=== PATIENT | male | born 1955 | race Caucasian/White ===

== ENCOUNTER 2016-07-04 17:17 | Inpatient (IN) | payer MEDICAID, OTHER ==
[~2016-07-04 17:17] MED LIST: MANNITOL 12.5 GM/50 ML VIAL IV ONE; NALOXONE HCL 0.4 MG/ML AMP IV ONE; NOREPINEPHRINE 4 MG/4 ML AMP IV ONE; NORMOSOL R INJ 1,000 ML IV ONE; PHENYLEPH/NS 1000 MCG/10 ML SYR IV ONE; SODIUM CHLOR 0.9% 250 ML INJ 250 ML IV ONE; SODIUM CHLORID 0.9% 500 ML INJ 500 ML IV ONE; SODIUM CHLORIDE 0.9% INJ 100 ML IV ONE; VECURONIUM BROMIDE 20 MG VIAL IV ONE; ePHEDrine/NS 25 MG/5 ML SYR IV ONE
[2016-07-04 18:50] VITALS: PULSE 47
[2016-07-04 19:00] VITALS: O2SAT 98
[2016-07-04] MEDS ORDERED: ESMOLOL 2500 MG/NS 250 ML PREMIX DRIP IV SCH (19:15)
[2016-07-04] MEDS ORDERED: hydrALAZINE HCL 20 MG/ML VIAL IV PRN (19:15)
[2016-07-04] MEDS ORDERED: LABETALOL HCL 100 MG/20 ML VIAL IV PRN (19:15)
[2016-07-04] MEDS ORDERED: niCARdipine INJ 50 MG in SODIUM CHLOR 0.9% 250 ML INJ 230 ML IV SCH (19:15)
[2016-07-04] MEDS ORDERED: EPINEPHrine HCL (1:10,000) 1 MG/10 ML SYRINGE ONE (19:34)
[2016-07-04] MEDS ORDERED: ATROPINE SULFATE 1 MG/10 ML SYRINGE ONE (19:34)
[2016-07-04] MEDS ORDERED: LIDOCAINE HCL 2% 100 MG/5 ML SYRINGE ONE (19:34)
[2016-07-04 19:35] VITALS: O2SAT 92
--- NOTE | 2016-07-04 19:50 | HHI.HP ---
History of Present Illness Chief Complaint: acute aortic dissection History of Present Illness 60 yo male adm as emergent transfer for acute dissection. Story from referring hospital and pt's brother is that he had shearing back pain today and presented to the ED. A CT of the chest showed a type B dissection. The patient was intubated at the outside facility so the history is obtained from records and the brother. At the time of arrival, the patient has a junctional rhythm and ST changes c/w ischemia. By report, he was moving everything prior to intubation and only complaining of back pain. Past/Family/Social History Past Medical History HTN ?CAD ?CHF Hepatitis alcoholism ?COPD noncompliance Past Surgical History unknown Social History drinker, smoker Family History unknown Coded Allergies: No Known Allergies (Verified , 01/18/07) Review of Systems ROS Limitations: Clinical Condition, Intubated Physical Exam Vitals/I&O Date Time Temp Pulse Resp B/P Pulse Ox O2 Delivery O2 Flow Rate FiO2 07/04/16 19:00 98 100 07/04/16 18:50 95 Mechanical Ventilator 100 07/04/16 18:50 47 Neuro: intubated sedated HEENT: NC/AT Neck: no JVD Heart: reg rate Lungs: intubated Abdomen: not distended Vascular: palpable R femoral but no L femoral pulse Extremities: L leg cooler than pending CTA of chest shows type B dissection. Unfortunately the CT does not include the abdomen and pelvis Assessment and Plan Plan 1. Stat CTA C/A/P 2. Likely TEVAR and possible ex lap, fasciotomies of LLE 3. I talked with the patient's brother (TIM, TANJA) and his about the risks , including but not limited to worsening dissection, , renal failure, paralysis, stroke. 4. Likely emergency surgery - potentially to include TEVAR, potential L C-SC bypass, potential fem-fem bypass, potential laparotomy. Hamlet Long MD Jul 04, 2016 19:50
[2016-07-04] MEDS ORDERED: IOHEXOL 350 MG/ML 10 ML VIAL (for RAD DIAG) IV ONE (19:58)
[2016-07-04 20:00] VITALS: BP 104/57; PULSE 40; PULSE 46; RESP 12; TEMP 97.8; O2SAT 95
[2016-07-04] MEDS ORDERED: BUPIVACAINE/EPINEPHRINE 0.5% PF 30 ML VIAL ONE (20:21)
[2016-07-04] MEDS ORDERED: THROMBIN (TOPICAL) 5,000 UNIT VIAL ONE (20:21)
[2016-07-04] MEDS ORDERED: GELFOAM SIZE 100 ONE (20:21)
[2016-07-04] MEDS ORDERED: PROTAMINE SULFATE 50 MG/5 ML VIAL ONE (20:22)
[2016-07-04] MEDS ORDERED: ceFAZolin INJ 1,000 MG VIAL ONE (20:22)
[2016-07-04] MEDS ORDERED: HEPARIN SODIUM - SQ 10,000 UNITS/ML VIAL ONE (20:22)
[2016-07-04] MEDS ORDERED: HEPARIN SODIUM - IV 10,000 UNITS/10 ML VIAL ONE (20:38)
--- NOTE | 2016-07-04 20:38 | RADRPT ---
EXAM DATE/TIME: 07/04/2016 19:53 [facility] COMPARISON: No previous studies available for comparison. INDICATIONS : Rule out aortic dissection. Absent left femoral pulse. IV CONTRAST: 100 cc Omnipaque 350 (iohexol) IV RADIATION DOSE: 15.13 CTDIvol (mGy) MEDICAL HISTORY : Non-responsive. SURGICAL HISTORY : Non-responsive. ENCOUNTER: Subsequent ACUITY: 1 day PAIN SCALE: Non-responsive LOCATION: Bilateral lower quadrant TECHNIQUE: Volumetric scanning was performed using a multi-row detector CT scanner. The data was post processed with a variety of visualization algorithms including full volume maximum intensity projection, multi -planar sliding thin slab reformation, curved planar reformation, and surface rendering techniques. Using automated exposure control and adjustment of the mA and/or kV according to patient size, radiat ion dose was kept as low as reasonably achievable to obtain optimal diagnostic quality images. FINDINGS: Extensive aortic dissection is present. The aortic dissection begins in the proximal transverse aorta just distal to the origin of the left subclavian artery. Initially the false lumen is thrombosed thr oughout most of the thoracic aorta but does contain contrast in the distal thoracic aorta. The dissection extends into the renal arteries bilaterally. There is occlusion of the right renal art jairo with absent perfusion to the right kidney. The anterior portion of the left kidney does not perfu se. The only perfused kidney is the posterior aspect of the left kidney. Nonobstructing bilateral micheline al calculi. The dissection extends into the proximal celiac and superior mesenteric arteries. There is a stenosis of the proximal celiac from a thrombosed false lumen and there is also stenosis of the superior mese nteric artery from thrombosed false lumen. Stenosis is moderate, approximately 50%. The inferior mesenteric artery is patent. The dissection extends into both common iliac arteries and external iliac arteries. The right interna l iliac artery is occluded. The left internal iliac artery contains dissection but perfuses. There is occlusion of the distal left external iliac artery and poor perfusion of the left femoral ar tylor. On the right side the dissection extends into the superficial femoral artery and profunda femor is artery without occlusion. Endotracheal tube tip is in satisfactory position. There is dependent consolidation in both lungs. No acute bony abnormalities. CONCLUSION: 1. Extensive aortic dissection extending from the proximal transverse aorta just distal to the origin of the left subclavian artery. Dissection extends distally through both superficial femoral arteries . 2. Occlusion of the right renal artery with absent perfusion of the right kidney. Dissection of th e left renal artery with absent perfusion of the anterior left kidney. 3. Thrombosed false lumen in the proximal celiac artery and superior mesenteric artery resulting in m oderate stenosis. 4. Occlusion of left external iliac artery and right internal iliac artery. 5. ET tube in satisfactory position. Dependent consolidation in both lungs. Probable mild liver cirrh osis. No obstruction or free fluid. Russell catheter in decompressed bladder. See above discussion. Rodriguez Jeff MD on July 04, 2016 at 20:24 Board Certified Radiologist. This report was verified electronically.
[2016-07-04 20:49] LABS: AUTOMATED NEUTROPHIL # 12.1 TH/MM3 (1.8-7.7); BASOPHIL # 0.1 TH/MM3 (0-0.2); BASOPHIL % 0.5 % (0.0-2.0); EOSINOPHIL % 0.2 % (0.0-4.0); HEMO FLAGS DIFF FINAL; LYMPH % 5.4 % (9.0-44.0); LYMPHOCYTE # 0.7 TH/MM3 (1.0-4.8); MEAN CELL VOLUME 93.3 FL (80.0-100.0); MEAN CORPUSCULAR HEMOGLOBIN 31.6 PG (27.0-34.0); MEAN CORPUSCULAR HGB CONC 33.9 % (32.0-36.0); MONO % 2.8 % (0.0-8.0); NEUT % 91.1 % (16.0-70.0); PLATELET COUNT 288 TH/MM3 (150-450); RED BLOOD COUNT 4.61 MIL/MM3 (4.50-5.90); RED CELL DISTRIBUTION WIDTH 13.2 % (11.6-17.2); WHITE BLOOD COUNT 13.3 TH/MM3 (4.0-11.0)
[2016-07-04 21:15] VITALS: O2SAT 92
[2016-07-04 21:19] LABS: APTT (PATIENT) 28.4 SEC (24.3-30.1)
[2016-07-04 21:21] LABS: ALKALINE PHOSPHATASE 98 U/L (45-117); ALT (GPT) 57 U/L (12-78); ANION GAP 13 MEQ/L (5-15); AST (GOT) 65 U/L (15-37); BICARBONATE 18.4 MEQ/L (21.0-32.0); BLOOD UREA NITROGEN 13 MG/DL (7-18); CHLORIDE 104 MEQ/L (98-107); GLOMERULAR FILTRATION RATE 42 ML/MIN (>89); POTASSIUM 4.8 MEQ/L (3.5-5.1); SODIUM (NA) 135 MEQ/L (136-145); TOTAL BILIRUBIN ADULT 0.9 MG/DL (0.2-1.0)
--- NOTE | 2016-07-04 21:25 | PD.VS.PN ---
Pre-operative Note Pre-operative diagnosis: acute TBAD with visceral, LE malperfusion Planned procedure: TEVAR, possible CSC bypass, possible L LE revascularization, possible ex lap Interval History: intubated, emergent transfer Labs: Laboratory Results Test 07/04/16 20:20 White Blood Count 13.3 TH/MM3 (4.0-11.0) Red Blood Count 4.61 MIL/MM3 (4.50-5.90) Hemoglobin 14.6 GM/DL (13.0-17.0) Hematocrit 43.0 % (39.0-51.0) Mean Corpuscular Volume 93.3 FL (80.0-100.0) Mean Corpuscular Hemoglobin 31.6 PG (27.0-34.0) Mean Corpuscular Hemoglobin 33.9 % Concent (32.0-36.0) Red Cell Distribution Width 13.2 % (11.6-17.2) Platelet Count 288 TH/MM3 (150-450) Mean Platelet Volume 9.5 FL (7.0-11.0) Sodium Level 135 MEQ/L (136-145) Potassium Level 4.8 MEQ/L (3.5-5.1) Chloride Level 104 MEQ/L (98-107) Carbon Dioxide Level 18.4 MEQ/L (21.0-32.0) Anion Gap 13 MEQ/L (5-15) Blood Urea Nitrogen 13 MG/DL (7-18) Random Glucose 234 MG/DL (74-106) Calcium Level 8.3 MG/DL (8.5-10.1) Blood: T&C 6U PRBC, 4U FFP Imaging: Last Impressions Aorta CTA 07/04/16 0000 Signed Impressions: Service Date/Time: June 19:53 - CONCLUSION: 1. Extensive aortic dissection extending from the proximal transverse aorta just distal to the origin of the left subclavian artery. Dissection extends distally through both superficial femoral arteries. 2. Occlusion of the right renal artery with absent perfusion of the right kidney. Dissection of the left renal artery with absent perfusion of the anterior left kidney. 3. 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 4. Occlusion of left external iliac artery and right internal iliac artery. 5. ET tube in satisfactory position. Dependent consolidation in both lungs. Probable mild liver cirrhosis. No obstruction or free fluid. Russell catheter in decompressed bladder. See above discussion. Rodriguez Jeff MD Orders: NPO Emergent Surgery Post-operative destination: [facility] Operative site marked: No (N/A) Consent: Informed consent has been obtained from the NOK of Hero Trujillo, his brother. I have explained the procedure in detail and discussed the risks, benefits, and potential complications. All questions have been answered. Patient contact information: brother (Luis) [phone] [email or web address] (Chanda) [phone] Hamlet Long MD Jul 04, 2016 21:25
[2016-07-04] MEDS ORDERED: SODIUM CHLOR 0.9% IV ONE (21:30)
[2016-07-04] MEDS ORDERED: METHYLPREDNISOLONE SO SUCC IV ONE (21:30)
[2016-07-04 22:03] LABS: BLOOD GAS BASE EXCESS -8.2 mmol/L (-2-2); BLOOD GAS CARBOXYHEMOGLOBIN 1.7 % (0-4); BLOOD GAS HCO3 18 mmol/L (22-26); BLOOD GAS METHEMOGLOBIN 0.4 % (0-2); BLOOD GAS O2 HGB SATURATION 93 % (90-100); BLOOD GAS OXYGEN CONTENT 19.1 Vol % (12.0-20.0); BLOOD GAS PCO2 42 mmHg (38-42); BLOOD GAS PO2 84 mmHG (61-120); BLOOD GAS TOTAL HGB 14.6 G/DL (12.0-16.0); CRITICAL VALUE YES; TEMP CORR TO 98.6
[2016-07-04 22:04] LABS: DRAW SITE ART LINE; FIO2 100 %; NUMBER OF ARTERIAL PUNCTURES 0; STAT YES; VENT SETTINGS AC12/500 5 PEEP
[2016-07-04] MEDS ORDERED: IOHEXOL 300 MG/ML 50 ML BTL (for RAD DIAG) OTHER ONE (22:04)
--- NOTE | 2016-07-04 22:18 | PD.PROCEDR ---
Procedure Note Procedure Procedure: Arterial Line Placement Right radial arterial line Diagnosis: Acute type B dissection Indications: For beat to beat hemodynamic monitoring Consent: Consent is deemed emergent or medically necessary Description of the Procedure: The right wrist was prepped and draped sterilely. 1% lidocaine was used for local anesthesia. The pulse was located and a needle was advanced into the artery. A 20 gauge, 12 cm catheter was advanced into the artery using a modified Seldinger technique. The catheter was sutured to the skin and a sterile dressing was applied. The catheter was connected to a pressure transducer and an arterial waveform was noted. There were no immediate complications noted. There was minimal EBL. I personally performed the procedure. Dennis Rich MD Jul 04, 2016 22:18
--- NOTE | 2016-07-04 22:18 | PD.CONS ---
[facility] Service Critical Care Medicine Consult Requested By Uzair Long Reason for Consult Acute Type B dissection Primary Care Physician Unknown History of Present Illness This is a 60-year-old male who is transferred emergently from outside hospital with per report and acute type B dissection. Apparently the patient told his family member today that he had searing back pain and was taken to the emergency department. A CT of the chest at that time showed a type B dissection. The patient was intubated the outside facility and transferred to [facility] for emergent evaluation management. Unfortunately, the patient is unable to provide any additional history at this time. I was at bedside and the patient arrived to the surgical intensive care unit. Dr. Long and I both evaluated the patient and when he arrived he was in a junctional bradycardia with heart rate in the 40s. He had obvious ST depressions in lead II on telemetry. Our initial concern was that we have extended the dissection into the type A dissection. We also did not have any CT of the abdomen and pelvis. On her physical exam, the patient had a cold left foot without pulses. I emergently placed a right radial arterial line, please see separate procedure note for details. We then went emergently to the CT scanner for repeat CT aortogram of the chest abdomen and pelvis to investigate the extent to which the dissection has extended. The CT aortogram demonstrated that this was still a type B dissection with the celiac artery being significantly compressed and possibly comprising flow from the dissection flap. The right kidney appears to be perfused off the false lumen and not the true lumen, and there is no contrast going down the left femoral artery. Patient was then brought back to the intensive care unit. His blood pressure is controlled on nicardipine infusion for goal systolic blood pressure less than 110. A 12-lead EKG at that time was done which demonstrated significant ST depressions in the inferior leads as well as the far lateral leads consistent with subendocardial ischemia. At the request of Dr. Long in anticipation of going emergently to the operative theater, I placed a lumbar drain for spinal protection, please see separate procedure note for details. At that point the patient was taken emergently to the operating room. Critical care medicine is been consulted to evaluate and manage the patient's type B dissection, hemodynamic's, acute hypoxic respiratory failure. Review of Systems ROS Limitations: Clinical Condition, Intubated, Altered Mental Status, Unresponsive Past Family Social History Allergies: Coded Allergies: No Known Allergies (Verified , 01/18/07) Past Medical History The patient is unable to provide a past medical history. Per outside hospital records: Hypertension Coronary artery disease Congestive heart failure Hepatitis C Alcoholism COPD Medication noncompliance Past Surgical History Patient is unable to provide past surgical history given his clinical condition Reported Medications Patient is unable to provide medication list due to his clinical condition Active Ordered Medications See MAR Family History Patient is unable to provide a family history due to his clinical condition Social History Patient is unable to provide a social history due to his clinical condition. Per outside hospital records positive EtOH use and positive tobacco use Physical Exam Vital Signs Vital Signs Date Time Temp Pulse Resp B/P Pulse Ox O2 Delivery O2 Flow Rate FiO2 07/04/16 19:00 98 100 07/04/16 18:50 95 Mechanical Ventilator 100 07/04/16 18:50 47 Physical Exam GENERAL: Middle-aged male, lying in bed, intubated, sedated, critically ill HEENT: Normocephalic. Atraumatic. Pupils 2 mm, equal, round, reactive, conjugate. Mucous membranes are moist. NECK: He has midline. No JVD. Orotracheally intubated CHEST: Equal chest rise. Clear to auscultation. CARDIOVASCULAR: Bradycardic rate, regular rhythm. Appears narrow complex and junctional by telemetry. No appreciable murmurs. ABDOMEN: Soft, nontender, nondistended. No guarding. MUSCULOSKELETAL: Right radial pulse 2+, left radial pulses 1+, right DP pulse 1+ , left DP pulse absent. Left foot is noticeably cold, poikilothermy, pulseless , with poor capillary refill. Right foot is warm with modest Refill NEUROLOGICAL: RASS -5. Intubated, sedated. Laboratory Laboratory Tests Test 07/04/16 07/04/16 19:20 20:20 Blood Type A POSITIVE Antibody Screen NEGATIVE Crossmatch Leukocyte-Reduced Red Blood Cells Blood Bank Comment White Blood Count 13.3 Red Blood Count 4.61 Hemoglobin 14.6 Hematocrit 43.0 Mean Corpuscular Volume 93.3 Mean Corpuscular Hemoglobin 31.6 Mean Corpuscular Hemoglobin 33.9 Concent Red Cell Distribution Width 13.2 Platelet Count 288 Mean Platelet Volume 9.5 Neutrophils (%) (Auto) 91.1 Lymphocytes (%) (Auto) 5.4 Monocytes (%) (Auto) 2.8 Eosinophils (%) (Auto) 0.2 Basophils (%) (Auto) 0.5 Neutrophils # (Auto) 12.1 Lymphocytes # (Auto) 0.7 Monocytes # (Auto) 0.4 Eosinophils # (Auto) 0.0 Basophils # (Auto) 0.1 CBC Comment DIFF FINAL Differential Comment Activated Partial 28.4 Thromboplast Time Sodium Level 135 Potassium Level 4.8 Chloride Level 104 Carbon Dioxide Level 18.4 Anion Gap 13 Blood Urea Nitrogen 13 Creatinine 1.67 Estimat Glomerular Filtration 42 Rate Random Glucose 234 Calcium Level 8.3 Total Bilirubin 0.9 Aspartate Amino Transf 65 (AST/SGOT) Alanine Aminotransferase 57 (ALT/SGPT) Alkaline Phosphatase 98 Total Protein 6.9 Albumin 2.6 Result Diagram: 07/04/16201907/04/162019 Imaging I performed emergent bedside transthoracic critical care echocardiography which demonstrated grossly preserved biventricular function. No significant valvular lesions. No pericardial effusion. I did see a dissection flap in the descending thoracic aorta in parasternal long axis. I did not see any dissection flap in the ascending aorta in both parasternal long and parasternal short axis. I did not visualize any significant aortic regurgitation. Last 24 hours Impressions Aorta CTA 07/04/16 0000 Signed Impressions: Service Date/Time: June 19:53 - CONCLUSION: 1. Extensive aortic dissection extending from the proximal transverse aorta just distal to the origin of the left subclavian artery. Dissection extends distally through both superficial femoral arteries. 2. Occlusion of the right renal artery with absent perfusion of the right kidney. Dissection of the left renal artery with absent perfusion of the anterior left kidney. 3. 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 4. Occlusion of left external iliac artery and right internal iliac artery. 5. ET tube in satisfactory position. Dependent consolidation in both lungs. Probable mild liver cirrhosis. No obstruction or free fluid. Russell catheter in decompressed bladder. See above discussion. 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 He is very critically ill this time. Plan by systems: Neurologic: Acute encephalopathy Risk for spinal cord hypoperfusion Possible alcohol abuse Lumbar drain placement Propofol, fentanyl for goal RASS -2 Spinal cord injury protection protocol per Dr. Long Watch for withdrawal symptoms Continue lumbar drain at 10 cm Narcan drip per protocol Respiratory: Acute hypoxic and hypercarbic respiratory failure Vent bundle Head of bed elevated. We will keep patient flat and in mild reverse Trendelenburg given recent endovascular procedure Does not meet SBT criteria today given his hemodynamic instability Wean FiO2 for goal SPO2 greater than 90% Nebs every 6 and every 2 when necessary Cardiovascular: Acute type B dissection Evidence of myocardial ischemia Junction bradycardia Goal systolic blood pressure less than 110 prior to securing. Goal heart rate less than 70 prior to securing Nicardipine to achieve these goals given that the patient is already bradycardic After the patient returns to the operating room secured, we will maintain an map goal greater than 90 Renal: Acute kidney injury Likely secondary to hyperperfusion of the kidney -- Strict I/Os Russell placement Every hour urine outputs FEN/GI: Intravascular hypovolemia Hyperkalemia Evidence of mesenteric ischemia by CT Nothing by mouth ICU electrolyte protocol Daily BMP Trend lactates Heme/ID: Leukocytosislikely reactive Daily CBC No infectious etiology suspected this time Perioperative antibiotics per surgeon Daily coags Endocrine: Hyperglycemia of critical illness -- SSI, medium scale, every 6 hours Prophylaxis: GI Prophylaxis Protonix 40 mg IV every 24 DVT Prophylaxis -- SCDs We will avoid using Lovenox given the spinal drain. The patient may receive heparin subcutaneous every 12 or may remain on a heparin infusion if needed. Patient may additionally receive aspirin, but not Plavix. Lines: 07/04 right radial arterial line 07/04 Russell 07/04 lumbar drain Dispo: Admit to the surgical intensive care unit. He remains very critically ill This patient remains critically ill with one or more organ systems which are or may become a threat to life. I have spent in excess of 136 minutes discontinuously in the care and management of this patient. This time is exclusive of procedures, and includes, but is not limited to, evaluation of the patient, review of the medical record, discussions with family, consultants, nursing staff, or respiratory therapy, and documentation in the medical record. Code Status Full Code Discussed Condition With Dr. Campos, Dr. Long, the patient's family, the ICU supervisor propellant charge loading, ICU Bedside RN , Anesthesiologist, PREP PERSON. Dennis Rich MD Jul 04, 2016 22:18
--- NOTE | 2016-07-04 22:31 | PD.PROCEDR ---
Procedure Note Procedure Lumbar Drain Placement Diagnosis: Acute type B dissection Indications: Reduction in an intraspinal pressure during and post thoracic dissection repair. This is a 60-year-old gentleman with an acute type B dissection meeting emergent operative securing of his thoracic dissection. I discussed the case at length with Dr. Long the attending vascular surgeon on- call. He is concerned that the patient is at high risk for paralysis given the size and location of the dissection. I agree with his assessment. Together we have agreed that the placement of a lumbar drain to reduce intraspinal pressure and mitigate the risk of postoperative paralysis is medically indicated. I also discussed this case with Dr. Campos who concurs with our assessment and agrees that emergent placement of the drain is warranted. Consent: Both Dr. Long and myself have discussed the care of this patient with his son and medical decision maker. Unfortunately, due to the emergent nature the procedure, did not have a written consent form available to me. However, I did discuss the risks, benefits, and alternatives of the procedure, including the risks of bleeding, infection, spinal headache, epidural hematoma or epidural abscess resulting in paralysis or permanent nerve damage. The family agrees to proceed and agrees with our assessment of the benefits of this procedure outweigh its risks. Anesthesia: 1% lidocaine locally. Propofol IV. Description of the Procedure: The patient was placed in the left lateral decubitus position. The patient was prepped and draped sterilely. 1% lidocaine was infiltrated subcutaneously. A 14g Touhy needle was inserted into the L4 5 interspace and advanced until CSF was obtained at 7 cm from the skin. The lumbar drain catheter was advanced easily and without resistance through the needle to a depth of 18 cm at the skin. The needle was removed. The lumbar drain was sutured to the skin using 2-0 interrupted silk sutures. An occlusive clear dressing was applied. The patient was returned to the supine position. There were no immediate complications noted. There was minimal EBL. The patient tolerated the procedure well. I personally performed the procedure. Dennis Rich MD Jul 04, 2016 22:31
[2016-07-04] MEDS ORDERED: MAGNESIUM OXIDE 400 MG TAB PO PRN (22:45)
[2016-07-04] MEDS ORDERED: SODIUM CHLORIDE 0.9% FLUSH 10 ML FLUSH IV FLUSH PRN (22:45)
[2016-07-04] MEDS ORDERED: MAGNESIUM SULFATE INJ 2 GM in SODIUM CHLORIDE 0.9% INJ 96 ML IV PRN (22:45)
[2016-07-04] MEDS ORDERED: POTASSIUM PHOSPHATE MONOBASIC 500 MG TAB PO/TUBE PRN (22:45)
[2016-07-04] MEDS ORDERED: POTASSIUM CHLOR 40 MEQ PREMIX 100 ML IV PRN ×2 (22:45)
[2016-07-04] MEDS ORDERED: MISCELLANEOUS NURSING INFORMATION XX SCH (22:45)
[2016-07-04] MEDS ORDERED: POTASSIUM CHLOR 20 MEQ PREMIX 100 ML IV PRN ×2 (22:45)
[2016-07-04] MEDS ORDERED: CHLORHEXIDINE GLUCONATE 2 % 1 PACK (2 CLOTHS) TOP PRN (22:45)
[2016-07-04] MEDS ORDERED: POTASSIUM PHOSPHATE INJ 30 MMOL in SODIUM CHLOR 0.9% 250 ML INJ 250 ML IV PRN (22:45)
[2016-07-04] MEDS ORDERED: DEXTROSE 50% IN WATER 50 ML VIAL(D50) IV PUSH PRN (22:45)
[2016-07-04] MEDS ORDERED: ONDANSETRON HCL 4 MG/2 ML VIAL IV PRN (22:45)
[2016-07-04] MEDS ORDERED: SODIUM PHOSPHATE INJ 30 MMOL in SODIUM CHLOR 0.9% 250 ML INJ 240 ML IV PRN (22:45)
[2016-07-04] MEDS ORDERED: POTASSIUM PHOSPHATE MONOBASIC 500 MG TAB PO PRN (22:45)
[2016-07-04] MEDS ORDERED: RESP: ALBUTEROL 2.5 MG/IPRATROPIUM 0.5 MG NEB (PRN) INH (22:45)
[2016-07-04] MEDS ORDERED: MAGNESIUM SULFATE INJ 4 GM in SODIUM CHLORIDE 0.9% INJ 92 ML IV PRN (22:45)
[2016-07-04] MEDS ORDERED: NALOXONE INJ 4 MG in DEXTROSE 5% IN WATER INJ 246 ML IV SCH ×2 (23:00)
[2016-07-04] MEDS ORDERED: SODIUM CHLOR 0.9% 1000 ML INJ 1,000 ML IV SCH (23:00)
[2016-07-04] MEDS ORDERED: MULTIVITAMIN INJ 10 ML, THIAMINE INJ 100 MG, FOLIC ACID INJ 1 MG in SODIUM CHLOR 0.45% ... IV ONE (23:00)
[2016-07-04] MEDS ORDERED: ALBUMIN HUMAN 25% 25 GM/100 ML BAGP IV PRN (23:00)
--- NOTE | 2016-07-04 23:32 | HHI.PR ---
Immediate Post Op Note Procedure Date: Jul 04, 2016 Pre Op Diagnosis: acute type B aortic dissection with malperfusion of viscera, renal arteries, and LLE Post Op Diagnosis: acute type B aortic dissection with malperfusion of viscera, renal arteries, and LLE Surgeon: Hamlet Long Fitter / Welder(s): none Procedure: 1. TEVAR w/ [place] [id number], [id number] 2. IVUS of aorta 3. L LE fasciotomy 4. R HOSPICE MASSAGE THERAPIST Perclose 5. L HOSPICE MASSAGE THERAPIST Angioseal Findings: 1. Substantial improvement in TL size after TEVAR 2. Perfusion of celiac, SMA, and L renal artery as well as L LE after TEVAR; persistent thrombosis R renal artery 3. Muscle L LE viable Additional Information: + Doppler signals B LE Complications: none apparent Specimen(s) removed: none Estimated blood loss: 100mL Anesthesia: General Drains: Other (spinal drain (placed pre-operatively)) Fluids: 1500 mL IVF Patient to: ISC Patient Condition: Critical Implant/Devices: SEE IMPLANT LOG (if applicable) Date/Time of Procedure: SEE SURGICAL CARE RECORD Hamlet Long MD Jul 04, 2016 23:32
[2016-07-05] VITALS (22 sets, daily range): BP systolic 131–166; BP diastolic 53–63; PULSE 46–77; RESP 14–23; TEMP 93–97.8; O2SAT 94–100
[2016-07-05] MEDS ORDERED: fentaNYL CITRATE 250 MCG/5 ML AMP ONE (00:10)
[2016-07-05] MEDS ORDERED: SODIUM BICARBONATE 8.4% INJ 50 MEQ/50 ML SYR ONE (00:36)
[2016-07-05 00:37] LABS: BLOOD GAS BASE EXCESS -6.3 mmol/L (-2-2); BLOOD GAS CARBOXYHEMOGLOBIN 1.2 % (0-4); BLOOD GAS HCO3 20 mmol/L (22-26); BLOOD GAS METHEMOGLOBIN 0.6 % (0-2); BLOOD GAS O2 HGB SATURATION 97 % (90-100); BLOOD GAS OXYGEN CONTENT 19.7 Vol % (12.0-20.0); BLOOD GAS PCO2 52 mmHg (38-42); BLOOD GAS PO2 131 mmHG (61-120); BLOOD GAS TOTAL HGB 14.3 G/DL (12.0-16.0); CRITICAL VALUE YES; TEMP CORR TO 98.6
[2016-07-05 00:38] LABS: DRAW SITE ART LINE; FIO2 100 %; OXYGEN DEVICE VENTILATOR; STAT YES; VENT SETTINGS PRVC/AC
[2016-07-05] MEDS ORDERED: ALBUMIN HUMAN 5% 25 GM/500 ML BOTTLE IV ONE (00:45)
--- NOTE | 2016-07-05 00:45 | RADRPT ---
EXAM DATE/TIME: 07/05/2016 00:09 [facility] COMPARISON: CTA THORACIC ABDOMINAL AORTA W 3D RECON, July 04, 2016, 19:53. INDICATIONS : Evaluate for line placement. MEDICAL HISTORY : Unobtainable. SURGICAL HISTORY : Unobtainable. ENCOUNTER: Initial ACUITY: 1 day PAIN SCORE: Non-responsive. LOCATION: chest FINDINGS: A single portable frontal view the chest in the supine position shows a stent graft involving the glo cending thoracic aorta. Heart is mildly enlarged. Perihilar intraorbital infiltrate is seen on the ri ght. Left lung is clear. No pneumothorax or effusion. Endotracheal tube tip 4 cm proximal to the zac na. Right internal jugular vein central venous line. CONCLUSION: 1. Descending thoracic endograft. 2. Mild cardiomegaly. 3. Right lung infiltrate. Joe Appiah Jr., MD on July 05, 2016 at 0:40 Board Certified Radiologist. This report was verified electronically.
[2016-07-05 00:58] LABS: HEMATOCRIT 42.1 % (39.0-51.0); MEAN CELL VOLUME 93.2 FL (80.0-100.0); MEAN CORPUSCULAR HEMOGLOBIN 31.8 PG (27.0-34.0); MEAN CORPUSCULAR HGB CONC 34.1 % (32.0-36.0); PLATELET COUNT 169 TH/MM3 (150-450); RED BLOOD COUNT 4.52 MIL/MM3 (4.50-5.90); RED CELL DISTRIBUTION WIDTH 13.6 % (11.6-17.2); REVIEW FLAG FINAL; WHITE BLOOD COUNT 28.2 TH/MM3 (4.0-11.0)
[2016-07-05 01:00] LABS: BLOOD GAS VENOUS BASE EXCESS -0.1 mmol/L (-2-2); BLOOD GAS VENOUS HCO3 26 mmol/L (22-26); BLOOD GAS VENOUS O2 CONTENT 17.3 Vol % (9.0-17.0); BLOOD GAS VENOUS O2 HGB SAT 86 % (70-76); BLOOD GAS VENOUS PCO2 61 mmHg (44-48); BLOOD GAS VENOUS PO2 60 mmHg (35-40); BLOOD GAS VENOUS pH 7.26 (7.360-7.400); TEMP CORR TO 98.6
[2016-07-05 01:01] LABS: CRITICAL VALUE YES; DRAW SITE CENTRAL LINE; FIO2 100 %; OXYGEN DEVICE VENTILATOR
[2016-07-05 01:02] LABS: STAT YES; VENT SETTINGS PRVC/AC
[2016-07-05] MEDS: INSULIN NovoLIN REGULAR SUPPLEMENTAL SCALE SQ SCH ×5 (01:05→23:48)
[2016-07-05 01:11] LABS: PROTHROMBIN TIME - PATIENT 10.8 SEC (9.8-11.6)
[2016-07-05] MEDS ORDERED: SODIUM BICARBONATE 8.4% INJ 50 MEQ/50 ML SYR IV PUSH ONE (01:15)
[2016-07-05 01:26] LABS: ALKALINE PHOSPHATASE 92 U/L (45-117); ALT (GPT) 83 U/L (12-78); ANION GAP 11 MEQ/L (5-15); AST (GOT) 218 U/L (15-37); BICARBONATE 21.7 MEQ/L (21.0-32.0); BLOOD UREA NITROGEN 14 MG/DL (7-18); CHLORIDE 104 MEQ/L (98-107); GLOMERULAR FILTRATION RATE 41 ML/MIN (>89); MAGNESIUM 2.2 MG/DL (1.5-2.5); SODIUM (NA) 137 MEQ/L (136-145); TOTAL BILIRUBIN ADULT 1.5 MG/DL (0.2-1.0)
[2016-07-05] MEDS: SODIUM BICARBONATE 8.4% INJ 150 MEQ in DEXTROSE 5% IN WATE 1000ML INJ 1,000 ML IV SCH ×6 (02:05→23:28)
[2016-07-05] MEDS: THIAMINE INJ 100 MG in SODIUM CHLORIDE 0.9% INJ 100 ML IV SCH (02:53)
[2016-07-05] MEDS: RESP: ALBUTEROL 2.5 MG/IPRATROPIUM 0.5 MG NEB (SCH) INH ×4 (03:20→20:03)
[2016-07-05] MEDS: CHLORHEXIDINE GLUCONATE 2 % 1 PACK (2 CLOTHS) TOP SCH (04:00)
[2016-07-05 04:53] LABS: HEMATOCRIT 39.3 % (39.0-51.0); MEAN CELL VOLUME 93.3 FL (80.0-100.0); MEAN CORPUSCULAR HGB CONC 34.3 % (32.0-36.0); PLATELET COUNT 118 TH/MM3 (150-450); RED BLOOD COUNT 4.22 MIL/MM3 (4.50-5.90); RED CELL DISTRIBUTION WIDTH 13.3 % (11.6-17.2); REVIEW FLAG FINAL; WHITE BLOOD COUNT 23.8 TH/MM3 (4.0-11.0)
[2016-07-05 05:26] LABS: ALKALINE PHOSPHATASE 78 U/L (45-117); ALT (GPT) 114 U/L (12-78); ANION GAP 11 MEQ/L (5-15); AST (GOT) 312 U/L (15-37); BICARBONATE 25.5 MEQ/L (21.0-32.0); BLOOD UREA NITROGEN 17 MG/DL (7-18); CHLORIDE 100 MEQ/L (98-107); CREATINE KINASE 206 U/L (39-308); GLOMERULAR FILTRATION RATE 39 ML/MIN (>89); INDIRECT BILIRUBIN 0.6 MG/DL (0.0-0.8); POTASSIUM 3.5 MEQ/L (3.5-5.1); SODIUM (NA) 136 MEQ/L (136-145)
[2016-07-05 05:29] LABS: BLOOD GAS BASE EXCESS -4.8 mmol/L (-2-2); BLOOD GAS CARBOXYHEMOGLOBIN 1.2 % (0-4); BLOOD GAS HCO3 21 mmol/L (22-26); BLOOD GAS METHEMOGLOBIN 0.9 % (0-2); BLOOD GAS O2 HGB SATURATION 96 % (90-100); BLOOD GAS OXYGEN CONTENT 16.8 Vol % (12.0-20.0); BLOOD GAS PCO2 44 mmHg (38-42); BLOOD GAS PO2 109 mmHg (61-120); BLOOD GAS TOTAL HGB 12.4 G/DL (12.0-16.0); TEMP CORR TO 98.6
[2016-07-05 05:30] LABS: CRITICAL VALUE YES; OXYGEN DEVICE VENTILATOR; VENT SETTINGS PRVC/AC
[2016-07-05 05:31] LABS: DRAW SITE ART LINE; FIO2 100 %; STAT NO
[2016-07-05 05:54] LABS: CKMB 19.3 NG/ML (0.5-3.6)
[2016-07-05 06:53] LABS: CALCIUM-PROTEIN CORRECTED 7.6 MG/DL (8.5-10.1)
[2016-07-05] MEDS: SODIUM CHLORIDE 0.9% FLUSH 10 ML FLUSH IV FLUSH SCH ×2 (07:43→20:20)
--- NOTE | 2016-07-05 08:05 | PD.VS.PN ---
Subjective POD #: 1 Procedure(s): TEVAR, L LE fasciotomies for acute TBAD with visceral/renal/LLE malperfusion Subjective/Hospital Course HD stable overnight; req pressors for goal SBP 140. Not yet awoken neurologically Only acute event overnight was bleeding from L LE fasciotomy sites - venous and reinforced Objective Neuro: Still sedated - likely metabolic as no focal deficits PERRLA (3 to 2, symmetric) Pulmonary: ventilated CO2 44 and PaO2 101; infiltrates on CXR post-op as expected Cardiac: reg rate; pressors for goal SBP 140 for spinal cord protection; LA 2.5 (from 2.8 , likely slow to clear because of hepatic dysfunction) troponin elevated (1.75), sinus rhythm palpable pedal pulses fasciotomy site re-dressed on rounds - venous bleeding FEN/GI: NPO still e'lytes ok - K 3.5 : + UOP - 100 ml/hr; creatinine 1.8 from 1.7 ID Antibiotics(date/duration): none Leukocytosis likely from steroids given for SCI protection intra-op Heme: Hct 39, stable Drains: spinal drain in place Laboratory Laboratory Tests Test 07/04/16 07/04/16 07/04/16 07/05/16 19:20 19:53 20:20 00:20 Blood Type A POSITIVE Antibody Screen NEGATIVE Crossmatch Leukocyte-Reduced Red Blood Cells Blood Bank Comment Blood Gas Puncture Site ART LINE ART LINE Blood Gas Patient Temperature 98.6 98.6 Blood Gas HCO3 18 20 Blood Gas Base Excess -8.2 -6.3 Blood Gas Oxygen Saturation 93 97 Arterial Blood pH 7.25 7.22 Arterial Blood Partial 42 52 Pressure CO2 Arterial Blood Partial 84 131 Pressure O2 Arterial Blood Oxygen Content 19.1 19.7 Arterial Blood 1.7 1.2 Carboxyhemoglobin Arterial Blood Methemoglobin 0.4 0.6 Blood Gas Hemoglobin 14.6 14.3 Oxygen Delivery Device VENTILATOR Blood Gas Ventilator Setting AC12/500 5 PRVC/AC PEEP Blood Gas Inspired Oxygen 100 100 White Blood Count 13.3 Red Blood Count 4.61 Hemoglobin 14.6 Hematocrit 43.0 Mean Corpuscular Volume 93.3 Mean Corpuscular Hemoglobin 31.6 Mean Corpuscular Hemoglobin 33.9 Concent Red Cell Distribution Width 13.2 Platelet Count 288 Mean Platelet Volume 9.5 Neutrophils (%) (Auto) 91.1 Lymphocytes (%) (Auto) 5.4 Monocytes (%) (Auto) 2.8 Eosinophils (%) (Auto) 0.2 Basophils (%) (Auto) 0.5 Neutrophils # (Auto) 12.1 Lymphocytes # (Auto) 0.7 Monocytes # (Auto) 0.4 Eosinophils # (Auto) 0.0 Basophils # (Auto) 0.1 CBC Comment DIFF FINAL Differential Comment Activated Partial 28.4 Thromboplast Time Sodium Level 135 Potassium Level 4.8 Chloride Level 104 Carbon Dioxide Level 18.4 Anion Gap 13 Blood Urea Nitrogen 13 Creatinine 1.67 Estimat Glomerular Filtration 42 Rate Random Glucose 234 Calcium Level 8.3 Total Bilirubin 0.9 Aspartate Amino Transf 65 (AST/SGOT) Alanine Aminotransferase 57 (ALT/SGPT) Alkaline Phosphatase 98 Total Protein 6.9 Albumin 2.6 Test 07/05/16 07/05/16 07/05/16 07/05/16 00:40 00:50 04:34 04:36 White Blood Count 28.2 23.8 Red Blood Count 4.52 4.22 Hemoglobin 14.4 13.5 Hematocrit 42.1 39.3 Mean Corpuscular Volume 93.2 93.3 Mean Corpuscular Hemoglobin 31.8 32.0 Mean Corpuscular Hemoglobin 34.1 34.3 Concent Red Cell Distribution Width 13.6 13.3 Platelet Count 169 118 Mean Platelet Volume 9.1 9.1 Prothrombin Time 10.8 Prothromb Time International 1.0 Ratio Sodium Level 137 136 Potassium Level 4.0 3.5 Chloride Level 104 100 Carbon Dioxide Level 21.7 25.5 Anion Gap 11 11 Blood Urea Nitrogen 14 17 Creatinine 1.72 1.80 Estimat Glomerular Filtration 41 39 Rate Random Glucose 66 151 Lactic Acid Level 2.7 2.5 Calcium Level 7.6 7.1 Phosphorus Level 3.9 Magnesium Level 2.2 Total Bilirubin 1.5 2.0 Aspartate Amino Transf 218 312 (AST/SGOT) Alanine Aminotransferase 83 114 (ALT/SGPT) Alkaline Phosphatase 92 78 Total Protein 6.5 6.2 Albumin 2.6 2.8 Blood Gas Puncture Site CENTRAL LINE Blood Gas Patient Temperature 98.6 Venous Blood pH 7.26 Venous Blood Partial Pressure 61 CO2 Venous Blood Partial Pressure 60 O2 Venous Blood HCO3 26 Venous Blood Oxygen Saturation 86 Venous Blood Oxygen Content 17.3 Venous Blood Base Excess -0.1 Oxygen Delivery Device VENTILATOR Blood Gas Ventilator Setting PRVC/AC Blood Gas Inspired Oxygen 100 Protein Corrected Calcium 7.6 Direct Bilirubin 1.4 Indirect Bilirubin 0.6 Total Creatine Kinase 206 Creatine Kinase MB 19.3 Troponin I 1.75 Test 07/05/16 05:17 Blood Gas Puncture Site ART LINE Blood Gas Patient Temperature 98.6 Blood Gas HCO3 21 Blood Gas Base Excess -4.8 Blood Gas Oxygen Saturation 96 Arterial Blood pH 7.29 Arterial Blood Partial 44 Pressure CO2 Arterial Blood Partial 109 Pressure O2 Arterial Blood Oxygen Content 16.8 Arterial Blood 1.2 Carboxyhemoglobin Arterial Blood Methemoglobin 0.9 Blood Gas Hemoglobin 12.4 Oxygen Delivery Device VENTILATOR Blood Gas Ventilator Setting PRVC/AC Blood Gas Inspired Oxygen 100 Imaging Last 48 hours Impressions Chest X-Ray 07/05/16 0000 Signed Impressions: Service Date/Time: Tuesday, July 05, 2016 00:09 - CONCLUSION: 1. Descending thoracic endograft. 2. Mild cardiomegaly. 3. Right lung infiltrate. oJe Appiah Jr., MD Aorta CTA 07/04/16 0000 Signed Impressions: Service Date/Time: June 19:53 - CONCLUSION: 1. Extensive aortic dissection extending from the proximal transverse aorta just distal to the origin of the left subclavian artery. Dissection extends distally through both superficial femoral arteries. 2. Occlusion of the right renal artery with absent perfusion of the right kidney. Dissection of the left renal artery with absent perfusion of the anterior left kidney. 3. 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 4. Occlusion of left external iliac artery and right internal iliac artery. 5. ET tube in satisfactory position. Dependent consolidation in both lungs. Probable mild liver cirrhosis. No obstruction or free fluid. Russell catheter in decompressed bladder. See above discussion. Rodriguez Jeff MD Assessment and Plan Plan POD#1 s/p TEVAR and L LE fasciotomy Overall he looks great considering magnitude of event yesterday 1. Neuro: continue to hold sedation and attempt neuro checks; continue spinal drain; if still no resumption of motor function by tomorrow, will get NC head CT ; continue adjunctive SCI protective measures 2. Resp: wean vent as tolerated 3. CV: Goal SBP 140 for SCI protection; TTE today, likely demand ischemia; trend troponins; trend L.A. 4. FEN/GI: place enteral feeding tube and ok to start trickly TF only for today 5. : Monitor renal function. Pt has one functional kidney, so likely ATN 6. ID: no issues 7. Heme: no issues 8. endocrine: SSI as per ICU team 9. continue pulse checks - perfusion to LLE restored with TEVAR 10. Change L LE fasciotomy dressing as required; may need topical hemostatic agent to help with venous oozing Hamlet Long MD Jul 05, 2016 08:05
[2016-07-05] MEDS: PANTOPRAZOLE SODIUM 40 MG VIAL IV SCH (08:43)
[2016-07-05] MEDS: MULTIVITAMIN TAB PO SCH (08:44)
[2016-07-05] MEDS: DOCUSATE SODIUM 50 MG/SENNA 8.6 MG TAB PO SCH ×2 (08:44→20:18)
[2016-07-05] MEDS: CHLORHEXIDINE 0.12% (ORAL KIT) 15 ML CUP MT SCH ×2 (08:44→20:20)
--- NOTE | 2016-07-05 09:30 | HHI.CCPN ---
Subjective Remarks/Hospital Course Hospital Course: This is a 60-year-old male who is transferred emergently from outside hospital with per report and acute type B dissection. Apparently the patient told his family member today that he had searing back pain and was taken to the emergency department. A CT of the chest at that time showed a type B dissection. The patient was intubated the outside facility and transferred to [place] for emergent evaluation management. Unfortunately, the patient is unable to provide any additional history at this time. I was at bedside and the patient arrived to the surgical intensive care unit. Dr. Long and I both evaluated the patient and when he arrived he was in a junctional bradycardia with heart rate in the 40s. He had obvious ST depressions in lead II on telemetry. Our initial concern was that we have extended the dissection into the type A dissection. We also did not have any CT of the abdomen and pelvis. On her physical exam, the patient had a cold left foot without pulses. I emergently placed a right radial arterial line, please see separate procedure note for details. We then went emergently to the CT scanner for repeat CT aortogram of the chest abdomen and pelvis to investigate the extent to which the dissection has extended. The CT aortogram demonstrated that this was still a type B dissection with the celiac artery being significantly compressed and possibly comprising flow from the dissection flap. The right kidney appears to be perfused off the false lumen and not the true lumen, and there is no contrast going down the left femoral artery. Patient was then brought back to the intensive care unit. His blood pressure is controlled on nicardipine infusion for goal systolic blood pressure less than 110. A 12-lead EKG at that time was done which demonstrated significant ST depressions in the inferior leads as well as the far lateral leads consistent with subendocardial ischemia. At the request of Dr. Long in anticipation of going emergently to the operative theater, I placed a lumbar drain for spinal protection, please see separate procedure note for details. At that point the patient was taken emergently to the operating room. Critical care medicine is been consulted to evaluate and manage the patient's type B dissection, hemodynamic's, acute hypoxic respiratory failure. Subjective: 07/05: taken to OR for TAVR overnight. lactate cleared overnight. uop adequate. Cr elevated to 1.8 this AM. Objective Vital Signs Date Time Temp Pulse Resp B/P Pulse Ox O2 Delivery O2 Flow Rate FiO2 07/05/16 07:31 94 100 07/05/16 07:00 Mechanical Ventilator 07/05/16 06:00 54 07/05/16 04:00 93.0 14 158/61 Result Diagram: 07/05/16 0436 07/05/16 0434 Other Results Laboratory Tests Test 07/04/16 07/05/16 07/05/16 07/05/16 19:53 00:20 00:50 05:17 Blood Gas Puncture Site ART LINE ART LINE CENTRAL LINE ART LINE Blood Gas Patient Temperature 98.6 98.6 98.6 98.6 Blood Gas HCO3 18 mmol/L 20 mmol/L 21 mmol/L (22-26) (22-26) (22-26) Blood Gas Base Excess -8.2 mmol/L -6.3 mmol/L -4.8 mmol/L (-2-2) (-2-2) (-2-2) Blood Gas Oxygen Saturation 93 % (90-100) 97 % (90-100) 96 % (90-100) Arterial Blood pH 7.25 7.22 7.29 (7.380-7.420) (7.380-7.420) (7.380-7.420) Arterial Blood Partial 42 mmHg (38-42) 52 mmHg (38-42) 44 mmHg (38-42) Pressure CO2 Arterial Blood Partial 84 mmHG 131 mmHG 109 mmHg Pressure O2 (61-120) (61-120) (61-120) Arterial Blood Oxygen Content 19.1 Vol % 19.7 Vol % 16.8 Vol % (12.0-20.0) (12.0-20.0) (12.0-20.0) Arterial Blood 1.7 % (0-4) 1.2 % (0-4) 1.2 % (0-4) Carboxyhemoglobin Arterial Blood Methemoglobin 0.4 % (0-2) 0.6 % (0-2) 0.9 % (0-2) Blood Gas Hemoglobin 14.6 G/DL 14.3 G/DL 12.4 G/DL (12.0-16.0) (12.0-16.0) (12.0-16.0) Oxygen Delivery Device VENTILATOR VENTILATOR VENTILATOR Blood Gas Ventilator Setting AC12/500 5 PRVC/AC PRVC/AC PRVC/AC PEEP Blood Gas Inspired Oxygen 100 % 100 % 100 % 100 % Venous Blood pH 7.26 (7.360-7.400) Venous Blood Partial Pressure 61 mmHg (44-48) CO2 Venous Blood Partial Pressure 60 mmHg (35-40) O2 Venous Blood HCO3 26 mmol/L (22-26) Venous Blood Oxygen Saturation 86 % (70-76) Venous Blood Oxygen Content 17.3 Vol % (9.0-17.0) Venous Blood Base Excess -0.1 mmol/L (-2-2) Imaging I performed emergent bedside transthoracic critical care echocardiography which demonstrated grossly preserved biventricular function. No significant valvular lesions. No pericardial effusion. I did see a dissection flap in the descending thoracic aorta in parasternal long axis. I did not see any dissection flap in the ascending aorta in both parasternal long and parasternal short axis. I did not visualize any significant aortic regurgitation. Last 24 hours Impressions Aorta CTA 07/04/16 0000 Signed Impressions: Service Date/Time: June 19:53 - CONCLUSION: 1. Extensive aortic dissection extending from the proximal transverse aorta just distal to the origin of the left subclavian artery. Dissection extends distally through both superficial femoral arteries. 2. Occlusion of the right renal artery with absent perfusion of the right kidney. Dissection of the left renal artery with absent perfusion of the anterior left kidney. 3. 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 4. Occlusion of left external iliac artery and right internal iliac artery. 5. ET tube in satisfactory position. Dependent consolidation in both lungs. Probable mild liver cirrhosis. No obstruction or free fluid. Russell catheter in decompressed bladder. See above discussion. Rodriguez Jeff MD Objective Remarks GENERAL: Middle-aged male, lying in bed, intubated, sedated, critically ill HEENT: Normocephalic. Atraumatic. Pupils 2 mm, equal, round, reactive, conjugate. Mucous membranes are moist. NECK: He has midline. No JVD. Orotracheally intubated CHEST: Equal chest rise. Clear to auscultation. CARDIOVASCULAR: Bradycardic rate, regular rhythm. Appears narrow complex and junctional by telemetry. No appreciable murmurs. ABDOMEN: Soft, nontender, nondistended. No guarding. MUSCULOSKELETAL: Right radial pulse 2+, left radial pulses 1+, right DP pulse 1+ , left DP pulse absent. Left foot is noticeably cold, poikilothermy, pulseless , with poor capillary refill. Right foot is warm with modest Refill NEUROLOGICAL: RASS -5. Intubated, sedated. 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 He is now POD 1 s/p emergent TAVR, course complicated by perioperative NSTEMI secondary to demand ischemia (type II). He remains critically ill. His encephalopathy is almost certainly metabolic in nature from a combination of cirrhosis and his critical illness. Certainly he could have had a pre- operative CVA, although this is less likely, and our current management of intentional hypertension with lowering ICP would also be supportive of a CVA. For now we will pursue conservative supportive care and hold off on imaging studies for at least another 24h. Continue to trend lactates and troponins and maintain adequate spinal perfusion. I have updated the family and they are aware that he remains critically ill at this time. I have also discussed his care with Dr. Long, who agrees with the plan. Plan by systems: Neurologic: Acute encephalopathy Risk for spinal cord hypoperfusion Possible alcohol abuse Lumbar drain placement Propofol, fentanyl for goal RASS -2, currently on hold due to poor mental status. Spinal cord injury protection protocol per Dr. Long Watch for withdrawal symptoms Continue lumbar drain at 10 cm Narcan drip per protocol Respiratory: Acute hypoxic and hypercarbic respiratory failure Vent bundle Head of bed elevated. We will keep patient flat and in mild reverse Trendelenburg given recent endovascular procedure Does not meet SBT criteria today given his hemodynamic instability Wean FiO2 for goal SPO2 greater than 90% Nebs every 6 and every 2 when necessary Cardiovascular: Acute type B dissection s/p Emergent TAVR Type II NSTEMI- Demand Ischemia Junction bradycardia Goal map > 90 for spinal protection -- trend troponins. -- f/u 2d echo: prelim read, no regional wall motion abnormalities, no significant valvular lesions. -- trend CVP -- continue pulse contour analysis today. Renal: Acute kidney injury Likely secondary to hyperperfusion of the kidney -- Strict I/Os Russell placement Every hour urine outputs FEN/GI: Lactic Acidosis Acute protein calorie malnutrition- mild Intestinal hypoperfusion Non-anion gap metabolic acidosis will continue NPO for today given his slightly rising lactate. if it downtrends appropriately, will consider trickle TF. Per Dr. Long, his celiac/ SMA were widely patent after TAVR, so less likely to be gut ischemia, but risk/ benefit of feeding today with rising lactate is in favor of holding off. If his lactate trends down, we will start trickle feeds. ICU electrolyte protocol Daily BMP Trend lactates --continue sodium bicarb at 100cc/hr for non-gapped acidosis. likely combination of early RTA with hyperchloremia. Heme/ID: Leukocytosislikely reactive Daily CBC No infectious etiology suspected this time Perioperative antibiotics per surgeon Daily coags Endocrine: Hyperglycemia of critical illness -- SSI, medium scale, every 6 hours Prophylaxis: GI Prophylaxis Protonix 40 mg IV every 24 DVT Prophylaxis -- SCDs Avoid using Lovenox given the spinal drain. The patient may receive heparin subcutaneous every 12 or may remain on a heparin infusion if needed. Patient may additionally receive aspirin, but not Plavix. For now, place patient on SQH 5000 q12h. Lines: 07/04 right radial arterial line 07/04 Russell 07/04 lumbar drain Dispo: remain in the ICU. He remains very critically ill This patient remains critically ill with one or more organ systems which are or may become a threat to life. I have spent in excess of 77 minutes discontinuously in the care and management of this patient. This time is exclusive of procedures, and includes, but is not limited to, evaluation of the patient, review of the medical record, discussions with family, consultants, nursing staff, or respiratory therapy, and documentation in the medical record. Dennis Rich MD Jul 05, 2016 09:30
[2016-07-05 12:44] LABS: BLOOD GAS BASE EXCESS -3.6 mmol/L (-2-2); BLOOD GAS CARBOXYHEMOGLOBIN 0.9 % (0-4); BLOOD GAS HCO3 23 mmol/L (22-26); BLOOD GAS O2 HGB SATURATION 95 % (90-100); BLOOD GAS OXYGEN CONTENT 17.1 Vol % (12.0-20.0); BLOOD GAS PCO2 57 mmHg (38-42); BLOOD GAS PO2 95 mmHg (61-120); BLOOD GAS TOTAL HGB 12.8 G/DL (12.0-16.0); TEMP CORR TO 98.6
[2016-07-05 12:45] LABS: CRITICAL VALUE YES; DRAW SITE ART LINE; FIO2 80 %; OXYGEN DEVICE VENTILATOR; STAT YES; VENT SETTINGS PRVC/AC
[2016-07-05 13:14] LABS: CKMB 46.9 NG/ML (0.5-3.6)
[2016-07-05 17:00] LABS: BLOOD GAS BASE EXCESS 0.3 mmol/L (-2-2); BLOOD GAS HCO3 25 mmol/L (22-26); BLOOD GAS METHEMOGLOBIN 0.9 % (0-2); BLOOD GAS O2 HGB SATURATION 98 % (90-100); BLOOD GAS PCO2 46 mmHg (38-42); BLOOD GAS PO2 182 mmHg (61-120); BLOOD GAS TOTAL HGB 12.1 G/DL (12.0-16.0); CRITICAL VALUE NO; DRAW SITE ART LINE; FIO2 70 %; OXYGEN DEVICE VENTILATOR; STAT NO; TEMP CORR TO 98.6
[2016-07-05] MEDS: fentaNYL 2,500 MCG/NS 250 ML IV SCH (17:09)
[2016-07-05] MEDS ORDERED: NOREPINEPHRINE-DEXTROSE DRIP 250 ML IV ONE (17:58)
--- NOTE | 2016-07-05 19:03 | EC ---
Study Study Date:07/05/2016 STUDY CONCLUSIONS SUMMARY - Left ventricle: The cavity size was mildly dilated. Wall thickness was increased in a pattern of mild LVH. Systolic function was normal. The estimated ejection fraction was 55%. Wall motion was normal; there were no regional wall motion abnormalities. - Aortic valve: Valve area: 2.29cm^2 (Vmax). - Mitral valve: Mild regurgitation. - Tricuspid valve: Mild regurgitation. If LV function is below 40, please consider prescribing an ACEI or ARB or document rationale for non-use. PROCEDURE DATA STUDY STATUS: Elective. Procedure: Transthoracic echocardiography. Image quality was good. Scanning was performed from the parasternal, apical, and subcostal acoustic windows. Study completion: The patient tolerated the procedure well. Transthoracic echocardiography. M-mode, complete 2D, complete spectral Doppler, and color Doppler. Weight: Weight: 196.6lb. Patient status: Inpatient. CARDIAC ANATOMY LEFT VENTRICLE: The cavity size was mildly dilated. Wall thickness was increased in a pattern of mild LVH. Systolic function was normal. The estimated ejection fraction was 55%. Wall motion was normal; there were no regional wall motion abnormalities. AORTIC VALVE: Trileaflet; normal thickness leaflets. Doppler: Transvalvular velocity was within the normal range. There was no stenosis. No regurgitation. Valve area: 2.29cm^2 (Vmax). Peak gradient: 18mm Hg (S). AORTA: Aortic root: The aortic root was normal in size. MITRAL VALVE: Structurally normal valve. Doppler: Transvalvular velocity was within the normal range. There was no evidence for stenosis. Mild regurgitation. Peak gradient: 7mm Hg (D). LEFT ATRIUM: The atrium was normal in size. RIGHT VENTRICLE: The cavity size was normal. Wall thickness was normal. PULMONIC VALVE: Doppler: Transvalvular velocity was within the normal range. There was no evidence for stenosis. No regurgitation. TRICUSPID VALVE: Structurally normal valve. Doppler: Transvalvular velocity was within the normal range. Mild regurgitation. PULMONARY ARTERY: The main pulmonary artery was normal-sized. Systolic pressure was within the normal range. RIGHT ATRIUM: The atrium was normal in size. PERICARDIUM: There was no pericardial effusion. SYSTEMIC VEINS: Inferior vena cava: The vessel was normal in size. Patient weight: 196.6lb _Ejection fraction:_ 65-75% _Fractional shortening:_ 32% up to 5Kg 5-11.5Kg 11.6-22.9Kg 23-45Kg 45-57Kg Aortic Root 7-13 <17 13-22 17-27 17-27 LA diam 6-13 <23 24-38 33-47 37-40 RVID 10-17 7-15 7-15 7-18 8-17 LVIDd 12-22 <32 24-38 33-47 37-40 LVPW 2-4 3-6 5-7 6-8 7-8 IVS 2-4 3-6 5-7 6-8 7-8 BASIC MEASUREMENTS ADULT NORMAL Left ventricle LV internal dimension, ED, chordal level, *53.8 mm 43-52 PLAX LV internal dimension, ES, chordal level, *41.9 mm 23-38 PLAX Fractional shortening, chordal level, PLAX *22 % >29 LV posterior wall thickness, ED 12.8 mm IVS/LVPW ratio, ED 1.03 <1.3 Ventricular septum Septal thickness, ED 13.2 mm Aortic valve Leaflet separation 22 mm 15-26 Left atrium Anterior-posterior dimension 40 mm Right ventricle RV internal dimension, ED, PLAX 21.6 mm 19-38 BASIC MEASUREMENTS ADULT NORMAL Aortic valve Leaflet separation 22 mm 15-26 Aorta Root diameter, ED 32 mm 20-37 DOPPLER MEASUREMENTS ADULT NORMAL Main pulmonary artery Pressure, S 14 mm Hg =30 Aortic valve Peak velocity, S 214 cm/s Peak gradient, S 18 mm Hg Valve area, Vmax 2.29 cm^2 Mitral valve Peak E-wave velocity 133 cm/s Peak A-wave velocity 58 cm/s Deceleration time 208 ms 150-230 Peak gradient, D 7 mm Hg Peak E/A ratio 2.3 Maximal regurgitant velocity 362 cm/s Tricuspid valve Regurgitant peak velocity 160 cm/s Peak RV-RA gradient, S 10 mm Hg Maximal regurgitant velocity 160 cm/s Systemic veins Estimated CVP 10 mm Hg Right ventricle RV pressure, S 20 mm Hg <30 Pulmonic valve Peak velocity, S 126 cm/s LEGEND: Mean values are shown as u=mean value. Asterisk (*) trujillo values outside specified normal range. Prepared and signed by Nomi Mondragon [id number]
[2016-07-05 19:15] LABS: BICARBONATE 29.7 MEQ/L (21.0-32.0); POTASSIUM 3.6 MEQ/L (3.5-5.1)
[2016-07-05 19:42] LABS: CALCIUM-PROTEIN CORRECTED 7.9 MG/DL (8.5-10.1); CKMB 48.7 NG/ML (0.5-3.6)
[2016-07-05] MEDS: HEPARIN SODIUM - SQ 10,000 UNITS/ML VIAL SQ SCH (20:17)
[2016-07-05] MEDS: PROPOFOL 1000 MG/100 ML IV SCH (23:29)
[2016-07-05] MEDS: MIDAZOLAM HCL 2 MG/2 ML VIAL IV PUSH PRN (23:49)
[2016-07-06] VITALS (19 sets, daily range): BP systolic 126–182; BP diastolic 50–70; PULSE 67–99; RESP 16–23; TEMP 96–98.1; O2SAT 94–100
[2016-07-06] MEDS ORDERED: SODIUM CHLOR 0.9% 1000 ML INJ 1,000 ML IV ONE (01:00)
[2016-07-06] MEDS: THIAMINE INJ 100 MG in SODIUM CHLORIDE 0.9% INJ 100 ML IV SCH (01:11)
[2016-07-06] MEDS: MIDAZOLAM HCL 2 MG/2 ML VIAL IV PUSH PRN ×4 (01:12→12:07)
[2016-07-06] MEDS: NOREPINEPHRINE 4 MG/D5W 250 ML IV SCH ×3 (01:35→20:17)
[2016-07-06] MEDS ORDERED: SODIUM CHLOR 0.9% 1000 ML INJ 999 ML IV ONE ×2 (04:00→22:00)
[2016-07-06] MEDS: CHLORHEXIDINE GLUCONATE 2 % 1 PACK (2 CLOTHS) TOP SCH (04:00)
[2016-07-06] MEDS: RESP: ALBUTEROL 2.5 MG/IPRATROPIUM 0.5 MG NEB (SCH) INH ×4 (04:43→19:38)
[2016-07-06 05:21] LABS: HEMATOCRIT 30.5 % (39.0-51.0); MEAN CELL VOLUME 92.5 FL (80.0-100.0); MEAN CORPUSCULAR HEMOGLOBIN 31.1 PG (27.0-34.0); MEAN CORPUSCULAR HGB CONC 33.7 % (32.0-36.0); PLATELET COUNT 106 TH/MM3 (150-450); RED CELL DISTRIBUTION WIDTH 13.5 % (11.6-17.2); REVIEW FLAG FINAL; WHITE BLOOD COUNT 22.5 TH/MM3 (4.0-11.0)
[2016-07-06 05:49] LABS: BICARBONATE 27.3 MEQ/L (21.0-32.0); INDIRECT BILIRUBIN 0.5 MG/DL (0.0-0.8); POTASSIUM 3.9 MEQ/L (3.5-5.1); TOTAL BILIRUBIN ADULT 1.5 MG/DL (0.2-1.0)
[2016-07-06] MEDS: INSULIN NovoLIN REGULAR SUPPLEMENTAL SCALE SQ SCH ×4 (06:00→20:16)
[2016-07-06] MEDS ORDERED: CALCIUM GLUCONATE INJ 3 GM in SODIUM CHLORIDE 0.9% INJ 100 ML IV ONE (06:15)
--- NOTE | 2016-07-06 06:59 | RADRPT ---
EXAM DATE/TIME: 07/06/2016 06:22 [facility] COMPARISON: CHEST SINGLE AP, July 05, 2016, 0:09. INDICATIONS : Follow up respiratory status. MEDICAL HISTORY : None. SURGICAL HISTORY : None. ENCOUNTER: Subsequent ACUITY: 2 days PAIN SCORE: Non-responsive. LOCATION: Bilateral chest FINDINGS: 2 portable frontal views of the chest show the lungs to be clear. Heart is mildly enlarged but stable . No effusions. Tip of the endotracheal tube 2 cm cephalad to the jessica. Tip of the nasogastric tube courses off the inferior margin of the film. Right-sided central line and aortic stent graft noted. CONCLUSION: Clear lungs. Cardiomegaly. Joe Appiah Jr., MD on July 06, 2016 at 6:56 Board Certified Radiologist. This report was verified electronically.
[2016-07-06] MEDS: fentaNYL 2,500 MCG/NS 250 ML IV SCH (07:01)
[2016-07-06] MEDS: SODIUM CHLORIDE 0.9% FLUSH 10 ML FLUSH IV FLUSH SCH ×2 (07:18→19:33)
--- NOTE | 2016-07-06 07:50 | HHI.CCPN ---
Subjective Remarks/Hospital Course Hospital Course: This is a 60-year-old male who is transferred emergently from outside hospital with per report and acute type B dissection. Apparently the patient told his family member today that he had searing back pain and was taken to the emergency department. A CT of the chest at that time showed a type B dissection. The patient was intubated the outside facility and transferred to [place] for emergent evaluation management. Unfortunately, the patient is unable to provide any additional history at this time. I was at bedside and the patient arrived to the surgical intensive care unit. Dr. Long and I both evaluated the patient and when he arrived he was in a junctional bradycardia with heart rate in the 40s. He had obvious ST depressions in lead II on telemetry. Our initial concern was that we have extended the dissection into the type A dissection. We also did not have any CT of the abdomen and pelvis. On her physical exam, the patient had a cold left foot without pulses. I emergently placed a right radial arterial line, please see separate procedure note for details. We then went emergently to the CT scanner for repeat CT aortogram of the chest abdomen and pelvis to investigate the extent to which the dissection has extended. The CT aortogram demonstrated that this was still a type B dissection with the celiac artery being significantly compressed and possibly comprising flow from the dissection flap. The right kidney appears to be perfused off the false lumen and not the true lumen, and there is no contrast going down the left femoral artery. Patient was then brought back to the intensive care unit. His blood pressure is controlled on nicardipine infusion for goal systolic blood pressure less than 110. A 12-lead EKG at that time was done which demonstrated significant ST depressions in the inferior leads as well as the far lateral leads consistent with subendocardial ischemia. At the request of Dr. Long in anticipation of going emergently to the operative theater, I placed a lumbar drain for spinal protection, please see separate procedure note for details. At that point the patient was taken emergently to the operating room. Critical care medicine is been consulted to evaluate and manage the patient's type B dissection, hemodynamic's, acute hypoxic respiratory failure. Subjective: 07/05: taken to OR for TEVAR overnight. lactate cleared overnight. uop adequate. Cr elevated to 1.8 this AM. 07/06: oliguric overnight. Cr rising. however, lactate cleared. other markers of end-organ perfusion better. likely ATN from time of dissection. awake following commands. moving bilateral lower extremities. clear CSF in lumbar drain. on intermittent norepinephrine to maintain spinal perfusion. Objective Vital Signs Date Time Temp Pulse Resp B/P Pulse Ox O2 Delivery O2 Flow Rate FiO2 07/06/16 07:16 98 40 07/06/16 07:00 Mechanical Ventilator 07/06/16 06:00 154/54 07/06/16 06:00 86 07/06/16 04:00 97.0 18 Intake and Output 07/05/16 07/05/16 07/06/16 08:00 16:00 00:00 Intake Total 1785 ml 1550 ml 1084 ml Output Total 1064 ml 859 ml 266 ml Balance 721 ml 691 ml 818 ml Result Diagram: 07/06/16 0510 07/06/16 0510 Other Results Laboratory Tests Test 07/05/16 07/05/16 12:37 16:50 Blood Gas Puncture Site ART LINE ART LINE Blood Gas Patient Temperature 98.6 98.6 Blood Gas HCO3 23 mmol/L 25 mmol/L (22-26) (22-26) Blood Gas Base Excess -3.6 mmol/L 0.3 mmol/L (-2-2) (-2-2) Blood Gas Oxygen Saturation 95 % (90-100) 98 % (90-100) Arterial Blood pH 7.23 7.36 (7.380-7.420) (7.380-7.420) Arterial Blood Partial 57 mmHg (38-42) 46 mmHg (38-42) Pressure CO2 Arterial Blood Partial 95 mmHg 182 mmHg Pressure O2 (61-120) (61-120) Arterial Blood Oxygen Content 17.1 Vol % 17.0 Vol % (12.0-20.0) (12.0-20.0) Arterial Blood 0.9 % (0-4) 1.0 % (0-4) Carboxyhemoglobin Arterial Blood Methemoglobin 1.0 % (0-2) 0.9 % (0-2) Blood Gas Hemoglobin 12.8 G/DL 12.1 G/DL (12.0-16.0) (12.0-16.0) Oxygen Delivery Device VENTILATOR VENTILATOR Blood Gas Ventilator Setting PRV/AC Blood Gas Inspired Oxygen 80 % 70 % Imaging I performed emergent bedside transthoracic critical care echocardiography which demonstrated grossly preserved biventricular function. No significant valvular lesions. No pericardial effusion. I did see a dissection flap in the descending thoracic aorta in parasternal long axis. I did not see any dissection flap in the ascending aorta in both parasternal long and parasternal short axis. I did not visualize any significant aortic regurgitation. Last 24 hours Impressions Aorta CTA 07/04/16 0000 Signed Impressions: Service Date/Time: June 19:53 - CONCLUSION: 1. Extensive aortic dissection extending from the proximal transverse aorta just distal to the origin of the left subclavian artery. Dissection extends distally through both superficial femoral arteries. 2. Occlusion of the right renal artery with absent perfusion of the right kidney. Dissection of the left renal artery with absent perfusion of the anterior left kidney. 3. 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 4. Occlusion of left external iliac artery and right internal iliac artery. 5. ET tube in satisfactory position. Dependent consolidation in both lungs. Probable mild liver cirrhosis. No obstruction or free fluid. Russell catheter in decompressed bladder. See above discussion. Rodriguez Jeff MD Objective Remarks GENERAL: Middle-aged male, lying in bed, intubated, sedated, critically ill HEENT: Normocephalic. Atraumatic. Pupils 2 mm, equal, round, reactive, conjugate. Mucous membranes are moist. NECK: trachea is midline. No JVD. Orotracheally intubated CHEST: Equal chest rise. Clear to auscultation. PRVC CARDIOVASCULAR: normal rate, regular rhythm. no appreciable murmurs. ABDOMEN: Soft, nontender, nondistended. No guarding. MUSCULOSKELETAL: distal pulses 2+. moves bilateral lower extremities to command. NEUROLOGICAL: RASS -2. follows commands x 4. A/P Assessment and Plan Assessment: 60yM with acute type B dissection s/p emergent TEVAR. He is clinically slowly starting to improve. His type II NSTEMI persists. We will continue to trend troponins. continue spinal cord protection today with lumbar drain and intentional hypertension. Lactate has cleared. Oliguric renal failure persists. Hopefully we can avoid renal replacement therapy. remains critically ill in multiorgan dysfunction. I have discussed his care with Dr. Long today and we have jointly made a plan. Plan by systems: Neurologic: Acute encephalopathy- improving. Risk for spinal cord hypoperfusion Possible alcohol abuse Lumbar drain placement Propofol, fentanyl for goal RASS -2 Spinal cord injury protection protocol per Dr. Long Watch for withdrawal symptoms Continue lumbar drain at 10 cm for another 24h. Narcan drip per protocol, will conclude today at 48h. Respiratory: Acute hypoxic and hypercarbic respiratory failure Vent bundle Head of bed elevated. Does not meet SBT criteria today given his ongoing hemodynamic instability requiring vasopressors. Wean FiO2 for goal SPO2 greater than 90% Nebs every 6 and every 2 when necessary Cardiovascular: Acute type B dissection s/p Emergent TEVAR Type II NSTEMI- Demand Ischemia Junction bradycardia- resolved. Goal map > 90 for spinal protection -- continue to trend troponins. -- elevated troponins likely combination of demand ischemia and poor renal clearance -- will consult cardiology for further evaluation and recommendations. -- 2d echo: EF 55%, no RWMA. -- trend CVP -- continue pulse contour analysis today. Renal: Acute kidney injury Likely secondary to hyperperfusion of the kidney from dissection -- Strict I/Os Russell placement Every hour urine outputs --clinically intravascularly euvolemic. FEN/GI: Lactic Acidosis- resolving. Acute protein calorie malnutrition- mild Non-anion gap metabolic acidosis- resolved. start TF today. ICU electrolyte protocol Daily BMP --d/c sodium bicarb infusion as non-gapped acidosis has resolved. Heme/ID: Leukocytosislikely reactive Acute Blood Loss Anemia Daily CBC No infectious etiology suspected this time Daily coags --does not meet transfusion trigger at this time. Endocrine: Hyperglycemia of critical illness -- SSI, medium scale, every 6 hours Prophylaxis: GI Prophylaxis Protonix 40 mg IV every 24 DVT Prophylaxis -- SCDs Avoid using Lovenox given the spinal drain. The patient may receive heparin subcutaneous every 12 or may remain on a heparin infusion if needed. Patient may additionally receive aspirin, but not Plavix. -- for now, SQH q12h. Lines: 07/04 right radial arterial line 07/04 Russell 07/04 lumbar drain Dispo: remain in the ICU. He remains very critically ill This patient remains critically ill with one or more organ systems which are or may become a threat to life. I have spent in excess of 80 minutes discontinuously in the care and management of this patient. This time is exclusive of procedures, and includes, but is not limited to, evaluation of the patient, review of the medical record, discussions with family, consultants, nursing staff, or respiratory therapy, and documentation in the medical record. Dennis Rich MD Jul 06, 2016 07:50 07/04 lumbar drain Dispo: remain in the ICU. He remains very critically ill This patient remains critically ill with one or more organ systems which are or may become a threat to life. I have spent in excess of 77 minutes discontinuously in the care and management of this patient. This time is exclusive of procedures, and includes, but is not limited to, evaluation of the patient, review of the medical record, discussions with family, consultants, nursing staff, or respiratory therapy, and documentation in the medical record. Dennis Rich MD Jul 06, 2016 07:50
[2016-07-06] MEDS: DOCUSATE SODIUM 50 MG/SENNA 8.6 MG TAB PO SCH ×3 (08:32→20:18)
[2016-07-06] MEDS: MULTIVITAMIN TAB PO SCH (08:32)
[2016-07-06] MEDS: PANTOPRAZOLE SODIUM 40 MG VIAL IV SCH (08:32)
[2016-07-06] MEDS: CHLORHEXIDINE 0.12% (ORAL KIT) 15 ML CUP MT SCH ×2 (08:32→19:33)
[2016-07-06] MEDS: PROPOFOL 1000 MG/100 ML IV SCH (08:32)
[2016-07-06] MEDS: HEPARIN SODIUM - SQ 10,000 UNITS/ML VIAL SQ SCH ×2 (08:33→19:32)
[2016-07-06 08:45] LABS: CALCIUM-PROTEIN CORRECTED 7.4 MG/DL (8.5-10.1)
--- NOTE | 2016-07-06 11:12 | EKG ---
Date Performed: 07/04/2016 Time Performed: 19:05:04 PTAGE: 60 years EKG: Possible idioventricular rhythm with slow ventricular response. Left axis deviation Abnorma l ECG NO PREVIOUS TRACING DOCTOR: Wallace Jennings Interpretating Date/Time 07/06/2016 11:08:38
[2016-07-06 12:22] LABS: HEMATOCRIT 28.5 % (39.0-51.0); REVIEW FLAG FINAL
[2016-07-06] MEDS ORDERED: NITROGLYCERIN 0.4 MG SL 25 TABS/BTL SL ONE (13:43)
[2016-07-06] MEDS ORDERED: NITROGLYCERIN 0.3 MG SL 100 TABS/BTL SL ONE (14:00)
[2016-07-06] MEDS: HALOPERIDOL LACTATE 5 MG/ML AMP IV PRN (14:04)
[2016-07-06] MEDS: LORazepam 2 MG/ML VIAL IV PUSH PRN (14:05)
[2016-07-06] MEDS: METOPROLOL TARTRATE 5 MG/5 ML VIAL IV PUSH PRN ×2 (14:05→16:02)
[2016-07-06] MEDS ORDERED: ZIPRASIDONE MESYLATE 20 MG VIAL IM ONE (15:00)
[2016-07-06] MEDS: MELATONIN 5 MG TAB PO SCH ×2 (19:32→20:18)
--- NOTE | 2016-07-06 21:58 | PD.VS.PN ---
Subjective POD #: 2 Procedure(s): TEVAR, L LE fasciotomies for acute TBAD with visceral/renal/LLE malperfusion Subjective/Hospital Course Extabuted, reportedly was following commands but not somnolent, but MENSAH when aroused Objective Neuro: MENSAH; no focal deficits. Spinal drain in place. Anticipate clamping drain in next day or two (POD#3) Pulmonary: Rhonchorous after extubation Tenuous and may require intubation but looks decent at present; continue checking ABG Cardiac: CVV slightly high HR ok and troponins appear to have peaked Goal SBP around 140 for SCI protection FEN/GI: ok to have trickle TF given normalization of lactate : hematuria and UOP down to 10-20; likely profound ATN (3 contrast loads and now only has LEFT kidney perfused) ID Antibiotics(date/duration): none ID Cultures: none Heme: Hct 28.5 from 30 Drains: spinal drain Laboratory Laboratory Tests Test 07/06/16 07/06/16 07/06/16 07/06/16 00:16 05:10 07:50 12:00 Lactic Acid Level 1.3 White Blood Count 22.5 Red Blood Count 3.30 Hemoglobin 10.3 9.8 Hematocrit 30.5 28.5 Mean Corpuscular Volume 92.5 Mean Corpuscular Hemoglobin 31.1 Mean Corpuscular Hemoglobin 33.7 Concent Red Cell Distribution Width 13.5 Platelet Count 106 Mean Platelet Volume 10.2 Sodium Level 138 Potassium Level 3.9 Chloride Level 101 Carbon Dioxide Level 27.3 Anion Gap 10 Blood Urea Nitrogen 33 Creatinine 2.72 Estimat Glomerular Filtration 24 Rate Random Glucose 161 Calcium Level 6.6 Protein Corrected Calcium 7.4 Total Bilirubin 1.5 Direct Bilirubin 1.0 Indirect Bilirubin 0.5 Aspartate Amino Transf 368 (AST/SGOT) Alanine Aminotransferase 153 (ALT/SGPT) Alkaline Phosphatase 54 Total Protein 5.4 Albumin 2.2 Troponin I 13.10 12.60 Test 07/06/16 18:00 Phosphorus Level 5.7 Troponin I 9.13 Imaging Last 48 hours Impressions Chest X-Ray 07/06/16 0000 Signed Impressions: Service Date/Time: Wednesday, July 06, 2016 06:22 - CONCLUSION: Clear lungs. Cardiomegaly. Joe Appiah Jr., MD Chest X-Ray 07/05/16 0000 Signed Impressions: Service Date/Time: Tuesday, July 05, 2016 00:09 - CONCLUSION: 1. Descending thoracic endograft. 2. Mild cardiomegaly. 3. Right lung infiltrate. Joe Appiah Jr., MD Assessment and Plan Plan POD#1 s/p TEVAR and L LE fasciotomy Overall he looks great - main issues are mental status, respiratory, renal, and continued prevention of SCI 1. Neuro: likely acute illness and potential EtOH withdrawal; clamp drain tomorrow (POD#3). Volume resuscitation and pressors for maximization of spinal cord perfusion 2. Resp: follow ABG; may require re-intubation 3. CV: Goal SBP 140 for SCI protection; continue to trend troponins 4. FEN/GI: TF ok (Nepro); LA 1. Monitor e'lytes; fluid resuscitate on SVV. 5. : ATN; will avoid nephrotoxic meds, exogenous K. If creatinine continues to increase, will get renal duplex on FRIDAY 6. ID: no issues 7. Heme: Hct stable (30 to 28.5) 8. endocrine: SSI as per ICU team 9. continue pulse checks - perfusion to LLE restored with TEVAR 10. Change L LE fasciotomy dressing as required; may need topical hemostatic agent to help with venous oozing I spoke with NOK (brother) who said previously that patient was DNR. For now, he is FULL CODE and continued management after aTBAD with malperfusion. We can revisit goals of care daily. Hamlet Long commissary manager [facility] - [facility] at [facility] [phone] Hamlet Long MD Jul 06, 2016 21:58
[2016-07-06] MEDS ORDERED: PROPOFOL 1000 MG/100 ML INJ 100 ML ONE (22:32)
[2016-07-06] MEDS ORDERED: ETOMIDATE 20 MG/10 ML VIAL ONE (22:33)
[2016-07-06] MEDS ORDERED: ETOMIDATE 20 MG/10 ML VIAL IV PUSH ONE (22:45)
[2016-07-06] MEDS: PROPOFOL 1000 MG/100 ML INJ 100 ML IV SCH (22:55)
[2016-07-07] VITALS (19 sets, daily range): BP systolic 135–180; BP diastolic 51–85; PULSE 53–82; RESP 18; TEMP 96.5–97.4; O2SAT 95–100
[2016-07-07] LABS: BLOOD GAS BASE EXCESS -1.2 mmol/L (-2-2); BLOOD GAS CARBOXYHEMOGLOBIN 1.1 % (0-4); BLOOD GAS HCO3 23 mmol/L (22-26); BLOOD GAS METHEMOGLOBIN 0.8 % (0-2); BLOOD GAS O2 HGB SATURATION 98 % (90-100); BLOOD GAS OXYGEN CONTENT 12.8 Vol % (12.0-20.0); BLOOD GAS PCO2 39 mmHg (38-42); BLOOD GAS PO2 255 mmHg (61-120); BLOOD GAS TOTAL HGB 8.8 G/DL (12.0-16.0); CRITICAL VALUE NO; OXYGEN DEVICE VENTILATOR; TEMP CORR TO 98.6
[2016-07-07 00:01] LABS: DRAW SITE ALINE; FIO2 100 %; STAT NO
[2016-07-07] MEDS: CHLORHEXIDINE GLUCONATE 2 % 1 PACK (2 CLOTHS) TOP SCH (03:11)
[2016-07-07] MEDS: RESP: ALBUTEROL 2.5 MG/IPRATROPIUM 0.5 MG NEB (SCH) INH ×4 (03:49→19:44)
[2016-07-07] MEDS: NOREPINEPHRINE 4 MG/D5W 250 ML IV SCH ×2 (04:14→20:28)
[2016-07-07] MEDS: PROPOFOL 1000 MG/100 ML INJ 100 ML IV SCH ×2 (04:14→20:28)
[2016-07-07 05:06] LABS: MAGNESIUM 2.3 MG/DL (1.5-2.5)
[2016-07-07 05:07] LABS: APTT (PATIENT) 33.4 SEC (24.3-30.1); HEMATOCRIT 26.5 % (39.0-51.0); INTERNATIONAL NORMALIZED RATIO 1.2 RATIO; MEAN CELL VOLUME 91.8 FL (80.0-100.0); MEAN CORPUSCULAR HEMOGLOBIN 32.1 PG (27.0-34.0); MEAN CORPUSCULAR HGB CONC 34.9 % (32.0-36.0); PLATELET COUNT 96 TH/MM3 (150-450); PROTHROMBIN TIME - PATIENT 13.4 SEC (9.8-11.6); RED BLOOD COUNT 2.89 MIL/MM3 (4.50-5.90); RED CELL DISTRIBUTION WIDTH 13.8 % (11.6-17.2); WHITE BLOOD COUNT 18.2 TH/MM3 (4.0-11.0)
[2016-07-07 05:10] LABS: INDIRECT BILIRUBIN 0.5 MG/DL (0.0-0.8); TOTAL BILIRUBIN ADULT 1.5 MG/DL (0.2-1.0)
[2016-07-07 05:14] LABS: BICARBONATE 25.4 MEQ/L (21.0-32.0); REVIEW FLAG FINAL
[2016-07-07] MEDS: INSULIN NovoLIN REGULAR SUPPLEMENTAL SCALE SQ SCH ×4 (05:21→23:52)
[2016-07-07 05:27] LABS: CALCIUM-PROTEIN CORRECTED 8.1 MG/DL (8.5-10.1)
--- NOTE | 2016-07-07 06:12 | RADRPT ---
EXAM DATE/TIME: 07/07/2016 04:38 [place] COMPARISON: CHEST SINGLE AP, July 06, 2016, 6:22. INDICATIONS : Shortness of breath, possible pulmonary disease. MEDICAL HISTORY : None. SURGICAL HISTORY : None. ENCOUNTER: Subsequent ACUITY: 3 days PAIN SCORE: Non-responsive. LOCATION: Bilateral chest FINDINGS: A single portable frontal view of the chest shows the tip of the endotracheal tube 3 cm proximal to c gerard. Nasogastric tube has been removed. Right-sided central line remains. Aortic stent graft noted. New bibasilar opacities. Lung bases are partially omitted from the film. No effusions. Heart remains enlarged. CONCLUSION: 1. New bibasilar infiltrates. Joe Appiah Jr., MD on July 07, 2016 at 6:09 Board Certified Radiologist. This report was verified electronically.
--- NOTE | 2016-07-07 06:56 | HHI.CCPN ---
Subjective Remarks/Hospital Course Hospital Course: This is a 60-year-old male who is transferred emergently from outside hospital with per report and acute type B dissection. Apparently the patient told his family member today that he had searing back pain and was taken to the emergency department. A CT of the chest at that time showed a type B dissection. The patient was intubated the outside facility and transferred to [facility] for emergent evaluation management. Unfortunately, the patient is unable to provide any additional history at this time. I was at bedside and the patient arrived to the surgical intensive care unit. Dr. Long and I both evaluated the patient and when he arrived he was in a junctional bradycardia with heart rate in the 40s. He had obvious ST depressions in lead II on telemetry. Our initial concern was that we have extended the dissection into the type A dissection. We also did not have any CT of the abdomen and pelvis. On her physical exam, the patient had a cold left foot without pulses. I emergently placed a right radial arterial line, please see separate procedure note for details. We then went emergently to the CT scanner for repeat CT aortogram of the chest abdomen and pelvis to investigate the extent to which the dissection has extended. The CT aortogram demonstrated that this was still a type B dissection with the celiac artery being significantly compressed and possibly comprising flow from the dissection flap. The right kidney appears to be perfused off the false lumen and not the true lumen, and there is no contrast going down the left femoral artery. Patient was then brought back to the intensive care unit. His blood pressure is controlled on nicardipine infusion for goal systolic blood pressure less than 110. A 12-lead EKG at that time was done which demonstrated significant ST depressions in the inferior leads as well as the far lateral leads consistent with subendocardial ischemia. At the request of Dr. Long in anticipation of going emergently to the operative theater, I placed a lumbar drain for spinal protection, please see separate procedure note for details. At that point the patient was taken emergently to the operating room. Critical care medicine is been consulted to evaluate and manage the patient's type B dissection, hemodynamic's, acute hypoxic respiratory failure. Subjective: 07/05: taken to OR for TEVAR overnight. lactate cleared overnight. uop adequate. Cr elevated to 1.8 this AM. 07/06: oliguric overnight. Cr rising. however, lactate cleared. other markers of end-organ perfusion better. likely ATN from time of dissection. awake following commands. moving bilateral lower extremities. clear CSF in lumbar drain. on intermittent norepinephrine to maintain spinal perfusion. 07/07: extubated yesterday, followed commands, good pulmonary mechanics. However , after extubation, became acutely delirious- probable combination of etoh withdraw and icu delirium, some pain. mental status waxed and waned throughout the day and ultimately reintubated overnight for worsening waning mental status and hypoxia. post-extubation it has been documented that he continues to move his bilateral lower extremities to painful stimuli and spontaneously. does not follow commands this morning. troponins downtrending. cardiology evaluated the patient yesterday, formal note pending, but per my conversation, plan was for ongoing conservative management as we are doing, and plan for nuc med stress test when stable. Objective Vital Signs Date Time Temp Pulse Resp B/P Pulse Ox O2 Delivery O2 Flow Rate FiO2 07/07/16 06:00 70 07/07/16 06:00 147/54 07/07/16 04:00 96.5 18 95 07/07/16 04:00 50 07/06/16 19:44 Non-Rebreather 07/06/16 19:00 4.00 Intake and Output 07/06/16 07/06/16 07/07/16 08:00 16:00 00:00 Intake Total 1084 ml 838 ml 1139 ml Output Total 432 ml 1261 ml 306 ml Balance 652 ml -423 ml 833 ml Result Diagram: 07/07/16 0425 07/07/16 0425 Other Results Laboratory Tests Test 07/06/16 23:48 Blood Gas Puncture Site APOLONIA Blood Gas Patient Temperature 98.6 Blood Gas HCO3 23 mmol/L (22-26) Blood Gas Base Excess -1.2 mmol/L (-2-2) Blood Gas Oxygen Saturation 98 % (90-100) Arterial Blood pH 7.39 (7.380-7.420) Arterial Blood Partial 39 mmHg (38-42) Pressure CO2 Arterial Blood Partial 255 mmHg Pressure O2 (61-120) Arterial Blood Oxygen Content 12.8 Vol % (12.0-20.0) Arterial Blood 1.1 % (0-4) Carboxyhemoglobin Arterial Blood Methemoglobin 0.8 % (0-2) Blood Gas Hemoglobin 8.8 G/DL (12.0-16.0) Oxygen Delivery Device VENTILATOR Blood Gas Ventilator Setting SEE COMMENT Blood Gas Inspired Oxygen 100 % Imaging I performed emergent bedside transthoracic critical care echocardiography which demonstrated grossly preserved biventricular function. No significant valvular lesions. No pericardial effusion. I did see a dissection flap in the descending thoracic aorta in parasternal long axis. I did not see any dissection flap in the ascending aorta in both parasternal long and parasternal short axis. I did not visualize any significant aortic regurgitation. Last 24 hours Impressions Aorta CTA 07/04/16 0000 Signed Impressions: Service Date/Time: June 19:53 - CONCLUSION: 1. Extensive aortic dissection extending from the proximal transverse aorta just distal to the origin of the left subclavian artery. Dissection extends distally through both superficial femoral arteries. 2. Occlusion of the right renal artery with absent perfusion of the right kidney. Dissection of the left renal artery with absent perfusion of the anterior left kidney. 3. 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 4. Occlusion of left external iliac artery and right internal iliac artery. 5. ET tube in satisfactory position. Dependent consolidation in both lungs. Probable mild liver cirrhosis. No obstruction or free fluid. Russell catheter in decompressed bladder. See above discussion. Rodriguez Jeff MD Objective Remarks GENERAL: Middle-aged male, lying in bed, intubated, sedated, critically ill HEENT: Normocephalic. Atraumatic. Pupils 2 mm, equal, round, reactive, conjugate. Mucous membranes are moist. NECK: trachea is midline. No JVD. Orotracheally intubated CHEST: Equal chest rise. Clear to auscultation. PRVC CARDIOVASCULAR: normal rate, regular rhythm. no appreciable murmurs. ABDOMEN: Soft, nontender, nondistended. No guarding. MUSCULOSKELETAL: distal pulses 2+. NEUROLOGICAL: RASS -3. withdraws in b/l LEs. A/P Assessment and Plan Assessment: 60yM with acute type B dissection s/p emergent TEVAR. Course complicated by type II NSTEMI with demand ischemia, acute agitated delirium and hypoxic respiratory failure requiring re-intubation, acute oligoanuric renal failure. He remains critically ill. we will aggressively work towards treating his delirium as it is a major factor in his reintubation and pulmonary decline. From a neuro standpoint, as long as we have reliable withdraw in the bilateral LEs, I think it is safe to clamp the lumbar drain today. Will continue to closely monitor renal function and uop, though again all clinical signs point to intravascular euvolemia and I think his oliguria is residual ATN from time of insult. I will also have additional discussions with the family: yesterday they felt confident the patient would not want to be reintubated due to the fact that he did not like his life as he was living it, and his arthritis was getting too bad to be ambulatory. yesterday I had a discussion about how temporary reintubation for agitation/delirium was a treatable condition and his overall clinical course was improving. I still believe that the patient has a chance for full recovery, and with inpatient rehabilitation, could even improve his previous home functional status with his arthritis, given that the patient did not take good care of himself prior. I will talk with the family today, but I do not see any reason why the patient has a terminal condition, and continue to urge a short course of aggressive measures in an effort to improve the patient's short and long-term health and functionality. Plan by systems: Neurologic: Severe Agitated Delirium Alcohol Withdraw Risk for spinal cord hypoperfusion Alcohol abuse Lumbar drain placement Propofol, fentanyl for goal RASS -2 Spinal cord injury protection protocol per Dr. Long --d/c narcan yesterday as patient was stating he had significant pain. now > 48h out, no indication for narcan drip. clamp lumbar drain. continue q1h neuro checks. if neuro exam in LEs worsens, will re-open drain. --start tizanidine 2mg po BID for pain adjuvant and to help with delirium --start seroquel 100mg po q8hr for delirium --continue haldol 5mg iv q4h prn for breakthrough agitation. --start valium 10mg po q8hr for etoh withdraw, start slow taper over 1 week. --continue ativan 1mg iv q15min prn for withdraw symptoms --continue to avoid precedex for now given recent junctional bradycardia, NSTEMI , and need for continued spinal cord protection. Respiratory: Acute hypoxic and hypercarbic respiratory failure Vent bundle Head of bed elevated. Does not meet SBT criteria today given his recent reintubation and hypoxia. Wean FiO2 for goal SPO2 greater than 90% Nebs every 6 and every 2 when necessary Cardiovascular: Acute type B dissection s/p Emergent TEVAR Type II NSTEMI- Demand Ischemia- slowly resolving. Junction bradycardia- resolved. Goal map > 90 for spinal protection -- troponins downtrending. will stop trending. -- elevated troponins likely combination of demand ischemia and poor renal clearance -- Cardiology: Dr. Mondragon following. plan for conservative management with myocardial perfusion scan when stable. -- 2d echo: EF 55%, no RWMA. -- trend CVP -- continue pulse contour analysis today. -- clinically euvolemic. no indication for volume resuscitation at this time. -- continue norepinephrine to maintain spinal perfusion. Renal: Acute kidney injury Likely secondary to hyperperfusion of the kidney from dissection, ATN -- Strict I/Os Russell placement Every hour urine outputs --clinically intravascularly euvolemic. --urine electrolytes, eos today. will hold off on renal doppler until tomorrow. FEN/GI: Lactic Acidosis- resolving. Acute protein calorie malnutrition- mild Non-anion gap metabolic acidosis- resolved. Hyperphosphatemia restart TF, nepro. ICU electrolyte protocol Daily BMP --start phos binder. Heme/ID: Leukocytosislikely reactive, slightly improved. Acute Blood Loss Anemia Thrombocytopenia Daily CBC No infectious etiology suspected this time Daily coags --does not meet transfusion trigger at this time. --thrombocytopenia is likely multifactorial from liver disease, consumptive from critical illness and dissection. 4T score 2 (low probability). will hold off on sending HIT. More importantly, platelets 96k this morning. continue daily checks. lumbar drain site looks good without any signs of bleeding. will not transfuse platelets at this level. will not manipulate drain if plt < 50k. Endocrine: Hyperglycemia of critical illness -- SSI, medium scale, every 6 hours Prophylaxis: GI Prophylaxis Protonix 40 mg IV every 24 DVT Prophylaxis -- SCDs Avoid using Lovenox given the spinal drain. The patient may receive heparin subcutaneous every 12. Patient may additionally receive aspirin, but not Plavix. -- for now, SQH q12h. Lines: 07/04 right radial arterial line 07/04 Russell 07/04 lumbar drain Dispo: remain in the ICU. He remains very critically ill This patient remains critically ill with one or more organ systems which are or may become a threat to life. I have spent in excess of 75 minutes discontinuously in the care and management of this patient. This time is exclusive of procedures, and includes, but is not limited to, evaluation of the patient, review of the medical record, discussions with family, consultants, nursing staff, or respiratory therapy, and documentation in the medical record. Dennis Rich MD Jul 07, 2016 06:56
[2016-07-07] MEDS: SODIUM CHLORIDE 0.9% FLUSH 10 ML FLUSH IV FLUSH SCH ×2 (07:18→19:19)
[2016-07-07] MEDS ORDERED: PILL SPLITTER OTHER PRN (07:30)
[2016-07-07] MEDS: DIAZEPAM 10 MG TAB PO SCH ×3 (08:19→20:50)
[2016-07-07] MEDS: PANTOPRAZOLE SODIUM 40 MG VIAL IV SCH (08:19)
[2016-07-07] MEDS: QUEtiapine FUMARATE 100 MG TAB PO SCH ×3 (08:19→20:50)
[2016-07-07] MEDS: CHLORHEXIDINE 0.12% (ORAL KIT) 15 ML CUP MT SCH ×2 (08:19→19:19)
[2016-07-07] MEDS: HEPARIN SODIUM - SQ 10,000 UNITS/ML VIAL SQ SCH ×2 (08:19→19:18)
[2016-07-07] MEDS: MULTIVITAMIN TAB PO SCH (08:19)
[2016-07-07] MEDS: CALCIUM ACETATE 667 MG CAP PO SCH ×3 (08:20→17:06)
[2016-07-07] MEDS: DOCUSATE SODIUM 50 MG/SENNA 8.6 MG TAB PO SCH ×2 (08:20→19:19)
[2016-07-07 08:55] LABS: BACTERIA, URINE FEW /hpf; BLOOD, URINE LARGE (NEG); GLUCOSE,URINE NEG (NEG); KETONE, URINE NEG (NEG); MUCUS URINE FEW /lpf (OCC); NITRITE,URINE NEG (NEG); SQUAMOUS EPITHELIAL CELL URINE 6 /hpf (0-5); URINE COLOR BROWN (YELLW/STRAW)
--- NOTE | 2016-07-07 09:53 | PD.VS.PN ---
Subjective POD #: 3 Procedure(s): TEVAR, L LE fasciotomies for acute TBAD with visceral/renal/LLE malperfusion Subjective/Hospital Course Reintubated last night. Spinal drain clamped and MENSAH; creatinine continues to rise but still making some urine Objective Neuro: MENSAH; sedated appropriately; no focal deficits; spinal drain clamped Pulmonary: Reintubated last night. ABG ok this mornin.39/39/255/23/-1.2; CXR with B effusions vs infiltrates - expected Cardiac: intermittent pressors for goal SBP 140; troponin 6.8 down from max 13; reg rate FEN/GI: TF at 10/h Nepro; e'lytes ok; abdomen soft : BUN/Cr continue to rise (56/3.8) but UOP 10-20/h; + hematuria. ID Antibiotics(date/duration): none; WBC 18 from 22 (likely steroid-induced leukocytosis); Tmax 98.1 ID Cultures: none Heme: Hct 26.5 from 28.5, plt 96 from 106 Endocrine: SSI Drains: spinal drain clamped Laboratory Laboratory Tests Test 07/06/16 07/06/16 07/06/16 07/06/16 12:00 17:00 18:00 23:48 Hemoglobin 9.8 Hematocrit 28.5 Troponin I 12.60 9.13 Nasal Screen MRSA (PCR) NEGATIVE Phosphorus Level 5.7 Blood Gas Puncture Site APOLONIA Blood Gas Patient Temperature 98.6 Blood Gas HCO3 23 Blood Gas Base Excess -1.2 Blood Gas Oxygen Saturation 98 Arterial Blood pH 7.39 Arterial Blood Partial 39 Pressure CO2 Arterial Blood Partial 255 Pressure O2 Arterial Blood Oxygen Content 12.8 Arterial Blood 1.1 Carboxyhemoglobin Arterial Blood Methemoglobin 0.8 Blood Gas Hemoglobin 8.8 Oxygen Delivery Device VENTILATOR Blood Gas Ventilator Setting SEE COMMENT Blood Gas Inspired Oxygen 100 Test 07/07/16 07/07/16 07/07/16 01:00 04:25 07:55 Troponin I 7.23 6.81 White Blood Count 18.2 Red Blood Count 2.89 Hemoglobin 9.3 Hematocrit 26.5 Mean Corpuscular Volume 91.8 Mean Corpuscular Hemoglobin 32.1 Mean Corpuscular Hemoglobin 34.9 Concent Red Cell Distribution Width 13.8 Platelet Count 96 Mean Platelet Volume 11.2 Prothrombin Time 13.4 Prothromb Time International 1.2 Ratio Activated Partial 33.4 Thromboplast Time Sodium Level 134 Potassium Level 4.0 Chloride Level 97 Carbon Dioxide Level 25.4 Anion Gap 12 Blood Urea Nitrogen 56 Creatinine 3.79 Estimat Glomerular Filtration 16 Rate Random Glucose 172 Calcium Level 7.4 Protein Corrected Calcium 8.1 Phosphorus Level 5.3 Magnesium Level 2.3 Total Bilirubin 1.5 Direct Bilirubin 1.0 Indirect Bilirubin 0.5 Aspartate Amino Transf 263 (AST/SGOT) Alanine Aminotransferase 104 (ALT/SGPT) Alkaline Phosphatase 61 Total Protein 6.0 Albumin 2.5 Urine Color BROWN Urine Turbidity HAZY Urine pH 6.0 Urine Specific [place] 1.030 Urine Protein 300 Urine Glucose (UA) NEG Urine Ketones NEG Urine Occult Blood LARGE Urine Nitrite NEG Urine Bilirubin NEG Urine Urobilinogen LESS THAN 2.0 Urine Leukocyte Esterase TRACE Urine RBC 30 Urine WBC 7 Urine Squamous Epithelial 6 Cells Urine Amorphous Sediment MANY Urine Bacteria FEW Urine Mucus FEW Urine Random Creatinine 64.3 Urine Random Sodium 27 Imaging Last 48 hours Impressions Chest X-Ray 07/07/16 0600 Signed Impressions: Service Date/Time: Thursday, July 07, 2016 04:38 - CONCLUSION: 1. New bibasilar infiltrates. Joe Appiah Jr., MD Chest X-Ray 07/06/16 0000 Signed Impressions: Service Date/Time: Wednesday, July 06, 2016 06:22 - CONCLUSION: Clear lungs. Cardiomegaly. Joe Appiah Jr., MD Assessment and Plan Plan POD#3 s/p TEVAR and L LE fasciotomy Expected ATN; req reintubation last night - main issues are mental status, respiratory, renal, and continued prevention of SCI 1. Neuro: likely acute illness and potential EtOH withdrawal; drain clamped and no clinical evidence of SCI. Volume resuscitation and pressors for maximization of spinal cord perfusion. Anticipate removing spinal drain tomorrow - if plt decline will transfuse tomorrow prior to drain d/c 2. Resp: wean vent as tolerated; good oxygenation/ventilation this morning. 3. CV: Goal SBP 140 for SCI protection; troponin trending down 4. FEN/GI: TF ok (Nepro); Monitor e'lytes. Adv TF as tolerated 5. : ATN; will avoid nephrotoxic meds, exogenous K. Plan for renal duplex Friday. Urine electrolytes today. May consult nephrology tomorrow if cr increases 6. ID: no issues 7. Heme: Hct stable (26.5) 8. endocrine: SSI as per ICU team 9. continue pulse checks - perfusion to LLE restored with TEVAR 10. L LE medial fasciotomy wound closed at bedside today. Continue wound care on lateral fasciotomy. 11. FULL CODE for now. Hmalet Long MD FACS grain sampler [facility] Heart [facility] V[facility] Surgery at [facility] [phone] [place] Long MD Jul 07, 2016 09:53
[2016-07-07] MEDS: METOPROLOL TARTRATE 5 MG/5 ML VIAL IV PUSH PRN (12:54)
--- NOTE | 2016-07-07 15:24 | PD.CARD.PN ---
Subjective Subjective Remarks Extubated earlier, now reintubated, on the vent, sedated Objective Medications Current Medications Medications (Trade) Dose Ordered Sig/Sascha Route Start Time Stop Time Status Last Admin (Trandate Inj) 20 mg Q15M PRN IV 07/04/16 19:15 (Apresoline Inj) 10 mg Q15M PRN IV 07/04/16 19:15 07/06/16 14:04 (Lopressor Inj) 5 mg Q5M PRN IV PUSH 07/04/16 19:30 07/07/16 12:54 (Peridex 0.12% Liq) 15 ml BID@08,20 MT 07/05/16 08:00 07/07/16 08:19 (D50w (Vial) Inj) 25 ml UNSCH PRN IV PUSH 07/04/16 22:45 (NovoLIN R SUPPLEMENTAL SCALE) 1 Q6HR SQ 07/05/16 00:00 07/07/16 05:21 (Vitamin B1) 100 mg DAILY PO 07/08/16 09:00 (Theragran) 1 tab DAILY PO 07/05/16 09:00 07/07/16 08:19 (NS Flush) 2 ml UNSCH PRN IV FLUSH 07/04/16 22:45 (NS Flush) 2 ml BID IV FLUSH 07/05/16 09:00 07/07/16 07:18 (Tylenol) 650 mg Q6H PRN PO 07/04/16 22:45 (Protonix Inj) 40 mg DAILY IV 07/05/16 09:00 07/07/16 08:19 (Zofran Inj) 4 mg Q6H PRN IV 07/04/16 22:45 (Stephie-Colace) 2 tab BID PO 07/05/16 09:00 07/07/16 08:20 Miscellaneous Information 1 Q361D XX 07/04/16 22:45 (Chlorhexidine 2% Cloth) 3 pack Taper DAILY@04 TOP 07/05/16 04:00 07/01/17 03:59 07/07/16 03:11 Chlorhexidine Gluconate 3 pack 3 pack UNSCH PRN TOP 07/04/16 22:45 (Narcan Inj/D5W Inj) 250 ml @ 0 mls/hr TITRATE IV 07/04/16 23:00 07/05/16 03:57 Heparin Sodium (Porcine) 5000 units 5,000 units Q12HR SQ 07/05/16 21:00 07/07/16 08:19 (Levophed-Dextrose Drip) 250 ml @ 0 mls/hr TITRATE IV 07/05/16 18:30 07/07/16 04:14 (Haldol Inj) 5 mg Q4H PRN IV 07/06/16 13:30 07/06/16 14:04 (Ativan Inj) 1 mg Q15M PRN IV PUSH 07/06/16 13:30 07/06/16 14:05 (Melatonin) 5 mg HS PO 07/06/16 21:00 Fentanyl Citrate 25 mcg 25 mcg Q30M PRN IV PUSH 07/06/16 13:45 07/07/16 09:03 Propofol 100 ml @ 0 mls/hr TITRATE IV 07/06/16 22:45 07/07/16 04:14 (fentaNYL DRIP) 250 ml @ 0 mls/hr TITRATE IV 07/06/16 22:45 (SEROquel) 100 mg Q8HR PO 07/07/16 07:30 07/07/16 13:34 (Zanaflex) 2 mg Q12HR PO 07/07/16 09:00 07/07/16 09:03 (Valium) 10 mg Taper Q8HR PO 07/07/16 07:30 07/15/16 07:29 07/07/16 13:34 (Phoslo) 2,668 mg TID PO 07/07/16 09:00 07/07/16 13:34 (Pill Splitter) 1 ea UNSCH PRN OTHER 07/07/16 07:30 Vital Signs / I&O Vital Signs Date Time Temp Pulse Resp B/P Pulse Ox O2 Delivery O2 Flow Rate FiO2 07/07/16 14:00 151/56 07/07/16 14:00 61 07/07/16 12:58 100 40 07/07/16 12:00 180/65 07/07/16 12:00 40 07/07/16 12:00 82 07/07/16 12:00 96.9 82 18 180/65 98 07/07/16 10:00 144/51 07/07/16 10:00 75 07/07/16 09:57 99 40 07/07/16 08:00 73 07/07/16 08:00 161/61 07/07/16 08:00 40 07/07/16 08:00 97.4 73 18 161/61 98 Automatic Cuff 07/07/16 07:22 97 40 07/07/16 07:00 97 Mechanical Ventilator 40 07/07/16 06:00 70 07/07/16 06:00 147/54 07/07/16 04:00 135/58 07/07/16 04:00 73 07/07/16 04:00 96.5 74 18 135/58 95 07/07/16 04:00 50 07/07/16 03:50 95 50 07/07/16 02:00 76 07/07/16 02:00 141/55 07/07/16 00:00 79 07/07/16 00:00 97.3 79 18 140/53 98 07/07/16 00:00 50 07/07/16 00:00 140/53 07/06/16 22:50 100 07/06/16 22:00 126/50 07/06/16 22:00 99 07/06/16 20:00 97.4 93 16 130/54 98 07/06/16 20:00 93 07/06/16 20:00 130/54 07/06/16 19:44 98 Non-Rebreather 07/06/16 19:00 98 Non-Rebreather 4.00 07/06/16 18:00 143/55 07/06/16 18:00 93 07/06/16 16:00 145/53 07/06/16 16:00 96.0 91 23 145/53 94 07/06/16 16:00 91 I/O 07/06/16 07/06/16 07/06/16 07/07/16 07/07/16 07/07/16 07:00 15:00 23:00 07:00 15:00 23:00 Intake Total 1084 ml 838 ml 1139 ml 514 ml 430 ml Output Total 432 ml 1261 ml 306 ml 183 ml 287 ml Balance 652 ml -423 ml 833 ml 331 ml 143 ml Intake IV Total 1084 ml 748 ml 1139 ml 514 ml 186 ml Tube Feeding 30 ml 184 ml Tube Irrigant 60 ml 60 ml Output Urine Total 140 ml 153 ml 165 ml 93 ml 275 ml Gastric Drainage Total 200 ml 200 ml Tube Feeding Residual Discard 0 ml Drainage Total 92 ml 908 ml 141 ml 90 ml 12 ml Physical Exam GENERAL: Intubated, sedated SKIN: Warm and dry. HEAD: Normocephalic. EYES: No scleral icterus. No injection or drainage. NECK: Supple, trachea midline. No JVD or lymphadenopathy. CARDIOVASCULAR: Regular rate and rhythm without murmurs, gallops, or rubs. RESPIRATORY: Breath sounds equal bilaterally. No accessory muscle use. GASTROINTESTINAL: Abdomen soft, non-tender, nondistended. MUSCULOSKELETAL: No cyanosis, mild edema, good pedal perfusion Laboratory Laboratory Tests Test 07/06/16 07/06/16 07/06/16 07/07/16 17:00 18:00 23:48 01:00 Nasal Screen MRSA (PCR) NEGATIVE Phosphorus Level 5.7 MG/DL Troponin I 9.13 NG/ML 7.23 NG/ML Blood Gas Puncture Site APOLONIA Blood Gas Patient Temperature 98.6 Blood Gas HCO3 23 mmol/L Blood Gas Base Excess -1.2 mmol/L Blood Gas Oxygen Saturation 98 % Arterial Blood pH 7.39 Arterial Blood Partial 39 mmHg Pressure CO2 Arterial Blood Partial 255 mmHg Pressure O2 Arterial Blood Oxygen Content 12.8 Vol % Arterial Blood 1.1 % Carboxyhemoglobin Arterial Blood Methemoglobin 0.8 % Blood Gas Hemoglobin 8.8 G/DL Oxygen Delivery Device VENTILATOR Blood Gas Ventilator Setting SEE COMMENT Blood Gas Inspired Oxygen 100 % Test 07/07/16 07/07/16 04:25 07:55 White Blood Count 18.2 TH/MM3 Red Blood Count 2.89 MIL/MM3 Hemoglobin 9.3 GM/DL Hematocrit 26.5 % Mean Corpuscular Volume 91.8 FL Mean Corpuscular Hemoglobin 32.1 PG Mean Corpuscular Hemoglobin 34.9 % Concent Red Cell Distribution Width 13.8 % Platelet Count 96 TH/MM3 Mean Platelet Volume 11.2 FL Prothrombin Time 13.4 SEC Prothromb Time International 1.2 RATIO Ratio Activated Partial 33.4 SEC Thromboplast Time Sodium Level 134 MEQ/L Potassium Level 4.0 MEQ/L Chloride Level 97 MEQ/L Carbon Dioxide Level 25.4 MEQ/L Anion Gap 12 MEQ/L Blood Urea Nitrogen 56 MG/DL Creatinine 3.79 MG/DL Estimat Glomerular Filtration 16 ML/MIN Rate Random Glucose 172 MG/DL Calcium Level 7.4 MG/DL Protein Corrected Calcium 8.1 MG/DL Phosphorus Level 5.3 MG/DL Magnesium Level 2.3 MG/DL Total Bilirubin 1.5 MG/DL Direct Bilirubin 1.0 MG/DL Indirect Bilirubin 0.5 MG/DL Aspartate Amino Transf 263 U/L (AST/SGOT) Alanine Aminotransferase 104 U/L (ALT/SGPT) Alkaline Phosphatase 61 U/L Troponin I 6.81 NG/ML Total Protein 6.0 GM/DL Albumin 2.5 GM/DL Urine Color BROWN Urine Turbidity HAZY Urine pH 6.0 Urine Specific [place] 1.030 Urine Protein 300 mg/dL Urine Glucose (UA) NEG mg/dL Urine Ketones NEG mg/dL Urine Occult Blood LARGE Urine Nitrite NEG Urine Bilirubin NEG Urine Urobilinogen LESS THAN 2.0 MG/DL Urine Leukocyte Esterase TRACE Urine RBC 30 /hpf Urine WBC 7 /hpf Urine Squamous Epithelial 6 /hpf Cells Urine Amorphous Sediment MANY Urine Bacteria FEW /hpf Urine Mucus FEW /lpf Urine Eosinophils NONE SEEN /HPF Urine Random Creatinine 64.3 MG/DL Urine Random Sodium 27 MEQ/L Imaging Last Impressions Chest X-Ray 07/07/16 0600 Signed Impressions: Service Date/Time: Thursday, July 07, 2016 04:38 - CONCLUSION: 1. New bibasilar infiltrates. Joe Appiah Jr., MD Aorta CTA 07/04/16 0000 Signed Impressions: Service Date/Time: June 19:53 - CONCLUSION: 1. Extensive aortic dissection extending from the proximal transverse aorta just distal to the origin of the left subclavian artery. Dissection extends distally through both superficial femoral arteries. 2. Occlusion of the right renal artery with absent perfusion of the right kidney. Dissection of the left renal artery with absent perfusion of the anterior left kidney. 3. 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 4. Occlusion of left external iliac artery and right internal iliac artery. 5. ET tube in satisfactory position. Dependent consolidation in both lungs. Probable mild liver cirrhosis. No obstruction or free fluid. Russell catheter in decompressed bladder. See above discussion. 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 Wean vent as tolerated. Echo w preserved LV systolic fx and no segmental WMA. Recheck limited echo tomorrow. Nomi Mondragon MD Jul 07, 2016 15:24
[2016-07-07] MEDS: MELATONIN 5 MG TAB PO SCH (19:18)
[2016-07-08] VITALS (17 sets, daily range): BP systolic 154–178; BP diastolic 50–64; PULSE 54–66; RESP 18–19; TEMP 96.7–97.8; O2SAT 96–100
[2016-07-08] MEDS: RESP: ALBUTEROL 2.5 MG/IPRATROPIUM 0.5 MG NEB (SCH) INH ×4 (03:12→19:55)
[2016-07-08] MEDS: CHLORHEXIDINE GLUCONATE 2 % 1 PACK (2 CLOTHS) TOP SCH (03:37)
[2016-07-08 04:23] LABS: HEMATOCRIT 25.9 % (39.0-51.0); MEAN CELL VOLUME 91.8 FL (80.0-100.0); MEAN CORPUSCULAR HEMOGLOBIN 32.1 PG (27.0-34.0); MEAN CORPUSCULAR HGB CONC 34.9 % (32.0-36.0); PLATELET COUNT 66 TH/MM3 (150-450); RED BLOOD COUNT 2.82 MIL/MM3 (4.50-5.90); RED CELL DISTRIBUTION WIDTH 13.4 % (11.6-17.2); WHITE BLOOD COUNT 12.4 TH/MM3 (4.0-11.0)
[2016-07-08 04:26] LABS: REVIEW FLAG FINAL
[2016-07-08 04:29] LABS: APTT (PATIENT) 31.8 SEC (24.3-30.1); INTERNATIONAL NORMALIZED RATIO 1.1 RATIO; PROTHROMBIN TIME - PATIENT 11.8 SEC (9.8-11.6)
[2016-07-08 04:53] LABS: BICARBONATE 23.2 MEQ/L (21.0-32.0); INDIRECT BILIRUBIN 0.3 MG/DL (0.0-0.8); MAGNESIUM 2.6 MG/DL (1.5-2.5); POTASSIUM 4.4 MEQ/L (3.5-5.1); TOTAL BILIRUBIN ADULT 1.1 MG/DL (0.2-1.0)
[2016-07-08] MEDS: DIAZEPAM 10 MG TAB PO SCH ×3 (05:05→20:52)
[2016-07-08] MEDS: QUEtiapine FUMARATE 100 MG TAB PO SCH ×3 (05:05→20:52)
[2016-07-08] MEDS: INSULIN NovoLIN REGULAR SUPPLEMENTAL SCALE SQ SCH ×3 (05:06→18:00)
[2016-07-08] MEDS: NOREPINEPHRINE 4 MG/D5W 250 ML IV SCH ×2 (05:26→20:51)
[2016-07-08 06:22] LABS: MEAN CORPUSCULAR HGB CONC 36.1 % (32.0-36.0)
[2016-07-08] MEDS ORDERED: SODIUM CHLOR 0.9% 250 ML INJ 250 ML IV ONE (06:30)
--- NOTE | 2016-07-08 06:32 | HHI.CCPN ---
Subjective Remarks/Hospital Course Hospital Course: This is a 60-year-old male who is transferred emergently from outside hospital with per report and acute type B dissection. Apparently the patient told his family member today that he had searing back pain and was taken to the emergency department. A CT of the chest at that time showed a type B dissection. The patient was intubated the outside facility and transferred to [facility] for emergent evaluation management. Unfortunately, the patient is unable to provide any additional history at this time. I was at bedside and the patient arrived to the surgical intensive care unit. Dr. Long and I both evaluated the patient and when he arrived he was in a junctional bradycardia with heart rate in the 40s. He had obvious ST depressions in lead II on telemetry. Our initial concern was that we have extended the dissection into the type A dissection. We also did not have any CT of the abdomen and pelvis. On her physical exam, the patient had a cold left foot without pulses. I emergently placed a right radial arterial line, please see separate procedure note for details. We then went emergently to the CT scanner for repeat CT aortogram of the chest abdomen and pelvis to investigate the extent to which the dissection has extended. The CT aortogram demonstrated that this was still a type B dissection with the celiac artery being significantly compressed and possibly comprising flow from the dissection flap. The right kidney appears to be perfused off the false lumen and not the true lumen, and there is no contrast going down the left femoral artery. Patient was then brought back to the intensive care unit. His blood pressure is controlled on nicardipine infusion for goal systolic blood pressure less than 110. A 12-lead EKG at that time was done which demonstrated significant ST depressions in the inferior leads as well as the far lateral leads consistent with subendocardial ischemia. At the request of Dr. Long in anticipation of going emergently to the operative theater, I placed a lumbar drain for spinal protection, please see separate procedure note for details. At that point the patient was taken emergently to the operating room. Critical care medicine is been consulted to evaluate and manage the patient's type B dissection, hemodynamic's, acute hypoxic respiratory failure. Subjective: 07/05: taken to OR for TEVAR overnight. lactate cleared overnight. uop adequate. Cr elevated to 1.8 this AM. 07/06: oliguric overnight. Cr rising. however, lactate cleared. other markers of end-organ perfusion better. likely ATN from time of dissection. awake following commands. moving bilateral lower extremities. clear CSF in lumbar drain. on intermittent norepinephrine to maintain spinal perfusion. 07/07: extubated yesterday, followed commands, good pulmonary mechanics. However , after extubation, became acutely delirious- probable combination of etoh withdraw and icu delirium, some pain. mental status waxed and waned throughout the day and ultimately reintubated overnight for worsening waning mental status and hypoxia. post-extubation it has been documented that he continues to move his bilateral lower extremities to painful stimuli and spontaneously. does not follow commands this morning. troponins downtrending. cardiology evaluated the patient yesterday, formal note pending, but per my conversation, plan was for ongoing conservative management as we are doing, and plan for nuc med stress test when stable. 07/08: still moving bilateral LEs spontaneously and w/d to pain. remains intubated with persistent agitation. hypoxia improving. platelets continue to fall, likely a combination of consumption, BUBBA, liver disease. will give unit of platelets prior to d/c lumbar drain. Objective Vital Signs Date Time Temp Pulse Resp B/P Pulse Ox O2 Delivery O2 Flow Rate FiO2 07/08/16 04:00 56 07/08/16 04:00 40 07/08/16 04:00 97.0 19 156/50 99 07/07/16 19:00 Mechanical Ventilator 07/06/16 19:00 4.00 Intake and Output 07/07/16 07/07/16 07/07/16 07:59 15:59 23:59 Intake Total 514 ml 430 ml 579 ml Output Total 183 ml 287 ml 120 ml Balance 331 ml 143 ml 459 ml Result Diagram: 07/08/16 0345 07/08/16 0345 Objective Remarks GENERAL: Middle-aged male, lying in bed, intubated, sedated, critically ill HEENT: Normocephalic. Atraumatic. Pupils 2 mm, equal, round, reactive, conjugate. Mucous membranes are moist. NECK: trachea is midline. No JVD. Orotracheally intubated CHEST: Equal chest rise. Clear to auscultation. PRVC CARDIOVASCULAR: normal rate, regular rhythm. no appreciable murmurs. ABDOMEN: Soft, nontender, nondistended. No guarding. MUSCULOSKELETAL: distal pulses 2+. NEUROLOGICAL: RASS -3. withdraws in b/l LEs. A/P Assessment and Plan Assessment: 60yM with acute type B dissection s/p emergent TEVAR. Course complicated by type II NSTEMI with demand ischemia, acute agitated delirium and hypoxic respiratory failure requiring re-intubation, acute oligoanuric renal failure. He remains critically ill. Will plan on removal of lumbar drain today. platelet transfusion and monitoring for ongoing consumptive coagulopathy. ATN persists and GFR remains poor. FENa 1.2% consistent with ATN. I have ordered renal ultrasound with doppler to rule out obstruction and poor vascular flow secondary to dissection/TEVAR. Continue with permissive/forced hypertension. Continue frequent neuro checks. I continue to think that although he is off pathway and remains critically ill in multi-organ system failure, that this is overall still a generalized improving course and the overall outcome could still be favorable. I am still pushing for aggressive measures as I do not think this is a terminal diagnosis. Plan by systems: Neurologic: Severe Agitated Delirium Alcohol Withdraw Risk for spinal cord hypoperfusion Alcohol abuse Lumbar drain placement Propofol, fentanyl for goal RASS -2 -- d/c lumbar drain today. Delirium/Withdraw regimen: --tizanidine 2mg po BID for pain adjuvant and to help with delirium --seroquel 100mg po q8hr for delirium --haldol 5mg iv q4h prn for breakthrough agitation. --valium 10mg po q8hr for etoh withdraw, start slow taper over 1 week. --ativan 1mg iv q15min prn for withdraw symptoms --continue to avoid precedex for now given recent junctional bradycardia, NSTEMI , and need for continued spinal cord protection. Respiratory: Acute hypoxic and hypercarbic respiratory failure Vent bundle Head of bed elevated. will attempt SAT/SBT to see if the agitation is under better control. Wean FiO2 for goal SPO2 greater than 90% Nebs every 6 and every 2 when necessary Cardiovascular: Acute type B dissection- secured s/p Emergent TEVAR Type II NSTEMI- Demand Ischemia- resolving Junction bradycardia- resolved. Goal map > 80 for spinal protection -- troponins downtrending. will stop trending. -- elevated troponins likely combination of demand ischemia and poor renal clearance -- Cardiology: Dr. Mondragon following. plan for conservative management with myocardial perfusion scan when stable. -- 2d echo: EF 55%, no RWMA. -- trend CVP -- continue pulse contour analysis today. -- clinically euvolemic. no indication for volume resuscitation at this time. -- continue norepinephrine to maintain spinal perfusion. Renal: Acute kidney injury Acute Tubular Necrosis Likely secondary to hyperperfusion of the kidney from dissection, ATN -- FENa 07/07 1.2% consistent with ATN. Urine eos negative. -- order renal ultrasound with doppler. pending. -- Strict I/Os Russell placement Every hour urine outputs --clinically intravascularly euvolemic. --no indication for emergent renal replacement therapy at this time. --nephrology consult today. FEN/GI: Lactic Acidosis- resolved. Acute protein calorie malnutrition- mild Non-anion gap metabolic acidosis- resolved. Hyperphosphatemia TF: nepro at goal 40. --nutrition consult. Daily BMP --phos binder Heme/ID: Leukocytosislikely reactive, improved. Acute Blood Loss Anemia Thrombocytopenia Daily CBC No infectious etiology suspected this time Daily coags --thrombocytopenia is likely multifactorial from liver disease, consumptive from critical illness and dissection. 4T score 2 (low probability). will hold off on sending HIT. --give 1 unit apheresis platelets this morning and recheck plt count prior to discontinuing lumbar drain. Endocrine: Hyperglycemia of critical illness -- SSI, medium scale, every 6 hours Prophylaxis: GI Prophylaxis Protonix 40 mg IV every 24 DVT Prophylaxis -- SCDs Avoid using Lovenox given the spinal drain. The patient may receive heparin subcutaneous every 12. Patient may additionally receive aspirin, but not Plavix. -- for now, SQH q12h. after drain pulled, no anticoagulation x 4 hours, then fine to restart any anticoagulation. Lines: 07/04 right radial arterial line --07/04 right IJ cortis 07/04 Russell 07/04 lumbar drain- will d/c this today Dispo: remain in the ICU. He remains very critically ill This patient remains critically ill with one or more organ systems which are or may become a threat to life. I have spent in excess of 39 minutes discontinuously in the care and management of this patient. This time is exclusive of procedures, and includes, but is not limited to, evaluation of the patient, review of the medical record, discussions with family, consultants, nursing staff, or respiratory therapy, and documentation in the medical record. Dennis Rich MD Jul 08, 2016 06:32
[2016-07-08] MEDS: CHLORHEXIDINE 0.12% (ORAL KIT) 15 ML CUP MT SCH ×2 (08:00→20:52)
--- NOTE | 2016-07-08 08:27 | PD.VS.PN ---
Subjective POD #: 4 Procedure(s): TEVAR, L LE fasciotomies for acute TBAD with visceral/renal/LLE malperfusion Subjective/Hospital Course stable overnight; continues to be neuro intact with spinal drain clamped Objective Neuro: MENSAH; spinal drain clamped Pulmonary: IMV 18; decent sats Cardiac: reg rate, low dose pressors for SBP augmentation for SCPP Palpable B LE pulses Fasciotomy dressed today - looks good, hemostatic SVV <8 so not hypovolemic FEN/GI: trickle TF; abd edematous but not distended : creatinine continues to rise; FENa 1.2; UOP 10-20cc/h ID Antibiotics(date/duration): WBC down to 12 Tm 97.4 ID Cultures: none Heme: Hct 26 plt 66 Drains: spinal drain clamped Laboratory Laboratory Tests Test 07/08/16 07/08/16 03:45 06:34 White Blood Count 12.4 Red Blood Count 2.82 Hemoglobin 9.1 Hematocrit 25.9 Mean Corpuscular Volume 91.8 Mean Corpuscular Hemoglobin 32.1 Mean Corpuscular Hemoglobin 34.9 Concent Red Cell Distribution Width 13.4 Platelet Count 66 Mean Platelet Volume 11.3 Prothrombin Time 11.8 Prothromb Time International 1.1 Ratio Activated Partial 31.8 Thromboplast Time Sodium Level 134 Potassium Level 4.4 Chloride Level 97 Carbon Dioxide Level 23.2 Anion Gap 14 Blood Urea Nitrogen 80 Creatinine 4.75 Estimat Glomerular Filtration 13 Rate Random Glucose 157 Calcium Level 7.7 Phosphorus Level 6.3 Magnesium Level 2.6 Total Bilirubin 1.1 Direct Bilirubin 0.8 Indirect Bilirubin 0.3 Aspartate Amino Transf 163 (AST/SGOT) Alanine Aminotransferase 69 (ALT/SGPT) Alkaline Phosphatase 62 Total Protein 6.0 Albumin 2.5 Blood Bank Comment Imaging Last 48 hours Impressions Chest X-Ray 07/07/16 0600 Signed Impressions: Service Date/Time: Thursday, July 07, 2016 04:38 - CONCLUSION: 1. New bibasilar infiltrates. Joe Appiah Jr., MD Assessment and Plan Plan POD#4 s/p TEVAR and L LE fasciotomy Expected ATN; stable vent 1. Neuro: remove spinal drain after plt transfusion; continue BP augmentation for SCPP 2. Resp: wean vent as tolerated 3. CV: Goal SBP 140 for SCI protection 4. FEN/GI: TF ok (Nepro); Monitor e'lytes. Adv TF as tolerated 5. : ATN; will avoid nephrotoxic meds, exogenous K. Renal duplex today. Nephrology c/s 6. ID: no issues 7. Heme: Hct stable (26) 8. endocrine: SSI as per ICU team 9. continue pulse checks - perfusion to LLE restored with TEVAR 10. Continue wound care on lateral fasciotomy. 11. FULL CODE Hamlet Long MD FACS career development consultant [facility] at [facility] [phone] Hamlet Long MD Jul 08, 2016 08:27
--- NOTE | 2016-07-08 08:49 | MB ---
cc: NOMI MONDRAGON DATE OF CONSULTATION 07/06/16 History of Present Illness Mr. Trujillo is a 60 year old white male who presented with acute type B aortic dissection. He underwent emergency surgery with a good result. He was extubated today. His troponin is significantly elevated. He denies any chest pain or shortness of breath. He had left LE fasciotomy for cold left foot without pulses. His perfusion is now improved. PAST MEDICAL HISTORY 1. Hypertension 2. Coronary artery disease 3. Congestive heart failure 4. Hepatitis C 5. Alcoholism 6. Chronic obstructive pulmonary disease 7. Medication noncompliance. MEDICATIONS 1. Thiamine 2. Melatonin 3. Heparin subcu 4. Norepinephrine IV 5. Multivitamin 6. Protonix 7. Stephie-Colace 8. Inhalers ALLERGIES None. SOCIAL HISTORY The patient is a smoker. He also drinks alcohol. FAMILY HISTORY Unknown at this time. REVIEW OF SYSTEMS Otherwise negative PHYSICAL EXAMINATION VITAL SIGNS: Blood pressure 162/60, pulse 90 and regular. GENERAL: Alert, confused. LUNGS: Bilateral rhonchi. HEART: Regular with no murmurs, rubs or gallops ABDOMEN: Soft, no bruits. EXTREMITIES: With mild edema, 1+ distal pulses. NEUROLOGIC: Grossly nonfocal. CARDIOLOGY STUDIES Electrocardiogram was reviewed and showed junctional bradycardia at 47 beats per minute, left axis and diffuse ST-T wave changes (07/04, 7:00 p.m.). Telemetry shows sinus rhythm. Echocardiogram showed preserved left ventricular systolic function, estimated ejection fraction of 55% with no WMA, left ventricular hypertrophy, mild mitral and tricuspid regurgitation. LABORATORY DATA Hemoglobin 9.8, potassium 3.9, creatinine 2.72, AST 368, ALT 153., troponin 13.1 DIAGNOSES 1. Acute type B aortic dissection 2. Elevated troponin 3. Acute renal insufficiency 4. Alcohol abuse 5. Smoking. DISPOSITION Mr. Trujillo will be monitored in the Intensive Care Unit. We will repeat echocardiogram on Friday to reevaluate his left ventricular function. At this time, we will continue blood pressure control. We may be able to start anticoagulation in the next 48 hours. I will follow him for cardiology during his hospitalization. The plan was discussed with Dr. Rich. Nomi Mondragon MD OVida/ /5:42 PM /8:40 AM MTDAdan
[2016-07-08] MEDS: SODIUM CHLORIDE 0.9% FLUSH 10 ML FLUSH IV FLUSH SCH ×2 (09:00→20:53)
[2016-07-08] MEDS: DOCUSATE SODIUM 50 MG/SENNA 8.6 MG TAB PO SCH ×2 (09:00→20:52)
[2016-07-08 09:43] LABS: HEMATOCRIT 25.1 % (39.0-51.0); MEAN CELL VOLUME 91.6 FL (80.0-100.0); PLATELET COUNT 100 TH/MM3 (150-450); RED BLOOD COUNT 2.74 MIL/MM3 (4.50-5.90); RED CELL DISTRIBUTION WIDTH 13.6 % (11.6-17.2); WHITE BLOOD COUNT 12.1 TH/MM3 (4.0-11.0)
[2016-07-08 09:44] LABS: REVIEW FLAG FINAL
[2016-07-08] MEDS: PANTOPRAZOLE SODIUM 40 MG VIAL IV SCH (09:49)
[2016-07-08] MEDS: CALCIUM ACETATE 667 MG CAP PO SCH ×3 (09:50→18:40)
[2016-07-08] MEDS: THIAMINE HCL 100 MG TAB PO SCH (09:50)
[2016-07-08] MEDS: MULTIVITAMIN TAB PO SCH (09:50)
--- NOTE | 2016-07-08 11:06 | PD.CONS ---
HPI Consult Requested By Reason for Consult Acute renal failure. Primary Care Physician Unknown History of Present Illness This patient is a 60-year-old male apparently with a history of previous alcohol and crack usage also has a history of hepatitis C, coronary disease and hypertension as well as medical noncompliance. Patient was admitted with a type B aortic dissection. CTA thoracic aorta and abdominal aorta performed July 04, 2016 revealed unoccluded right renal artery as well as perfusion only to the left posterior aspect of the left kidney. Patient status post emergent TAVA, left lower extremity fasciectomy mention of previous nonperfusion to that extremity. Patient's creatinine level was within normal range from previous records prior to this admission however patient had evidence of renal sufficiency on presentation and his creatinine level has continued to rise to a level of 4.75 today with marginal urine output. Duplex study has been ordered of the kidneys. Review of Systems ROS Limitations: Clinical Condition Past Family Social History Allergies: Coded Allergies: No Known Allergies (Verified , 01/18/07) Past Medical History Hypertension Coronary disease CHF Hepatitis C Outcome abuse Previous crack usage current status of that usage unknown. COPD. Mention of cirrhosis in the records. Past Surgical History Status post T DAWN R this admission. Left lower extremity fasciectomy this admission. Reported Medications Current Medications Esmolol HCl/ Sodium Chloride 250 ml @ 0 mls/hr TITRATE IV ; Start 07/04/16 at 19 :15; Stop 07/05/16 at 12:28; Status DC Nicardipine HCl/ Sodium Chloride (Cardene Inj/NS 250 ml Inj) 250 ml @ 0 mls/hr TITRATE IV Last administered on 07/05/16 08:43; Start 07/04/16 at 19:15; Stop 07/05/16 at 12:28; Status DC Labetalol HCl (Trandate Inj) 20 mg Q15M PRN IV SEE COMMENTS; Start 07/04/16 at 19:15 Hydralazine HCl (Apresoline Inj) 10 mg Q15M PRN IV SEE COMMENTS Last administered on 07/06/16 14:04; Start 07/04/16 at 19:15 Metoprolol Tartrate 5 mg 5 mg Q5M PRN IV PUSH SEE COMMENTS Last administered on 07/07/16 12:54; Start 07/04/16 at 19:30 Propofol 100 ml @ 0 mls/hr TITRATE IV Last administered on 07/06/16 08:32; Start 07/04/16 at 19:30; Stop 07/06/16 at 13:23; Status DC Fentanyl Citrate (fentaNYL DRIP) 250 ml @ 0 mls/hr TITRATE IV Last administered on 07/06/16 07:01; Start 07/04/16 at 19:30; Stop 07/06/16 at 13:23 ; Status DC Epinephrine HCl (EPINEPHrine (1:10,000) INJ) 1 mg STK-MED ONCE .ROUTE ; Start at 19:34; Stop 07/04/16 at 19:35; Status DC Atropine Sulfate (Atropine Inj) 1 mg STK-MED ONCE .ROUTE ; Start 07/04/16 at 19: 34; Stop 07/04/16 at 19:35; Status DC Lidocaine HCl (Xylocaine 2% Inj) 100 mg STK-MED ONCE .ROUTE ; Start 07/04/16 at 19:34; Stop 07/04/16 at 19:35; Status DC Iohexol (Omnipaque 350 Inj) 100 ml STK-MED ONCE IV Last administered on 19:58; Start 07/04/16 at 19:58; Stop 07/04/16 at 19:59; Status DC Bupivacaine HCl/ Epinephrine Bitart (Sensorcaine-Epinephrine Pf 0.5% Inj) 30 ml STK-MED ONCE .ROUTE ; Start 07/04/16 at 20:21; Stop 07/04/16 at 20:22; Status DC Thrombin (Thrombin Top Soln) 10,000 units STK-MED ONCE .ROUTE ; Start 07/04/16 at 20:21; Stop 07/04/16 at 20:22; Status DC Gelatin (Gelfoam 100 Top) 1 foam STK-MED ONCE .ROUTE ; Start 07/04/16 at 20:21; Stop 07/04/16 at 20:22; Status DC Cefazolin Sodium (Ancef Inj) 2,000 mg STK-MED ONCE .ROUTE Last administered on 07/04/16 22:03; Start 07/04/16 at 20:22; Stop 07/04/16 at 20:23; Status DC Heparin Sodium (Porcine) (Heparin Inj) 60,000 units STK-MED ONCE .ROUTE ; Start 07/04/16 at 20:22; Stop 07/04/16 at 20:23; Status DC Protamine Sulfate (Protamine Sulfate Inj) 100 mg STK-MED ONCE .ROUTE ; Start at 20:22; Stop 07/04/16 at 20:23; Status DC Heparin Sodium (Porcine) 72038 units 20,000 units STK-MED ONCE .ROUTE Last administered on 07/04/16t 22:04; Start 07/04/16 at 20:38; Stop 07/04/16 at 20:39 ; Status DC Methylprednisolone Sodium Succinate/ Sodium Chloride (SoluMEDROL INJ/ NS 250 ml Inj) 290 ml @ 580 mls/hr ONCE ONCE IV ; Start 07/04/16 at 21:30; Stop at 21:59; Status DC Magnesium Oxide 800 mg 800 mg UNSCH PRN PO For Magnesium 1.2 - 1.6 mg/dL; Start 07/04/16 at 22:45; Stop 07/06/16 at 09:16; Status DC Magnesium Sulfate 4 gm/Sodium Chloride 100 ml @ 50 mls/hr UNSCH PRN IV For Magnesium 0.9 - 1.1 mg/dL; Start 07/04/16 at 22:45; Stop 07/06/16 at 09:15; Status DC Magnesium Sulfate 2 gm/Sodium Chloride 100 ml @ 50 mls/hr UNSCH PRN IV For Magnesium 1.2 - 1.6 mg/dL; Start 07/04/16 at 22:45; Stop 07/06/16 at 09:16; Status DC Potassium Chloride 100 ml @ 50 mls/hr Q2H PRN IV For Potassium 2.8 - 3.2 mEq/L ; Start 07/04/16 at 22:45; Stop 07/06/16 at 09:16; Status DC Potassium Chloride 100 ml @ 50 mls/hr Q2H PRN IV For Potassium 3.3 - 3.5 mEq/L ; Start 07/04/16 at 22:45; Stop 07/06/16 at 09:16; Status DC Potassium Chloride 100 ml @ 50 mls/hr Q2H PRN IV For Potassium 2.8 - 3.2 mEq/L ; Start 07/04/16 at 22:45; Stop 07/06/16 at 09:16; Status DC Potassium Chloride (KCl 40 Meq Premix Inj) 100 ml @ 25 mls/hr UNSCH PRN IV For Potassium 3.3 - 3.5 mEq/L Last administered on 07/05/16 08:43; Start at 22:45; Stop 07/06/16 at 09:16; Status DC Potassium Phosphate (K-Phos) 2,000 mg Q4H PRN PO For Phosphorus < 2.5 mg/dL; Start 07/04/16 at 22:45; Stop 07/06/16 at 09:16; Status DC Potassium Phosphate 2000 mg 2,000 mg UNSCH PRN PO/TUBE SEE LABEL COMMENTS; Start 07/04/16 at 22:45; Stop 07/06/16 at 09:16; Status DC Potassium Phosphate 30 mmol/ Sodium Chloride 260 ml @ 42 mls/hr UNSCH PRN IV SEE LABEL COMMENTS; Start 07/04/16 at 22:45; Stop 07/06/16 at 09:16; Status DC Sodium Phosphate/ Sodium Chloride (Sodium Phosphate Inj/NS 250 ml Inj) 250 ml @ 42 mls/hr UNSCH PRN IV For Phosphorus < 2.5 mg/dL; Start 07/04/16 at 22:45; Stop 07/06/16 at 09:16; Status DC Chlorhexidine Gluconate (Peridex 0.12% Liq) 15 ml BID@08,20 MT Last administered on 07/08/16 08:00; Start 07/05/16 at 08:00 Dextrose (D50w (Vial) Inj) 25 ml UNSCH PRN IV PUSH HYPOGLYCEMIA-SEE COMMENTS; Start 07/04/16 at 22:45 Insulin Human Regular 1 1 Q6HR SQ Last administered on 07/08/16 05:06; Start 07/05/16 at 00:00 Thiamine HCl/ Sodium Chloride (Thiamine Inj/NS Inj) 101 ml @ 101 mls/hr Q24H IV Last administered on 07/06/16 01:11; Start 07/05/16 at 02:00; Stop at 02:59; Status DC Thiamine HCl 100 mg 100 mg DAILY PO Last administered on 07/08/16 09:50; Start 07/08/16 at 09:00 Multivitamins/ Thiamine HCl/ Folic Acid/Sodium Chloride (Mvi-12 Inj/ Thiamine Inj/ Folvite Inj/1/2 NS 500 ml Inj) 511.2 ml @ 125 mls/hr ONCE ONCE IV Last administered on 07/05/16 02:05; Start 07/04/16 at 23:00; Stop 07/05/16 at 03:05 ; Status DC Multivitamins (Theragran) 1 tab DAILY PO Last administered on 07/08/16 09:50; Start 07/05/16 at 09:00 Albuterol/ Ipratropium (Duoneb Neb) 1 ampule Q6HR NEB INH Last administered on 07/08/16 08:32; Start 07/05/16 at 04:00 Albuterol/ Ipratropium 1 ampule 1 ampule Q2HR NEB PRN INH WHEEZING; Start 07/04 at 22:45 Sodium Chloride (NS 1000 ml Inj) 1,000 ml @ 100 mls/hr Q10H IV ; Start at 23:00; Stop 07/05/16 at 00:42; Status DC Sodium Chloride (NS Flush) 2 ml UNSCH PRN IV FLUSH FLUSH AFTER USING IV ACCESS ; Start 07/04/16 at 22:45 Sodium Chloride (NS Flush) 2 ml BID IV FLUSH Last administered on 07/08/16 09: 00; Start 07/05/16 at 09:00 Acetaminophen (Tylenol) 650 mg Q6H PRN PO PAIN 1-10 AND/OR FEVER >101F; Start 07/04/16 at 22:45 Pantoprazole Sodium (Protonix Inj) 40 mg DAILY IV Last administered on 09:49; Start 07/05/16 at 09:00 Ondansetron HCl (Zofran Inj) 4 mg Q6H PRN IV NAUSEA OR VOMITING; Start at 22:45 Senna/Docusate Sodium (Stephie-Colace) 2 tab BID PO Last administered on 09:00; Start 07/05/16 at 09:00 Miscellaneous Information 1 Q361D XX ; Start 07/04/16 at 22:45 Chlorhexidine Gluconate (Chlorhexidine 2% Cloth) 3 pack Taper DAILY@04 TOP Last administered on 07/08/16 03:37; Start 07/05/16 at 04:00; Stop 07/01/17 at 03:59 Chlorhexidine Gluconate 3 pack 3 pack UNSCH PRN TOP HYGIENIC CARE; Start at 22:45 Naloxone HCl/ Dextrose (Narcan Inj/D5W Inj) 250 ml @ 0 mls/hr TITRATE IV Last administered on 07/05/16 03:57; Start 07/04/16 at 23:00; Stop 07/08/16 at 06:18 ; Status DC Albumin Human (Albumin 25% Inj) 25 gm UNSCH X1 PRN IV see below; Start at 23:00; Stop 07/05/16 at 23:00; Status DC Iohexol (Omnipaque 300 Inj) 150 ml STK-MED ONCE OTHER Last administered on 07/04 22:04; Start 07/04/16 at 22:04; Stop 07/04/16 at 23:40; Status DC Fentanyl Citrate (fentaNYL INJ) 250 mcg STK-MED ONCE .ROUTE ; Start 07/05/16 at 00:10; Stop 07/05/16 at 00:11; Status DC Sodium Bicarbonate 50 meq 50 meq STK-MED ONCE .ROUTE ; Start 07/05/16 at 00:36; Stop 07/05/16 at 00:37; Status DC Sodium Bicarbonate/ Dextrose (Sodium Bicarbonate 8.4% Inj/D5W 1000 ml Inj) 1, 150 ml @ 100 mls/hr [id number] IV Last administered on 07/05/16 23:28; Start at 00:45; Stop 07/06/16 at 09:21; Status DC Albumin Human (Albumin 5% Inj) 25 gm ONCE ONCE IV Last administered on 02:44; Start 07/05/16 at 00:45; Stop 07/05/16 at 00:46; Status DC Sodium Bicarbonate (Sodium Bicarbonate 8.4% Inj) 100 meq ONCE ONCE IV PUSH Last administered on 07/05/16 01:15; Start 07/05/16 at 01:15; Stop 07/05/16 at 01:16; Status DC Heparin Sodium (Porcine) 5000 units 5,000 units Q12HR SQ Last administered on 19:18; Start 07/05/16 at 21:00; Status Hold Norepinephrine Bitartrate 250 ml @ As Directed STK-MED ONCE IV ; Start at 17:58; Stop 07/05/16 at 17:59; Status DC Norepinephrine Bitartrate (Levophed-Dextrose Drip) 250 ml @ 0 mls/hr TITRATE IV Last administered on 07/08/16 05:26; Start 07/05/16 at 18:30 Midazolam HCl 2 mg 2 mg Q1H PRN IV PUSH agitation Last administered on 12:07; Start 07/05/16 at 22:30; Stop 07/06/16 at 13:24; Status DC Sodium Chloride 1,000 ml @ 999 mls/hr Q1H1M ONCE IV Last administered on 01:00; Start 07/06/16 at 01:00; Stop 07/06/16 at 02:00; Status DC Sodium Chloride 999 ml @ 0 mls/hr BOLUS ONCE IV Last administered on 04:00; Start 07/06/16 at 04:00; Stop 07/06/16 at 04:01; Status DC Calcium Gluconate/ Sodium Chloride (Calcium Gluconate Inj/NS Inj) 130 ml @ 120 mls/hr ONCE ONCE IV Last administered on 07/06/16 07:00; Start 07/06/16 at 06 :15; Stop 07/06/16 at 07:19; Status DC Haloperidol Lactate (Haldol Inj) 5 mg Q4H PRN IV agitation Last administered on 07/06/16 14:04; Start 07/06/16 at 13:30 Lorazepam (Ativan Inj) 1 mg Q15M PRN IV PUSH severe agitation/withdraw sxs Last administered on 07/06/16 14:05; Start 07/06/16 at 13:30 Melatonin (Melatonin) 5 mg HS PO Last administered on 07/07/16 19:18; Start at 21:00 Nitroglycerin (Nitrostat Sl) 0.3 mg ONCE ONCE SL Last administered on 14:00; Start 07/06/16 at 14:00; Stop 07/06/16 at 14:01; Status DC Nitroglycerin (Nitrostat Sl) 0.4 mg STK-MED ONCE SL ; Start 07/06/16 at 13:43; Stop 07/06/16 at 13:44; Status DC Fentanyl Citrate (fentaNYL INJ) 25 mcg Q30M PRN IV PUSH pain 3-10 or not taking po Last administered on 07/07/16 09:03; Start 07/06/16 at 13:45 Fentanyl Citrate (fentaNYL INJ) 100 mcg STK-MED ONCE .ROUTE ; Start 07/06/16 at 13:57; Stop 07/06/16 at 13:58; Status DC Ziprasidone 10 mg 10 mg ONCE ONCE IM Last administered on 07/06/16 15:00; Start 07/06/16 at 15:00; Stop 07/06/16 at 15:01; Status DC Sodium Chloride (NS 1000 ml Inj) 999 ml @ 0 mls/hr BOLUS ONCE IV Last administered on 07/06/16 22:03; Start 07/06/16 at 22:00; Stop 07/06/16 at 22:01 ; Status DC Etomidate 20 mg 20 mg ONCE ONCE IV PUSH Last administered on 07/06/16 22:54; Start 07/06/16 at 22:45; Stop 07/06/16 at 22:46; Status DC Propofol 100 ml @ 0 mls/hr TITRATE IV Last administered on 07/07/16 20:28; Start 07/06/16 at 22:45 Fentanyl Citrate 250 ml @ 0 mls/hr TITRATE IV ; Start 07/06/16 at 22:45 Propofol (Diprivan 1000 Mg/100ml Inj) 100 ml @ As Directed STK-MED ONCE .ROUTE ; Start 07/06/16 at 22:32; Stop 07/06/16 at 22:33; Status DC Etomidate (Amidate Inj) 20 mg STK-MED ONCE .ROUTE ; Start 07/06/16 at 22:33; Stop 07/06/16 at 22:34; Status DC Quetiapine Fumarate (SEROquel) 100 mg Q8HR PO Last administered on 07/08/16 05 :05; Start 07/07/16 at 07:30 Tizanidine HCl (Zanaflex) 2 mg Q12HR PO Last administered on 07/08/16 09:50; Start 07/07/16 at 09:00 Diazepam (Valium) 10 mg Taper Q8HR PO Last administered on 07/08/16 05:05; Start 07/07/16 at 07:30; Stop 07/15/16 at 07:29 Calcium Acetate (Phoslo) 2,668 mg TID PO Last administered on 07/08/16 09:50; Start 07/07/16 at 09:00 Miscellaneous 1 ea 1 ea UNSCH PRN OTHER SEE LABEL COMMENTS; Start 07/07/16 at 07:30 Sodium Chloride (NS 250 ml Inj) 250 ml @ 15 mls/hr ONCE ONCE IV Last administered on 07/08/16 07:11; Start 07/08/16 at 06:30; Stop 07/08/16 at 23:09 Active Ordered Medications Current Medications Esmolol HCl/ Sodium Chloride 250 ml @ 0 mls/hr TITRATE IV ; Start 07/04/16 at 19 :15; Stop 07/05/16 at 12:28; Status DC Nicardipine HCl/ Sodium Chloride (Cardene Inj/NS 250 ml Inj) 250 ml @ 0 mls/hr TITRATE IV Last administered on 07/05/16 08:43; Start 07/04/16 at 19:15; Stop 07/05/16 at 12:28; Status DC Labetalol HCl (Trandate Inj) 20 mg Q15M PRN IV SEE COMMENTS; Start 07/04/16 at 19:15 Hydralazine HCl (Apresoline Inj) 10 mg Q15M PRN IV SEE COMMENTS Last administered on 07/06/16 14:04; Start 07/04/16 at 19:15 Metoprolol Tartrate 5 mg 5 mg Q5M PRN IV PUSH SEE COMMENTS Last administered on 07/07/16 12:54; Start 07/04/16 at 19:30 Propofol 100 ml @ 0 mls/hr TITRATE IV Last administered on 07/06/16 08:32; Start 07/04/16 at 19:30; Stop 07/06/16 at 13:23; Status DC Fentanyl Citrate (fentaNYL DRIP) 250 ml @ 0 mls/hr TITRATE IV Last administered on 07/06/16 07:01; Start 07/04/16 at 19:30; Stop 07/06/16 at 13:23 ; Status DC Epinephrine HCl (EPINEPHrine (1:10,000) INJ) 1 mg STK-MED ONCE .ROUTE ; Start at 19:34; Stop 07/04/16 at 19:35; Status DC Atropine Sulfate (Atropine Inj) 1 mg STK-MED ONCE .ROUTE ; Start 07/04/16 at 19: 34; Stop 07/04/16 at 19:35; Status DC Lidocaine HCl (Xylocaine 2% Inj) 100 mg STK-MED ONCE .ROUTE ; Start 07/04/16 at 19:34; Stop 07/04/16 at 19:35; Status DC Iohexol (Omnipaque 350 Inj) 100 ml STK-MED ONCE IV Last administered on 19:58; Start 07/04/16 at 19:58; Stop 07/04/16 at 19:59; Status DC Bupivacaine HCl/ Epinephrine Bitart (Sensorcaine-Epinephrine Pf 0.5% Inj) 30 ml STK-MED ONCE .ROUTE ; Start 07/04/16 at 20:21; Stop 07/04/16 at 20:22; Status DC Thrombin (Thrombin Top Soln) 10,000 units STK-MED ONCE .ROUTE ; Start 07/04/16 at 20:21; Stop 07/04/16 at 20:22; Status DC Gelatin (Gelfoam 100 Top) 1 foam STK-MED ONCE .ROUTE ; Start 07/04/16 at 20:21; Stop 07/04/16 at 20:22; Status DC Cefazolin Sodium (Ancef Inj) 2,000 mg STK-MED ONCE .ROUTE Last administered on 07/04/16 22:03; Start 07/04/16 at 20:22; Stop 07/04/16 at 20:23; Status DC Heparin Sodium (Porcine) (Heparin Inj) 60,000 units STK-MED ONCE .ROUTE ; Start 07/04/16 at 20:22; Stop 07/04/16 at 20:23; Status DC Protamine Sulfate (Protamine Sulfate Inj) 100 mg STK-MED ONCE .ROUTE ; Start at 20:22; Stop 07/04/16 at 20:23; Status DC Heparin Sodium (Porcine) 63366 units 20,000 units STK-MED ONCE .ROUTE Last administered on 07/04/16 22:04; Start 07/04/16 at 20:38; Stop 07/04/16 at 20:39 ; Status DC Methylprednisolone Sodium Succinate/ Sodium Chloride (SoluMEDROL INJ/ NS 250 ml Inj) 290 ml @ 580 mls/hr ONCE ONCE IV ; Start 07/04/16 at 21:30; Stop at 21:59; Status DC Magnesium Oxide 800 mg 800 mg UNSCH PRN PO For Magnesium 1.2 - 1.6 mg/dL; Start 07/04/16 at 22:45; Stop 07/06/16 at 09:16; Status DC Magnesium Sulfate 4 gm/Sodium Chloride 100 ml @ 50 mls/hr UNSCH PRN IV For Magnesium 0.9 - 1.1 mg/dL; Start 07/04/16 at 22:45; Stop 07/06/16 at 09:15; Status DC Magnesium Sulfate 2 gm/Sodium Chloride 100 ml @ 50 mls/hr UNSCH PRN IV For Magnesium 1.2 - 1.6 mg/dL; Start 07/04/16 at 22:45; Stop 07/06/16 at 09:16; Status DC Potassium Chloride 100 ml @ 50 mls/hr Q2H PRN IV For Potassium 2.8 - 3.2 mEq/L ; Start 07/04/16 at 22:45; Stop 07/06/16 at 09:16; Status DC Potassium Chloride 100 ml @ 50 mls/hr Q2H PRN IV For Potassium 3.3 - 3.5 mEq/L ; Start 07/04/16 at 22:45; Stop 07/06/16 at 09:16; Status DC Potassium Chloride 100 ml @ 50 mls/hr Q2H PRN IV For Potassium 2.8 - 3.2 mEq/L ; Start 07/04/16 at 22:45; Stop 07/06/16 at 09:16; Status DC Potassium Chloride (KCl 40 Meq Premix Inj) 100 ml @ 25 mls/hr UNSCH PRN IV For Potassium 3.3 - 3.5 mEq/L Last administered on 07/05/16t 08:43; Start at 22:45; Stop 07/06/16 at 09:16; Status DC Potassium Phosphate (K-Phos) 2,000 mg Q4H PRN PO For Phosphorus < 2.5 mg/dL; Start 07/04/16 at 22:45; Stop 07/06/16 at 09:16; Status DC Potassium Phosphate 2000 mg 2,000 mg UNSCH PRN PO/TUBE SEE LABEL COMMENTS; Start 07/04/16 at 22:45; Stop 07/06/16 at 09:16; Status DC Potassium Phosphate 30 mmol/ Sodium Chloride 260 ml @ 42 mls/hr UNSCH PRN IV SEE LABEL COMMENTS; Start 07/04/16 at 22:45; Stop 07/06/16 at 09:16; Status DC Sodium Phosphate/ Sodium Chloride (Sodium Phosphate Inj/NS 250 ml Inj) 250 ml @ 42 mls/hr UNSCH PRN IV For Phosphorus < 2.5 mg/dL; Start 07/04/16 at 22:45; Stop 07/06/16 at 09:16; Status DC Chlorhexidine Gluconate (Peridex 0.12% Liq) 15 ml BID@08,20 MT Last administered on 07/08/16 08:00; Start 07/05/16 at 08:00 Dextrose (D50w (Vial) Inj) 25 ml UNSCH PRN IV PUSH HYPOGLYCEMIA-SEE COMMENTS; Start 07/04/16 at 22:45 Insulin Human Regular 1 1 Q6HR SQ Last administered on 07/08/16 05:06; Start 07/05/16 at 00:00 Thiamine HCl/ Sodium Chloride (Thiamine Inj/NS Inj) 101 ml @ 101 mls/hr Q24H IV Last administered on 07/06/16 01:11; Start 07/05/16 at 02:00; Stop at 02:59; Status DC Thiamine HCl 100 mg 100 mg DAILY PO Last administered on 07/08/16 09:50; Start 07/08/16 at 09:00 Multivitamins/ Thiamine HCl/ Folic Acid/Sodium Chloride (Mvi-12 Inj/ Thiamine Inj/ Folvite Inj/1/2 NS 500 ml Inj) 511.2 ml @ 125 mls/hr ONCE ONCE IV Last administered on 07/05/16 02:05; Start 07/04/16 at 23:00; Stop 07/05/16 at 03:05 ; Status DC Multivitamins (Theragran) 1 tab DAILY PO Last administered on 07/08/16 09:50; Start 07/05/16 at 09:00 Albuterol/ Ipratropium (Duoneb Neb) 1 ampule Q6HR NEB INH Last administered on 07/08/16 08:32; Start 07/05/16 at 04:00 Albuterol/ Ipratropium 1 ampule 1 ampule Q2HR NEB PRN INH WHEEZING; Start 07/04 at 22:45 Sodium Chloride (NS 1000 ml Inj) 1,000 ml @ 100 mls/hr Q10H IV ; Start at 23:00; Stop 07/05/16 at 00:42; Status DC Sodium Chloride (NS Flush) 2 ml UNSCH PRN IV FLUSH FLUSH AFTER USING IV ACCESS ; Start 07/04/16 at :45 Sodium Chloride (NS Flush) 2 ml BID IV FLUSH Last administered on 07/08/16 09: 00; Start 07/05/16 at 09:00 Acetaminophen (Tylenol) 650 mg Q6H PRN PO PAIN 1-10 AND/OR FEVER >101F; Start 07/04/16 at 22:45 Pantoprazole Sodium (Protonix Inj) 40 mg DAILY IV Last administered on 09:49; Start 07/05/16 at 09:00 Ondansetron HCl (Zofran Inj) 4 mg Q6H PRN IV NAUSEA OR VOMITING; Start at 22:45 Senna/Docusate Sodium (Stephie-Colace) 2 tab BID PO Last administered on 09:00; Start 07/05/16 at 09:00 Miscellaneous Information 1 Q361D XX ; Start 07/04/16 at 22:45 Chlorhexidine Gluconate (Chlorhexidine 2% Cloth) 3 pack Taper DAILY@04 TOP Last administered on 07/08/16 03:37; Start 07/05/16 at 04:00; Stop 07/01/17 at 03:59 Chlorhexidine Gluconate 3 pack 3 pack UNSCH PRN TOP HYGIENIC CARE; Start at 22:45 Naloxone HCl/ Dextrose (Narcan Inj/D5W Inj) 250 ml @ 0 mls/hr TITRATE IV Last administered on 07/05/16 03:57; Start 07/04/16 at 23:00; Stop 07/08/16 at 06:18 ; Status DC Albumin Human (Albumin 25% Inj) 25 gm UNSCH X1 PRN IV see below; Start at 23:00; Stop 07/05/16 at 23:00; Status DC Iohexol (Omnipaque 300 Inj) 150 ml STK-MED ONCE OTHER Last administered on 07/04 22:04; Start 07/04/16 at 22:04; Stop 07/04/16 at 23:40; Status DC Fentanyl Citrate (fentaNYL INJ) 250 mcg STK-MED ONCE .ROUTE ; Start 07/05/16 at 00:10; Stop 07/05/16 at 00:11; Status DC Sodium Bicarbonate 50 meq 50 meq STK-MED ONCE .ROUTE ; Start 07/05/16 at 00:36; Stop 07/05/16 at 00:37; Status DC Sodium Bicarbonate/ Dextrose (Sodium Bicarbonate 8.4% Inj/D5W 1000 ml Inj) 1, 150 ml @ 100 mls/hr [id number] IV Last administered on 07/05/16 23:28; Start at 00:45; Stop 07/06/16 at 09:21; Status DC Albumin Human (Albumin 5% Inj) 25 gm ONCE ONCE IV Last administered on 02:44; Start 07/05/16 at 00:45; Stop 07/05/16 at 00:46; Status DC Sodium Bicarbonate (Sodium Bicarbonate 8.4% Inj) 100 meq ONCE ONCE IV PUSH Last administered on 07/05/16 01:15; Start 07/05/16 at 01:15; Stop 07/05/16 at 01:16; Status DC Heparin Sodium (Porcine) 5000 units 5,000 units Q12HR SQ Last administered on 19:18; Start 07/05/16 at 21:00; Status Hold Norepinephrine Bitartrate 250 ml @ As Directed STK-MED ONCE IV ; Start at 17:58; Stop 07/05/16 at 17:59; Status DC Norepinephrine Bitartrate (Levophed-Dextrose Drip) 250 ml @ 0 mls/hr TITRATE IV Last administered on 07/08/16 05:26; Start 07/05/16 at 18:30 Midazolam HCl 2 mg 2 mg Q1H PRN IV PUSH agitation Last administered on 12:07; Start 07/05/16 at 22:30; Stop 07/06/16 at 13:24; Status DC Sodium Chloride 1,000 ml @ 999 mls/hr Q1H1M ONCE IV Last administered on 01:00; Start 07/06/16 at 01:00; Stop 07/06/16 at 02:00; Status DC Sodium Chloride 999 ml @ 0 mls/hr BOLUS ONCE IV Last administered on 04:00; Start 07/06/16 at 04:00; Stop 07/06/16 at 04:01; Status DC Calcium Gluconate/ Sodium Chloride (Calcium Gluconate Inj/NS Inj) 130 ml @ 120 mls/hr ONCE ONCE IV Last administered on 07/06/16 07:00; Start 07/06/16 at 06 :15; Stop 07/06/16 at 07:19; Status DC Haloperidol Lactate (Haldol Inj) 5 mg Q4H PRN IV agitation Last administered on 07/06/16 14:04; Start 07/06/16 at 13:30 Lorazepam (Ativan Inj) 1 mg Q15M PRN IV PUSH severe agitation/withdraw sxs Last administered on 07/06/16 14:05; Start 07/06/16 at 13:30 Melatonin (Melatonin) 5 mg HS PO Last administered on 07/07/16 19:18; Start at 21:00 Nitroglycerin (Nitrostat Sl) 0.3 mg ONCE ONCE SL Last administered on 14:00; Start 07/06/16 at 14:00; Stop 07/06/16 at 14:01; Status DC Nitroglycerin (Nitrostat Sl) 0.4 mg STK-MED ONCE SL ; Start 07/06/16 at 13:43; Stop 07/06/16 at 13:44; Status DC Fentanyl Citrate (fentaNYL INJ) 25 mcg Q30M PRN IV PUSH pain 3-10 or not taking po Last administered on 07/07/16 09:03; Start 07/06/16 at 13:45 Fentanyl Citrate (fentaNYL INJ) 100 mcg STK-MED ONCE .ROUTE ; Start 07/06/16 at 13:57; Stop 07/06/16 at 13:58; Status DC Ziprasidone 10 mg 10 mg ONCE ONCE IM Last administered on 07/06/16 15:00; Start 07/06/16 at 15:00; Stop 07/06/16 at 15:01; Status DC Sodium Chloride (NS 1000 ml Inj) 999 ml @ 0 mls/hr BOLUS ONCE IV Last administered on 07/06/16 22:03; Start 07/06/16 at 22:00; Stop 07/06/16 at 22:01 ; Status DC Etomidate 20 mg 20 mg ONCE ONCE IV PUSH Last administered on 07/06/16 22:54; Start 07/06/16 at 22:45; Stop 07/06/16 at 22:46; Status DC Propofol 100 ml @ 0 mls/hr TITRATE IV Last administered on 07/07/16 20:28; Start 07/06/16 at 22:45 Fentanyl Citrate 250 ml @ 0 mls/hr TITRATE IV ; Start 07/06/16 at 22:45 Propofol (Diprivan 1000 Mg/100ml Inj) 100 ml @ As Directed STK-MED ONCE .ROUTE ; Start 07/06/16 at 22:32; Stop 07/06/16 at 22:33; Status DC Etomidate (Amidate Inj) 20 mg STK-MED ONCE .ROUTE ; Start 07/06/16 at 22:33; Stop 07/06/16 at 22:34; Status DC Quetiapine Fumarate (SEROquel) 100 mg Q8HR PO Last administered on 07/08/16 05 :05; Start 07/07/16 at 07:30 Tizanidine HCl (Zanaflex) 2 mg Q12HR PO Last administered on 07/08/16 09:50; Start 07/07/16 at 09:00 Diazepam (Valium) 10 mg Taper Q8HR PO Last administered on 07/08/16 05:05; Start 07/07/16 at 07:30; Stop 07/15/16 at 07:29 Calcium Acetate (Phoslo) 2,668 mg TID PO Last administered on 07/08/16 09:50; Start 07/07/16 at 09:00 Miscellaneous 1 ea 1 ea UNSCH PRN OTHER SEE LABEL COMMENTS; Start 07/07/16 at 07:30 Sodium Chloride (NS 250 ml Inj) 250 ml @ 15 mls/hr ONCE ONCE IV Last administered on 07/08/16 07:11; Start 07/08/16 at 06:30; Stop 07/08/16 at 23:09 Family History Unobtainable from patient currently. Social History Of substance abuse as indicated above. History of noncompliance medically. Physical Exam Vital Signs Vital Signs Date Time Temp Pulse Resp B/P Pulse Ox O2 Delivery O2 Flow Rate FiO2 07/08/16 08:32 97 40 07/08/16 06:00 62 07/08/16 06:00 155/54 07/08/16 04:00 56 07/08/16 04:00 40 07/08/16 04:00 97.0 56 19 156/50 99 07/08/16 04:00 156/50 07/08/16 03:14 100 40 07/08/16 02:00 159/54 07/08/16 02:00 54 07/08/16 00:00 40 07/08/16 00:00 156/50 07/08/16 00:00 96.7 55 18 156/50 99 07/08/16 00:00 55 07/07/16 22:45 97 40 07/07/16 22:00 158/52 07/07/16 22:00 59 07/07/16 20:00 154/51 07/07/16 20:00 53 07/07/16 20:00 40 07/07/16 20:00 97.0 54 18 154/51 96 07/07/16 19:47 95 40 07/07/16 19:00 98 Mechanical Ventilator 40 07/07/16 18:00 157/85 07/07/16 18:00 62 07/07/16 16:00 62 07/07/16 16:00 149/55 07/07/16 16:00 40 07/07/16 16:00 97.0 62 18 149/55 99 07/07/16 15:14 99 40 07/07/16 14:00 151/56 07/07/16 14:00 61 07/07/16 12:58 100 40 07/07/16 12:00 180/65 07/07/16 12:00 40 07/07/16 12:00 82 07/07/16 12:00 96.9 82 18 180/65 98 Physical Exam GENERAL: Patient appears older than stated age. SKIN: Warm and dry. HEAD: Normocephalic. EYES: No scleral icterus. No injection or drainage. NECK: Supple, trachea midline. No JVD or lymphadenopathy. CARDIOVASCULAR: Regular rate and rhythm without murmurs, gallops, or rubs. RESPIRATORY: Breath sounds equal bilaterally. No accessory muscle use. GASTROINTESTINAL: Abdomen soft, non-tender, nondistended. MUSCULOSKELETAL: No cyanosis, trace edema lower external nares. Dressings not disturbed. BACK: Nontender without obvious deformity. No CVA tenderness. Laboratory Laboratory Tests Test 07/08/16 07/08/16 07/08/16 03:45 06:34 09:20 White Blood Count 12.4 12.1 Red Blood Count 2.82 2.74 Hemoglobin 9.1 9.1 Hematocrit 25.9 25.1 Mean Corpuscular Volume 91.8 91.6 Mean Corpuscular Hemoglobin 32.1 33.0 Mean Corpuscular Hemoglobin 34.9 36.1 Concent Red Cell Distribution Width 13.4 13.6 Platelet Count 66 100 Mean Platelet Volume 11.3 10.7 Prothrombin Time 11.8 Prothromb Time International 1.1 Ratio Activated Partial 31.8 Thromboplast Time Sodium Level 134 Potassium Level 4.4 Chloride Level 97 Carbon Dioxide Level 23.2 Anion Gap 14 Blood Urea Nitrogen 80 Creatinine 4.75 Estimat Glomerular Filtration 13 Rate Random Glucose 157 Calcium Level 7.7 Phosphorus Level 6.3 Magnesium Level 2.6 Total Bilirubin 1.1 Direct Bilirubin 0.8 Indirect Bilirubin 0.3 Aspartate Amino Transf 163 (AST/SGOT) Alanine Aminotransferase 69 (ALT/SGPT) Alkaline Phosphatase 62 Total Protein 6.0 Albumin 2.5 Blood Bank Comment Result Diagram: 07/08/16 0920 07/08/16 0345 Imaging Last 48 hours Impressions Chest X-Ray 07/07/16 0600 Signed Impressions: Service Date/Time: Thursday, July 07, 2016 04:38 - CONCLUSION: 1. New bibasilar infiltrates. Joe Appiah Jr., MD Assessment and Plan Problem List: (1) Acute kidney insufficiency Plan: Patient most likely has sustained severe ischemic injuries to both kidneys as a result of dissection involving renal arteries. Patient may have acute tubular necrosis but may have also sustained a cortical necrosis of one or both kidneys. Azotemia will likely progress in which case dialysis may have to be considered. Await results of duplex of the kidneys. Medications should be adjusted for the patient's estimated GFR if clinically indicated. Avoid agents with significant potential for nephrotoxicity possible including NSAIDs for analgesia, iodine contrast agents if possible. Gadolinium is contraindicated if the GFR is below 30. (2) Hepatitis C Plan: Not playing a role as far as his acute renal failure is concerned in this setting. (3) HTN (hypertension) (4) Hyperphosphatemia Plan: Secondary to renal failure. Noted phosphate binder started. Eufemia Walters MD Jul 08, 2016 11:06
--- NOTE | 2016-07-08 15:22 | ECHLIM ---
Study Study Date:07/08/2016 STUDY CONCLUSIONS SUMMARY - Left ventricle: The cavity size was normal. Wall thickness was increased increased in a pattern of mild to moderate LVH. There was concentric hypertrophy. Systolic function was normal. The estimated ejection fraction was in the range of 60% to 65%. The study is not technically sufficient to allow evaluation of LV diastolic function. - Mitral valve: Mild regurgitation. - Left atrium: The atrium was mildly dilated. - Pulmonary arteries: PA peak pressure: 49mm Hg (S). If LV function is below 40, please consider prescribing an ACEI or ARB or document rationale for non-use. PROCEDURE DATA Procedure: Transthoracic echocardiography. Image quality was good. Scanning was performed from the parasternal, apical, and subcostal acoustic windows. Study completion: The patient tolerated the procedure well. Transthoracic echocardiography. M-mode, limited 2D, limited spectral Doppler, and color Doppler. CARDIAC ANATOMY LEFT VENTRICLE: The cavity size was normal. Wall thickness was increased increased in a pattern of mild to moderate LVH. There was concentric hypertrophy. Systolic function was normal. The estimated ejection fraction was in the range of 60% to 65%. The study is not technically sufficient to allow evaluation of LV diastolic function. AORTIC VALVE: Mildly calcified leaflets. Doppler: There was no stenosis. No significant regurgitation. Peak gradient: 16mm Hg (S). MITRAL VALVE: Mildly thickened leaflets, . Doppler: There was no evidence for stenosis. Mild regurgitation. Peak gradient: 3mm Hg (D). LEFT ATRIUM: The atrium was mildly dilated. PULMONIC VALVE: Not well visualized. Doppler: There was no evidence for stenosis. Trace regurgitation. TRICUSPID VALVE: The valve appears to be grossly normal. Doppler: There was no evidence for stenosis. Trace regurgitation. PERICARDIUM: There was no pericardial effusion. BASIC MEASUREMENTS ADULT Normal Left ventricle LV internal dimension, ED, chordal level, *57.1 mm 43-52 PLAX LV posterior wall thickness, ED 6.5 mm IVS/LVPW ratio, ED *2.23 <1.3 Ventricular septum Septal thickness, ED 14.5 mm Left atrium Anterior-posterior dimension 42 mm Right ventricle RV internal dimension, ED, PLAX 24.8 mm 19-38 DOPPLER MEASUREMENTS ADULT Normal Main pulmonary artery Pressure, S *49 mm Hg =30 Aortic valve Peak velocity, S 201 cm/s Peak gradient, S 16 mm Hg Mitral valve Peak E-wave velocity 82.3 cm/s Peak A-wave velocity 63.1 cm/s Peak gradient, D 3 mm Hg Peak E/A ratio 1.3 Maximal regurgitant velocity 556 cm/s Tricuspid valve Regurgitant peak velocity 293 cm/s Peak RV-RA gradient, S 34 mm Hg Maximal regurgitant velocity 293 cm/s Systemic veins Estimated CVP 15 mm Hg Right ventricle RV pressure, S *49 mm Hg <30 LEGEND: Mean values are shown as u=mean value. Asterisk (*) trujillo values outside specified normal range. Prepared and signed by John Ryder [id number]
--- NOTE | 2016-07-08 15:59 | MP ---
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 PROCEDURE: 1. Thoracic endovascular stent. 2. Intravascular ultrasound of the aorta. 3. Left lower extremity fasciotomies (four compartment, two incisions). ATTENDING SURGEON Yuridia Long MD ANESTHESIA General. INDICATIONS Mr. Trujillo is a 60-year-old gentleman who presented to an outside hospital with acute back pain. He was diagnosed to have an acute type B aortic dissection with renal and visceral malperfusion and was transferred here emergently. Prior to transfer he was emergently intubated and upon arrival he was intubated but CT scan suggested he had visceral, renal and left lower extremity malperfusion. On physical examination he was intubated and sedated but his left lower extremity was cool and clearly frankly ischemic. After discussion with the patient and his legal next of kin who is his brother, we offered him a thoracic endovascular aortic repair and potential intervention. DESCRIPTION OF PROCEDURE Informed consent was obtained from the patient's brother as the patient is intubated. He was taken to the operating room emergently and appropriate timeout was taken that showed the patient's identity, operative site and planned procedure. Then administration of 2 grams of Kefzol was initiated prior to skin incision and will be discontinued after single preop dose. Everyone in the room agreed with the timeout and we proceeded. He was prepped from his chin to his toes. A 21-gauge micropuncture needle was used to access the right common femoral artery, this was exchanged using Seldinger technique for micropuncture sheath for which a 0.035 Storq wire was introduced. The micropuncture sheath was exchanged for a 5-Kazakh sheath and the Storq wire was advanced all the way in the ascending aorta. This was our first clue that were indeed in the true lumen from the common femoral artery at the base and aorta. The 5-Kazakh sheath was removed and two Perclose were introduced and tagged but not tied down. These will be used later. An 8-Kazakh sheath was introduced. Similarly on the left-hand side a 21-gauge micropuncture sheath was used to access the common femoral artery. This was exchanged using Seldinger technique following Contra sheath for which a 0.035 Glidewire was introduced and micropuncture sheath was exchanged for a 5-Kazakh sheath. At this point the patient was systemically heparinized and throughout the remainder of the case the ACT was kept greater than 250. The Storq wire on the right and Glidewire on the left were advanced to the ascending aorta, again providing clues that we were indeed in the true lumen throughout. Over the right-hand Storq wire a catheter was placed and the Storq was exchanged for a Lunderquist. Over the left-hand Glidewire a marker flush pigtail catheter was placed. An intravascular ultrasound catheter was placed over the right side of the Lunderquist and images of the aorta were obtained. This showed that the true lumen was indeed quite compressed but both the ipsilateral right-sided wire and the contralateral left-sided catheter were indeed in the true lumen. The great vessels including innominate carotid and left subclavian artery were identified as well as viscera and right renal arteries. The diameters were then selected based on IVUS. The IVUS catheter was removed, the 8-Kazakh sheath was removed. Javy dilator was used to dilate out the skin and subcutaneous tracks and arteriotomy and the main device which was a Medtronic Valiant 32 x 200 device was inserted. Interval angiography showed the location in the left subclavian artery and the device was deployed without difficulty. The delivery system was removed under fluoroscopic guidance and a 20-Kazakh Sentrant sheath was introduced over the Lunderquist wire. The IVUS catheter was then reintroduced. This showed that the paravisceral true lumen was still narrowed, however, the celiac artery was identified. The diameter at this location was 32.4 mm and as such a 34 mm device was selected. The IVUS catheter was removed. A 20-Kazakh Sentrant sheath was removed and the second device which was a Medtronic Valiant 34 x 150 was introduced. The distal part of the graft was placed above the celiac artery and the graft was deployed without difficulty. The delivery system was removed and again the 20-Kazakh Sentrant sheath was introduced. A Reliant balloon was used to balloon the junctions and an IVUS catheter was then reintroduced. This showed that there was significant expansion of the true lumen with perfusion of the celiac SMA and renal arteries. An angiogram showed excellent filling of the stent graft, perfusion of the head and neck vessels and perfusion of the SMA, celiac and left renal arteries. There was no filling of the right renal artery consistent with preoperative thrombosis. The left external iliac artery was filling as were the entire right-side. A contrast injection through the left-hand 5-Kazakh sheath confirmed the iliac artery was widely patent. There were Doppler signals in the left foot and to the left 5-Kazakh sheath and the catheter were removed and the groin was closed with AngioSeal. On the right-hand side the Sentrant sheath was removed over a Storq wire and the Perclose were tied down. Hemostasis was achieved in the groin. There were Doppler signals in both feet and the heparin was reversed with Protamine. The groin wounds were closed with Dermabond. Because of the prolonged left lower extremity ischemia, fasciotomy incisions were made on the medial aspect of the calf, carried down to subcutaneous tissue with electrocautery. The muscle fascia was divided and the fasciotomies were extended cephalad and caudally using Metzenbaum scissors. All four compartments were released. This was made hemostatic with manual pressure and wrapped in an Sandeep and Kerlix and Sandeep bandage. Sponge and needle counts were correct at the end of the case. I was present and scrubbed for the entire procedure. The patient was then transported to the ICU in critical condition. MD MARÍA ELENA Buck/JAQUELIN /11:41 PM /3:56 PM FLAVIO
[2016-07-08] MEDS ORDERED: HEPARIN SODIUM - SQ 10,000 UNITS/ML VIAL SQ SCH (20:00)
--- NOTE | 2016-07-08 20:07 | RADRPT ---
EXAM DATE/TIME: 07/08/2016 17:16 [facility] COMPARISON: No previous studies available for comparison. INDICATIONS : Increased BUN/creatinine with renal artery doppler. S/P aortic aneurysm repair. MEDICAL HISTORY : Hypertension. Aneurysm, abdominal. Hepatitis C. Ulcer. SURGICAL HISTORY : Abdominal aortic aneurysm repair. ENCOUNTER: Initial ACUITY: 1 day PAIN SCORE: Nonresponsive. LOCATION: Bilateral flank PEAK FLOW VELOCITIES (cm/sec): AORTA: 123 PROXIMAL: 45 MID: 123 DISTAL: 34 RIGHT RENAL ARTERY: PROXIMAL: 49 MID: 45 DISTAL: 55 RENAL ARTERY RATIO: 0.4 ARCUATE ARTERY RESISTIVE INDEX: Upper: Nonvisualized Mid: Nonvisualized Lower: Nonvisualized LEFT RENAL ARTERY: PROXIMAL: 42 MID: 59 DISTAL: 44 RENAL ARTERY RATIO: 0.5 ARCUATE ARTERY RESISTIVE INDEX: Upper: 0.7 Mid: 0.8 Lower: 0.8 FINDINGS: Renal artery and vein mapping as listed above. CONCLUSION: 1. Resistive indices could not be obtained on the right side into the patient's body habitus and shad owing bowel gas. Left renal artery resistive indices are within normal limits. 2. No significant abdominal aortic aneurysm identified status post repair. 3. Probable 7 mm nonobstructing midpole right renal calculus. 4. Tiny left lower pole cyst measuring 1.5 cm. Hamlet Vinson MD on July 08, 2016 at 20:01 Board Certified Radiologist. This report was verified electronically.
[2016-07-08] MEDS: fentaNYL DRIP 250 ML IV SCH (20:50)
[2016-07-08] MEDS: PROPOFOL 1000 MG/100 ML INJ 100 ML IV SCH (20:51)
[2016-07-08] MEDS: HEPARIN SODIUM - SQ 10,000 UNITS/ML VIAL SQ SCH (20:51)
[2016-07-08] MEDS: MELATONIN 5 MG TAB PO SCH (20:53)
--- NOTE | 2016-07-08 21:04 | PD.CARD.PN ---
Subjective Subjective Remarks Intubated, sedated Objective Medications Current Medications Medications (Trade) Dose Ordered Sig/Sascha Route Start Time Stop Time Status Last Admin (Trandate Inj) 20 mg Q15M PRN IV 07/04/16 19:15 (Apresoline Inj) 10 mg Q15M PRN IV 07/04/16 19:15 07/06/16 14:04 (Lopressor Inj) 5 mg Q5M PRN IV PUSH 07/04/16 19:30 07/07/16 12:54 (Peridex 0.12% Liq) 15 ml BID@08,20 MT 07/05/16 08:00 07/08/16 20:52 (D50w (Vial) Inj) 25 ml UNSCH PRN IV PUSH 07/04/16 22:45 (NovoLIN R SUPPLEMENTAL SCALE) 1 Q6HR SQ 07/05/16 00:00 07/08/16 18:00 (Vitamin B1) 100 mg DAILY PO 07/08/16 09:00 07/08/16 09:50 (Theragran) 1 tab DAILY PO 07/05/16 09:00 07/08/16 09:50 (NS Flush) 2 ml UNSCH PRN IV FLUSH 07/04/16 22:45 (NS Flush) 2 ml BID IV FLUSH 07/05/16 09:00 07/08/16 20:53 (Tylenol) 650 mg Q6H PRN PO 07/04/16 22:45 (Protonix Inj) 40 mg DAILY IV 07/05/16 09:00 07/08/16 09:49 (Zofran Inj) 4 mg Q6H PRN IV 07/04/16 22:45 (Stephie-Colace) 2 tab BID PO 07/05/16 09:00 07/08/16 20:52 Miscellaneous Information 1 Q361D XX 07/04/16 22:45 (Chlorhexidine 2% Cloth) 3 pack Taper DAILY@04 TOP 07/05/16 04:00 07/01/17 03:59 07/08/16 03:37 Chlorhexidine Gluconate 3 pack 3 pack UNSCH PRN TOP 07/04/16 22:45 (Levophed-Dextrose Drip) 250 ml @ 0 mls/hr TITRATE IV 07/05/16 18:30 07/08/16 20:51 (Haldol Inj) 5 mg Q4H PRN IV 07/06/16 13:30 07/06/16 14:04 (Ativan Inj) 1 mg Q15M PRN IV PUSH 07/06/16 13:30 07/06/16 14:05 (Melatonin) 5 mg HS PO 07/06/16 21:00 07/08/16 20:53 Fentanyl Citrate 25 mcg 25 mcg Q30M PRN IV PUSH 07/06/16 13:45 07/07/16 09:03 Propofol 100 ml @ 0 mls/hr TITRATE IV 07/06/16 22:45 07/08/16 20:51 (fentaNYL DRIP) 250 ml @ 0 mls/hr TITRATE IV 07/06/16 22:45 07/08/16 20:50 (SEROquel) 100 mg Q8HR PO 07/07/16 07:30 07/08/16 20:52 (Zanaflex) 2 mg Q12HR PO 07/07/16 09:00 07/08/16 20:52 (Valium) 10 mg Taper Q8HR PO 07/07/16 07:30 07/15/16 07:29 07/08/16 20:52 (Phoslo) 2,668 mg TID PO 07/07/16 09:00 07/08/16 18:40 Miscellaneous 1 ea 1 ea UNSCH PRN OTHER 07/07/16 07:30 (NS 250 ml Inj) 250 ml @ 15 mls/hr ONCE ONCE IV 07/08/16 06:30 07/08/16 23:09 07/08/16 07:11 (Heparin Inj) 5,000 units Q8H SQ 07/08/16 20:00 07/08/16 20:51 Vital Signs / I&O Vital Signs Date Time Temp Pulse Resp B/P Pulse Ox O2 Delivery O2 Flow Rate FiO2 07/08/16 19:55 96 40 07/08/16 18:00 64 07/08/16 18:00 160/60 07/08/16 16:00 178/59 07/08/16 16:00 58 07/08/16 16:00 97.8 58 18 178/59 99 07/08/16 16:00 40 07/08/16 15:42 99 40 07/08/16 14:00 62 07/08/16 14:00 164/57 07/08/16 12:24 96 40 07/08/16 12:00 170/64 07/08/16 12:00 66 07/08/16 12:00 40 07/08/16 12:00 97.5 66 18 170/64 96 07/08/16 10:00 66 07/08/16 10:00 154/54 07/08/16 08:32 97 40 07/08/16 08:00 65 07/08/16 08:00 159/57 07/08/16 08:00 40 07/08/16 08:00 97.5 64 18 159/57 97 07/08/16 07:00 Mechanical Ventilator 40 07/08/16 06:00 62 07/08/16 06:00 155/54 07/08/16 04:00 56 07/08/16 04:00 40 07/08/16 04:00 97.0 56 19 156/50 99 07/08/16 04:00 156/50 07/08/16 03:14 100 40 07/08/16 02:00 159/54 07/08/16 02:00 54 07/08/16 00:00 40 07/08/16 00:00 156/50 07/08/16 00:00 96.7 55 18 156/50 99 07/08/16 00:00 55 07/07/16 22:45 97 40 07/07/16 22:00 158/52 07/07/16 22:00 59 I/O 07/07/16 07/07/16 07/07/16 07/08/16 07/08/16 07/08/16 07:00 15:00 23:00 07:00 15:00 23:00 Intake Total 514 ml 430 ml 579 ml 790 ml 382 ml Output Total 183 ml 287 ml 120 ml 179 ml 233 ml Balance 331 ml 143 ml 459 ml 611 ml 149 ml Intake IV Total 514 ml 186 ml 227 ml 370 ml 282 ml Tube Feeding 184 ml 292 ml 360 ml 0 ml Tube Irrigant 60 ml 60 ml 60 ml 100 ml Output Urine Total 93 ml 275 ml 120 ml 179 ml 233 ml Tube Feeding Residual Discard 0 ml 0 ml Drainage Total 90 ml 12 ml 0 ml # Bowel Movements 0 Physical Exam GENERAL: Intubated, sedated SKIN: Warm and dry. HEAD: Normocephalic. EYES: No scleral icterus. No injection or drainage. NECK: Supple, trachea midline. No JVD or lymphadenopathy. CARDIOVASCULAR: Regular rate and rhythm without murmurs, gallops, or rubs. RESPIRATORY: Breath sounds equal bilaterally. No accessory muscle use. GASTROINTESTINAL: Abdomen soft, non-tender, nondistended. MUSCULOSKELETAL: No cyanosis, mild edema, good pedal perfusion Laboratory Laboratory Tests Test 07/08/16 07/08/16 07/08/16 03:45 06:34 09:20 White Blood Count 12.4 TH/MM3 12.1 TH/MM3 Red Blood Count 2.82 MIL/MM3 2.74 MIL/MM3 Hemoglobin 9.1 GM/DL 9.1 GM/DL Hematocrit 25.9 % 25.1 % Mean Corpuscular Volume 91.8 FL 91.6 FL Mean Corpuscular Hemoglobin 32.1 PG 33.0 PG Mean Corpuscular Hemoglobin 34.9 % 36.1 % Concent Red Cell Distribution Width 13.4 % 13.6 % Platelet Count 66 TH/MM3 100 TH/MM3 Mean Platelet Volume 11.3 FL 10.7 FL Prothrombin Time 11.8 SEC Prothromb Time International 1.1 RATIO Ratio Activated Partial 31.8 SEC Thromboplast Time Sodium Level 134 MEQ/L Potassium Level 4.4 MEQ/L Chloride Level 97 MEQ/L Carbon Dioxide Level 23.2 MEQ/L Anion Gap 14 MEQ/L Blood Urea Nitrogen 80 MG/DL Creatinine 4.75 MG/DL Estimat Glomerular Filtration 13 ML/MIN Rate Random Glucose 157 MG/DL Calcium Level 7.7 MG/DL Phosphorus Level 6.3 MG/DL Magnesium Level 2.6 MG/DL Total Bilirubin 1.1 MG/DL Direct Bilirubin 0.8 MG/DL Indirect Bilirubin 0.3 MG/DL Aspartate Amino Transf 163 U/L (AST/SGOT) Alanine Aminotransferase 69 U/L (ALT/SGPT) Alkaline Phosphatase 62 U/L Total Protein 6.0 GM/DL Albumin 2.5 GM/DL Blood Bank Comment Imaging Last Impressions Renal Ultrasound 07/08/16 0000 Signed Impressions: Service Date/Time: Friday, July 08, 2016 17:16 - CONCLUSION: 1. Resistive indices could not be obtained on the right side into the patient's body habitus and shadowing bowel gas. Left renal artery resistive indices are within normal limits. 2. No significant abdominal aortic aneurysm identified status post repair. 3. Probable 7 mm nonobstructing midpole right renal calculus. 4. Tiny left lower pole cyst measuring 1.5 cm. Hamlet Vinson MD Chest X-Ray 07/07/16 0600 Signed Impressions: Service Date/Time: Thursday, July 07, 2016 04:38 - CONCLUSION: 1. New bibasilar infiltrates. Joe Appiah Jr., MD Aorta CTA 07/04/16 0000 Signed Impressions: Service Date/Time: June 19:53 - CONCLUSION: 1. Extensive aortic dissection extending from the proximal transverse aorta just distal to the origin of the left subclavian artery. Dissection extends distally through both superficial femoral arteries. 2. Occlusion of the right renal artery with absent perfusion of the right kidney. Dissection of the left renal artery with absent perfusion of the anterior left kidney. 3. 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 4. Occlusion of left external iliac artery and right internal iliac artery. 5. ET tube in satisfactory position. Dependent consolidation in both lungs. Probable mild liver cirrhosis. No obstruction or free fluid. Russell catheter in decompressed bladder. See above discussion. 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 Wean vent as tolerated. Previous echo w preserved LV systolic fx and no segmental WMA. Echo today with well preserved LV systolic fx. No new cardiac issues. Nomi Mondragon MD Jul 08, 2016 21:03
[2016-07-09] VITALS (18 sets, daily range): BP systolic 147–178; BP diastolic 53–63; PULSE 50–60; RESP 18–28; TEMP 96.8–97.5; O2SAT 97–100
[2016-07-09] MEDS: INSULIN NovoLIN REGULAR SUPPLEMENTAL SCALE SQ SCH ×4 (00:37→18:00)
[2016-07-09] MEDS: RESP: ALBUTEROL 2.5 MG/IPRATROPIUM 0.5 MG NEB (SCH) INH ×4 (03:23→19:39)
[2016-07-09 04:29] LABS: HEMATOCRIT 24.8 % (39.0-51.0); MEAN CELL VOLUME 90.9 FL (80.0-100.0); MEAN CORPUSCULAR HEMOGLOBIN 31.7 PG (27.0-34.0); MEAN CORPUSCULAR HGB CONC 34.8 % (32.0-36.0); PLATELET COUNT 71 TH/MM3 (150-450); RED BLOOD COUNT 2.73 MIL/MM3 (4.50-5.90); RED CELL DISTRIBUTION WIDTH 13.4 % (11.6-17.2); WHITE BLOOD COUNT 11.9 TH/MM3 (4.0-11.0)
[2016-07-09 04:42] LABS: PROTHROMBIN TIME - PATIENT 11.4 SEC (9.8-11.6)
[2016-07-09 04:43] LABS: REVIEW FLAG FINAL
[2016-07-09] MEDS: CHLORHEXIDINE GLUCONATE 2 % 1 PACK (2 CLOTHS) TOP SCH (04:51)
[2016-07-09] MEDS: HEPARIN SODIUM - SQ 10,000 UNITS/ML VIAL SQ SCH ×3 (04:51→21:07)
[2016-07-09] MEDS: QUEtiapine FUMARATE 100 MG TAB PO SCH ×3 (05:01→21:06)
[2016-07-09] MEDS: DIAZEPAM 10 MG TAB PO SCH ×3 (05:02→21:06)
[2016-07-09 05:14] LABS: BICARBONATE 25.2 MEQ/L (21.0-32.0); INDIRECT BILIRUBIN 0.3 MG/DL (0.0-0.8); MAGNESIUM 2.9 MG/DL (1.5-2.5); POTASSIUM 4.7 MEQ/L (3.5-5.1); TOTAL BILIRUBIN ADULT 0.8 MG/DL (0.2-1.0)
[2016-07-09] MEDS: CHLORHEXIDINE 0.12% (ORAL KIT) 15 ML CUP MT SCH ×2 (08:00→20:00)
[2016-07-09] MEDS: DOCUSATE SODIUM 50 MG/SENNA 8.6 MG TAB PO SCH ×2 (09:00→21:08)
[2016-07-09] MEDS: SODIUM CHLORIDE 0.9% FLUSH 10 ML FLUSH IV FLUSH SCH ×2 (09:00→21:00)
[2016-07-09] MEDS: MULTIVITAMIN TAB PO SCH (09:51)
[2016-07-09] MEDS: CALCIUM ACETATE 667 MG CAP PO SCH ×3 (09:51→18:23)
[2016-07-09] MEDS: THIAMINE HCL 100 MG TAB PO SCH (09:51)
[2016-07-09] MEDS: PANTOPRAZOLE SODIUM 40 MG VIAL IV SCH (09:53)
--- NOTE | 2016-07-09 10:04 | PD.VS.PN ---
Subjective POD #: 5 Procedure(s): TEVAR, L LE fasciotomies for acute TBAD with visceral/renal/LLE malperfusion Subjective/Hospital Course stable overnight; continues to be neuro intact with spinal drain removed Objective Neuro: MENSAH, sedated appropriately Pulmonary: ventilated. Good sats Cardiac: reg rate, low dose levo for SBP goal augmentation for SCPP FEN/GI: TF at 40/h e'lytes ok : + UOP and over 40 in the past hour Less hematuria grossly Renal duplex yesterday showed patent RA bilaterally without significant stenosis ID Antibiotics(date/duration): WBC 12 afebrile ID Cultures: none Heme: Hct 25, stable Drains: none Laboratory Laboratory Tests Test 07/09/16 04:12 White Blood Count 11.9 Red Blood Count 2.73 Hemoglobin 8.7 Hematocrit 24.8 Mean Corpuscular Volume 90.9 Mean Corpuscular Hemoglobin 31.7 Mean Corpuscular Hemoglobin 34.8 Concent Red Cell Distribution Width 13.4 Platelet Count 71 Mean Platelet Volume 10.7 Prothrombin Time 11.4 Prothromb Time International 1.0 Ratio Activated Partial 28.0 Thromboplast Time Sodium Level 133 Potassium Level 4.7 Chloride Level 94 Carbon Dioxide Level 25.2 Anion Gap 14 Blood Urea Nitrogen 109 Creatinine 5.36 Estimat Glomerular Filtration 11 Rate Random Glucose 149 Calcium Level 8.1 Phosphorus Level 6.3 Magnesium Level 2.9 Total Bilirubin 0.8 Direct Bilirubin 0.5 Indirect Bilirubin 0.3 Aspartate Amino Transf 102 (AST/SGOT) Alanine Aminotransferase 49 (ALT/SGPT) Alkaline Phosphatase 66 Total Protein 5.9 Albumin 2.5 Imaging Last 48 hours Impressions Renal Ultrasound 07/08/16 0000 Signed Impressions: Service Date/Time: Friday, July 08, 2016 17:16 - CONCLUSION: 1. Resistive indices could not be obtained on the right side into the patient's body habitus and shadowing bowel gas. Left renal artery resistive indices are within normal limits. 2. No significant abdominal aortic aneurysm identified status post repair. 3. Probable 7 mm nonobstructing midpole right renal calculus. 4. Tiny left lower pole cyst measuring 1.5 cm. Hamlet Vinson MD Assessment and Plan Plan POD#5 s/p TEVAR and L LE fasciotomy Expected ATN; stable vent 1. Neuro: intact. Spinal drain out. Continue neuro checks. Ok to normalize Temp goal. Continue MAP augementation. 2. Resp: wean vent as tolerated 3. CV: Goal SBP 140 for SCI protection 4. FEN/GI: TF ok (Nepro); Monitor e'lytes. TF at goal 5. : ATN; will avoid nephrotoxic meds, exogenous K. Renal duplex looks great. No need for HD today. creatinine rise may be slowing. Recheck tomorrow. 6. ID: no issues 7. Heme: Hct stable (25). Probably would benefit from 2U PRBC for SC protection. 8. endocrine: SSI as per ICU team 9. continue pulse checks - perfusion to LLE restored with TEVAR 10. Continue wound care on lateral fasciotomy. 11. FULL CODE Hamlet Long MD FACS social problems specialist [facility] - Heart and V[facility] Surgery at [facility] [phone] Hamlet Long MD Jul 09, 2016 10:04
--- NOTE | 2016-07-09 15:10 | PD.CARD.PN ---
Subjective Subjective Remarks Intubated, sedated Objective Medications Current Medications Medications (Trade) Dose Ordered Sig/Sascha Route Start Time Stop Time Status Last Admin (Trandate Inj) 20 mg Q15M PRN IV 07/04/16 19:15 (Apresoline Inj) 10 mg Q15M PRN IV 07/04/16 19:15 07/06/16 14:04 (Lopressor Inj) 5 mg Q5M PRN IV PUSH 07/04/16 19:30 07/07/16 12:54 (Peridex 0.12% Liq) 15 ml BID@08,20 MT 07/05/16 08:00 07/09/16 08:00 (D50w (Vial) Inj) 25 ml UNSCH PRN IV PUSH 07/04/16 22:45 (NovoLIN R SUPPLEMENTAL SCALE) 1 Q6HR SQ 07/05/16 00:00 07/09/16 12:00 (Vitamin B1) 100 mg DAILY PO 07/08/16 09:00 07/09/16 09:51 (Theragran) 1 tab DAILY PO 07/05/16 09:00 07/09/16 09:51 (NS Flush) 2 ml UNSCH PRN IV FLUSH 07/04/16 22:45 (NS Flush) 2 ml BID IV FLUSH 07/05/16 09:00 07/09/16 09:00 (Tylenol) 650 mg Q6H PRN PO 07/04/16 22:45 (Protonix Inj) 40 mg DAILY IV 07/05/16 09:00 07/09/16 09:53 (Zofran Inj) 4 mg Q6H PRN IV 07/04/16 22:45 (Stephie-Colace) 2 tab BID PO 07/05/16 09:00 07/09/16 09:00 Miscellaneous Information 1 Q361D XX 07/04/16 22:45 (Chlorhexidine 2% Cloth) 3 pack Taper DAILY@04 TOP 07/05/16 04:00 07/01/17 03:59 07/09/16 04:51 Chlorhexidine Gluconate 3 pack 3 pack UNSCH PRN TOP 07/04/16 22:45 (Levophed-Dextrose Drip) 250 ml @ 0 mls/hr TITRATE IV 07/05/16 18:30 07/08/16 20:51 (Haldol Inj) 5 mg Q4H PRN IV 07/06/16 13:30 07/06/16 14:04 (Ativan Inj) 1 mg Q15M PRN IV PUSH 07/06/16 13:30 07/06/16 14:05 (Melatonin) 5 mg HS PO 07/06/16 21:00 07/08/16 20:53 Fentanyl Citrate 25 mcg 25 mcg Q30M PRN IV PUSH 07/06/16 13:45 07/07/16 09:03 Propofol 100 ml @ 0 mls/hr TITRATE IV 07/06/16 22:45 07/08/16 20:51 (fentaNYL DRIP) 250 ml @ 0 mls/hr TITRATE IV 07/06/16 22:45 07/08/16 20:50 (SEROquel) 100 mg Q8HR PO 07/07/16 07:30 07/09/16 13:57 (Zanaflex) 2 mg Q12HR PO 07/07/16 09:00 07/09/16 14:00 (Valium) 5 mg Taper Q8HR PO 07/07/16 07:30 07/15/16 07:29 07/09/16 13:58 (Phoslo) 2,668 mg TID PO 07/07/16 09:00 07/09/16 13:00 (Pill Splitter) 1 ea UNSCH PRN OTHER 07/07/16 07:30 (Heparin Inj) 5,000 units Q8H SQ 07/08/16 20:00 07/09/16 12:00 Vital Signs / I&O Vital Signs Date Time Temp Pulse Resp B/P Pulse Ox O2 Delivery O2 Flow Rate FiO2 07/09/16 14:00 53 07/09/16 14:00 155/53 07/09/16 12:30 98 35 07/09/16 12:00 97.2 58 28 163/59 98 07/09/16 12:00 163/59 07/09/16 12:00 55 07/09/16 12:00 40 07/09/16 10:00 56 07/09/16 10:00 158/54 07/09/16 08:00 40 07/09/16 08:00 55 07/09/16 08:00 96.8 56 18 168/58 98 07/09/16 08:00 168/58 07/09/16 07:58 100 35 07/09/16 07:00 Mechanical Ventilator 07/09/16 06:00 174/58 07/09/16 06:00 59 07/09/16 04:02 99 40 07/09/16 04:00 53 07/09/16 04:00 165/57 07/09/16 04:00 40 07/09/16 04:00 96.8 53 18 158/54 98 07/09/16 02:00 164/54 07/09/16 02:00 54 07/09/16 01:02 99 40 07/09/16 00:00 60 07/09/16 00:00 40 07/09/16 00:00 158/54 07/09/16 00:00 97.5 60 18 158/54 97 07/08/16 22:00 177/58 07/08/16 22:00 61 07/08/16 20:00 40 07/08/16 20:00 62 07/08/16 20:00 97.8 62 18 166/58 98 07/08/16 20:00 166/58 07/08/16 20:00 98 Mechanical Ventilator 40 07/08/16 19:55 96 40 07/08/16 18:00 64 07/08/16 18:00 160/60 07/08/16 16:00 178/59 07/08/16 16:00 58 07/08/16 16:00 97.8 58 18 178/59 99 07/08/16 16:00 40 07/08/16 15:42 99 40 I/O 07/08/16 07/08/16 07/08/16 07/09/16 07/09/16 07/09/16 07:00 15:00 23:00 07:00 15:00 23:00 Intake Total 790 ml 382 ml 463 ml 514 ml 635 ml Output Total 179 ml 233 ml 319 ml 347 ml 360 ml Balance 611 ml 149 ml 144 ml 167 ml 275 ml Intake IV Total 370 ml 282 ml 177 ml 172 ml 138 ml Tube Feeding 360 ml 0 ml 196 ml 282 ml 377 ml Tube Irrigant 60 ml 100 ml 90 ml 60 ml 120 ml Output Urine Total 179 ml 233 ml 319 ml 347 ml 360 ml Drainage Total 0 ml # Bowel Movements 0 0 0 0 Physical Exam GENERAL: Intubated, sedated SKIN: Warm and dry. HEAD: Normocephalic. EYES: No scleral icterus. No injection or drainage. NECK: Supple, trachea midline. No JVD or lymphadenopathy. CARDIOVASCULAR: Regular rate and rhythm without murmurs, gallops, or rubs. RESPIRATORY: Breath sounds equal bilaterally. No accessory muscle use. GASTROINTESTINAL: Abdomen soft, non-tender, nondistended. MUSCULOSKELETAL: No cyanosis, mild edema, good distal perfusion Laboratory Laboratory Tests Test 07/09/16 04:12 White Blood Count 11.9 TH/MM3 Red Blood Count 2.73 MIL/MM3 Hemoglobin 8.7 GM/DL Hematocrit 24.8 % Mean Corpuscular Volume 90.9 FL Mean Corpuscular Hemoglobin 31.7 PG Mean Corpuscular Hemoglobin 34.8 % Concent Red Cell Distribution Width 13.4 % Platelet Count 71 TH/MM3 Mean Platelet Volume 10.7 FL Prothrombin Time 11.4 SEC Prothromb Time International 1.0 RATIO Ratio Activated Partial 28.0 SEC Thromboplast Time Sodium Level 133 MEQ/L Potassium Level 4.7 MEQ/L Chloride Level 94 MEQ/L Carbon Dioxide Level 25.2 MEQ/L Anion Gap 14 MEQ/L Blood Urea Nitrogen 109 MG/DL Creatinine 5.36 MG/DL Estimat Glomerular Filtration 11 ML/MIN Rate Random Glucose 149 MG/DL Calcium Level 8.1 MG/DL Phosphorus Level 6.3 MG/DL Magnesium Level 2.9 MG/DL Total Bilirubin 0.8 MG/DL Direct Bilirubin 0.5 MG/DL Indirect Bilirubin 0.3 MG/DL Aspartate Amino Transf 102 U/L (AST/SGOT) Alanine Aminotransferase 49 U/L (ALT/SGPT) Alkaline Phosphatase 66 U/L Total Protein 5.9 GM/DL Albumin 2.5 GM/DL Imaging Last Impressions Renal Ultrasound 07/08/16 0000 Signed Impressions: Service Date/Time: Friday, July 08, 2016 17:16 - CONCLUSION: 1. Resistive indices could not be obtained on the right side into the patient's body habitus and shadowing bowel gas. Left renal artery resistive indices are within normal limits. 2. No significant abdominal aortic aneurysm identified status post repair. 3. Probable 7 mm nonobstructing midpole right renal calculus. 4. Tiny left lower pole cyst measuring 1.5 cm. Hamlet Vinson MD Chest X-Ray 07/07/16 0600 Signed Impressions: Service Date/Time: Thursday, July 07, 2016 04:38 - CONCLUSION: 1. New bibasilar infiltrates. Joe Appiah Jr., MD Aorta CTA 07/04/16 0000 Signed Impressions: Service Date/Time: June 19:53 - CONCLUSION: 1. Extensive aortic dissection extending from the proximal transverse aorta just distal to the origin of the left subclavian artery. Dissection extends distally through both superficial femoral arteries. 2. Occlusion of the right renal artery with absent perfusion of the right kidney. Dissection of the left renal artery with absent perfusion of the anterior left kidney. 3. 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 4. Occlusion of left external iliac artery and right internal iliac artery. 5. ET tube in satisfactory position. Dependent consolidation in both lungs. Probable mild liver cirrhosis. No obstruction or free fluid. Russell catheter in decompressed bladder. See above discussion. 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 Wean vent as tolerated. Serial echos with well preserved LV systolic fx. No evidence of ACS. No new cardiac issues. Nomi Mondragon MD Jul 09, 2016 15:10
[2016-07-09] MEDS: PROPOFOL 1000 MG/100 ML INJ 100 ML IV SCH ×2 (15:20→21:07)
--- NOTE | 2016-07-09 18:28 | HHI.CCPN ---
Subjective Remarks/Hospital Course Hospital Course: This is a 60-year-old male who is transferred emergently from outside hospital with per report and acute type B dissection. Apparently the patient told his family member today that he had searing back pain and was taken to the emergency department. A CT of the chest at that time showed a type B dissection. The patient was intubated the outside facility and transferred to [place] for emergent evaluation management. Unfortunately, the patient is unable to provide any additional history at this time. I was at bedside and the patient arrived to the surgical intensive care unit. Dr. Long and I both evaluated the patient and when he arrived he was in a junctional bradycardia with heart rate in the 40s. He had obvious ST depressions in lead II on telemetry. Our initial concern was that we have extended the dissection into the type A dissection. We also did not have any CT of the abdomen and pelvis. On her physical exam, the patient had a cold left foot without pulses. I emergently placed a right radial arterial line, please see separate procedure note for details. We then went emergently to the CT scanner for repeat CT aortogram of the chest abdomen and pelvis to investigate the extent to which the dissection has extended. The CT aortogram demonstrated that this was still a type B dissection with the celiac artery being significantly compressed and possibly comprising flow from the dissection flap. The right kidney appears to be perfused off the false lumen and not the true lumen, and there is no contrast going down the left femoral artery. Patient was then brought back to the intensive care unit. His blood pressure is controlled on nicardipine infusion for goal systolic blood pressure less than 110. A 12-lead EKG at that time was done which demonstrated significant ST depressions in the inferior leads as well as the far lateral leads consistent with subendocardial ischemia. At the request of Dr. Long in anticipation of going emergently to the operative theater, I placed a lumbar drain for spinal protection, please see separate procedure note for details. At that point the patient was taken emergently to the operating room. Critical care medicine is been consulted to evaluate and manage the patient's type B dissection, hemodynamic's, acute hypoxic respiratory failure. Subjective: 07/05: taken to OR for TEVAR overnight. lactate cleared overnight. uop adequate. Cr elevated to 1.8 this AM. 07/06: oliguric overnight. Cr rising. however, lactate cleared. other markers of end-organ perfusion better. likely ATN from time of dissection. awake following commands. moving bilateral lower extremities. clear CSF in lumbar drain. on intermittent norepinephrine to maintain spinal perfusion. 07/07: extubated yesterday, followed commands, good pulmonary mechanics. However , after extubation, became acutely delirious- probable combination of etoh withdraw and icu delirium, some pain. mental status waxed and waned throughout the day and ultimately reintubated overnight for worsening waning mental status and hypoxia. post-extubation it has been documented that he continues to move his bilateral lower extremities to painful stimuli and spontaneously. does not follow commands this morning. troponins downtrending. cardiology evaluated the patient yesterday, formal note pending, but per my conversation, plan was for ongoing conservative management as we are doing, and plan for nuc med stress test when stable. 07/08: still moving bilateral LEs spontaneously and w/d to pain. remains intubated with persistent agitation. hypoxia improving. platelets continue to fall, likely a combination of consumption, BUBBA, liver disease. will give unit of platelets prior to d/c lumbar drain. 07/09: Troponin spill resolving without evidence of ongoing injury. Major obstacle is agitation related to ETOH withdrawal followed by necessary sedation. Continue to work toward vent weaning. Objective Vital Signs Date Time Temp Pulse Resp B/P Pulse Ox O2 Delivery O2 Flow Rate FiO2 07/09/16 18:00 51 07/09/16 18:00 161/59 07/09/16 16:00 40 07/09/16 16:00 97.0 18 98 07/09/16 07:00 Mechanical Ventilator 07/06/16 19:00 4.00 Intake and Output 07/08/16 07/08/16 07/09/16 08:00 16:00 00:00 Intake Total 790 ml 382 ml 463 ml Output Total 179 ml 233 ml 319 ml Balance 611 ml 149 ml 144 ml Result Diagram: 07/09/16 0412 07/09/16 0412 Objective Remarks GENERAL: Middle-aged male, lying in bed, intubated, lightly sedated. HEENT: Normocephalic. Atraumatic. Pupils 2 mm, reactive, conjugate. NECK: trachea is midline. Supple. Orotracheally intubated CHEST: Equal chest rise. Clear to auscultation. No wheezes or crackles. PRVC CARDIOVASCULAR: normal rate, regular rhythm. no m,r. No JVD. ABDOMEN: Soft, nontender, nondistended. No guarding. MUSCULOSKELETAL: distal pulses 2+. NEUROLOGICAL: Withdraws in both LEs. A/P Assessment and Plan Assessment: 60yM with acute type B dissection s/p emergent TEVAR. Course complicated by type II NSTEMI with demand ischemia, acute agitated delirium and hypoxic respiratory failure requiring re-intubation, acute oligoanuric renal failure. He remains critically ill. Will plan on removal of lumbar drain today. platelet transfusion and monitoring for ongoing consumptive coagulopathy. ATN persists and GFR remains poor. FENa 1.2% consistent with ATN. I have ordered renal ultrasound with doppler to rule out obstruction and poor vascular flow secondary to dissection/TEVAR. Continue with permissive/forced hypertension. Continue frequent neuro checks. I continue to think that although he is off pathway and remains critically ill in multi-organ system failure, that this is overall still a generalized improving course and the overall outcome could still be favorable. I am still pushing for aggressive measures as I do not think this is a terminal diagnosis. Plan by systems: Neurologic: Severe Agitated Delirium Alcohol Withdraw Risk for spinal cord hypoperfusion Alcohol abuse Lumbar drain placement Propofol, fentanyl for goal RASS -2 -- d/c lumbar drain today 07/08 Delirium/Withdraw regimen: --tizanidine 2mg po BID for pain adjuvant and to help with delirium --seroquel 100mg po q8hr for delirium --haldol 5mg iv q4h prn for breakthrough agitation. --valium 10mg po q8hr for etoh withdraw, start slow taper over 1 week. --ativan 1mg iv q15min prn for withdraw symptoms --continue to avoid precedex for now given recent junctional bradycardia, NSTEMI , and need for continued spinal cord protection. Respiratory: Acute hypoxic and hypercarbic respiratory failure Vent bundle Head of bed elevated. will attempt SAT/SBT to see if the agitation is under better control. Wean FiO2 for goal SPO2 greater than 90% Nebs every 6 and every 2 when necessary Cardiovascular: Acute type B dissection- secured s/p Emergent TEVAR Type II NSTEMI- Demand Ischemia- resolving Junction bradycardia- resolved. Goal map > 80 for spinal protection -- troponins downtrending. will stop trending. -- elevated troponins likely combination of demand ischemia and poor renal clearance -- Cardiology: Dr. Mondragon following. plan for conservative management with myocardial perfusion scan when stable. -- 2d echo: EF 55%, no RWMA. -- trend CVP -- continue pulse contour analysis today. -- clinically euvolemic. no indication for volume resuscitation at this time. -- continue norepinephrine to maintain spinal perfusion. Renal: Acute kidney injury Acute Tubular Necrosis Likely secondary to hyperperfusion of the kidney from dissection, ATN -- FENa 07/07 1.2% consistent with ATN. Urine eos negative. -- order renal ultrasound with doppler. pending. -- Strict I/Os Russell placement Every hour urine outputs --clinically intravascularly euvolemic. --no indication for emergent renal replacement therapy at this time. --nephrology consult 07/08 FEN/GI: Lactic Acidosis- resolved. Acute protein calorie malnutrition- mild Non-anion gap metabolic acidosis- resolved. Hyperphosphatemia TF: nepro at goal 40. --nutrition consult. Daily BMP --phos binder Heme/ID: Leukocytosislikely reactive, improved. Acute Blood Loss Anemia Thrombocytopenia Daily CBC No infectious etiology suspected this time Daily coags --thrombocytopenia is likely multifactorial from liver disease, consumptive from critical illness and dissection. 4T score 2 (low probability). will hold off on sending HIT. Endocrine: Hyperglycemia of critical illness -- SSI, medium scale, every 6 hours Prophylaxis: GI Prophylaxis Protonix 40 mg IV every 24 DVT Prophylaxis -- SCDs The patient may receive heparin subcutaneous every 12. Patient may additionally receive aspirin, but not Plavix. -- for now, SQH q12h. after drain pulled, no anticoagulation x 4 hours, then fine to restart any anticoagulation. Lines: 07/04 right radial arterial line --07/04 right IJ cortis 07/04 Russell 07/04 lumbar drain- will d/c this today Dispo: He remains critically ill with multiple organ systems dysfunctional. This patient remains critically ill with one or more organ systems which are or may become a threat to life. I have spent in excess of 37 minutes discontinuously in the care and management of this patient. This time is exclusive of procedures, and includes, but is not limited to, evaluation of the patient, review of the medical record, discussions with family, consultants, nursing staff, or respiratory therapy, and documentation in the medical record. Carlos Campos MD Jul 09, 2016 18:28
--- NOTE | 2016-07-09 19:10 | HHI.NPPN ---
Subjective History of Present Illness This patient is a 60-year-old male apparently with a history of previous alcohol and crack usage also has a history of hepatitis C, coronary disease and hypertension as well as medical noncompliance. Patient was admitted with a type B aortic dissection. CTA thoracic aorta and abdominal aorta performed July 04, 2016 revealed unoccluded right renal artery as well as perfusion only to the left posterior aspect of the left kidney. Patient status post emergent TAVA, left lower extremity fasciectomy mention of previous nonperfusion to that extremity. Patient's creatinine level was within normal range from previous records prior to this admission however patient had evidence of renal sufficiency on presentation and his creatinine level has continued to rise to a level of 4.75 Date of Consultation with marginal urine output. Interval History Patient unresponsive to questions. Intubated. Review of Systems General General Remarks Unobtainable because of clinical status. Objective Data Data 07/08/16 07/09/16 19:00 07:00 Intake Total 382 ml 977 ml Output Total 233 ml 666 ml Balance 149 ml 311 ml Intake IV Total 282 ml 349 ml Tube Feeding 0 ml 478 ml Tube Irrigant 100 ml 150 ml Output Urine Total 233 ml 666 ml Drainage Total 0 ml # Bowel Movements 0 0 Vital Signs Date Time Temp Pulse Resp B/P Pulse Ox O2 Delivery O2 Flow Rate FiO2 07/09/16 18:00 51 07/09/16 18:00 161/59 07/09/16 16:00 56 07/09/16 16:00 40 07/09/16 16:00 97.0 56 18 165/60 98 07/09/16 16:00 165/60 07/09/16 16:00 98 35 07/09/16 14:00 53 07/09/16 14:00 155/53 07/09/16 12:30 98 35 07/09/16 12:00 97.2 58 28 163/59 98 07/09/16 12:00 163/59 07/09/16 12:00 55 07/09/16 12:00 40 07/09/16 10:00 56 07/09/16 10:00 158/54 07/09/16 08:00 40 07/09/16 08:00 55 07/09/16 08:00 96.8 56 18 168/58 98 07/09/16 08:00 168/58 07/09/16 07:58 100 35 07/09/16 07:00 Mechanical Ventilator 07/09/16 06:00 174/58 07/09/16 06:00 59 07/09/16 04:02 99 40 07/09/16 04:00 53 07/09/16 04:00 165/57 07/09/16 04:00 40 07/09/16 04:00 96.8 53 18 158/54 98 07/09/16 02:00 164/54 07/09/16 02:00 54 07/09/16 01:02 99 40 07/09/16 00:00 60 07/09/16 00:00 40 07/09/16 00:00 158/54 07/09/16 00:00 97.5 60 18 158/54 97 07/08/16 22:00 177/58 07/08/16 22:00 61 07/08/16 20:00 40 07/08/16 20:00 62 07/08/16 20:00 97.8 62 18 166/58 98 07/08/16 20:00 166/58 07/08/16 20:00 98 Mechanical Ventilator 40 07/08/16 19:55 96 40 -: 07/09/16 0412 07/09/16 0412 Physical Exam General Appearance: No Acute Distress, Comfortable Eyes Eye Exam: Sclera White Pulmonary Resp Exam: Clear Bilaterally, Breath Sounds Equal, No Distress Cardiology CV Exam: Regular, Normal Sinus Rhythm Gastrointestinal/Abdomen GI Exam: Soft, Non-Tender Assessment/Plan Problem List: (1) Acute kidney insufficiency Plan: Patient most likely has sustained severe ischemic injuries to both kidneys as a result of dissection involving renal arteries. Patient's creatinine level has risen but not severely and urine output appears to be improving somewhat. Results of duplex study noted. No indication to initiate dialysis today but continue to monitor patient's metabolic status, renal indices and urine output. Medications should be adjusted for the patient's estimated GFR if clinically indicated. Avoid agents with significant potential for nephrotoxicity possible including NSAIDs for analgesia, iodine contrast agents if possible. Gadolinium is contraindicated if the GFR is below 30. (2) Hepatitis C Plan: Not playing a role as far as his acute renal failure is concerned in this setting. (3) HTN (hypertension) (4) Hyperphosphatemia Plan: Secondary to renal failure. Noted phosphate binder started. Eufemia Walters MD 28, 2017 19:10
[2016-07-09] MEDS: fentaNYL DRIP 250 ML IV SCH (21:06)
[2016-07-09] MEDS: NOREPINEPHRINE 4 MG/D5W 250 ML IV SCH (21:06)
[2016-07-09] MEDS: MELATONIN 5 MG TAB PO SCH (21:07)
[2016-07-10] VITALS (20 sets, daily range): BP systolic 134–171; BP diastolic 49–72; PULSE 51–62; RESP 18; TEMP 97.7–99; O2SAT 93–100
[2016-07-10] MEDS: RESP: ALBUTEROL 2.5 MG/IPRATROPIUM 0.5 MG NEB (SCH) INH ×4 (03:14→19:42)
[2016-07-10] MEDS: CHLORHEXIDINE GLUCONATE 2 % 1 PACK (2 CLOTHS) TOP SCH (04:00)
[2016-07-10 05:29] LABS: BICARBONATE 23.7 MEQ/L (21.0-32.0); POTASSIUM 4.8 MEQ/L (3.5-5.1)
[2016-07-10 05:31] LABS: APTT (PATIENT) 26.8 SEC (24.3-30.1); INDIRECT BILIRUBIN 0.3 MG/DL (0.0-0.8); PROTHROMBIN TIME - PATIENT 11.2 SEC (9.8-11.6); TOTAL BILIRUBIN ADULT 0.7 MG/DL (0.2-1.0)
[2016-07-10 05:36] LABS: HEMATOCRIT 25.6 % (39.0-51.0); MEAN CELL VOLUME 92.1 FL (80.0-100.0); MEAN CORPUSCULAR HEMOGLOBIN 31.9 PG (27.0-34.0); MEAN CORPUSCULAR HGB CONC 34.6 % (32.0-36.0); PLATELET COUNT 78 TH/MM3 (150-450); RED BLOOD COUNT 2.78 MIL/MM3 (4.50-5.90); RED CELL DISTRIBUTION WIDTH 13.2 % (11.6-17.2); WHITE BLOOD COUNT 12.7 TH/MM3 (4.0-11.0)
[2016-07-10] MEDS: HEPARIN SODIUM - SQ 10,000 UNITS/ML VIAL SQ SCH ×3 (05:40→21:00)
[2016-07-10] MEDS: DIAZEPAM 10 MG TAB PO SCH ×3 (05:40→21:01)
[2016-07-10] MEDS: QUEtiapine FUMARATE 100 MG TAB PO SCH (05:40)
[2016-07-10] MEDS: INSULIN NovoLIN REGULAR SUPPLEMENTAL SCALE SQ SCH ×4 (06:00→17:25)
[2016-07-10 06:05] LABS: REVIEW FLAG FINAL
[2016-07-10] MEDS: PROPOFOL 1000 MG/100 ML INJ 100 ML IV SCH ×3 (06:08→14:17)
--- NOTE | 2016-07-10 07:58 | HHI.CCPN ---
Subjective Remarks/Hospital Course Hospital Course: This is a 60-year-old male who is transferred emergently from outside hospital with per report and acute type B dissection. Apparently the patient told his family member today that he had searing back pain and was taken to the emergency department. A CT of the chest at that time showed a type B dissection. The patient was intubated the outside facility and transferred to [place] for emergent evaluation management. Unfortunately, the patient is unable to provide any additional history at this time. I was at bedside and the patient arrived to the surgical intensive care unit. Dr. Long and I both evaluated the patient and when he arrived he was in a junctional bradycardia with heart rate in the 40s. He had obvious ST depressions in lead II on telemetry. Our initial concern was that we have extended the dissection into the type A dissection. We also did not have any CT of the abdomen and pelvis. On her physical exam, the patient had a cold left foot without pulses. I emergently placed a right radial arterial line, please see separate procedure note for details. We then went emergently to the CT scanner for repeat CT aortogram of the chest abdomen and pelvis to investigate the extent to which the dissection has extended. The CT aortogram demonstrated that this was still a type B dissection with the celiac artery being significantly compressed and possibly comprising flow from the dissection flap. The right kidney appears to be perfused off the false lumen and not the true lumen, and there is no contrast going down the left femoral artery. Patient was then brought back to the intensive care unit. His blood pressure is controlled on nicardipine infusion for goal systolic blood pressure less than 110. A 12-lead EKG at that time was done which demonstrated significant ST depressions in the inferior leads as well as the far lateral leads consistent with subendocardial ischemia. At the request of Dr. Long in anticipation of going emergently to the operative theater, I placed a lumbar drain for spinal protection, please see separate procedure note for details. At that point the patient was taken emergently to the operating room. Critical care medicine is been consulted to evaluate and manage the patient's type B dissection, hemodynamic's, acute hypoxic respiratory failure. 07/05: taken to OR for TEVAR overnight. lactate cleared overnight. uop adequate. Cr elevated to 1.8 this AM. He is on Coreg 50 mg by mouth 07/06: oliguric overnight. Cr rising. however, lactate cleared. other markers of end-organ perfusion better. likely ATN from time of dissection. awake following commands. moving bilateral lower extremities. clear CSF in lumbar drain. on intermittent norepinephrine to maintain spinal perfusion. 07/07: extubated yesterday, followed commands, good pulmonary mechanics. However , after extubation, became acutely delirious- probable combination of etoh withdraw and icu delirium, some pain. mental status waxed and waned throughout the day and ultimately reintubated overnight for worsening waning mental status and hypoxia. post-extubation it has been documented that he continues to move his bilateral lower extremities to painful stimuli and spontaneously. does not follow commands this morning. troponins downtrending. cardiology evaluated the patient yesterday, formal note pending, but per my conversation, plan was for ongoing conservative management as we are doing, and plan for nuc med stress test when stable. 07/08: still moving bilateral LEs spontaneously and w/d to pain. remains intubated with persistent agitation. hypoxia improving. platelets continue to fall, likely a combination of consumption, BUBBA, liver disease. will give unit of platelets prior to d/c lumbar drain. 07/09: Troponin spill resolving without evidence of ongoing injury. Major obstacle is agitation related to ETOH withdrawal followed by necessary sedation. Continue to work toward vent weaning. Subjective: 07/10: Afebrile. Not following commands. Continues to be agitated for reasons above. Tolerating tube feeding at goal rate. Creatinine hopefully has plateaued. Objective Vital Signs Date Time Temp Pulse Resp B/P Pulse Ox O2 Delivery O2 Flow Rate FiO2 07/10/16 07:26 97 35 07/10/16 06:00 150/54 07/10/16 06:00 60 07/10/16 04:00 97.7 18 07/09/16 20:00 Mechanical Ventilator 07/06/16 19:00 4.00 Intake and Output 07/09/16 07/09/16 07/10/16 08:00 16:00 00:00 Intake Total 514 ml 635 ml 639 ml Output Total 347 ml 360 ml 474 ml Balance 167 ml 275 ml 165 ml Result Diagram: 07/10/16 0454 07/10/16 0454 Imaging Last Impressions Renal Ultrasound 07/08/16 0000 Signed Impressions: Service Date/Time: Friday, July 08, 2016 17:16 - CONCLUSION: 1. Resistive indices could not be obtained on the right side into the patient's body habitus and shadowing bowel gas. Left renal artery resistive indices are within normal limits. 2. No significant abdominal aortic aneurysm identified status post repair. 3. Probable 7 mm nonobstructing midpole right renal calculus. 4. Tiny left lower pole cyst measuring 1.5 cm. Hamlet Vinson MD Chest X-Ray 07/07/16 0600 Signed Impressions: Service Date/Time: Thursday, July 07, 2016 04:38 - CONCLUSION: 1. New bibasilar infiltrates. Joe Appiah Jr., MD Aorta CTA 07/04/16 0000 Signed Impressions: Service Date/Time: June 19:53 - CONCLUSION: 1. Extensive aortic dissection extending from the proximal transverse aorta just distal to the origin of the left subclavian artery. Dissection extends distally through both superficial femoral arteries. 2. Occlusion of the right renal artery with absent perfusion of the right kidney. Dissection of the left renal artery with absent perfusion of the anterior left kidney. 3. 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 4. Occlusion of left external iliac artery and right internal iliac artery. 5. ET tube in satisfactory position. Dependent consolidation in both lungs. Probable mild liver cirrhosis. No obstruction or free fluid. Russell catheter in decompressed bladder. See above discussion. Rodriguez Jeff MD Objective Remarks GENERAL: 60-year-old male, critically ill currently orotracheally intubated HEENT: Normocephalic. Atraumatic. Pupils 3 mm, reactive, conjugate bilaterally. NECK: Trachea is midline. Supple. Right cordis is clean dry and intact Orotracheally intubated CHEST: Clear to auscultation bilaterally without wheezes rales or rhonchi. CARDIOVASCULAR: RRR. S1, S2 no S4. Without murmur ABDOMEN: Soft, nontender, nondistended. Active bowel sounds are appreciated MUSCULOSKELETAL: distal pulses 2+. Left lower extremity fasciotomy site covered with Sandeep wrap NEUROLOGICAL: Positive corneal reflex. Positive gag. Withdraws in both upper and LEs. Urinary Catheter: Yes Assessment to: Continue Russell insert reason: Prolonged Immobilization Vascular Central Line Catheter: Yes Assessment to: Continue Date of Insertion: Jul 04, 2016 Line: Central Venous Catheter Side: Right Location: Internal, Jugular A/P Assessment and Plan Neuro/Psych: Severe Agitated Delirium Alcohol Withdrawal - up to 15 beers daily Risk for spinal cord hypoperfusion Alcohol abuse History of polysubstance abuse including crack cocaine Lumbar drain placement - removed 07/08 Insomnia Propofol at 25 mcg/kg/m and, fentanyl at 50 mg an hour for sedation/analgesia while intubated -- Goal RASS -2 --Daily sedation vacation On melatonin 5 mg at night as needed for insomnia Daily thiamine 100 mg daily for EtOH use CT head of delirium persists Delirium/Withdraw regimen: --Tizanidine 2mg po BID for pain adjuvant and to help with delirium --Seroquel 50mg po q8hr for delirium --Haldol 5mg iv q4h prn for breakthrough agitation. --Valium 5mg po q8hr for etoh withdraw, start slow taper over 1 week. --Ativan 1mg iv q15min prn for withdraw symptoms --continue to avoid Precedex for now given recent junctional bradycardia, NSTEMI , and need for continued spinal cord protection with goal systolic blood pressure of 140 recommended per vascular surgery. Respiratory: Acute hypoxic and hypercarbic respiratory failure -- PRVC 18/550/0.8/5/35 Vent bundle Bronchodilator therapy every 6 hours and albuterol every 2 hours when needed Head of bed 30 will attempt SAT/SBT to see if the agitation is under better control. Wean FiO2 for goal SPO2 greater than 92% Follow-up a.m. chest x-ray/ABG Cardiovascular: Postop day #6 T4 with left lower x-ray fasciotomy secondary to type B aortic dissection with renal/visceral and left lower extreme L perfusion Thoracic endovascular stent with left lower extremity fasciotomy/ compartments with [address] Long Acute type B dissection- secured Type II NSTEMI- Demand Ischemia- resolving Junction bradycardia- resolved. Lactic Acidosis- resolved. Goal map > 80/SBP > 140 for spinal cordprotection -- troponin downtrending. Lasix 0.1 -- elevated troponins likely combination of demand ischemia and poor renal clearance -- Cardiology: Dr. Mondragon following. plan for conservative management with myocardial perfusion scan when stable. -- 2d echo: EF 55%, no RWMA. 2-D echo 07/08 repeat EF 60-65%. Mild MR. At [facility] dilated. RENO 49 mmHg --Cardiac output currently is 7.3. SVV is 5 -- continue norepinephrine to maintain spinal perfusion currently at 2 g per minute. Renal: Acute kidney injury Acute Tubular Necrosis Likely secondary to hypoperfusion of the kidney from dissection, ATN -- FENa 07/07 1.2% consistent with ATN. Urine eos negative. Urine urea ordered -- order renal ultrasound with doppler. Revealed patent renal arteries bilaterally. Tiny 7 mm right renal calculus and 1.5 cm left renal cyst. -- Strict I/Os Russell placement to be maintained --nephrology consult 07/08 appreciated. No indication for dialysis at this point Avoid nephrotoxins drugs FEN/GI: Acute protein calorie malnutrition- mild Non-anion gap metabolic acidosis- resolved. Hyperphosphatemia Hyper-magnesium Hyponatremia History of peptic ulcer disease Hepatitis C -from IV drug use Elevated AST TF: Nepro at goal 40 cc an hour --nutrition consult. Daily BMP --Currently on PhosLo 2668 mg 3 times a day for hyperphosphatemia Protonix for GI prophylaxis. Stephie-Colace twice a day for bowel regimen. Add MiraLAX and lactulose. Heme/ID: Leukocytosislikely reactive Acute Blood Loss Anemia Thrombocytopenia Daily CBC No infectious etiology suspected this time Daily coags --thrombocytopenia is likely multifactorial from liver disease, consumptive from critical illness and dissection. 4T score 2 (low probability). will hold off on sending HIT. Endocrine: Hyperglycemia of critical illness -- SSI, medium scale, every 6 hours Prophylaxis: GI Prophylaxis Protonix 40 mg IV every 24 DVT Prophylaxis -- SCDs/heparin The patient may receive heparin subcutaneous every 12. Patient may additionally receive aspirin, but not Plavix. Lines: 07/04 right radial arterial line --07/04 right IJ cortis Critical Care: The total critical care time was 55 minutes. Time to perform other separately billable procedures was not included in the critical care time. Chris Helton MD Jul 10, 2016 07:58
[2016-07-10] MEDS: CHLORHEXIDINE 0.12% (ORAL KIT) 15 ML CUP MT SCH ×2 (08:00→21:01)
[2016-07-10] MEDS ORDERED: GLYCERIN ADULT 2 GM SUPP RECTAL PRN (08:15)
[2016-07-10] MEDS ORDERED: GLYCERIN ADULT 2 GM SUPP RECTAL ONE (08:15)
[2016-07-10] MEDS: THIAMINE HCL 100 MG TAB PO SCH (09:00)
[2016-07-10] MEDS: PANTOPRAZOLE SODIUM 40 MG VIAL IV SCH (09:00)
[2016-07-10] MEDS: SODIUM CHLORIDE 0.9% FLUSH 10 ML FLUSH IV FLUSH SCH ×2 (09:00→21:00)
[2016-07-10] MEDS: CALCIUM ACETATE 667 MG CAP PO SCH ×3 (09:25→17:29)
[2016-07-10] MEDS: POLYETHYLENE GLYCOL 17 GM PKG OG-TUBE SCH ×2 (09:25→21:01)
[2016-07-10] MEDS: LACTULOSE SYRUP 20 GM/30 ML CUP PO SCH ×4 (09:25→21:00)
[2016-07-10] MEDS: DOCUSATE SODIUM 50 MG/SENNA 8.6 MG TAB PO SCH ×2 (09:25→21:00)
[2016-07-10] MEDS: MULTIVITAMIN TAB PO SCH (09:26)
[2016-07-10 12:42] LABS: UR UREA/CREAT RATIO 7.89 mg/mg (())
--- NOTE | 2016-07-10 13:09 | PD.CARD.PN ---
Subjective Subjective Remarks Intubated, sedated Objective Medications Current Medications Medications (Trade) Dose Ordered Sig/Sascha Route Start Time Stop Time Status Last Admin (Peridex 0.12% Liq) 15 ml BID@08,20 MT 07/05/16 08:00 07/10/16 08:00 (D50w (Vial) Inj) 25 ml UNSCH PRN IV PUSH 07/04/16 22:45 (NovoLIN R SUPPLEMENTAL SCALE) 1 Q6HR SQ 07/05/16 00:00 07/09/16 18:00 (Vitamin B1) 100 mg DAILY PO 07/08/16 09:00 07/10/16 09:00 (Theragran) 1 tab DAILY PO 07/05/16 09:00 07/10/16 09:26 (NS Flush) 2 ml UNSCH PRN IV FLUSH 07/04/16 22:45 (NS Flush) 2 ml BID IV FLUSH 07/05/16 09:00 07/10/16 09:00 (Tylenol) 650 mg Q6H PRN PO 07/04/16 22:45 (Protonix Inj) 40 mg DAILY IV 07/05/16 09:00 07/10/16 09:00 (Zofran Inj) 4 mg Q6H PRN IV 07/04/16 22:45 (Stephie-Colace) 2 tab BID PO 07/05/16 09:00 07/10/16 09:25 Miscellaneous Information 1 Q361D XX 07/04/16 22:45 (Chlorhexidine 2% Cloth) Taper DAILY@04 TOP 07/05/16 04:00 07/01/17 03:59 07/09/16 04:51 Chlorhexidine Gluconate 3 pack 3 pack UNSCH PRN TOP 07/04/16 22:45 (Levophed-Dextrose Drip) 250 ml @ 0 mls/hr TITRATE IV 07/05/16 18:30 07/09/16 21:06 (Haldol Inj) 5 mg Q4H PRN IV 07/06/16 13:30 07/06/16 14:04 (Ativan Inj) 1 mg Q15M PRN IV PUSH 07/06/16 13:30 07/06/16 14:05 (Melatonin) 5 mg HS PO 07/06/16 21:00 3/28/17 21:07 Fentanyl Citrate 25 mcg 25 mcg Q30M PRN IV PUSH 07/06/16 13:45 07/07/16 09:03 Propofol 100 ml @ 0 mls/hr TITRATE IV 07/06/16 22:45 07/10/16 11:54 (fentaNYL DRIP) 250 ml @ 0 mls/hr TITRATE IV 07/06/16 22:45 07/09/16 21:06 (Valium) 5 mg Taper Q8HR PO 07/07/16 07:30 07/15/16 07:29 07/10/16 05:40 (Phoslo) 2,668 mg TID PO 07/07/16 09:00 07/10/16 11:55 (Pill Splitter) 1 ea UNSCH PRN OTHER 07/07/16 07:30 (Heparin Inj) 5,000 units Q8H SQ 07/08/16 20:00 07/10/16 11:55 (Zanaflex) 2 mg Q12H PO 07/10/16 02:00 07/10/16 01:57 (Lactulose Liq) 30 ml QID PO 07/10/16 09:00 07/10/16 23:59 07/10/16 11:54 (Miralax) 17 gm BID OG-TUBE 07/10/16 09:00 07/10/16 09:25 (Glycerin Adult Supp) 2 gm DAILY PRN RECTAL 07/10/16 08:15 (SEROquel) 50 mg Q8HR PO 07/10/16 14:00 (Tears Naturale Opth Soln) 1 drop Q8HR EACH EYE 07/10/16 14:00 Vital Signs / I&O Vital Signs Date Time Temp Pulse Resp B/P Pulse Ox O2 Delivery O2 Flow Rate FiO2 07/10/16 11:16 96 35 07/10/16 10:00 60 07/10/16 10:00 154/52 07/10/16 08:00 98.8 58 18 171/57 97 07/10/16 08:00 60 07/10/16 08:00 40 07/10/16 08:00 171/57 07/10/16 07:26 97 35 07/10/16 07:00 97 Mechanical Ventilator 35 07/10/16 06:00 150/54 07/10/16 06:00 60 07/10/16 04:01 96 35 07/10/16 04:00 40 07/10/16 04:00 54 07/10/16 04:00 147/51 07/10/16 04:00 97.7 54 18 147/51 95 07/10/16 02:00 55 07/10/16 02:00 163/57 07/10/16 01:31 100 35 07/10/16 00:00 51 07/10/16 00:00 166/59 07/10/16 00:00 97.8 51 18 166/59 98 07/10/16 00:00 40 07/09/16 22:16 98 35 07/09/16 22:00 147/55 07/09/16 22:00 50 07/09/16 20:00 40 07/09/16 20:00 97 Mechanical Ventilator 35 07/09/16 20:00 96.8 50 18 178/63 97 07/09/16 20:00 50 07/09/16 20:00 178/63 07/09/16 19:40 97 35 07/09/16 18:00 51 07/09/16 18:00 161/59 07/09/16 16:00 56 07/09/16 16:00 40 07/09/16 16:00 97.0 56 18 165/60 98 07/09/16 16:00 165/60 07/09/16 16:00 98 35 07/09/16 14:00 53 07/09/16 14:00 155/53 I/O 07/09/16 07/09/16 07/09/16 07/10/16 07/10/16 07/10/16 07:00 15:00 23:00 07:00 15:00 23:00 Intake Total 514 ml 635 ml 639 ml 636 ml Output Total 347 ml 360 ml 474 ml 507 ml Balance 167 ml 275 ml 165 ml 129 ml Intake IV Total 172 ml 138 ml 167 ml 190 ml Tube Feeding 282 ml 377 ml 352 ml 356 ml Tube Irrigant 60 ml 120 ml 120 ml 90 ml Output Urine Total 347 ml 360 ml 474 ml 507 ml # Bowel Movements 0 0 0 0 Physical Exam GENERAL: Intubated, sedated SKIN: Warm and dry. HEAD: Normocephalic. EYES: No scleral icterus. No injection or drainage. NECK: Supple, trachea midline. No JVD or lymphadenopathy. CARDIOVASCULAR: Regular rate and rhythm without murmurs, gallops, or rubs. RESPIRATORY: Breath sounds equal bilaterally. No accessory muscle use. GASTROINTESTINAL: Abdomen soft, non-tender, nondistended. MUSCULOSKELETAL: No cyanosis, mild edema, good distal perfusion Laboratory Laboratory Tests Test 07/10/16 04:54 White Blood Count 12.7 TH/MM3 Red Blood Count 2.78 MIL/MM3 Hemoglobin 8.9 GM/DL Hematocrit 25.6 % Mean Corpuscular Volume 92.1 FL Mean Corpuscular Hemoglobin 31.9 PG Mean Corpuscular Hemoglobin 34.6 % Concent Red Cell Distribution Width 13.2 % Platelet Count 78 TH/MM3 Mean Platelet Volume 11.5 FL Prothrombin Time 11.2 SEC Prothromb Time International 1.0 RATIO Ratio Activated Partial 26.8 SEC Thromboplast Time Sodium Level 134 MEQ/L Potassium Level 4.8 MEQ/L Chloride Level 97 MEQ/L Carbon Dioxide Level 23.7 MEQ/L Anion Gap 13 MEQ/L Blood Urea Nitrogen 118 MG/DL Creatinine 5.45 MG/DL Estimat Glomerular Filtration 11 ML/MIN Rate Random Glucose 105 MG/DL Calcium Level 8.4 MG/DL Total Bilirubin 0.7 MG/DL Direct Bilirubin 0.4 MG/DL Indirect Bilirubin 0.3 MG/DL Aspartate Amino Transf 77 U/L (AST/SGOT) Alanine Aminotransferase 42 U/L (ALT/SGPT) Alkaline Phosphatase 72 U/L Total Protein 5.9 GM/DL Albumin 2.5 GM/DL Imaging Last Impressions Renal Ultrasound 07/08/16 0000 Signed Impressions: Service Date/Time: Friday, July 08, 2016 17:16 - CONCLUSION: 1. Resistive indices could not be obtained on the right side into the patient's body habitus and shadowing bowel gas. Left renal artery resistive indices are within normal limits. 2. No significant abdominal aortic aneurysm identified status post repair. 3. Probable 7 mm nonobstructing midpole right renal calculus. 4. Tiny left lower pole cyst measuring 1.5 cm. Hamlet Vinson MD Chest X-Ray 07/07/16 0600 Signed Impressions: Service Date/Time: Thursday, July 07, 2016 04:38 - CONCLUSION: 1. New bibasilar infiltrates. Joe Appiah Jr., MD Aorta CTA 07/04/16 0000 Signed Impressions: Service Date/Time: June 19:53 - CONCLUSION: 1. Extensive aortic dissection extending from the proximal transverse aorta just distal to the origin of the left subclavian artery. Dissection extends distally through both superficial femoral arteries. 2. Occlusion of the right renal artery with absent perfusion of the right kidney. Dissection of the left renal artery with absent perfusion of the anterior left kidney. 3. 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 4. Occlusion of left external iliac artery and right internal iliac artery. 5. ET tube in satisfactory position. Dependent consolidation in both lungs. Probable mild liver cirrhosis. No obstruction or free fluid. Russell catheter in decompressed bladder. See above discussion. 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 Wean vent as tolerated. Serial echos showed well preserved LV systolic fx. No evidence of ACS. No new cardiac issues. Slow progress. Nomi Mondragon MD Jul 10, 2016 13:08
--- NOTE | 2016-07-10 13:40 | PD.VS.PN ---
Subjective POD #: 6 Procedure(s): TEVAR, L LE fasciotomies for acute TBAD with visceral/renal/LLE malperfusion Subjective/Hospital Course stable overnight; continues to be neuro intact with spinal drain removed no focal neuro deficits Brother (TANJA) wants to discuss code status Objective Neuro: MENSAH; spinal drain out; no focal deficits Pulmonary: ventilated, weaning as tolerated Cardiac: low dose pressors for SCPP; no active cardiac issues FEN/GI: Nazia TF; e'lytes ok; K 4.8 : UOP more clear, and slowly picking up volume. No indication for HD at present. cr 5.4 ID Antibiotics(date/duration): WBC 13 ID Cultures: none Heme: Hct 26, stable Plt 78, stable Vascular: Palp pulses Fascotomies dressed today Laboratory Laboratory Tests Test 07/10/16 04:54 White Blood Count 12.7 Red Blood Count 2.78 Hemoglobin 8.9 Hematocrit 25.6 Mean Corpuscular Volume 92.1 Mean Corpuscular Hemoglobin 31.9 Mean Corpuscular Hemoglobin 34.6 Concent Red Cell Distribution Width 13.2 Platelet Count 78 Mean Platelet Volume 11.5 Prothrombin Time 11.2 Prothromb Time International 1.0 Ratio Activated Partial 26.8 Thromboplast Time Sodium Level 134 Potassium Level 4.8 Chloride Level 97 Carbon Dioxide Level 23.7 Anion Gap 13 Blood Urea Nitrogen 118 Creatinine 5.45 Estimat Glomerular Filtration 11 Rate Random Glucose 105 Calcium Level 8.4 Total Bilirubin 0.7 Direct Bilirubin 0.4 Indirect Bilirubin 0.3 Aspartate Amino Transf 77 (AST/SGOT) Alanine Aminotransferase 42 (ALT/SGPT) Alkaline Phosphatase 72 Total Protein 5.9 Albumin 2.5 Assessment and Plan Plan POD#6 s/p TEVAR and L LE fasciotomy Expected ATN - maybe resolving; stable vent 1. Neuro: intact. Spinal drain out. Continue neuro checks. Ok to normalize Temp goal. Continue MAP augmentation. MRI up to ICU team. 2. Resp: wean vent as tolerated 3. CV: Goal SBP 140 for SCI protection 4. FEN/GI: TF ok (Nepro); Monitor e'lytes. TF at goal 5. : ATN; will avoid nephrotoxic meds, exogenous K. Renal duplex looked great. No need for HD. creatinine rise may be slowing. Recheck tomorrow. 6. ID: no issues 7. Heme: Hct stable (25). Probably would benefit from 2U PRBC for SC protection. 8. endocrine: SSI as per ICU team 9. continue pulse checks - perfusion to LLE restored with TEVAR 10. Continue wound care on lateral fasciotomy. 11. I talked with the brother (TANJA). We are going to make him partial code status - specifically, NO CHEST COMPRESSIONS and NO CARDIOVERSION. Otherwise, continue all current levels of care. Discussed with ICU team. Hamlet Long MD FACS assistant unit forester [facility] - Heart [facility] V[facility] Surgery at [facility] [phone] Hamlet Long MD Jul 10, 2016 13:40
[2016-07-10] MEDS: ARTIFICIAL TEARS OPTH SOLN 15 ML BTL EACH EYE SCH ×2 (14:00→21:03)
[2016-07-10] MEDS: QUEtiapine FUMARATE 25 MG TAB PO SCH ×2 (14:17→21:00)
--- NOTE | 2016-07-10 16:37 | RADRPT ---
EXAM DATE/TIME: 07/10/2016 15:03 [place] COMPARISON: No previous studies available for comparison. INDICATIONS : Altered mental status. Post AAA repair. MEDICAL HISTORY : Hypertension. Hepatitis C. Cardiovascular disease. SURGICAL HISTORY : Abdominal aortic aneurysm repair. ENCOUNTER: Subsequent ACUITY: 4-6 days PAIN SCORE: Nonresponsive. LOCATION: head. TECHNIQUE: Multiplanar, multisequence MRI of the brain was performed without contrast. FINDINGS: MRI of the brain is performed in sagittal, axial and coronal planes. The craniocervical junction and midline structures are unremarkable. Diffusion weighted images demonstrate a small area of restricted diffusion in the left cerebellar hemisphere characteristic of infarct with small punctate areas in t he suarez radiata as well suggesting this may be embolic in nature. Susceptibility weighted imaging d emonstrates multiple punctate areas of hemorrhage suspicious for amyloid angiopathy. There is no evid ence of acute cortical infarction, acute hemorrhage, mass effect or midline shift is seen. There is p eriventricular hyperintensity on the T2 weighted images consistent with small vessel vascular disease slightly more than expected in a patient of this age with involvement of the kathrine as well.. Posterio r fossa structures are unremarkable. CONCLUSION: 1. Small punctate infarcts involving the left cerebellar hemisphere and deep white matter bilaterally in this patient with a background of amyloid angiopathy. No acute hemorrhage is seen. Abhijeet Salinas MD on July 10, 2016 at 16:32 Board Certified Radiologist. This report was verified electronically.
--- NOTE | 2016-07-10 18:42 | HHI.NPPN ---
Subjective History of Present Illness This patient is a 60-year-old male apparently with a history of previous alcohol and crack usage also has a history of hepatitis C, coronary disease and hypertension as well as medical noncompliance. Patient was admitted with a type B aortic dissection. CTA thoracic aorta and abdominal aorta performed July 04, 2016 revealed unoccluded right renal artery as well as perfusion only to the left posterior aspect of the left kidney. Patient status post emergent TAVA, left lower extremity fasciectomy mention of previous nonperfusion to that extremity. Patient's creatinine level was within normal range from previous records prior to this admission however patient had evidence of renal sufficiency on presentation and his creatinine level has continued to rise to a level of 4.75 Date of Consultation with marginal urine output. Interval History Pt remains intubated No change in status as per discussion with RN (Paty Rizo) Review of Systems General General Remarks Unobtainable because of clinical status. (Paty Rizo) Objective Data Data 07/09/16 07/10/16 19:00 07:00 Intake Total 635 ml 1275 ml Output Total 360 ml 981 ml Balance 275 ml 294 ml Intake IV Total 138 ml 357 ml Tube Feeding 377 ml 708 ml Tube Irrigant 120 ml 210 ml Output Urine Total 360 ml 981 ml # Bowel Movements 0 0 Vital Signs Date Time Temp Pulse Resp B/P Pulse Ox O2 Delivery O2 Flow Rate FiO2 07/10/16 16:26 93 35 07/10/16 16:00 98.4 58 18 146/49 95 07/10/16 16:00 58 07/10/16 16:00 40 07/10/16 16:00 146/49 07/10/16 14:30 100 100 07/10/16 14:00 160/72 07/10/16 14:00 62 07/10/16 12:00 99.0 56 18 134/49 94 07/10/16 12:00 40 07/10/16 12:00 134/49 07/10/16 12:00 56 07/10/16 11:16 96 35 07/10/16 10:00 60 07/10/16 10:00 154/52 07/10/16 08:00 98.8 58 18 171/57 97 07/10/16 08:00 60 07/10/16 08:00 40 07/10/16 08:00 171/57 07/10/16 07:26 97 35 07/10/16 07:00 97 Mechanical Ventilator 35 07/10/16 06:00 150/54 07/10/16 06:00 60 07/10/16 04:01 96 35 07/10/16 04:00 40 07/10/16 04:00 54 07/10/16 04:00 147/51 07/10/16 04:00 97.7 54 18 147/51 95 07/10/16 02:00 55 07/10/16 02:00 163/57 07/10/16 01:31 100 35 07/10/16 00:00 51 07/10/16 00:00 166/59 07/10/16 00:00 97.8 51 18 166/59 98 07/10/16 00:00 40 07/09/16 22:16 98 35 07/09/16 22:00 147/55 07/09/16 22:00 50 07/09/16 20:00 40 07/09/16 20:00 97 Mechanical Ventilator 35 07/09/16 20:00 96.8 50 18 178/63 97 07/09/16 20:00 50 07/09/16 20:00 178/63 07/09/16 19:40 97 35 (Paty Rizo) -: 07/10/16 0454 07/10/16 0454 Medication Review Current Medications Medications (Trade) Dose Ordered Sig/Sascha Route Start Time Stop Time Status Last Admin (Peridex 0.12% Liq) 15 ml BID@08,20 MT 07/05/16 08:00 07/10/16 08:00 (D50w (Vial) Inj) 25 ml UNSCH PRN IV PUSH 07/04/16 22:45 (NovoLIN R SUPPLEMENTAL SCALE) 1 Q6HR SQ 07/05/16 00:00 07/09/16 18:00 (Vitamin B1) 100 mg DAILY PO 07/08/16 09:00 07/10/16 09:00 (Theragran) 1 tab DAILY PO 07/05/16 09:00 07/10/16 09:26 (NS Flush) 2 ml UNSCH PRN IV FLUSH 07/04/16 22:45 (NS Flush) 2 ml BID IV FLUSH 07/05/16 09:00 07/10/16 09:00 (Tylenol) 650 mg Q6H PRN PO 07/04/16 22:45 (Protonix Inj) 40 mg DAILY IV 07/05/16 09:00 07/10/16 09:00 (Zofran Inj) 4 mg Q6H PRN IV 07/04/16 22:45 (Stephie-Colace) 2 tab BID PO 07/05/16 09:00 07/10/16 09:25 Miscellaneous Information 1 Q361D XX 07/04/16 22:45 (Chlorhexidine 2% Cloth) Taper DAILY@04 TOP 07/05/16 04:00 07/01/17 03:59 07/09/16 04:51 Chlorhexidine Gluconate 3 pack 3 pack UNSCH PRN TOP 07/04/16 22:45 (Levophed-Dextrose Drip) 250 ml @ 0 mls/hr TITRATE IV 07/05/16 18:30 07/09/16 21:06 (Haldol Inj) 5 mg Q4H PRN IV 07/06/16 13:30 07/06/16 14:04 (Ativan Inj) 1 mg Q15M PRN IV PUSH 07/06/16 13:30 07/06/16 14:05 (Melatonin) 5 mg HS PO 07/06/16 21:00 07/09/16 21:07 Fentanyl Citrate 25 mcg 25 mcg Q30M PRN IV PUSH 07/06/16 13:45 07/07/16 09:03 Propofol 100 ml @ 0 mls/hr TITRATE IV 07/06/16 22:45 07/10/16 14:17 (fentaNYL DRIP) 250 ml @ 0 mls/hr TITRATE IV 07/06/16 22:45 07/09/16 21:06 (Valium) 5 mg Taper Q8HR PO 07/07/16 07:30 07/15/16 07:29 07/10/16 14:17 (Phoslo) 2,668 mg TID PO 07/07/16 09:00 07/10/16 17:29 (Pill Splitter) 1 ea UNSCH PRN OTHER 07/07/16 07:30 (Heparin Inj) 5,000 units Q8H SQ 07/08/16 20:00 07/10/16 11:55 (Zanaflex) 2 mg Q12H PO 07/10/16 02:00 07/10/16 14:17 (Lactulose Liq) 30 ml QID PO 07/10/16 09:00 07/10/16 23:59 07/10/16 17:29 (Miralax) 17 gm BID OG-TUBE 07/10/16 09:00 07/10/16 09:25 (Glycerin Adult Supp) 2 gm DAILY PRN RECTAL 07/10/16 08:15 (SEROquel) 50 mg Q8HR PO 07/10/16 14:00 07/10/16 14:17 (Tears Naturale Opth Soln) 1 drop Q8HR EACH EYE 07/10/16 14:00 07/10/16 14:00 (Paty Rizo) Physical Exam General Appearance: No Acute Distress, Comfortable (Paty Rizo) Pulmonary Resp Exam: Clear Bilaterally, Breath Sounds Equal, No Distress (Paty Rizo) Cardiology CV Exam: Regular, Normal Sinus Rhythm (Paty Rizo) Gastrointestinal/Abdomen GI Exam: Soft, Non-Tender (Paty Rizo) Integumentary Skin Exam: Clear, Warm (Paty Rizo) Neurologic Neuro Exam: Sedated (Paty Rizo) Assessment/Plan Problem List: (1) Acute kidney insufficiency Plan: Patient most likely has sustained severe ischemic injuries to both kidneys as a result of dissection involving renal arteries. Patient's creatinine level has risen but not severely and urine output appears to be improving No indication to initiate dialysis today but continue to monitor patient's metabolic status, renal indices and urine output. Medications should be adjusted for the patient's estimated GFR if clinically indicated. Avoid agents with significant potential for nephrotoxicity possible including NSAIDs for analgesia, iodine contrast agents if possible. Gadolinium is contraindicated if the GFR is below 30. (2) Hepatitis C Plan: Not playing a role as far as his acute renal failure is concerned in this setting. (3) HTN (hypertension) (4) Hyperphosphatemia Plan: Secondary to renal failure. Noted phosphate binder started. (Paty Rizo) Plan The exam, history, and the medical decision-making described in the above note were completed with the assistance of the SARAH. I reviewed and agree with the findings presented. (Eufemia Walters MD) Paty Rizo Jul 10, 2016 18:42 Eufemia Walters MD Jul 10, 2016 19:05
[2016-07-10] MEDS: MELATONIN 5 MG TAB PO SCH (21:00)
--- NOTE | 2016-07-10 23:19 | MG ---
cc: JROGE GILES Sex: [id number] MEDICATIONS: Diprivan Fentanyl Heparin Lopressor HISTORY: Headache, alcohol use. DESCRIPTION: The recording shows diffuse 8 hertz rhythm which is synchronous and symmetric. Some mild theta slowing was seen. This likely appears to be medication effect. No focal abnormalities are noted. No seizure activity was seen. Photic stimulation is performed without significant posterior driving. Hyperventilation not performed. IMPRESSION: A generally unremarkable recording. Some mild medication effect, but no focal abnormalities were noted. No seizure activity was seen. MD OTTONIEL Christie/MELINDA /10:34 PM /11:16 PM
[2016-07-11] VITALS (19 sets, daily range): BP systolic 130–172; BP diastolic 40–66; PULSE 56–80; RESP 18–20; TEMP 99–100.2; O2SAT 92–100
[2016-07-11] MEDS: PROPOFOL 1000 MG/100 ML INJ 100 ML IV SCH ×3 (02:14→23:50)
[2016-07-11] MEDS: RESP: ALBUTEROL 2.5 MG/IPRATROPIUM 0.5 MG NEB (SCH) INH ×4 (03:19→19:50)
--- NOTE | 2016-07-11 03:53 | RADRPT ---
EXAM DATE/TIME: 07/11/2016 01:55 [facility] COMPARISON: CHEST SINGLE AP, July 07, 2016, 4:38. INDICATIONS : Respiratory distress. MEDICAL HISTORY : Hypertension. Hepatitis C. Cardiovascular disease. SURGICAL HISTORY : Abdominal aortic aneurysm repair. ENCOUNTER: Subsequent ACUITY: 4 - 6 days PAIN SCORE: Non-responsive. LOCATION: Bilateral chest FINDINGS: A single view of the chest demonstrates endotracheal tube in satisfactory position. NG enters stomach . Right central line in superior vena cava. Postop stent graft repair of the thoracic aorta. Basilar airspace disease similar to July 07. Small effusions. CONCLUSION: 1. Stable exam since July 07. Support apparatus in satisfactory position. Basilar airspace disease a nd small pleural effusions remain. Rodriguez Jeff MD on July 11, 2016 at 3:49 Board Certified Radiologist. This report was verified electronically.
[2016-07-11] MEDS: CHLORHEXIDINE GLUCONATE 2 % 1 PACK (2 CLOTHS) TOP SCH (04:00)
[2016-07-11] MEDS: ACETAMINOPHEN 325 MG TAB PO PRN (04:32)
[2016-07-11] MEDS: HEPARIN SODIUM - SQ 10,000 UNITS/ML VIAL SQ SCH ×3 (04:33→20:23)
[2016-07-11 04:55] LABS: HEMATOCRIT 26.7 % (39.0-51.0); MEAN CELL VOLUME 90.9 FL (80.0-100.0); MEAN CORPUSCULAR HEMOGLOBIN 31.9 PG (27.0-34.0); PLATELET COUNT 98 TH/MM3 (150-450); RED BLOOD COUNT 2.93 MIL/MM3 (4.50-5.90); RED CELL DISTRIBUTION WIDTH 13.8 % (11.6-17.2); WHITE BLOOD COUNT 16.2 TH/MM3 (4.0-11.0)
[2016-07-11 04:57] LABS: REVIEW FLAG FINAL
[2016-07-11 05:02] LABS: APTT (PATIENT) 29.4 SEC (24.3-30.1); PROTHROMBIN TIME - PATIENT 10.9 SEC (9.8-11.6)
[2016-07-11] MEDS: ARTIFICIAL TEARS OPTH SOLN 15 ML BTL EACH EYE SCH ×3 (05:09→20:25)
[2016-07-11] MEDS: QUEtiapine FUMARATE 25 MG TAB PO SCH (05:09)
[2016-07-11] MEDS: DIAZEPAM 10 MG TAB PO SCH ×3 (05:09→20:24)
[2016-07-11 05:18] LABS: BICARBONATE 24.2 MEQ/L (21.0-32.0); INDIRECT BILIRUBIN 0.3 MG/DL (0.0-0.8); TOTAL BILIRUBIN ADULT 0.7 MG/DL (0.2-1.0)
[2016-07-11] MEDS: INSULIN NovoLIN REGULAR SUPPLEMENTAL SCALE SQ SCH ×4 (06:00→18:00)
[2016-07-11] MEDS ORDERED: MINERAL OIL LIQUID 30 ML CUP PO ONE (08:00)
[2016-07-11] MEDS ORDERED: METHYLNALTREXONE BROMIDE 12 MG/0.6 ML VIAL SQ ONE (08:00)
[2016-07-11] MEDS: CHLORHEXIDINE 0.12% (ORAL KIT) 15 ML CUP MT SCH ×2 (08:00→20:00)
--- NOTE | 2016-07-11 08:09 | HHI.CCPN ---
Subjective Remarks/Hospital Course Hospital Course: This is a 60-year-old male who is transferred emergently from outside hospital with per report and acute type B dissection. Apparently the patient told his family member today that he had searing back pain and was taken to the emergency department. A CT of the chest at that time showed a type B dissection. The patient was intubated the outside facility and transferred to [place] for emergent evaluation management. Unfortunately, the patient is unable to provide any additional history at this time. I was at bedside and the patient arrived to the surgical intensive care unit. Dr. Long and I both evaluated the patient and when he arrived he was in a junctional bradycardia with heart rate in the 40s. He had obvious ST depressions in lead II on telemetry. Our initial concern was that we have extended the dissection into the type A dissection. We also did not have any CT of the abdomen and pelvis. On her physical exam, the patient had a cold left foot without pulses. I emergently placed a right radial arterial line, please see separate procedure note for details. We then went emergently to the CT scanner for repeat CT aortogram of the chest abdomen and pelvis to investigate the extent to which the dissection has extended. The CT aortogram demonstrated that this was still a type B dissection with the celiac artery being significantly compressed and possibly comprising flow from the dissection flap. The right kidney appears to be perfused off the false lumen and not the true lumen, and there is no contrast going down the left femoral artery. Patient was then brought back to the intensive care unit. His blood pressure is controlled on nicardipine infusion for goal systolic blood pressure less than 110. A 12-lead EKG at that time was done which demonstrated significant ST depressions in the inferior leads as well as the far lateral leads consistent with subendocardial ischemia. At the request of Dr. Long in anticipation of going emergently to the operative theater, I placed a lumbar drain for spinal protection, please see separate procedure note for details. At that point the patient was taken emergently to the operating room. Critical care medicine is been consulted to evaluate and manage the patient's type B dissection, hemodynamic's, acute hypoxic respiratory failure. 07/05: taken to OR for TEVAR overnight. lactate cleared overnight. uop adequate. Cr elevated to 1.8 this AM. He is on Coreg 50 mg by mouth 07/06: oliguric overnight. Cr rising. however, lactate cleared. other markers of end-organ perfusion better. likely ATN from time of dissection. awake following commands. moving bilateral lower extremities. clear CSF in lumbar drain. on intermittent norepinephrine to maintain spinal perfusion. 07/07: extubated yesterday, followed commands, good pulmonary mechanics. However , after extubation, became acutely delirious- probable combination of etoh withdraw and icu delirium, some pain. mental status waxed and waned throughout the day and ultimately reintubated overnight for worsening waning mental status and hypoxia. post-extubation it has been documented that he continues to move his bilateral lower extremities to painful stimuli and spontaneously. does not follow commands this morning. troponins downtrending. cardiology evaluated the patient yesterday, formal note pending, but per my conversation, plan was for ongoing conservative management as we are doing, and plan for nuc med stress test when stable. 07/08: still moving bilateral LEs spontaneously and w/d to pain. remains intubated with persistent agitation. hypoxia improving. platelets continue to fall, likely a combination of consumption, BUBBA, liver disease. will give unit of platelets prior to d/c lumbar drain. 07/09: Troponin spill resolving without evidence of ongoing injury. Major obstacle is agitation related to ETOH withdrawal followed by necessary sedation. Continue to work toward vent weaning. 07/10: Afebrile. Not following commands. Continues to be agitated for reasons above. Tolerating tube feeding at goal rate. Creatinine hopefully has plateaued. Subjective: 07/11: CURRENT TEMPERATURE 100.2. MRI brain yesterday revealed left cellular restricted diffusion area likely acute infarct with small punctate areas within the coronal radiata possibly embolic event. Patient is arousable and will move all 4 extremities but not following commands. Left foot remains cool. Tolerating tube feeding. No bowel movement times 4 days. Objective Vital Signs Date Time Temp Pulse Resp B/P Pulse Ox O2 Delivery O2 Flow Rate FiO2 07/11/16 07:36 92 35 07/11/16 06:00 66 07/11/16 06:00 168/54 07/11/16 04:00 100.2 19 07/10/16 19:00 Mechanical Ventilator Intake and Output 07/10/16 07/10/16 07/11/16 08:00 16:00 00:00 Intake Total 636 ml 688 ml 758 ml Output Total 507 ml 600 ml 500 ml Balance 129 ml 88 ml 258 ml Result Diagram: 07/11/16 0442 07/11/16 0442 Imaging Last Impressions Chest X-Ray 07/11/16 0600 Signed Impressions: Service Date/Time: June 01:55 - CONCLUSION: 1. Stable exam since July 07. Support apparatus in satisfactory position. Basilar airspace disease and small pleural effusions remain. Rodriguez Jeff MD Brain MRI 07/10/16 0000 Signed Impressions: Service Date/Time: Sunday, July 10, 2016 15:03 - CONCLUSION: 1. Small punctate infarcts involving the left cerebellar hemisphere and deep white matter bilaterally in this patient with a background of amyloid angiopathy. No acute hemorrhage is seen. Abhijeet Salinas MD Renal Ultrasound 07/08/16 0000 Signed Impressions: Service Date/Time: Friday, July 08, 2016 17:16 - CONCLUSION: 1. Resistive indices could not be obtained on the right side into the patient's body habitus and shadowing bowel gas. Left renal artery resistive indices are within normal limits. 2. No significant abdominal aortic aneurysm identified status post repair. 3. Probable 7 mm nonobstructing midpole right renal calculus. 4. Tiny left lower pole cyst measuring 1.5 cm. Hamlet Vinson MD Aorta CTA 07/04/16 0000 Signed Impressions: Service Date/Time: June 19:53 - CONCLUSION: 1. Extensive aortic dissection extending from the proximal transverse aorta just distal to the origin of the left subclavian artery. Dissection extends distally through both superficial femoral arteries. 2. Occlusion of the right renal artery with absent perfusion of the right kidney. Dissection of the left renal artery with absent perfusion of the anterior left kidney. 3. 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 4. Occlusion of left external iliac artery and right internal iliac artery. 5. ET tube in satisfactory position. Dependent consolidation in both lungs. Probable mild liver cirrhosis. No obstruction or free fluid. Russell catheter in decompressed bladder. See above discussion. Rodriguez Jeff MD Objective Remarks GENERAL: 60-year-old male, critically ill currently orotracheally intubated HEENT: Normocephalic. Atraumatic. Pupils 3 mm, reactive, conjugate bilaterally. NECK: Trachea is midline. Supple. Right cordis is clean dry and intact. Orotracheally intubated CHEST: Clear to auscultation bilaterally without wheezes rales or rhonchi. CARDIOVASCULAR: RRR. S1, S2 no S4. Without murmur ABDOMEN: Protuberant, reducible. Hypoactive bowel sounds are appreciated MUSCULOSKELETAL: Distal pulses 2+. Left lower extremity fasciotomy site covered with Sandeep wrap. Left foot is cool NEUROLOGICAL: Positive corneal reflex. Positive gag. Withdraws in both upper and LEs to noxious stimuli. Urinary Catheter: Yes Assessment to: Continue Russell insert reason: Prolonged Immobilization Vascular Central Line Catheter: Yes Assessment to: Continue Date of Insertion: Jul 04, 2016 Line: Central Venous Catheter Side: Right Location: Internal, Jugular A/P Assessment and Plan Neuro/Psych: Left cerebellar lacunar infarct Severe Agitated Delirium Alcohol Withdrawal - up to 15 beers daily Risk for spinal cord hypoperfusion Alcohol abuse History of polysubstance abuse including crack cocaine Lumbar drain placement - removed 07/08 Insomnia Propofol at 20 mcg/kg/m and, fentanyl at 25 mg an hour for sedation/analgesia while intubated -- Goal RASS -2 --Daily sedation vacation On melatonin 5 mg at night as needed for insomnia Daily thiamine 100 mg daily for EtOH use MRI brain 07/10 revealed left cerebellar cystic diffusion region with small punctate areas in the suarez radiata likely embolic. Possible amyloid. MRA head/neck pending EEG 07/10 revealed no seizure activity Delirium/Withdraw regimen: --Tizanidine 2mg po BID for pain adjuvant and to help with delirium --Seroquel 50mg po q8hr for delirium. Will wean to 25 every 8. --Haldol 5mg iv q4h prn for breakthrough agitation. --Valium 5mg po q8hr for etoh withdraw, start slow taper over 1 week. --Ativan 1mg iv q15min prn for withdraw symptoms --continue to avoid Precedex for now given recent junctional bradycardia, NSTEMI , and need for continued spinal cord protection with goal systolic blood pressure of 140 to 160 recommended per vascular surgery. Respiratory: Acute hypoxic and hypercarbic respiratory failure -- PRVC 18/550/0.8/5/35 Vent bundle Bronchodilator therapy every 6 hours and albuterol every 2 hours when needed Head of bed 30 will attempt SAT/SBT to see if the agitation is under better control. Wean FiO2 for goal SPO2 greater than 92% Follow-up a.m. chest x-ray Cardiovascular: Postop day #7 T4 with left lower x-ray fasciotomy secondary to type B aortic dissection with renal/visceral and left lower extreme L perfusion Thoracic endovascular stent with left lower extremity fasciotomy/ compartments with [address] Long Acute type B dissection- secured Type II NSTEMI- Demand Ischemia- resolving Junction bradycardia- resolved. Lactic Acidosis- resolved. Goal map > 80/SBP > 140 for spinal cordprotection -- troponin downtrending. 6.81 -- elevated troponins likely combination of demand ischemia and poor renal clearance -- Cardiology: Dr. Mondragon following. plan for conservative management with myocardial perfusion scan when stable. -- 2d echo: EF 55%, no RWMA. 2-D echo 07/08 repeat EF 60-65%. Mild MR. At [facility] dilated. RENO 49 mmHg --Cardiac output currently is 7.3. SVV is 5 -- continue norepinephrine to maintain spinal perfusion currently at 2 g per minute. Renal: Acute kidney injury Acute Tubular Necrosis Right nephrolithiasis Likely secondary to hypoperfusion of the kidney from dissection, ATN -- FENa 07/07 1.2% consistent with ATN. Urine eos negative. Urine urea ordered -- order renal ultrasound with doppler. Revealed patent renal arteries bilaterally. Tiny 7 mm right renal calculus and 1.5 cm left renal cyst. -- Strict I/Os Russell placement to be maintained --nephrology consult 07/08 appreciated. No indication for dialysis at this point Avoid nephrotoxins drugs He was slowly rising currently 120. Creatinine has decreased 5.4 FEN/GI: Acute protein calorie malnutrition- mild Non-anion gap metabolic acidosis- resolved. Hyperphosphatemia Hyper-magnesium Hyponatremia History of peptic ulcer disease Hepatitis C -from IV drug use Elevated AST TF: Nepro at goal 40 cc an hour --nutrition consult. Daily BMP --Currently on PhosLo 2668 mg 3 times a day for hyperphosphatemia Protonix for GI prophylaxis. Stephie-Colace twice a day for bowel regimen. MiraLAX twice a day lactulose 4 times daily. 1 dose of methylnaltrexone today. Heme/ID: Leukocytosislikely reactive Acute Blood Loss Anemia Thrombocytopenia Daily CBC No infectious etiology suspected this time Daily coags --thrombocytopenia is likely multifactorial from liver disease, consumptive from critical illness and dissection. We'll send off cultures. Consider changing right Cordis today Endocrine: Hyperglycemia of critical illness -- SSI, medium scale, every 6 hours Prophylaxis: GI Prophylaxis Protonix 40 mg IV every 24 DVT Prophylaxis -- SCDs/heparin The patient may receive heparin subcutaneous every 12. Patient may additionally receive aspirin, but not Plavix. Lines: 07/04 right radial arterial line --07/04 right IJ cortis Critical Care: The total critical care time was 35 minutes. Time to perform other separately billable procedures was not included in the critical care time. Chris Helton MD Jul 11, 2016 08:09
[2016-07-11] MEDS: MULTIVITAMIN TAB PO SCH (08:12)
[2016-07-11] MEDS: DOCUSATE SODIUM 50 MG/SENNA 8.6 MG TAB PO SCH ×2 (08:12→20:24)
[2016-07-11] MEDS: CALCIUM ACETATE 667 MG CAP PO SCH ×2 (08:12→18:55)
[2016-07-11] MEDS: THIAMINE HCL 100 MG TAB PO SCH (08:12)
[2016-07-11] MEDS: PANTOPRAZOLE SODIUM 40 MG VIAL IV SCH (08:13)
[2016-07-11] MEDS: POLYETHYLENE GLYCOL 17 GM PKG OG-TUBE SCH ×2 (08:13→20:24)
[2016-07-11] MEDS: SODIUM CHLORIDE 0.9% FLUSH 10 ML FLUSH IV FLUSH SCH ×2 (09:00→20:24)
[2016-07-11] MEDS: LACTULOSE SYRUP 20 GM/30 ML CUP PO SCH ×3 (09:13→20:23)
[2016-07-11 09:48] LABS: BACTERIA, URINE RARE /hpf; BLOOD, URINE MOD (NEG); GLUCOSE,URINE NEG (NEG); GRANULAR CAST, URINE 1 /lpf; KETONE, URINE NEG (NEG); MUCUS URINE FEW /lpf (OCC); NITRITE,URINE NEG (NEG); PH, URINE 5.5 (5.0-8.5); SQUAMOUS EPITHELIAL CELL URINE 1 /hpf (0-5); URINE COLOR YELLOW (YELLW/STRAW)
[2016-07-11 09:49] LABS: COMMENT (UR) CATH-CULTURE IND; CULTURE IF INDICATED CATH CULTURE IND
--- NOTE | 2016-07-11 10:00 | HHI.NPPN ---
Subjective History of Present Illness This patient is a 60-year-old male apparently with a history of previous alcohol and crack usage also has a history of hepatitis C, coronary disease and hypertension as well as medical noncompliance. Patient was admitted with a type B aortic dissection. CTA thoracic aorta and abdominal aorta performed July 04, 2016 revealed unoccluded right renal artery as well as perfusion only to the left posterior aspect of the left kidney. Patient status post emergent TAVA, left lower extremity fasciectomy mention of previous nonperfusion to that extremity. Patient's creatinine level was within normal range from previous records prior to this admission however patient had evidence of renal sufficiency on presentation and his creatinine level has continued to rise to a level of 4.75 Date of Consultation with marginal urine output. Interval History No changes (Paty Rizo) Review of Systems General General Remarks Unobtainable because of clinical status. (Paty Rizo) Objective Data Data 07/10/16 07/11/16 19:00 07:00 Intake Total 688 ml 1465 ml Output Total 600 ml 1000 ml Balance 88 ml 465 ml Intake IV Total 226 ml 491 ml Tube Feeding 342 ml 514 ml Tube Irrigant 120 ml 460 ml Output Urine Total 600 ml 1000 ml # Bowel Movements 0 0 Vital Signs Date Time Temp Pulse Resp B/P Pulse Ox O2 Delivery O2 Flow Rate FiO2 07/11/16 07:36 92 35 07/11/16 06:00 66 07/11/16 06:00 168/54 07/11/16 04:00 40 07/11/16 04:00 161/54 07/11/16 04:00 64 07/11/16 04:00 100.2 64 19 161/45 95 07/11/16 03:33 100 35 07/11/16 02:00 164/50 07/11/16 02:00 62 07/11/16 00:00 172/56 07/11/16 00:00 66 07/11/16 00:00 40 07/11/16 00:00 99.0 66 20 172/56 97 07/10/16 23:12 98 35 07/10/16 22:00 167/54 07/10/16 22:00 55 07/10/16 20:00 40 07/10/16 20:00 55 07/10/16 20:00 98.2 55 18 166/57 97 07/10/16 20:00 166/57 07/10/16 19:36 97 35 07/10/16 19:00 97 Mechanical Ventilator 35 07/10/16 18:00 54 07/10/16 18:00 160/50 07/10/16 16:26 93 35 07/10/16 16:00 98.4 58 18 146/49 95 07/10/16 16:00 58 07/10/16 16:00 40 07/10/16 16:00 146/49 07/10/16 14:30 100 100 07/10/16 14:00 160/72 07/10/16 14:00 62 07/10/16 12:00 99.0 56 18 134/49 94 07/10/16 12:00 40 07/10/16 12:00 134/49 07/10/16 12:00 56 07/10/16 11:16 96 35 07/10/16 10:00 60 07/10/16 10:00 154/52 (Paty Rizo) -: 07/11/16 0442 07/11/16 0442 Microbiology 07/11/16 Gram Stain, Received Pending 07/11/16 Sputum Culture, Received Pending 07/11/16 Urine Culture, Received Pending Medication Review Current Medications Medications (Trade) Dose Ordered Sig/Sascha Route Start Time Stop Time Status Last Admin (Peridex 0.12% Liq) 15 ml BID@08,20 MT 07/05/16 08:00 07/11/16 08:00 (D50w (Vial) Inj) 25 ml UNSCH PRN IV PUSH 07/04/16 22:45 (NovoLIN R SUPPLEMENTAL SCALE) 1 Q6HR SQ 07/05/16 00:00 07/09/16 18:00 (Vitamin B1) 100 mg DAILY PO 07/08/16 09:00 07/11/16 08:12 (Theragran) 1 tab DAILY PO 07/05/16 09:00 07/11/16 08:12 (NS Flush) 2 ml UNSCH PRN IV FLUSH 07/04/16 22:45 (NS Flush) 2 ml BID IV FLUSH 07/05/16 09:00 07/11/16 09:00 (Tylenol) 650 mg Q6H PRN PO 07/04/16 22:45 3/30/17 04:32 (Protonix Inj) 40 mg DAILY IV 07/05/16 09:00 07/11/16 08:13 (Zofran Inj) 4 mg Q6H PRN IV 07/04/16 22:45 (Stephie-Colace) 2 tab BID PO 07/05/16 09:00 07/11/16 08:12 Miscellaneous Information 1 Q361D XX 07/04/16 22:45 (Chlorhexidine 2% Cloth) Taper DAILY@04 TOP 07/05/16 04:00 07/01/17 03:59 07/09/16 04:51 Chlorhexidine Gluconate 3 pack 3 pack UNSCH PRN TOP 07/04/16 22:45 (Levophed-Dextrose Drip) 250 ml @ 0 mls/hr TITRATE IV 07/05/16 18:30 07/09/16 21:06 (Haldol Inj) 5 mg Q4H PRN IV 07/06/16 13:30 07/06/16 14:04 (Ativan Inj) 1 mg Q15M PRN IV PUSH 07/06/16 13:30 07/06/16 14:05 (Melatonin) 5 mg HS PO 07/06/16 21:00 07/10/16 21:00 Fentanyl Citrate 25 mcg 25 mcg Q30M PRN IV PUSH 07/06/16 13:45 07/07/16 09:03 Propofol 100 ml @ 0 mls/hr TITRATE IV 07/06/16 22:45 07/11/16 08:17 (fentaNYL DRIP) 250 ml @ 0 mls/hr TITRATE IV 07/06/16 22:45 07/09/16 21:06 (Valium) 5 mg Taper Q12HR PO 07/07/16 07:30 07/15/16 07:29 07/11/16 05:09 (Phoslo) 2,668 mg TID PO 07/07/16 09:00 07/11/16 08:12 (Pill Splitter) 1 ea UNSCH PRN OTHER 07/07/16 07:30 (Heparin Inj) 5,000 units Q8H SQ 07/08/16 20:00 07/11/16 04:33 (Zanaflex) 2 mg Q12H PO 07/10/16 02:00 07/11/16 01:04 (Miralax) 17 gm BID OG-TUBE 07/10/16 09:00 07/11/16 08:13 (Glycerin Adult Supp) 2 gm DAILY PRN RECTAL 07/10/16 08:15 (Tears Naturale Opth Soln) 1 drop Q8HR EACH EYE 07/10/16 14:00 07/11/16 05:09 (Lactulose Liq) 30 ml QID PO 07/11/16 09:00 07/11/16 09:13 (SEROquel) 50 mg BID PO 07/11/16 21:00 (Paty Rizo) Physical Exam General Appearance: No Acute Distress, Comfortable (Paty Rizo) Pulmonary Resp Exam: Clear Bilaterally, Breath Sounds Equal, No Distress (Paty Rizo) Cardiology CV Exam: Regular, Normal Sinus Rhythm (Paty Rizo) Gastrointestinal/Abdomen GI Exam: Soft, Non-Tender (Paty Rizo) Integumentary Skin Exam: Clear, Warm (Paty Rizo) Neurologic Neuro Exam: Sedated (Paty Rizo) Assessment/Plan Problem List: (1) Acute kidney insufficiency Plan: Patient most likely has sustained severe ischemic injuries to both kidneys as a result of dissection involving renal arteries. Today is the first say that SCr has not risen. His UOP is also improving; hopefully this trend will continue. Hopefully dialysis can be avoided. Medications should be adjusted for the patient's estimated GFR if clinically indicated. Avoid agents with significant potential for nephrotoxicity possible including NSAIDs for analgesia, iodine contrast agents if possible. Gadolinium is contraindicated if the GFR is below 30. (2) Hepatitis C Plan: Not playing a role as far as his acute renal failure is concerned in this setting. (3) HTN (hypertension) (4) Hyperphosphatemia Plan: Secondary to renal failure. Noted phosphate binder started. (Paty Rizo) Plan The exam, history, and the medical decision-making described in the above note were completed with the assistance of the PAMarva. I reviewed and agree with the findings presented. (Eufemia Walters MD) Paty Rizo Jul 11, 2016 10:00 Eufemia Walters MD Jul 11, 2016 18:50
--- NOTE | 2016-07-11 10:31 | RADRPT ---
EXAM DATE/TIME: 07/11/2016 09:15 [facility] COMPARISON: No previous studies available for comparison. INDICATIONS : Ileus MEDICAL HISTORY : abdominal aneurysm, hep c, ulcer SURGICAL HISTORY : surgery for abdominal aortic aneurysm ENCOUNTER: Initial ACUITY: 1 week PAIN SCORE: Non-responsive. LOCATION: Bilateral abdomen FINDINGS: 2 AP views of the abdomen. Nasogastric tube is in place with the tip in the stomach. Thoracic aortic stent in place. Gas and stool scattered in the colon. Degenerative findings of the lumbar spine. CONCLUSION: Bowel gas pattern within normal limits. Bladimir Gasca MD on July 11, 2016 at 10:28 Board Certified Radiologist. This report was verified electronically.
--- NOTE | 2016-07-11 10:31 | PD.CARD.PN ---
Subjective Subjective Remarks Intubated, comatose, off sedation, MRI w evidence of CVA Objective Medications Current Medications Medications (Trade) Dose Ordered Sig/Sascha Route Start Time Stop Time Status Last Admin (Peridex 0.12% Liq) 15 ml BID@08,20 MT 07/05/16 08:00 07/11/16 08:00 (D50w (Vial) Inj) 25 ml UNSCH PRN IV PUSH 07/04/16 22:45 (NovoLIN R SUPPLEMENTAL SCALE) 1 Q6HR SQ 07/05/16 00:00 07/09/16 18:00 (Vitamin B1) 100 mg DAILY PO 07/08/16 09:00 07/11/16 08:12 (Theragran) 1 tab DAILY PO 07/05/16 09:00 07/11/16 08:12 (NS Flush) 2 ml UNSCH PRN IV FLUSH 07/04/16 22:45 (NS Flush) 2 ml BID IV FLUSH 07/05/16 09:00 07/11/16 09:00 (Tylenol) 650 mg Q6H PRN PO 07/04/16 22:45 07/11/16 04:32 (Protonix Inj) 40 mg DAILY IV 07/05/16 09:00 07/11/16 08:13 (Zofran Inj) 4 mg Q6H PRN IV 07/04/16 22:45 (Stephie-Colace) 2 tab BID PO 07/05/16 09:00 07/11/16 08:12 Miscellaneous Information 1 Q361D XX 07/04/16 22:45 (Chlorhexidine 2% Cloth) Taper DAILY@04 TOP 07/05/16 04:00 07/01/17 03:59 07/09/16 04:51 Chlorhexidine Gluconate 3 pack 3 pack UNSCH PRN TOP 07/04/16 22:45 (Levophed-Dextrose Drip) 250 ml @ 0 mls/hr TITRATE IV 07/05/16 18:30 07/09/16 21:06 (Haldol Inj) 5 mg Q4H PRN IV 07/06/16 13:30 07/06/16 14:04 (Ativan Inj) 1 mg Q15M PRN IV PUSH 07/06/16 13:30 07/06/16 14:05 (Melatonin) 5 mg HS PO 07/06/16 21:00 07/10/16 21:00 Fentanyl Citrate 25 mcg 25 mcg Q30M PRN IV PUSH 07/06/16 13:45 07/07/16 09:03 Propofol 100 ml @ 0 mls/hr TITRATE IV 07/06/16 22:45 07/11/16 08:17 (fentaNYL DRIP) 250 ml @ 0 mls/hr TITRATE IV 07/06/16 22:45 07/09/16 21:06 (Valium) 5 mg Taper Q12HR PO 07/07/16 07:30 07/15/16 07:29 07/11/16 05:09 (Phoslo) 2,668 mg TID PO 07/07/16 09:00 07/11/16 08:12 (Pill Splitter) 1 ea UNSCH PRN OTHER 07/07/16 07:30 (Heparin Inj) 5,000 units Q8H SQ 07/08/16 20:00 07/11/16 04:33 (Zanaflex) 2 mg Q12H PO 07/10/16 02:00 07/11/16 01:04 (Miralax) 17 gm BID OG-TUBE 07/10/16 09:00 07/11/16 08:13 (Glycerin Adult Supp) 2 gm DAILY PRN RECTAL 07/10/16 08:15 (Tears Naturale Opth Soln) 1 drop Q8HR EACH EYE 07/10/16 14:00 07/11/16 05:09 (Lactulose Liq) 30 ml QID PO 07/11/16 09:00 07/11/16 09:13 (SEROquel) 50 mg BID PO 07/11/16 21:00 Vital Signs / I&O Vital Signs Date Time Temp Pulse Resp B/P Pulse Ox O2 Delivery O2 Flow Rate FiO2 07/11/16 07:36 92 35 07/11/16 07:00 93 Mechanical Ventilator 35 07/11/16 06:00 66 07/11/16 06:00 168/54 07/11/16 04:00 40 07/11/16 04:00 161/54 07/11/16 04:00 64 07/11/16 04:00 100.2 64 19 161/45 95 07/11/16 03:33 100 35 07/11/16 02:00 164/50 3/30/17 02:00 62 07/11/16 00:00 172/56 07/11/16 00:00 66 07/11/16 00:00 40 07/11/16 00:00 99.0 66 20 172/56 97 07/10/16 23:12 98 35 07/10/16 22:00 167/54 07/10/16 22:00 55 07/10/16 20:00 40 07/10/16 20:00 55 07/10/16 20:00 98.2 55 18 166/57 97 07/10/16 20:00 166/57 07/10/16 19:36 97 35 07/10/16 19:00 97 Mechanical Ventilator 35 07/10/16 18:00 54 07/10/16 18:00 160/50 07/10/16 16:26 93 35 07/10/16 16:00 98.4 58 18 146/49 95 07/10/16 16:00 58 07/10/16 16:00 40 07/10/16 16:00 146/49 07/10/16 14:30 100 100 07/10/16 14:00 160/72 07/10/16 14:00 62 07/10/16 12:00 99.0 56 18 134/49 94 07/10/16 12:00 40 07/10/16 12:00 134/49 07/10/16 12:00 56 07/10/16 11:16 96 35 I/O 07/10/16 07/10/16 07/10/16 07/11/16 07/11/16 07/11/16 07:00 15:00 23:00 07:00 15:00 23:00 Intake Total 636 ml 688 ml 758 ml 707 ml Output Total 507 ml 600 ml 500 ml 500 ml Balance 129 ml 88 ml 258 ml 207 ml Intake IV Total 190 ml 226 ml 298 ml 193 ml Tube Feeding 356 ml 342 ml 200 ml 314 ml Tube Irrigant 90 ml 120 ml 260 ml 200 ml Output Urine Total 507 ml 600 ml 500 ml 500 ml # Bowel Movements 0 0 0 0 Physical Exam GENERAL: Intubated, sedated SKIN: Warm and dry. HEAD: Normocephalic. EYES: No scleral icterus. No injection or drainage. NECK: Supple, trachea midline. No JVD or lymphadenopathy. CARDIOVASCULAR: Regular rate and rhythm without murmurs, gallops, or rubs. RESPIRATORY: Breath sounds equal bilaterally. No accessory muscle use. GASTROINTESTINAL: Abdomen soft, non-tender, nondistended. MUSCULOSKELETAL: No cyanosis, mild edema, good distal perfusion Laboratory Laboratory Tests Test 07/11/16 07/11/16 04:42 09:05 White Blood Count 16.2 TH/MM3 Red Blood Count 2.93 MIL/MM3 Hemoglobin 9.3 GM/DL Hematocrit 26.7 % Mean Corpuscular Volume 90.9 FL Mean Corpuscular Hemoglobin 31.9 PG Mean Corpuscular Hemoglobin 35.0 % Concent Red Cell Distribution Width 13.8 % Platelet Count 98 TH/MM3 Mean Platelet Volume 10.6 FL Prothrombin Time 10.9 SEC Prothromb Time International 1.0 RATIO Ratio Activated Partial 29.4 SEC Thromboplast Time Sodium Level 136 MEQ/L Potassium Level 5.0 MEQ/L Chloride Level 99 MEQ/L Carbon Dioxide Level 24.2 MEQ/L Anion Gap 13 MEQ/L Blood Urea Nitrogen 128 MG/DL Creatinine 5.36 MG/DL Estimat Glomerular Filtration 11 ML/MIN Rate Random Glucose 114 MG/DL Calcium Level 8.4 MG/DL Phosphorus Level 4.9 MG/DL Magnesium Level 3.0 MG/DL Total Bilirubin 0.7 MG/DL Direct Bilirubin 0.4 MG/DL Indirect Bilirubin 0.3 MG/DL Aspartate Amino Transf 71 U/L (AST/SGOT) Alanine Aminotransferase 41 U/L (ALT/SGPT) Alkaline Phosphatase 110 U/L Total Protein 5.9 GM/DL Albumin 2.2 GM/DL Urine Color YELLOW Urine Turbidity HAZY Urine pH 5.5 Urine Specific [place] 1.016 Urine Protein 30 mg/dL Urine Glucose (UA) NEG mg/dL Urine Ketones NEG mg/dL Urine Occult Blood MOD Urine Nitrite NEG Urine Bilirubin NEG Urine Urobilinogen LESS THAN 2.0 MG/DL Urine Leukocyte Esterase NEG Urine RBC 24 /hpf Urine WBC 5 /hpf Urine Squamous Epithelial 1 /hpf Cells Urine Amorphous Sediment FEW Urine Bacteria RARE /hpf Urine Granular Casts 1 /lpf Urine Mucus FEW /lpf Microscopic Urinalysis Comment CATH-CULTURE IND Imaging Last Impressions Chest X-Ray 07/11/16 0600 Signed Impressions: Service Date/Time: June 01:55 - CONCLUSION: 1. Stable exam since July 07. Support apparatus in satisfactory position. Basilar airspace disease and small pleural effusions remain. Rodriguez Jeff MD Brain MRI 07/10/16 0000 Signed Impressions: Service Date/Time: Sunday, July 10, 2016 15:03 - CONCLUSION: 1. Small punctate infarcts involving the left cerebellar hemisphere and deep white matter bilaterally in this patient with a background of amyloid angiopathy. No acute hemorrhage is seen. Abhijeet Salinas MD Renal Ultrasound 07/08/16 0000 Signed Impressions: Service Date/Time: Friday, July 08, 2016 17:16 - CONCLUSION: 1. Resistive indices could not be obtained on the right side into the patient's body habitus and shadowing bowel gas. Left renal artery resistive indices are within normal limits. 2. No significant abdominal aortic aneurysm identified status post repair. 3. Probable 7 mm nonobstructing midpole right renal calculus. 4. Tiny left lower pole cyst measuring 1.5 cm. Hamlet Vinson MD Aorta CTA 07/04/16 0000 Signed Impressions: Service Date/Time: June 19:53 - CONCLUSION: 1. Extensive aortic dissection extending from the proximal transverse aorta just distal to the origin of the left subclavian artery. Dissection extends distally through both superficial femoral arteries. 2. Occlusion of the right renal artery with absent perfusion of the right kidney. Dissection of the left renal artery with absent perfusion of the anterior left kidney. 3. 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 4. Occlusion of left external iliac artery and right internal iliac artery. 5. ET tube in satisfactory position. Dependent consolidation in both lungs. Probable mild liver cirrhosis. No obstruction or free fluid. Russell catheter in decompressed bladder. See above discussion. Rodriguez Jeff MD Assessment and Plan Problem List: (1) Dissecting aneurysm of thoracic aorta, Carbon type B (2) Respiratory failure (3) Alcohol withdrawal delirium (4) Acute kidney insufficiency (5) Elevated troponin Assessment and Plan Continue ICU care. MRI w evidence of CVA. Neurology evaluation. Serial echos showed well preserved LV systolic fx. No evidence of ACS. No new cardiac issues. Nomi Mondragon MD Jul 11, 2016 10:31
[2016-07-11] MEDS ORDERED: GELATIN 12 MM/7 MM FOAM ONE (11:59)
--- NOTE | 2016-07-11 13:29 | PD.VS.PN ---
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 Creatinine 5.4 today; e'lytes ok ID Antibiotics(date/duration): none ID Cultures: none Heme: Hct 27, plt 98 Vascular: + pulses B LE L lateral fasciotomy less swollen - may be able to close in next day or two; muscle viable Laboratory Laboratory Tests Test 07/11/16 07/11/16 04:42 09:05 White Blood Count 16.2 Red Blood Count 2.93 Hemoglobin 9.3 Hematocrit 26.7 Mean Corpuscular Volume 90.9 Mean Corpuscular Hemoglobin 31.9 Mean Corpuscular Hemoglobin 35.0 Concent Red Cell Distribution Width 13.8 Platelet Count 98 Mean Platelet Volume 10.6 Prothrombin Time 10.9 Prothromb Time International 1.0 Ratio Activated Partial 29.4 Thromboplast Time Sodium Level 136 Potassium Level 5.0 Chloride Level 99 Carbon Dioxide Level 24.2 Anion Gap 13 Blood Urea Nitrogen 128 Creatinine 5.36 Estimat Glomerular Filtration 11 Rate Random Glucose 114 Calcium Level 8.4 Phosphorus Level 4.9 Magnesium Level 3.0 Total Bilirubin 0.7 Direct Bilirubin 0.4 Indirect Bilirubin 0.3 Aspartate Amino Transf 71 (AST/SGOT) Alanine Aminotransferase 41 (ALT/SGPT) Alkaline Phosphatase 110 Total Protein 5.9 Albumin 2.2 Urine Color YELLOW Urine Turbidity HAZY Urine pH 5.5 Urine Specific [place] 1.016 Urine Protein 30 Urine Glucose (UA) NEG Urine Ketones NEG Urine Occult Blood MOD Urine Nitrite NEG Urine Bilirubin NEG Urine Urobilinogen LESS THAN 2.0 Urine Leukocyte Esterase NEG Urine RBC 24 Urine WBC 5 Urine Squamous Epithelial 1 Cells Urine Amorphous Sediment FEW Urine Bacteria RARE Urine Granular Casts 1 Urine Mucus FEW Microscopic Urinalysis Comment CATH-CULTURE IND Date/Time Procedure Status Source Growth 07/11/16 10:05 Aerobic Blood Culture Received Blood Peripheral Pending 07/11/16 10:05 Anaerobic Blood Culture Received Blood Peripheral Pending 07/11/16 09:05 Urine Culture Received Urine Catheterized Urine Pending 07/11/16 09:05 Gram Stain Received Sputum Endotracheal Pending 07/11/16 09:05 Sputum Culture Received Sputum Endotracheal Pending Imaging Last 48 hours Impressions Chest X-Ray 07/11/16 0600 Signed Impressions: Service Date/Time: June 01:55 - CONCLUSION: 1. Stable exam since July 07. Support apparatus in satisfactory position. Basilar airspace disease and small pleural effusions remain. Rodriguez Jeff MD Abdomen X-Ray 07/11/16 0000 Signed Impressions: Service Date/Time: June 09:15 - CONCLUSION: Bowel gas pattern within normal limits. Bladimir Gasca MD Brain MRI 07/10/16 0000 Signed Impressions: Service Date/Time: Sunday, July 10, 2016 15:03 - CONCLUSION: 1. Small punctate infarcts involving the left cerebellar hemisphere and deep white matter bilaterally in this patient with a background of amyloid angiopathy. No acute hemorrhage is seen. Abhijeet Salinas MD Assessment and Plan Plan POD#7 s/p TEVAR and L LE fasciotomy Expected ATN - maybe resolving; stable vent 1. Neuro: MENSAH; CVA on MRI; will continue to lighten sedation and see if he follows commants; no focal deficits. 2. Resp: wean vent as tolerated 3. CV: Goal SBP 140 for SCI protection 4. FEN/GI: TF ok (Nepro); Monitor e'lytes. TF at goal 5. : ATN; will avoid nephrotoxic meds, exogenous K. Renal duplex looked great. No need for HD. Recheck creatinine tomorrow. 6. ID: no issues 7. Heme: Hct stable (27). 8. endocrine: SSI as per ICU team 9. continue pulse checks - perfusion to LLE restored with TEVAR 10. Continue wound care on lateral fasciotomy. 11. ALTERNATIVE CODE: NO CHEST COMPRESSIONS and NO CARDIOVERSION. Otherwise, continue all current levels of care. Discussed with ICU team. Hamlet Long MD FACS anesthesiology physician assistant [facility] - Heart and Vascular Surgery at [facility] [phone] Hamlet Long MD Jul 11, 2016 13:29
--- NOTE | 2016-07-11 15:17 | RADRPT ---
EXAM DATE/TIME: 07/11/2016 14:29 [facility] COMPARISON: No previous studies available for comparison. INDICATIONS : Altered mental status. Status post AAA repair. MEDICAL HISTORY : Hepatitis C. Hypertension. Cardiovascular disease. SURGICAL HISTORY : Abdominal aortic aneurysm repair. ENCOUNTER: Subsequent ACUITY: 2 day PAIN SCORE: Nonresponsive. LOCATION: Head. Please note a normal MRA of the brain does not entirely exclude the possibility of a small aneurysm, nor the possibility of distal intracranial vessel disease. TECHNIQUE: 3D time of flight MRA was performed. Source images, multiplanar STS MIP, and 3D volume MIP reconstru ctions were reviewed. FINDINGS: Moderate severity focal stenosis of the mid right posterior cerebral artery measuring 2 mm in length. Focal moderate to high-grade stenosis of a temporal branch of the left MCA measuring 1-2 mm in lengt h. Absent A1 segment on the right. The anterior cerebral artery on the right is fed by anterior commu ting artery. Small bilateral posterior commuting arteries. No evidence of proximal high grade stenosi s or aneurysm. Vertebral arteries are codominant. CONCLUSION: 1. 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 2. No proximal high grade stenosis or aneurysm. lBadimir Gasca MD on July 11, 2016 at 15:11 Board Certified Radiologist. This report was verified electronically.
--- NOTE | 2016-07-11 15:30 | MB ---
cc: SAYRA GONZALEZ DATE OF CONSULTATION: 07/11/2016 REASON FOR CONSULTATION: Stroke. HISTORY OF PRESENT ILLNESS Mr. Trujillo is a 60-year-old man who is admitted to the hospital on 07/04 after sustaining a type B aortic dissection which was discovered after he came to the ER after he had severe back pain and initially presented to an outside facility and a CT of the chest indicated aortic dissection. The patient underwent an emergent TEVAR procedure. Prior to that a lumbar drain was placed for spinal protection. The patient also sustained a myocardial infarction and also acute renal failure. He underwent evaluation with an MRI scan of the brain which shows several small punctate infarctions of the left cerebellar hemisphere in deep white matter bilaterally and with probable embolic angiopathy, even seen in the diffusion images suggesting acute infarctions, susceptibility images showed multiple punctate areas of hemorrhage as well suspicious for amyloid angiopathy. No acute hemorrhage was identified. The changes on the susceptibility images appear to be chronic. There were evidence on T2 images of ischemic demyelinization as well which again appeared to be chronic in nature. MEDICATIONS Current medications are 1. Seroquel 50 mg b.i.d. 2. lactulose. 3. Artificial tears. 4. Albuterol nebulizer. 5. Tizanidine 2 mg q.12 h 6. 5000 units of Subcu Heparin q.8 h. 7. Vitamin B1. 8. Valium. 9. Propofol 10. Melatonin. 11. Fentanyl. 12. Haldol p.r.n. 13. Ativan p.r.n. 14. Protonix 40 mg IV daily. NEUROLOGIC EXAMINATION VITAL SIGNS: Blood pressure is 164/52, pulse is 66, respiratory rate 19, temperature 90 degrees. Higher cortical function. He patient is sedated the present time and Cranial nerves: The pupils are 2 mm symmetric, reactive. Extraocular movements intact to doll's eyes maneuver. Motor exam he has no spontaneous limb movement. There is no posturing. Reflexes 1+ symmetric. LABORATORY DATA The white count is 16,002, hemoglobin 9.3, hematocrit 26.7%, platelets 98,000. Sodium is 136, potassium 5, chloride 99, CO2 24.2, BUN is 128, creatinine 5.36, glucose 114, Troponin 6.81. IMPRESSION Multiple bilateral very tiny punctate infarctions involving the left cerebellar hemisphere, as well as suarez radiata is probably embolic in nature. Also areas suspicious of the M1 angiopathy. RECOMMENDATIONS The patient down this way presently for MR angiography of the carotid arteries and vertebral arteries which I agree to rule out any potential source. Also recommend trying the patient on aspirin therapy rectally 300 mg daily. If not contraindicated. He did have an echocardiogram which is reviewed showing an ejection fraction of 60-65%, mild dilation of the left atrium. Tricuspid valve had trace regurgitation. Mitral valve mild regurgitation. Aortic valve no stenosis. No significant regurgitation. MD BIANCA Calhoun/whitney /2:18 PM /3:14 PM
--- NOTE | 2016-07-11 16:34 | RADRPT ---
EXAM DATE/TIME: 07/11/2016 14:29 [facility] COMPARISON: No previous studies available for comparison. INDICATIONS : Altered mental status. Status post AAA repair. MEDICAL HISTORY : Hepatitis C. Hypertension. Cardiovascular disease. SURGICAL HISTORY : Abdominal aortic aneurysm repair. ENCOUNTER: Subsequent ACUITY: 2 day PAIN SCORE: Nonresponsive. LOCATION: Head. Percent stenosis is calculated using the diameter of the stenotic region over the diameter of the nor mal distal internal carotid artery. TECHNIQUE: 3D time of flight MRA of the extracranial circulation was performed using a neurovascular coil. Post processing was performed including rotating subvolume maximum intensity projections of each carotid artery, rotating full-volume maximum intensity projections of both carotid arteries, sagittal and cor onal sliding thin-slab reformations of each carotid artery, and left oblique sliding thin slab reform ation through the aortic arch to include the origin of the arch branch vessels. FINDINGS: Noncontrast MR angiography of the carotid arteries was performed. Examination of the aortic arch demo nstrates no evidence of aneurysm or dissection. The descending thoracic aorta is unremarkable and th e aortic root is normal in size. There is normal origin of vessels from the arch. The vertebral arter ies are codominant with a focal area of stenosis involving the right vertebral artery greater than 80 % at approximately the C5 level. No segmental occlusion is identified. The right common carotid artery appears normal. There is no stenosis in the bifurcation and more dist ally the cervical internal carotid artery is intact. The left carotid artery also demonstrates no significant stenosis. There is signal loss in a nonanato darshana fashion involving the proximal left internal carotid artery which appears artifactual. More dista lly the vessels are intact CONCLUSION: 1. No evidence of carotid stenosis. 2. Short segment high-grade stenosis involving the mid right vertebral artery greater than 80 with a patent left vertebral artery Abhijeet Salians MD on July 11, 2016 at 16:01 Board Certified Radiologist. This report was verified electronically.
[2016-07-11] MEDS ORDERED: SODIUM CHLORIDE 0.9% FLUSH 10 ML FLUSH IVF PRN (16:45)
--- NOTE | 2016-07-11 16:47 | PD.PROCEDR ---
Central Line Procedure REASON FOR PROCEDURE Central venous access PROCEDURE PERFORMED Central line placement: Left IJ CVL CONSENT Informed consent for procedure was not obtained as attempts to contact healthcare proxy were unsuccessful despite multiple calls and patient was actually oozing from right cordis. New central line access was necessary to maintain hemodynamic access. The risks and benefits of the procedure were discussed to include but limited to bleeding, clot formation, infection, and even . ANESTHESIA Local injection of 1% Lidocaine DESCRIPTION OF THE PROCEDURE The patient was placed in supine, mild Trendelenburg position. The area was exposed and cleansed with ChloraPrep, times two. Large sterile drape was used to cover the patient, with the site exposed, under sterile conditions including cap, face mask, sterile gown, and sterile gloves. On single attempt, the introducer needle was inserted with negative pressure in syringe and venous flash was obtained. The guide wire was then advanced without any restriction and the needle was removed. The dilator was used without any complications. Using Seldinger technique the triple-lumen catheter was advanced over the guide wire to a depth of 20 centimeters. The guide wire was removed. All ports were aspirated with dark venous blood return and flushed easily with sterile saline. All ports were capped. Antibiotic disc was placed around central line at puncture site. The central line was secured to the skin with two interrupted 2.0 silk sutures. The area was bandaged with sterile see-through central line bandage. RADIOLOGICAL DATA Ultrasound guidance was used to locate left internal jugular vein. Doppler/ color flow was used to confirm venous flow. COMPLICATIONS: No apparent complications ESTIMATED BLOOD LOSS: Less than 1 cc. Chris Helton MD Jul 11, 2016 16:47
--- NOTE | 2016-07-11 17:13 | RADRPT ---
EXAM DATE/TIME: 07/11/2016 16:44 [facility] COMPARISON: CHEST SINGLE AP, July 11, 2016, 1:55. INDICATIONS : Central Line Placement MEDICAL HISTORY : Unobtainable SURGICAL HISTORY : Unobtainable ENCOUNTER: Subsequent ACUITY: 1 week PAIN SCORE: Non-responsive. LOCATION: Bilateral chest FINDINGS: There is no change when compared to the prior study. Again seen are bibasilar infiltrates and small e ffusions. Cardiomegaly. Tip of the endotracheal tube 3 cm cephalad to the jessica. Nasogastric tube co urses off the inferior margin of the film. Descending thoracic and the graft. Left-sided central line . The tip is at the innominate vein brachiocephalic vein confluence. No pneumothorax. CONCLUSION: No change. Left central line in good position without pneumothorax. Joe Appiah Jr., MD on July 11, 2016 at 17:06 Board Certified Radiologist. This report was verified electronically.
[2016-07-11] MEDS: ASPIRIN 81 MG CHEW TAB CHEW SCH (17:30)
[2016-07-11] MEDS ORDERED: ASPIRIN 300 MG SUPP RECTAL SCH (18:00)
[2016-07-11] MEDS ORDERED: ASPIRIN 81 MG CHEW TAB CHEW SCH (18:00)
[2016-07-11] MEDS: MELATONIN 5 MG TAB PO SCH (20:23)
[2016-07-11] MEDS ORDERED: QUEtiapine FUMARATE 25 MG TAB PO SCH (21:00)
[2016-07-12] VITALS (17 sets, daily range): BP systolic 127–174; BP diastolic 42–48; PULSE 56–69; RESP 15–22; TEMP 98.2–99.7; O2SAT 93–97
[2016-07-12] MEDS: PROPOFOL 1000 MG/100 ML INJ 100 ML IV SCH ×3 (00:01→17:10)
[2016-07-12] MEDS: CHLORHEXIDINE GLUCONATE 2 % 1 PACK (2 CLOTHS) TOP SCH (04:00)
[2016-07-12 04:02] LABS: AUTOMATED NEUTROPHIL # 14.1 TH/MM3 (1.8-7.7); BASOPHIL % 0.3 % (0.0-2.0); EOSINOPHIL # 0.4 TH/MM3 (0-0.4); EOSINOPHIL % 2.5 % (0.0-4.0); HEMATOCRIT 24.6 % (39.0-51.0); LYMPH % 5.3 % (9.0-44.0); LYMPHOCYTE # 0.9 TH/MM3 (1.0-4.8); MEAN CELL VOLUME 91.6 FL (80.0-100.0); MEAN CORPUSCULAR HGB CONC 34.9 % (32.0-36.0); MONO % 9.9 % (0.0-8.0); PLATELET COUNT 99 TH/MM3 (150-450); RED BLOOD COUNT 2.69 MIL/MM3 (4.50-5.90); RED CELL DISTRIBUTION WIDTH 13.8 % (11.6-17.2); WHITE BLOOD COUNT 17.1 TH/MM3 (4.0-11.0)
[2016-07-12] MEDS: RESP: ALBUTEROL 2.5 MG/IPRATROPIUM 0.5 MG NEB (SCH) INH ×4 (04:02→20:34)
[2016-07-12 04:24] LABS: HEMO FLAGS AUTO DIFF
[2016-07-12] MEDS: HEPARIN SODIUM - SQ 10,000 UNITS/ML VIAL SQ SCH ×3 (05:00→21:59)
[2016-07-12] MEDS: ARTIFICIAL TEARS OPTH SOLN 15 ML BTL EACH EYE SCH ×3 (05:00→22:01)
[2016-07-12 05:17] LABS: BICARBONATE 24.1 MEQ/L (21.0-32.0); MAGNESIUM 3.1 MG/DL (1.5-2.5); POTASSIUM 4.7 MEQ/L (3.5-5.1)
[2016-07-12 05:53] LABS: EOSINOPHILS 3 % (0-4); METAMYELOCYTES 2 % (0-1); NEUTROPHIL # MANUAL DIFF 15.4 TH/MM3 (1.8-7.7); POLYS (SEG NEUTROPHILS) 88 % (16-70); WBC DIFF SAMPLE 100
[2016-07-12 05:54] LABS: PLATELET ESTIMATE SMEAR LOW (NORMAL); PLATELET MORPHOLOGY NORMAL (NORMAL); SCAN/DIFF FINAL DIFF MANUAL
[2016-07-12] MEDS: INSULIN NovoLIN REGULAR SUPPLEMENTAL SCALE SQ SCH ×4 (06:00→18:00)
--- NOTE | 2016-07-12 06:39 | RADRPT ---
EXAM DATE/TIME: 07/12/2016 05:48 [facility] COMPARISON: CHEST SINGLE AP, July 11, 2016, 16:44. INDICATIONS : Evaluate for respiratory failure. MEDICAL HISTORY : Unobtainable. SURGICAL HISTORY : Unobtainable. ENCOUNTER: Subsequent ACUITY: 1 week PAIN SCORE: Non-responsive. LOCATION: chest FINDINGS: Portable AP view of the chest demonstrates cardiac silhouette size at the upper limits for normal. Le ft IJ line, nasogastric tube, and ETT remain present. Stent graft is present within the descending ao rta. There are bibasilar pleural-parenchymal opacities. No pneumothorax is visualized. CONCLUSION: Stable chest x-ray with bibasilar opacities likely representing pleural effusions with associated vol ume loss and/or airspace consolidation. Aleksey Turner MD on July 12, 2016 at 6:37 Board Certified Radiologist. This report was verified electronically.
[2016-07-12] MEDS ORDERED: GLYCERIN ADULT 2 GM SUPP RECTAL ONE (06:45)
[2016-07-12] MEDS ORDERED: MAGNESIUM CITRATE SOLN 300 ML BTL PO ONE (06:45)
[2016-07-12] MEDS ORDERED: MINERAL OIL LIQUID 30 ML CUP PO ONE (06:45)
[2016-07-12] MEDS ORDERED: GLYCERIN ADULT 2 GM SUPP RECTAL PRN (06:45)
--- NOTE | 2016-07-12 06:49 | HHI.CCPN ---
Subjective Remarks/Hospital Course Hospital Course: This is a 60-year-old male who is transferred emergently from outside hospital with per report and acute type B dissection. Apparently the patient told his family member today that he had searing back pain and was taken to the emergency department. A CT of the chest at that time showed a type B dissection. The patient was intubated the outside facility and transferred to [place] for emergent evaluation management. Unfortunately, the patient is unable to provide any additional history at this time. I was at bedside and the patient arrived to the surgical intensive care unit. Dr. Long and I both evaluated the patient and when he arrived he was in a junctional bradycardia with heart rate in the 40s. He had obvious ST depressions in lead II on telemetry. Our initial concern was that we have extended the dissection into the type A dissection. We also did not have any CT of the abdomen and pelvis. On her physical exam, the patient had a cold left foot without pulses. I emergently placed a right radial arterial line, please see separate procedure note for details. We then went emergently to the CT scanner for repeat CT aortogram of the chest abdomen and pelvis to investigate the extent to which the dissection has extended. The CT aortogram demonstrated that this was still a type B dissection with the celiac artery being significantly compressed and possibly comprising flow from the dissection flap. The right kidney appears to be perfused off the false lumen and not the true lumen, and there is no contrast going down the left femoral artery. Patient was then brought back to the intensive care unit. His blood pressure is controlled on nicardipine infusion for goal systolic blood pressure less than 110. A 12-lead EKG at that time was done which demonstrated significant ST depressions in the inferior leads as well as the far lateral leads consistent with subendocardial ischemia. At the request of Dr. Long in anticipation of going emergently to the operative theater, I placed a lumbar drain for spinal protection, please see separate procedure note for details. At that point the patient was taken emergently to the operating room. Critical care medicine is been consulted to evaluate and manage the patient's type B dissection, hemodynamic's, acute hypoxic respiratory failure. 07/05: taken to OR for TEVAR overnight. lactate cleared overnight. uop adequate. Cr elevated to 1.8 this AM. He is on Coreg 50 mg by mouth 07/06: oliguric overnight. Cr rising. however, lactate cleared. other markers of end-organ perfusion better. likely ATN from time of dissection. awake following commands. moving bilateral lower extremities. clear CSF in lumbar drain. on intermittent norepinephrine to maintain spinal perfusion. 07/07: extubated yesterday, followed commands, good pulmonary mechanics. However , after extubation, became acutely delirious- probable combination of etoh withdraw and icu delirium, some pain. mental status waxed and waned throughout the day and ultimately reintubated overnight for worsening waning mental status and hypoxia. post-extubation it has been documented that he continues to move his bilateral lower extremities to painful stimuli and spontaneously. does not follow commands this morning. troponins downtrending. cardiology evaluated the patient yesterday, formal note pending, but per my conversation, plan was for ongoing conservative management as we are doing, and plan for nuc med stress test when stable. 07/08: still moving bilateral LEs spontaneously and w/d to pain. remains intubated with persistent agitation. hypoxia improving. platelets continue to fall, likely a combination of consumption, BUBBA, liver disease. will give unit of platelets prior to d/c lumbar drain. 07/09: Troponin spill resolving without evidence of ongoing injury. Major obstacle is agitation related to ETOH withdrawal followed by necessary sedation. Continue to work toward vent weaning. 07/10: Afebrile. Not following commands. Continues to be agitated for reasons above. Tolerating tube feeding at goal rate. Creatinine hopefully has plateaued. 07/11: CURRENT TEMPERATURE 100.2. MRI brain yesterday revealed left cellular restricted diffusion area likely acute infarct with small punctate areas within the coronal radiata possibly embolic event. Patient is arousable and will move all 4 extremities but not following commands. Left foot remains cool. Tolerating tube feeding. No bowel movement times 4 days. Subjective: 07/12: Tmax 99.7. Currently 99. Noted right vertebral/distal left MCA/mid right SOFTWARE TRAINER stenosis on imaging yesterday. Central line exchange from right to left side due to bleeding. No bowel movement for tolerating tube feedings with very low residuals. Still wean sedation. Objective Vital Signs Date Time Temp Pulse Resp B/P Pulse Ox O2 Delivery O2 Flow Rate FiO2 07/12/16 06:00 127/43 07/12/16 06:00 64 07/12/16 04:03 94 35 07/12/16 04:00 99.2 18 07/11/16 19:00 Mechanical Ventilator Intake and Output 07/11/16 07/11/16 07/12/16 08:00 16:00 00:00 Intake Total 707 ml 562 ml 525 ml Output Total 500 ml 475 ml 550 ml Balance 207 ml 87 ml -25 ml Result Diagram: 07/12/16 0328 07/12/16 0328 Other Results Microbiology Date/Time Procedure Status Source Growth 07/11/16 10:05 Aerobic Blood Culture Received Blood Peripheral Pending 07/11/16 10:05 Anaerobic Blood Culture Received Blood Peripheral Pending 07/11/16 09:05 Urine Culture Received Urine Catheterized Urine Pending 07/11/16 09:05 Gram Stain - Final Resulted Sputum Endotracheal 07/11/16 09:05 Sputum Culture Resulted Sputum Endotracheal Pending Imaging Last Impressions Chest X-Ray 07/11/16 1644 Signed Impressions: Service Date/Time: June 16:44 - CONCLUSION: No change. Left central line in good position without pneumothorax. Joe Appiah Jr., MD Neck Magnetic Resonance Angiography 07/11/16 0000 Signed Impressions: Service Date/Time: June 14:29 - CONCLUSION: 1. No evidence of carotid stenosis. 2. Short segment high-grade stenosis involving the mid right vertebral artery greater than 80 with a patent left vertebral artery Abhijeet Salinas MD Head Magnetic Resonance Angiography 07/11/16 0000 Signed Impressions: Service Date/Time: June 14:29 - CONCLUSION: 1. Evidence of atherosclerotic disease with focal distal left MCA branch stenosis and focal mid right SOFTWARE TRAINER stenosis. 2. No proximal high grade stenosis or aneurysm. Bladimir Gasca MD Abdomen X-Ray 07/11/16 0000 Signed Impressions: Service Date/Time: June 09:15 - CONCLUSION: Bowel gas pattern within normal limits. Bladimir Gasca MD Brain MRI 07/10/16 0000 Signed Impressions: Service Date/Time: Sunday, July 10, 2016 15:03 - CONCLUSION: 1. Small punctate infarcts involving the left cerebellar hemisphere and deep white matter bilaterally in this patient with a background of amyloid angiopathy. No acute hemorrhage is seen. Abhijeet Salinas MD Renal Ultrasound 07/08/16 0000 Signed Impressions: Service Date/Time: Friday, July 08, 2016 17:16 - CONCLUSION: 1. Resistive indices could not be obtained on the right side into the patient's body habitus and shadowing bowel gas. Left renal artery resistive indices are within normal limits. 2. No significant abdominal aortic aneurysm identified status post repair. 3. Probable 7 mm nonobstructing midpole right renal calculus. 4. Tiny left lower pole cyst measuring 1.5 cm. Hamlet Vinson MD Aorta CTA 07/04/16 0000 Signed Impressions: Service Date/Time: June 19:53 - CONCLUSION: 1. Extensive aortic dissection extending from the proximal transverse aorta just distal to the origin of the left subclavian artery. Dissection extends distally through both superficial femoral arteries. 2. Occlusion of the right renal artery with absent perfusion of the right kidney. Dissection of the left renal artery with absent perfusion of the anterior left kidney. 3. 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 4. Occlusion of left external iliac artery and right internal iliac artery. 5. ET tube in satisfactory position. Dependent consolidation in both lungs. Probable mild liver cirrhosis. No obstruction or free fluid. Russell catheter in decompressed bladder. See above discussion. Rodriguez Jeff MD Objective Remarks GENERAL: 60-year-old male, critically ill currently orotracheally intubated HEENT: Normocephalic. Atraumatic. Pupils 3 mm, reactive, conjugate bilaterally. NECK: Trachea is midline. Supple. Right cordis is clean dry and intact. Orotracheally intubated CHEST: Clear to auscultation bilaterally without wheezes rales or rhonchi. CARDIOVASCULAR: RRR. S1, S2 no S4. Without murmur ABDOMEN: Protuberant, reducible. Hypoactive bowel sounds are appreciated MUSCULOSKELETAL: Distal pulses 2+. Left lower extremity fasciotomy site covered with Sandeep wrap. Medial aspect is sutured. Right side is opened without bleeding Left foot is cool NEUROLOGICAL: Positive corneal reflex. Positive gag. Withdraws in both upper and LEs to noxious stimuli. Vascular Central Line Catheter: Yes Assessment to: Continue Date of Insertion: Jul 11, 2016 Line: Central Venous Catheter Side: Left Location: Internal, Jugular A/P Assessment and Plan Neuro/Psych: Left cerebellar lacunar infarct Right vertebral/distal left MCA and mid right SOFTWARE TRAINER stenosis Severe Agitated Delirium Alcohol Withdrawal - up to 15 beers daily Risk for spinal cord hypoperfusion Alcohol abuse History of polysubstance abuse including crack cocaine Lumbar drain placement - removed 07/08 Insomnia Propofol at 40 mcg/kg/m and, fentanyl at 100 mg an hour for sedation/analgesia while intubated -- Goal RASS -2 --Daily sedation vacation On melatonin 5 mg at night as needed for insomnia Daily thiamine 100 mg daily for EtOH use MRI brain 07/10 revealed left cerebellar cystic diffusion region with small punctate areas in the suarez radiata likely embolic. Possible amyloid. MRA head/neck revealed right vertebral 80% short segment stenosis, distal left MCA and mid right SOFTWARE TRAINER stenosis EEG 07/10 revealed no seizure activity Delirium/Withdraw regimen: --Tizanidine 2mg po BID for pain adjuvant and to help with delirium --Seroquel 25 mg twice a day for delirium/weaning --Haldol 5mg iv q4h prn for breakthrough agitation. --Valium 5mg po q8hr for etoh withdraw, start slow taper over through 07/15 --Ativan 1mg iv q15min prn for withdraw symptoms --continue to avoid Precedex for now given recent junctional bradycardia, NSTEMI , and need for continued spinal cord protection with goal systolic blood pressure of 140 to 160 recommended per vascular surgery. -- Okayed with Dr. Long for aspirin 324 mg daily Respiratory: Acute hypoxic and hypercarbic respiratory failure -- PRVC 18/550/0.8/5/35 Vent bundle Bronchodilator therapy every 6 hours and albuterol every 2 hours when needed Head of bed 30 will attempt SAT/SBT to see if the agitation is under better control. Wean FiO2 for goal SPO2 greater than 92% Follow-up a.m. chest x-ray showed small pleural effusions bilaterally/ essentially stable chest x-ray Cardiovascular: Postop day #8 T4 with left lower x-ray fasciotomy secondary to type B aortic dissection with renal/visceral and left lower extreme L perfusion Thoracic endovascular stent with left lower extremity fasciotomy/ compartments with [address] Long Acute type B dissection- secured Type II NSTEMI- Demand Ischemia- resolving Junction bradycardia- resolved. Lactic Acidosis- resolved. Goal map > 80/SBP > 140 for spinal cordprotection -- troponin downtrending. 6.81 -- elevated troponins likely combination of demand ischemia and poor renal clearance -- Cardiology: Dr. Mondragon following. plan for conservative management with myocardial perfusion scan when stable. -- 2d echo: EF 55%, no RWMA. 2-D echo 07/08 repeat EF 60-65%. Mild MR. At [facility] dilated. RENO 49 mmHg --Cardiac output currently is 8. SVV is 7 -- continue norepinephrine to maintain spinal perfusion currently at 1 g per minute. Renal: Acute kidney injury Acute Tubular Necrosis Right nephrolithiasis Likely secondary to hypoperfusion of the kidney from dissection, ATN -- FENa 07/07 1.2% consistent with ATN. Urine eos negative. Urine urea ordered -- order renal ultrasound with doppler. Revealed patent renal arteries bilaterally. Tiny 7 mm right renal calculus and 1.5 cm left renal cyst. -- Strict I/Os Russell placement to be maintained --nephrology consult 07/08 appreciated. No indication for dialysis at this point Avoid nephrotoxins drugs BUN/creatinine. Stabilize. Urine output 1350 overnight FEN/GI: Acute protein calorie malnutrition- mild Non-anion gap metabolic acidosis- resolved. Hyperphosphatemia Hyper-magnesium Hyponatremia History of peptic ulcer disease Hepatitis C -from IV drug use Elevated AST TF: Nepro at goal 40 cc an hour --nutrition consult. Daily BMP --Currently on PhosLo 2668 mg 3 times a day for hyperphosphatemia Protonix for GI prophylaxis. Stephie-Colace twice a day for bowel regimen. MiraLAX twice a day lactulose 4 times daily. Mineral oil/mag citrate/Relistor 1 today. KUB yesterday revealed no acute findings. Positive flatus. Enema if needed Heme/ID: Leukocytosislikely reactive Acute Blood Loss Anemia Thrombocytopenia Daily CBC No infectious etiology suspected this time Daily coags --thrombocytopenia is likely multifactorial from liver disease, consumptive from critical illness and dissection. Blood cultures/sputum ordered yesterday pending Endocrine: Hyperglycemia of critical illness -- SSI, medium scale, every 6 hours Prophylaxis: GI Prophylaxis Protonix 40 mg IV every 24 DVT Prophylaxis -- SCDs/heparin The patient may receive heparin subcutaneous every 12. Patient may additionally receive aspirin, but not Plavix. Lines: 07/04 right radial arterial line --07/04-07/11 right IJ cortis -- Left IJ CVL 07/11 present Critical Care: The total critical care time was 35 minutes. Time to perform other separately billable procedures was not included in the critical care time. Chris Helton MD Jul 12, 2016 06:49
[2016-07-12] MEDS ORDERED: METHYLNALTREXONE BROMIDE 12 MG/0.6 ML VIAL SQ ONE (07:30)
--- NOTE | 2016-07-12 08:12 | PD.CARD.PN ---
Subjective Subjective Remarks Intubated, comatose Objective Medications Current Medications Medications (Trade) Dose Ordered Sig/Sascha Route Start Time Stop Time Status Last Admin (Peridex 0.12% Liq) 15 ml BID@08,20 MT 07/05/16 08:00 07/11/16 20:00 (D50w (Vial) Inj) 25 ml UNSCH PRN IV PUSH 07/04/16 22:45 (NovoLIN R SUPPLEMENTAL SCALE) 1 Q6HR SQ 07/05/16 00:00 07/09/16 18:00 (Vitamin B1) 100 mg DAILY PO 07/08/16 09:00 07/11/16 08:12 (Theragran) 1 tab DAILY PO 07/05/16 09:00 07/11/16 08:12 (NS Flush) 2 ml UNSCH PRN IV FLUSH 07/04/16 22:45 (NS Flush) 2 ml BID IV FLUSH 07/05/16 09:00 07/11/16 20:24 (Tylenol) 650 mg Q6H PRN PO 07/04/16 22:45 07/11/16 04:32 (Protonix Inj) 40 mg DAILY IV 07/05/16 09:00 07/11/16 08:13 (Zofran Inj) 4 mg Q6H PRN IV 07/04/16 22:45 (Stephie-Colace) 2 tab BID PO 07/05/16 09:00 07/11/16 20:24 Miscellaneous Information 1 Q361D XX 07/04/16 22:45 (Chlorhexidine 2% Cloth) Taper DAILY@04 TOP 07/05/16 04:00 07/01/17 03:59 07/12/16 04:00 Chlorhexidine Gluconate 3 pack 3 pack UNSCH PRN TOP 07/04/16 22:45 (Levophed-Dextrose Drip) 250 ml @ 0 mls/hr TITRATE IV 07/05/16 18:30 07/09/16 21:06 (Haldol Inj) 5 mg Q4H PRN IV 07/06/16 13:30 07/06/16 14:04 (Ativan Inj) 1 mg Q15M PRN IV PUSH 07/06/16 13:30 07/06/16 14:05 (Melatonin) 5 mg HS PO 07/06/16 21:00 07/11/16 20:23 Fentanyl Citrate 25 mcg 25 mcg Q30M PRN IV PUSH 07/06/16 13:45 07/07/16 09:03 Propofol 100 ml @ 0 mls/hr TITRATE IV 07/06/16 22:45 07/12/16 04:59 (fentaNYL DRIP) 250 ml @ 0 mls/hr TITRATE IV 07/06/16 22:45 07/09/16 21:06 (Valium) 5 mg Taper Q12HR PO 07/07/16 07:30 07/15/16 07:29 07/11/16 20:24 (Phoslo) 2,668 mg TID PO 07/07/16 09:00 07/11/16 18:55 (Pill Splitter) 1 ea UNSCH PRN OTHER 07/07/16 07:30 (Heparin Inj) 5,000 units Q8H SQ 07/08/16 20:00 07/12/16 05:00 (Zanaflex) 2 mg Q12H PO 07/10/16 02:00 07/12/16 05:00 (Miralax) 17 gm BID OG-TUBE 07/10/16 09:00 07/11/16 20:24 (Glycerin Adult Supp) 2 gm DAILY PRN RECTAL 07/10/16 08:15 (Tears Naturale Opth Soln) 1 drop Q8HR EACH EYE 07/10/16 14:00 07/12/16 05:00 (Lactulose Liq) 30 ml QID PO 07/11/16 09:00 07/11/16 20:23 (NS Flush) DAILY IVF 07/12/16 09:00 (NS Flush) UNSCH PRN IVF 07/11/16 16:45 (Aspirin Chew) 324 mg DAILY CHEW 07/11/16 17:30 07/11/16 17:30 (Glycerin Adult Supp) 2 gm BID PRN RECTAL 07/12/16 06:45 (SEROquel) 25 mg BID PO 07/12/16 09:00 Vital Signs / I&O Vital Signs Date Time Temp Pulse Resp B/P Pulse Ox O2 Delivery O2 Flow Rate FiO2 07/12/16 07:29 95 98 07/12/16 06:00 127/43 07/12/16 06:00 64 07/12/16 04:03 94 35 07/12/16 04:00 99.2 65 18 136/42 97 07/12/16 04:00 150/48 07/12/16 04:00 65 07/12/16 04:00 40 07/12/16 02:00 66 07/12/16 02:00 139/44 07/12/16 00:00 99.7 65 18 136/42 97 07/12/16 00:00 150/48 07/12/16 00:00 40 07/12/16 00:00 56 07/11/16 23:47 96 35 07/11/16 22:00 130/40 07/11/16 22:00 56 07/11/16 20:04 97 35 07/11/16 20:00 154/48 07/11/16 20:00 40 07/11/16 20:00 99.0 56 18 136/42 93 07/11/16 20:00 56 07/11/16 19:00 93 Mechanical Ventilator 35 07/11/16 18:00 67 07/11/16 18:00 159/49 07/11/16 16:00 40 07/11/16 16:00 154/48 07/11/16 16:00 99.0 68 18 154/48 93 07/11/16 16:00 67 07/11/16 15:53 94 35 07/11/16 14:15 100 100 07/11/16 14:00 70 07/11/16 14:00 148/66 07/11/16 12:00 66 07/11/16 12:00 164/52 07/11/16 12:00 40 07/11/16 12:00 99.7 66 19 164/52 93 07/11/16 11:07 94 35 07/11/16 10:00 65 07/11/16 10:00 155/55 07/11/16 10:00 99.7 80 18 158/48 93 07/11/16 10:00 40 I/O 07/11/16 07/11/16 07/11/16 07/12/16 07/12/16 07/12/16 07:00 15:00 23:00 07:00 15:00 23:00 Intake Total 707 ml 562 ml 525 ml 670 ml Output Total 500 ml 475 ml 550 ml 300 ml Balance 207 ml 87 ml -25 ml 370 ml Intake IV Total 193 ml 166 ml 97 ml 93 ml Tube Feeding 314 ml 276 ml 272 ml 323 ml Lipid 156 ml 134 ml Tube Irrigant 200 ml 120 ml Other 120 ml Output Urine Total 500 ml 475 ml 550 ml 300 ml # Bowel Movements 0 0 0 0 Physical Exam GENERAL: Intubated, comatose SKIN: Warm and dry. HEAD: Normocephalic. EYES: No scleral icterus. No injection or drainage. NECK: Supple, trachea midline. No JVD or lymphadenopathy. CARDIOVASCULAR: Regular rate and rhythm without murmurs, gallops, or rubs. RESPIRATORY: Breath sounds equal bilaterally. No accessory muscle use. GASTROINTESTINAL: Abdomen soft, non-tender, nondistended. MUSCULOSKELETAL: No cyanosis, mild edema, good distal perfusion Laboratory Laboratory Tests Test 07/11/16 07/12/16 09:05 03:28 Urine Color YELLOW Urine Turbidity HAZY Urine pH 5.5 Urine Specific Satin 1.016 Urine Protein 30 mg/dL Urine Glucose (UA) NEG mg/dL Urine Ketones NEG mg/dL Urine Occult Blood MOD Urine Nitrite NEG Urine Bilirubin NEG Urine Urobilinogen LESS THAN 2.0 MG/DL Urine Leukocyte Esterase NEG Urine RBC 24 /hpf Urine WBC 5 /hpf Urine Squamous Epithelial 1 /hpf Cells Urine Amorphous Sediment FEW Urine Bacteria RARE /hpf Urine Granular Casts 1 /lpf Urine Mucus FEW /lpf Microscopic Urinalysis Comment CATH-CULTURE IND White Blood Count 17.1 TH/MM3 Red Blood Count 2.69 MIL/MM3 Hemoglobin 8.6 GM/DL Hematocrit 24.6 % Mean Corpuscular Volume 91.6 FL Mean Corpuscular Hemoglobin 32.0 PG Mean Corpuscular Hemoglobin 34.9 % Concent Red Cell Distribution Width 13.8 % Platelet Count 99 TH/MM3 Mean Platelet Volume 10.4 FL Neutrophils (%) (Auto) 82.0 % Lymphocytes (%) (Auto) 5.3 % Monocytes (%) (Auto) 9.9 % Eosinophils (%) (Auto) 2.5 % Basophils (%) (Auto) 0.3 % Neutrophils # (Auto) 14.1 TH/MM3 Lymphocytes # (Auto) 0.9 TH/MM3 Monocytes # (Auto) 1.7 TH/MM3 Eosinophils # (Auto) 0.4 TH/MM3 Basophils # (Auto) 0.0 TH/MM3 CBC Comment AUTO DIFF Differential Total Cells 100 Counted Neutrophils % (Manual) 88 % Lymphocytes % 2 % Monocytes % 5 % Eosinophils % 3 % Neutrophils # (Manual) 15.4 TH/MM3 Metamyelocytes 2 % Differential Comment FINAL DIFF MANUAL Platelet Estimate LOW Platelet Morphology Comment NORMAL Red Cell Morphology Comment NORMAL Sodium Level 135 MEQ/L Potassium Level 4.7 MEQ/L Chloride Level 97 MEQ/L Carbon Dioxide Level 24.1 MEQ/L Anion Gap 14 MEQ/L Blood Urea Nitrogen 127 MG/DL Creatinine 5.46 MG/DL Estimat Glomerular Filtration 11 ML/MIN Rate Random Glucose 113 MG/DL Calcium Level 8.1 MG/DL Phosphorus Level 5.6 MG/DL Magnesium Level 3.1 MG/DL Imaging Last Impressions Chest X-Ray 07/12/16 0600 Signed Impressions: Service Date/Time: Tuesday, July 12, 2016 05:48 - CONCLUSION: Stable chest x-ray with bibasilar opacities likely representing pleural effusions with associated volume loss and/or airspace consolidation. Aleksey Turner MD Neck Magnetic Resonance Angiography 07/11/16 0000 Signed Impressions: Service Date/Time: June 14:29 - CONCLUSION: 1. No evidence of carotid stenosis. 2. Short segment high-grade stenosis involving the mid right vertebral artery greater than 80 with a patent left vertebral artery Abhijeet Salinas MD Head Magnetic Resonance Angiography 07/11/16 0000 Signed Impressions: Service Date/Time: June 14:29 - CONCLUSION: 1. Evidence of atherosclerotic disease with focal distal left MCA branch stenosis and focal mid right BATCH MAKER stenosis. 2. No proximal high grade stenosis or aneurysm. Bladimir Gasca MD Abdomen X-Ray 07/11/16 0000 Signed Impressions: Service Date/Time: June 09:15 - CONCLUSION: Bowel gas pattern within normal limits. Bladimir Gasca MD Brain MRI 07/10/16 0000 Signed Impressions: Service Date/Time: Sunday, July 10, 2016 15:03 - CONCLUSION: 1. Small punctate infarcts involving the left cerebellar hemisphere and deep white matter bilaterally in this patient with a background of amyloid angiopathy. No acute hemorrhage is seen. Abhijeet Salinas MD Renal Ultrasound 07/08/16 0000 Signed Impressions: Service Date/Time: Friday, July 08, 2016 17:16 - CONCLUSION: 1. Resistive indices could not be obtained on the right side into the patient's body habitus and shadowing bowel gas. Left renal artery resistive indices are within normal limits. 2. No significant abdominal aortic aneurysm identified status post repair. 3. Probable 7 mm nonobstructing midpole right renal calculus. 4. Tiny left lower pole cyst measuring 1.5 cm. Hamlet Vinson MD Aorta CTA 07/04/16 0000 Signed Impressions: Service Date/Time: June 19:53 - CONCLUSION: 1. Extensive aortic dissection extending from the proximal transverse aorta just distal to the origin of the left subclavian artery. Dissection extends distally through both superficial femoral arteries. 2. Occlusion of the right renal artery with absent perfusion of the right kidney. Dissection of the left renal artery with absent perfusion of the anterior left kidney. 3. 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 4. Occlusion of left external iliac artery and right internal iliac artery. 5. ET tube in satisfactory position. Dependent consolidation in both lungs. Probable mild liver cirrhosis. No obstruction or free fluid. Russell catheter in decompressed bladder. See above discussion. 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 MRI showed evidence of CVA. Neurology evaluation. Serial echos showed well preserved LV systolic fx. Troponin elevated, but there is no evidence of ACS. Slow progress, but no new cardiac issues. Nomi Mondragon MD Jul 12, 2016 08:12
[2016-07-12] MEDS: SODIUM CHLORIDE 0.9% FLUSH 10 ML FLUSH IVF SCH (09:00)
[2016-07-12] MEDS: fentaNYL DRIP 250 ML IV SCH (09:54)
[2016-07-12] MEDS: CALCIUM ACETATE 667 MG CAP PO SCH ×3 (09:58→17:10)
[2016-07-12] MEDS: DOCUSATE SODIUM 50 MG/SENNA 8.6 MG TAB PO SCH ×2 (09:58→22:00)
[2016-07-12] MEDS: PANTOPRAZOLE SODIUM 40 MG VIAL IV SCH (09:58)
[2016-07-12] MEDS: POLYETHYLENE GLYCOL 17 GM PKG OG-TUBE SCH ×2 (09:58→22:00)
[2016-07-12] MEDS: LACTULOSE SYRUP 20 GM/30 ML CUP PO SCH ×4 (09:58→21:59)
[2016-07-12] MEDS: THIAMINE HCL 100 MG TAB PO SCH (09:59)
[2016-07-12] MEDS: DIAZEPAM 10 MG TAB PO SCH ×2 (09:59→22:00)
[2016-07-12] MEDS: SODIUM CHLORIDE 0.9% FLUSH 10 ML FLUSH IV FLUSH SCH ×2 (09:59→21:00)
[2016-07-12] MEDS: ASPIRIN 81 MG CHEW TAB CHEW SCH (09:59)
[2016-07-12] MEDS: MULTIVITAMIN TAB PO SCH (09:59)
[2016-07-12] MEDS: QUEtiapine FUMARATE 25 MG TAB PO SCH ×2 (09:59→22:00)
[2016-07-12] MEDS: CHLORHEXIDINE 0.12% (ORAL KIT) 15 ML CUP MT SCH ×2 (10:00→20:00)
--- NOTE | 2016-07-12 11:12 | HHI.NPPN ---
Subjective History of Present Illness This patient is a 60-year-old male apparently with a history of previous alcohol and crack usage also has a history of hepatitis C, coronary disease and hypertension as well as medical noncompliance. Patient was admitted with a type B aortic dissection. CTA thoracic aorta and abdominal aorta performed July 04, 2016 revealed occluded right renal artery as well as perfusion only to the left posterior aspect of the left kidney. Patient status post emergent TAVA, left lower extremity fasciectomy mention of previous nonperfusion to that extremity. Patient's creatinine level was within normal range from previous records prior to this admission however patient had evidence of renal sufficiency on presentation and his creatinine level has continued to rise to a level of 4.75 Date of Consultation with marginal urine output. Interval History Patient maintaining fair urine output however creatinine level is slightly high. Patient still intubated. Nonverbal. Review of Systems General General Remarks Unobtainable because of clinical status. Objective Data Data 07/11/16 07/12/16 19:00 07:00 Intake Total 562 ml 1195 ml Output Total 475 ml 850 ml Balance 87 ml 345 ml Intake IV Total 166 ml 190 ml Tube Feeding 276 ml 595 ml Lipid 290 ml Tube Irrigant 120 ml Other 120 ml Output Urine Total 475 ml 850 ml # Bowel Movements 0 0 Vital Signs Date Time Temp Pulse Resp B/P Pulse Ox O2 Delivery O2 Flow Rate FiO2 07/12/16 10:15 40 07/12/16 07:29 95 98 07/12/16 06:00 127/43 07/12/16 06:00 64 07/12/16 04:03 94 35 07/12/16 04:00 99.2 65 18 136/42 97 07/12/16 04:00 150/48 07/12/16 04:00 65 07/12/16 04:00 40 07/12/16 02:00 66 07/12/16 02:00 139/44 07/12/16 00:00 99.7 65 18 136/42 97 07/12/16 00:00 150/48 07/12/16 00:00 40 07/12/16 00:00 56 07/11/16 23:47 96 35 07/11/16 22:00 130/40 07/11/16 22:00 56 07/11/16 20:04 97 35 07/11/16 20:00 154/48 07/11/16 20:00 40 07/11/16 20:00 99.0 56 18 136/42 93 07/11/16 20:00 56 07/11/16 19:00 93 Mechanical Ventilator 35 07/11/16 18:00 67 07/11/16 18:00 159/49 07/11/16 16:00 40 07/11/16 16:00 154/48 07/11/16 16:00 99.0 68 18 154/48 93 07/11/16 16:00 67 07/11/16 15:53 94 35 07/11/16 14:15 100 100 07/11/16 14:00 70 07/11/16 14:00 148/66 07/11/16 12:00 66 07/11/16 12:00 164/52 07/11/16 12:00 40 07/11/16 12:00 99.7 66 19 164/52 93 -: 07/12/16 0328 07/12/16 0328 Physical Exam General Appearance: No Acute Distress, Comfortable Pulmonary Resp Exam: Clear Bilaterally, Breath Sounds Equal, No Distress Cardiology CV Exam: Regular, Normal Sinus Rhythm Gastrointestinal/Abdomen GI Exam: Soft, Non-Tender Integumentary Skin Exam: Clear, Warm Neurologic Neuro Exam: Sedated Assessment/Plan Problem List: (1) Acute kidney insufficiency Plan: Patient most likely has sustained severe ischemic injuries to both kidneys as a result of dissection involving renal arteries. Maintaining fair urine output renal function still severely impaired. No acute indication for dialysis presently and will continue with non-dialytic management for the present in the hope subsequent renal recovery soon. Urine output deteriorates and or if azotemia worsened significantly we will however have to consider dialytic support. Medications should be adjusted for the patient's estimated GFR if clinically indicated. Avoid agents with significant potential for nephrotoxicity possible including NSAIDs for analgesia, iodine contrast agents if possible. Gadolinium is contraindicated if the GFR is below 30. (2) Hepatitis C Plan: Not playing a role as far as his acute renal failure is concerned in this setting. (3) HTN (hypertension) (4) Hyperphosphatemia Plan: Secondary to renal failure. Noted phosphate binder started. Eufemia Walters MD Jul 12, 2016 11:12
--- NOTE | 2016-07-12 13:07 | PD.VS.PN ---
Subjective POD #: 8 Procedure(s): TEVAR, L LE fasciotomies for acute TBAD with visceral/renal/LLE malperfusion Subjective/Hospital Course No acute events. Objective Neuro: MENSAH; turns head to voice. MR suggestive of CVA; started ASA yesterday for risk modification Pulmonary: ventilated, slow vent wean; CXR shows pulm effusions B Cardiac: reg rate, no cardiac issues; bhavani for SBP augmentation for SCPP FEN/GI: Nazia TF K 4.7 : UOP continues; BUN/cr stable at 127/5.5. No need for HD at present ID Antibiotics(date/duration): none WBC 17, increasing ID Cultures: NGTD Heme: Hct 25 plt 99 Vascular: + distal perfusion L leg fasciotomy ok Laboratory Laboratory Tests Test 07/12/16 03:28 White Blood Count 17.1 Red Blood Count 2.69 Hemoglobin 8.6 Hematocrit 24.6 Mean Corpuscular Volume 91.6 Mean Corpuscular Hemoglobin 32.0 Mean Corpuscular Hemoglobin 34.9 Concent Red Cell Distribution Width 13.8 Platelet Count 99 Mean Platelet Volume 10.4 Neutrophils (%) (Auto) 82.0 Lymphocytes (%) (Auto) 5.3 Monocytes (%) (Auto) 9.9 Eosinophils (%) (Auto) 2.5 Basophils (%) (Auto) 0.3 Neutrophils # (Auto) 14.1 Lymphocytes # (Auto) 0.9 Monocytes # (Auto) 1.7 Eosinophils # (Auto) 0.4 Basophils # (Auto) 0.0 CBC Comment AUTO DIFF Differential Total Cells 100 Counted Neutrophils % (Manual) 88 Lymphocytes % 2 Monocytes % 5 Eosinophils % 3 Neutrophils # (Manual) 15.4 Metamyelocytes 2 Differential Comment FINAL DIFF MANUAL Platelet Estimate LOW Platelet Morphology Comment NORMAL Red Cell Morphology Comment NORMAL Sodium Level 135 Potassium Level 4.7 Chloride Level 97 Carbon Dioxide Level 24.1 Anion Gap 14 Blood Urea Nitrogen 127 Creatinine 5.46 Estimat Glomerular Filtration 11 Rate Random Glucose 113 Calcium Level 8.1 Phosphorus Level 5.6 Magnesium Level 3.1 Date/Time Procedure Status Source Growth 07/11/16 10:05 Aerobic Blood Culture - Preliminary Resulted Blood Peripheral NO GROWTH IN 1 DAY 07/11/16 10:05 Anaerobic Blood Culture - Preliminary Resulted Blood Peripheral NO GROWTH IN 1 DAY 07/11/16 09:05 Urine Culture Received Urine Catheterized Urine Pending 07/11/16 09:05 Gram Stain - Final Resulted Sputum Endotracheal 07/11/16 09:05 Sputum Culture - Preliminary Resulted Sputum Endotracheal HEAVY GROWTH NORMAL RESPIRATORY KIM... Imaging Last 48 hours Impressions Chest X-Ray 07/12/16 0600 Signed Impressions: Service Date/Time: Tuesday, July 12, 2016 05:48 - CONCLUSION: Stable chest x-ray with bibasilar opacities likely representing pleural effusions with associated volume loss and/or airspace consolidation. Aleksey Turner MD Chest X-Ray 07/11/16 1644 Signed Impressions: Service Date/Time: June 16:44 - CONCLUSION: No change. Left central line in good position without pneumothorax. Joe Appiah Jr., MD Chest X-Ray 07/11/16 0600 Signed Impressions: Service Date/Time: June 01:55 - CONCLUSION: 1. Stable exam since July 07. Support apparatus in satisfactory position. Basilar airspace disease and small pleural effusions remain. Rodriguez Jeff MD Neck Magnetic Resonance Angiography 07/11/16 0000 Signed Impressions: Service Date/Time: June 14:29 - CONCLUSION: 1. No evidence of carotid stenosis. 2. Short segment high-grade stenosis involving the mid right vertebral artery greater than 80 with a patent left vertebral artery Abhijeet Salinas MD Head Magnetic Resonance Angiography 07/11/16 0000 Signed Impressions: Service Date/Time: June 14:29 - CONCLUSION: 1. Evidence of atherosclerotic disease with focal distal left MCA branch stenosis and focal mid right WOUND/OSTOMY CLINICAL NURSE SPECIALIST stenosis. 2. No proximal high grade stenosis or aneurysm. Bladimir Gasca MD Abdomen X-Ray 07/11/16 0000 Signed Impressions: Service Date/Time: June 09:15 - CONCLUSION: Bowel gas pattern within normal limits. Bladimir Gasca MD Assessment and Plan Plan POD#8 s/p TEVAR and L LE fasciotomy Expected ATN - maybe resolving; stable vent 1. Neuro: MENSAH; CVA on MRI; will continue to lighten sedation and see if he follows commants; no focal deficits. 2. Resp: wean vent as tolerated; may req pleural drain if effusions affecting ability to come off vent 3. CV: Goal SBP 140 for SCI protection 4. FEN/GI: TF ok (Nepro); Monitor e'lytes. TF at goal 5. : ATN; will avoid nephrotoxic meds, exogenous K. Renal duplex looked great. No need for HD. Recheck creatinine tomorrow. 6. ID: no issues 7. Heme: Hct stable (27). 8. endocrine: SSI as per ICU team 9. continue pulse checks - perfusion to LLE restored with TEVAR 10. Continue wound care on lateral fasciotomy. 11. ALTERNATIVE CODE: NO CHEST COMPRESSIONS and NO CARDIOVERSION. Otherwise, continue all current levels of care. Discussed with ICU team. Hamlet Long MD FACS drapery estimator [facility] at [facility] [phone] Hamlet Long MD Jul 12, 2016 13:07
[2016-07-12] MEDS ORDERED: DIATRIZOATE MEGLUM/DIATRIZOATE SOD 9 ML CUP PO ONE (15:15)
[2016-07-12] MEDS: SODIUM CHLOR 0.9% 1000 ML INJ 1,000 ML IV SCH (17:10)
--- NOTE | 2016-07-12 17:49 | RADRPT ---
EXAM DATE/TIME: 07/12/2016 16:54 [place] COMPARISON: CTA THORACIC ABDOMINAL AORTA W 3D RECON, July 04, 2016, 19:53. ABDOMEN KUB ONLY, July 11, 2016, 9: 15. INDICATIONS : Evaluate for ileus. MEDICAL HISTORY : Hepatitis C. Hypertension. Cardiovascular disease. SURGICAL HISTORY : Abdominal aortic aneurysm repair. ENCOUNTER: Subsequent ACUITY: 1 week PAIN SCORE: 0/10 LOCATION: Abdomen. FINDINGS: Nasogastric tube is across the GE junction. Thoracic stent graft is evident. Moderate gaseous disten taj of transverse colon is noted. Transverse colon is dilated to 8 cm. This represents progression from the comparison study. CONCLUSION: Progression of the colonic dilatation. Donis Hernandez MD FACR on July 12, 2016 at 17:33 Board Certified Radiologist. This report was verified electronically.
--- NOTE | 2016-07-12 17:57 | HHI.PR ---
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---possible amyloid angiopathy aortic dissection s/p endovascular repair Plan continue asa Diagnosis/Plan: Subjective Subjective Comments No acute events reported Active Medications Current Medications Medications (Trade) Dose Ordered Sig/Sascha Route Start Time Stop Time Status Last Admin (Peridex 0.12% Liq) 15 ml BID@08,20 MT 07/05/16 08:00 07/12/16 10:00 (D50w (Vial) Inj) 25 ml UNSCH PRN IV PUSH 07/04/16 22:45 (NovoLIN R SUPPLEMENTAL SCALE) 1 Q6HR SQ 07/05/16 00:00 07/09/16 18:00 (Vitamin B1) 100 mg DAILY PO 07/08/16 09:00 07/12/16 09:59 (Theragran) 1 tab DAILY PO 07/05/16 09:00 07/12/16 09:59 (NS Flush) 2 ml UNSCH PRN IV FLUSH 07/04/16 22:45 (NS Flush) 2 ml BID IV FLUSH 07/05/16 09:00 07/12/16 09:59 (Tylenol) 650 mg Q6H PRN PO 07/04/16 22:45 07/11/16 04:32 (Protonix Inj) 40 mg DAILY IV 07/05/16 09:00 07/12/16 09:58 (Zofran Inj) 4 mg Q6H PRN IV 07/04/16 22:45 (Stephie-Colace) 2 tab BID PO 07/05/16 09:00 07/12/16 09:58 Miscellaneous Information 1 Q361D XX 07/04/16 22:45 (Chlorhexidine 2% Cloth) Taper DAILY@04 TOP 07/05/16 04:00 07/01/17 03:59 07/12/16 04:00 Chlorhexidine Gluconate 3 pack 3 pack UNSCH PRN TOP 07/04/16 22:45 (Levophed-Dextrose Drip) 250 ml @ 0 mls/hr TITRATE IV 07/05/16 18:30 07/09/16 21:06 (Haldol Inj) 5 mg Q4H PRN IV 07/06/16 13:30 07/06/16 14:04 (Ativan Inj) 1 mg Q15M PRN IV PUSH 07/06/16 13:30 07/06/16 14:05 (Melatonin) 5 mg HS PO 07/06/16 21:00 07/11/16 20:23 Fentanyl Citrate 25 mcg 25 mcg Q30M PRN IV PUSH 07/06/16 13:45 07/07/16 09:03 Propofol 100 ml @ 0 mls/hr TITRATE IV 07/06/16 22:45 07/12/16 17:10 (fentaNYL DRIP) 250 ml @ 0 mls/hr TITRATE IV 07/06/16 22:45 07/12/16 09:54 (Valium) 5 mg Taper Q12HR PO 07/07/16 07:30 07/15/16 07:29 07/12/16 09:59 (Phoslo) 2,668 mg TID PO 07/07/16 09:00 07/12/16 17:10 (Pill Splitter) 1 ea UNSCH PRN OTHER 07/07/16 07:30 (Heparin Inj) 5,000 units Q8H SQ 07/08/16 20:00 07/12/16 12:35 (Zanaflex) 2 mg Q12H PO 07/10/16 02:00 07/12/16 12:34 (Miralax) 17 gm BID OG-TUBE 07/10/16 09:00 07/12/16 09:58 (Glycerin Adult Supp) 2 gm DAILY PRN RECTAL 07/10/16 08:15 (Tears Naturale Opth Soln) 1 drop Q8HR EACH EYE 07/10/16 14:00 07/12/16 12:36 (Lactulose Liq) 30 ml QID PO 07/11/16 09:00 07/12/16 17:10 (NS Flush) DAILY IVF 07/12/16 09:00 (NS Flush) UNSCH PRN IVF 07/11/16 16:45 (Aspirin Chew) 324 mg DAILY CHEW 07/11/16 17:30 07/12/16 09:59 (Glycerin Adult Supp) 2 gm BID PRN RECTAL 07/12/16 06:45 07/12/16 09:58 Quetiapine Fumarate 25 mg 25 mg BID PO 07/12/16 09:00 07/12/16 09:59 (NS 1000 ml Inj) 1,000 ml @ 100 mls/hr Q10H IV 07/12/16 17:00 07/12/16 17:10 Allergies Allergies Coded Allergies No Known Allergies ([id number]/7/07) Exam I&O / VS 07/11/16 07/11/16 07/12/16 15:00 23:00 07:00 Intake Total 562 ml 525 ml 670 ml Output Total 475 ml 550 ml 300 ml Balance 87 ml -25 ml 370 ml Intake IV Total 166 ml 97 ml 93 ml Tube Feeding 276 ml 272 ml 323 ml Lipid 156 ml 134 ml Tube Irrigant 120 ml Other 120 ml Output Urine Total 475 ml 550 ml 300 ml # Bowel Movements 0 0 0 Vital Signs Date Time Temp Pulse Resp B/P Pulse Ox O2 Delivery O2 Flow Rate FiO2 07/12/16 16:50 35 07/12/16 16:00 99.1 69 22 174/47 93 07/12/16 16:00 35 07/12/16 16:00 69 07/12/16 16:00 174/47 07/12/16 15:23 96 35 07/12/16 14:00 60 07/12/16 14:00 144/46 07/12/16 12:14 94 35 07/12/16 12:00 62 07/12/16 12:00 35 07/12/16 12:00 98.2 62 15 152/46 94 07/12/16 12:00 152/46 07/12/16 10:15 40 07/12/16 10:00 35 07/12/16 10:00 150/44 07/12/16 10:00 60 07/12/16 08:00 35 07/12/16 08:00 60 07/12/16 08:00 98.6 60 18 143/47 94 07/12/16 08:00 143/47 07/12/16 07:29 95 98 07/12/16 07:00 94 Mechanical Ventilator 35 07/12/16 06:00 127/43 07/12/16 06:00 64 07/12/16 04:03 94 35 07/12/16 04:00 99.2 65 18 136/42 97 07/12/16 04:00 150/48 07/12/16 04:00 65 07/12/16 04:00 40 07/12/16 02:00 66 07/12/16 02:00 139/44 07/12/16 00:00 99.7 65 18 136/42 97 07/12/16 00:00 150/48 07/12/16 00:00 40 07/12/16 00:00 56 07/11/16 23:47 96 35 07/11/16 22:00 130/40 07/11/16 22:00 56 07/11/16 20:04 97 35 07/11/16 20:00 154/48 07/11/16 20:00 40 07/11/16 20:00 99.0 56 18 136/42 93 07/11/16 20:00 56 07/11/16 19:00 93 Mechanical Ventilator 35 07/11/16 18:00 67 07/11/16 18:00 159/49 Exam Comments lethargic, does not follow complex commands CN--perrl, EOM intact Motor--no posturing or spontaneous limb movement Objective Radiology Results MRA brain--atherosclerosis but no large vessel occlusion MRA neck no significant carotd stenosis, 80 % vertebral stenosis left Micro and Labs Laboratory Tests Test 07/12/16 03:28 White Blood Count 17.1 Red Blood Count 2.69 Hemoglobin 8.6 Hematocrit 24.6 Mean Corpuscular Volume 91.6 Mean Corpuscular Hemoglobin 32.0 Mean Corpuscular Hemoglobin 34.9 Concent Red Cell Distribution Width 13.8 Platelet Count 99 Mean Platelet Volume 10.4 Neutrophils (%) (Auto) 82.0 Lymphocytes (%) (Auto) 5.3 Monocytes (%) (Auto) 9.9 Eosinophils (%) (Auto) 2.5 Basophils (%) (Auto) 0.3 Neutrophils # (Auto) 14.1 Lymphocytes # (Auto) 0.9 Monocytes # (Auto) 1.7 Eosinophils # (Auto) 0.4 Basophils # (Auto) 0.0 CBC Comment AUTO DIFF Differential Total Cells 100 Counted Neutrophils % (Manual) 88 Lymphocytes % 2 Monocytes % 5 Eosinophils % 3 Neutrophils # (Manual) 15.4 Metamyelocytes 2 Differential Comment FINAL DIFF MANUAL Platelet Estimate LOW Platelet Morphology Comment NORMAL Red Cell Morphology Comment NORMAL Sodium Level 135 Potassium Level 4.7 Chloride Level 97 Carbon Dioxide Level 24.1 Anion Gap 14 Blood Urea Nitrogen 127 Creatinine 5.46 Estimat Glomerular Filtration 11 Rate Random Glucose 113 Calcium Level 8.1 Phosphorus Level 5.6 Magnesium Level 3.1 Date/Time Procedure Status Source Growth 3/30/17 10:05 Aerobic Blood Culture - Preliminary Resulted Blood Peripheral NO GROWTH IN 1 DAY 07/11/16 10:05 Anaerobic Blood Culture - Preliminary Resulted Blood Peripheral NO GROWTH IN 1 DAY 07/11/16 09:05 Urine Culture - Preliminary Resulted Urine Catheterized Urine NO GROWTH IN 24 HOURS. 07/11/16 09:05 Gram Stain - Final Resulted Sputum Endotracheal 07/11/16 09:05 Sputum Culture - Preliminary Resulted Sputum Endotracheal HEAVY GROWTH NORMAL RESPIRATORY KIM... Dwight Smith PhD MD Jul 12, 2016 17:57
[2016-07-12] MEDS: MELATONIN 5 MG TAB PO SCH (22:00)
[2016-07-13] VITALS (18 sets, daily range): BP systolic 110–155; BP diastolic 16–61; PULSE 58–76; RESP 17–25; TEMP 97.9–99.3; O2SAT 69–99
[2016-07-13] MEDS: RESP: ALBUTEROL 2.5 MG/IPRATROPIUM 0.5 MG NEB (SCH) INH ×4 (03:26→19:49)
[2016-07-13] MEDS: CHLORHEXIDINE GLUCONATE 2 % 1 PACK (2 CLOTHS) TOP SCH (04:00)
[2016-07-13] MEDS: HEPARIN SODIUM - SQ 10,000 UNITS/ML VIAL SQ SCH ×3 (04:00→20:08)
[2016-07-13] MEDS: SODIUM CHLOR 0.9% 1000 ML INJ 1,000 ML IV SCH ×2 (05:55→13:24)
[2016-07-13] MEDS: ARTIFICIAL TEARS OPTH SOLN 15 ML BTL EACH EYE SCH ×3 (05:56→20:10)
[2016-07-13] MEDS: INSULIN NovoLIN REGULAR SUPPLEMENTAL SCALE SQ SCH ×4 (06:00→18:00)
[2016-07-13] MEDS: DIAZEPAM 10 MG TAB PO SCH ×2 (07:30→20:09)
--- NOTE | 2016-07-13 07:53 | PD.VS.PN ---
Subjective POD #: 9 Procedure(s): TEVAR, L LE fasciotomies for acute TBAD with visceral/renal/LLE malperfusion Subjective/Hospital Course NGT output feculent; KUB shows dilated loops; TF held. + bowel movement yesterday. Objective Neuro: Localizes to voice; MENSAH, still appropriately sedated Pulmonary: ventilated rate 18, CPAP x7h yesterday; CXR with B effusions Cardiac: Reg rate, no pressors overnight FEN/GI: TF held; Abd tympanetic this morning. K 4.7 : BUN/cr 127/5.5, stable; good UOP ID Antibiotics(date/duration): none WBC 17 (16) Tm 99.1 ID Cultures: NGTD Heme: Hct 25 Plt 99 Vascular: + signals B LE Lateral fasciotomy wound closed at BS this morning Laboratory Date/Time Procedure Status Source Growth 07/11/16 10:05 Aerobic Blood Culture - Preliminary Resulted Blood Peripheral NO GROWTH IN 1 DAY 07/11/16 10:05 Anaerobic Blood Culture - Preliminary Resulted Blood Peripheral NO GROWTH IN 1 DAY 07/11/16 09:05 Urine Culture - Preliminary Resulted Urine Catheterized Urine NO GROWTH IN 24 HOURS. 07/11/16 09:05 Gram Stain - Final Resulted Sputum Endotracheal 07/11/16 09:05 Sputum Culture - Preliminary Resulted Sputum Endotracheal HEAVY GROWTH NORMAL RESPIRATORY KIM... Imaging Last 48 hours Impressions Abdomen X-Ray 07/12/16 1643 Signed Impressions: Service Date/Time: Tuesday, July 12, 2016 16:54 - CONCLUSION: Progression of the colonic dilatation. Donis Hernandez MD FACR Chest X-Ray 07/12/16 0600 Signed Impressions: Service Date/Time: Tuesday, July 12, 2016 05:48 - CONCLUSION: Stable chest x-ray with bibasilar opacities likely representing pleural effusions with associated volume loss and/or airspace consolidation. Aleksey Turner MD Chest X-Ray 07/11/16 1644 Signed Impressions: Service Date/Time: June 16:44 - CONCLUSION: No change. Left central line in good position without pneumothorax. Joe Appiah Jr., MD Assessment and Plan Plan POD#8 s/p TEVAR and L LE fasciotomy Expected ATN - maybe resolving; weaning vent; new ileus 1. Neuro: MENSAH; CVA on MRI; will continue to lighten sedation and see if he follows commants; no focal deficits. 2. Resp: wean vent as tolerated; may req pleural drain if effusions affecting ability to come off vent; may also req trach 3. CV: can liberalize Goal SBP to 120 for SCI protection 4. FEN/GI: TF held; ileus. If not improved in 1-2d, may get CT (no IV contrast ) Monitor e'lytes. + bowel function 5. : ATN; will avoid nephrotoxic meds, exogenous K. Renal duplex looked great. No need for HD. Recheck creatinine tomorrow. 6. ID: no issues 7. Heme: Hct stable (25). 8. endocrine: SSI as per ICU team 9. continue pulse checks - perfusion to LLE restored with TEVAR 10. ALTERNATIVE CODE: NO CHEST COMPRESSIONS and NO CARDIOVERSION. Otherwise, continue all current levels of care. Hamlet Long MD FACS justice court deputy clerk [facility] [phone] Hamlet Long MD Jul 13, 2016 07:53
[2016-07-13] MEDS: SODIUM CHLORIDE 0.9% FLUSH 10 ML FLUSH IV FLUSH SCH (09:00)
[2016-07-13] MEDS: CHLORHEXIDINE 0.12% (ORAL KIT) 15 ML CUP MT SCH ×2 (09:46→20:00)
[2016-07-13] MEDS: PANTOPRAZOLE SODIUM 40 MG VIAL IV SCH (09:47)
[2016-07-13] MEDS: CALCIUM ACETATE 667 MG CAP PO SCH ×3 (09:47→18:21)
[2016-07-13] MEDS: ASPIRIN 81 MG CHEW TAB CHEW SCH (09:47)
[2016-07-13] MEDS: QUEtiapine FUMARATE 25 MG TAB PO SCH ×2 (09:47→20:09)
[2016-07-13] MEDS: MULTIVITAMIN TAB PO SCH (09:47)
[2016-07-13] MEDS: DOCUSATE SODIUM 50 MG/SENNA 8.6 MG TAB PO SCH ×2 (09:47→20:09)
[2016-07-13] MEDS: THIAMINE HCL 100 MG TAB PO SCH (09:47)
[2016-07-13] MEDS: POLYETHYLENE GLYCOL 17 GM PKG OG-TUBE SCH ×2 (09:47→20:08)
[2016-07-13] MEDS: LACTULOSE SYRUP 20 GM/30 ML CUP PO SCH ×4 (09:47→20:08)
[2016-07-13] MEDS: SODIUM CHLORIDE 0.9% FLUSH 10 ML FLUSH IVF SCH (09:48)
--- NOTE | 2016-07-13 10:06 | HHI.CCPN ---
Subjective Remarks/Hospital Course Hospital Course: This is a 60-year-old male who is transferred emergently from outside hospital with per report and acute type B dissection. Apparently the patient told his family member today that he had searing back pain and was taken to the emergency department. A CT of the chest at that time showed a type B dissection. The patient was intubated the outside facility and transferred to [place] for emergent evaluation management. Unfortunately, the patient is unable to provide any additional history at this time. I was at bedside and the patient arrived to the surgical intensive care unit. Dr. Long and I both evaluated the patient and when he arrived he was in a junctional bradycardia with heart rate in the 40s. He had obvious ST depressions in lead II on telemetry. Our initial concern was that we have extended the dissection into the type A dissection. We also did not have any CT of the abdomen and pelvis. On her physical exam, the patient had a cold left foot without pulses. I emergently placed a right radial arterial line, please see separate procedure note for details. We then went emergently to the CT scanner for repeat CT aortogram of the chest abdomen and pelvis to investigate the extent to which the dissection has extended. The CT aortogram demonstrated that this was still a type B dissection with the celiac artery being significantly compressed and possibly comprising flow from the dissection flap. The right kidney appears to be perfused off the false lumen and not the true lumen, and there is no contrast going down the left femoral artery. Patient was then brought back to the intensive care unit. His blood pressure is controlled on nicardipine infusion for goal systolic blood pressure less than 110. A 12-lead EKG at that time was done which demonstrated significant ST depressions in the inferior leads as well as the far lateral leads consistent with subendocardial ischemia. At the request of Dr. Long in anticipation of going emergently to the operative theater, I placed a lumbar drain for spinal protection, please see separate procedure note for details. At that point the patient was taken emergently to the operating room. Critical care medicine is been consulted to evaluate and manage the patient's type B dissection, hemodynamic's, acute hypoxic respiratory failure. 07/05: taken to OR for TEVAR overnight. lactate cleared overnight. uop adequate. Cr elevated to 1.8 this AM. He is on Coreg 50 mg by mouth 07/06: oliguric overnight. Cr rising. however, lactate cleared. other markers of end-organ perfusion better. likely ATN from time of dissection. awake following commands. moving bilateral lower extremities. clear CSF in lumbar drain. on intermittent norepinephrine to maintain spinal perfusion. 07/07: extubated yesterday, followed commands, good pulmonary mechanics. However , after extubation, became acutely delirious- probable combination of etoh withdraw and icu delirium, some pain. mental status waxed and waned throughout the day and ultimately reintubated overnight for worsening waning mental status and hypoxia. post-extubation it has been documented that he continues to move his bilateral lower extremities to painful stimuli and spontaneously. does not follow commands this morning. troponins downtrending. cardiology evaluated the patient yesterday, formal note pending, but per my conversation, plan was for ongoing conservative management as we are doing, and plan for nuc med stress test when stable. 07/08: still moving bilateral LEs spontaneously and w/d to pain. remains intubated with persistent agitation. hypoxia improving. platelets continue to fall, likely a combination of consumption, BUBBA, liver disease. will give unit of platelets prior to d/c lumbar drain. 07/09: Troponin spill resolving without evidence of ongoing injury. Major obstacle is agitation related to ETOH withdrawal followed by necessary sedation. Continue to work toward vent weaning. 07/10: Afebrile. Not following commands. Continues to be agitated for reasons above. Tolerating tube feeding at goal rate. Creatinine hopefully has plateaued. 07/11: CURRENT TEMPERATURE 100.2. MRI brain yesterday revealed left cellular restricted diffusion area likely acute infarct with small punctate areas within the coronal radiata possibly embolic event. Patient is arousable and will move all 4 extremities but not following commands. Left foot remains cool. Tolerating tube feeding. No bowel movement times 4 days. 07/12: Tmax 99.7. Currently 99. Noted right vertebral/distal left MCA/mid right PRICING ANALYST stenosis on imaging yesterday. Central line exchange from right to left side due to bleeding. No bowel movement for tolerating tube feedings with very low residuals. Still wean sedation. Subjective: 07/13: Currently afebrile. Patient with soap side enema yesterday with's positive BM 3 overnight.. Go containment device currently in place. Currently hypertensive/when necessary labetalol and clonidine will be added. Noted liberalize SCI around 120 systolic blood pressure. Arousable on the ventilator and moves all 4 extremities spontaneously but not following commands. Objective Vital Signs Date Time Temp Pulse Resp B/P Pulse Ox O2 Delivery O2 Flow Rate FiO2 07/13/16 06:00 07/13/16 06:00 60 07/13/16 04:00 35 07/13/16 04:00 98.6 18 97 07/12/16 19:00 Mechanical Ventilator Intake and Output 07/12/16 07/12/16 07/13/16 08:00 16:00 00:00 Intake Total 670 ml 878 ml 720 ml Output Total 300.0 ml 325.0 ml 490 ml Balance 370.0 ml 553.0 ml 230 ml Result Diagram: 07/12/16 0328 07/12/16 0328 Other Results Microbiology Date/Time Procedure Status Source Growth 07/11/16 10:05 Aerobic Blood Culture - Preliminary Resulted Blood Peripheral NO GROWTH IN 1 DAY 07/11/16 10:05 Anaerobic Blood Culture - Preliminary Resulted Blood Peripheral NO GROWTH IN 1 DAY 07/11/16 09:05 Urine Culture - Preliminary Resulted Urine Catheterized Urine NO GROWTH IN 24 HOURS. 07/11/16 09:05 Gram Stain - Final Resulted Sputum Endotracheal 07/11/16 09:05 Sputum Culture - Preliminary Resulted Sputum Endotracheal HEAVY GROWTH NORMAL RESPIRATORY KIM... Imaging Last Impressions Abdomen X-Ray 07/12/16 1643 Signed Impressions: Service Date/Time: Tuesday, July 12, 2016 16:54 - CONCLUSION: Progression of the colonic dilatation. Donis Hernandez MD FACR Chest X-Ray 07/12/16 0600 Signed Impressions: Service Date/Time: Tuesday, July 12, 2016 05:48 - CONCLUSION: Stable chest x-ray with bibasilar opacities likely representing pleural effusions with associated volume loss and/or airspace consolidation. Aleksey Turner MD Neck Magnetic Resonance Angiography 07/11/16 0000 Signed Impressions: Service Date/Time: June 14:29 - CONCLUSION: 1. No evidence of carotid stenosis. 2. Short segment high-grade stenosis involving the mid right vertebral artery greater than 80 with a patent left vertebral artery Abhijeet Salinas MD Head Magnetic Resonance Angiography 07/11/16 0000 Signed Impressions: Service Date/Time: June 14:29 - CONCLUSION: 1. Evidence of atherosclerotic disease with focal distal left MCA branch stenosis and focal mid right PRICING ANALYST stenosis. 2. No proximal high grade stenosis or aneurysm. Bladimir Gasca MD Brain MRI 07/10/16 0000 Signed Impressions: Service Date/Time: Sunday, July 10, 2016 15:03 - CONCLUSION: 1. Small punctate infarcts involving the left cerebellar hemisphere and deep white matter bilaterally in this patient with a background of amyloid angiopathy. No acute hemorrhage is seen. Abhijeet Salinas MD Renal Ultrasound 07/08/16 0000 Signed Impressions: Service Date/Time: Friday, July 08, 2016 17:16 - CONCLUSION: 1. Resistive indices could not be obtained on the right side into the patient's body habitus and shadowing bowel gas. Left renal artery resistive indices are within normal limits. 2. No significant abdominal aortic aneurysm identified status post repair. 3. Probable 7 mm nonobstructing midpole right renal calculus. 4. Tiny left lower pole cyst measuring 1.5 cm. Hamlet Vinson MD Aorta CTA 07/04/16 0000 Signed Impressions: Service Date/Time: June 19:53 - CONCLUSION: 1. Extensive aortic dissection extending from the proximal transverse aorta just distal to the origin of the left subclavian artery. Dissection extends distally through both superficial femoral arteries. 2. Occlusion of the right renal artery with absent perfusion of the right kidney. Dissection of the left renal artery with absent perfusion of the anterior left kidney. 3. 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 4. Occlusion of left external iliac artery and right internal iliac artery. 5. ET tube in satisfactory position. Dependent consolidation in both lungs. Probable mild liver cirrhosis. No obstruction or free fluid. Russell catheter in decompressed bladder. See above discussion. Rodriguez Jeff MD Objective Remarks GENERAL: 60-year-old male, critically ill currently orotracheally intubated HEENT: Normocephalic. Atraumatic. Pupils 3 mm, reactive, conjugate bilaterally. NECK: Trachea is midline. Supple. Left IJ is clean dry and intact. Orotracheally intubated CHEST: Clear to auscultation bilaterally without wheezes rales or rhonchi. CARDIOVASCULAR: RRR. S1, S2 no S4. Without murmur ABDOMEN: Protuberant, tender to palpation periumbilical region. No rigidity. Hypoactive bowel sounds are appreciated MUSCULOSKELETAL: Distal pulses 2+. Left lower extremity fasciotomy site covered with Sandeep wrap. Medial aspect is sutured. Right side is opened without bleeding Left foot is cool NEUROLOGICAL: Positive corneal reflex. Positive gag. Withdraws in both upper and LEs to noxious stimuli. Opens eyes but not following commands Urinary Catheter: Yes Russell insert reason: Prolonged Immobilization Vascular Central Line Catheter: Yes Assessment to: Continue Date of Insertion: Jul 11, 2016 Line: Central Venous Catheter Side: Left Location: Internal, Jugular A/P Assessment and Plan Neuro/Psych: Left cerebellar lacunar infarct Right vertebral/distal left MCA and mid right PRICING ANALYST stenosis Severe Agitated Delirium Alcohol Withdrawal - up to 15 beers daily Risk for spinal cord hypoperfusion Alcohol abuse History of polysubstance abuse including crack cocaine Lumbar drain placement - removed 07/08 Insomnia Propofol at 20 mcg/kg/m and, fentanyl at 50 mg an hour for sedation/analgesia while intubated -- Goal RASS -2 --Daily sedation vacation On melatonin 5 mg at night as needed for insomnia Daily thiamine 100 mg daily for EtOH use MRI brain 07/10 revealed left cerebellar cystic diffusion region with small punctate areas in the suarez radiata likely embolic. Possible amyloid. MRA head/neck revealed right vertebral 80% short segment stenosis, distal left MCA and mid right PRICING ANALYST stenosis EEG 07/10 revealed no seizure activity Delirium/Withdraw regimen: --Tizanidine 2mg po BID for pain adjuvant and to help with delirium --Seroquel 25 mg twice a day for delirium/weaning --Haldol 5mg iv q4h prn for breakthrough agitation. --Valium 5mg po q8hr for etoh withdraw, start slow taper over through 07/15 --Ativan 1mg iv q15min prn for withdraw symptoms --continue to avoid Precedex for now given recent junctional bradycardia, NSTEMI , and need for continued spinal cord protection with goal systolic blood pressure of 140 to 160 recommended per vascular surgery. -- Okayed with Dr. Long for aspirin 324 mg daily Respiratory: Acute hypoxic and hypercarbic respiratory failure -- PRVC 18/550/0.8/5/35 Vent bundle Bronchodilator therapy every 6 hours and albuterol every 2 hours when needed Head of bed 30 Yesterday SAT/SBT approximately 3 hours. Wean FiO2 for goal SPO2 greater than 92% Follow-up a.m. chest x-ray showed small pleural effusions bilaterally/ essentially stable chest x-ray Noted possibly will need bilateral chest tubes if unable to successfully wean. Possible tracheostomy Cardiovascular: Postop day #9 T4 with left lower x-ray fasciotomy secondary to type B aortic dissection with renal/visceral and left lower extreme L perfusion Thoracic endovascular stent with left lower extremity fasciotomy/ compartments with [address] Long Acute type B dissection- secured Type II NSTEMI- Demand Ischemia- resolving Junction bradycardia- resolved. Lactic Acidosis- resolved. Goal SBP > 120 for spinal cord protection -- troponin downtrending. 6.81 -- elevated troponins likely combination of demand ischemia and poor renal clearance -- Cardiology: Dr. Mondragon following. plan for conservative management with myocardial perfusion scan when stable. -- 2d echo: EF 55%, no RWMA. 2-D echo 07/08 repeat EF 60-65%. Mild MR. [facility] dilated. RENO 49 mmHg --Cardiac output currently is 9. SVV is 5 As needed labetalol/clonidine for systolic blood pressure greater than 160 Renal: Acute kidney injury Acute Tubular Necrosis Right nephrolithiasis Likely secondary to hypoperfusion of the kidney from dissection, ATN -- FENa 07/07 1.2% consistent with ATN. Urine eos negative. Urine urea ordered -- order renal ultrasound with doppler. Revealed patent renal arteries bilaterally. Tiny 7 mm right renal calculus and 1.5 cm left renal cyst. -- Strict I/Os Russell placement to be maintained --nephrology consult 07/08 appreciated. No indication for dialysis at this point Avoid nephrotoxins drugs BUN/creatinine. Stabilize. Urine output 1150 overnight A.m. laboratories pending FEN/GI: Colonic ileus Acute protein calorie malnutrition- mild Non-anion gap metabolic acidosis- resolved. Hyperphosphatemia Hyper-magnesium Hyponatremia History of peptic ulcer disease Hepatitis C -from IV drug use Elevated AST TF: Nepro at goal 40 cc an hour --nutrition consult. Daily BMP --Currently on PhosLo 2668 mg 3 times a day for hyperphosphatemia Protonix for GI prophylaxis. Stephie-Colace twice a day for bowel regimen. MiraLAX twice a day lactulose 4 times daily. KUB revealed 8 cm transverse colon ileus. Positive results with sepsis enema yesterday. All of KUB today. Possible CT abdomen/pelvis if no further improvement Enema if needed Heme/ID: Leukocytosislikely reactive Acute Blood Loss Anemia Thrombocytopenia Daily CBC No infectious etiology suspected this time Daily coags --thrombocytopenia is likely multifactorial from liver disease, consumptive from critical illness and dissection. Blood cultures/sputum ordered 07/10 no growth to date Endocrine: Hyperglycemia of critical illness -- SSI, medium scale, every 6 hours Prophylaxis: GI Prophylaxis Protonix 40 mg IV every 24 DVT Prophylaxis -- SCDs/heparin The patient may receive heparin subcutaneous every 12. Patient may additionally receive aspirin, but not Plavix. Lines: 07/04 right radial arterial line --07/04-07/11 right IJ cortis -- Left IJ CVL 07/11 present Critical Care: The total critical care time was 35 minutes. Time to perform other separately billable procedures was not included in the critical care time. Chris Helton MD Jul 13, 2016 10:06
[2016-07-13] MEDS: PROPOFOL 1000 MG/100 ML INJ 100 ML IV SCH (10:43)
[2016-07-13] MEDS: fentaNYL DRIP 250 ML IV SCH (10:43)
[2016-07-13 11:05] LABS: AUTOMATED NEUTROPHIL # 15.9 TH/MM3 (1.8-7.7); BASOPHIL % 0.1 % (0.0-2.0); EOSINOPHIL # 0.4 TH/MM3 (0-0.4); EOSINOPHIL % 2.3 % (0.0-4.0); HEMATOCRIT 26.1 % (39.0-51.0); LYMPH % 2.9 % (9.0-44.0); LYMPHOCYTE # 0.6 TH/MM3 (1.0-4.8); MEAN CELL VOLUME 93.7 FL (80.0-100.0); MEAN CORPUSCULAR HGB CONC 33.1 % (32.0-36.0); MONO % 10.2 % (0.0-8.0); NEUT % 84.5 % (16.0-70.0); PLATELET COUNT 167 TH/MM3 (150-450); RED BLOOD COUNT 2.78 MIL/MM3 (4.50-5.90); WHITE BLOOD COUNT 18.9 TH/MM3 (4.0-11.0)
--- NOTE | 2016-07-13 11:09 | RADRPT ---
EXAM DATE/TIME: 07/13/2016 10:32 [facility] COMPARISON: CHEST SINGLE AP, July 12, 2016, 5:48. INDICATIONS : Shortness of breath. MEDICAL HISTORY : Hypertension. Hepatitis C. Cardiovascular disease. SURGICAL HISTORY : Abdominal aortic aneurysm repair. ENCOUNTER: Initial ACUITY: 1 day PAIN SCORE: Non-responsive. LOCATION: Bilateral chest FINDINGS: ET tube, nasogastric tube, central venous catheter and stent graft are again noted. The heart remain s enlarged. Increasing bilateral pleural effusions are noted. CONCLUSION: Increasing bilateral pleural effusions. Donis Hernandez MD FACR on July 13, 2016 at 11:05 Board Certified Radiologist. This report was verified electronically.
[2016-07-13 11:12] LABS: HEMO FLAGS AUTO DIFF
--- NOTE | 2016-07-13 11:30 | RADRPT ---
EXAM DATE/TIME: 07/13/2016 10:34 [facility] COMPARISON: ABDOMEN KUB ONLY, July 12, 2016, 16:54. INDICATIONS : Evaluate for ileus. MEDICAL HISTORY : Hypertension. Hepatitis C. Cardiovascular disease. SURGICAL HISTORY : Abdominal aortic aneurysm repair. ENCOUNTER: Initial ACUITY: 1 day PAIN SCORE: Non-responsive. LOCATION: Bilateral abdomen. FINDINGS: Nasogastric tube and stent graft are again noted. There is nonspecific dilatation of colon. There i s no free air. CONCLUSION: Nonspecific dilatation of the colon. Donis Hernandez MD FACR on July 13, 2016 at 11:11 Board Certified Radiologist. This report was verified electronically.
[2016-07-13 11:46] LABS: ALKALINE PHOSPHATASE 147 U/L (45-117); ALT (GPT) 29 U/L (12-78); ANION GAP 10 MEQ/L (5-15); AST (GOT) 60 U/L (15-37); BICARBONATE 24.6 MEQ/L (21.0-32.0); BLOOD UREA NITROGEN 130 MG/DL (7-18); CHLORIDE 100 MEQ/L (98-107); GLOMERULAR FILTRATION RATE 10 ML/MIN (>89); MAGNESIUM 3.6 MG/DL (1.5-2.5); POTASSIUM 5.3 MEQ/L (3.5-5.1); SODIUM (NA) 135 MEQ/L (136-145); TOTAL BILIRUBIN ADULT 1.3 MG/DL (0.2-1.0)
[2016-07-13 11:57] LABS: PLATELET ESTIMATE SMEAR NORMAL (NORMAL); PLATELET MORPHOLOGY NORMAL (NORMAL); SCAN/DIFF AUTO DIFF CONFIRMED
--- NOTE | 2016-07-13 12:04 | PD.CONS ---
HPI History of Present Illness This is a 60 year old male who was transferred from an outside facility on for an Acute type B aortic dissection and emergently went for thoracic endovascular stent, intravascular ultrasound of the aorta, and left lower extremity fasciotomies (four compartment, two incisions) (07/04/16) with Dr. Long. He was also found to have several small probable embolic strokes and small chronic microscopic hemorrhages in the brain, possible amyloid angiopathy and is being followed by neurology. He remains in the ICU being treated for the above, as well as acute respiratory failure, Type II STEMI (demand ischemia) , acute kidney injury with acute tubular necrosis, protein calorie malnutrition , multiple electrolyte abnormalities, anemia, thrombocytopenia, leukocytosis, elevated LFTs, and colonic ileus. He is on a bowel regimen consisting of glycerin suppositories, lactulose, miralax, pericolace and he received soap suds enemas yesterday. He is passing liquid stool, but continues to have abdominal distention and is quite tender on exam. GI has been consulted for further evaluation. Today's KUB (07/13/16) revealed nonspecific dilatation of the colon. Of note, no obstruction was noted on CTA on 07/04. He is receiving fentanyl. 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 Hx of substance abuse. (Yuliana Whitten) Review of Systems ROS Unable to obtain (Yuliana Whitten) GI Exam Vitals I&O Vital Signs Date Time Temp Pulse Resp B/P Pulse Ox O2 Delivery O2 Flow Rate FiO2 07/13/16 06:00 07/13/16 06:00 60 07/13/16 04:00 35 07/13/16 04:00 07/13/16 04:00 98.6 62 18 142/45 97 07/13/16 04:00 60 07/13/16 03:32 97 35 07/13/16 02:00 07/13/16 02:00 58 07/13/16 00:00 07/13/16 00:00 35 07/13/16 00:00 64 07/13/16 00:00 98.7 64 18 148/44 95 07/12/16 22:00 07/12/16 22:00 64 07/12/16 20:44 95 35 07/12/16 20:00 66 07/12/16 20:00 35 07/12/16 20:00 98.8 66 18 158/43 96 07/12/16 20:00 07/12/16 19:00 96 Mechanical Ventilator 35 07/12/16 18:00 149/43 07/12/16 18:00 64 07/12/16 16:50 35 07/12/16 16:00 99.1 69 22 174/47 93 07/12/16 16:00 35 07/12/16 16:00 69 07/12/16 16:00 174/47 07/12/16 15:23 96 35 07/12/16 14:00 60 07/12/16 14:00 144/46 07/12/16 12:14 94 35 07/12/16 12:00 62 07/12/16 12:00 35 07/12/16 12:00 98.2 62 15 152/46 94 07/12/16 12:00 152/46 I/O 07/12/16 07/12/16 07/12/16 07/13/16 07/13/16 07/13/16 07:00 15:00 23:00 07:00 15:00 23:00 Intake Total 670 ml 878 ml 720 ml 960 ml Output Total 300 ml 325 ml 490 ml 620 ml Balance 370 ml 553 ml 230 ml 340 ml Intake Oral 0 ml 0 ml IV Total 93 ml 165 ml 720 ml 960 ml Tube Feeding 323 ml 413 ml Lipid 134 ml Other 120 ml 300 ml Output Urine Total 300 ml 325 ml 450 ml 300 ml Stool Total 20 ml Gastric Drainage Total 40 ml 300 ml Tube Feeding Residual Discard 0 ml 0 ml # Bowel Movements 0 0 Imaging Last Impressions Abdomen X-Ray 07/12/16 8543 Signed Impressions: Service Date/Time: Tuesday, July 12, 2016 16:54 - CONCLUSION: Progression of the colonic dilatation. Donis Hernandez MD FACR Chest X-Ray 07/12/16 0600 Signed Impressions: Service Date/Time: Tuesday, July 12, 2016 05:48 - CONCLUSION: Stable chest x-ray with bibasilar opacities likely representing pleural effusions with associated volume loss and/or airspace consolidation. Aleksey Turner MD Neck Magnetic Resonance Angiography 07/11/16 0000 Signed Impressions: Service Date/Time: June 14:29 - CONCLUSION: 1. No evidence of carotid stenosis. 2. Short segment high-grade stenosis involving the mid right vertebral artery greater than 80 with a patent left vertebral artery Abhijeet Salinas MD Head Magnetic Resonance Angiography 07/11/16 0000 Signed Impressions: Service Date/Time: June 14:29 - CONCLUSION: 1. Evidence of atherosclerotic disease with focal distal left MCA branch stenosis and focal mid right LADLE REPAIRMAN stenosis. 2. No proximal high grade stenosis or aneurysm. Bladimir Gasca MD Brain MRI 07/10/16 0000 Signed Impressions: Service Date/Time: Sunday, July 10, 2016 15:03 - CONCLUSION: 1. Small punctate infarcts involving the left cerebellar hemisphere and deep white matter bilaterally in this patient with a background of amyloid angiopathy. No acute hemorrhage is seen. Abhijeet Salinas MD Renal Ultrasound 07/08/16 0000 Signed Impressions: Service Date/Time: Friday, July 08, 2016 17:16 - CONCLUSION: 1. Resistive indices could not be obtained on the right side into the patient's body habitus and shadowing bowel gas. Left renal artery resistive indices are within normal limits. 2. No significant abdominal aortic aneurysm identified status post repair. 3. Probable 7 mm nonobstructing midpole right renal calculus. 4. Tiny left lower pole cyst measuring 1.5 cm. Hamlet Vinson MD Aorta CTA 07/04/16 0000 Signed Impressions: Service Date/Time: June 19:53 - CONCLUSION: 1. Extensive aortic dissection extending from the proximal transverse aorta just distal to the origin of the left subclavian artery. Dissection extends distally through both superficial femoral arteries. 2. Occlusion of the right renal artery with absent perfusion of the right kidney. Dissection of the left renal artery with absent perfusion of the anterior left kidney. 3. 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 4. Occlusion of left external iliac artery and right internal iliac artery. 5. ET tube in satisfactory position. Dependent consolidation in both lungs. Probable mild liver cirrhosis. No obstruction or free fluid. Russell catheter in decompressed bladder. See above discussion. Rodriguez Jeff MD Laboratory Test 07/13/16 10:20 White Blood Count 18.9 TH/MM3 Red Blood Count 2.78 MIL/MM3 Hemoglobin 8.6 GM/DL Hematocrit 26.1 % Mean Corpuscular Volume 93.7 FL Mean Corpuscular Hemoglobin 31.0 PG Mean Corpuscular Hemoglobin 33.1 % Concent Red Cell Distribution Width 14.0 % Platelet Count 167 TH/MM3 Mean Platelet Volume 9.9 FL Neutrophils (%) (Auto) 84.5 % Lymphocytes (%) (Auto) 2.9 % Monocytes (%) (Auto) 10.2 % Eosinophils (%) (Auto) 2.3 % Basophils (%) (Auto) 0.1 % Neutrophils # (Auto) 15.9 TH/MM3 Lymphocytes # (Auto) 0.6 TH/MM3 Monocytes # (Auto) 1.9 TH/MM3 Eosinophils # (Auto) 0.4 TH/MM3 Basophils # (Auto) 0.0 TH/MM3 CBC Comment AUTO DIFF Date/Time Procedure Status Source Growth 07/11/16 10:05 Aerobic Blood Culture - Preliminary Resulted Blood Peripheral NO GROWTH IN 2 DAYS 07/11/16 10:05 Anaerobic Blood Culture - Preliminary Resulted Blood Peripheral NO GROWTH IN 2 DAYS 07/11/16 09:05 Urine Culture - Preliminary Resulted Urine Catheterized Urine NO GROWTH IN 24 HOURS. 07/11/16 09:05 Gram Stain - Final Resulted Sputum Endotracheal 07/11/16 09:05 Sputum Culture - Preliminary Resulted Sputum Endotracheal HEAVY GROWTH NORMAL RESPIRATORY MALINDA... Physical Examination HEENT: Normocephalic; atraumatic; no jaundice. CHEST: OETT to vent. 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 (Yuliana Whitten) Assessment and Plan Plan ASSESSMENT: - Colonic Ileus. He is on a bowel regimen consisting of glycerin suppositories , lactulose, miralax, pericolace and he received soap suds enemas yesterday. He is passing liquid stool, but continues to have abdominal distention and is quite tender on exam. GI has been consulted for further evaluation. Transverse colon yesterday was 8cm. Today's KUB (07/13/16) revealed nonspecific dilatation of the colon. Of note, no obstruction was noted on CTA on 07/04. He is receiving fentanyl. Will give dose of relistor and see if he responds to this. Repeat imaging in am. Of note, he as bradycardia at times and therefore would avoid neostigmine. - Elevated LFTs. Pt has hx of cirrhosis/HCV according to chart. LFTs have been improving although today's are pending. - Acute type B aortic dissection, S/P thoracic endovascular stent, intravascular ultrasound of the aorta, and left lower extremity fasciotomies (four compartment, two incisions) (07/04/16) with Dr. Long. - Small embolic strokes with small chronic microscopic hemorrhages in the brain , possible amyloid angiopathy per neurology. - Acute respiratory failure, Vent per [facility]. - Type II STEMI (demand ischemia) - Acute kidney injury with acute tubular necrosis and electrolyte abnormalities. Renal following. - Protein calorie malnutrition. Time Buyer recommends Nepro, Rec goal rate @ 40ml/hr. ? PEG tube in future. - Anemia. 8.6/26.1. - Thrombocytopenia. IMPROVED. - Leukocytosis, persistent. WBC 18.9. Afebrile. BCx no growth 2 days, urine no growth 24 hours. Sputum with heavy growth of normal malinda. PLAN: - NPO today - Relistor 12mg sq x 1 now - If he responds to this, consider starting trickle feeds to see if that will stimulate his bowel more - Add reglan reduced dose - Cont. bowel regimen- lactulose, pericolace, miralax - KUB in am - Supportive care - Further recommendations to follow based on results of above - PT seen and examined by Dr. Simon and myself and this note is written on his behalf (Yuliana Whitten) Physician Comments Seen and examined with DELON, Chart reviewed, pt. examined. Ct abd/pelvis with po contrast only today to R/O ischemia. Relistore as ordered. Colonoscopy planned. Will follow. Thank you (Rachel Simon MD) Yuliana Whitten Jul 13, 2016 12:04 Rachel Simon MD Jul 13, 2016 13:51
[2016-07-13] MEDS ORDERED: METHYLNALTREXONE BROMIDE 12 MG/0.6 ML VIAL SQ ONE (12:15)
[2016-07-13] MEDS: METOCLOPRAMIDE HCL 10 MG/2 ML VIAL IV PUSH SCH ×2 (13:22→20:10)
--- NOTE | 2016-07-13 13:24 | HHI.NPPN ---
Subjective History of Present Illness This patient is a 60-year-old male apparently with a history of previous alcohol and crack usage also has a history of hepatitis C, coronary disease and hypertension as well as medical noncompliance. Patient was admitted with a type B aortic dissection. CTA thoracic aorta and abdominal aorta performed July 04, 2016 revealed occluded right renal artery as well as perfusion only to the left posterior aspect of the left kidney. Patient status post emergent TAVA, left lower extremity fasciectomy mention of previous nonperfusion to that extremity. Patient's creatinine level was within normal range from previous records prior to this admission however patient had evidence of renal sufficiency on presentation and his creatinine level has continued to rise to a level of 4.75 Date of Consultation with marginal urine output. Interval History Remains intubated Eyes are open and moving all 4 ext. (Paty Rizo) Review of Systems General General Remarks Unobtainable because of clinical status. (Paty Rizo) Objective Data Data 07/12/16 07/13/16 19:00 07:00 Intake Total 878 ml 1680 ml Output Total 325.0 ml 1110 ml Balance 553.0 ml 570 ml Intake Oral 0 ml IV Total 165 ml 1680 ml Tube Feeding 413 ml Other 300 ml Output Urine Total 325 ml 750 ml Stool Total 20 ml Gastric Drainage Total 340 ml Tube Feeding Residual Discard 0 ml # Bowel Movements 0 Vital Signs Date Time Temp Pulse Resp B/P Pulse Ox O2 Delivery O2 Flow Rate FiO2 07/13/16 06:00 07/13/16 06:00 60 07/13/16 04:00 35 07/13/16 04:00 07/13/16 04:00 98.6 62 18 142/45 97 07/13/16 04:00 60 07/13/16 03:32 97 35 07/13/16 02:00 07/13/16 02:00 58 07/13/16 00:00 07/13/16 00:00 35 07/13/16 00:00 64 07/13/16 00:00 98.7 64 18 148/44 95 07/12/16 22:00 07/12/16 22:00 64 07/12/16 20:44 95 35 07/12/16 20:00 66 07/12/16 20:00 35 07/12/16 20:00 98.8 66 18 158/43 96 07/12/16 20:00 07/12/16 19:00 96 Mechanical Ventilator 35 07/12/16 18:00 149/43 07/12/16 18:00 64 07/12/16 16:50 35 07/12/16 16:00 99.1 69 22 174/47 93 07/12/16 16:00 35 07/12/16 16:00 69 07/12/16 16:00 174/47 07/12/16 15:23 96 35 07/12/16 14:00 60 07/12/16 14:00 144/46 (Paty Rizo) -: 07/13/16 1020 07/13/16 1020 Medication Review Current Medications Medications (Trade) Dose Ordered Sig/Sascha Route Start Time Stop Time Status Last Admin (Peridex 0.12% Liq) 15 ml BID@08,20 MT 07/05/16 08:00 07/13/16 09:46 (D50w (Vial) Inj) 25 ml UNSCH PRN IV PUSH 07/04/16 22:45 (NovoLIN R SUPPLEMENTAL SCALE) 1 Q6HR SQ 07/05/16 00:00 07/09/16 18:00 (Vitamin B1) 100 mg DAILY PO 07/08/16 09:00 07/13/16 09:47 (Theragran) 1 tab DAILY PO 07/05/16 09:00 07/13/16 09:47 (NS Flush) 2 ml UNSCH PRN IV FLUSH 07/04/16 22:45 (NS Flush) 2 ml BID IV FLUSH 07/05/16 09:00 07/12/16 09:59 (Tylenol) 650 mg Q6H PRN PO 07/04/16 22:45 07/11/16 04:32 (Protonix Inj) 40 mg DAILY IV 07/05/16 09:00 07/13/16 09:47 (Zofran Inj) 4 mg Q6H PRN IV 07/04/16 22:45 (Stephie-Colace) 2 tab BID PO 07/05/16 09:00 07/13/16 09:47 Miscellaneous Information 1 Q361D XX 07/04/16 22:45 (Chlorhexidine 2% Cloth) Taper DAILY@04 TOP 07/05/16 04:00 07/01/17 03:59 07/13/16 04:00 Chlorhexidine Gluconate 3 pack 3 pack UNSCH PRN TOP 07/04/16 22:45 (Levophed-Dextrose Drip) 250 ml @ 0 mls/hr TITRATE IV 07/05/16 18:30 07/09/16 21:06 (Haldol Inj) 5 mg Q4H PRN IV 07/06/16 13:30 07/06/16 14:04 (Ativan Inj) 1 mg Q15M PRN IV PUSH 07/06/16 13:30 07/06/16 14:05 (Melatonin) 5 mg HS PO 07/06/16 21:00 07/12/16 22:00 Fentanyl Citrate 25 mcg 25 mcg Q30M PRN IV PUSH 07/06/16 13:45 07/07/16 09:03 Propofol 100 ml @ 0 mls/hr TITRATE IV 07/06/16 22:45 07/13/16 10:43 (fentaNYL DRIP) 250 ml @ 0 mls/hr TITRATE IV 07/06/16 22:45 07/13/16 10:43 (Valium) 5 mg Taper Q24H PO 07/07/16 07:30 07/15/16 07:29 07/12/16 22:00 (Phoslo) 2,668 mg TID PO 07/07/16 09:00 07/13/16 09:47 (Pill Splitter) 1 ea UNSCH PRN OTHER 07/07/16 07:30 (Heparin Inj) 5,000 units Q8H SQ 07/08/16 20:00 07/13/16 04:00 (Zanaflex) 2 mg Q12H PO 07/10/16 02:00 07/13/16 05:55 (Miralax) 17 gm BID OG-TUBE 07/10/16 09:00 07/13/16 09:47 (Glycerin Adult Supp) 2 gm DAILY PRN RECTAL 07/10/16 08:15 (Tears Naturale Opth Soln) 1 drop Q8HR EACH EYE 07/10/16 14:00 07/13/16 05:56 (Lactulose Liq) 30 ml QID PO 07/11/16 09:00 07/13/16 09:47 (NS Flush) DAILY IVF 07/12/16 09:00 07/13/16 09:48 (NS Flush) UNSCH PRN IVF 07/11/16 16:45 (Aspirin Chew) 324 mg DAILY CHEW 07/11/16 17:30 07/13/16 09:47 (Glycerin Adult Supp) 2 gm BID PRN RECTAL 07/12/16 06:45 07/12/16 09:58 Quetiapine Fumarate 25 mg 25 mg BID PO 07/12/16 09:00 07/13/16 09:47 (NS 1000 ml Inj) 1,000 ml @ 100 mls/hr Q10H IV 07/12/16 17:00 07/13/16 05:55 (Trandate Inj) 10 mg Q1HR PRN IV PUSH 07/13/16 10:00 (Catapres) 0.1 mg Q6H PRN PO 07/13/16 10:00 (Reglan Inj) 5 mg Q8HR IV PUSH 07/13/16 14:00 (Paty Rizo) Physical Exam General Appearance: No Acute Distress, Comfortable (Paty Rizo) Pulmonary Resp Exam: Clear Bilaterally, Breath Sounds Equal, No Distress (Paty Rizo) Cardiology CV Exam: Regular, Normal Sinus Rhythm (Paty Rizo) Gastrointestinal/Abdomen GI Exam: Soft, Non-Tender (Paty Rizo) Integumentary Skin Exam: Clear, Warm (Paty Rizo) Extremeties Extremities Exam: Trace Edema Extremeties Remarks Hands and BLE (Paty Rizo) Assessment/Plan Problem List: (1) Acute kidney insufficiency Plan: Patient most likely has sustained severe ischemic injuries to both kidneys as a result of dissection involving renal arteries. Azotemia is worsening. UOP fair. Will re-eval in the AM. Dialytic support may need to be initiated if worsening Medications should be adjusted for the patient's estimated GFR if clinically indicated. Avoid agents with significant potential for nephrotoxicity possible including NSAIDs for analgesia, iodine contrast agents if possible. Gadolinium is contraindicated if the GFR is below 30. (2) Hepatitis C Plan: Not playing a role as far as his acute renal failure is concerned in this setting. (3) HTN (hypertension) (4) Hyperphosphatemia Plan: Secondary to renal failure. Noted phosphate binder started. (Paty Rizo) Plan The exam, history, and the medical decision-making described in the above note were completed with the assistance of the PAMarva. I reviewed and agree with the findings presented. (Eufemia Walters MD) Paty Rizo Jul 13, 2016 13:24 Eufemia Walters MD Jul 13, 2016 16:09
[2016-07-13] MEDS ORDERED: DIATRIZOATE MEGLUM/DIATRIZOATE SOD 9 ML CUP PO ONE (13:30)
--- NOTE | 2016-07-13 18:44 | RADRPT ---
EXAM DATE/TIME: 07/13/2016 17:29 [facility] COMPARISON: No previous studies available for comparison. INDICATIONS : Abdomen pain and distention. ORAL CONTRAST: No oral contrast ingested. RADIATION DOSE: 12.54 CTDIvol (mGy) MEDICAL HISTORY : Cardiovascular disease. Hypertension. Ulcer. SURGICAL HISTORY : None. ENCOUNTER: Initial ACUITY: 1 day PAIN SCALE: Non-responsive LOCATION: Bilateral abdomen. TECHNIQUE: Volumetric scanning of the abdomen and pelvis was performed. Using automated exposure control and ad justment of the mA and/or kV according to patient size, radiation dose was kept as low as reasonably achievable to obtain optimal diagnostic quality images. FINDINGS: The liver and spleen are grossly unremarkable for noncontrast technique. The gallbladder has an abno rmal appearance with wall thickening and hazy margination to the gallbladder suggesting possible ramesh cholecystic fluid. There no calcified stones seen. No dilation of the intra-or extrahepatic biliary system. Endostent is present in the distal thoracic and proximal abdominal aorta. Gastric tube tip in the st omach. There are 2 calcified stones in the midpole of the right kidney measuring up to 5 mm. There is a solitary 2 mm stone in the lower pole left kidney. No evidence of hydronephrosis on either side . Both ureters are normal in dimension. A Russell catheter within the urinary bladder. There is a re ctal tube in place. Oral contrast passes through to the right colon. No dilated loops of small bowel. There is a promin ent amount of stool in the left colon down to the proximal sigmoid colon. No evidence of free fluid. The pancreas is normal in configuration. Russell catheter in the urinary bladder. Small bilateral ing uinal hernias containing fat. There is bilateral lower lung segmental consolidation with air broncho grams and with small bilateral pleural effusions measuring up to 2 cm in thickness. CONCLUSION: 1. Abnormal appearance of the gallbladder with wall thickening and possible pericholecystic fluid. N o calcified stones. Recommend hepatobiliary tract scan to evaluate for acalculus cholecystitis. 2. Bilateral lower lung consolidation and bilateral pleural effusions. 3. Moderate amount of stool in the left colon. 4. Bilateral nonobstructing renal stones. Joe De Leon MD on July 13, 2016 at 18:37 Board Certified Radiologist. This report was verified electronically.
[2016-07-13] MEDS: MELATONIN 5 MG TAB PO SCH (20:09)
[2016-07-14] VITALS (18 sets, daily range): BP systolic 104–180; BP diastolic 45–68; PULSE 53–99; RESP 18; TEMP 98.5–100.2; O2SAT 95–99
[2016-07-14] MEDS: SODIUM CHLOR 0.9% 1000 ML INJ 1,000 ML IV SCH ×3 (00:29→18:01)
[2016-07-14] MEDS: RESP: ALBUTEROL 2.5 MG/IPRATROPIUM 0.5 MG NEB (SCH) INH ×4 (03:24→20:10)
[2016-07-14] MEDS: CHLORHEXIDINE GLUCONATE 2 % 1 PACK (2 CLOTHS) TOP SCH (04:00)
[2016-07-14] MEDS: HEPARIN SODIUM - SQ 10,000 UNITS/ML VIAL SQ SCH ×3 (05:01→20:00)
[2016-07-14] MEDS: METOCLOPRAMIDE HCL 10 MG/2 ML VIAL IV PUSH SCH ×3 (05:01→20:01)
[2016-07-14] MEDS: ARTIFICIAL TEARS OPTH SOLN 15 ML BTL EACH EYE SCH ×3 (05:02→20:00)
--- NOTE | 2016-07-14 05:02 | RADRPT ---
EXAM DATE/TIME: 07/14/2016 03:11 [facility] COMPARISON: CHEST SINGLE AP, July 13, 2016, 10:32. INDICATIONS : Respiratory failure. MEDICAL HISTORY : Hypertension. Hepatitis C. Aneurysm, abdominal. SURGICAL HISTORY : Abdominal aortic aneurysm repair. ENCOUNTER: Subsequent ACUITY: 1 week PAIN SCORE: Non-responsive. LOCATION: Bilateral chest FINDINGS: Portable AP view of the chest demonstrates cardiac silhouette size at the upper limits for normal wit h aortic stent graft present. ETT, left IJ line, and nasogastric tube remain present. Multiple lines overlie the patient. There are stable bibasilar pleural-parenchymal opacities, left larger than right . No pneumothorax is visualized. CONCLUSION: Stable chest x-ray with bibasilar opacities, left greater than right. Aleksey Turner MD on July 14, 2016 at 5:00 Board Certified Radiologist. This report was verified electronically.
--- NOTE | 2016-07-14 05:20 | RADRPT ---
EXAM DATE/TIME: 07/14/2016 03:14 [facility] COMPARISON: CT ABDOMEN & PELVIS W/O CONTRAST, July 13, 2016, 17:29. ABDOMEN KUB ONLY, July 13, 2016, 10:34. INDICATIONS : Distention. MEDICAL HISTORY : Aneurysm, abdominal. Hepatitis C. Cardiovascular disease. Hypertension. SURGICAL HISTORY : Abdominal aortic aneurysm repair. ENCOUNTER: Subsequent ACUITY: 1 week PAIN SCORE: Non-responsive. LOCATION: abdomen, all quadrants. FINDINGS: 2 supine frontal views of the abdomen demonstrate a paucity of bowel gas but no findings to suggest o bstruction. Nasogastric tube is in the stomach. There is mild motion artifact. Catheter is present wi thin the urinary bladder. Distal aspect of the aortic stent graft is present. No acute osseous abnorm ality is seen. CONCLUSION: There is a paucity of bowel with no findings to suggest obstruction. Aleksey Turner MD on July 14, 2016 at 5:17 Board Certified Radiologist. This report was verified electronically.
[2016-07-14 05:40] LABS: AUTOMATED NEUTROPHIL # 13.6 TH/MM3 (1.8-7.7); BASOPHIL # 0.1 TH/MM3 (0-0.2); BASOPHIL % 0.8 % (0.0-2.0); EOSINOPHIL # 0.4 TH/MM3 (0-0.4); EOSINOPHIL % 2.2 % (0.0-4.0); HEMATOCRIT 23.6 % (39.0-51.0); LYMPH % 3.7 % (9.0-44.0); LYMPHOCYTE # 0.6 TH/MM3 (1.0-4.8); MEAN CELL VOLUME 93.2 FL (80.0-100.0); MEAN CORPUSCULAR HEMOGLOBIN 30.9 PG (27.0-34.0); MEAN CORPUSCULAR HGB CONC 33.2 % (32.0-36.0); MONO % 10.9 % (0.0-8.0); NEUT % 82.4 % (16.0-70.0); PLATELET COUNT 232 TH/MM3 (150-450); RED BLOOD COUNT 2.54 MIL/MM3 (4.50-5.90); RED CELL DISTRIBUTION WIDTH 13.7 % (11.6-17.2); WHITE BLOOD COUNT 16.4 TH/MM3 (4.0-11.0)
[2016-07-14 05:45] LABS: HEMO FLAGS AUTO DIFF
[2016-07-14 05:57] LABS: BICARBONATE 23.2 MEQ/L (21.0-32.0)
[2016-07-14] MEDS: INSULIN NovoLIN REGULAR SUPPLEMENTAL SCALE SQ SCH ×4 (06:00→18:00)
[2016-07-14 06:24] LABS: BANDS 2 % (0-6); EOSINOPHILS 4 % (0-4); NEUTROPHIL # MANUAL DIFF 13.6 TH/MM3 (1.8-7.7); PLATELET ESTIMATE SMEAR NORMAL (NORMAL); PLATELET MORPHOLOGY NORMAL (NORMAL); POLYS (SEG NEUTROPHILS) 81 % (16-70); SCAN/DIFF FINAL DIFF MANUAL; WBC DIFF SAMPLE 100
--- NOTE | 2016-07-14 06:53 | HHI.CCPN ---
Subjective Remarks/Hospital Course Hospital Course: This is a 60-year-old male who is transferred emergently from outside hospital with per report and acute type B dissection. Apparently the patient told his family member today that he had searing back pain and was taken to the emergency department. A CT of the chest at that time showed a type B dissection. The patient was intubated the outside facility and transferred to [place] for emergent evaluation management. Unfortunately, the patient is unable to provide any additional history at this time. I was at bedside and the patient arrived to the surgical intensive care unit. Dr. Long and I both evaluated the patient and when he arrived he was in a junctional bradycardia with heart rate in the 40s. He had obvious ST depressions in lead II on telemetry. Our initial concern was that we have extended the dissection into the type A dissection. We also did not have any CT of the abdomen and pelvis. On her physical exam, the patient had a cold left foot without pulses. I emergently placed a right radial arterial line, please see separate procedure note for details. We then went emergently to the CT scanner for repeat CT aortogram of the chest abdomen and pelvis to investigate the extent to which the dissection has extended. The CT aortogram demonstrated that this was still a type B dissection with the celiac artery being significantly compressed and possibly comprising flow from the dissection flap. The right kidney appears to be perfused off the false lumen and not the true lumen, and there is no contrast going down the left femoral artery. Patient was then brought back to the intensive care unit. His blood pressure is controlled on nicardipine infusion for goal systolic blood pressure less than 110. A 12-lead EKG at that time was done which demonstrated significant ST depressions in the inferior leads as well as the far lateral leads consistent with subendocardial ischemia. At the request of Dr. Long in anticipation of going emergently to the operative theater, I placed a lumbar drain for spinal protection, please see separate procedure note for details. At that point the patient was taken emergently to the operating room. Critical care medicine is been consulted to evaluate and manage the patient's type B dissection, hemodynamic's, acute hypoxic respiratory failure. 07/05: taken to OR for TEVAR overnight. lactate cleared overnight. uop adequate. Cr elevated to 1.8 this AM. He is on Coreg 50 mg by mouth 07/06: oliguric overnight. Cr rising. however, lactate cleared. other markers of end-organ perfusion better. likely ATN from time of dissection. awake following commands. moving bilateral lower extremities. clear CSF in lumbar drain. on intermittent norepinephrine to maintain spinal perfusion. 07/07: extubated yesterday, followed commands, good pulmonary mechanics. However , after extubation, became acutely delirious- probable combination of etoh withdraw and icu delirium, some pain. mental status waxed and waned throughout the day and ultimately reintubated overnight for worsening waning mental status and hypoxia. post-extubation it has been documented that he continues to move his bilateral lower extremities to painful stimuli and spontaneously. does not follow commands this morning. troponins downtrending. cardiology evaluated the patient yesterday, formal note pending, but per my conversation, plan was for ongoing conservative management as we are doing, and plan for nuc med stress test when stable. 07/08: still moving bilateral LEs spontaneously and w/d to pain. remains intubated with persistent agitation. hypoxia improving. platelets continue to fall, likely a combination of consumption, BUBBA, liver disease. will give unit of platelets prior to d/c lumbar drain. 07/09: Troponin spill resolving without evidence of ongoing injury. Major obstacle is agitation related to ETOH withdrawal followed by necessary sedation. Continue to work toward vent weaning. 07/10: Afebrile. Not following commands. Continues to be agitated for reasons above. Tolerating tube feeding at goal rate. Creatinine hopefully has plateaued. 07/11: CURRENT TEMPERATURE 100.2. MRI brain yesterday revealed left cellular restricted diffusion area likely acute infarct with small punctate areas within the coronal radiata possibly embolic event. Patient is arousable and will move all 4 extremities but not following commands. Left foot remains cool. Tolerating tube feeding. No bowel movement times 4 days. 07/12: Tmax 99.7. Currently 99. Noted right vertebral/distal left MCA/mid right MARGARINE CHURN OPERATOR stenosis on imaging yesterday. Central line exchange from right to left side due to bleeding. No bowel movement for tolerating tube feedings with very low residuals. Still wean sedation. 07/13: Currently afebrile. Patient with soap side enema yesterday with's positive BM 3 overnight.. Go containment device currently in place. Currently hypertensive/when necessary labetalol and clonidine will be added. Noted liberalize SCI around 120 systolic blood pressure. Arousable on the ventilator and moves all 4 extremities spontaneously but not following commands. Subjective: 07/14: Tmax 99.3. No significant bowel movement overnight. Currently hypotensive. Noted SCI around 120 systolic blood pressure recommended by vascular surgery. Arousable on ventilator on sedation vacation moves all 4 extremity spontaneously but not to commands. Objective Vital Signs Date Time Temp Pulse Resp B/P Pulse Ox O2 Delivery O2 Flow Rate FiO2 07/14/16 04:23 95 35 07/14/16 04:00 99.3 62 18 104/55 07/13/16 19:00 Mechanical Ventilator Intake and Output 07/13/16 07/13/16 07/14/16 08:00 16:00 00:00 Intake Total 960 ml 1550 ml 1025 ml Output Total 620 ml 890 ml 600 ml Balance 340 ml 660 ml 425 ml Result Diagram: 07/14/16 0515 07/14/16 0515 Other Results Microbiology Date/Time Procedure Status Source Growth 07/11/16 10:05 Aerobic Blood Culture - Preliminary Resulted Blood Peripheral NO GROWTH IN 2 DAYS 07/11/16 10:05 Anaerobic Blood Culture - Preliminary Resulted Blood Peripheral NO GROWTH IN 2 DAYS 07/11/16 09:05 Urine Culture - Final Complete Urine Catheterized Urine NO GROWTH IN 48 HOURS. 07/11/16 09:05 Gram Stain - Final Complete Sputum Endotracheal 07/11/16 09:05 Sputum Culture - Final Complete Sputum Endotracheal HEAVY GROWTH NORMAL RESPIRATORY [facility] Imaging Last Impressions Chest X-Ray 07/14/16 0600 Signed Impressions: Service Date/Time: Thursday, July 14, 2016 03:11 - CONCLUSION: Stable chest x-ray with bibasilar opacities, left greater than right. Aleksey Turner MD Abdomen X-Ray 07/14/16 0600 Signed Impressions: Service Date/Time: Thursday, July 14, 2016 03:14 - CONCLUSION: There is a paucity of bowel with no findings to suggest obstruction. Aleksey Turner MD Abdomen/Pelvis CT 07/13/16 0000 Signed Impressions: Service Date/Time: Wednesday, July 13, 2016 17:29 - CONCLUSION: 1. Abnormal appearance of the gallbladder with wall thickening and possible pericholecystic fluid. No calcified stones. Recommend hepatobiliary tract scan to evaluate for acalculus cholecystitis. 2. Bilateral lower lung consolidation and bilateral pleural effusions. 3. Moderate amount of stool in the left colon. 4. Bilateral nonobstructing renal stones. Joe De Leon MD Neck Magnetic Resonance Angiography 07/11/16 Signed Impressions: Service Date/Time: June 14:29 - CONCLUSION: 1. No evidence of carotid stenosis. 2. Short segment high-grade stenosis involving the mid right vertebral artery greater than 80 with a patent left vertebral artery Abhijeet Salinas MD Head Magnetic Resonance Angiography 07/11/16 Signed Impressions: Service Date/Time: June 14:29 - CONCLUSION: 1. Evidence of atherosclerotic disease with focal distal left MCA branch stenosis and focal mid right MARGARINE CHURN OPERATOR stenosis. 2. No proximal high grade stenosis or aneurysm. Bladimir Gasca MD Brain MRI 07/10/16 0000 Signed Impressions: Service Date/Time: Sunday, July 10, 2016 15:03 - CONCLUSION: 1. Small punctate infarcts involving the left cerebellar hemisphere and deep white matter bilaterally in this patient with a background of amyloid angiopathy. No acute hemorrhage is seen. Abhijeet Salinas MD Renal Ultrasound 07/08/16 0000 Signed Impressions: Service Date/Time: Friday, July 08, 2016 17:16 - CONCLUSION: 1. Resistive indices could not be obtained on the right side into the patient's body habitus and shadowing bowel gas. Left renal artery resistive indices are within normal limits. 2. No significant abdominal aortic aneurysm identified status post repair. 3. Probable 7 mm nonobstructing midpole right renal calculus. 4. Tiny left lower pole cyst measuring 1.5 cm. Hamlet Vinson MD Aorta CTA 07/04/16 0000 Signed Impressions: Service Date/Time: June 19:53 - CONCLUSION: 1. Extensive aortic dissection extending from the proximal transverse aorta just distal to the origin of the left subclavian artery. Dissection extends distally through both superficial femoral arteries. 2. Occlusion of the right renal artery with absent perfusion of the right kidney. Dissection of the left renal artery with absent perfusion of the anterior left kidney. 3. 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 4. Occlusion of left external iliac artery and right internal iliac artery. 5. ET tube in satisfactory position. Dependent consolidation in both lungs. Probable mild liver cirrhosis. No obstruction or free fluid. Russell catheter in decompressed bladder. See above discussion. Rodriguez Jeff MD Objective Remarks GENERAL: 60-year-old male, critically ill currently orotracheally intubated HEENT: Normocephalic. Atraumatic. Pupils 3 mm, reactive, conjugate bilaterally. NECK: Trachea is midline. Supple. Left IJ is clean dry and intact. Orotracheally intubated CHEST: Clear to auscultation bilaterally without wheezes rales or rhonchi. CARDIOVASCULAR: RRR. S1, S2 no S4. Without murmur ABDOMEN: Protuberant, tender to palpation periumbilical region. No rigidity. Hypoactive bowel sounds are appreciated MUSCULOSKELETAL: Distal pulses 2+. Left lower extremity fasciotomy site covered with Sandeep wrap. Medial aspect is sutured. Right side is opened without bleeding Left foot is cool NEUROLOGICAL: Positive corneal reflex. Positive gag. Withdraws in both upper and LEs to noxious stimuli. Opens eyes but not following commands Urinary Catheter: Yes Assessment to: Continue Russell insert reason: Pelvic Fractures Vascular Central Line Catheter: No Assessment to: Continue Date of Insertion: Jul 11, 2016 Line: Central Venous Catheter Side: Left Location: Internal, Jugular A/P Assessment and Plan Neuro/Psych: Left cerebellar lacunar infarct Right vertebral/distal left MCA and mid right MARGARINE CHURN OPERATOR stenosis Severe Agitated Delirium Alcohol Withdrawal - up to 15 beers daily Risk for spinal cord hypoperfusion Alcohol abuse History of polysubstance abuse including crack cocaine Lumbar drain placement - removed 07/08 Insomnia Propofol at 20 mcg/kg/m and fentanyl at 100 mg an hour for sedation/analgesia while intubated Discontinue fentanyl drip in light of active BM -- Goal RASS -2 --Daily sedation vacation On melatonin 5 mg at night as needed for insomnia Daily thiamine 100 mg daily for EtOH use MRI brain 07/10 revealed left cerebellar cystic diffusion region with small punctate areas in the suarez radiata likely embolic. Possible amyloid. MRA head/neck revealed right vertebral 80% short segment stenosis, distal left MCA and mid right MARGARINE CHURN OPERATOR stenosis EEG 07/10 revealed no seizure activity Delirium/Withdraw regimen: --Tizanidine 2mg po BID for pain adjuvant and to help with delirium --Seroquel 25 mg twice a day for delirium/weaning --Haldol 5mg iv q4h prn for breakthrough agitation. --Valium 5mg po q8hr for etoh withdraw, start slow taper over through 07/15 --Ativan 1mg iv q15min prn for withdraw symptoms --continue to avoid Precedex for now given recent junctional bradycardia, NSTEMI , and need for continued spinal cord protection with goal systolic blood pressure of 140 to 160 recommended per vascular surgery. -- Okayed with Dr. Long for aspirin 324 mg daily Respiratory: Acute hypoxic and hypercarbic respiratory failure -- PRVC 18/550/0.8/5/35 Vent bundle Bronchodilator therapy every 6 hours and albuterol every 2 hours when needed Head of bed 30 07/12 SAT/SBT approximately 3 hours.. Yesterday minimal due to multiple scans performed Wean FiO2 for goal SPO2 greater than 92% Follow-up a.m. chest x-ray showed small pleural effusions bilaterally/ essentially stable chest x-ray Noted possibly will need bilateral chest tubes if unable to successfully wean. Possible tracheostomy Noted approximately 2 cm of pleural fluid bilaterally on CT abdomen pelvis Cardiovascular: Postop day #10 T4 with left lower x-ray fasciotomy secondary to type B aortic dissection with renal/visceral and left lower extreme L perfusion Thoracic endovascular stent with left lower extremity fasciotomy/ compartments with [address] Long Acute type B dissection- secured Type II NSTEMI- Demand Ischemia- resolving Junction bradycardia- resolved. Lactic Acidosis- resolved. Goal SBP > 120 for spinal cord protection -- troponin downtrending. 6.81 -- elevated troponins likely combination of demand ischemia and poor renal clearance -- Cardiology: Dr. Mondragon following. plan for conservative management with myocardial perfusion scan when stable. -- 2d echo: EF 55%, no RWMA. 2-D echo 07/08 repeat EF 60-65%. Mild MR. At [facility] dilated. RENO 49 mmHg --Cardiac output currently is 3.8. SVV is 13 As needed labetalol/clonidine for systolic blood pressure greater than 160 --Use norepinephrine to maintain systolic blood pressure greater than 120 Renal: Acute kidney injury Acute Tubular Necrosis Right and left nephrolithiasis Likely secondary to hypoperfusion of the kidney from dissection, ATN -- FENa 07/07 1.2% consistent with ATN. Urine eos negative. Urine urea ordered -- order renal ultrasound with doppler. Revealed patent renal arteries bilaterally. Tiny 7 mm right renal calculus and 1.5 cm left renal cyst. -- Strict I/Os Russell placement to be maintained --nephrology consult 07/08 appreciated. No indication for dialysis at this point Avoid nephrotoxins drugs BUN/creatinine. Stabilize. FEN/GI: Colonic ileus Acute protein calorie malnutrition- mild Non-anion gap metabolic acidosis- resolved. Hyperphosphatemia Hyper-magnesium Hyponatremia History of peptic ulcer disease Hepatitis C -from IV drug use Elevated AST TF: Nepro at goal 40 cc an hour --nutrition consult. Daily BMP --Currently on PhosLo 2668 mg 3 times a day for hyperphosphatemia Protonix for GI prophylaxis. Stephie-Colace twice a day for bowel regimen. MiraLAX twice a day lactulose 4 times daily. KUB revealed 8 cm transverse colon ileus. Positive results with sepsis enema yesterday. CT abdomen/those revealed wall thickening or gallbladder. 2 right midpole no obstructing kidney stones, left circumflex continues on, to semi-bilateral pleural effusions and large amount stool left colon. Heme/ID: Leukocytosislikely reactive Acute Blood Loss Anemia Thrombocytopenia Daily CBC No infectious etiology suspected this time Daily coags --thrombocytopenia is likely multifactorial from liver disease, consumptive from critical illness and dissection. Blood cultures/sputum/urine ordered 07/11 no growth to date Endocrine: Hyperglycemia of critical illness -- SSI, medium scale, every 6 hours Prophylaxis: GI Prophylaxis Protonix 40 mg IV every 24 DVT Prophylaxis -- SCDs/heparin The patient may receive heparin subcutaneous every 12. Patient may additionally receive aspirin, but not Plavix. Lines: 07/13 -radial arterial line --07/04-07/11 right IJ cortis -- Left IJ CVL 07/11 present Critical Care: The total critical care time was 35 minutes. Time to perform other separately billable procedures was not included in the critical care time. Chris Helton MD Jul 14, 2016 06:53
[2016-07-14] MEDS: PANTOPRAZOLE SODIUM 40 MG VIAL IV SCH (08:46)
[2016-07-14] MEDS: SODIUM CHLORIDE 0.9% FLUSH 10 ML FLUSH IVF SCH (08:46)
[2016-07-14] MEDS: LACTULOSE SYRUP 20 GM/30 ML CUP PO SCH ×4 (08:46→19:59)
[2016-07-14] MEDS: DOCUSATE SODIUM 50 MG/SENNA 8.6 MG TAB PO SCH ×2 (08:47→19:59)
[2016-07-14] MEDS: POLYETHYLENE GLYCOL 17 GM PKG OG-TUBE SCH ×2 (08:47→19:59)
[2016-07-14] MEDS: CALCIUM ACETATE 667 MG CAP PO SCH ×3 (08:47→18:01)
[2016-07-14] MEDS: THIAMINE HCL 100 MG TAB PO SCH (08:47)
[2016-07-14] MEDS: QUEtiapine FUMARATE 25 MG TAB PO SCH ×2 (08:48→19:59)
[2016-07-14] MEDS: MULTIVITAMIN TAB PO SCH (08:48)
[2016-07-14] MEDS: ASPIRIN 81 MG CHEW TAB CHEW SCH (08:48)
[2016-07-14] MEDS: CHLORHEXIDINE 0.12% (ORAL KIT) 15 ML CUP MT SCH ×2 (08:48→19:59)
[2016-07-14] MEDS: DIAZEPAM 10 MG TAB PO SCH (08:48)
[2016-07-14] MEDS: cloNIDine HCL 0.1 MG TAB PO PRN ×2 (08:48→21:58)
[2016-07-14] MEDS: LABETALOL HCL 100 MG/20 ML VIAL IV PUSH PRN (09:05)
--- NOTE | 2016-07-14 10:19 | PD.VS.PN ---
Subjective POD #: 10 Procedure(s): TEVAR, L LE fasciotomies for acute TBAD with visceral/renal/LLE malperfusion Subjective/Hospital Course NGT output feculent; KUB shows dilated loops; TF held. + bowel movement yesterday with enema CT (NC) showed inflammation of gallbladder. Objective Neuro: MENSAH, responds and following commands Pulmonary: weaning vent, good sats Cardiac: HTN when sedation off FEN/GI: TF held; K 5.0 : BUN/cr 124/5.8 but good UOP ID Antibiotics(date/duration): WBC 16, stable no antibiotics ID Cultures: NGTD Heme: Hct 24 plt 232 Vascular: + signals LE Laboratory Laboratory Tests Test 07/13/16 07/14/16 07/14/16 10:20 05:15 08:10 White Blood Count 18.9 16.4 Red Blood Count 2.78 2.54 Hemoglobin 8.6 7.8 Hematocrit 26.1 23.6 Mean Corpuscular Volume 93.7 93.2 Mean Corpuscular Hemoglobin 31.0 30.9 Mean Corpuscular Hemoglobin 33.1 33.2 Concent Red Cell Distribution Width 14.0 13.7 Platelet Count 167 232 Mean Platelet Volume 9.9 9.1 Neutrophils (%) (Auto) 84.5 82.4 Lymphocytes (%) (Auto) 2.9 3.7 Monocytes (%) (Auto) 10.2 10.9 Eosinophils (%) (Auto) 2.3 2.2 Basophils (%) (Auto) 0.1 0.8 Neutrophils # (Auto) 15.9 13.6 Lymphocytes # (Auto) 0.6 0.6 Monocytes # (Auto) 1.9 1.8 Eosinophils # (Auto) 0.4 0.4 Basophils # (Auto) 0.0 0.1 CBC Comment AUTO DIFF AUTO DIFF Differential Comment AUTO DIFF FINAL DIFF CONFIRMED MANUAL Platelet Estimate NORMAL NORMAL Platelet Morphology Comment NORMAL NORMAL Red Cell Morphology Comment NORMAL NORMAL Sodium Level 135 135 Potassium Level 5.3 5.0 Chloride Level 100 99 Carbon Dioxide Level 24.6 23.2 Anion Gap 10 13 Blood Urea Nitrogen 130 124 Creatinine 5.80 5.84 Estimat Glomerular Filtration 10 10 Rate Random Glucose 106 89 Calcium Level 8.5 8.0 Phosphorus Level 7.0 7.0 Magnesium Level 3.6 3.7 Total Bilirubin 1.3 Aspartate Amino Transf 60 (AST/SGOT) Alanine Aminotransferase 29 (ALT/SGPT) Alkaline Phosphatase 147 Total Protein 5.9 Albumin 2.1 1.9 Differential Total Cells 100 Counted Neutrophils % (Manual) 81 Band Neutrophils % 2 Lymphocytes % 2 Monocytes % 11 Eosinophils % 4 Neutrophils # (Manual) 13.6 Lactic Acid Level 0.5 Date/Time Procedure Status Source Growth 07/11/16 10:05 Aerobic Blood Culture - Preliminary Resulted Blood Peripheral NO GROWTH IN 2 DAYS 07/11/16 10:05 Anaerobic Blood Culture - Preliminary Resulted Blood Peripheral NO GROWTH IN 2 DAYS 07/11/16 09:05 Urine Culture - Final Complete Urine Catheterized Urine NO GROWTH IN 48 HOURS. 07/11/16 09:05 Gram Stain - Final Complete Sputum Endotracheal 07/11/16 09:05 Sputum Culture - Final Complete Sputum Endotracheal HEAVY GROWTH NORMAL RESPIRATORY [facility] Last 48 hours Impressions Chest X-Ray 07/14/16 0600 Signed Impressions: Service Date/Time: Thursday, July 14, 2016 03:11 - CONCLUSION: Stable chest x-ray with bibasilar opacities, left greater than right. Aleksey Turner MD Abdomen X-Ray 07/14/16 0600 Signed Impressions: Service Date/Time: Thursday, July 14, 2016 03:14 - CONCLUSION: There is a paucity of bowel with no findings to suggest obstruction. Aleksey Turner MD Chest X-Ray 07/13/16 0000 Signed Impressions: Service Date/Time: Wednesday, July 13, 2016 10:32 - CONCLUSION: Increasing bilateral pleural effusions. Donis Hernandez MD FACR Abdomen/Pelvis CT 07/13/16 0000 Signed Impressions: Service Date/Time: Wednesday, July 13, 2016 17:29 - CONCLUSION: 1. Abnormal appearance of the gallbladder with wall thickening and possible pericholecystic fluid. No calcified stones. Recommend hepatobiliary tract scan to evaluate for acalculus cholecystitis. 2. Bilateral lower lung consolidation and bilateral pleural effusions. 3. Moderate amount of stool in the left colon. 4. Bilateral nonobstructing renal stones. Joe De Leon MD Abdomen X-Ray 07/13/16 0000 Signed Impressions: Service Date/Time: Wednesday, July 13, 2016 10:34 - CONCLUSION: Nonspecific dilatation of the colon. Donis Hernandez MD FACR Abdomen X-Ray 07/12/16 2637 Signed Impressions: Service Date/Time: Tuesday, July 12, 2016 16:54 - CONCLUSION: Progression of the colonic dilatation. Donis Hernandez MD FACR Assessment and Plan Plan POD#8 s/p TEVAR and L LE fasciotomy Expected ATN - maybe resolving; weaning vent; new ileus that I don't think is colonic ischemia (plt ok, LA ok) but may be due to a/calculous cholecystitis 1. Neuro: MENSAH; CVA on MRI; will continue to lighten sedation; following commands. 2. Resp: wean vent as tolerated; may req pleural drain if effusions affecting ability to come off vent; may also req trach 3. CV: can liberalize Goal SBP to 120 for SCI protection 4. FEN/GI: TF held; ileus. RUQ U/S ordered - if calculous or acalculous cholecystitis, will ask IR to place cholecystostomy tube 5. : ATN; will avoid nephrotoxic meds, exogenous K. Renal duplex looked great. No need for HD. Recheck creatinine tomorrow. 6. ID: no issues 7. Heme: Hct stable (24). 8. endocrine: SSI as per ICU team 9. continue pulse checks - perfusion to LLE restored with TEVAR 10. ALTERNATIVE CODE: NO CHEST COMPRESSIONS and NO CARDIOVERSION. Otherwise, continue all current levels of care. Hamlet Long MD FACS receiving inspector [facility] at [facility] [phone] Hamlet Long MD Jul 14, 2016 10:18
--- NOTE | 2016-07-14 11:08 | HHI.GIFU ---
Subjective Remarks 60 yo male lying in bed in no apparent distress. Able to arouse on vent. Moves all 4 extremities, but not on command. No significant BM overnight. (Fabi Lei) Objective Vitals I&O Vital Signs Date Time Temp Pulse Resp B/P Pulse Ox O2 Delivery O2 Flow Rate FiO2 07/14/16 09:27 98 35 07/14/16 06:00 62 07/14/16 04:23 95 35 07/14/16 04:00 99.3 62 18 104/55 95 07/14/16 04:00 61 07/14/16 04:00 07/14/16 04:00 35 07/14/16 02:00 07/14/16 02:00 56 07/14/16 00:00 07/14/16 00:00 35 07/14/16 00:00 53 07/14/16 00:00 99.3 53 18 133/48 97 07/13/16 23:16 96 35 07/13/16 22:00 63 07/13/16 22:00 07/13/16 20:00 99.1 67 18 110/61 95 07/13/16 20:00 07/13/16 20:00 66 07/13/16 20:00 35 07/13/16 19:49 96 35 07/13/16 19:00 96 Mechanical Ventilator 35 07/13/16 18:00 65 07/13/16 18:00 147/50 07/13/16 17:43 95 100 07/13/16 17:02 93 35 07/13/16 16:00 35 07/13/16 16:00 135/41 07/13/16 16:00 97.9 67 25 135/41 69 07/13/16 16:00 67 07/13/16 14:00 114/16 07/13/16 14:00 67 07/13/16 12:00 133/39 07/13/16 12:00 35 07/13/16 12:00 99.3 68 17 133/39 95 07/13/16 12:00 68 I/O 07/13/16 07/13/16 07/13/16 07/14/16 07/14/16 07/14/16 07:00 15:00 23:00 07:00 15:00 23:00 Intake Total 960 ml 1550 ml 1025 ml 900 ml Output Total 620 ml 890 ml 600 ml 525 ml Balance 340 ml 660 ml 425 ml 375 ml Intake Oral 0 ml 0 ml 0 ml IV Total 960 ml 890 ml 1025 ml 900 ml Tube Feeding 0 ml Other 660 ml Output Urine Total 300 ml 375 ml 400 ml 350 ml Stool Total 20 ml 40 ml 0 ml 0 ml Gastric Drainage Total 300 ml 475 ml 200 ml 175 ml Laboratory Laboratory Tests Test 07/14/16 07/14/16 05:15 08:10 White Blood Count 16.4 Red Blood Count 2.54 Hemoglobin 7.8 Hematocrit 23.6 Mean Corpuscular Volume 93.2 Mean Corpuscular Hemoglobin 30.9 Mean Corpuscular Hemoglobin 33.2 Concent Red Cell Distribution Width 13.7 Platelet Count 232 Mean Platelet Volume 9.1 Neutrophils (%) (Auto) 82.4 Lymphocytes (%) (Auto) 3.7 Monocytes (%) (Auto) 10.9 Eosinophils (%) (Auto) 2.2 Basophils (%) (Auto) 0.8 Neutrophils # (Auto) 13.6 Lymphocytes # (Auto) 0.6 Monocytes # (Auto) 1.8 Eosinophils # (Auto) 0.4 Basophils # (Auto) 0.1 CBC Comment AUTO DIFF Differential Total Cells 100 Counted Neutrophils % (Manual) 81 Band Neutrophils % 2 Lymphocytes % 2 Monocytes % 11 Eosinophils % 4 Neutrophils # (Manual) 13.6 Differential Comment FINAL DIFF MANUAL Platelet Estimate NORMAL Platelet Morphology Comment NORMAL Red Cell Morphology Comment NORMAL Sodium Level 135 Potassium Level 5.0 Chloride Level 99 Carbon Dioxide Level 23.2 Anion Gap 13 Blood Urea Nitrogen 124 Creatinine 5.84 Estimat Glomerular Filtration 10 Rate Random Glucose 89 Calcium Level 8.0 Phosphorus Level 7.0 Albumin 1.9 Lactic Acid Level 0.5 Magnesium Level 3.7 Date/Time Procedure Status Source Growth 07/11/16 10:05 Aerobic Blood Culture - Preliminary Resulted Blood Peripheral NO GROWTH IN 2 DAYS 07/11/16 10:05 Anaerobic Blood Culture - Preliminary Resulted Blood Peripheral NO GROWTH IN 2 DAYS 07/11/16 09:05 Urine Culture - Final Complete Urine Catheterized Urine NO GROWTH IN 48 HOURS. 07/11/16 09:05 Gram Stain - Final Complete Sputum Endotracheal 07/11/16 09:05 Sputum Culture - Final Complete Sputum Endotracheal HEAVY GROWTH NORMAL RESPIRATORY [facility]IN[facility] Imaging Last Impressions Chest X-Ray 07/14/16 0600 Signed Impressions: Service Date/Time: Thursday, July 14, 2016 03:11 - CONCLUSION: Stable chest x-ray with bibasilar opacities, left greater than right. Aleksey Turner MD Abdomen X-Ray 07/14/16 0600 Signed Impressions: Service Date/Time: Thursday, July 14, 2016 03:14 - CONCLUSION: There is a paucity of bowel with no findings to suggest obstruction. Aleksey Turner MD Abdomen/Pelvis CT 07/13/16 0000 Signed Impressions: Service Date/Time: Wednesday, July 13, 2016 17:29 - CONCLUSION: 1. Abnormal appearance of the gallbladder with wall thickening and possible pericholecystic fluid. No calcified stones. Recommend hepatobiliary tract scan to evaluate for acalculus cholecystitis. 2. Bilateral lower lung consolidation and bilateral pleural effusions. 3. Moderate amount of stool in the left colon. 4. Bilateral nonobstructing renal stones. Joe De Leon MD Neck Magnetic Resonance Angiography 07/11/16 0000 Signed Impressions: Service Date/Time: June 14:29 - CONCLUSION: 1. No evidence of carotid stenosis. 2. Short segment high-grade stenosis involving the mid right vertebral artery greater than 80 with a patent left vertebral artery Abhijeet Salinas MD Head Magnetic Resonance Angiography 07/11/16 0000 Signed Impressions: Service Date/Time: June 14:29 - CONCLUSION: 1. Evidence of atherosclerotic disease with focal distal left MCA branch stenosis and focal mid right INVESTIGATIONS CHIEF stenosis. 2. No proximal high grade stenosis or aneurysm. Bladimir Gasca MD Brain MRI 07/10/16 0000 Signed Impressions: Service Date/Time: Sunday, July 10, 2016 15:03 - CONCLUSION: 1. Small punctate infarcts involving the left cerebellar hemisphere and deep white matter bilaterally in this patient with a background of amyloid angiopathy. No acute hemorrhage is seen. Abhijeet Salinas MD Renal Ultrasound 07/08/16 0000 Signed Impressions: Service Date/Time: Friday, July 08, 2016 17:16 - CONCLUSION: 1. Resistive indices could not be obtained on the right side into the patient's body habitus and shadowing bowel gas. Left renal artery resistive indices are within normal limits. 2. No significant abdominal aortic aneurysm identified status post repair. 3. Probable 7 mm nonobstructing midpole right renal calculus. 4. Tiny left lower pole cyst measuring 1.5 cm. Hamlet Vinson MD Aorta CTA 07/04/16 0000 Signed Impressions: Service Date/Time: June 19:53 - CONCLUSION: 1. Extensive aortic dissection extending from the proximal transverse aorta just distal to the origin of the left subclavian artery. Dissection extends distally through both superficial femoral arteries. 2. Occlusion of the right renal artery with absent perfusion of the right kidney. Dissection of the left renal artery with absent perfusion of the anterior left kidney. 3. 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 4. Occlusion of left external iliac artery and right internal iliac artery. 5. ET tube in satisfactory position. Dependent consolidation in both lungs. Probable mild liver cirrhosis. No obstruction or free fluid. Russell catheter in decompressed bladder. See above discussion. Rodriguez Jeff MD Physical Exam HEENT: PERRLA; normocephalic; atraumatic; no jaundice. NECK: Neck is supple, L IJ CDI, orotracheally intubated CHEST: CTA CARDIAC: RRR with no murmur gallop or rubs. ABDOMEN: Protuberant, Diffuse tenderness on palpation. Bowel sounds hypoactive. EXTREMITIES: No edema. ASA wrap in place on LLE SKIN: Normal; no rash; no jaundice. CONFIGURATION CONSULTANT: Open eyes. Does not follow commands (Fabi Lei) Assessment and Plan Plan ASSESSMENT: - Colonic Ileus. He is on a bowel regimen consisting of glycerin suppositories , lactulose, miralax, pericolace and he received soap suds enemas 07/12 with BM x 3. He is passing liquid stool, but continues to have abdominal distention and is quite tender on exam. No significant bowel movement overnight. Colonoscopy planned for today. Abdomen/Pelvis CT 07/13/16 1. Abnormal appearance of the gallbladder with wall thickening and possible pericholecystic fluid. No calcified stones. Recommend hepatobiliary tract scan to evaluate for a calculus cholecystitis. 2. Bilateral lower lung consolidation and bilateral pleural effusions. 3. Moderate amount of stool in the left colon. 4. Bilateral nonobstructing renal stones. Abdomen X-Ray 07/14/16 There is a paucity of bowel with no findings to suggest obstruction He is receiving fentanyl. Of note, he as bradycardia at times and therefore would avoid neostigmine. - Elevated LFTs. Pt has hx of cirrhosis/HCV according to chart. LFTs have been improving. AST 60, ALT 29 - Acute type B aortic dissection, S/P thoracic endovascular stent, intravascular ultrasound of the aorta, and left lower extremity fasciotomies (four compartment, two incisions) (07/04/16) with Dr. Long. - Small embolic strokes with small chronic microscopic hemorrhages in the brain , possible amyloid angiopathy per neurology. - Acute respiratory failure, Vent per [facility]. - Type II STEMI (demand ischemia) - Acute kidney injury with acute tubular necrosis and electrolyte abnormalities. Renal following. - Protein calorie malnutrition. Machine Stone Polisher recommends Nepro, Rec goal rate @ 40ml/hr. ? PEG tube in future. - Anemia. 8.6/26.1. - Thrombocytopenia. IMPROVED. - Leukocytosis, persistent. WBC 16.4 Afebrile. BCx no growth 2 days, urine no growth 48 hours. Sputum with heavy growth of normal malinda. PLAN: - Colonoscopy today - NPO today - Cont. bowel regimen- lactulose, pericolace, miralax - Supportive care - Further recommendations to follow based on results of above Patient seen and examined by Dr. Simon and myself and this note is written on his behalf (Fabi Lei) Physician Comments Seen and examined with PRODUCTION MAINTENANCE TECHNICIAN, CT suggests cholecystitis. HIDA scan ordered. Consider surgical consult. Colonoscopy today to R/O ischemia (Rachel Simon MD ) Fbai Lei Jul 14, 2016 11:08 Rachel Simon MD Jul 14, 2016 12:10
[2016-07-14] MEDS ORDERED: PROPOFOL 200 MG/20 ML AMP IV ONE (12:27)
--- NOTE | 2016-07-14 12:29 | RADRPT ---
EXAM DATE/TIME: 07/14/2016 11:36 [facility] COMPARISON: CTA THORACIC ABDOMINAL AORTA W 3D RECON, July 04, 2016, 19:53. CT ABDOMEN & PELVIS W/O CONTRAST, Ap 2016, 17:29. INDICATIONS : CT cholecystitis. MEDICAL HISTORY : Hypertension. Chest pain. Dyspnea. Ulcer. Bipolar. Depression. Previous suicide attempt. Substanc e use. SURGICAL HISTORY : Oral surgery. ENCOUNTER: Initial ACUITY: 1 day PAIN SCORE: Nonresponsive. LOCATION: Right upper quadrant MEASUREMENTS: LIVER: 19.6 cm length COMMON DUCT: 5 mm RIGHT KIDNEY: 11.1 x 5.0 x 5.3 cm FINDINGS: There is a small right pleural effusion. There is no intrahepatic biliary duct dilatation. There i s marked thickening of the gallbladder wall with minimal pericholecystic fluid. Trace fluid is seen adjacent to the tip of the liver. In spite of the appearance of the gallbladder the patient is not very tender over the gallbladder. T he common duct measures 5 mm. CONCLUSION: Abnormal gallbladder as described above. Cholecystitis would be consideration. The patient is only minimally tender around the gallbladder. Donis Hernandez MD FACR on July 14, 2016 at 12:24 Board Certified Radiologist. This report was verified electronically.
--- NOTE | 2016-07-14 12:38 | GIPROC ---
[facility] [address] [facility]. [facility], [address] COLONOSCOPY PROCEDURE REPORT EXAM DATE: 07/14/2016 PATIENT NAME: Hero Trujillo MR #: [id number] BIRTHDATE: 1955 ENDOSCOPIST: Rachel Simon MD ORDER #: [id number] CHILD NURSE: Rica Gutierrez and Lynne Barajas STATUS: inpatient INDICATIONS: The patient is a 60 yr old male here for a colonoscopy due to abdominal pain, constipation, and an abnormal imaging results PROCEDURE PERFORMED: Colonoscopy with biopsy Colonoscopy with decompression MEDICATIONS: Per Anesthesia and None. PREP QUALITY: The Casper Bowel Prep Score was Right colon 0, Mid colon 1, and Left colon 1. Total = 2. ESTIMATED BLOOD LOSS: None CONSENT: The patient understands the risks and benefits of the procedure and understands that these risks include, but are not limited to: sedation, allergic reaction, infection, perforation and/or bleeding. Alternative means of evaluation and treatment include, among others: physical exam, x-rays, and/or surgical intervention. The patient elects to proceed with this endoscopic procedure. medical equipment was checked for proper function. Hand hygiene and appropriate measures for infection prevention was taken. After the risks, benefits and alternatives of the procedure were thoroughly explained, Informed consent was verified, confirmed and timeout was successfully executed by the treatment team. A digital exam revealed external hemorrhoids The Pentax [id number] endoscope was introduced through the anus and advanced to the cecum, which was identified by both the appendix and ileocecal valve. The instrument was then slowly withdrawn as the colon was fully examined. COLON FINDINGS: Full of stools, scope advanced to mid transverse colon. Full of stool. Decompressed. A circumferential patch of abnormal mucosa was found in the sigmoid colon. The mucosa was erythematous, friable, ulcerated and had granularity. A biopsy was performed using cold forceps. Retroflexed views revealed internal hemorrhoids and Retroflexed views revealed medium internal hemorrhoids The scope was then completely withdrawn from the patient and the procedure terminated. ADVERSE EVENTS: There were no complications. IMPRESSIONS: 1. Full of stools, scope advanced to mid transverse colon. Full of stool. Decompressed 2. Circumferential abnormal mucosa was found in the sigmoid colon; The mucosa was erythematous, friable, ulcerated and had granularity; biopsy was performed using cold forceps 3. Retroflexed views revealed internal hemorrhoids 4. Retroflexed views revealed medium internal hemorrhoids 5. Revealed external hemorrhoids RECOMMENDATIONS: Juan crain RECALL: Colonoscopy as needed Rachel Simon MD eSigned: Rachel Simon MD 07/14/2016 12:38 PM cc:
[2016-07-14] MEDS ORDERED: MIDAZOLAM HCL 2 MG/2 ML VIAL ONE (12:41)
[2016-07-14] MEDS: PROPOFOL 1000 MG/100 ML INJ 100 ML IV SCH ×2 (14:18→19:59)
[2016-07-14] MEDS ORDERED: PEG (High)/E-LYTE SOLN 4000 ML BTL NG ONE (15:30)
--- NOTE | 2016-07-14 15:43 | HHI.NPPN ---
Subjective History of Present Illness This patient is a 60-year-old male apparently with a history of previous alcohol and crack usage also has a history of hepatitis C, coronary disease and hypertension as well as medical noncompliance. Patient was admitted with a type B aortic dissection. CTA thoracic aorta and abdominal aorta performed July 04, 2016 revealed occluded right renal artery as well as perfusion only to the left posterior aspect of the left kidney. Patient status post emergent TAVA, left lower extremity fasciectomy mention of previous nonperfusion to that extremity. Patient's creatinine level was within normal range from previous records prior to this admission however patient had evidence of renal sufficiency on presentation and his creatinine level has continued to rise to a level of 4.75 Date of Consultation with marginal urine output. Interval History The patient remains intubated and nonverbal. Review of Systems General General Remarks Unobtainable because of clinical status. Objective Data Data 07/13/16 07/14/16 19:00 07:00 Intake Total 1550 ml 1925 ml Output Total 890 ml 1125 ml Balance 660 ml 800 ml Intake Oral 0 ml IV Total 890 ml 1925 ml Tube Feeding 0 ml Other 660 ml Output Urine Total 375 ml 750 ml Stool Total 40 ml 0 ml Gastric Drainage Total 475 ml 375 ml Vital Signs Date Time Temp Pulse Resp B/P Pulse Ox O2 Delivery O2 Flow Rate FiO2 07/14/16 12:05 96 100 07/14/16 10:00 151/47 07/14/16 10:00 66 07/14/16 09:30 35 07/14/16 09:27 98 35 07/14/16 08:00 166/55 07/14/16 08:00 35 07/14/16 08:00 64 07/14/16 08:00 100.2 99 18 166/55 99 07/14/16 07:00 99 Mechanical Ventilator 35 07/14/16 06:00 62 07/14/16 04:23 95 35 07/14/16 04:00 99.3 62 18 104/55 95 07/14/16 04:00 61 07/14/16 04:00 07/14/16 04:00 35 07/14/16 02:00 07/14/16 02:00 56 07/14/16 00:00 07/14/16 00:00 35 07/14/16 00:00 53 07/14/16 00:00 99.3 53 18 133/48 97 07/13/16 23:16 96 35 07/13/16 22:00 63 07/13/16 22:00 07/13/16 20:00 99.1 67 18 110/61 95 07/13/16 20:00 07/13/16 20:00 66 07/13/16 20:00 35 07/13/16 19:49 96 35 07/13/16 19:00 96 Mechanical Ventilator 35 07/13/16 18:00 65 07/13/16 18:00 147/50 07/13/16 17:43 95 100 07/13/16 17:02 93 35 07/13/16 16:00 35 07/13/16 16:00 135/41 07/13/16 16:00 97.9 67 25 135/41 69 07/13/16 16:00 67 -: 07/14/16 0515 07/14/16 0515 Medication Review Current Medications Esmolol HCl/ Sodium Chloride 250 ml @ 0 mls/hr TITRATE IV ; Start 07/04/16 at 19 :15; Stop 07/05/16 at 12:28; Status DC Nicardipine HCl/ Sodium Chloride (Cardene Inj/NS 250 ml Inj) 250 ml @ 0 mls/hr TITRATE IV Last administered on 07/05/16 08:43; Start 07/04/16 at 19:15; Stop 07/05/16 at 12:28; Status DC Labetalol HCl (Trandate Inj) 20 mg Q15M PRN IV SEE COMMENTS; Start 07/04/16 at 19:15; Stop 07/10/16 at 07:50; Status DC Hydralazine HCl (Apresoline Inj) 10 mg Q15M PRN IV SEE COMMENTS Last administered on 07/06/16 14:04; Start 07/04/16 at 19:15; Stop 07/10/16 at 07:50 ; Status DC Metoprolol Tartrate 5 mg 5 mg Q5M PRN IV PUSH SEE COMMENTS Last administered on 07/07/16 12:54; Start 07/04/16 at 19:30; Stop 07/10/16 at 07:50; Status DC Propofol 100 ml @ 0 mls/hr TITRATE IV Last administered on 07/06/16 08:32; Start 07/04/16 at 19:30; Stop 07/06/16 at 13:23; Status DC Fentanyl Citrate (fentaNYL DRIP) 250 ml @ 0 mls/hr TITRATE IV Last administered on 07/06/16 07:01; Start 07/04/16 at 19:30; Stop 07/06/16 at 13:23 ; Status DC Epinephrine HCl (EPINEPHrine (1:10,000) INJ) 1 mg STK-MED ONCE .ROUTE ; Start at 19:34; Stop 07/04/16 at 19:35; Status DC Atropine Sulfate (Atropine Inj) 1 mg STK-MED ONCE .ROUTE ; Start 07/04/16 at 19: 34; Stop 07/04/16 at 19:35; Status DC Lidocaine HCl (Xylocaine 2% Inj) 100 mg STK-MED ONCE .ROUTE ; Start 07/04/16 at 19:34; Stop 07/04/16 at 19:35; Status DC Iohexol (Omnipaque 350 Inj) 100 ml STK-MED ONCE IV Last administered on 19:58; Start 07/04/16 at 19:58; Stop 07/04/16 at 19:59; Status DC Bupivacaine HCl/ Epinephrine Bitart (Sensorcaine-Epinephrine Pf 0.5% Inj) 30 ml STK-MED ONCE .ROUTE ; Start 07/04/16 at 20:21; Stop 07/04/16 at 20:22; Status DC Thrombin (Thrombin Top Soln) 10,000 units STK-MED ONCE .ROUTE ; Start 07/04/16 at 20:21; Stop 07/04/16 at 20:22; Status DC Gelatin (Gelfoam 100 Top) 1 foam STK-MED ONCE .ROUTE ; Start 07/04/16 at 20:21; Stop 07/04/16 at 20:22; Status DC Cefazolin Sodium (Ancef Inj) 2,000 mg STK-MED ONCE .ROUTE Last administered on 07/04/16 22:03; Start 07/04/16 at 20:22; Stop 07/04/16 at 20:23; Status DC Heparin Sodium (Porcine) (Heparin Inj) 60,000 units STK-MED ONCE .ROUTE ; Start 07/04/16 at 20:22; Stop 07/04/16 at 20:23; Status DC Protamine Sulfate (Protamine Sulfate Inj) 100 mg STK-MED ONCE .ROUTE ; Start at 20:22; Stop 07/04/16 at 20:23; Status DC Heparin Sodium (Porcine) 17264 units 20,000 units STK-MED ONCE .ROUTE Last administered on 07/04/16t 22:04; Start 07/04/16 at 20:38; Stop 07/04/16 at 20:39 ; Status DC Methylprednisolone Sodium Succinate/ Sodium Chloride (SoluMEDROL INJ/ NS 250 ml Inj) 290 ml @ 580 mls/hr ONCE ONCE IV ; Start 07/04/16 at 21:30; Stop at 21:59; Status DC Magnesium Oxide 800 mg 800 mg UNSCH PRN PO For Magnesium 1.2 - 1.6 mg/dL; Start 07/04/16 at 22:45; Stop 07/06/16 at 09:16; Status DC Magnesium Sulfate 4 gm/Sodium Chloride 100 ml @ 50 mls/hr UNSCH PRN IV For Magnesium 0.9 - 1.1 mg/dL; Start 07/04/16 at 22:45; Stop 07/06/16 at 09:15; Status DC Magnesium Sulfate 2 gm/Sodium Chloride 100 ml @ 50 mls/hr UNSCH PRN IV For Magnesium 1.2 - 1.6 mg/dL; Start 07/04/16 at 22:45; Stop 07/06/16 at 09:16; Status DC Potassium Chloride 100 ml @ 50 mls/hr Q2H PRN IV For Potassium 2.8 - 3.2 mEq/L ; Start 07/04/16 at 22:45; Stop 07/06/16 at 09:16; Status DC Potassium Chloride 100 ml @ 50 mls/hr Q2H PRN IV For Potassium 3.3 - 3.5 mEq/L ; Start 07/04/16 at 22:45; Stop 07/06/16 at 09:16; Status DC Potassium Chloride 100 ml @ 50 mls/hr Q2H PRN IV For Potassium 2.8 - 3.2 mEq/L ; Start 07/04/16 at 22:45; Stop 07/06/16 at 09:16; Status DC Potassium Chloride (KCl 40 Meq Premix Inj) 100 ml @ 25 mls/hr UNSCH PRN IV For Potassium 3.3 - 3.5 mEq/L Last administered on 07/05/16 08:43; Start at 22:45; Stop 07/06/16 at 09:16; Status DC Potassium Phosphate (K-Phos) 2,000 mg Q4H PRN PO For Phosphorus < 2.5 mg/dL; Start 07/04/16 at 22:45; Stop 07/06/16 at 09:16; Status DC Potassium Phosphate 2000 mg 2,000 mg UNSCH PRN PO/TUBE SEE LABEL COMMENTS; Start 07/04/16 at 22:45; Stop 07/06/16 at 09:16; Status DC Potassium Phosphate 30 mmol/ Sodium Chloride 260 ml @ 42 mls/hr UNSCH PRN IV SEE LABEL COMMENTS; Start 07/04/16 at 22:45; Stop 07/06/16 at 09:16; Status DC Sodium Phosphate/ Sodium Chloride (Sodium Phosphate Inj/NS 250 ml Inj) 250 ml @ 42 mls/hr UNSCH PRN IV For Phosphorus < 2.5 mg/dL; Start 07/04/16 at 22:45; Stop 07/06/16 at 09:16; Status DC Chlorhexidine Gluconate (Peridex 0.12% Liq) 15 ml BID@08,20 MT Last administered on 07/14/16 08:48; Start 07/05/16 at 08:00 Dextrose (D50w (Vial) Inj) 25 ml UNSCH PRN IV PUSH HYPOGLYCEMIA-SEE COMMENTS; Start 07/04/16 at 22:45 Insulin Human Regular 1 1 Q6HR SQ Last administered on 07/09/16 18:00; Start 07/05/16 at 00:00 Thiamine HCl/ Sodium Chloride (Thiamine Inj/NS Inj) 101 ml @ 101 mls/hr Q24H IV Last administered on 07/06/16 01:11; Start 07/05/16 at 02:00; Stop at 02:59; Status DC Thiamine HCl 100 mg 100 mg DAILY PO Last administered on 07/14/16 08:47; Start 07/08/16 at 09:00 Multivitamins/ Thiamine HCl/ Folic Acid/Sodium Chloride (Mvi-12 Inj/ Thiamine Inj/ Folvite Inj/1/2 NS 500 ml Inj) 511.2 ml @ 125 mls/hr ONCE ONCE IV Last administered on 07/05/16 02:05; Start 07/04/16 at 23:00; Stop 07/05/16 at 03:05 ; Status DC Multivitamins (Theragran) 1 tab DAILY PO Last administered on 07/14/16 08:48; Start 07/05/16 at 09:00 Albuterol/ Ipratropium (Duoneb Neb) 1 ampule Q6HR NEB INH Last administered on 07/14/16 09:24; Start 07/05/16 at 04:00 Albuterol/ Ipratropium 1 ampule 1 ampule Q2HR NEB PRN INH WHEEZING; Start 07/04 at 22:45; Stop 07/10/16 at 08:19; Status DC Sodium Chloride (NS 1000 ml Inj) 1,000 ml @ 100 mls/hr Q10H IV ; Start at 23:00; Stop 07/05/16 at 00:42; Status DC Sodium Chloride (NS Flush) 2 ml UNSCH PRN IV FLUSH FLUSH AFTER USING IV ACCESS ; Start 07/04/16 at 22:45 Sodium Chloride (NS Flush) 2 ml BID IV FLUSH Last administered on 07/12/16 09: 59; Start 07/05/16 at 09:00; Stop 07/13/16 at 13:33; Status DC Acetaminophen (Tylenol) 650 mg Q6H PRN PO PAIN 1-10 AND/OR FEVER >101F Last administered on 07/11/16 04:32; Start 07/04/16 at 22:45 Pantoprazole Sodium (Protonix Inj) 40 mg DAILY IV Last administered on 08:46; Start 07/05/16 at 09:00 Ondansetron HCl (Zofran Inj) 4 mg Q6H PRN IV NAUSEA OR VOMITING; Start at 22:45; Stop 07/13/16 at 13:33; Status DC Senna/Docusate Sodium (Stephie-Colace) 2 tab BID PO Last administered on 07/14/16 08:47; Start 07/05/16 at 09:00 Miscellaneous Information 1 [id number] XX ; Start 07/04/16 at 22:45 Chlorhexidine Gluconate (Chlorhexidine 2% Cloth) Taper DAILY@04 TOP Last administered on 07/13/16 04:00; Start 07/05/16 at 04:00; Stop 07/01/17 at 03:59 Chlorhexidine Gluconate 3 pack 3 pack UNSCH PRN TOP HYGIENIC CARE; Start at 22:45 Naloxone HCl/ Dextrose (Narcan Inj/D5W Inj) 250 ml @ 0 mls/hr TITRATE IV Last administered on 07/05/16 03:57; Start 07/04/16 at 23:00; Stop 07/08/16 at 06:18 ; Status DC Albumin Human (Albumin 25% Inj) 25 gm UNSCH X1 PRN IV see below; Start at 23:00; Stop 07/05/16 at 23:00; Status DC Iohexol (Omnipaque 300 Inj) 150 ml STK-MED ONCE OTHER Last administered on 07/04 22:04; Start 07/04/16 at 22:04; Stop 07/04/16 at 23:40; Status DC Fentanyl Citrate (fentaNYL INJ) 250 mcg STK-MED ONCE .ROUTE ; Start 07/05/16 at 00:10; Stop 07/05/16 at 00:11; Status DC Sodium Bicarbonate 50 meq 50 meq STK-MED ONCE .ROUTE ; Start 07/05/16 at 00:36; Stop 07/05/16 at 00:37; Status DC Sodium Bicarbonate/ Dextrose (Sodium Bicarbonate 8.4% Inj/D5W 1000 ml Inj) 1, 150 ml @ 100 mls/hr [id number] IV Last administered on 07/05/16 23:28; Start at 00:45; Stop 07/06/16 at 09:21; Status DC Albumin Human (Albumin 5% Inj) 25 gm ONCE ONCE IV Last administered on 02:44; Start 07/05/16 at 00:45; Stop 07/05/16 at 00:46; Status DC Sodium Bicarbonate (Sodium Bicarbonate 8.4% Inj) 100 meq ONCE ONCE IV PUSH Last administered on 07/05/16 01:15; Start 07/05/16 at 01:15; Stop 07/05/16 at 01:16; Status DC Heparin Sodium (Porcine) 5000 units 5,000 units Q12HR SQ Last administered on 19:18; Start 07/05/16 at 21:00; Stop 07/08/16 at 20:11; Status DC Norepinephrine Bitartrate 250 ml @ As Directed STK-MED ONCE IV ; Start at 17:58; Stop 07/05/16 at 17:59; Status DC Norepinephrine Bitartrate (Levophed-Dextrose Drip) 250 ml @ 0 mls/hr TITRATE IV Last administered on 07/09/16 21:06; Start 07/05/16 at 18:30 Midazolam HCl 2 mg 2 mg Q1H PRN IV PUSH agitation Last administered on 12:07; Start 07/05/16 at 22:30; Stop 07/06/16 at 13:24; Status DC Sodium Chloride 1,000 ml @ 999 mls/hr Q1H1M ONCE IV Last administered on 01:00; Start 07/06/16 at 01:00; Stop 07/06/16 at 02:00; Status DC Sodium Chloride 999 ml @ 0 mls/hr BOLUS ONCE IV Last administered on 04:00; Start 07/06/16 at 04:00; Stop 07/06/16 at 04:01; Status DC Calcium Gluconate/ Sodium Chloride (Calcium Gluconate Inj/NS Inj) 130 ml @ 120 mls/hr ONCE ONCE IV Last administered on 07/06/16 07:00; Start 07/06/16 at 06 :15; Stop 07/06/16 at 07:19; Status DC Haloperidol Lactate (Haldol Inj) 5 mg Q4H PRN IV agitation Last administered on 07/06/16 14:04; Start 07/06/16 at 13:30 Lorazepam (Ativan Inj) 1 mg Q15M PRN IV PUSH severe agitation/withdraw sxs Last administered on 07/06/16 14:05; Start 07/06/16 at 13:30 Melatonin (Melatonin) 5 mg HS PO Last administered on 07/13/16 20:09; Start at 21:00 Nitroglycerin (Nitrostat Sl) 0.3 mg ONCE ONCE SL Last administered on 14:00; Start 07/06/16 at 14:00; Stop 07/06/16 at 14:01; Status DC Nitroglycerin (Nitrostat Sl) 0.4 mg STK-MED ONCE SL ; Start 07/06/16 at 13:43; Stop 07/06/16 at 13:44; Status DC Fentanyl Citrate (fentaNYL INJ) 25 mcg Q30M PRN IV PUSH pain 3-10 or not taking po Last administered on 07/07/16 09:03; Start 07/06/16 at 13:45 Fentanyl Citrate (fentaNYL INJ) 100 mcg STK-MED ONCE .ROUTE ; Start 07/06/16 at 13:57; Stop 07/06/16 at 13:58; Status DC Ziprasidone 10 mg 10 mg ONCE ONCE IM Last administered on 07/06/16 15:00; Start 07/06/16 at 15:00; Stop 07/06/16 at 15:01; Status DC Sodium Chloride (NS 1000 ml Inj) 999 ml @ 0 mls/hr BOLUS ONCE IV Last administered on 07/06/16 22:03; Start 07/06/16 at 22:00; Stop 07/06/16 at 22:01 ; Status DC Etomidate 20 mg 20 mg ONCE ONCE IV PUSH Last administered on 07/06/16 22:54; Start 07/06/16 at 22:45; Stop 07/06/16 at 22:46; Status DC Propofol 100 ml @ 0 mls/hr TITRATE IV Last administered on 07/14/16 14:18; Start 07/06/16 at 22:45 Fentanyl Citrate 250 ml @ 0 mls/hr TITRATE IV Last administered on 07/13/16 10: 43; Start 07/06/16 at 22:45; Stop 07/14/16 at 06:44; Status DC Propofol (Diprivan 1000 Mg/100ml Inj) 100 ml @ As Directed STK-MED ONCE .ROUTE ; Start 07/06/16 at 22:32; Stop 07/06/16 at 22:33; Status DC Etomidate (Amidate Inj) 20 mg STK-MED ONCE .ROUTE ; Start 07/06/16 at 22:33; Stop 07/06/16 at 22:34; Status DC Quetiapine Fumarate (SEROquel) 100 mg Q8HR PO Last administered on 07/10/16 05 :40; Start 07/07/16 at 07:30; Stop 07/10/16 at 08:19; Status DC Tizanidine HCl (Zanaflex) 2 mg Q12HR PO Last administered on 07/09/16 14:00; Start 07/07/16 at 09:00; Stop 07/09/16 at 19:30; Status DC Diazepam (Valium) 5 mg Taper Q24H PO Last administered on 07/14/16 08:48; Start 07/07/16 at 07:30; Stop 07/15/16 at 07:29 Calcium Acetate (Phoslo) 2,668 mg TID PO Last administered on 07/14/16 14:20; Start 07/07/16 at 09:00 Miscellaneous 1 ea 1 ea UNSCH PRN OTHER SEE LABEL COMMENTS; Start 07/07/16 at 07:30 Sodium Chloride (NS 250 ml Inj) 250 ml @ 15 mls/hr ONCE ONCE IV Last administered on 07/08/16 07:11; Start 07/08/16 at 06:30; Stop 07/08/16 at 23:09 ; Status DC Heparin Sodium (Porcine) (Heparin Inj) 5,000 units Q8H SQ ; Start 07/08/16 at 20 :00; Status Cancel Heparin Sodium (Porcine) (Heparin Inj) 5,000 units Q8H SQ Last administered on 07/14/16 14:19; Start 07/08/16 at 20:00 Norepinephrine Bitartrate (Levophed Inj) 4 mg STK-MED ONCE IV ; Start 07/04/16 at 13:18; Stop 07/09/16 at 13:21; Status DC Vecuronium [place] (Norcuron 20 Mg Inj) 20 mg STK-MED ONCE IV ; Start 07/04/16 at 13:18; Stop 07/09/16 at 13:21; Status DC Mannitol (Mannitol Inj) 12.5 gm STK-MED ONCE IV ; Start 07/04/16 at 13:18; Stop 07/09/16 at 13:21; Status DC Ephedrine Sulfate (ePHEDrine/NS 25 MG/5 ML SYR) 25 mg STK-MED ONCE IV ; Start at 13:18; Stop 07/09/16 at 13:21; Status DC Naloxone HCl (Narcan Inj) 0.8 mg STK-MED ONCE IV ; Start 07/04/16 at 13:18; Stop 07/09/16 at 13:21; Status DC Phenylephrine HCl 1000 mcg 1,000 mcg STK-MED ONCE IV ; Start 07/04/16 at 13:18; Stop 07/09/16 at 13:21; Status DC Sodium Chloride 250 ml @ As Directed STK-MED ONCE IV ; Start 07/04/16 at 13:18 ; Stop 07/09/16 at 13:21; Status DC Sodium Chloride 500 ml @ As Directed STK-MED ONCE IV ; Start 07/04/16 at 13:18 ; Stop 07/09/16 at 13:21; Status DC Parenteral Electrolytes 1,000 ml @ As Directed STK-MED ONCE IV ; Start at 13:18; Stop 07/09/16 at 13:21; Status DC Sodium Chloride (NS Inj) 100 ml @ As Directed STK-MED ONCE IV ; Start 07/04/16 at 13:18; Stop 07/09/16 at 13:21; Status DC Tizanidine HCl (Zanaflex) 2 mg Q12H PO Last administered on 07/14/16 14:19; Start 07/10/16 at 02:00 Lactulose (Lactulose Liq) 30 ml QID PO Last administered on 07/10/16 21:00; Start 07/10/16 at 09:00; Stop 07/10/16 at 23:59; Status DC Polyethylene Glycol (Miralax) 17 gm BID OG-TUBE Last administered on 07/14/16 08:47; Start 07/10/16 at 09:00 Glycerin (Glycerin Adult Supp) 2 gm ONCE ONCE RECTAL Last administered on 07/10 08:15; Start 07/10/16 at 08:15; Stop 07/10/16 at 08:37; Status DC Glycerin (Glycerin Adult Supp) 2 gm DAILY PRN RECTAL CONSTIPATION; Start at 08:15; Stop 07/13/16 at 13:33; Status DC Quetiapine Fumarate (SEROquel) 50 mg Q8HR PO Last administered on 07/11/16 05: 09; Start 07/10/16 at 14:00; Stop 07/11/16 at 08:44; Status DC Albuterol Sulfate (Albuterol Neb) 2.5 mg Q2HR NEB PRN NEB dyspnea; Start at 08:30 Artificial Tears (Tears Naturale Opth Soln) 1 drop Q8HR EACH EYE Last administered on 07/14/16 14:20; Start 07/10/16 at 14:00 Lactulose (Lactulose Liq) 30 ml QID PO Last administered on 07/14/16 14:19; Start 07/11/16 at 09:00 Mineral Oil (Mineral Oil Liq) 15 ml ONCE ONCE PO Last administered on 09:13; Start 07/11/16 at 08:00; Stop 07/11/16 at 08:20; Status DC Methylnaltrexone [place] (Relistor Inj) 12 mg ONCE ONCE SQ Last administered on 07/11/16 09:13; Start 07/11/16 at 08:00; Stop 07/11/16 at 08:20; Status DC Quetiapine Fumarate (SEROquel) 50 mg BID PO Last administered on 07/11/16 20: 24; Start 07/11/16 at 21:00; Stop 07/12/16 at 06:43; Status DC Gelatin (Gelfoam 12 Mm/7 Mm Top) 1 foam STK-MED ONCE .ROUTE ; Start 07/11/16 at 11:59; Stop 07/11/16 at 12:00; Status DC Aspirin (Aspirin Supp) 300 mg DAILY RECTAL ; Start 07/11/16 at 18:00; Stop 07/11 at 18:00; Status DC Aspirin (Aspirin Chew) 81 mg DAILY CHEW ; Start 07/11/16 at 18:00; Stop at 18:00; Status DC Sodium Chloride (NS Flush) DAILY IVF Last administered on 07/14/16 08:46; Start 07/12/16 at 09:00 Sodium Chloride (NS Flush) UNSCH PRN IVF SEE PROTOCOL; Start 07/11/16 at 16:45 Aspirin (Aspirin Chew) 324 mg DAILY CHEW Last administered on 07/14/16 08:48; Start 07/11/16 at 17:30 Mineral Oil (Mineral Oil Liq) 15 ml ONCE ONCE PO Last administered on 09:58; Start 07/12/16 at 06:45; Stop 07/12/16 at 06:46; Status DC Methylnaltrexone [place] (Relistor Inj) 6 mg ONCE ONCE SQ Last administered on 07/12/16 12:34; Start 07/12/16 at 07:30; Stop 07/12/16 at 07:31; Status DC Magnesium Citrate (Citroma Liq) 300 ml ONCE ONCE PO Last administered on 10:01; Start 07/12/16 at 06:45; Stop 07/12/16 at 06:46; Status DC Glycerin (Glycerin Adult Supp) 2 gm ONCE ONCE RECTAL ; Start 07/12/16 at 06:45 ; Stop 07/12/16 at 06:46; Status DC Glycerin (Glycerin Adult Supp) 2 gm BID PRN RECTAL CONSTIPATION Last administered on 07/12/16 09:58; Start 07/12/16 at 06:45 Quetiapine Fumarate (SEROquel) 25 mg BID PO Last administered on 07/14/16 08:48 ; Start 07/12/16 at 09:00 Diatrizoate Meglum/ Diatrizoate Sod 18 ml 18 ml ONCE ONCE PO ; Start 07/12/16 at 15:15; Stop 07/12/16 at 15:16; Status DC Sodium Chloride (NS 1000 ml Inj) 1,000 ml @ 100 mls/hr Q10H IV Last administered on 07/14/16 08:49; Start 07/12/16 at 17:00 Labetalol HCl (Trandate Inj) 10 mg Q1HR PRN IV PUSH SBP>160, DBP>90, HR>65 Last administered on 07/14/16 09:05; Start 07/13/16 at 10:00 Clonidine (Catapres) 0.1 mg Q6H PRN PO SBP>170, DBP>90, HR>65 Last administered on 07/14/16 08:48; Start 07/13/16 at 10:00 Metoclopramide HCl (Reglan Inj) 5 mg Q8HR IV PUSH Last administered on 14:20; Start 07/13/16 at 14:00 Methylnaltrexone [place] (Relistor Inj) 12 mg ONCE ONCE SQ Last administered on 07/13/16 15:38; Start 07/13/16 at 12:15; Stop 4/1/17 at 12:16; Status DC Diatrizoate Meglum/ Diatrizoate Sod ( Gastroview Liq) 18 ml ONCE ONCE PO Last administered on 07/13/16t 14:18; Start 07/13/16 at 13:30; Stop 07/13/16 at 13: 31; Status DC Midazolam HCl (Versed Inj) 2 mg STK-MED ONCE .ROUTE ; Start 07/14/16 at 12:41; Stop 07/14/16 at 12:42; Status DC Propofol (Diprivan 200 Mg/20 ml Inj) 130 mg STK-MED ONCE IV ; Start 07/14/16 at 12:27; Stop 07/14/16 at 13:18; Status DC Polyethylene Glycol/ Electrolytes (Colyte Liq) 4,000 ml ONCE ONCE NG ; Start at 15:30; Stop 07/14/16 at 15:31; Status DC Physical Exam General Appearance: No Acute Distress, Comfortable Pulmonary Resp Exam: Clear Bilaterally, Breath Sounds Equal, No Distress Cardiology CV Exam: Regular, Normal Sinus Rhythm Gastrointestinal/Abdomen GI Exam: Soft, Non-Tender Integumentary Skin Exam: Clear, Warm Extremeties Extremities Exam: Moderate Edema (2+ pitting edema lower extremities. 1+. Pitting edema upper extremities.) Assessment/Plan Problem List: (1) Acute kidney insufficiency Plan: Patient most likely has sustained severe ischemic injuries to both kidneys as a result of dissection involving renal arteries. Patient's creatinine level is not improving and his urine output is marginal. Is also developing significant fluid retention. I will order diuretics today however if the volume status does not improve and or azotemia worsened significantly I believe we will have to consider renal replacement therapy. Medications should be adjusted for the patient's estimated GFR if clinically indicated. Avoid agents with significant potential for nephrotoxicity possible including NSAIDs for analgesia, iodine contrast agents if possible. Gadolinium is contraindicated if the GFR is below 30. (2) Hepatitis C Plan: Not playing a role as far as his acute renal failure is concerned in this setting. (3) HTN (hypertension) (4) Hyperphosphatemia Plan: Secondary to renal failure. Noted phosphate binder started. Plan Eufemia Walters MD Jul 14, 2016 15:43
[2016-07-14] MEDS ORDERED: BUMETANIDE INJ 1 MG/4 ML VIAL IV PUSH ONE (15:45)
[2016-07-14 16:46] LABS: INDIRECT BILIRUBIN 0.4 MG/DL (0.0-0.8); TOTAL BILIRUBIN ADULT 1.6 MG/DL (0.2-1.0)
[2016-07-14] MEDS: MELATONIN 5 MG TAB PO SCH (19:59)
[2016-07-14] MEDS: hydrALAZINE HCL 20 MG/ML VIAL IV PRN (23:14)
[2016-07-15] VITALS (18 sets, daily range): BP systolic 131–168; BP diastolic 44–70; PULSE 50–63; RESP 18–21; TEMP 97.7–99.7; O2SAT 95–100
[2016-07-15] MEDS: PROPOFOL 1000 MG/100 ML INJ 100 ML IV SCH ×4 (00:16→18:55)
[2016-07-15] MEDS: RESP: ALBUTEROL 2.5 MG/IPRATROPIUM 0.5 MG NEB (SCH) INH ×4 (03:20→20:05)
[2016-07-15] MEDS: CHLORHEXIDINE GLUCONATE 2 % 1 PACK (2 CLOTHS) TOP SCH (04:00)
[2016-07-15] MEDS: HEPARIN SODIUM - SQ 10,000 UNITS/ML VIAL SQ SCH ×2 (04:00→20:08)
[2016-07-15 04:47] LABS: AUTOMATED NEUTROPHIL # 13.1 TH/MM3 (1.8-7.7); BASOPHIL % 0.1 % (0.0-2.0); EOSINOPHIL # 0.4 TH/MM3 (0-0.4); EOSINOPHIL % 2.5 % (0.0-4.0); LYMPH % 2.4 % (9.0-44.0); LYMPHOCYTE # 0.4 TH/MM3 (1.0-4.8); MEAN CELL VOLUME 92.2 FL (80.0-100.0); MEAN CORPUSCULAR HEMOGLOBIN 31.2 PG (27.0-34.0); MEAN CORPUSCULAR HGB CONC 33.8 % (32.0-36.0); PLATELET COUNT 306 TH/MM3 (150-450); RED BLOOD COUNT 2.71 MIL/MM3 (4.50-5.90); RED CELL DISTRIBUTION WIDTH 13.8 % (11.6-17.2); WHITE BLOOD COUNT 15.8 TH/MM3 (4.0-11.0)
[2016-07-15 04:48] LABS: HEMO FLAGS AUTO DIFF
[2016-07-15 05:08] LABS: PROTHROMBIN TIME - PATIENT 10.8 SEC (9.8-11.6)
[2016-07-15 05:14] LABS: APTT (PATIENT) 31.5 SEC (24.3-30.1)
[2016-07-15 05:15] LABS: ALT (GPT) 27 U/L (12-78); ANION GAP 14 MEQ/L (5-15); AST (GOT) 62 U/L (15-37); BICARBONATE 22.7 MEQ/L (21.0-32.0); BLOOD UREA NITROGEN 115 MG/DL (7-18); CHLORIDE 103 MEQ/L (98-107); GLOMERULAR FILTRATION RATE 10 ML/MIN (>89); MAGNESIUM 3.6 MG/DL (1.5-2.5); POTASSIUM 4.7 MEQ/L (3.5-5.1); SODIUM (NA) 140 MEQ/L (136-145)
[2016-07-15 05:17] LABS: ALKALINE PHOSPHATASE 151 U/L (45-117); TOTAL BILIRUBIN ADULT 1.8 MG/DL (0.2-1.0)
[2016-07-15] MEDS: SODIUM CHLOR 0.9% 1000 ML INJ 1,000 ML IV SCH ×3 (05:19→20:07)
[2016-07-15] MEDS: ARTIFICIAL TEARS OPTH SOLN 15 ML BTL EACH EYE SCH ×3 (05:19→20:08)
[2016-07-15] MEDS: METOCLOPRAMIDE HCL 10 MG/2 ML VIAL IV PUSH SCH ×3 (05:19→20:07)
[2016-07-15] MEDS: INSULIN NovoLIN REGULAR SUPPLEMENTAL SCALE SQ SCH ×4 (05:20→18:00)
--- NOTE | 2016-07-15 06:13 | RADRPT ---
EXAM DATE/TIME: 07/15/2016 04:38 [facility] COMPARISON: CHEST SINGLE AP, July 14, 2016, 3:11. INDICATIONS : Shortness of breath, possible pulmonary disease. MEDICAL HISTORY : Aneurysm, abdominal. Hepatitis C. Cardiovascular disease. Hypertension SURGICAL HISTORY : Abdominal aortic aneurysm repair. ENCOUNTER: Subsequent ACUITY: 1 week PAIN SCORE: Non-responsive. LOCATION: Bilateral chest FINDINGS: A single portable frontal view the chest shows the tip of the endotracheal tube 3 cm proximal to the jessica. A left-sided central line, nasogastric tube, and thoracic stent graft again noted. Bibasilar pulmonary infiltrates are more pronounced. No discernible effusion. Mild cardiomegaly. CONCLUSION: Some worsening of the bilateral pulmonary infiltrates. Joe Appiah Jr., MD on July 15, 2016 at 6:11 Board Certified Radiologist. This report was verified electronically.
--- NOTE | 2016-07-15 06:14 | RADRPT ---
EXAM DATE/TIME: 07/15/2016 04:41 [facility] COMPARISON: ABDOMEN KUB ONLY, July 14, 2016, 3:14. INDICATIONS : Abdominal distention. MEDICAL HISTORY : Aneurysm, abdominal. Hepatitis C. Cerebrovascular disease. Hypertension SURGICAL HISTORY : Abdominal aortic aneurysm repair. ENCOUNTER: Subsequent ACUITY: 1 week PAIN SCORE: Non-responsive. LOCATION: Bilateral chest FINDINGS: Supine view of the abdomen was performed. The abdominal bowel gas pattern is normal. No abnormal ma sses, calcifications, or organomegaly is seen. The osseous structures are unremarkable. Nasogastric tube and descending thoracic stent graft. CONCLUSION: No dilated bowel to suggest an obstruction. Joe Appiah Jr., MD on July 15, 2016 at 6:12 Board Certified Radiologist. This report was verified electronically.
[2016-07-15 07:11] LABS: BANDS 6 % (0-6); BASOPHILS 1 % (0-2); EOSINOPHILS 3 % (0-4); MYELOCYTES 1 % (0-0); NEUTROPHIL # MANUAL DIFF 13.1 TH/MM3 (1.8-7.7); PLATELET ESTIMATE SMEAR NORMAL (NORMAL); POLYS (SEG NEUTROPHILS) 76 % (16-70); WBC DIFF SAMPLE 100
[2016-07-15 07:12] LABS: PLATELET MORPHOLOGY NORMAL (NORMAL); SCAN/DIFF FINAL DIFF MANUAL
--- NOTE | 2016-07-15 08:55 | HHI.CCPN ---
Subjective Remarks/Hospital Course Hospital Course: This is a 60-year-old male who is transferred emergently from outside hospital with per report and acute type B dissection. Apparently the patient told his family member today that he had searing back pain and was taken to the emergency department. A CT of the chest at that time showed a type B dissection. The patient was intubated the outside facility and transferred to [place] for emergent evaluation management. Unfortunately, the patient is unable to provide any additional history at this time. I was at bedside and the patient arrived to the surgical intensive care unit. Dr. Long and I both evaluated the patient and when he arrived he was in a junctional bradycardia with heart rate in the 40s. He had obvious ST depressions in lead II on telemetry. Our initial concern was that we have extended the dissection into the type A dissection. We also did not have any CT of the abdomen and pelvis. On her physical exam, the patient had a cold left foot without pulses. I emergently placed a right radial arterial line, please see separate procedure note for details. We then went emergently to the CT scanner for repeat CT aortogram of the chest abdomen and pelvis to investigate the extent to which the dissection has extended. The CT aortogram demonstrated that this was still a type B dissection with the celiac artery being significantly compressed and possibly comprising flow from the dissection flap. The right kidney appears to be perfused off the false lumen and not the true lumen, and there is no contrast going down the left femoral artery. Patient was then brought back to the intensive care unit. His blood pressure is controlled on nicardipine infusion for goal systolic blood pressure less than 110. A 12-lead EKG at that time was done which demonstrated significant ST depressions in the inferior leads as well as the far lateral leads consistent with subendocardial ischemia. At the request of Dr. Long in anticipation of going emergently to the operative theater, I placed a lumbar drain for spinal protection, please see separate procedure note for details. At that point the patient was taken emergently to the operating room. Critical care medicine is been consulted to evaluate and manage the patient's type B dissection, hemodynamic's, acute hypoxic respiratory failure. 07/05: taken to OR for TEVAR overnight. lactate cleared overnight. uop adequate. Cr elevated to 1.8 this AM. He is on Coreg 50 mg by mouth 07/06: oliguric overnight. Cr rising. however, lactate cleared. other markers of end-organ perfusion better. likely ATN from time of dissection. awake following commands. moving bilateral lower extremities. clear CSF in lumbar drain. on intermittent norepinephrine to maintain spinal perfusion. 07/07: extubated yesterday, followed commands, good pulmonary mechanics. However , after extubation, became acutely delirious- probable combination of etoh withdraw and icu delirium, some pain. mental status waxed and waned throughout the day and ultimately reintubated overnight for worsening waning mental status and hypoxia. post-extubation it has been documented that he continues to move his bilateral lower extremities to painful stimuli and spontaneously. does not follow commands this morning. troponins downtrending. cardiology evaluated the patient yesterday, formal note pending, but per my conversation, plan was for ongoing conservative management as we are doing, and plan for nuc med stress test when stable. 07/08: still moving bilateral LEs spontaneously and w/d to pain. remains intubated with persistent agitation. hypoxia improving. platelets continue to fall, likely a combination of consumption, BUBBA, liver disease. will give unit of platelets prior to d/c lumbar drain. 07/09: Troponin spill resolving without evidence of ongoing injury. Major obstacle is agitation related to ETOH withdrawal followed by necessary sedation. Continue to work toward vent weaning. 07/10: Afebrile. Not following commands. Continues to be agitated for reasons above. Tolerating tube feeding at goal rate. Creatinine hopefully has plateaued. 07/11: CURRENT TEMPERATURE 100.2. MRI brain yesterday revealed left cellular restricted diffusion area likely acute infarct with small punctate areas within the coronal radiata possibly embolic event. Patient is arousable and will move all 4 extremities but not following commands. Left foot remains cool. Tolerating tube feeding. No bowel movement times 4 days. 07/12: Tmax 99.7. Currently 99. Noted right vertebral/distal left MCA/mid right MAIL SORTER AND DELIVERY stenosis on imaging yesterday. Central line exchange from right to left side due to bleeding. No bowel movement for tolerating tube feedings with very low residuals. Still wean sedation. 07/13: Currently afebrile. Patient with soap side enema yesterday with's positive BM 3 overnight.. Go containment device currently in place. Currently hypertensive/when necessary labetalol and clonidine will be added. Noted liberalize SCI around 120 systolic blood pressure. Arousable on the ventilator and moves all 4 extremities spontaneously but not following commands. 07/14: Tmax 99.3. No significant bowel movement overnight. Currently hypotensive. Noted SCI around 120 systolic blood pressure recommended by vascular surgery. Arousable on ventilator on sedation vacation moves all 4 extremity spontaneously but not to commands. Subjective: 07/15: Afebrile. -2775 cc stool past 24 hours. Currently hypertensive. Bradycardic. Requiring antihypertensives. Plan for percutaneous cholecystostomy tube today. Objective Vital Signs Date Time Temp Pulse Resp B/P Pulse Ox O2 Delivery O2 Flow Rate FiO2 07/15/16 08:01 98 40 07/15/16 08:00 Ventilator 07/15/16 06:00 53 07/15/16 06:00 147/44 07/15/16 04:00 97.7 18 Intake and Output 07/14/16 07/14/16 07/15/16 08:00 16:00 00:00 Intake Total 900 ml 1584 ml 1064 ml Output Total 525 ml 650 ml 1600 ml Balance 375 ml 934 ml -536 ml Result Diagram: 07/15/16 0415 07/15/16 0415 Other Results Microbiology Date/Time Procedure Status Source Growth 07/11/16 10:05 Aerobic Blood Culture - Preliminary Resulted Blood Peripheral NO GROWTH IN 3 DAYS 07/11/16 10:05 Anaerobic Blood Culture - Preliminary Resulted Blood Peripheral NO GROWTH IN 3 DAYS 07/11/16 09:05 Urine Culture - Final Complete Urine Catheterized Urine NO GROWTH IN 48 HOURS. 07/11/16 09:05 Gram Stain - Final Complete Sputum Endotracheal 07/11/16 09:05 Sputum Culture - Final Complete Sputum Endotracheal HEAVY GROWTH NORMAL RESPIRATORY KIM Microbiology Date/Time Procedure Status Source Growth 07/11/16 10:05 Aerobic Blood Culture - Preliminary Resulted Blood Peripheral NO GROWTH IN 3 DAYS 07/11/16 10:05 Anaerobic Blood Culture - Preliminary Resulted Blood Peripheral NO GROWTH IN 3 DAYS 07/11/16 09:05 Urine Culture - Final Complete Urine Catheterized Urine NO GROWTH IN 48 HOURS. 07/11/16 09:05 Gram Stain - Final Complete Sputum Endotracheal 07/11/16 09:05 Sputum Culture - Final Complete Sputum Endotracheal HEAVY GROWTH NORMAL RESPIRATORY KIM Imaging Last Impressions Chest X-Ray 07/15/16 0600 Signed Impressions: Service Date/Time: Friday, July 15, 2016 04:38 - CONCLUSION: Some worsening of the bilateral pulmonary infiltrates. Joe Appiah Jr., MD Abdomen X-Ray 07/15/16 0600 Signed Impressions: Service Date/Time: Friday, July 15, 2016 04:41 - CONCLUSION: No dilated bowel to suggest an obstruction. Joe Appiah Jr., MD Gall Bladder Ultrasound 07/14/16 0000 Signed Impressions: Service Date/Time: Thursday, July 14, 2016 11:36 - CONCLUSION: Abnormal gallbladder as described above. Cholecystitis would be consideration. The patient is only minimally tender around the gallbladder. Donis Hernandez MD FACR Abdomen/Pelvis CT 07/13/16 0000 Signed Impressions: Service Date/Time: Wednesday, July 13, 2016 17:29 - CONCLUSION: 1. Abnormal appearance of the gallbladder with wall thickening and possible pericholecystic fluid. No calcified stones. Recommend hepatobiliary tract scan to evaluate for acalculus cholecystitis. 2. Bilateral lower lung consolidation and bilateral pleural effusions. 3. Moderate amount of stool in the left colon. 4. Bilateral nonobstructing renal stones. Joe De Leon MD Neck Magnetic Resonance Angiography 07/11/16 0000 Signed Impressions: Service Date/Time: June 14:29 - CONCLUSION: 1. No evidence of carotid stenosis. 2. Short segment high-grade stenosis involving the mid right vertebral artery greater than 80 with a patent left vertebral artery Abhijeet Salinas MD Head Magnetic Resonance Angiography 07/11/16 0000 Signed Impressions: Service Date/Time: June 14:29 - CONCLUSION: 1. Evidence of atherosclerotic disease with focal distal left MCA branch stenosis and focal mid right MAIL SORTER AND DELIVERY stenosis. 2. No proximal high grade stenosis or aneurysm. Bladimir Gasca MD Brain MRI 07/10/16 0000 Signed Impressions: Service Date/Time: Sunday, July 10, 2016 15:03 - CONCLUSION: 1. Small punctate infarcts involving the left cerebellar hemisphere and deep white matter bilaterally in this patient with a background of amyloid angiopathy. No acute hemorrhage is seen. Abhijeet Salinas MD Renal Ultrasound 07/08/16 0000 Signed Impressions: Service Date/Time: Friday, July 08, 2016 17:16 - CONCLUSION: 1. Resistive indices could not be obtained on the right side into the patient's body habitus and shadowing bowel gas. Left renal artery resistive indices are within normal limits. 2. No significant abdominal aortic aneurysm identified status post repair. 3. Probable 7 mm nonobstructing midpole right renal calculus. 4. Tiny left lower pole cyst measuring 1.5 cm. Hamlet Vinson MD Aorta CTA 07/04/16 0000 Signed Impressions: Service Date/Time: June 19:53 - CONCLUSION: 1. Extensive aortic dissection extending from the proximal transverse aorta just distal to the origin of the left subclavian artery. Dissection extends distally through both superficial femoral arteries. 2. Occlusion of the right renal artery with absent perfusion of the right kidney. Dissection of the left renal artery with absent perfusion of the anterior left kidney. 3. 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 4. Occlusion of left external iliac artery and right internal iliac artery. 5. ET tube in satisfactory position. Dependent consolidation in both lungs. Probable mild liver cirrhosis. No obstruction or free fluid. Russell catheter in decompressed bladder. See above discussion. Rodriguez Jeff MD Objective Remarks GENERAL: 60-year-old male, critically ill currently orotracheally intubated HEENT: Normocephalic. Atraumatic. Pupils 3 mm, reactive, conjugate bilaterally. NECK: Trachea is midline. Supple. Left IJ is clean dry and intact. Orotracheally intubated CHEST: Clear to auscultation bilaterally without wheezes rales or rhonchi. CARDIOVASCULAR: RRR. S1, S2 no S4. Without murmur ABDOMEN: Protuberant, tender to palpation periumbilical region. No rigidity. Hypoactive bowel sounds are appreciated MUSCULOSKELETAL: Distal pulses 2+. Left lower extremity fasciotomy site covered with Sandeep wrap. Medial aspect is sutured. Left foot is cool NEUROLOGICAL: Positive corneal reflex. Positive gag. Withdraws in both upper and LEs to noxious stimuli. Opens eyes but not following commands Urinary Catheter: Yes Assessment to: Continue Russell insert reason: Prolonged Immobilization Vascular Central Line Catheter: Yes Assessment to: Continue Date of Insertion: Jul 11, 2016 Line: Central Venous Catheter Side: Left Location: Internal, Jugular A/P Assessment and Plan Neuro/Psych: Left cerebellar lacunar infarct Right vertebral/distal left MCA and mid right MAIL SORTER AND DELIVERY stenosis Severe Agitated Delirium Alcohol Withdrawal - up to 15 beers daily Risk for spinal cord hypoperfusion Alcohol abuse History of polysubstance abuse including crack cocaine Lumbar drain placement - removed 07/08 Insomnia Propofol at 30 mcg/kg/m and as needed fentanyl 50 mcg every hour for sedation/ analgesia while intubated -- Goal RASS -2 --Daily sedation vacation On melatonin 5 mg at night as needed for insomnia Daily thiamine 100 mg daily for EtOH use MRI brain 07/10 revealed left cerebellar cystic diffusion region with small punctate areas in the suarez radiata likely embolic. Possible amyloid. MRA head/neck revealed right vertebral 80% short segment stenosis, distal left MCA and mid right MAIL SORTER AND DELIVERY stenosis EEG 07/10 revealed no seizure activity Delirium/Withdraw regimen: --Tizanidine 2mg po BID for pain adjuvant and to help with delirium --Seroquel 25 mg twice a day for delirium/weaning to off --Haldol 5mg iv q4h prn for breakthrough agitation. --Valium 5mg po q8hr for etoh withdraw, start slow taper over through 07/15 --Ativan 1mg iv q15min prn for withdraw symptoms --continue to avoid Precedex for now given recent junctional bradycardia, NSTEMI , and need for continued spinal cord protection with goal systolic blood pressure of 140 to 160 recommended per vascular surgery. -- Okayed with Dr. Long for aspirin 324 mg daily Respiratory: Acute hypoxic and hypercarbic respiratory failure -- PRVC 18/550/0.8/5/40 Vent bundle Bronchodilator therapy every 6 hours and albuterol every 2 hours when needed Head of bed 30 07/12 SAT/SBT approximately 3 hours.. Yesterday minimal due to multiple scans performed Wean FiO2 for goal SPO2 greater than 92% Follow-up a.m. chest x-ray showed small pleural effusions bilaterally/ essentially stable chest x-ray Noted possibly will need bilateral chest tubes if unable to successfully wean. Possible tracheostomy Noted approximately 2 cm of pleural fluid bilaterally on CT abdomen pelvis Cardiovascular: Postop day #11 T4 with left lower x-ray fasciotomy secondary to type B aortic dissection with renal/visceral and left lower extreme L perfusion Thoracic endovascular stent with left lower extremity fasciotomy/ compartments with [address] Long Acute type B dissection- secured Type II NSTEMI- Demand Ischemia- resolving Junction bradycardia- resolved. Lactic Acidosis- resolved. Goal SBP > 120 for spinal cord protection -- troponin downtrending. 6.81 -- elevated troponins likely combination of demand ischemia and poor renal clearance -- Cardiology: Dr. Mondragon following. plan for conservative management with myocardial perfusion scan when stable. -- 2d echo: EF 55%, no RWMA. 2-D echo 07/08 repeat EF 60-65%. Mild MR. [facility] dilated. RENO 49 mmHg --Cardiac output currently is 3.8. SVV is 13 As needed labetalol/clonidine for systolic blood pressure greater than 160 My partner added hydralazine overnight. --Use norepinephrine to maintain systolic blood pressure greater than 120 Renal: Acute kidney injury Acute Tubular Necrosis Right and left nephrolithiasis Likely secondary to hypoperfusion of the kidney from dissection, ATN -- FENa 07/07 1.2% consistent with ATN. Urine eos negative. Urine urea ordered -- order renal ultrasound with doppler. Revealed patent renal arteries bilaterally. Tiny 7 mm right renal calculus and 1.5 cm left renal cyst. -- Strict I/Os Russell placement to be maintained --nephrology consult 07/08 appreciated. No indication for dialysis at this point Avoid nephrotoxins drugs BUN/creatinine. Stabilized FEN/GI: Colonic ileus Acute protein calorie malnutrition- mild Non-anion gap metabolic acidosis- resolved. Hyperphosphatemia Hyper-magnesium Hyponatremia History of peptic ulcer disease Hepatitis C -from IV drug use Elevated AST TF: Nepro at goal 40 cc an hour --nutrition consult. Daily BMP --Currently on PhosLo 2668 mg 3 times a day for hyperphosphatemia Protonix for GI prophylaxis. Stephie-Colace twice a day for bowel regimen. MiraLAX twice a day lactulose 4 times daily. KUB revealed 8 cm transverse colon ileus. Positive results with sepsis enema yesterday. CT abdomen/those revealed wall thickening or gallbladder. 2 right midpole no obstructing kidney stones, left circumflex continues on, to semi-bilateral pleural effusions and large amount stool left colon. 2775 cc stools after colonoscopy/GoLYTELY regimen Plan for percutaneous cholecystostomy tube for gallbladder. Not a surgical candidate at this time. Heme/ID: Leukocytosislikely reactive Acute Blood Loss Anemia Thrombocytopenia Daily CBC No infectious etiology suspected this time Daily coags --thrombocytopenia is likely multifactorial from liver disease, consumptive from critical illness and dissection. Blood cultures/sputum/urine ordered 07/11 no growth to date Endocrine: Hyperglycemia of critical illness -- SSI, medium scale, every 6 hours Prophylaxis: GI Prophylaxis Protonix 40 mg IV every 24 DVT Prophylaxis -- SCDs/heparin The patient may receive heparin subcutaneous every 12. Patient may additionally receive aspirin, but not Plavix. Lines: 07/13 -radial arterial line --07/04-07/11 right IJ cortis -- Left IJ CVL 07/11 present Critical Care: The total critical care time was 35 minutes. Time to perform other separately billable procedures was not included in the critical care time. Chris Helton MD Jul 15, 2016 08:55
[2016-07-15] MEDS: ASPIRIN 81 MG CHEW TAB CHEW SCH (09:00)
[2016-07-15] MEDS: THIAMINE HCL 100 MG TAB PO SCH (09:00)
[2016-07-15] MEDS: DOCUSATE SODIUM 50 MG/SENNA 8.6 MG TAB PO SCH ×2 (09:00→20:08)
[2016-07-15] MEDS: MULTIVITAMIN TAB PO SCH (09:00)
[2016-07-15] MEDS: SODIUM CHLORIDE 0.9% FLUSH 10 ML FLUSH IVF SCH (09:00)
[2016-07-15] MEDS: LACTULOSE SYRUP 20 GM/30 ML CUP PO SCH ×4 (09:00→20:08)
[2016-07-15] MEDS: POLYETHYLENE GLYCOL 17 GM PKG OG-TUBE SCH ×2 (09:00→20:09)
[2016-07-15] MEDS: PANTOPRAZOLE SODIUM 40 MG VIAL IV SCH (09:01)
[2016-07-15] MEDS: CHLORHEXIDINE 0.12% (ORAL KIT) 15 ML CUP MT SCH ×2 (09:01→20:09)
[2016-07-15] MEDS: QUEtiapine FUMARATE 25 MG TAB PO SCH ×2 (09:04→20:08)
[2016-07-15] MEDS: CALCIUM ACETATE 667 MG CAP PO SCH ×3 (09:04→18:32)
[2016-07-15] MEDS: hydrALAZINE HCL 20 MG/ML VIAL IV PRN (09:05)
--- NOTE | 2016-07-15 10:58 | PD.VS.PN ---
Subjective POD #: 11 Procedure(s): TEVAR, L LE fasciotomies for acute TBAD with visceral/renal/LLE malperfusion Subjective/Hospital Course Persistent ileus and mild leukocytosis CT abd showed gall bladder inflammation though he is not tender in RUQ ( although limited exam). Objective Neuro: MENSAH; sedated appropriately Pulmonary: weaning vent Cardiac: reg rate, bp ok for goal 120 at least FEN/GI: TF on hold; suspect acalculous cholecystitis : BUN/cr still very high but + UOP; K 4.7 today ID Antibiotics(date/duration): WBC 16 none ID Cultures: NGTD Heme: Hct 25, plt 306 Vascular: + pulses B; fasciotomies closed Laboratory Laboratory Tests Test 07/15/16 04:15 White Blood Count 15.8 Red Blood Count 2.71 Hemoglobin 8.5 Hematocrit 25.0 Mean Corpuscular Volume 92.2 Mean Corpuscular Hemoglobin 31.2 Mean Corpuscular Hemoglobin 33.8 Concent Red Cell Distribution Width 13.8 Platelet Count 306 Mean Platelet Volume 8.3 Neutrophils (%) (Auto) 83.0 Lymphocytes (%) (Auto) 2.4 Monocytes (%) (Auto) 12.0 Eosinophils (%) (Auto) 2.5 Basophils (%) (Auto) 0.1 Neutrophils # (Auto) 13.1 Lymphocytes # (Auto) 0.4 Monocytes # (Auto) 1.9 Eosinophils # (Auto) 0.4 Basophils # (Auto) 0.0 CBC Comment AUTO DIFF Differential Total Cells 100 Counted Neutrophils % (Manual) 76 Band Neutrophils % 6 Lymphocytes % 4 Monocytes % 9 Eosinophils % 3 Basophils % 1 Neutrophils # (Manual) 13.1 Myelocytes 1 Differential Comment FINAL DIFF MANUAL Platelet Estimate NORMAL Platelet Morphology Comment NORMAL Red Cell Morphology Comment NORMAL Prothrombin Time 10.8 Prothromb Time International 1.0 Ratio Activated Partial 31.5 Thromboplast Time Sodium Level 140 Potassium Level 4.7 Chloride Level 103 Carbon Dioxide Level 22.7 Anion Gap 14 Blood Urea Nitrogen 115 Creatinine 5.71 Estimat Glomerular Filtration 10 Rate Random Glucose 97 Calcium Level 8.4 Phosphorus Level 6.8 Magnesium Level 3.6 Total Bilirubin 1.8 Aspartate Amino Transf 62 (AST/SGOT) Alanine Aminotransferase 27 (ALT/SGPT) Alkaline Phosphatase 151 Total Protein 6.0 Albumin 1.9 Date/Time Procedure Status Source Growth 07/11/16 10:05 Aerobic Blood Culture - Preliminary Resulted Blood Peripheral NO GROWTH IN 3 DAYS 07/11/16 10:05 Anaerobic Blood Culture - Preliminary Resulted Blood Peripheral NO GROWTH IN 3 DAYS 07/11/16 09:05 Urine Culture - Final Complete Urine Catheterized Urine NO GROWTH IN 48 HOURS. 07/11/16 09:05 Gram Stain - Final Complete Sputum Endotracheal 07/11/16 09:05 Sputum Culture - Final Complete Sputum Endotracheal HEAVY GROWTH NORMAL RESPIRATORY KIM Imaging Last 48 hours Impressions Chest X-Ray 07/15/16 06 Signed Impressions: Service Date/Time: Friday, July 15, 2016 04:38 - CONCLUSION: Some worsening of the bilateral pulmonary infiltrates. Joe Appiah Jr., MD Abdomen X-Ray 07/15/16 06 Signed Impressions: Service Date/Time: Friday, July 15, 2016 04:41 - CONCLUSION: No dilated bowel to suggest an obstruction. Joe Appiah Jr., MD Chest X-Ray 07/14/16 06 Signed Impressions: Service Date/Time: Thursday, July 14, 2016 03:11 - CONCLUSION: Stable chest x-ray with bibasilar opacities, left greater than right. Aleksey Turner MD Abdomen X-Ray 07/14/16 0600 Signed Impressions: Service Date/Time: Thursday, July 14, 2016 03:14 - CONCLUSION: There is a paucity of bowel with no findings to suggest obstruction. Aleksey Turner MD Gall Bladder Ultrasound 07/14/16 0000 Signed Impressions: Service Date/Time: Thursday, July 14, 2016 11:36 - CONCLUSION: Abnormal gallbladder as described above. Cholecystitis would be consideration. The patient is only minimally tender around the gallbladder. Donis Hernandez MD FACR Assessment and Plan Plan POD#11 s/p TEVAR and L LE fasciotomy Expected ATN - maybe resolving; weaning vent; ileus and mild leukocytosis may be acalculous cholecystitis 1. Neuro: MENSAH; CVA on MRI; will continue to lighten sedation; following commands. 2. Resp: wean vent as tolerated; may req pleural drain if effusions affecting ability to come off vent; may also req trach 3. CV: can liberalize Goal SBP to 120 for SCI protection 4. FEN/GI: TF held; ileus. Rec IR to place perc pita tube and send for cx, treat x 14d 5. : ATN; will avoid nephrotoxic meds, exogenous K. Renal duplex looked great. No need for HD. Recheck creatinine tomorrow. 6. ID: no issues 7. Heme: Hct stable (25). 8. endocrine: SSI as per ICU team 9. continue pulse checks - perfusion to LLE restored with TEVAR 10. ALTERNATIVE CODE: NO CHEST COMPRESSIONS and NO CARDIOVERSION. Otherwise, continue all current levels of care. Hamlet Long MD FACS childbirth and infant care teacher [facility] at [facility] [phone] Hamlet Long MD Jul 15, 2016 10:58
--- NOTE | 2016-07-15 12:34 | HHI.NPPN ---
Subjective History of Present Illness This patient is a 60-year-old male apparently with a history of previous alcohol and crack usage also has a history of hepatitis C, coronary disease and hypertension as well as medical noncompliance. Patient was admitted with a type B aortic dissection. CTA thoracic aorta and abdominal aorta performed July 04, 2016 revealed occluded right renal artery as well as perfusion only to the left posterior aspect of the left kidney. Patient status post emergent TAVA, left lower extremity fasciectomy mention of previous nonperfusion to that extremity. Patient's creatinine level was within normal range from previous records prior to this admission however patient had evidence of renal sufficiency on presentation and his creatinine level has continued to rise to a level of 4.75 Date of Consultation with marginal urine output. Interval History Remains intubated. UOP improved slightly Review of Systems General General Remarks Unobtainable because of clinical status. Objective Data Data 07/14/16 07/15/16 19:00 07:00 Intake Total 1584 ml 5456 ml Output Total 650 ml 3800 ml Balance 934 ml 1656 ml IV Total 1364 ml 1336 ml Tube Feeding 4000 ml Other 220 ml 120 ml Output Urine Total 400 ml 1025 ml Stool Total 2775 ml Gastric Drainage Total 250 ml # Bowel Movements 1 Vital Signs Date Time Temp Pulse Resp B/P Pulse Ox O2 Delivery O2 Flow Rate FiO2 07/15/16 12:08 95 40 07/15/16 12:00 40 07/15/16 12:00 99.7 63 21 131/61 96 07/15/16 12:00 62 07/15/16 10:51 40 07/15/16 10:49 97 40 07/15/16 10:00 62 07/15/16 08:01 98 40 07/15/16 08:00 99 Ventilator 40 07/15/16 08:00 98.6 58 19 139/63 99 07/15/16 08:00 40 07/15/16 08:00 58 07/15/16 07:00 99 Mechanical Ventilator 40 07/15/16 06:00 53 07/15/16 06:00 147/44 07/15/16 04:24 99 40 07/15/16 04:00 40 07/15/16 04:00 168/58 07/15/16 04:00 97.7 60 18 168/58 96 07/15/16 04:00 60 07/15/16 02:00 52 07/15/16 02:00 148/46 07/15/16 00:00 165/53 07/15/16 00:00 59 07/15/16 00:00 40 07/15/16 00:00 97.8 58 18 160/54 97 07/14/16 23:59 97 40 07/14/16 22:59 18 07/14/16 22:00 180/58 07/14/16 22:00 56 07/14/16 20:10 98 40 07/14/16 20:00 58 07/14/16 20:00 60 07/14/16 20:00 98.5 98 18 156/48 98 07/14/16 20:00 142/68 07/14/16 19:00 98 Mechanical Ventilator 60 07/14/16 18:00 58 07/14/16 18:00 152/49 07/14/16 16:08 96 80 07/14/16 16:00 80 07/14/16 16:00 98.8 59 18 146/48 96 07/14/16 16:00 146/48 07/14/16 16:00 59 07/14/16 14:00 167/52 07/14/16 14:00 62 -: 07/15/16 0415 07/15/16 0415 Medication Review Current Medications Medications (Trade) Dose Ordered Sig/Sascha Route Start Time Stop Time Status Last Admin (Peridex 0.12% Liq) 15 ml BID@08,20 MT 07/05/16 08:00 07/15/16 09:01 (D50w (Vial) Inj) 25 ml UNSCH PRN IV PUSH 07/04/16 22:45 (NovoLIN R SUPPLEMENTAL SCALE) 1 Q6HR SQ 07/05/16 00:00 07/09/16 18:00 (Vitamin B1) 100 mg DAILY PO 07/08/16 09:00 07/14/16 08:47 (Theragran) 1 tab DAILY PO 07/05/16 09:00 07/14/16 08:48 (NS Flush) 2 ml UNSCH PRN IV FLUSH 07/04/16 22:45 (Tylenol) 650 mg Q6H PRN PO 07/04/16 22:45 07/11/16 04:32 (Protonix Inj) 40 mg DAILY IV 07/05/16 09:00 07/15/16 09:01 (Stephie-Colace) 2 tab BID PO 07/05/16 09:00 07/14/16 19:59 Miscellaneous Information 1 Q361D XX 07/04/16 22:45 (Chlorhexidine 2% Cloth) Taper DAILY@04 TOP 07/05/16 04:00 07/01/17 03:59 07/13/16 04:00 Chlorhexidine Gluconate 3 pack 3 pack UNSCH PRN TOP 07/04/16 22:45 (Levophed-Dextrose Drip) 250 ml @ 0 mls/hr TITRATE IV 07/05/16 18:30 07/09/16 21:06 (Haldol Inj) 5 mg Q4H PRN IV 07/06/16 13:30 07/06/16 14:04 (Ativan Inj) 1 mg Q15M PRN IV PUSH 07/06/16 13:30 07/06/16 14:05 (Melatonin) 5 mg HS PO 07/06/16 21:00 07/14/16 19:59 Fentanyl Citrate 25 mcg 25 mcg Q30M PRN IV PUSH 07/06/16 13:45 07/14/16 21:59 (Diprivan 1000 Mg/100ml Inj) 100 ml @ 0 mls/hr TITRATE IV 07/06/16 22:45 07/15/16 06:27 (Phoslo) 2,668 mg TID PO 07/07/16 09:00 07/15/16 09:04 (Pill Splitter) 1 ea UNSCH PRN OTHER 07/07/16 07:30 (Zanaflex) 2 mg Q12H PO 07/10/16 02:00 07/15/16 05:17 (Miralax) 17 gm BID OG-TUBE 07/10/16 09:00 07/14/16 19:59 (Tears Naturale Opth Soln) 1 drop Q8HR EACH EYE 07/10/16 14:00 07/15/16 05:19 (Lactulose Liq) 30 ml QID PO 07/11/16 09:00 07/14/16 19:59 (NS Flush) DAILY IVF 07/12/16 09:00 07/14/16 08:46 (NS Flush) UNSCH PRN IVF 07/11/16 16:45 (Aspirin Chew) 324 mg DAILY CHEW 07/11/16 17:30 07/14/16 08:48 (Glycerin Adult Supp) 2 gm BID PRN RECTAL 07/12/16 06:45 07/12/16 09:58 Quetiapine Fumarate 25 mg 25 mg BID PO 07/12/16 09:00 07/15/16 09:04 (NS 1000 ml Inj) 1,000 ml @ 100 mls/hr Q10H IV 07/12/16 17:00 07/15/16 05:19 (Trandate Inj) 10 mg Q1HR PRN IV PUSH 07/13/16 10:00 07/14/16 09:05 (Catapres) 0.1 mg Q6H PRN PO 07/13/16 10:00 07/14/16 08:48 (Reglan Inj) 5 mg Q8HR IV PUSH 07/13/16 14:00 07/15/16 05:19 (Apresoline Inj) 20 mg Q6H PRN IV 07/14/16 23:15 07/15/16 09:05 (fentaNYL INJ) 50 mcg Q1H PRN IV PUSH 07/15/16 09:00 (Heparin Inj) 5,000 units Q12HR SQ 07/15/16 21:00 Physical Exam General Appearance: No Acute Distress, Comfortable Pulmonary Resp Exam: Clear Bilaterally, Breath Sounds Equal, No Distress Cardiology CV Exam: Regular, Normal Sinus Rhythm Gastrointestinal/Abdomen GI Exam: Soft, Non-Tender Integumentary Skin Exam: Clear, Warm Extremeties Extremities Exam: Moderate Edema (2+ pitting edema lower extremities. 1+. Pitting edema upper extremities.) Extremeties Remarks 2+ Hands and BLE Assessment/Plan Problem List: (1) Acute kidney insufficiency Plan: Patient most likely has sustained severe ischemic injuries to both kidneys as a result of dissection involving renal arteries. UOP improved slightly as well as SCr Significant fluid overload, however. Will re-eval in the AM. Consideration to be given for dialysis if not improving. Medications should be adjusted for the patient's estimated GFR if clinically indicated. Avoid agents with significant potential for nephrotoxicity possible including NSAIDs for analgesia, iodine contrast agents if possible. Gadolinium is contraindicated if the GFR is below 30. (2) Hepatitis C Plan: Not playing a role as far as his acute renal failure is concerned in this setting. (3) HTN (hypertension) (4) Hyperphosphatemia Plan: Secondary to renal failure. Noted phosphate binder started. Plan Paty Rizo Jul 15, 2016 12:34
[2016-07-15] MEDS ORDERED: LEVOFLOXACIN 500 MG PREMIX INJ 100 ML IV ONE (16:22)
[2016-07-15] MEDS ORDERED: MIDAZOLAM HCL 5 MG/5 ML VIAL ONE (16:22)
[2016-07-15] MEDS ORDERED: fentaNYL CITRATE 250 MCG/5 ML AMP ONE (16:23)
--- NOTE | 2016-07-15 16:42 | PD.RAD ---
Post Procedure Progress Note Pre Procedure Diagnosis: (1) Cholecystitis Post Procedure Diagnosis: (1) Cholecystitis Procedure Date: Jul 15, 2016 Supervising Radiologist: Aleksey Mendez Proceduralist/Assist: RT Seema(R)() Anesthesia: Local, Conscious Sedation Plan of Activity Patient to Unit: Critical Care Patient Condition: Fair See PACS Report for procedural detail/treatment Drainage Procedure Procedure 1 Imaging Guidance: Fluoroscopy, Ultrasound Side: Right Procedure Type: Cholecystostomy Procedure: Placement Gabonese: 6 Drainage: Ralls drainage Fluid Removal (CCs): 6 Fluid Description: Bilious Aleksey Mendez MD Jul 15, 2016 16:42
[2016-07-15] MEDS ORDERED: IOHEXOL 350 MG/ML 50 ML BTL (for RAD DIAG) ONE (16:43)
--- NOTE | 2016-07-15 17:25 | RADRPT ---
EXAM DATE/TIME: 07/15/2016 15:38 [facility] COMPARISON: No previous studies available for comparison. INDICATIONS : Patient with cholecystitis in need of cholecystostomy tube placement. MEDICAL HISTORY : CAD, HTN, CHF, Hepatitis C, COPD, Cirrhosis, Type B aortic dissection SURGICAL HISTORY : Left lower extremity fasciotomy, Lumbar drain, Thoracic endovascular stent placement ENCOUNTER: Initial ACUITY: 1 week PAIN SCORE: 0/10 FLUORO TIME: 4.3 minutes IMAGE SERIES: 1 SEDATION TIME: 60 minutes CONTRAST: 3 cc Omnipaque (iohexol) 350 MEDICATION(S): 1.) 50 mcg fentanyl (Sublimaze) IV DEVICE(S): 1.) 6 Russian X20cm Skater catheter PROCEDURE : 1. Ultrasound guided puncture of the gallbladder. 2. Percutaneous cholangiogram. 3. Percutaneous cholecystostomy tube placement. 4. Conscious sedation with continuous EKG and oximetry monitoring. The risks, benefits and alternatives to the procedure were explained and verbal and written consent w as obtained. The site was prepped in sterile fashion. Full sterile technique was used, including ca p, mask, sterile gloves and gown and a large sterile sheet. Hand hygiene and 2% chlorhexidine and/or betadine/alcohol prep was utilized per protocol for cutaneous antisepsis. The skin and subcutaneous tissues were infiltrated with local anesthetic solution. With ultrasound and fluoroscopic guidance the gallbladder was punctured with a micropuncture set and a 4 Russian dilator was placed. Injection of positive contrast demonstrates position within the gallb ladder. A 0.035 guidewire was placed within the gallbladder lumen and dilatation was performed to ac cept the prescribed catheter. Conscious sedation was performed with the prescribed dosages and duration as above in the presence of an independent trained radiology nurse to assist in the monitoring of the patient. EKG and oximetry remained stable throughout the procedure. The patient tolerated the procedure well and there were n o complications. The patient was sent to post anesthesia recovery in stable condition. CONCLUSION: Uncomplicated percutaneous cholecystostomy as above. Aleksey Mendez MD on July 15, 2016 at 17:24 Board Certified Radiologist. This report was verified electronically.
--- NOTE | 2016-07-15 18:13 | HHI.PR ---
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---possible amyloid angiopathy aortic dissection s/p endovascular repair Plan continue asa Diagnosis/Plan: Subjective Subjective Comments No acute events reported Active Medications Current Medications Medications (Trade) Dose Ordered Sig/Sascha Route Start Time Stop Time Status Last Admin (Peridex 0.12% Liq) 15 ml BID@08,20 MT 07/05/16 08:00 07/15/16 09:01 (D50w (Vial) Inj) 25 ml UNSCH PRN IV PUSH 07/04/16 22:45 (NovoLIN R SUPPLEMENTAL SCALE) 1 Q6HR SQ 07/05/16 00:00 07/09/16 18:00 (Vitamin B1) 100 mg DAILY PO 07/08/16 09:00 07/14/16 08:47 (Theragran) 1 tab DAILY PO 07/05/16 09:00 07/14/16 08:48 (NS Flush) 2 ml UNSCH PRN IV FLUSH 07/04/16 22:45 (Tylenol) 650 mg Q6H PRN PO 07/04/16 22:45 07/11/16 04:32 (Protonix Inj) 40 mg DAILY IV 07/05/16 09:00 07/15/16 09:01 (Stephie-Colace) 2 tab BID PO 07/05/16 09:00 07/14/16 19:59 Miscellaneous Information 1 Q361D XX 07/04/16 22:45 (Chlorhexidine 2% Cloth) Taper DAILY@04 TOP 07/05/16 04:00 07/01/17 03:59 07/13/16 04:00 Chlorhexidine Gluconate 3 pack 3 pack UNSCH PRN TOP 07/04/16 22:45 (Levophed-Dextrose Drip) 250 ml @ 0 mls/hr TITRATE IV 07/05/16 18:30 07/09/16 21:06 (Haldol Inj) 5 mg Q4H PRN IV 07/06/16 13:30 07/06/16 14:04 (Ativan Inj) 1 mg Q15M PRN IV PUSH 07/06/16 13:30 07/06/16 14:05 (Melatonin) 5 mg HS PO 07/06/16 21:00 07/14/16 19:59 Fentanyl Citrate 25 mcg 25 mcg Q30M PRN IV PUSH 07/06/16 13:45 07/14/16 21:59 (Diprivan 1000 Mg/100ml Inj) 100 ml @ 0 mls/hr TITRATE IV 07/06/16 22:45 07/15/16 06:27 (Phoslo) 2,668 mg TID PO 07/07/16 09:00 07/15/16 14:49 (Pill Splitter) 1 ea UNSCH PRN OTHER 07/07/16 07:30 (Zanaflex) 2 mg Q12H PO 07/10/16 02:00 07/15/16 14:49 (Miralax) 17 gm BID OG-TUBE 07/10/16 09:00 07/14/16 19:59 (Tears Naturale Opth Soln) 1 drop Q8HR EACH EYE 07/10/16 14:00 07/15/16 05:19 (Lactulose Liq) 30 ml QID PO 07/11/16 09:00 07/14/16 19:59 (NS Flush) DAILY IVF 07/12/16 09:00 07/14/16 08:46 (NS Flush) UNSCH PRN IVF 07/11/16 16:45 (Aspirin Chew) 324 mg DAILY CHEW 07/11/16 17:30 07/14/16 08:48 (Glycerin Adult Supp) 2 gm BID PRN RECTAL 07/12/16 06:45 07/12/16 09:58 Quetiapine Fumarate 25 mg 25 mg BID PO 07/12/16 09:00 07/15/16 09:04 (NS 1000 ml Inj) 1,000 ml @ 100 mls/hr Q10H IV 07/12/16 17:00 07/15/16 05:19 (Trandate Inj) 10 mg Q1HR PRN IV PUSH 07/13/16 10:00 07/14/16 09:05 (Catapres) 0.1 mg Q6H PRN PO 07/13/16 10:00 07/14/16 08:48 (Reglan Inj) 5 mg Q8HR IV PUSH 07/13/16 14:00 07/15/16 14:53 (Apresoline Inj) 20 mg Q6H PRN IV 07/14/16 23:15 07/15/16 09:05 (fentaNYL INJ) 50 mcg Q1H PRN IV PUSH 07/15/16 09:00 (Heparin Inj) 5,000 units Q12HR SQ 07/15/16 21:00 Bumetanide 2 mg 2 mg BID@09,18 IV PUSH 07/15/16 18:00 (Zosyn 2.25 Gm Premix) 50 ml @ 100 mls/hr Q12H IV 07/15/16 18:00 Allergies Allergies Coded Allergies No Known Allergies ([id number]/7/07) Exam I&O / VS 07/14/16 07/14/16 07/15/16 15:00 23:00 07:00 Intake Total 1584 ml 1064 ml 4392 ml Output Total 650 ml 1600 ml 2200 ml Balance 934 ml -536 ml 2192 ml IV Total 1364 ml 944 ml 392 ml Tube Feeding 4000 ml Other 220 ml 120 ml Output Urine Total 400 ml 600 ml 425 ml Stool Total 1000 ml 1775 ml Gastric Drainage Total 250 ml # Bowel Movements 1 Vital Signs Date Time Temp Pulse Resp B/P Pulse Ox O2 Delivery O2 Flow Rate FiO2 07/15/16 16:00 62 07/15/16 16:00 40 07/15/16 14:00 62 07/15/16 12:08 95 40 07/15/16 12:00 40 07/15/16 12:00 99.7 63 21 131/61 96 07/15/16 12:00 62 07/15/16 10:51 40 07/15/16 10:49 97 40 07/15/16 10:00 62 07/15/16 08:01 98 40 07/15/16 08:00 99 Ventilator 40 07/15/16 08:00 98.6 58 19 139/63 99 07/15/16 08:00 40 07/15/16 08:00 58 07/15/16 07:00 99 Mechanical Ventilator 40 07/15/16 06:00 53 07/15/16 06:00 147/44 07/15/16 04:24 99 40 07/15/16 04:00 40 07/15/16 04:00 168/58 07/15/16 04:00 97.7 60 18 168/58 96 07/15/16 04:00 60 07/15/16 02:00 52 07/15/16 02:00 148/46 07/15/16 00:00 165/53 07/15/16 00:00 59 07/15/16 00:00 40 07/15/16 00:00 97.8 58 18 160/54 97 07/14/16 23:59 97 40 07/14/16 22:59 18 07/14/16 22:00 180/58 07/14/16 22:00 56 07/14/16 20:10 98 40 07/14/16 20:00 58 07/14/16 20:00 60 07/14/16 20:00 98.5 98 18 156/48 98 07/14/16 20:00 142/68 07/14/16 19:00 98 Mechanical Ventilator 60 Exam Comments lethargic, does not follow complex commands CN--perrl, EOM intact Motor--no posturing or spontaneous limb movement Objective Micro and Labs Laboratory Tests Test 07/15/16 04:15 White Blood Count 15.8 Red Blood Count 2.71 Hemoglobin 8.5 Hematocrit 25.0 Mean Corpuscular Volume 92.2 Mean Corpuscular Hemoglobin 31.2 Mean Corpuscular Hemoglobin 33.8 Concent Red Cell Distribution Width 13.8 Platelet Count 306 Mean Platelet Volume 8.3 Neutrophils (%) (Auto) 83.0 Lymphocytes (%) (Auto) 2.4 Monocytes (%) (Auto) 12.0 Eosinophils (%) (Auto) 2.5 Basophils (%) (Auto) 0.1 Neutrophils # (Auto) 13.1 Lymphocytes # (Auto) 0.4 Monocytes # (Auto) 1.9 Eosinophils # (Auto) 0.4 Basophils # (Auto) 0.0 CBC Comment AUTO DIFF Differential Total Cells 100 Counted Neutrophils % (Manual) 76 Band Neutrophils % 6 Lymphocytes % 4 Monocytes % 9 Eosinophils % 3 Basophils % 1 Neutrophils # (Manual) 13.1 Myelocytes 1 Differential Comment FINAL DIFF MANUAL Platelet Estimate NORMAL Platelet Morphology Comment NORMAL Red Cell Morphology Comment NORMAL Prothrombin Time 10.8 Prothromb Time International 1.0 Ratio Activated Partial 31.5 Thromboplast Time Sodium Level 140 Potassium Level 4.7 Chloride Level 103 Carbon Dioxide Level 22.7 Anion Gap 14 Blood Urea Nitrogen 115 Creatinine 5.71 Estimat Glomerular Filtration 10 Rate Random Glucose 97 Calcium Level 8.4 Phosphorus Level 6.8 Magnesium Level 3.6 Total Bilirubin 1.8 Aspartate Amino Transf 62 (AST/SGOT) Alanine Aminotransferase 27 (ALT/SGPT) Alkaline Phosphatase 151 Total Protein 6.0 Albumin 1.9 Date/Time Procedure Status Source Growth 07/15/16 16:33 Gram Stain Received Abscess Abdomen Pending 07/15/16 16:33 Wound Culture Received Abscess Abdomen Pending 07/11/16 10:05 Aerobic Blood Culture - Preliminary Resulted Blood Peripheral NO GROWTH IN 4 DAYS 07/11/16 10:05 Anaerobic Blood Culture - Preliminary Resulted Blood Peripheral NO GROWTH IN 4 DAYS 07/11/16 09:05 Urine Culture - Final Complete Urine Catheterized Urine NO GROWTH IN 48 HOURS. 07/11/16 09:05 Gram Stain - Final Complete Sputum Endotracheal 07/11/16 09:05 Sputum Culture - Final Complete Sputum Endotracheal HEAVY GROWTH NORMAL RESPIRATORY KIM Dwight Smith PhD Jul 15, 2016 18:13
[2016-07-15] MEDS: BUMETANIDE INJ 1 MG/4 ML VIAL IV PUSH SCH (18:31)
[2016-07-15] MEDS: PIPERACIL-TAZO 2.25 GM PREMIX 50 ML IV SCH (20:07)
[2016-07-15] MEDS: MELATONIN 5 MG TAB PO SCH (20:08)
[2016-07-16] VITALS (18 sets, daily range): BP systolic 125–205; BP diastolic 36–88; PULSE 54–67; RESP 18–22; TEMP 98.3–100.5; O2SAT 93–100
[2016-07-16] MEDS: CHLORHEXIDINE GLUCONATE 2 % 1 PACK (2 CLOTHS) TOP SCH (02:53)
[2016-07-16] MEDS: RESP: ALBUTEROL 2.5 MG/IPRATROPIUM 0.5 MG NEB (SCH) INH ×4 (03:07→20:56)
[2016-07-16] MEDS: PROPOFOL 1000 MG/100 ML INJ 100 ML IV SCH (04:27)
--- NOTE | 2016-07-16 04:49 | RADRPT ---
EXAM DATE/TIME: 07/16/2016 03:25 [facility] COMPARISON: CHEST SINGLE AP, July 15, 2016, 4:38. INDICATIONS : Respiratory failure. MEDICAL HISTORY : Hepatitis C. Cardiovascular disease. Hypertension. SURGICAL HISTORY : Abdominal aortic aneurysm repair. ENCOUNTER: Subsequent ACUITY: 1 week PAIN SCORE: Non-responsive. LOCATION: Bilateral chest FINDINGS: No significant change. By Basler infiltrates and effusions remain. Heart is mildly enlarged. Aortic s tent graft. Tip of the endotracheal tube 3 cm proximal to the jessica. Nasogastric tube and left-sided central line noted. CONCLUSION: Unchanged bibasilar infiltrates and effusions. Joe Appiah Jr., MD on July 16, 2016 at 4:47 Board Certified Radiologist. This report was verified electronically.
[2016-07-16] MEDS: DOBUTamine 250 MG/D5W 250 ML PREMIX DRIP IV SCH (05:15)
[2016-07-16] MEDS: INSULIN NovoLIN REGULAR SUPPLEMENTAL SCALE SQ SCH ×4 (06:00→18:00)
[2016-07-16 06:24] LABS: AUTOMATED NEUTROPHIL # 15.2 TH/MM3 (1.8-7.7); BASOPHIL # 0.2 TH/MM3 (0-0.2); BASOPHIL % 0.9 % (0.0-2.0); EOSINOPHIL # 0.5 TH/MM3 (0-0.4); EOSINOPHIL % 2.6 % (0.0-4.0); LYMPH % 3.6 % (9.0-44.0); LYMPHOCYTE # 0.7 TH/MM3 (1.0-4.8); MEAN CELL VOLUME 91.5 FL (80.0-100.0); MEAN CORPUSCULAR HEMOGLOBIN 31.6 PG (27.0-34.0); MEAN CORPUSCULAR HGB CONC 34.6 % (32.0-36.0); MONO % 10.9 % (0.0-8.0); PLATELET COUNT 356 TH/MM3 (150-450); RED BLOOD COUNT 2.74 MIL/MM3 (4.50-5.90); RED CELL DISTRIBUTION WIDTH 13.6 % (11.6-17.2); WHITE BLOOD COUNT 18.5 TH/MM3 (4.0-11.0)
[2016-07-16 06:27] LABS: HEMO FLAGS AUTO DIFF
[2016-07-16 06:55] LABS: ALT (GPT) 28 U/L (12-78); ANION GAP 14 MEQ/L (5-15); AST (GOT) 70 U/L (15-37); BICARBONATE 21.2 MEQ/L (21.0-32.0); BLOOD UREA NITROGEN 115 MG/DL (7-18); CHLORIDE 104 MEQ/L (98-107); GLOMERULAR FILTRATION RATE 10 ML/MIN (>89); MAGNESIUM 3.4 MG/DL (1.5-2.5); POTASSIUM 4.5 MEQ/L (3.5-5.1); SODIUM (NA) 139 MEQ/L (136-145)
[2016-07-16 06:56] LABS: ALKALINE PHOSPHATASE 174 U/L (45-117); TOTAL BILIRUBIN ADULT 1.7 MG/DL (0.2-1.0)
[2016-07-16] MEDS: ARTIFICIAL TEARS OPTH SOLN 15 ML BTL EACH EYE SCH ×3 (06:56→21:06)
[2016-07-16] MEDS: PIPERACIL-TAZO 2.25 GM PREMIX 50 ML IV SCH ×2 (06:56→17:00)
[2016-07-16] MEDS: METOCLOPRAMIDE HCL 10 MG/2 ML VIAL IV PUSH SCH ×3 (06:57→21:05)
[2016-07-16] MEDS: CHLORHEXIDINE 0.12% (ORAL KIT) 15 ML CUP MT SCH ×2 (08:00→20:48)
[2016-07-16 08:19] LABS: BANDS 4 % (0-6); EOSINOPHILS 4 % (0-4); MYELOCYTES 1 % (0-0); PLATELET ESTIMATE SMEAR NORMAL (NORMAL); PLATELET MORPHOLOGY NORMAL (NORMAL); POLYS (SEG NEUTROPHILS) 87 % (16-70); SCAN/DIFF FINAL DIFF MANUAL; WBC DIFF SAMPLE 100
[2016-07-16] MEDS: CALCIUM ACETATE 667 MG CAP PO SCH ×3 (08:38→17:01)
[2016-07-16] MEDS: MULTIVITAMIN TAB PO SCH (08:38)
[2016-07-16] MEDS: LACTULOSE SYRUP 20 GM/30 ML CUP PO SCH ×4 (08:38→20:48)
[2016-07-16] MEDS: BUMETANIDE INJ 1 MG/4 ML VIAL IV PUSH SCH ×3 (08:39→21:06)
[2016-07-16] MEDS: PANTOPRAZOLE SODIUM 40 MG VIAL IV SCH (08:39)
[2016-07-16] MEDS: DOCUSATE SODIUM 50 MG/SENNA 8.6 MG TAB PO SCH ×2 (08:40→20:49)
[2016-07-16] MEDS: SODIUM CHLORIDE 0.9% FLUSH 10 ML FLUSH IVF SCH (08:40)
[2016-07-16] MEDS: ASPIRIN 81 MG CHEW TAB CHEW SCH (08:40)
[2016-07-16] MEDS: HEPARIN SODIUM - SQ 10,000 UNITS/ML VIAL SQ SCH ×2 (08:42→20:50)
[2016-07-16] MEDS: POLYETHYLENE GLYCOL 17 GM PKG OG-TUBE SCH ×2 (08:47→20:48)
[2016-07-16] MEDS: QUEtiapine FUMARATE 25 MG TAB PO SCH ×2 (08:47→20:49)
[2016-07-16] MEDS: THIAMINE HCL 100 MG TAB PO SCH (08:50)
[2016-07-16] MEDS: SODIUM CHLOR 0.9% 1000 ML INJ 1,000 ML IV SCH (08:53)
--- NOTE | 2016-07-16 10:16 | EKG ---
Date Performed: 07/15/2016 Time Performed: 02:38:56 PTAGE: 60 years EKG: Sinus bradycardia with PAC(s). IV conduction defect Lateral ST-T changes may be due to myoc ardial ischemia Compared to previous tracing, patient now appears to be in sinus bradycardia. Abnorma l ECG PREVIOUS TRACING : 07/04/2016 19.05 DOCTOR: Bernadine Wilson Interpretating Date/Time 07/16/2016 10:15:21
--- NOTE | 2016-07-16 12:00 | HHI.NPPN ---
Subjective History of Present Illness This patient is a 60-year-old male apparently with a history of previous alcohol and crack usage also has a history of hepatitis C, coronary disease and hypertension as well as medical noncompliance. Patient was admitted with a type B aortic dissection. CTA thoracic aorta and abdominal aorta performed July 04, 2016 revealed occluded right renal artery as well as perfusion only to the left posterior aspect of the left kidney. Patient status post emergent TAVA, left lower extremity fasciectomy mention of previous nonperfusion to that extremity. Patient's creatinine level was within normal range from previous records prior to this admission however patient had evidence of renal sufficiency on presentation and his creatinine level has continued to rise to a level of 4.75 Date of Consultation with marginal urine output. Interval History Patient is still intubated nonverbal. Review of Systems General General Remarks Unobtainable because of clinical status. Objective Data Data 07/15/16 07/16/16 19:00 07:00 Intake Total 259 ml 1349 ml Output Total 425 ml 960 ml Balance -166 ml 389 ml IV Total 259 ml 680 ml Tube Feeding 429 ml Other 240 ml Output Urine Total 400 ml 900 ml Stool Total 25 ml Drainage Total 60 ml # Bowel Movements 2 Vital Signs Date Time Temp Pulse Resp B/P Pulse Ox O2 Delivery O2 Flow Rate FiO2 07/16/16 11:49 94 40 07/16/16 10:00 56 07/16/16 10:00 97 40 07/16/16 08:00 63 07/16/16 08:00 99.2 63 22 162/41 97 07/16/16 08:00 40 07/16/16 07:00 95 Mechanical Ventilator 40 07/16/16 06:00 63 07/16/16 04:26 94 40 07/16/16 04:00 40 07/16/16 04:00 98.6 54 21 125/36 95 07/16/16 04:00 54 07/16/16 02:00 56 07/16/16 00:42 99 40 07/16/16 00:00 98.3 54 18 144/40 100 07/16/16 00:00 54 07/16/16 00:00 40 07/15/16 22:00 54 07/15/16 20:06 97 40 07/15/16 20:00 97.8 50 20 152/70 100 07/15/16 20:00 50 07/15/16 20:00 40 07/15/16 19:00 97 Mechanical Ventilator 40 07/15/16 16:00 62 07/15/16 16:00 40 07/15/16 15:45 99 100 07/15/16 14:00 62 07/15/16 12:08 95 40 07/15/16 12:00 40 07/15/16 12:00 99.7 63 21 131/61 96 07/15/16 12:00 62 -: 07/16/16 0600 07/16/16 0600 Microbiology 07/15/16 Gram Stain - Final, Resulted 07/15/16 Wound Culture - Preliminary, Resulted NO GROWTH IN 24 HOURS. Physical Exam General Appearance: No Acute Distress, Comfortable Pulmonary Resp Exam: Clear Bilaterally, Breath Sounds Equal, No Distress Cardiology CV Exam: Regular, Normal Sinus Rhythm Gastrointestinal/Abdomen GI Exam: Soft, Non-Tender Integumentary Skin Exam: Clear, Warm Extremeties Extremities Exam: Moderate Edema (2+ pitting edema lower extremities. 1+. Pitting edema upper extremities.) Assessment/Plan Problem List: (1) Acute kidney insufficiency Plan: Patient most likely has sustained severe ischemic injuries to both kidneys as a result of dissection involving renal arteries. Still with significant fluid retention. Urine output marginal considering on bumetanide every 12.. We will increase bumetanide to every 8 hourly to try and improve his volume status. If no significant improvement in urine output and or worsening azotemia consideration will be given to initiating dialysis. Medications should be adjusted for the patient's estimated GFR if clinically indicated. Avoid agents with significant potential for nephrotoxicity possible including NSAIDs for analgesia, iodine contrast agents if possible. Gadolinium is contraindicated if the GFR is below 30. (2) Hepatitis C Plan: Not playing a role as far as his acute renal failure is concerned in this setting. (3) HTN (hypertension) (4) Hyperphosphatemia Plan: Secondary to renal failure. Noted phosphate binder started. Plan Eufemia Walters MD Jul 16, 2016 11:59
--- NOTE | 2016-07-16 13:22 | PD.VS.PN ---
Subjective POD #: 12 Procedure(s): TEVAR, L LE fasciotomies for acute TBAD with visceral/renal/LLE malperfusion Subjective/Hospital Course Ileus resolved Perc pita yesterday On low dose dobutamine Objective Neuro: MENSAH; weaning sedation Pulmonary: weaning vent Cardiac: reg rate; low dose dobutamine FEN/GI: Nazia TF again. Perc cholecystostomy yesterday - cx NGTD : + UOP but BUN/cr remain elevated ID Antibiotics(date/duration): started yesterday empirically ID Cultures: NGTD Heme: Hct 25 plt 356 Vascular: Strong signals B Fasciotomies closed Laboratory Laboratory Tests Test 07/16/16 06:00 White Blood Count 18.5 Red Blood Count 2.74 Hemoglobin 8.7 Hematocrit 25.0 Mean Corpuscular Volume 91.5 Mean Corpuscular Hemoglobin 31.6 Mean Corpuscular Hemoglobin 34.6 Concent Red Cell Distribution Width 13.6 Platelet Count 356 Mean Platelet Volume 7.8 Neutrophils (%) (Auto) 82.0 Lymphocytes (%) (Auto) 3.6 Monocytes (%) (Auto) 10.9 Eosinophils (%) (Auto) 2.6 Basophils (%) (Auto) 0.9 Neutrophils # (Auto) 15.2 Lymphocytes # (Auto) 0.7 Monocytes # (Auto) 2.0 Eosinophils # (Auto) 0.5 Basophils # (Auto) 0.2 CBC Comment AUTO DIFF Differential Total Cells 100 Counted Neutrophils % (Manual) 87 Band Neutrophils % 4 Lymphocytes % 2 Monocytes % 2 Eosinophils % 4 Neutrophils # (Manual) 17.0 Myelocytes 1 Differential Comment FINAL DIFF MANUAL Platelet Estimate NORMAL Platelet Morphology Comment NORMAL Sodium Level 139 Potassium Level 4.5 Chloride Level 104 Carbon Dioxide Level 21.2 Anion Gap 14 Blood Urea Nitrogen 115 Creatinine 5.64 Estimat Glomerular Filtration 10 Rate Random Glucose 126 Calcium Level 8.2 Phosphorus Level 6.3 Magnesium Level 3.4 Total Bilirubin 1.7 Aspartate Amino Transf 70 (AST/SGOT) Alanine Aminotransferase 28 (ALT/SGPT) Alkaline Phosphatase 174 Total Protein 5.8 Albumin 1.8 Date/Time Procedure Status Source Growth 07/15/16 16:33 Gram Stain - Final Resulted Abscess Abdomen 07/15/16 16:33 Wound Culture - Preliminary Resulted Abscess Abdomen NO GROWTH IN 24 HOURS. Imaging Last 48 hours Impressions Chest X-Ray 4/4/17 0600 Signed Impressions: Service Date/Time: Saturday, July 16, 2016 03:25 - CONCLUSION: Unchanged bibasilar infiltrates and effusions. Joe Appiah Jr., MD Chest X-Ray 07/15/16599 Signed Impressions: Service Date/Time: Friday, July 15, 2016 04:38 - CONCLUSION: Some worsening of the bilateral pulmonary infiltrates. Joe Appiah Jr., MD Abdomen X-Ray 07/15/16599 Signed Impressions: Service Date/Time: Friday, July 15, 2016 04:41 - CONCLUSION: No dilated bowel to suggest an obstruction. Joe Appiah Jr., MD Percutaneous Cholangiogram 07/15/16 0000 Signed Impressions: Service Date/Time: Friday, July 15, 2016 15:38 - CONCLUSION: Uncomplicated percutaneous cholecystostomy as above. Aleksey Mendez MD Assessment and Plan Plan POD#12 s/p TEVAR and L LE fasciotomy Expected ATN - maybe resolving; weaning vent; ileus and mild leukocytosis may be acalculous cholecystitis 1. Neuro: MENSAH; CVA on MRI; will continue to lighten sedation; following commands. 2. Resp: wean vent as tolerated; 3. CV: wean dobutamine; goal SBP 120 4. FEN/GI: TF back at goal; if gallbladder cx negative, ok to d/c antibiotics 5. : ATN; will avoid nephrotoxic meds, exogenous K. Renal duplex looked great. No need for HD. Recheck creatinine tomorrow. 6. ID: antibiotics until cx return 7. Heme: Hct stable (25). 8. endocrine: SSI as per ICU team 9. continue pulse checks - perfusion to LLE restored with TEVAR 10. ALTERNATIVE CODE: NO CHEST COMPRESSIONS and NO CARDIOVERSION. Otherwise, continue all current levels of care. Hamlet Long MD FACS occupational therapist home based [facility] - [facility] at [facility] [phone] Hamlet Long MD Jul 16, 2016 13:22
--- NOTE | 2016-07-16 13:49 | HHI.CCPN ---
Subjective Remarks/Hospital Course Hospital Course: This is a 60-year-old male who is transferred emergently from outside hospital with per report and acute type B dissection. Apparently the patient told his family member today that he had searing back pain and was taken to the emergency department. A CT of the chest at that time showed a type B dissection. The patient was intubated the outside facility and transferred to [facility] for emergent evaluation management. Unfortunately, the patient is unable to provide any additional history at this time. I was at bedside and the patient arrived to the surgical intensive care unit. Dr. Long and I both evaluated the patient and when he arrived he was in a junctional bradycardia with heart rate in the 40s. He had obvious ST depressions in lead II on telemetry. Our initial concern was that we have extended the dissection into the type A dissection. We also did not have any CT of the abdomen and pelvis. On her physical exam, the patient had a cold left foot without pulses. I emergently placed a right radial arterial line, please see separate procedure note for details. We then went emergently to the CT scanner for repeat CT aortogram of the chest abdomen and pelvis to investigate the extent to which the dissection has extended. The CT aortogram demonstrated that this was still a type B dissection with the celiac artery being significantly compressed and possibly comprising flow from the dissection flap. The right kidney appears to be perfused off the false lumen and not the true lumen, and there is no contrast going down the left femoral artery. Patient was then brought back to the intensive care unit. His blood pressure is controlled on nicardipine infusion for goal systolic blood pressure less than 110. A 12-lead EKG at that time was done which demonstrated significant ST depressions in the inferior leads as well as the far lateral leads consistent with subendocardial ischemia. At the request of Dr. Long in anticipation of going emergently to the operative theater, I placed a lumbar drain for spinal protection, please see separate procedure note for details. At that point the patient was taken emergently to the operating room. Critical care medicine is been consulted to evaluate and manage the patient's type B dissection, hemodynamic's, acute hypoxic respiratory failure. 07/05: taken to OR for TEVAR overnight. lactate cleared overnight. uop adequate. Cr elevated to 1.8 this AM. He is on Coreg 50 mg by mouth 07/06: oliguric overnight. Cr rising. however, lactate cleared. other markers of end-organ perfusion better. likely ATN from time of dissection. awake following commands. moving bilateral lower extremities. clear CSF in lumbar drain. on intermittent norepinephrine to maintain spinal perfusion. 07/07: extubated yesterday, followed commands, good pulmonary mechanics. However , after extubation, became acutely delirious- probable combination of etoh withdraw and icu delirium, some pain. mental status waxed and waned throughout the day and ultimately reintubated overnight for worsening waning mental status and hypoxia. post-extubation it has been documented that he continues to move his bilateral lower extremities to painful stimuli and spontaneously. does not follow commands this morning. troponins downtrending. cardiology evaluated the patient yesterday, formal note pending, but per my conversation, plan was for ongoing conservative management as we are doing, and plan for nuc med stress test when stable. 07/08: still moving bilateral LEs spontaneously and w/d to pain. remains intubated with persistent agitation. hypoxia improving. platelets continue to fall, likely a combination of consumption, BUBBA, liver disease. will give unit of platelets prior to d/c lumbar drain. 07/09: Troponin spill resolving without evidence of ongoing injury. Major obstacle is agitation related to ETOH withdrawal followed by necessary sedation. Continue to work toward vent weaning. 07/10: Afebrile. Not following commands. Continues to be agitated for reasons above. Tolerating tube feeding at goal rate. Creatinine hopefully has plateaued. 07/11: CURRENT TEMPERATURE 100.2. MRI brain yesterday revealed left cellular restricted diffusion area likely acute infarct with small punctate areas within the coronal radiata possibly embolic event. Patient is arousable and will move all 4 extremities but not following commands. Left foot remains cool. Tolerating tube feeding. No bowel movement times 4 days. 07/12: Tmax 99.7. Currently 99. Noted right vertebral/distal left MCA/mid right RECORDS MANAGER stenosis on imaging yesterday. Central line exchange from right to left side due to bleeding. No bowel movement for tolerating tube feedings with very low residuals. Still wean sedation. 07/13: Currently afebrile. Patient with soap side enema yesterday with's positive BM 3 overnight.. Go containment device currently in place. Currently hypertensive/when necessary labetalol and clonidine will be added. Noted liberalize SCI around 120 systolic blood pressure. Arousable on the ventilator and moves all 4 extremities spontaneously but not following commands. 07/14: Tmax 99.3. No significant bowel movement overnight. Currently hypotensive. Noted SCI around 120 systolic blood pressure recommended by vascular surgery. Arousable on ventilator on sedation vacation moves all 4 extremity spontaneously but not to commands. Subjective: 07/15: Afebrile. -2775 cc stool past 24 hours. Currently hypertensive. Bradycardic. Requiring antihypertensives. Plan for percutaneous cholecystostomy tube today. 07/16: Remains afebrile. CXR clearing. Renal injury without change, spontaneous urine acceptable. Objective Vital Signs Date Time Temp Pulse Resp B/P Pulse Ox O2 Delivery O2 Flow Rate FiO2 07/16/16 12:00 40 07/16/16 12:00 99.2 62 18 159/43 95 07/16/16 07:00 Mechanical Ventilator Intake and Output 07/15/16 07/15/16 07/16/16 08:00 16:00 00:00 Intake Total 4392 ml 768 ml Output Total 2200 ml 945 ml Balance 2192 ml -177 ml Result Diagram: 07/16/16 0600 07/16/16 06 Imaging Last Impressions Chest X-Ray 07/15/16 06 Signed Impressions: Service Date/Time: Friday, July 15, 2016 04:38 - CONCLUSION: Some worsening of the bilateral pulmonary infiltrates. Joe Appiah Jr., MD Abdomen X-Ray 07/15/16 06 Signed Impressions: Service Date/Time: Friday, July 15, 2016 04:41 - CONCLUSION: No dilated bowel to suggest an obstruction. Joe Appiah Jr., MD Gall Bladder Ultrasound 07/14/16 0000 Signed Impressions: Service Date/Time: Thursday, July 14, 2016 11:36 - CONCLUSION: Abnormal gallbladder as described above. Cholecystitis would be consideration. The patient is only minimally tender around the gallbladder. Donis Hernandez MD FACR Abdomen/Pelvis CT 07/13/16 0000 Signed Impressions: Service Date/Time: Wednesday, July 13, 2016 17:29 - CONCLUSION: 1. Abnormal appearance of the gallbladder with wall thickening and possible pericholecystic fluid. No calcified stones. Recommend hepatobiliary tract scan to evaluate for acalculus cholecystitis. 2. Bilateral lower lung consolidation and bilateral pleural effusions. 3. Moderate amount of stool in the left colon. 4. Bilateral nonobstructing renal stones. Joe De Leon MD Neck Magnetic Resonance Angiography 07/11/16 0000 Signed Impressions: Service Date/Time: June 14:29 - CONCLUSION: 1. No evidence of carotid stenosis. 2. Short segment high-grade stenosis involving the mid right vertebral artery greater than 80 with a patent left vertebral artery Abhijeet Salinas MD Head Magnetic Resonance Angiography 07/11/16 0000 Signed Impressions: Service Date/Time: June 14:29 - CONCLUSION: 1. Evidence of atherosclerotic disease with focal distal left MCA branch stenosis and focal mid right RECORDS MANAGER stenosis. 2. No proximal high grade stenosis or aneurysm. Bladimir Gasca MD Brain MRI 07/10/16 0000 Signed Impressions: Service Date/Time: Sunday, July 10, 2016 15:03 - CONCLUSION: 1. Small punctate infarcts involving the left cerebellar hemisphere and deep white matter bilaterally in this patient with a background of amyloid angiopathy. No acute hemorrhage is seen. Abhijeet Salinas MD Renal Ultrasound 07/08/16 0000 Signed Impressions: Service Date/Time: Friday, July 08, 2016 17:16 - CONCLUSION: 1. Resistive indices could not be obtained on the right side into the patient's body habitus and shadowing bowel gas. Left renal artery resistive indices are within normal limits. 2. No significant abdominal aortic aneurysm identified status post repair. 3. Probable 7 mm nonobstructing midpole right renal calculus. 4. Tiny left lower pole cyst measuring 1.5 cm. Hamlet Vinson MD Aorta CTA 07/04/16 0000 Signed Impressions: Service Date/Time: June 19:53 - CONCLUSION: 1. Extensive aortic dissection extending from the proximal transverse aorta just distal to the origin of the left subclavian artery. Dissection extends distally through both superficial femoral arteries. 2. Occlusion of the right renal artery with absent perfusion of the right kidney. Dissection of the left renal artery with absent perfusion of the anterior left kidney. 3. 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 4. Occlusion of left external iliac artery and right internal iliac artery. 5. ET tube in satisfactory position. Dependent consolidation in both lungs. Probable mild liver cirrhosis. No obstruction or free fluid. Russell catheter in decompressed bladder. See above discussion. Rodriguez Jeff MD Objective Remarks GENERAL: 60-year-old male. HEENT: Normocephalic. Atraumatic. Pupils 3 mm, reactive, NECK: Supple. Left IJ is clean dry and intact. Orotracheally intubated CHEST: Clear to auscultation, no wheezes rales or rhonchi. CARDIOVASCULAR: RRR. S1, S2 no S4. No m,r ABDOMEN: Mildly distended, soft. No rigidity. Hypoactive bowel sounds. MUSCULOSKELETAL: Distal pulses 2+. Left lower extremity fasciotomy site covered with Sandeep wrap. Medial aspect is sutured. Left foot is tepid. NEUROLOGICAL: Positive gag. Withdraws in both upper and LEs to noxious stimuli. Opens eyes but not following commands Date of Insertion: Jul 11, 2016 Line: Central Venous Catheter Side: Left Location: Internal, Jugular A/P Assessment and Plan Neuro/Psych: Left cerebellar lacunar infarct Right vertebral/distal left MCA and mid right RECORDS MANAGER stenosis Severe Agitated Delirium Alcohol Withdrawal - up to 15 beers daily Risk for spinal cord hypoperfusion Alcohol abuse History of polysubstance abuse including crack cocaine Lumbar drain placement - removed 07/08 Insomnia Propofol at 10-30 mcg/kg/m and as needed fentanyl 50 mcg every hour for sedation/analgesia while intubated -- Goal RASS -2 --Daily sedation vacation On melatonin 5 mg at night as needed for insomnia Daily thiamine 100 mg daily for EtOH use MRI brain 07/10 revealed left cerebellar cystic diffusion region with small punctate areas in the suarez radiata likely embolic. Possible amyloid. MRA head/neck revealed right vertebral 80% short segment stenosis, distal left MCA and mid right RECORDS MANAGER stenosis EEG 07/10 revealed no seizure activity Delirium/Withdraw regimen: --Tizanidine 2mg po BID for pain adjuvant and to help with delirium --Seroquel 25 mg twice a day for delirium/weaning to off --Haldol 5mg iv q4h prn for breakthrough agitation. --Valium 5mg po q8hr for etoh withdraw, start slow taper over through 07/15 --Ativan 1mg iv q15min prn for withdraw symptoms --continue to avoid Precedex for now given recent junctional bradycardia, NSTEMI , and need for continued spinal cord protection with goal systolic blood pressure of 140 to 160 recommended per vascular surgery. -- Okayed with Dr. Long for aspirin 324 mg daily Respiratory: Acute hypoxic and hypercarbic respiratory failure -- PRVC 18/550/0.8/5/40 Vent bundle Bronchodilator therapy every 6 hours and albuterol every 2 hours when needed Head of bed 30 07/12 SAT/SBT approximately 3 hours.. Yesterday minimal due to multiple scans performed Wean FiO2 for goal SPO2 greater than 92% Follow-up a.m. chest x-ray showed small pleural effusions bilaterally/ essentially stable chest x-ray Noted possibly will need bilateral chest tubes if unable to successfully wean. Possible tracheostomy Cardiovascular: Postop day #12 T4 with left lower x-ray fasciotomy secondary to type B aortic dissection with renal/visceral and left lower extreme L perfusion Thoracic endovascular stent with left lower extremity fasciotomy/ compartments with [address] Long Acute type B dissection- secured Type II NSTEMI- Demand Ischemia- resolving Junction bradycardia- resolved. Lactic Acidosis- resolved. Goal SBP > 120 for spinal cord protection -- troponin downtrending. 6.81 -- elevated troponins likely combination of demand ischemia and poor renal clearance -- Cardiology: Dr. Mondragon following. plan for conservative management with myocardial perfusion scan when stable. -- 2d echo: EF 55%, no RWMA. 2-D echo 07/08 repeat EF 60-65%. Mild MR. [facility] dilated. RENO 49 mmHg --Cardiac output currently is 3.8. SVV is 13 As needed labetalol/clonidine for systolic blood pressure greater than 160 My partner added hydralazine overnight. --Use norepinephrine to maintain systolic blood pressure greater than 120 Renal: Acute kidney injury Acute Tubular Necrosis Right and left nephrolithiasis Likely secondary to hypoperfusion of the kidney from dissection, ATN -- FENa 07/07 1.2% consistent with ATN. Urine eos negative. Urine urea ordered -- order renal ultrasound with doppler. Revealed patent renal arteries bilaterally. Tiny 7 mm right renal calculus and 1.5 cm left renal cyst. -- Strict I/Os Russell placement to be maintained --nephrology consult 07/08 appreciated. No indication for dialysis at this point Avoid nephrotoxins drugs BUN/creatinine. Stabilized FEN/GI: Colonic ileus Acute protein calorie malnutrition- mild Non-anion gap metabolic acidosis- resolved. Hyperphosphatemia Hyper-magnesium Hyponatremia History of peptic ulcer disease Hepatitis C -from IV drug use Elevated AST TF: Nepro at goal 40 cc an hour --nutrition consult. Daily BMP --Currently on PhosLo 2668 mg 3 times a day for hyperphosphatemia Protonix for GI prophylaxis. Stephie-Colace twice a day for bowel regimen. MiraLAX twice a day lactulose 4 times daily. KUB revealed 8 cm transverse colon ileus. Positive results with sepsis enema yesterday. CT abdomen/those revealed wall thickening or gallbladder. 2 right midpole no obstructing kidney stones, left circumflex continues on, to semi-bilateral pleural effusions and large amount stool left colon. 2775 cc stools after colonoscopy/GoLYTELY regimen Plan for percutaneous cholecystostomy tube for gallbladder. Not a surgical candidate at this time. Heme/ID: Leukocytosislikely reactive Acute Blood Loss Anemia Thrombocytopenia Daily CBC No infectious etiology suspected this time Daily coags --thrombocytopenia is likely multifactorial from liver disease, consumptive from critical illness and dissection. Blood cultures/sputum/urine ordered 07/11 no growth to date Endocrine: Hyperglycemia of critical illness -- SSI, medium scale, every 6 hours Prophylaxis: GI Prophylaxis Protonix 40 mg IV every 24 DVT Prophylaxis -- SCDs/heparin The patient may receive heparin subcutaneous every 12. Patient may additionally receive aspirin, but not Plavix. Lines: 07/13 -radial arterial line --07/04-07/11 right IJ cortis -- Left IJ CVL 07/11 present Overall impression: Continued slow progress. Increasing urine is encouraging. Carlos Campos MD Jul 16, 2016 13:49
--- NOTE | 2016-07-16 18:12 | HHI.GIFU ---
Subjective Remarks Resting in bed. Awake on CPAP. Appears tired. Nods "yes" when asked if he is having a hard time breathing. Nurse notified. Diffuse abdominal tenderness. Objective Vitals I&O Vital Signs Date Time Temp Pulse Resp B/P Pulse Ox O2 Delivery O2 Flow Rate FiO2 07/16/16 17:04 98 40 07/16/16 16:00 64 07/16/16 14:00 60 07/16/16 12:00 40 07/16/16 12:00 99.2 62 18 159/43 95 07/16/16 12:00 58 07/16/16 11:49 94 40 07/16/16 10:00 56 07/16/16 10:00 97 40 07/16/16 08:00 63 07/16/16 08:00 99.2 63 22 162/41 97 07/16/16 08:00 40 07/16/16 07:00 95 Mechanical Ventilator 40 07/16/16 06:00 63 07/16/16 04:26 94 40 07/16/16 04:00 40 07/16/16 04:00 98.6 54 21 125/36 95 07/16/16 04:00 54 07/16/16 02:00 56 07/16/16 00:42 99 40 07/16/16 00:00 98.3 54 18 144/40 100 07/16/16 00:00 54 07/16/16 00:00 40 07/15/16 22:00 54 07/15/16 20:06 97 40 07/15/16 20:00 97.8 50 20 152/70 100 07/15/16 20:00 50 07/15/16 20:00 40 07/15/16 19:00 97 Mechanical Ventilator 40 I/O 07/15/16 07/15/16 07/15/16 07/16/16 07/16/16 07/16/16 07:00 15:00 23:00 07:00 15:00 23:00 Intake Total 4392 ml 768 ml 840 ml 986 ml Output Total 2200 ml 945 ml 440 ml 690 ml Balance 2192 ml -177 ml 400 ml 296 ml IV Total 392 ml 552 ml 387 ml 552 ml Tube Feeding 4000 ml 96 ml 333 ml 314 ml Other 120 ml 120 ml 120 ml Output Urine Total 425 ml 875 ml 425 ml 600 ml Stool Total 1775 ml 25 ml 75 ml Drainage Total 45 ml 15 ml 15 ml # Bowel Movements 1 1 Laboratory Laboratory Tests Test 07/16/16 06:00 White Blood Count 18.5 Red Blood Count 2.74 Hemoglobin 8.7 Hematocrit 25.0 Mean Corpuscular Volume 91.5 Mean Corpuscular Hemoglobin 31.6 Mean Corpuscular Hemoglobin 34.6 Concent Red Cell Distribution Width 13.6 Platelet Count 356 Mean Platelet Volume 7.8 Neutrophils (%) (Auto) 82.0 Lymphocytes (%) (Auto) 3.6 Monocytes (%) (Auto) 10.9 Eosinophils (%) (Auto) 2.6 Basophils (%) (Auto) 0.9 Neutrophils # (Auto) 15.2 Lymphocytes # (Auto) 0.7 Monocytes # (Auto) 2.0 Eosinophils # (Auto) 0.5 Basophils # (Auto) 0.2 CBC Comment AUTO DIFF Differential Total Cells 100 Counted Neutrophils % (Manual) 87 Band Neutrophils % 4 Lymphocytes % 2 Monocytes % 2 Eosinophils % 4 Neutrophils # (Manual) 17.0 Myelocytes 1 Differential Comment FINAL DIFF MANUAL Platelet Estimate NORMAL Platelet Morphology Comment NORMAL Sodium Level 139 Potassium Level 4.5 Chloride Level 104 Carbon Dioxide Level 21.2 Anion Gap 14 Blood Urea Nitrogen 115 Creatinine 5.64 Estimat Glomerular Filtration 10 Rate Random Glucose 126 Calcium Level 8.2 Phosphorus Level 6.3 Magnesium Level 3.4 Total Bilirubin 1.7 Aspartate Amino Transf 70 (AST/SGOT) Alanine Aminotransferase 28 (ALT/SGPT) Alkaline Phosphatase 174 Total Protein 5.8 Albumin 1.8 Date/Time Procedure Status Source Growth 07/15/16 16:33 Gram Stain - Final Resulted Abscess Abdomen 07/15/16 16:33 Wound Culture - Preliminary Resulted Abscess Abdomen NO GROWTH IN 24 HOURS. Imaging Last Impressions Chest X-Ray 07/16/16 0600 Signed Impressions: Service Date/Time: Saturday, July 16, 2016 03:25 - CONCLUSION: Unchanged bibasilar infiltrates and effusions. Joe Appiah Jr., MD Abdomen X-Ray 07/15/16 0600 Signed Impressions: Service Date/Time: Friday, July 15, 2016 04:41 - CONCLUSION: No dilated bowel to suggest an obstruction. Joe Appiah Jr., MD Percutaneous Cholangiogram 07/15/16 0000 Signed Impressions: Service Date/Time: Friday, July 15, 2016 15:38 - CONCLUSION: Uncomplicated percutaneous cholecystostomy as above. Aleksey Mendez MD Gall Bladder Ultrasound 07/14/16 0000 Signed Impressions: Service Date/Time: Thursday, July 14, 2016 11:36 - CONCLUSION: Abnormal gallbladder as described above. Cholecystitis would be consideration. The patient is only minimally tender around the gallbladder. Donis Hernandez MD FACR Abdomen/Pelvis CT 07/13/16 0000 Signed Impressions: Service Date/Time: Wednesday, July 13, 2016 17:29 - CONCLUSION: 1. Abnormal appearance of the gallbladder with wall thickening and possible pericholecystic fluid. No calcified stones. Recommend hepatobiliary tract scan to evaluate for acalculus cholecystitis. 2. Bilateral lower lung consolidation and bilateral pleural effusions. 3. Moderate amount of stool in the left colon. 4. Bilateral nonobstructing renal stones. Joe De Leon MD Neck Magnetic Resonance Angiography 07/11/16 0000 Signed Impressions: Service Date/Time: June 14:29 - CONCLUSION: 1. No evidence of carotid stenosis. 2. Short segment high-grade stenosis involving the mid right vertebral artery greater than 80 with a patent left vertebral artery Abhijeet Salinas MD Head Magnetic Resonance Angiography 07/11/16 0000 Signed Impressions: Service Date/Time: June 14:29 - CONCLUSION: 1. Evidence of atherosclerotic disease with focal distal left MCA branch stenosis and focal mid right [employer] stenosis. 2. No proximal high grade stenosis or aneurysm. Bladimir Gasca MD Brain MRI 07/10/16 0000 Signed Impressions: Service Date/Time: Sunday, July 10, 2016 15:03 - CONCLUSION: 1. Small punctate infarcts involving the left cerebellar hemisphere and deep white matter bilaterally in this patient with a background of amyloid angiopathy. No acute hemorrhage is seen. Abhijeet Salinas MD Renal Ultrasound 07/08/16 0000 Signed Impressions: Service Date/Time: Friday, July 08, 2016 17:16 - CONCLUSION: 1. Resistive indices could not be obtained on the right side into the patient's body habitus and shadowing bowel gas. Left renal artery resistive indices are within normal limits. 2. No significant abdominal aortic aneurysm identified status post repair. 3. Probable 7 mm nonobstructing midpole right renal calculus. 4. Tiny left lower pole cyst measuring 1.5 cm. Hamlet Vinson MD Aorta CTA 07/04/16 0000 Signed Impressions: Service Date/Time: June 19:53 - CONCLUSION: 1. Extensive aortic dissection extending from the proximal transverse aorta just distal to the origin of the left subclavian artery. Dissection extends distally through both superficial femoral arteries. 2. Occlusion of the right renal artery with absent perfusion of the right kidney. Dissection of the left renal artery with absent perfusion of the anterior left kidney. 3. 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 4. Occlusion of left external iliac artery and right internal iliac artery. 5. ET tube in satisfactory position. Dependent consolidation in both lungs. Probable mild liver cirrhosis. No obstruction or free fluid. Russell catheter in decompressed bladder. See above discussion. Rodriguez Jeff MD Physical Exam HEENT: PERRLA; normocephalic; atraumatic CHEST: Resp. shallow/even. Diminished. On CPAP CARDIAC: SB ABDOMEN: Distended, diffuse tenderness Bowel sounds hypoactive. Cholecystomy tube. EXTREMITIES: No edema. ASA wrap in place on LLE SKIN: Normal; no rash; no jaundice. PROGRAM ADVISOR: Awake, lethargic. Assessment and Plan Plan ASSESSMENT: - Colonic Ileus. Abdomen/Pelvis CT 07/13/16 1. Abnormal appearance of the gallbladder with wall thickening and possible pericholecystic fluid. No calcified stones. Recommend hepatobiliary tract scan to evaluate for a calculus cholecystitis. 2. Bilateral lower lung consolidation and bilateral pleural effusions. 3. Moderate amount of stool in the left colon. 4. Bilateral nonobstructing renal stones. S/P Relistor. S/P Decompressive colonoscopy ()-----> 1. Full of stools, scope advanced to mid transverse colon. Full of stool. Decompressed 2. Circumferential abnormal mucosa was found in the sigmoid colon ; The mucosa was erythematous, friable, ulcerated and had granularity; biopsy was performed using cold forceps, 3. Retroflexed views revealed internal hemorrhoids, 4. Retroflexed views revealed medium internal hemorrhoids, 5. Revealed external hemorrhoids. S/P Golytely, SSE. + BM Abdomen X-Ray (07/15/16)---> No dilated bowel to suggest an obstruction. He is receiving fentanyl. Of note, he as bradycardia at times and therefore would avoid neostigmine. + BM. TF. Reglan. Lactulose. Miralax. - Elevated LFTs. Pt has hx of cirrhosis/HCV according to chart. S/P Cholecystomy tube placement (07/15). - Acute type B aortic dissection, S/P thoracic endovascular stent, intravascular ultrasound of the aorta, and left lower extremity fasciotomies (four compartment, two incisions) (07/04/16) with Dr. Long. - Small embolic strokes with small chronic microscopic hemorrhages in the brain , possible amyloid angiopathy per neurology. - Acute respiratory failure, Vent per [facility]. - Type II STEMI (demand ischemia) - Acute kidney injury with acute tubular necrosis and electrolyte abnormalities. Renal following. - Protein calorie malnutrition. Photographic Editor recommends Nepro, Rec goal rate @ 40ml/hr. ? PEG tube in future. - Anemia. No acute blood loss. - Thrombocytopenia. IMPROVED. - Leukocytosis, persistent. WBC 18.5 Afebrile. PLAN: - TF as tolerated - COnt. bowel regimen- lactulose, pericolace, miralax - KUB in am - S/P Relistor (07/13) - S/P Decompressive colonoscopy (07/14) - S/P SSE/GOlytely (07/14) - Supportive care - Further recommendations to follow based on results of above - Patient seen and examined by Dr. Roberto and myself and this note is written on his behalf Yuliana Whitten Jul 16, 2016 18:12
[2016-07-16] MEDS: MELATONIN 5 MG TAB PO SCH (20:49)
[2016-07-17] VITALS (18 sets, daily range): BP systolic 122–160; BP diastolic 59–70; PULSE 51–63; RESP 13–25; TEMP 98.6–100.1; O2SAT 91–100
[2016-07-17] MEDS: RESP: ALBUTEROL 2.5 MG/IPRATROPIUM 0.5 MG NEB (SCH) INH ×4 (03:40→19:31)
[2016-07-17] MEDS: PROPOFOL 1000 MG/100 ML INJ 100 ML IV SCH ×2 (03:54→20:05)
[2016-07-17] MEDS: CHLORHEXIDINE GLUCONATE 2 % 1 PACK (2 CLOTHS) TOP SCH ×2 (03:54→19:43)
[2016-07-17] MEDS: PIPERACIL-TAZO 2.25 GM PREMIX 50 ML IV SCH ×2 (05:10→18:43)
[2016-07-17] MEDS: ARTIFICIAL TEARS OPTH SOLN 15 ML BTL EACH EYE SCH ×3 (05:10→20:03)
[2016-07-17] MEDS: BUMETANIDE INJ 1 MG/4 ML VIAL IV PUSH SCH ×3 (05:11→20:01)
[2016-07-17] MEDS: METOCLOPRAMIDE HCL 10 MG/2 ML VIAL IV PUSH SCH ×3 (05:11→20:03)
[2016-07-17] MEDS: INSULIN NovoLIN REGULAR SUPPLEMENTAL SCALE SQ SCH ×4 (05:12→18:43)
[2016-07-17 05:34] LABS: BICARBONATE 25.2 MEQ/L (21.0-32.0); POTASSIUM 4.2 MEQ/L (3.5-5.1)
--- NOTE | 2016-07-17 06:17 | RADRPT ---
EXAM DATE/TIME: 07/17/2016 05:24 [place] COMPARISON: ABDOMEN KUB ONLY, July 15, 2016, 4:41. INDICATIONS : Abdominal distention. MEDICAL HISTORY : Aneurysm, abdominal. Hepatitis C. Cardiovascular disease. Hypertension SURGICAL HISTORY : Abdominal aortic aneurysm repair ENCOUNTER: Subsequent ACUITY: 1 week PAIN SCORE: Non-responsive. LOCATION: Bilateral abdomen FINDINGS: 2 supine views of the abdomen were performed. The abdominal bowel gas pattern is normal. No abnorma l masses, calcifications, or organomegaly is seen. The osseous structures are unremarkable. A cholec ystostomy tube is noted. Nasogastric tube is within a decompressed stomach. CONCLUSION: Normal bowel gas pattern Joe Appiah Jr., MD on July 17, 2016 at 6:14 Board Certified Radiologist. This report was verified electronically.
[2016-07-17] MEDS: CHLORHEXIDINE 0.12% (ORAL KIT) 15 ML CUP MT SCH ×2 (08:53→20:00)
[2016-07-17] MEDS: DOBUTamine 250 MG/D5W 250 ML PREMIX DRIP IV SCH ×2 (08:53→12:10)
[2016-07-17] MEDS: SODIUM CHLORIDE 0.9% FLUSH 10 ML FLUSH IVF SCH (09:31)
[2016-07-17] MEDS: PANTOPRAZOLE SODIUM 40 MG VIAL IV SCH (09:31)
[2016-07-17] MEDS: HEPARIN SODIUM - SQ 10,000 UNITS/ML VIAL SQ SCH ×2 (09:31→20:01)
[2016-07-17] MEDS: LACTULOSE SYRUP 20 GM/30 ML CUP PO SCH ×4 (09:32→20:02)
[2016-07-17] MEDS: CALCIUM ACETATE 667 MG CAP PO SCH ×3 (09:32→18:44)
[2016-07-17] MEDS: POLYETHYLENE GLYCOL 17 GM PKG OG-TUBE SCH ×2 (09:32→20:02)
[2016-07-17] MEDS: DOCUSATE SODIUM 50 MG/SENNA 8.6 MG TAB PO SCH ×2 (09:32→20:03)
[2016-07-17] MEDS: MULTIVITAMIN TAB PO SCH (09:32)
[2016-07-17] MEDS: QUEtiapine FUMARATE 25 MG TAB PO SCH ×2 (09:32→20:02)
[2016-07-17] MEDS: THIAMINE HCL 100 MG TAB PO SCH (09:32)
[2016-07-17] MEDS: ASPIRIN 81 MG CHEW TAB CHEW SCH (09:32)
--- NOTE | 2016-07-17 14:59 | PD.CONS ---
Consult Service Palliative Care . Consult Requested By Dr. Hamlet Long . Primary Care Physician Unknown . Reason for Consultation a. To assist with evaluation and management of symptoms including: pain, dyspnea b. To assist medical decision maker(s) with: better understanding of current medical conditions; weighing benefits/burdens of medical treatment options; making medical treatment decisions. . HPI History of Present Illness Patient was emergently transferred to [facility] from an outside facility on 07/04/16 for management of acute B dissection. Apparently the patient had been complaining of searing back pain all day and was taken to the emergency department for evaluation. CT of the chest was indicative of a type B dissection. The patient was extubated prior to being transferred to [facility]. On arrival the patient was in a junctional bradycardia with ST changes consistent with ischemia. The patient was sent for a Stat repeat CT aortogram of the chest abdomen and pelvis to investigate the extent of the dissection.The CT aortogram again showed a type B dissection with the celiac artery being significantly compressed and possibly compromising flow from the dissection flap. The right kidney appears to be perfused off the false lumen and not the true lumen, and there is no contrast going down the left femoral artery. Patient returned to the intensive care unit. He was placed a nicardipine drip to maintain systolic blood pressure <110. An EKG demonstrated significant ST depressions in the inferior leads as well as the far lateral leads consistent with subendocardial ischemia. Anticipating emergent surgery, Dr. Rich placed a lumbar drain for spinal protection. Patient was subsequently taken to the OR, and preformed a TEVAR and LLE fasciotomy. POD #1 course is complicated by perioperative NSTEMI secondary to demand ischemia. Patient was extubated on POD #2 (07/06/16). Patient remains encephalopathic. On volume resuscitation and pressors for maximization of spinal cord perfusion. Patient having hematuria and decreased urine output, creatinine rising likely secondary to ATN. Was reintubated overnight secondary to worsening mental status (possibly delirium versus EtOH withdraw) and hypoxia. Cardiology was consulted, recommendations were made for conservative management at this time. Serial echocardiograms showing well-preserved left ventricular systolic function. No evidence of ACS and no new cardiac issues noted. Nephrology was consulted on 07/08/16 for evaluation of acute renal failure. Patient's creatinine level has been normal prior to this hospitalization. The patient showed evidence of renal insufficiency on admission. Creatinine has continued to increase, currently 4.75 today with marginal urine output. Per nephrology, patient likely sustained severe ischemic injuries to both kidneys secondary to dissection involving renal arteries Patient remains encephalopathic. Neurology following. = MRI brain on 07/10/16 revealed left cerebellar cystic diffusion region with small punctate areas in the suarez radiata likely embolic, possible amyloid. = MRA head/neck revealed right vertebral 80% short segment stenosis, distal left MCA and mid right HORTICULTURALIST stenosis = EEG 06/2916 revealed no seizure activity Patient is passing liquid stool. He continues to have abdominal distention, tender to palpation. KUB on 07/13/16 revealed nonspecific dilatation of the colon. Of note, no obstruction was noted on CTA on 07/04/16. The patient is on fentanyl. Gastroenterology was consulted for further evaluation and recommendations. Patient had a colonoscopy with biopsy the following day with Dr. Simon - recommendations were made for a soapsuds enema. Biopsy findings are nonspecific, but may be seen in inflammatory bowel disease, ischemia, in infectious condition, and in acute self-limited colitis. On 07/15/16: Patient remains afebrile. He is hypertensive and bradycardic plan for percutaneous cholecystostomy tube today. Patient remains sedated, orotracheally intubated on CPAP on exam. FiO2 40%, PEEP 5, pressure support 15. Nephrology, gastroenterology, vascular surgery, cardiology and critical care continue to follow this patient. Family has stated the patient would not want extraordinary measures continued if he will not regain his previous level of functioning, stating the patient would NOT consent to dialysis if it is indicated. Palliative Care was consulted to assist with symptom management and to discuss with the family the benefits and burdens of her current illnesses and the options regarding future care. . Function/Cognitive Trajectory Patient has a history of polysubstance abuse. Further information pending family meeting on 07/18/16 at 11 AM. . Review of Systems ROS Limitations: Clinical Condition (patient is unable to participate in ROS. Information obtained through review of EMR and report), Intubated, Altered Mental Status Constitutional: COMPLAINS OF: Pain (presented to ED for evaluation of searing back pain), Generalized weakness Ears, nose, mouth, throat: DENIES: Epistaxis Respiratory: COMPLAINS OF: Shortness of breath Cardiovascular: COMPLAINS OF: Lower Extremity Edema Genitourinary: COMPLAINS OF: Hematuria Hematologic/Lymphatics: COMPLAINS OF: Bruising, History of transfusions ( platelet transfusion) Neurologic: COMPLAINS OF: Localized weakness Psychiatric: COMPLAINS OF: Anxiety, Confusion Past Family Social History Coded Allergies: No Known Allergies (Verified , 01/18/07) Past Medical History HTN CAD PUD CHF Hepatitis C COPD 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 Past Surgical History S/P TEVAR this admission Left lower extremity fasciotomy . Reported Medications Unavailable . Current Medications Medications (Trade) Dose Ordered Sig/Sascha Route Start Time Stop Time Status Last Admin (Peridex 0.12% Liq) 15 ml BID@08,20 MT 07/05/16 08:00 07/17/16 08:53 (D50w (Vial) Inj) 25 ml UNSCH PRN IV PUSH 07/04/16 22:45 (NovoLIN R SUPPLEMENTAL SCALE) 1 Q6HR SQ 07/05/16 00:00 07/17/16 05:12 (Vitamin B1) 100 mg DAILY PO 07/08/16 09:00 07/17/16 09:32 (Theragran) 1 tab DAILY PO 07/05/16 09:00 07/17/16 09:32 (NS Flush) 2 ml UNSCH PRN IV FLUSH 07/04/16 22:45 (Tylenol) 650 mg Q6H PRN PO 07/04/16 22:45 07/11/16 04:32 (Protonix Inj) 40 mg DAILY IV 07/05/16 09:00 07/17/16 09:31 (Stephie-Colace) 2 tab BID PO 07/05/16 09:00 07/17/16 09:32 Miscellaneous Information 1 Q361D XX 07/04/16 22:45 (Chlorhexidine 2% Cloth) Taper DAILY@04 TOP 07/05/16 04:00 07/01/17 03:59 07/13/16 04:00 Chlorhexidine Gluconate 3 pack 3 pack UNSCH PRN TOP 07/04/16 22:45 (Levophed-Dextrose Drip) 250 ml @ 0 mls/hr TITRATE IV 07/05/16 18:30 07/09/16 21:06 (Haldol Inj) 5 mg Q4H PRN IV 07/06/16 13:30 07/06/16 14:04 (Ativan Inj) 1 mg Q15M PRN IV PUSH 07/06/16 13:30 07/06/16 14:05 (Melatonin) 5 mg HS PO 07/06/16 21:00 07/16/16 20:49 Fentanyl Citrate 25 mcg 25 mcg Q30M PRN IV PUSH 07/06/16 13:45 07/14/16 21:59 (Diprivan 1000 Mg/100ml Inj) 100 ml @ 0 mls/hr TITRATE IV 07/06/16 22:45 07/17/16 03:54 (Phoslo) 2,668 mg TID PO 07/07/16 09:00 07/17/16 09:32 (Pill Splitter) 1 ea UNSCH PRN OTHER 07/07/16 07:30 (Zanaflex) 2 mg Q12H PO 07/10/16 02:00 07/17/16 01:55 (Miralax) 17 gm BID OG-TUBE 07/10/16 09:00 07/16/16 20:48 (Tears Naturale Opth Soln) 1 drop Q8HR EACH EYE 07/10/16 14:00 07/17/16 05:10 (Lactulose Liq) 30 ml QID PO 07/11/16 09:00 07/17/16 09:32 (NS Flush) DAILY IVF 07/12/16 09:00 07/17/16 09:31 (NS Flush) UNSCH PRN IVF 07/11/16 16:45 (Aspirin Chew) 324 mg DAILY CHEW 07/11/16 17:30 07/17/16 09:32 (Glycerin Adult Supp) 2 gm BID PRN RECTAL 07/12/16 06:45 07/12/16 09:58 (SEROquel) 25 mg BID PO 07/12/16 09:00 07/17/16 09:32 (Trandate Inj) 10 mg Q1HR PRN IV PUSH 07/13/16 10:00 07/14/16 09:05 (Catapres) 0.1 mg Q6H PRN PO 07/13/16 10:00 07/14/16 08:48 (Reglan Inj) 5 mg Q8HR IV PUSH 07/13/16 14:00 07/17/16 05:11 (Apresoline Inj) 20 mg Q6H PRN IV 07/14/16 23:15 07/15/16 09:05 (fentaNYL INJ) 50 mcg Q1H PRN IV PUSH 07/15/16 09:00 Heparin Sodium (Porcine) 5000 units 5,000 units Q12HR SQ 07/15/16 21:00 07/17/16 09:31 Piperacillin Sod/ Tazobactam Sod 50 ml @ 100 mls/hr Q12H IV 07/15/16 18:00 07/17/16 05:10 Sodium Chloride 1,000 ml @ 42 mls/hr [id number] IV 07/15/16 19:15 07/16/16 08:53 (DOBUTamine PREMIX DRIP) 250 ml @ 15.6 mls/hr Q16H2M IV 07/16/16 05:00 07/16/16 05:15 (Bumex Inj) 2 mg Q8HR IV PUSH 07/16/16 14:00 07/17/16 05:11 . Family History History of diabetes on mother's side of the family . Substance Use Tobacco: Smokes 1.5 daily for 45+ years Alcohol: EtOH abuse Prescription med abuse: Illicits: Crack cocaine . Psychosocial History Patient is single. 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 History of polysubstance abuse. Further information pending family meeting on 07/18/16. . Spiritual/Cultural Factors Adventist nicolas . Family/friends goals: Pending family meeting 07/18/16 . Physical Exam Vital Signs Date Time Temp Pulse Resp B/P Pulse Ox O2 Delivery O2 Flow Rate FiO2 07/17/16 12:00 40 07/17/16 12:00 98.6 51 13 137/64 92 07/17/16 12:00 51 07/17/16 11:17 100 40 07/17/16 10:00 54 07/17/16 08:07 40 07/17/16 08:07 95 40 07/17/16 08:00 40 07/17/16 08:00 99.6 61 17 122/59 96 Arterial Line 07/17/16 08:00 61 07/17/16 07:00 95 Mechanical Ventilator 40 07/17/16 06:00 54 07/17/16 04:02 96 40 07/17/16 04:00 99.5 58 22 141/64 95 07/17/16 04:00 58 07/17/16 04:00 40 07/17/16 02:00 62 07/17/16 00:00 100.1 63 20 94 146/65 07/17/16 00:00 40 07/17/16 00:00 63 07/16/16 23:53 93 40 07/16/16 22:00 62 07/16/16 20:00 100.5 64 21 95 205/84 07/16/16 20:00 40 07/16/16 20:00 64 07/16/16 20:00 95 Mechanical Ventilator 40 07/16/16 19:57 94 40 07/16/16 18:36 40 07/16/16 18:00 67 07/16/16 17:04 98 40 07/16/16 16:00 40 07/16/16 16:00 99.6 60 21 157/88 95 07/16/16 16:00 64 07/16/16 14:00 60 . 07/16/16 07/17/16 19:00 07:00 Intake Total 986 ml 1991 ml Output Total 690 ml 2220 ml Balance 296 ml -229 ml IV Total 552 ml 969 ml Tube Feeding 314 ml 702 ml Other 120 ml 320 ml Output Urine Total 600 ml 1700 ml Stool Total 75 ml 500 ml Drainage Total 15 ml 20 ml . Exam CONSTITUTIONAL/GENERAL: This is an adequately nourished patient, orotracheally intubated and sedated on CPAP TUBES/LINES/DRAINS: Left IJ CVL, ETT, OGT, dignishield, Russell catheter, SCD 1, soft restraints 2, cholecystostomy SKIN: Incisions on left lower extremity without S3/S of infection Skin temperature appropriate. Not diaphoretic. HEAD: Atraumatic. Normocephalic. EYES: Pupils equal and round and reactive. Extraocular motions intact. No scleral icterus. No injection or drainage. Fundi not examined. ENT: Nose without bleeding or purulent drainage. Membranes dry NECK: Trachea midline. Supple, nontender. No palpable thyroid enlargement or nodularity. CARDIOVASCULAR: Regular rate and rhythm without murmurs, gallops, or rubs. No JVD. Peripheral pulses symmetric. RESPIRATORY/CHEST: Symmetric, unlabored respirations on CPAP. Scattered rhonchi GASTROINTESTINAL: Abdomen distended, firm. GENITOURINARY: Without palpable bladder distension. Russell catheter in place. MUSCULOSKELETAL: Trace edema in bilateral upper and lower extremities LYMPHATICS: No palpable cervical or supraclavicular adenopathy. NEUROLOGICAL: Sedated PSYCHIATRIC: Unable to assess given patient's clinical condition excellent. Diagnostic Tests Laboratory Laboratory Tests Test 07/15/16 07/16/16 07/17/16 04:15 06:00 04:55 White Blood Count 15.8 TH/MM3 18.5 TH/MM3 (4.0-11.0) (4.0-11.0) Red Blood Count 2.71 MIL/MM3 2.74 MIL/MM3 (4.50-5.90) (4.50-5.90) Hemoglobin 8.5 GM/DL 8.7 GM/DL (13.0-17.0) (13.0-17.0) Hematocrit 25.0 % 25.0 % (39.0-51.0) (39.0-51.0) Mean Corpuscular Volume 92.2 FL 91.5 FL (80.0-100.0) (80.0-100.0) Mean Corpuscular Hemoglobin 31.2 PG 31.6 PG (27.0-34.0) (27.0-34.0) Mean Corpuscular Hemoglobin 33.8 % 34.6 % Concent (32.0-36.0) (32.0-36.0) Red Cell Distribution Width 13.8 % 13.6 % (11.6-17.2) (11.6-17.2) Platelet Count 306 TH/MM3 356 TH/MM3 (150-450) (150-450) Mean Platelet Volume 8.3 FL 7.8 FL (7.0-11.0) (7.0-11.0) Neutrophils (%) (Auto) 83.0 % 82.0 % (16.0-70.0) (16.0-70.0) Lymphocytes (%) (Auto) 2.4 % 3.6 % (9.0-44.0) (9.0-44.0) Monocytes (%) (Auto) 12.0 % 10.9 % (0.0-8.0) (0.0-8.0) Eosinophils (%) (Auto) 2.5 % (0.0-4.0) 2.6 % (0.0-4.0) Basophils (%) (Auto) 0.1 % (0.0-2.0) 0.9 % (0.0-2.0) Neutrophils # (Auto) 13.1 TH/MM3 15.2 TH/MM3 (1.8-7.7) (1.8-7.7) Lymphocytes # (Auto) 0.4 TH/MM3 0.7 TH/MM3 (1.0-4.8) (1.0-4.8) Monocytes # (Auto) 1.9 TH/MM3 2.0 TH/MM3 (0-0.9) (0-0.9) Eosinophils # (Auto) 0.4 TH/MM3 0.5 TH/MM3 (0-0.4) (0-0.4) Basophils # (Auto) 0.0 TH/MM3 0.2 TH/MM3 (0-0.2) (0-0.2) CBC Comment AUTO DIFF AUTO DIFF Differential Total Cells 100 100 Counted Neutrophils % (Manual) 76 % (16-70) 87 % (16-70) Band Neutrophils % 6 % (0-6) 4 % (0-6) Lymphocytes % 4 % (9-44) 2 % (9-44) Monocytes % 9 % (0-8) 2 % (0-8) Eosinophils % 3 % (0-4) 4 % (0-4) Basophils % 1 % (0-2) Neutrophils # (Manual) 13.1 TH/MM3 17.0 TH/MM3 (1.8-7.7) (1.8-7.7) Myelocytes 1 % (0-0) 1 % (0-0) Differential Comment FINAL DIFF FINAL DIFF MANUAL MANUAL Platelet Estimate NORMAL NORMAL (NORMAL) (NORMAL) Platelet Morphology Comment NORMAL NORMAL (NORMAL) (NORMAL) Red Cell Morphology Comment NORMAL (NORMAL) Prothrombin Time 10.8 SEC (9.8-11.6) Prothromb Time International 1.0 RATIO Ratio Activated Partial 31.5 SEC Thromboplast Time (24.3-30.1) Sodium Level 140 MEQ/L 139 MEQ/L 142 MEQ/L (136-145) (136-145) (136-145) Potassium Level 4.7 MEQ/L 4.5 MEQ/L 4.2 MEQ/L (3.5-5.1) (3.5-5.1) (3.5-5.1) Chloride Level 103 MEQ/L 104 MEQ/L 104 MEQ/L (98-107) (98-107) (98-107) Carbon Dioxide Level 22.7 MEQ/L 21.2 MEQ/L 25.2 MEQ/L (21.0-32.0) (21.0-32.0) (21.0-32.0) Anion Gap 14 MEQ/L (5-15) 14 MEQ/L (5-15) 13 MEQ/L (5-15) Blood Urea Nitrogen 115 MG/DL 115 MG/DL 118 MG/DL (7-18) (7-18) (7-18) Creatinine 5.71 MG/DL 5.64 MG/DL 5.66 MG/DL (0.60-1.30) (0.60-1.30) (0.60-1.30) Estimat Glomerular Filtration 10 ML/MIN (>89) 10 ML/MIN (>89) 10 ML/MIN (>89) Rate Random Glucose 97 MG/DL 126 MG/DL 146 MG/DL (74-106) (74-106) (74-106) Calcium Level 8.4 MG/DL 8.2 MG/DL 7.9 MG/DL (8.5-10.1) (8.5-10.1) (8.5-10.1) Phosphorus Level 6.8 MG/DL 6.3 MG/DL 6.0 MG/DL (2.5-4.9) (2.5-4.9) (2.5-4.9) Magnesium Level 3.6 MG/DL 3.4 MG/DL (1.5-2.5) (1.5-2.5) Total Bilirubin 1.8 MG/DL 1.7 MG/DL (0.2-1.0) (0.2-1.0) Aspartate Amino Transf 62 U/L (15-37) 70 U/L (15-37) (AST/SGOT) Alanine Aminotransferase 27 U/L (12-78) 28 U/L (12-78) (ALT/SGPT) Alkaline Phosphatase 151 U/L 174 U/L (45-117) (45-117) Total Protein 6.0 GM/DL 5.8 GM/DL (6.4-8.2) (6.4-8.2) Albumin 1.9 GM/DL 1.8 GM/DL 1.8 GM/DL (3.4-5.0) (3.4-5.0) (3.4-5.0) . Result Diagram: 07/16/16 0600 07/17/16 0455 Microbiology Microbiology Date/Time Procedure Status Source Growth 07/15/16 16:33 Gram Stain - Final Resulted Abscess Abdomen 07/15/16 16:33 Wound Culture - Preliminary Resulted Abscess Abdomen NO GROWTH IN 48 HOURS. . Imaging Last 72 hours Impressions Abdomen X-Ray 07/17/16 06 Signed Impressions: Service Date/Time: Sunday, July 17, 2016 05:24 - CONCLUSION: Normal bowel gas pattern Joe Appiah Jr., MD Chest X-Ray 07/16/16 0600 Signed Impressions: Service Date/Time: Saturday, July 16, 2016 03:25 - CONCLUSION: Unchanged bibasilar infiltrates and effusions. Joe Appiah Jr., MD Chest X-Ray 07/15/16 0600 Signed Impressions: Service Date/Time: Friday, July 15, 2016 04:38 - CONCLUSION: Some worsening of the bilateral pulmonary infiltrates. Joe Appiah Jr., MD Abdomen X-Ray 07/15/16 0600 Signed Impressions: Service Date/Time: Friday, July 15, 2016 04:41 - CONCLUSION: No dilated bowel to suggest an obstruction. Joe Appiah Jr., MD Percutaneous Cholangiogram 07/15/16 0000 Signed Impressions: Service Date/Time: Friday, July 15, 2016 15:38 - CONCLUSION: Uncomplicated percutaneous cholecystostomy as above. Aleksey Mendez MD . Procedures 07/04/16: Right radial arterial line placement 07/04/16: Lumbar drain placement 07/04/16: Right IJ cortis placement 07/04/16: TEVAR and LLE fasciotomy. 07/06/16: Extubation 07/07/16: Reintubation 07/08/16: Platelet transfusion 07/08/16: Lumbar drain removed 07/11/16: Right IJ cortis removed 07/11/16: Left IJ CVL placement . Patient/Family Conference Present at Family Conference: Spoke with patient's sister and brother via telephone. Tentative family meeting scheduled for 08/17/16 at 11 AM. . Family Conference Location: Telephone Issues Discussed: * Palliative care role, purpose, approach * Additional medical, psychosocial, and spiritual history * Patients general health, functional status, and cognitive changes in the months leading up to the current hospitalization * Patient/family understanding of the current medical problems * Patient/family understanding of prognosis * Patients goals of care as best understood from advance directives and/or conversations and/or values * Current medical treatment options and benefits/burdens of those options * Likely scenarios comparing ongoing aggressive care with a transition to comfort measures only * Questions answered to the best of my ability * Palliative care contact information provided . 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 On exam patient tolerating CPAPFiO2 40%, PEEP 5, pressure support 15. Pertinent Non-Medical Issues Psychosocial: Pending family meeting Spiritual: Adventist nicolas Legal: Per [place] statutes, and the absence of written advanced directives healthcare proxy decision making would fall to the patient's mother. If the patient's mother were to opt out of healthcare proxy role, decision making would fall to the patient's 2 siblings. Ethical issues impacting care: No known ethical issues impacting care at this time . Important Contacts Nathalia Izquierdo, mother: [phone] brother (Luis) [phone] [id number] (Chanda) [phone] Sister (Olga) [phone] . Prognosis Patient is a 60 year old man who was admitted with a type B aortic dissection. He is currently critically ill status post with TAVER and LLE fasciotomy. His past medical history is significant for polysubstance abuse (EtOH/crack cocaine) , HTN, CAD, COPD, hepatitis C/cirrhosis as well as medical noncompliance The patient currently remains orotracheally intubated and sedated. BUBBA - patient likely sustained severe ischemic injuries to both kidneys secondary to dissection involving renal arteries. It is certainly possible that this patient will be successfully extubated and upcoming days, eventually being stable enough to be discharged to SNF. However given the patient's past medical history, noncompliance, and this recent acute event, the patient has a strong probability into new decline and/or complications. . Code Status: Alternative Code (intubations and medications only) Plan * ALTERNATE CODE * Decision-making: Per [place] statutes, health care proxy decision making would fall to the patient's mother. If she was unwilling to participate in the role of health care proxy decision-making, it would then fall to the patient's to siblings. However, there is documentation that was completed 07/07/16 and designates the patient's brother (Luis) as the healthcare proxy. This will need clarification-pending family meeting tomorrow 07/18/16. * Goals: Pending family meeting * Per nursing report, the family requested a palliative care consult to care of clarify medical treatment goals. They have stated the patient would not want dialysis if it is indicated. They have stated the patient would not want extra ordinary measures and vain. * Discussed with Dr. Meek and Dr. Castillo * Tentative family meeting tomorrow 07/18/16 at 11 AM * Spoke to patient's sister (Olga) and brother (Luis) be telephoned to introduce palliative care, contact information provided. * Palliative care will continue to follow this patient throughout his hospitalization to establish trust, assist with symptom management and clarification of medical treatment goals. . Thank you for the opportunity to participate in the care of Mr. Trujillo. . Attestation To help prompt me to consider important information that might be impacting today's encounter and assessment, information from prior notes written by myself or my colleagues may have been "brought forward" into today's note. My signature on this note, however, is an attestation that I personally performed the exam, history, and/or decision-making noted today, and, unless otherwise indicated, the interactions with patient, family, and staff as well as the review of records all occurred today. I also attest that the listed assessment and stated plan reflect my best clinical judgment today based on the combination of historical information, prior notes, and today's exam/ interactions. When time spent is documented, it refers only to time spent today by the signer, or if indicated, combined time spent today by collaborating physician/nurse practitioner. . Vikki Liu Jul 17, 2016 14:14
--- NOTE | 2016-07-17 16:57 | HHI.NPPN ---
Subjective History of Present Illness This patient is a 60-year-old male apparently with a history of previous alcohol and crack usage also has a history of hepatitis C, coronary disease and hypertension as well as medical noncompliance. Patient was admitted with a type B aortic dissection. CTA thoracic aorta and abdominal aorta performed July 04, 2016 revealed occluded right renal artery as well as perfusion only to the left posterior aspect of the left kidney. Patient status post emergent TAVA, left lower extremity fasciectomy mention of previous nonperfusion to that extremity. Patient's creatinine level was within normal range from previous records prior to this admission however patient had evidence of renal sufficiency on presentation and his creatinine level has continued to rise to a level of 4.75 Date of Consultation with marginal urine output. Interval History Patient remains intubated and nonverbal. Review of Systems General General Remarks Unobtainable because of clinical status. Objective Data Data 07/16/16 07/17/16 19:00 07:00 Intake Total 986 ml 1991 ml Output Total 690 ml 2220 ml Balance 296 ml -229 ml IV Total 552 ml 969 ml Tube Feeding 314 ml 702 ml Other 120 ml 320 ml Output Urine Total 600 ml 1700 ml Stool Total 75 ml 500 ml Drainage Total 15 ml 20 ml Vital Signs Date Time Temp Pulse Resp B/P Pulse Ox O2 Delivery O2 Flow Rate FiO2 07/17/16 16:18 97 40 07/17/16 14:00 55 07/17/16 12:00 40 07/17/16 12:00 98.6 51 13 137/64 92 07/17/16 12:00 51 07/17/16 11:17 100 40 07/17/16 10:00 54 07/17/16 08:07 40 07/17/16 08:07 95 40 07/17/16 08:00 40 07/17/16 08:00 99.6 61 17 122/59 96 Arterial Line 07/17/16 08:00 61 07/17/16 07:00 95 Mechanical Ventilator 40 07/17/16 06:00 54 07/17/16 04:02 96 40 07/17/16 04:00 99.5 58 22 141/64 95 07/17/16 04:00 58 07/17/16 04:00 40 07/17/16 02:00 62 07/17/16 00:00 100.1 63 20 94 146/65 07/17/16 00:00 40 07/17/16 00:00 63 07/16/16 23:53 93 40 07/16/16 22:00 62 07/16/16 20:00 100.5 64 21 95 205/84 07/16/16 20:00 40 07/16/16 20:00 64 07/16/16 20:00 95 Mechanical Ventilator 40 07/16/16 19:57 94 40 07/16/16 18:36 40 07/16/16 18:00 67 07/16/16 17:04 98 40 -: 07/16/16 0600 07/17/16 0455 Physical Exam General Appearance: No Acute Distress, Comfortable Pulmonary Resp Exam: Clear Bilaterally, Breath Sounds Equal, No Distress Cardiology CV Exam: Regular, Normal Sinus Rhythm Gastrointestinal/Abdomen GI Exam: Soft, Non-Tender Integumentary Skin Exam: Clear, Warm Extremeties Extremities Exam: Moderate Edema (2+ pitting edema lower extremities. 1+. Pitting edema upper extremities. Somewhat improved since yesterday.) Assessment/Plan Problem List: (1) Acute kidney insufficiency Plan: Patient most likely has sustained severe ischemic injuries to both kidneys as a result of dissection involving renal arteries. Patient still has significant azotemia but remaining relatively stable. Failure urine output with high dose diuretics. In you to try and improve his volume status. RN indicates that the family and the patient previously did not want to consider dialysis if it becomes a consideration but this needs to be confirmed. If this is the case dialysis will not be performed unless the patient is able to articulate otherwise. Hopefully the patient will be extubated soon. Medications should be adjusted for the patient's estimated GFR if clinically indicated. Avoid agents with significant potential for nephrotoxicity possible including NSAIDs for analgesia, iodine contrast agents if possible. Gadolinium is contraindicated if the GFR is below 30. (2) Hepatitis C Plan: Not playing a role as far as his acute renal failure is concerned in this setting. (3) HTN (hypertension) (4) Hyperphosphatemia Plan: Secondary to renal failure. Noted phosphate binder started. Plan Eufemia Walters MD Jul 17, 2016 16:56
[2016-07-17] MEDS: MELATONIN 5 MG TAB PO SCH (20:02)
[2016-07-18] VITALS (17 sets, daily range): BP systolic 118–166; BP diastolic 60–70; PULSE 51–84; RESP 19–30; TEMP 98.4–98.8; O2SAT 94–100
[2016-07-18] MEDS: RESP: ALBUTEROL 2.5 MG/IPRATROPIUM 0.5 MG NEB (SCH) INH (02:52)
[2016-07-18] MEDS: METOCLOPRAMIDE HCL 10 MG/2 ML VIAL IV PUSH SCH ×3 (05:01→20:53)
[2016-07-18] MEDS: BUMETANIDE INJ 1 MG/4 ML VIAL IV PUSH SCH ×3 (05:01→20:53)
[2016-07-18] MEDS: PIPERACIL-TAZO 2.25 GM PREMIX 50 ML IV SCH ×2 (05:02→17:09)
[2016-07-18] MEDS: SODIUM CHLOR 0.9% 1000 ML INJ 1,000 ML IV SCH ×3 (05:02→19:15)
[2016-07-18] MEDS: ARTIFICIAL TEARS OPTH SOLN 15 ML BTL EACH EYE SCH ×3 (05:02→20:54)
[2016-07-18] MEDS: DOBUTamine 250 MG/D5W 250 ML PREMIX DRIP IV SCH ×2 (05:06→20:54)
[2016-07-18] MEDS: INSULIN NovoLIN REGULAR SUPPLEMENTAL SCALE SQ SCH ×4 (05:22→17:09)
[2016-07-18] MEDS: CHLORHEXIDINE 0.12% (ORAL KIT) 15 ML CUP MT SCH ×2 (08:00→20:00)
[2016-07-18] MEDS: LACTULOSE SYRUP 20 GM/30 ML CUP PO SCH ×4 (09:00→20:52)
[2016-07-18] MEDS: SODIUM CHLORIDE 0.9% FLUSH 10 ML FLUSH IVF SCH (09:00)
[2016-07-18] MEDS: POLYETHYLENE GLYCOL 17 GM PKG OG-TUBE SCH ×2 (09:45→20:52)
[2016-07-18] MEDS: ASPIRIN 81 MG CHEW TAB CHEW SCH (09:45)
[2016-07-18] MEDS: CALCIUM ACETATE 667 MG CAP PO SCH ×3 (09:45→17:09)
[2016-07-18] MEDS: THIAMINE HCL 100 MG TAB PO SCH (09:45)
[2016-07-18] MEDS: DOCUSATE SODIUM 50 MG/SENNA 8.6 MG TAB PO SCH ×2 (09:45→20:52)
[2016-07-18] MEDS: MULTIVITAMIN TAB PO SCH (09:45)
[2016-07-18] MEDS: HEPARIN SODIUM - SQ 10,000 UNITS/ML VIAL SQ SCH ×2 (09:46→20:53)
[2016-07-18] MEDS: PANTOPRAZOLE SODIUM 40 MG VIAL IV SCH (09:47)
[2016-07-18] MEDS: QUEtiapine FUMARATE 25 MG TAB PO SCH ×2 (09:48→20:52)
--- NOTE | 2016-07-18 14:03 | PD.VS.PN ---
Subjective Subjective/Hospital Course Pt in bed requiring minimal pressure support, tolerating well Eyes open and follows simple commands Family met with Palliative Care today to discuss patient's care (Tamika Kaye) Objective Vitals/I&O Date Time Temp Pulse Resp B/P Pulse Ox O2 Delivery O2 Flow Rate FiO2 07/18/16 12:08 98.4 61 30 144/65 07/18/16 11:06 40 07/18/16 10:00 56 07/18/16 08:58 98 40 07/18/16 08:00 55 07/18/16 08:00 55 07/18/16 08:00 98.8 55 19 118/60 98 07/18/16 07:00 Mechanical Ventilator 07/18/16 06:00 52 07/18/16 04:00 56 07/18/16 04:00 40 07/18/16 04:00 98.7 56 19 131/61 99 07/18/16 02:52 100 40 07/18/16 02:00 54 07/18/16 00:00 98.8 57 22 166/70 98 07/18/16 00:00 51 07/18/16 00:00 40 07/17/16 23:10 100 40 07/17/16 22:00 58 07/17/16 20:00 40 07/17/16 20:00 55 07/17/16 20:00 98.7 55 25 160/70 99 07/17/16 19:31 97 40 07/17/16 19:00 99 Mechanical Ventilator 40 07/17/16 18:00 59 07/17/16 16:18 97 40 07/17/16 16:00 98.8 52 18 136/61 91 07/17/16 16:00 40 07/17/16 16:00 52 07/17/16 14:00 55 07/18/16 07/18/16 07/18/16 07:00 15:00 23:00 Intake Total 790 ml Output Total 1000 ml Balance -210 ml Physical Exam GENERAL: Pt awake with eyes open, following simple commands SKIN: Warm and dry. EYES: No scleral icterus. No injection or drainage. NECK: Supple, No JVD CARDIOVASCULAR: +S1,S2 RESPIRATORY: Breath sounds equal and clear bilaterally GASTROINTESTINAL: Abdomen soft and distended. MUSCULOSKELETAL: No cyanosis, or slight edema to LE noted (Tamika Kaye) Laboratory Date/Time Procedure Status Source Growth 07/15/16 16:33 Gram Stain - Final Complete Abscess Abdomen 07/15/16 16:33 Wound Culture - Final Complete Abscess Abdomen NO GROWTH IN 72 HRS.--AEROBICALLY OR ... Imaging Last 48 hours Impressions Abdomen X-Ray 07/17/16 0600 Signed Impressions: Service Date/Time: Sunday, July 17, 2016 05:24 - CONCLUSION: Normal bowel gas pattern Joe Appiah Jr., MD (Tamika Kaye) Assessment and Plan Assessment: (1) Dissecting aneurysm of thoracic aorta, Saran type B Status: Acute Plan S/P TEVAR and L LE fasciotomy Plan Continue to lighten sedation; following commands. Wean vent as tolerated; Continue SBP goal- 120 Continue pulse checks - perfusion to LLE restored with TEVAR Tamika JERNIGAN [facility] [phone] (Tamika Kaye) Plan Agree with above A/P. Patient appears more oriented after sedation medications weaned. Spontaneous respirations on pressure support. Family will continue supporting efforts for extubation if safe although partial code status (chemical support only) if fails extubation. This was after discussion with palliative medicine. Jamaal Strauss DO, FACS [facility] (Jamaal Strauss DO) Tamika Kaye Jul 18, 2016 14:02 Jamaal Strauss DO Jul 18, 2016 16:23
--- NOTE | 2016-07-18 17:46 | HHI.HCPN ---
Reason for visit a. To assist with evaluation and management of symptoms including: pain, dyspnea b. To assist medical decision maker(s) with: better understanding of current medical conditions; weighing benefits/burdens of medical treatment options; making medical treatment decisions. . Subjective/Interval History Patient seen and assessed in room 1304. Patient remains orotracheally intubated. At the time of my exam patient sedation had been on hold for approximately 30 minutes, and the patient was tolerating CPAP trials. His eyes were open, however he did not track or respond to threat. Does not follow commands, but withdraws to deep tactile stimuli. Patient still has significant azotemia, but remains relatively stable. BUN: 118 , creatinine 5.66, GFR 10. Remains on diuretics, 2mg Bumex q8 hours IV push. Palliative care with the patient's family today, and the family is in agreement that the patient would not consent to dialysis if it becomes a consideration. Afebrile. Most recent WBC of 18.5; neutrophils at 82%. Urine culture, blood culture and abdominal abscess culture all remain negative to date. Follow-up chest x-ray on 07/16/16 showing unchanged bibasilar infiltrates and effusions. Remains on IV antibiotics . Family/friend interactions Met with patient's family in the family conference room this morning. Patient' s mother (Nathalia), brother (Luis), sister (Olga), and pvwifi-[id number] (Chanda) were present. They report the patient has a history of substance abuse including EtOH abuse and crack cocaine use. Patient continues to use alcohol, drinking 8-12 beers daily. The patient has a history of medical noncompliance. The patient's family states he was recently hospitalized at another facility and left AMA as soon he has he was [place] [facility] [place] They state the patient would not have wanted this if he had known what it would entail. They do not believe the patient will tolerate/participate rehabilitation if/when he is discharged. . Advance Directives Advance Directive Specifics Significant change in goals: Patient was transferred from another hospital with a type B dissection. Patient 's family stating the patient was a DNR at that facility. Requesting the patient's CODE STATUS be changed to NO CODE because the patient has previously verbalized he would not want cardiopulmonary resuscitation. Patient is currently intubated. If/and the patient is extubated, whether intentionally or unintentionally, the family requests that he not be reintubated. If the patient should experience cardiopulmonary arrest, they asked that he be allowed to pass peacefully and naturally at that time. All family members are in agreement that this is what the patient would want. . Objective Vital Signs Date Time Temp Pulse Resp B/P Pulse Ox O2 Delivery O2 Flow Rate FiO2 07/18/16 16:12 98.6 62 21 153/66 95 07/18/16 14:10 61 07/18/16 12:08 98.4 61 30 144/65 07/18/16 11:06 40 07/18/16 10:00 56 07/18/16 08:58 98 40 07/18/16 08:00 55 07/18/16 08:00 55 07/18/16 08:00 98.8 55 19 118/60 98 07/18/16 07:00 Mechanical Ventilator 07/18/16 06:00 52 07/18/16 04:00 56 07/18/16 04:00 40 07/18/16 04:00 98.7 56 19 131/61 99 07/18/16 02:52 100 40 07/18/16 02:00 54 07/18/16 00:00 98.8 57 22 166/70 98 07/18/16 00:00 51 07/18/16 00:00 40 07/17/16 23:10 100 40 07/17/16 22:00 58 07/17/16 20:00 40 07/17/16 20:00 55 07/17/16 20:00 98.7 55 25 160/70 99 07/17/16 19:31 97 40 07/17/16 19:00 99 Mechanical Ventilator 40 07/17/16 18:00 59 Intake & Output 07/18/16 07/18/16 07:00 19:00 Intake Total 1745 ml 1065 ml Output Total 2120 ml 800 ml Balance -375 ml 265 ml Intake Oral 0 ml IV Total 945 ml 425 ml Tube Feeding 560 ml 320 ml Other 240 ml 320 ml Output Urine Total 1650 ml 775 ml Stool Total 400 ml 0 ml Drainage Total 70 ml 25 ml . Physical Exam CONSTITUTIONAL/GENERAL: This is an adequately nourished patient, remains orotracheally intubated and tolerating sedation vacation/CPAP. TUBES/LINES/DRAINS: Left IJ CVL, ETT, OGT, dignishield, Russell catheter, SCD 1, soft restraints 2, cholecystostomy SKIN: Incisions on left lower extremity without S/S of infection Skin temperature appropriate. Not diaphoretic. HEAD: Atraumatic. Normocephalic. EYES: Pupils equal and round, sluggish. Does not track or respond to threat. ENT: Nose without bleeding or purulent drainage. NECK: Trachea midline. Supple, nontender. No palpable thyroid enlargement or nodularity. CARDIOVASCULAR: Regular rate and rhythm without murmurs, gallops, or rubs. No JVD. Peripheral pulses symmetric. RESPIRATORY/CHEST: Symmetric, unlabored respirations on CPAP. Scattered rhonchi GASTROINTESTINAL: Abdomen distended, firm. GENITOURINARY: Without palpable bladder distension. Russell catheter in place. MUSCULOSKELETAL: Trace edema in bilateral upper and lower extremities LYMPHATICS: No palpable cervical or supraclavicular adenopathy. NEUROLOGICAL: Currently on sedation vacation. Eyes open, does not track or respond to threat. Does not follow commands. Withdraws to deep tactile stimulation. PSYCHIATRIC: Unable to assess given patient's clinical condition excellent. . Diagnostic Tests Laboratory Laboratory Tests Test 07/16/16 07/17/16 06:00 04:55 White Blood Count 18.5 TH/MM3 (4.0-11.0) Red Blood Count 2.74 MIL/MM3 (4.50-5.90) Hemoglobin 8.7 GM/DL (13.0-17.0) Hematocrit 25.0 % (39.0-51.0) Mean Corpuscular Volume 91.5 FL (80.0-100.0) Mean Corpuscular Hemoglobin 31.6 PG (27.0-34.0) Mean Corpuscular Hemoglobin 34.6 % Concent (32.0-36.0) Red Cell Distribution Width 13.6 % (11.6-17.2) Platelet Count 356 TH/MM3 (150-450) Mean Platelet Volume 7.8 FL (7.0-11.0) Neutrophils (%) (Auto) 82.0 % (16.0-70.0) Lymphocytes (%) (Auto) 3.6 % (9.0-44.0) Monocytes (%) (Auto) 10.9 % (0.0-8.0) Eosinophils (%) (Auto) 2.6 % (0.0-4.0) Basophils (%) (Auto) 0.9 % (0.0-2.0) Neutrophils # (Auto) 15.2 TH/MM3 (1.8-7.7) Lymphocytes # (Auto) 0.7 TH/MM3 (1.0-4.8) Monocytes # (Auto) 2.0 TH/MM3 (0-0.9) Eosinophils # (Auto) 0.5 TH/MM3 (0-0.4) Basophils # (Auto) 0.2 TH/MM3 (0-0.2) CBC Comment AUTO DIFF Differential Total Cells 100 Counted Neutrophils % (Manual) 87 % (16-70) Band Neutrophils % 4 % (0-6) Lymphocytes % 2 % (9-44) Monocytes % 2 % (0-8) Eosinophils % 4 % (0-4) Neutrophils # (Manual) 17.0 TH/MM3 (1.8-7.7) Myelocytes 1 % (0-0) Differential Comment FINAL DIFF MANUAL Platelet Estimate NORMAL (NORMAL) Platelet Morphology Comment NORMAL (NORMAL) Sodium Level 139 MEQ/L 142 MEQ/L (136-145) (136-145) Potassium Level 4.5 MEQ/L 4.2 MEQ/L (3.5-5.1) (3.5-5.1) Chloride Level 104 MEQ/L 104 MEQ/L (98-107) (98-107) Carbon Dioxide Level 21.2 MEQ/L 25.2 MEQ/L (21.0-32.0) (21.0-32.0) Anion Gap 14 MEQ/L (5-15) 13 MEQ/L (5-15) Blood Urea Nitrogen 115 MG/DL 118 MG/DL (7-18) (7-18) Creatinine 5.64 MG/DL 5.66 MG/DL (0.60-1.30) (0.60-1.30) Estimat Glomerular Filtration 10 ML/MIN (>89) 10 ML/MIN (>89) Rate Random Glucose 126 MG/DL 146 MG/DL (74-106) (74-106) Calcium Level 8.2 MG/DL 7.9 MG/DL (8.5-10.1) (8.5-10.1) Phosphorus Level 6.3 MG/DL 6.0 MG/DL (2.5-4.9) (2.5-4.9) Magnesium Level 3.4 MG/DL (1.5-2.5) Total Bilirubin 1.7 MG/DL (0.2-1.0) Aspartate Amino Transf 70 U/L (15-37) (AST/SGOT) Alanine Aminotransferase 28 U/L (12-78) (ALT/SGPT) Alkaline Phosphatase 174 U/L (45-117) Total Protein 5.8 GM/DL (6.4-8.2) Albumin 1.8 GM/DL 1.8 GM/DL (3.4-5.0) (3.4-5.0) . Result Diagram: 07/16/16 0600 07/17/16 0455 Microbiology Microbiology Date/Time Procedure Status Source Growth 07/15/16 16:33 Gram Stain - Final Complete Abscess Abdomen 07/15/16 16:33 Wound Culture - Final Complete Abscess Abdomen NO GROWTH IN 72 HRS.--AEROBICALLY OR ... . Imaging Last 72 hours Impressions Abdomen X-Ray 07/17/16 06 Signed Impressions: Service Date/Time: Sunday, July 17, 2016 05:24 - CONCLUSION: Normal bowel gas pattern Joe Appiah Jr., MD Chest X-Ray 07/16/16 06 Signed Impressions: Service Date/Time: Saturday, July 16, 2016 03:25 - CONCLUSION: Unchanged bibasilar infiltrates and effusions. Joe Appiah Jr., MD . Procedures 07/04/16: Right radial arterial line placement 07/04/16: Lumbar drain placement 07/04/16: Right IJ cortis placement 07/04/16: TEVAR and LLE fasciotomy. 07/06/16: Extubation 07/07/16: Reintubation 07/08/16: Platelet transfusion 07/08/16: Lumbar drain removed 07/11/16: Right IJ cortis removed 07/11/16: Left IJ CVL placement . Assessment and Plan Disease Oriented Problem List: (1) Delirium (2) Respiratory failure (3) NSTEMI (non-ST elevated myocardial infarction) (4) Dissecting aneurysm of thoracic aorta, Saran type B (5) Acute kidney insufficiency (6) HTN (hypertension) (7) Hepatitis C (8) Elevated troponin (9) Cholecystitis Symptom Scale: (1) Pain 0-10 Scale: Unable to quantify Comment: Possible causes of pain include postop surgical pain, circulation, edema, ETT, OG, invasive lines, immobility, bedbound status etc. Patient currently on titrated Diprivan drip. PRN fentanyl is available for breakthrough pain, but has not been administered in the past 24 hours. . (2) Dyspnea 0-10 Scale: Unable to quantify Comment: Patient remains orotracheally intubated, currently tolerating sedation vacation and CPAP trials. If or when the patient is extubated, whether intentionally or unintentionally, the patient's family is requesting that the patient NOT BE REINTUBATED. . Pertinent Non-Medical Issues Psychosocial: Patient was born in [place] and moved to [place] as young adult. Patient has a long history of polysubstance abuse which includes EtOH consumption and crack cocaine. The patient continues to drink 8-12 beers daily. The patient has never been and has no children. His mother and 2 of his siblings live locally and a third brother lives in [place]. Patient's mother states patient has been diagnosed with oppositional defiant disorder and is a history of medical noncompliance. Prior to his hospitalization, the patient was living with an elderly gentleman and they were helping each other. 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 The patient received disability approximately 1 week prior to this hospitalization. Spiritual: Christianity nicolas Legal: Per [place] statutes, health care proxy decision making would fall to the patient's mother. Family members state while in the ED at [facility] patient identified his brother (Luis) as his medical decision maker, apparently the appropriate documentation and was not completed. Family members are in agreement and working together on patient's medical decisions. However the patient's mother and 2 other siblings (Olga and Jean Carlos) has opted out of decision making role, deferring to brother Luis. Ethical issues impacting care: No known ethical issues impacting care at this time . Important Contacts Nathalia Izquierdo, mother: [phone] Brother (Luis); [phone] Latadk-st-oqj (Chanda); [phone] Sister (Olga); [phone] Brother (Jean Carlos): [phone] . Prognosis Patient is a 60 year old man who was admitted with a type B aortic dissection. He is currently critically ill status post with TAVER and LLE fasciotomy. His past medical history is significant for polysubstance abuse (EtOH/crack cocaine) , HTN, CAD, COPD, hepatitis C/cirrhosis as well as medical noncompliance The patient currently remains orotracheally intubated and sedated. BUBBA - patient likely sustained severe ischemic injuries to both kidneys secondary to dissection involving renal arteries. It is certainly possible that this patient will be successfully extubated and upcoming days, eventually being stable enough to be discharged to SNF. However given the patient's past medical history, noncompliance, and this recent acute event, the patient has a strong probability into new decline and/or complications. . Code Status: No Code (patient is currently intubated. CODE STATUS changed to NO CODEDNR. If/when the patient is extubated, whether intentionally or unintentionally, the family requested the patient not be reintubated.) Plan * NO CODE/DNR * Code status changed to NO CODE/DNR. Patient was transferred from another hospital with a type B dissection. Patient's family stating the patient was a DNR at that facility. Requesting the patient's CODE STATUS be changed to NO CODE because the patient has previously verbalized he would not want cardiopulmonary resuscitation. Patient is currently intubated. If/and the patient is extubated, whether intentionally or unintentionally, the family requests that he not be reintubated. If the patient should experience cardiopulmonary arrest, they asked that he be allowed to pass peacefully and naturally at that time. All family members are in agreement that this is what the patient would want. * Decision-making: Per [place] statutes, health care proxy decision making would fall to the patient's mother. Family members state while in the ED at [facility] patient identified his brother (Luis) as his medical decision maker, apparently the appropriate documentation and was not completed. Family members are in agreement and working together on patient's medical decisions. However the patient's mother and 2 other siblings (Olga and Jean Carlos) has opted out of decision making role, therefore decision-making multiple to the patient' s brother Luis. * Goals: Patient's family has stated the patient would not have agreed to surgery if he had known what it would involve postoperatively. They feel that comfort focused goals are in line with what the patient would want, but are willing to give the patient a little more time. * Symptom managementpain: Possible causes of pain include postop surgical pain , circulation, edema, ETT, OG, invasive lines, immobility, bedbound status etc. Patient currently on titrated Diprivan drip. PRN fentanyl is available for breakthrough pain, but has not been administered in the past 24 hours. Palliative care will continue to monitor PRN were immense and make recommendations as indicated. * Symptom managementdyspnea: Patient remains orotracheally intubated, currently tolerating sedation vacation and CPAP trials. If or when the patient is extubated, whether intentionally or unintentionally, the patient's family is requesting that the patient NOT BE REINTUBATED. * Met with patient's family in the family conference room this morning. Patient 's mother (Nathalia), brother (Luis), sister (Olga), and [id number] (Chanda) were present. They report the patient has a history of substance abuse including EtOH abuse and crack cocaine use. Patient continues to use alcohol, drinking 8-12 beers daily. The patient has a history of medical noncompliance. The patient's family states he was recently hospitalized at another facility and left AMA as soon he has he was transferred from [facility] [place]. They state the patient would not have wanted this if he had known what it would entail. They do not believe the patient will tolerate/participate rehabilitation if/when he is discharged. Spoke to patient's brother, Jean Carlos Izquierdo, who lives in [place] via telephone. He is in agreement with other family members. * Discussed with vascular surgery and patient's nurse Odette. * Palliative care contact information provided to the patient's family. * Palliative care will continue to follow this patient throughout his hospitalization to establish trust, assist with symptom management and clarification of medical treatment goals. . Attestation To help prompt me to consider important information that might be impacting today's encounter and assessment, information from prior notes written by myself or my colleagues may have been "brought forward" into today's note. My signature on this note, however, is an attestation that I personally performed the exam, history, and/or decision-making noted today, and, unless otherwise indicated, the interactions with patient, family, and staff as well as the review of records all occurred today. I also attest that the listed assessment and stated plan reflect my best clinical judgment today based on the combination of historical information, prior notes, and today's exam/ interactions. When time spent is documented, it refers only to time spent today by the signer, or if indicated, combined time spent today by collaborating physician/nurse practitioner. . Vikki Liu Jul 18, 2016 17:46
--- NOTE | 2016-07-18 18:00 | HHI.CCPN ---
Subjective Remarks/Hospital Course Note for 07/18: Hospital Course: This is a 60-year-old male who is transferred emergently from outside hospital with per report and acute type B dissection. Apparently the patient told his family member today that he had searing back pain and was taken to the emergency department. A CT of the chest at that time showed a type B dissection. The patient was intubated the outside facility and transferred to [facility] for emergent evaluation management. Unfortunately, the patient is unable to provide any additional history at this time. I was at bedside and the patient arrived to the surgical intensive care unit. Dr. Long and I both evaluated the patient and when he arrived he was in a junctional bradycardia with heart rate in the 40s. He had obvious ST depressions in lead II on telemetry. Our initial concern was that we have extended the dissection into the type A dissection. We also did not have any CT of the abdomen and pelvis. On her physical exam, the patient had a cold left foot without pulses. I emergently placed a right radial arterial line, please see separate procedure note for details. We then went emergently to the CT scanner for repeat CT aortogram of the chest abdomen and pelvis to investigate the extent to which the dissection has extended. The CT aortogram demonstrated that this was still a type B dissection with the celiac artery being significantly compressed and possibly comprising flow from the dissection flap. The right kidney appears to be perfused off the false lumen and not the true lumen, and there is no contrast going down the left femoral artery. Patient was then brought back to the intensive care unit. His blood pressure is controlled on nicardipine infusion for goal systolic blood pressure less than 110. A 12-lead EKG at that time was done which demonstrated significant ST depressions in the inferior leads as well as the far lateral leads consistent with subendocardial ischemia. At the request of Dr. Long in anticipation of going emergently to the operative theater, I placed a lumbar drain for spinal protection, please see separate procedure note for details. At that point the patient was taken emergently to the operating room. Critical care medicine is been consulted to evaluate and manage the patient's type B dissection, hemodynamic's, acute hypoxic respiratory failure. 07/05: taken to OR for TEVAR overnight. lactate cleared overnight. uop adequate. Cr elevated to 1.8 this AM. He is on Coreg 50 mg by mouth 07/06: oliguric overnight. Cr rising. however, lactate cleared. other markers of end-organ perfusion better. likely ATN from time of dissection. awake following commands. moving bilateral lower extremities. clear CSF in lumbar drain. on intermittent norepinephrine to maintain spinal perfusion. 07/07: extubated yesterday, followed commands, good pulmonary mechanics. However , after extubation, became acutely delirious- probable combination of etoh withdraw and icu delirium, some pain. mental status waxed and waned throughout the day and ultimately reintubated overnight for worsening waning mental status and hypoxia. post-extubation it has been documented that he continues to move his bilateral lower extremities to painful stimuli and spontaneously. does not follow commands this morning. troponins downtrending. cardiology evaluated the patient yesterday, formal note pending, but per my conversation, plan was for ongoing conservative management as we are doing, and plan for nuc med stress test when stable. 07/08: still moving bilateral LEs spontaneously and w/d to pain. remains intubated with persistent agitation. hypoxia improving. platelets continue to fall, likely a combination of consumption, BUBBA, liver disease. will give unit of platelets prior to d/c lumbar drain. 07/09: Troponin spill resolving without evidence of ongoing injury. Major obstacle is agitation related to ETOH withdrawal followed by necessary sedation. Continue to work toward vent weaning. 07/10: Afebrile. Not following commands. Continues to be agitated for reasons above. Tolerating tube feeding at goal rate. Creatinine hopefully has plateaued. 07/11: CURRENT TEMPERATURE 100.2. MRI brain yesterday revealed left cellular restricted diffusion area likely acute infarct with small punctate areas within the coronal radiata possibly embolic event. Patient is arousable and will move all 4 extremities but not following commands. Left foot remains cool. Tolerating tube feeding. No bowel movement times 4 days. 07/12: Tmax 99.7. Currently 99. Noted right vertebral/distal left MCA/mid right [employer] stenosis on imaging yesterday. Central line exchange from right to left side due to bleeding. No bowel movement for tolerating tube feedings with very low residuals. Still wean sedation. 07/13: Currently afebrile. Patient with soap side enema yesterday with's positive BM 3 overnight.. Go containment device currently in place. Currently hypertensive/when necessary labetalol and clonidine will be added. Noted liberalize SCI around 120 systolic blood pressure. Arousable on the ventilator and moves all 4 extremities spontaneously but not following commands. 07/14: Tmax 99.3. No significant bowel movement overnight. Currently hypotensive. Noted SCI around 120 systolic blood pressure recommended by vascular surgery. Arousable on ventilator on sedation vacation moves all 4 extremity spontaneously but not to commands. Subjective: 07/15: Afebrile. -2775 cc stool past 24 hours. Currently hypertensive. Bradycardic. Requiring antihypertensives. Plan for percutaneous cholecystostomy tube today. 07/16: Remains afebrile. CXR clearing. Renal injury without change, spontaneous urine acceptable. 07/17: No material change. Tolerates CPAP. 07/18: Family is talking with palliative Care service. Objective Vital Signs Date Time Temp Pulse Resp B/P Pulse Ox O2 Delivery O2 Flow Rate FiO2 07/18/16 16:12 98.6 62 21 153/66 95 07/18/16 11:06 40 07/18/16 07:00 Mechanical Ventilator Intake and Output 07/17/16 07/17/16 07/18/16 08:00 16:00 00:00 Intake Total 985 ml 675 ml 955 ml Output Total 1460 ml 1120 ml 1120 ml Balance -475 ml -445 ml -165 ml Result Diagram: 07/16/16 0600 07/17/16 0455 Imaging Last Impressions Chest X-Ray 07/15/16 0600 Signed Impressions: Service Date/Time: Friday, July 15, 2016 04:38 - CONCLUSION: Some worsening of the bilateral pulmonary infiltrates. Joe Appiah Jr., MD Abdomen X-Ray 07/15/16 0600 Signed Impressions: Service Date/Time: Friday, July 15, 2016 04:41 - CONCLUSION: No dilated bowel to suggest an obstruction. Joe Appiah Jr., MD Gall Bladder Ultrasound 07/14/16 0000 Signed Impressions: Service Date/Time: Thursday, July 14, 2016 11:36 - CONCLUSION: Abnormal gallbladder as described above. Cholecystitis would be consideration. The patient is only minimally tender around the gallbladder. Donis Hernandez MD FACR Abdomen/Pelvis CT 07/13/16 0000 Signed Impressions: Service Date/Time: Wednesday, July 13, 2016 17:29 - CONCLUSION: 1. Abnormal appearance of the gallbladder with wall thickening and possible pericholecystic fluid. No calcified stones. Recommend hepatobiliary tract scan to evaluate for acalculus cholecystitis. 2. Bilateral lower lung consolidation and bilateral pleural effusions. 3. Moderate amount of stool in the left colon. 4. Bilateral nonobstructing renal stones. Joe De Leon MD Neck Magnetic Resonance Angiography 07/11/16 0000 Signed Impressions: Service Date/Time: June 14:29 - CONCLUSION: 1. No evidence of carotid stenosis. 2. Short segment high-grade stenosis involving the mid right vertebral artery greater than 80 with a patent left vertebral artery Abhijeet Salinas MD Head Magnetic Resonance Angiography 07/11/16 0000 Signed Impressions: Service Date/Time: June 14:29 - CONCLUSION: 1. Evidence of atherosclerotic disease with focal distal left MCA branch stenosis and focal mid right [employer] stenosis. 2. No proximal high grade stenosis or aneurysm. Bladimir Gasca MD Brain MRI 07/10/16 0000 Signed Impressions: Service Date/Time: Sunday, July 10, 2016 15:03 - CONCLUSION: 1. Small punctate infarcts involving the left cerebellar hemisphere and deep white matter bilaterally in this patient with a background of amyloid angiopathy. No acute hemorrhage is seen. Abhijeet Salinas MD Renal Ultrasound 07/08/16 0000 Signed Impressions: Service Date/Time: Friday, July 08, 2016 17:16 - CONCLUSION: 1. Resistive indices could not be obtained on the right side into the patient's body habitus and shadowing bowel gas. Left renal artery resistive indices are within normal limits. 2. No significant abdominal aortic aneurysm identified status post repair. 3. Probable 7 mm nonobstructing midpole right renal calculus. 4. Tiny left lower pole cyst measuring 1.5 cm. Hamlet Vinson MD Aorta CTA 07/04/16 0000 Signed Impressions: Service Date/Time: June 19:53 - CONCLUSION: 1. Extensive aortic dissection extending from the proximal transverse aorta just distal to the origin of the left subclavian artery. Dissection extends distally through both superficial femoral arteries. 2. Occlusion of the right renal artery with absent perfusion of the right kidney. Dissection of the left renal artery with absent perfusion of the anterior left kidney. 3. 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 4. Occlusion of left external iliac artery and right internal iliac artery. 5. ET tube in satisfactory position. Dependent consolidation in both lungs. Probable mild liver cirrhosis. No obstruction or free fluid. Russell catheter in decompressed bladder. See above discussion. Rodriguez Jeff MD Objective Remarks GENERAL: 60-year-old male. HEENT: Normocephalic. Atraumatic. Pupils 2 mm, reactive, NECK: Supple. Left IJ is clean dry and intact. Orotracheally intubated CHEST: Clear to auscultation, no wheezes rales or rhonchi. CARDIOVASCULAR: RRR. S1, S2 no S4. No m,r ABDOMEN: Mildly distended, soft. No rigidity. Hypoactive bowel sounds. MUSCULOSKELETAL: Distal pulses 2+. Left lower extremity fasciotomy site covered with Sandeep wrap. Medial aspect is sutured. Left foot is tepid. NEUROLOGICAL: Withdraws in both upper and LEs to noxious stimuli. Opens eyes but not following commands Date of Insertion: Jul 11, 2016 Line: Central Venous Catheter Side: Left Location: Internal, Jugular A/P Assessment and Plan Neuro/Psych: Left cerebellar lacunar infarct Right vertebral/distal left MCA and mid right [employer] stenosis Severe Agitated Delirium Alcohol Withdrawal - up to 15 beers daily Risk for spinal cord hypoperfusion Alcohol abuse History of polysubstance abuse including crack cocaine Lumbar drain placement - removed 07/08 Insomnia Propofol at 10-30 mcg/kg/m and as needed fentanyl 50 mcg every hour for sedation/analgesia while intubated -- Goal RASS -2 --Daily sedation vacation On melatonin 5 mg at night as needed for insomnia Daily thiamine 100 mg daily for EtOH use MRI brain 07/10 revealed left cerebellar cystic diffusion region with small punctate areas in the suarez radiata likely embolic. Possible amyloid. MRA head/neck revealed right vertebral 80% short segment stenosis, distal left MCA and mid right [employer] stenosis EEG 07/10 revealed no seizure activity Delirium/Withdraw regimen: --Tizanidine 2mg po BID for pain adjuvant and to help with delirium --Seroquel 25 mg twice a day for delirium/weaning to off --Haldol 5mg iv q4h prn for breakthrough agitation. --Valium 5mg po q8hr for etoh withdraw, start slow taper over through 07/15 --Ativan 1mg iv q15min prn for withdraw symptoms --continue to avoid Precedex for now given recent junctional bradycardia, NSTEMI , and need for continued spinal cord protection with goal systolic blood pressure of 140 to 160 recommended per vascular surgery. -- Okayed with Dr. Long for aspirin 324 mg daily Respiratory: Acute hypoxic and hypercarbic respiratory failure -- PRVC 18/550/0.8/5/40 Vent bundle Bronchodilator therapy every 6 hours and albuterol every 2 hours when needed Head of bed 30 07/12 SAT/SBT approximately 3 hours.. Yesterday minimal due to multiple scans performed Wean FiO2 for goal SPO2 greater than 92% Follow-up a.m. chest x-ray showed small pleural effusions bilaterally/ essentially stable chest x-ray Noted possibly will need bilateral chest tubes if unable to successfully wean. Possible tracheostomy Cardiovascular: Postop day #14 T4 with left lower x-ray fasciotomy secondary to type B aortic dissection with renal/visceral and left lower extreme L perfusion Thoracic endovascular stent with left lower extremity fasciotomy/ compartments with [address] Long Acute type B dissection- secured Type II NSTEMI- Demand Ischemia- resolving Junction bradycardia- resolved. Lactic Acidosis- resolved. Goal SBP > 120 for spinal cord protection -- troponin downtrending. 6.81 -- elevated troponins likely combination of demand ischemia and poor renal clearance -- Cardiology: Dr. Mondragon following. plan for conservative management with myocardial perfusion scan when stable. -- 2d echo: EF 55%, no RWMA. 2-D echo 07/08 repeat EF 60-65%. Mild MR. [facility] dilated. RENO 49 mmHg --Cardiac output currently is 3.8. SVV is 13 As needed labetalol/clonidine for systolic blood pressure greater than 160 My partner added hydralazine overnight. --Use norepinephrine to maintain systolic blood pressure greater than 120 Renal: Acute kidney injury Acute Tubular Necrosis Right and left nephrolithiasis Likely secondary to hypoperfusion of the kidney from dissection, ATN -- FENa 07/07 1.2% consistent with ATN. Urine eos negative. Urine urea ordered -- order renal ultrasound with doppler. Revealed patent renal arteries bilaterally. Tiny 7 mm right renal calculus and 1.5 cm left renal cyst. -- Strict I/Os Russell placement to be maintained --nephrology consult 07/08 appreciated. No indication for dialysis at this point Avoid nephrotoxins drugs BUN/creatinine. Stabilized FEN/GI: Colonic ileus Acute protein calorie malnutrition- mild Non-anion gap metabolic acidosis- resolved. Hyperphosphatemia Hyper-magnesium Hyponatremia History of peptic ulcer disease Hepatitis C -from IV drug use Elevated AST TF: Nepro at goal 40 cc an hour --nutrition consult. Daily BMP --Currently on PhosLo 2668 mg 3 times a day for hyperphosphatemia Protonix for GI prophylaxis. Stephie-Colace twice a day for bowel regimen. MiraLAX twice a day lactulose 4 times daily. KUB revealed 8 cm transverse colon ileus. Positive results with sepsis enema yesterday. CT abdomen/those revealed wall thickening or gallbladder. 2 right midpole no obstructing kidney stones, left circumflex continues on, to semi-bilateral pleural effusions and large amount stool left colon. 2775 cc stools after colonoscopy/GoLYTELY regimen Plan for percutaneous cholecystostomy tube for gallbladder. Not a surgical candidate at this time. Heme/ID: Leukocytosislikely reactive Acute Blood Loss Anemia Thrombocytopenia Daily CBC No infectious etiology suspected this time Daily coags --thrombocytopenia is likely multifactorial from liver disease, consumptive from critical illness and dissection. Blood cultures/sputum/urine ordered 07/11 no growth to date Endocrine: Hyperglycemia of critical illness -- SSI, medium scale, every 6 hours Prophylaxis: GI Prophylaxis Protonix 40 mg IV every 24 DVT Prophylaxis -- SCDs/heparin The patient may receive heparin subcutaneous every 12. Patient may additionally receive aspirin, but not Plavix. Lines: 07/13 -radial arterial line --07/04-07/11 right IJ cortis -- Left IJ CVL 07/11 present Overall impression: Continued slow progress. Renal function unchanged. Spontaneous urine acceptable. Carlos Campos MD Jul 18, 2016 18:00
--- NOTE | 2016-07-18 18:10 | HHI.NPPN ---
Subjective History of Present Illness This patient is a 60-year-old male apparently with a history of previous alcohol and crack usage also has a history of hepatitis C, coronary disease and hypertension as well as medical noncompliance. Patient was admitted with a type B aortic dissection. CTA thoracic aorta and abdominal aorta performed July 04, 2016 revealed occluded right renal artery as well as perfusion only to the left posterior aspect of the left kidney. Patient status post emergent TAVA, left lower extremity fasciectomy mention of previous nonperfusion to that extremity. Patient's creatinine level was within normal range from previous records prior to this admission however patient had evidence of renal sufficiency on presentation and his creatinine level has continued to rise to a level of 4.75 Date of Consultation with marginal urine output. Interval History Patient still intubated on a ventilator but appears to be more alert. Review of Systems General General Remarks Unobtainable because of clinical status. Objective Data Data 07/17/16 07/18/16 19:00 07:00 Intake Total 675 ml 1745 ml Output Total 1120 ml 2120 ml Balance -445 ml -375 ml Intake Oral 0 ml IV Total 173 ml 945 ml Tube Feeding 382 ml 560 ml Other 120 ml 240 ml Output Urine Total 1000 ml 1650 ml Stool Total 100 ml 400 ml Drainage Total 20 ml 70 ml Vital Signs Date Time Temp Pulse Resp B/P Pulse Ox O2 Delivery O2 Flow Rate FiO2 07/18/16 16:12 98.6 62 21 153/66 95 07/18/16 14:10 61 07/18/16 12:08 98.4 61 30 144/65 07/18/16 11:06 40 07/18/16 10:00 56 07/18/16 08:58 98 40 07/18/16 08:00 55 07/18/16 08:00 55 07/18/16 08:00 98.8 55 19 118/60 98 07/18/16 07:00 Mechanical Ventilator 07/18/16 06:00 52 07/18/16 04:00 56 07/18/16 04:00 40 07/18/16 04:00 98.7 56 19 131/61 99 07/18/16 02:52 100 40 07/18/16 02:00 54 07/18/16 00:00 98.8 57 22 166/70 98 07/18/16 00:00 51 07/18/16 00:00 40 07/17/16 23:10 100 40 07/17/16 22:00 58 07/17/16 20:00 40 07/17/16 20:00 55 07/17/16 20:00 98.7 55 25 160/70 99 07/17/16 19:31 97 40 07/17/16 19:00 99 Mechanical Ventilator 40 -: 07/16/16 0600 07/17/16 0455 Physical Exam General Appearance: No Acute Distress, Comfortable Pulmonary Resp Exam: Clear Bilaterally, Breath Sounds Equal, No Distress Cardiology CV Exam: Regular, Normal Sinus Rhythm Gastrointestinal/Abdomen GI Exam: Soft, Non-Tender Integumentary Skin Exam: Clear, Warm Extremeties Extremities Exam: Moderate Edema (2+ pitting edema lower extremities. 1+. Pitting edema upper extremities. Somewhat improved since yesterday.) Assessment/Plan Problem List: (1) Acute kidney insufficiency Plan: Patient most likely has sustained severe ischemic injuries to both kidneys as a result of dissection involving renal arteries. His urine output appears to be improving with diuretics but his azotemia about the same and not progressive. No immediate indication to initiate dialysis with good urine output, stable electrolytes and acid base status. Hopefully the patient can be extubated and provide us with some guidance regarding his wishes as far as management is concerned. Case discussed with palliative care. Uncertain if the patient will require dialytic support at this point in time as there is still potential for improvement in renal function. Medications should be adjusted for the patient's estimated GFR if clinically indicated. Avoid agents with significant potential for nephrotoxicity possible including NSAIDs for analgesia, iodine contrast agents if possible. Gadolinium is contraindicated if the GFR is below 30. (2) Hepatitis C Plan: Not playing a role as far as his acute renal failure is concerned in this setting. (3) HTN (hypertension) (4) Hyperphosphatemia Plan: Secondary to renal failure. Noted phosphate binder started. Plan Eufemia Walters MD Jul 18, 2016 18:10
[2016-07-18] MEDS: RESP: ALBUTEROL 2.5 MG/3 ML NEB (PRN) NEB (20:02)
[2016-07-18] MEDS: ACETAMINOPHEN 325 MG TAB PO PRN (20:52)
[2016-07-18] MEDS: MELATONIN 5 MG TAB PO SCH (20:52)
[2016-07-19] VITALS (17 sets, daily range): BP systolic 139–190; BP diastolic 57–79; PULSE 54–66; RESP 14–25; TEMP 98.5–99.2; O2SAT 93–100
[2016-07-19] MEDS: CHLORHEXIDINE GLUCONATE 2 % 1 PACK (2 CLOTHS) TOP SCH (01:05)
[2016-07-19] MEDS: PROPOFOL 1000 MG/100 ML INJ 100 ML IV SCH ×3 (02:09→21:12)
[2016-07-19 05:47] LABS: BICARBONATE 21.8 MEQ/L (21.0-32.0); POTASSIUM 3.4 MEQ/L (3.5-5.1)
[2016-07-19] MEDS: INSULIN NovoLIN REGULAR SUPPLEMENTAL SCALE SQ SCH ×4 (06:00→17:12)
[2016-07-19] MEDS: ARTIFICIAL TEARS OPTH SOLN 15 ML BTL EACH EYE SCH ×3 (06:00→21:12)
[2016-07-19] MEDS: PIPERACIL-TAZO 2.25 GM PREMIX 50 ML IV SCH ×2 (06:11→17:12)
[2016-07-19] MEDS: BUMETANIDE INJ 1 MG/4 ML VIAL IV PUSH SCH ×3 (06:11→21:10)
[2016-07-19] MEDS: METOCLOPRAMIDE HCL 10 MG/2 ML VIAL IV PUSH SCH ×3 (06:12→21:10)
[2016-07-19] MEDS: CHLORHEXIDINE 0.12% (ORAL KIT) 15 ML CUP MT SCH ×2 (08:00→20:00)
[2016-07-19] MEDS: ASPIRIN 81 MG CHEW TAB CHEW SCH (08:03)
[2016-07-19] MEDS: SODIUM CHLORIDE 0.9% FLUSH 10 ML FLUSH IVF SCH (08:04)
[2016-07-19] MEDS: POLYETHYLENE GLYCOL 17 GM PKG OG-TUBE SCH ×2 (08:04→21:11)
[2016-07-19] MEDS: PANTOPRAZOLE SODIUM 40 MG VIAL IV SCH (08:04)
[2016-07-19] MEDS: THIAMINE HCL 100 MG TAB PO SCH (08:05)
[2016-07-19] MEDS: CALCIUM ACETATE 667 MG CAP PO SCH ×3 (08:05→17:11)
[2016-07-19] MEDS: LACTULOSE SYRUP 20 GM/30 ML CUP PO SCH ×4 (08:05→21:10)
[2016-07-19] MEDS: DOCUSATE SODIUM 50 MG/SENNA 8.6 MG TAB PO SCH ×2 (08:05→21:10)
[2016-07-19] MEDS: MULTIVITAMIN TAB PO SCH (08:05)
[2016-07-19] MEDS: QUEtiapine FUMARATE 25 MG TAB PO SCH ×2 (08:05→21:11)
[2016-07-19] MEDS: HEPARIN SODIUM - SQ 10,000 UNITS/ML VIAL SQ SCH ×2 (08:06→21:00)
[2016-07-19] MEDS: RESP: ALBUTEROL 2.5 MG/3 ML NEB (PRN) NEB (08:08)
--- NOTE | 2016-07-19 08:32 | PD.VS.PN ---
Subjective POD #: 15 Procedure(s): TEVAR, L LE fasciotomies for acute TBAD with visceral/renal/LLE malperfusion Subjective/Hospital Course Pt weaning vent Reportedly was answering questions yesterday Family met with Palliative Care - currently DNR Objective Neuro: Somnolent, but sedation turned off recently. MENSAH. Pulmonary: Weaning vent. Stable effusions on CXR. Cardiac: No pressors. FEN/GI: Nazia TF. Abdomen distended but + BM. Shantelle drain in place. K 3.4 : BUN/cr 108/5.3 No need for HD - most pressing renal need is diuresis as total body fluid overload. On q8 Bumex and made in excess of 2L urine yesterday ID Antibiotics(date/duration): Afebrile. WBC 18 sev days ago. ID Cultures: All NGTD. Vascular: Fasciotomies closed. + signals B Laboratory Laboratory Tests Test 07/19/16 05:15 Sodium Level 142 Potassium Level 3.4 Chloride Level 106 Carbon Dioxide Level 21.8 Anion Gap 14 Blood Urea Nitrogen 108 Creatinine 5.30 Estimat Glomerular Filtration 11 Rate Random Glucose 123 Calcium Level 8.6 Date/Time Procedure Status Source Growth 07/15/16 16:33 Gram Stain - Final Complete Abscess Abdomen 07/15/16 16:33 Wound Culture - Final Complete Abscess Abdomen NO GROWTH IN 72 HRS.--AEROBICALLY OR ... Assessment and Plan Assessment: (1) Dissecting aneurysm of thoracic aorta, Saran type B Status: Acute Plan Overall, he looks good. Main issues are ventilator (weaning) and renal (good UOP, still needs diuresis) Neuro - lighten sedation and continue neuro checks Rest - wean vent. May benefit from trach to allow less sedation CV - no issues. FEN/GI - nazia TF. Getting Bumex q8. Will HL MIVF and push diuretic. Can cap cholecystostomy drain. ID - no issues. would recheck WBC. Ok to d/c antibiotics from my standpoint Heme - no issues Vasc - at some point, needs repeat CTA but this is a long way off given creatinine. Good perfusion to intestines, renals, LE. Hamlet Long MD Jul 19, 2016 08:32
--- NOTE | 2016-07-19 10:42 | HHI.CCPN ---
Subjective Remarks/Hospital Course Hospital Course: This is a 60-year-old male who is transferred emergently from outside hospital with per report and acute type B dissection. Apparently the patient told his family member today that he had searing back pain and was taken to the emergency department. A CT of the chest at that time showed a type B dissection. The patient was intubated the outside facility and transferred to [facility] for emergent evaluation management. Unfortunately, the patient is unable to provide any additional history at this time. I was at bedside and the patient arrived to the surgical intensive care unit. Dr. Long and I both evaluated the patient and when he arrived he was in a junctional bradycardia with heart rate in the 40s. He had obvious ST depressions in lead II on telemetry. Our initial concern was that we have extended the dissection into the type A dissection. We also did not have any CT of the abdomen and pelvis. On her physical exam, the patient had a cold left foot without pulses. I emergently placed a right radial arterial line, please see separate procedure note for details. We then went emergently to the CT scanner for repeat CT aortogram of the chest abdomen and pelvis to investigate the extent to which the dissection has extended. The CT aortogram demonstrated that this was still a type B dissection with the celiac artery being significantly compressed and possibly comprising flow from the dissection flap. The right kidney appears to be perfused off the false lumen and not the true lumen, and there is no contrast going down the left femoral artery. Patient was then brought back to the intensive care unit. His blood pressure is controlled on nicardipine infusion for goal systolic blood pressure less than 110. A 12-lead EKG at that time was done which demonstrated significant ST depressions in the inferior leads as well as the far lateral leads consistent with subendocardial ischemia. At the request of Dr. Long in anticipation of going emergently to the operative theater, I placed a lumbar drain for spinal protection, please see separate procedure note for details. At that point the patient was taken emergently to the operating room. Critical care medicine is been consulted to evaluate and manage the patient's type B dissection, hemodynamic's, acute hypoxic respiratory failure. 07/05: taken to OR for TEVAR overnight. lactate cleared overnight. uop adequate. Cr elevated to 1.8 this AM. He is on Coreg 50 mg by mouth 07/06: oliguric overnight. Cr rising. however, lactate cleared. other markers of end-organ perfusion better. likely ATN from time of dissection. awake following commands. moving bilateral lower extremities. clear CSF in lumbar drain. on intermittent norepinephrine to maintain spinal perfusion. 07/07: extubated yesterday, followed commands, good pulmonary mechanics. However , after extubation, became acutely delirious- probable combination of etoh withdraw and icu delirium, some pain. mental status waxed and waned throughout the day and ultimately reintubated overnight for worsening waning mental status and hypoxia. post-extubation it has been documented that he continues to move his bilateral lower extremities to painful stimuli and spontaneously. does not follow commands this morning. troponins downtrending. cardiology evaluated the patient yesterday, formal note pending, but per my conversation, plan was for ongoing conservative management as we are doing, and plan for nuc med stress test when stable. 07/08: still moving bilateral LEs spontaneously and w/d to pain. remains intubated with persistent agitation. hypoxia improving. platelets continue to fall, likely a combination of consumption, BUBBA, liver disease. will give unit of platelets prior to d/c lumbar drain. 07/09: Troponin spill resolving without evidence of ongoing injury. Major obstacle is agitation related to ETOH withdrawal followed by necessary sedation. Continue to work toward vent weaning. 07/10: Afebrile. Not following commands. Continues to be agitated for reasons above. Tolerating tube feeding at goal rate. Creatinine hopefully has plateaued. 07/11: CURRENT TEMPERATURE 100.2. MRI brain yesterday revealed left cellular restricted diffusion area likely acute infarct with small punctate areas within the coronal radiata possibly embolic event. Patient is arousable and will move all 4 extremities but not following commands. Left foot remains cool. Tolerating tube feeding. No bowel movement times 4 days. 07/12: Tmax 99.7. Currently 99. Noted right vertebral/distal left MCA/mid right [employer] TECHNICIAN stenosis on imaging yesterday. Central line exchange from right to left side due to bleeding. No bowel movement for tolerating tube feedings with very low residuals. Still wean sedation. 07/13: Currently afebrile. Patient with soap side enema yesterday with's positive BM 3 overnight.. Go containment device currently in place. Currently hypertensive/when necessary labetalol and clonidine will be added. Noted liberalize SCI around 120 systolic blood pressure. Arousable on the ventilator and moves all 4 extremities spontaneously but not following commands. 07/14: Tmax 99.3. No significant bowel movement overnight. Currently hypotensive. Noted SCI around 120 systolic blood pressure recommended by vascular surgery. Arousable on ventilator on sedation vacation moves all 4 extremity spontaneously but not to commands. Subjective: 07/15: Afebrile. -2775 cc stool past 24 hours. Currently hypertensive. Bradycardic. Requiring antihypertensives. Plan for percutaneous cholecystostomy tube today. 07/16: Remains afebrile. CXR clearing. Renal injury without change, spontaneous urine acceptable. 07/17: No material change. Tolerates CPAP. 07/18: Family is talking with palliative Care service. 07/19: Will try CPAP with decreasing pressure support. DNR status clouds issue for extubation. Objective Vital Signs Date Time Temp Pulse Resp B/P Pulse Ox O2 Delivery O2 Flow Rate FiO2 07/19/16 10:00 66 07/19/16 08:15 40 07/19/16 08:13 95 07/19/16 08:00 99.2 21 139/63 07/19/16 07:00 Mechanical Ventilator Intake and Output 07/18/16 07/18/16 07/19/16 08:00 16:00 00:00 Intake Total 790 ml 1065 ml 1820 ml Output Total 1000 ml 800 ml 1070 ml Balance -210 ml 265 ml 750 ml Result Diagram: 07/16/16 0600 07/19/16 0515 Imaging Last Impressions Chest X-Ray 07/15/16 06 Signed Impressions: Service Date/Time: Friday, July 15, 2016 04:38 - CONCLUSION: Some worsening of the bilateral pulmonary infiltrates. Joe Appiah Jr., MD Abdomen X-Ray 07/15/16 0600 Signed Impressions: Service Date/Time: Friday, July 15, 2016 04:41 - CONCLUSION: No dilated bowel to suggest an obstruction. Joe Appiah Jr., MD Gall Bladder Ultrasound 07/14/16 0000 Signed Impressions: Service Date/Time: Thursday, July 14, 2016 11:36 - CONCLUSION: Abnormal gallbladder as described above. Cholecystitis would be consideration. The patient is only minimally tender around the gallbladder. Donis Hernandez MD FACR Abdomen/Pelvis CT 07/13/16 0000 Signed Impressions: Service Date/Time: Wednesday, July 13, 2016 17:29 - CONCLUSION: 1. Abnormal appearance of the gallbladder with wall thickening and possible pericholecystic fluid. No calcified stones. Recommend hepatobiliary tract scan to evaluate for acalculus cholecystitis. 2. Bilateral lower lung consolidation and bilateral pleural effusions. 3. Moderate amount of stool in the left colon. 4. Bilateral nonobstructing renal stones. Joe De Leon MD Neck Magnetic Resonance Angiography 07/11/16 0000 Signed Impressions: Service Date/Time: June 14:29 - CONCLUSION: 1. No evidence of carotid stenosis. 2. Short segment high-grade stenosis involving the mid right vertebral artery greater than 80 with a patent left vertebral artery Abhijeet Salinas MD Head Magnetic Resonance Angiography 07/11/16 0000 Signed Impressions: Service Date/Time: June 14:29 - CONCLUSION: 1. Evidence of atherosclerotic disease with focal distal left MCA branch stenosis and focal mid right PEST [employer] TECHNICIAN stenosis. 2. No proximal high grade stenosis or aneurysm. Bladimir Gasca MD Brain MRI 07/10/16 0000 Signed Impressions: Service Date/Time: Sunday, July 10, 2016 15:03 - CONCLUSION: 1. Small punctate infarcts involving the left cerebellar hemisphere and deep white matter bilaterally in this patient with a background of amyloid angiopathy. No acute hemorrhage is seen. Abhijeet Salinas MD Renal Ultrasound 07/08/16 0000 Signed Impressions: Service Date/Time: Friday, July 08, 2016 17:16 - CONCLUSION: 1. Resistive indices could not be obtained on the right side into the patient's body habitus and shadowing bowel gas. Left renal artery resistive indices are within normal limits. 2. No significant abdominal aortic aneurysm identified status post repair. 3. Probable 7 mm nonobstructing midpole right renal calculus. 4. Tiny left lower pole cyst measuring 1.5 cm. Hamlet Vinson MD Aorta CTA 07/04/16 0000 Signed Impressions: Service Date/Time: June 19:53 - CONCLUSION: 1. Extensive aortic dissection extending from the proximal transverse aorta just distal to the origin of the left subclavian artery. Dissection extends distally through both superficial femoral arteries. 2. Occlusion of the right renal artery with absent perfusion of the right kidney. Dissection of the left renal artery with absent perfusion of the anterior left kidney. 3. 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 4. Occlusion of left external iliac artery and right internal iliac artery. 5. ET tube in satisfactory position. Dependent consolidation in both lungs. Probable mild liver cirrhosis. No obstruction or free fluid. Russell catheter in decompressed bladder. See above discussion. Rodriguez Jeff MD Objective Remarks GENERAL: 60-year-old male. HEENT: Normocephalic. Atraumatic. Pupils 2 mm, reactive, NECK: Supple. Left IJ is clean dry and intact. Orotracheally intubated CHEST: Clear to auscultation, no wheezes rales or rhonchi. CARDIOVASCULAR: RRR. S1, S2 no S4. No m,r ABDOMEN: Mildly distended, soft. No rigidity. Active bowel sounds. MUSCULOSKELETAL: Distal pulses 2+. Medial aspect is sutured. Left foot is tepid. NEUROLOGICAL: Withdraws both upper and LEs to noxious stimuli. Opens eyes, appears to nod head to questions. Date of Insertion: Jul 11, 2016 Line: Central Venous Catheter Side: Left Location: Internal, Jugular A/P Assessment and Plan Neuro/Psych: Left cerebellar lacunar infarct Right vertebral/distal left MCA and mid right PEST [employer] TECHNICIAN stenosis Severe Agitated Delirium Alcohol Withdrawal - up to 15 beers daily Risk for spinal cord hypoperfusion Alcohol abuse History of polysubstance abuse including crack cocaine Lumbar drain placement - removed 07/08 Insomnia Propofol at 10-30 mcg/kg/m and as needed fentanyl 50 mcg every hour for sedation/analgesia while intubated -- Goal RASS -2 --Daily sedation vacation On melatonin 5 mg at night as needed for insomnia Daily thiamine 100 mg daily for EtOH use MRI brain 07/10 revealed left cerebellar cystic diffusion region with small punctate areas in the suarez radiata likely embolic. Possible amyloid. MRA head/neck revealed right vertebral 80% short segment stenosis, distal left MCA and mid right PEST [employer] TECHNICIAN stenosis EEG 07/10 revealed no seizure activity Delirium/Withdraw regimen: --Tizanidine 2mg po BID for pain adjuvant and to help with delirium --Seroquel 25 mg twice a day for delirium/weaning to off --Haldol 5mg iv q4h prn for breakthrough agitation. --Valium 5mg po q8hr for etoh withdraw, start slow taper over through 07/15 --Ativan 1mg iv q15min prn for withdraw symptoms --continue to avoid Precedex for now given recent junctional bradycardia, NSTEMI , and need for continued spinal cord protection with goal systolic blood pressure of 140 to 160 recommended per vascular surgery. -- Okayed with Dr. Long for aspirin 324 mg daily Respiratory: Acute hypoxic and hypercarbic respiratory failure -- PRVC 18/550/0.8/5/40 Vent bundle Bronchodilator therapy every 6 hours and albuterol every 2 hours when needed Head of bed 30 07/12 SAT/SBT approximately 3 hours.. Yesterday minimal due to multiple scans performed Wean FiO2 for goal SPO2 greater than 92% Follow-up a.m. chest x-ray showed small pleural effusions bilaterally/ essentially stable chest x-ray Noted possibly will need bilateral chest tubes if unable to successfully wean. Possible tracheostomy Cardiovascular: Postop day #15 T4 with left lower x-ray fasciotomy secondary to type B aortic dissection with renal/visceral and left lower extreme L perfusion Thoracic endovascular stent with left lower extremity fasciotomy/ compartments with [address] Long Acute type B dissection- secured Type II NSTEMI- Demand Ischemia- resolving Junction bradycardia- resolved. Lactic Acidosis- resolved. Goal SBP > 120 for spinal cord protection -- troponin downtrending. 6.81 -- elevated troponins likely combination of demand ischemia and poor renal clearance -- Cardiology: Dr. Mondragon following. plan for conservative management with myocardial perfusion scan when stable. -- 2d echo: EF 55%, no RWMA. 2-D echo 07/08 repeat EF 60-65%. Mild MR. [facility] dilated. RENO 49 mmHg --Cardiac output currently is 3.8. SVV is 13 As needed labetalol/clonidine for systolic blood pressure greater than 160 My partner added hydralazine overnight. --Use norepinephrine to maintain systolic blood pressure greater than 120 Renal: Acute kidney injury Acute Tubular Necrosis Right and left nephrolithiasis Likely secondary to hypoperfusion of the kidney from dissection, ATN -- FENa 07/07 1.2% consistent with ATN. Urine eos negative. Urine urea ordered -- order renal ultrasound with doppler. Revealed patent renal arteries bilaterally. Tiny 7 mm right renal calculus and 1.5 cm left renal cyst. -- Strict I/Os Russell placement to be maintained --nephrology consult 07/08 appreciated. No indication for dialysis at this point Avoid nephrotoxins drugs BUN/creatinine. Stabilized FEN/GI: Colonic ileus Acute protein calorie malnutrition- mild Non-anion gap metabolic acidosis- resolved. Hyperphosphatemia Hyper-magnesium Hyponatremia History of peptic ulcer disease Hepatitis C -from IV drug use Elevated AST TF: Nepro at goal 40 cc an hour --nutrition consult. Daily BMP --Currently on PhosLo 2668 mg 3 times a day for hyperphosphatemia Protonix for GI prophylaxis. Stephie-Colace twice a day for bowel regimen. MiraLAX twice a day lactulose 4 times daily. KUB revealed 8 cm transverse colon ileus. Positive results with sepsis enema yesterday. CT abdomen/those revealed wall thickening or gallbladder. 2 right midpole no obstructing kidney stones, left circumflex continues on, to semi-bilateral pleural effusions and large amount stool left colon. 2775 cc stools after colonoscopy/GoLYTELY regimen Plan for percutaneous cholecystostomy tube for gallbladder. Not a surgical candidate at this time. Heme/ID: Leukocytosislikely reactive Acute Blood Loss Anemia Thrombocytopenia Daily CBC No infectious etiology suspected this time Daily coags --thrombocytopenia is likely multifactorial from liver disease, consumptive from critical illness and dissection. Blood cultures/sputum/urine ordered 07/11 no growth to date Endocrine: Hyperglycemia of critical illness -- SSI, medium scale, every 6 hours Prophylaxis: GI Prophylaxis Protonix 40 mg IV every 24 DVT Prophylaxis -- SCDs/heparin The patient may receive heparin subcutaneous every 12. Patient may additionally receive aspirin, but not Plavix. Lines: 07/13 -radial arterial line --07/04-07/11 right IJ cortis -- Left IJ CVL 07/11 present Overall impression: Continued slow progress. Renal function unchanged. Spontaneous urine acceptable. Family discussing trach vs extubation attempt. Carlos Campos MD Jul 19, 2016 10:42
[2016-07-19] MEDS: DOBUTamine 250 MG/D5W 250 ML PREMIX DRIP IV SCH (12:46)
--- NOTE | 2016-07-19 15:49 | HHI.NPPN ---
Subjective History of Present Illness This patient is a 60-year-old male apparently with a history of previous alcohol and crack usage also has a history of hepatitis C, coronary disease and hypertension as well as medical noncompliance. Patient was admitted with a type B aortic dissection. CTA thoracic aorta and abdominal aorta performed July 04, 2016 revealed occluded right renal artery as well as perfusion only to the left posterior aspect of the left kidney. Patient status post emergent TAVA, left lower extremity fasciectomy mention of previous nonperfusion to that extremity. Patient's creatinine level was within normal range from previous records prior to this admission however patient had evidence of renal sufficiency on presentation and his creatinine level has continued to rise to a level of 4.75 Date of Consultation with marginal urine output. Interval History Patient still on the ventilator. Not responsive to simple questions or commands. Review of Systems General General Remarks Unobtainable because of clinical status. Objective Data Data 07/18/16 07/19/16 19:00 07:00 Intake Total 1065 ml 2640 ml Output Total 800 ml 1640 ml Balance 265 ml 1000 ml Intake Oral 0 ml IV Total 425 ml 1300 ml Tube Feeding 320 ml 1100 ml Other 320 ml 240 ml Output Urine Total 775 ml 1550 ml Stool Total 0 ml 50 ml Drainage Total 25 ml 40 ml Vital Signs Date Time Temp Pulse Resp B/P Pulse Ox O2 Delivery O2 Flow Rate FiO2 07/19/16 14:00 55 07/19/16 12:06 97 40 07/19/16 12:00 66 07/19/16 12:00 99.2 66 14 157/68 97 07/19/16 12:00 40 07/19/16 10:00 66 07/19/16 08:15 40 07/19/16 08:13 95 40 07/19/16 08:10 95 40 07/19/16 08:00 62 07/19/16 08:00 99.2 56 21 139/63 94 07/19/16 08:00 40 07/19/16 07:00 95 Mechanical Ventilator 40 07/19/16 06:00 55 07/19/16 04:19 93 40 07/19/16 04:00 54 07/19/16 04:00 40 07/19/16 04:00 98.7 55 25 144/65 94 07/19/16 02:00 55 07/19/16 00:00 61 07/19/16 00:00 98.8 61 20 142/65 99 07/19/16 00:00 40 07/18/16 22:17 96 40 07/18/16 22:00 57 07/18/16 21:52 22 07/18/16 20:02 96 40 07/18/16 20:00 98.6 84 21 136/61 97 07/18/16 20:00 58 07/18/16 20:00 40 07/18/16 19:00 99 Mechanical Ventilator 40 07/18/16 17:30 40 07/18/16 17:30 94 40 07/18/16 16:12 98.6 62 21 153/66 95 -: 07/16/16 0600 07/19/16 0515 Physical Exam General Appearance: No Acute Distress, Comfortable Pulmonary Resp Exam: Clear Bilaterally, Breath Sounds Equal, No Distress Cardiology CV Exam: Regular, Normal Sinus Rhythm Gastrointestinal/Abdomen GI Exam: Soft, Non-Tender Integumentary Skin Exam: Clear, Warm Extremeties Extremities Exam: Moderate Edema (edema upper and lower extremities however is improving. 1-2+.), Dependent Edema Assessment/Plan Problem List: (1) Acute kidney insufficiency Plan: The patient's creatinine level has improved today and urine output is also fairly good improving volume status. Continue bumetanide as ordered. Uncertain if the patient will require dialytic support at this point in time as there is still potential for improvement in renal function. Hopefully the patient can be weaned off the ventilator and provide some input into aggressiveness of care. Medications should be adjusted for the patient's estimated GFR if clinically indicated. Avoid agents with significant potential for nephrotoxicity possible including NSAIDs for analgesia, iodine contrast agents if possible. Gadolinium is contraindicated if the GFR is below 30. (2) Hepatitis C Plan: Not playing a role as far as his acute renal failure is concerned in this setting. (3) HTN (hypertension) (4) Hyperphosphatemia Plan: Secondary to renal failure. Noted phosphate binder started. Plan Eufemia Walters MD Jul 19, 2016 15:49
[2016-07-19] MEDS ORDERED: ALTEPLASE RECOMBINANT 2 MG VIAL IV FLUSH ONE ×2 (17:00)
[2016-07-19] MEDS: SODIUM CHLOR 0.9% 1000 ML INJ 1,000 ML IV SCH (19:15)
--- NOTE | 2016-07-19 19:56 | HHI.HCPN ---
Reason for visit a. To assist with evaluation and management of symptoms including: pain, dyspnea b. To assist medical decision maker(s) with: better understanding of current medical conditions; weighing benefits/burdens of medical treatment options; making medical treatment decisions. . Subjective/Interval History No significant events overnight. Patient is on proprofol at time of my visit and does not awaken to voice/exam. Nursing staff reports patient is alert during sedation/vacation and that he is nodding/shaking head appropriately to yes/no questions. He remains unable to move extremities on command. Patient remains orotracheally intubated. Tolerated CPAP trial for 6-7 hours today. Afebrile. Other VS stable. Urine output good. Stooling via rectal tube. Tolerating tube feeds. Hg stable. WBC remains elevated. Slight renal function improvement 108/5.3 with GFR 11. Cultures show no growth. No new imaging today. No family at bedside today. Nurses report family is requesting to speak directly with CV surgery. They are becoming more adamant that patient does not want ongoing aggressive care. Per nursing staff, they question patient when awake, and after nodding yes/no appropriately to a variety of questions is clear that he no longer wants life support. Per the discussion with palliative care on 07/18/16... Met with patient's family in the family conference room this morning. Patient' s mother (Nathalia), brother (Luis), sister (Olga), and gkyghz-[id number] (Chanda) were present. They report the patient has a history of substance abuse including EtOH abuse and crack cocaine use. Patient continues to use alcohol, drinking 8-12 beers daily. The patient has a history of medical noncompliance. The patient's family states he was recently hospitalized at another facility and left AMA as soon he has he was transferred from [facility] [place]. They state the patient would not have wanted this if he had known what it would entail. They do not believe the patient will tolerate/participate rehabilitation if/when he is discharged. Family also feels strongly that he would not want hemodialysis if necessary. Nurses report family will not want to consent to trach/PEG. Note that patient's brother -- Luis -- is now the legal health care proxy per the palliative care note below Decision-making: Per [place] statutes, health care proxy decision making would fall to the patient's mother. Family members state while in the ED at [facility] patient identified his brother (Luis) as his medical decision maker, apparently the appropriate documentation and was not completed. Family members are in agreement and working together on patient's medical decisions. However the patient's mother and 2 other siblings (Olga and Jean Carlos) has opted out of decision making role, deferring to brother Luis. . Family/friend interactions No family at bedside. . Advance Directives Living Will: Never completed Health Care Surrogate: Never completed Durable Power of Promotional Model: Never completed Advance Directive Specifics Date completed: Advance directives never completed. . Health Care Surrogate(s): No written designation of health care surrogacy. . Documented care wishes: No written documentation of health care goals/preferences. . Significant change in goals: Per nursing staff and family, patient , when off sedation, has indicated a desire to get off life support. . Objective Vital Signs Date Time Temp Pulse Resp B/P Pulse Ox O2 Delivery O2 Flow Rate FiO2 07/19/16 18:00 59 07/19/16 16:00 59 07/19/16 16:00 98.5 58 20 156/57 100 07/19/16 16:00 40 07/19/16 14:00 55 07/19/16 12:06 97 40 07/19/16 12:00 66 07/19/16 12:00 99.2 66 14 157/68 97 07/19/16 12:00 40 07/19/16 10:00 66 07/19/16 08:15 40 07/19/16 08:13 95 40 07/19/16 08:10 95 40 07/19/16 08:00 62 07/19/16 08:00 99.2 56 21 139/63 94 07/19/16 08:00 40 07/19/16 07:00 95 Mechanical Ventilator 40 07/19/16 06:00 55 07/19/16 04:19 93 40 07/19/16 04:00 54 07/19/16 04:00 40 07/19/16 04:00 98.7 55 25 144/65 94 07/19/16 02:00 55 07/19/16 00:00 61 07/19/16 00:00 98.8 61 20 142/65 99 07/19/16 00:00 40 07/18/16 22:17 96 40 07/18/16 22:00 57 07/18/16 21:52 22 07/18/16 20:02 96 40 07/18/16 20:00 98.6 84 21 136/61 97 07/18/16 20:00 58 07/18/16 20:00 40 07/18/16 19:00 99 Mechanical Ventilator 40 Intake & Output 07/19/16 07/19/16 07:00 19:00 Intake Total 2640 ml 809 ml Output Total 1640 ml 1090 ml Balance 1000 ml -281 ml Intake Oral 0 ml 0 ml IV Total 1300 ml 284 ml Tube Feeding 1100 ml 405 ml Other 240 ml 120 ml Output Urine Total 1550 ml 1075 ml Stool Total 50 ml 0 ml Drainage Total 40 ml 15 ml . Physical Exam CONSTITUTIONAL/GENERAL: This is an adequately nourished patient, remains orotracheally intubated in SICU bed. Sedated at time of my visit. No apparent distress. TUBES/LINES/DRAINS: ETT, OGT, dignishield, Russell catheter, SCD 1, soft restraints 2, cholecystostomy, SKIN: Incisions on left lower extremity without S/S of infection Skin temperature appropriate. Not diaphoretic. EYES: Pupils equal and round, and reactive. Does not track or respond to threat. ENT: Nose without bleeding or purulent drainage. NECK: Trachea midline. CARDIOVASCULAR: Regular rate and rhythm without murmurs, gallops, or rubs. No JVD. RESPIRATORY/CHEST: Symmetric, unlabored respirations. Lungs clear. GASTROINTESTINAL: Abdomen distended, firm. GENITOURINARY: Without palpable bladder distension. Russell catheter in place. MUSCULOSKELETAL: Edema in bilateral upper and lower extremities LYMPHATICS: Not examined. NEUROLOGICAL: Sedated. Does not awaken to voice/exam. Does not follow commands. PSYCHIATRIC: Unable to assess given patient's level of responsiveness. . . Diagnostic Tests Laboratory Laboratory Tests Test 07/17/16 07/19/16 04:55 05:15 Sodium Level 142 MEQ/L 142 MEQ/L (136-145) (136-145) Potassium Level 4.2 MEQ/L 3.4 MEQ/L (3.5-5.1) (3.5-5.1) Chloride Level 104 MEQ/L 106 MEQ/L (98-107) (98-107) Carbon Dioxide Level 25.2 MEQ/L 21.8 MEQ/L (21.0-32.0) (21.0-32.0) Anion Gap 13 MEQ/L (5-15) 14 MEQ/L (5-15) Blood Urea Nitrogen 118 MG/DL 108 MG/DL (7-18) (7-18) Creatinine 5.66 MG/DL 5.30 MG/DL (0.60-1.30) (0.60-1.30) Estimat Glomerular Filtration 10 ML/MIN (>89) 11 ML/MIN (>89) Rate Random Glucose 146 MG/DL 123 MG/DL (74-106) (74-106) Calcium Level 7.9 MG/DL 8.6 MG/DL (8.5-10.1) (8.5-10.1) Phosphorus Level 6.0 MG/DL (2.5-4.9) Albumin 1.8 GM/DL (3.4-5.0) . Result Diagram: 07/16/16 0600 07/19/16 0515 Microbiology Microbiology Date/Time Procedure Status Source Growth 07/15/16 16:33 Gram Stain - Final Complete Abscess Abdomen 07/15/16 16:33 Wound Culture - Final Complete Abscess Abdomen NO GROWTH IN 72 HRS.--AEROBICALLY OR ... . Imaging Last Impressions Abdomen X-Ray 07/17/16 06 Signed Impressions: Service Date/Time: Sunday, July 17, 2016 05:24 - CONCLUSION: Normal bowel gas pattern Joe Appiah Jr., MD Chest X-Ray 07/16/16 0600 Signed Impressions: Service Date/Time: Saturday, July 16, 2016 03:25 - CONCLUSION: Unchanged bibasilar infiltrates and effusions. Joe Appiah Jr., MD Percutaneous Cholangiogram 07/15/16 0000 Signed Impressions: Service Date/Time: Friday, July 15, 2016 15:38 - CONCLUSION: Uncomplicated percutaneous cholecystostomy as above. Aleksey Mendez MD Gall Bladder Ultrasound 07/14/16 Signed Impressions: Service Date/Time: Thursday, July 14, 2016 11:36 - CONCLUSION: Abnormal gallbladder as described above. Cholecystitis would be consideration. The patient is only minimally tender around the gallbladder. Donis Hernandez MD FACR Abdomen/Pelvis CT 07/13/16 Signed Impressions: Service Date/Time: Wednesday, July 13, 2016 17:29 - CONCLUSION: 1. Abnormal appearance of the gallbladder with wall thickening and possible pericholecystic fluid. No calcified stones. Recommend hepatobiliary tract scan to evaluate for acalculus cholecystitis. 2. Bilateral lower lung consolidation and bilateral pleural effusions. 3. Moderate amount of stool in the left colon. 4. Bilateral nonobstructing renal stones. Joe De Leon MD Neck Magnetic Resonance Angiography 07/11/16 0000 Signed Impressions: Service Date/Time: June 14:29 - CONCLUSION: 1. No evidence of carotid stenosis. 2. Short segment high-grade stenosis involving the mid right vertebral artery greater than 80 with a patent left vertebral artery Abhijeet Salinas MD Head Magnetic Resonance Angiography 07/11/16 0000 Signed Impressions: Service Date/Time: June 14:29 - CONCLUSION: 1. Evidence of atherosclerotic disease with focal distal left MCA branch stenosis and focal mid right CUSTODIAL FOREMAN stenosis. 2. No proximal high grade stenosis or aneurysm. Bladimir Gasca MD Brain MRI 07/10/16 0000 Signed Impressions: Service Date/Time: Sunday, July 10, 2016 15:03 - CONCLUSION: 1. Small punctate infarcts involving the left cerebellar hemisphere and deep white matter bilaterally in this patient with a background of amyloid angiopathy. No acute hemorrhage is seen. Abhijeet Salinas MD Renal Ultrasound 07/08/16 0000 Signed Impressions: Service Date/Time: Friday, July 08, 2016 17:16 - CONCLUSION: 1. Resistive indices could not be obtained on the right side into the patient's body habitus and shadowing bowel gas. Left renal artery resistive indices are within normal limits. 2. No significant abdominal aortic aneurysm identified status post repair. 3. Probable 7 mm nonobstructing midpole right renal calculus. 4. Tiny left lower pole cyst measuring 1.5 cm. Hamlet Vinson MD Aorta CTA 07/04/16 0000 Signed Impressions: Service Date/Time: June 19:53 - CONCLUSION: 1. Extensive aortic dissection extending from the proximal transverse aorta just distal to the origin of the left subclavian artery. Dissection extends distally through both superficial femoral arteries. 2. Occlusion of the right renal artery with absent perfusion of the right kidney. Dissection of the left renal artery with absent perfusion of the anterior left kidney. 3. 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 4. Occlusion of left external iliac artery and right internal iliac artery. 5. ET tube in satisfactory position. Dependent consolidation in both lungs. Probable mild liver cirrhosis. No obstruction or free fluid. Russell catheter in decompressed bladder. See above discussion. Rodriguez Jeff MD . Procedures 07/04/16: Right radial arterial line placement 07/04/16: Lumbar drain placement 07/04/16: Right IJ cortis placement 07/04/16: TEVAR and LLE fasciotomy. 07/06/16: Extubation 07/07/16: Reintubation 07/08/16: Platelet transfusion 07/08/16: Lumbar drain removed 07/11/16: Right IJ cortis removed 07/11/16: Left IJ CVL placement . Assessment and Plan Disease Oriented Problem List: (1) Dissecting aneurysm of thoracic aorta, Emerson type B Comment: s/p TAVER procedure . (2) Delirium (3) Respiratory failure (4) NSTEMI (non-ST elevated myocardial infarction) (5) Stroke Comment: MRI shows "small punctate infarcts involving the left cerebellar hemisphere and deep white matter bilaterally " in a background of amyloid angiopathy. . (6) Acute kidney insufficiency Comment: Probably a result of ischemic injury from dissection. . (7) HTN (hypertension) (8) Hepatitis C (9) Elevated troponin (10) Cholecystitis Comment: s/p cholecystostomy tube placement. . (11) COPD (chronic obstructive pulmonary disease) Symptom Scale: (1) Pain 0-10 Scale: Unable to quantify Comment: Possible causes of pain include postop surgical pain, circulation, edema, ETT, OG, invasive lines, immobility, bedbound status etc. Patient currently on titrated Diprivan drip. PRN fentanyl is available for breakthrough pain, but has not been administered in the past 24 hours. . (2) Dyspnea 0-10 Scale: Unable to quantify Comment: Patient remains orotracheally intubated, currently tolerating sedation vacation and CPAP trials. If or when the patient is extubated, whether intentionally or unintentionally, the patient's family is requesting that the patient NOT BE REINTUBATED. . Pertinent Non-Medical Issues Psychosocial: Patient was born in [place] and moved to [place] as young adult. Patient has a long history of polysubstance abuse which includes EtOH consumption and crack cocaine. The patient continues to drink 8-12 beers daily. The patient has never been and has no children. His mother and 2 of his siblings live locally and a third brother lives in [place]. Patient's mother states patient has been diagnosed with oppositional defiant disorder and is a history of medical noncompliance. Prior to his hospitalization, the patient was living with an elderly gentleman and they were helping each other. 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 The patient received disability approximately 1 week prior to this hospitalization. Spiritual: Hinduism nicolas Legal: Per [place] statutes, health care proxy decision making would fall to the patient's mother. Family members state while in the ED at [facility] patient identified his brother (Luis) as his medical decision maker, apparently the appropriate documentation and was not completed. Family members are in agreement and working together on patient's medical decisions. However the patient's mother and 2 other siblings (Olga and Jean Carlos) has opted out of decision making role, deferring to brother Luis. Ethical issues impacting care: No known ethical issues impacting care at this time . Important Contacts Nathalia Izquierdo, mother: [phone] Brother (Luis); [phone] [id number] (Chanda); [phone] Sister (Olga); [phone] Brother (Jean Carlos): [phone] . Prognosis Patient is a 60 year old man who was admitted with a type B aortic dissection. He is currently critically ill status post with TAVER and LLE fasciotomy. His past medical history is significant for polysubstance abuse (EtOH/crack cocaine) , HTN, CAD, COPD, hepatitis C/cirrhosis as well as medical noncompliance The patient currently remains orotracheally intubated and sedated. BUBBA - patient likely sustained severe ischemic injuries to both kidneys secondary to dissection involving renal arteries. It is certainly possible that this patient will be successfully extubated and upcoming days, eventually being stable enough to be discharged to SNF. However given the patient's past medical history, noncompliance, and this recent acute event, the patient has a strong probability into new decline and/or complications. . Code Status: No Code (patient is currently intubated. CODE STATUS changed to NO CODEDNR. If/when the patient is extubated, whether intentionally or unintentionally, the family requested the patient not be reintubated.) Plan * NO CODE/DNR * Code status changed to NO CODE/DNR. Patient was transferred from another hospital with a type B dissection. Patient's family stating the patient was a DNR at that facility. Requesting the patient's CODE STATUS be changed to NO CODE because the patient has previously verbalized he would not want cardiopulmonary resuscitation. Patient is currently intubated. If/and the patient is extubated, whether intentionally or unintentionally, the family requests that he not be reintubated. If the patient should experience cardiopulmonary arrest, they asked that he be allowed to pass peacefully and naturally at that time. All family members are in agreement that this is what the patient would want. * Decision-making: Patient's brother -- Luis is the health care proxy. Per [place] statutes, health care proxy decision making would fall to the patient's mother. However the patient's mother and 2 other siblings (Olga and Jean Carlos) has opted out of decision making role, deferring to brother Luis. * Goals: Patient's family has stated the patient would not have agreed to surgery if he had known what it would involve postoperatively. They feel that comfort focused goals are in line with what the patient would want, but are willing to give the patient a little more time. * Symptom managementpain: Possible causes of pain include postop surgical pain , circulation, edema, ETT, OG, invasive lines, immobility, bedbound status etc. Patient currently on titrated Diprivan drip. PRN fentanyl is available for breakthrough pain, but has not been administered in the past 24 hours. Palliative care will continue to monitor PRN were immense and make recommendations as indicated. No further recommendations at this time. * Symptom managementdyspnea: Patient remains orotracheally intubated, currently tolerating sedation vacation and CPAP trials. If or when the patient is extubated, whether intentionally or unintentionally, the patient's family is requesting that the patient NOT BE REINTUBATED. * Palliative care TREATING PLANT PUMPER met with patient's mother (Nathalia), brother (Luis), sister (Olga), and [id number] (Chanda) on 07/18/16. They report the patient has a history of substance abuse including EtOH abuse and crack cocaine use. Patient continues to use alcohol, drinking 8-12 beers daily. The patient has a history of medical noncompliance. The patient's family states he was recently hospitalized at another facility and left AMA as soon he has he was transferred from [facility] [place]. They state the patient would not have wanted this if he had known what it would entail. They do not believe the patient will tolerate/participate rehabilitation if/when he is discharged. Spoke to patient's brother, Jean Carlos Izquierdo, who lives in [place] via telephone. He is in agreement with other family members. * Emergency surgery has clearly saved this patient's life acutely. He continues to face the effects of his multiple cerebellar infarcts, kidney injury , subendocardial injury, and cholecystitis all complicating his history of COPD , Hep C, and substance abuse. Family feels strongly that he will be noncompliant with rehab (consistent with his diagnosis of 'oppositional defiant disorder") and would not want dialysis. 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 Family is unlikely to consent to trach/PEG under the circumstances. * If cardiovascular surgery feels strongly that there can be an outcome acceptable to the patient given the above family concerns, then family will need significant encouragement from CV surgery to agree to ongoing aggressive care. Palliative care will be available to support the family if CV surgery and family opt for ongoing aggressive care. Similarly, we will be available to help with withdrawal of life support and comfort care if CV surgery and family agree to transitioning to "comfort measures only." * Palliative care will continue to follow this patient throughout his hospitalization to establish trust, assist with symptom management and clarification of medical treatment goals. . Attestation To help prompt me to consider important information that might be impacting today's encounter and assessment, information from prior notes written by myself or my colleagues may have been "brought forward" into today's note. My signature on this note, however, is an attestation that I personally performed the exam, history, and/or decision-making noted today, and, unless otherwise indicated, the interactions with patient, family, and staff as well as the review of records all occurred today. I also attest that the listed assessment and stated plan reflect my best clinical judgment today based on the combination of historical information, prior notes, and today's exam/ interactions. When time spent is documented, it refers only to time spent today by the signer, or if indicated, combined time spent today by collaborating physician/nurse practitioner. . Obed De La Cruz MD Jul 19, 2016 19:56
[2016-07-19] MEDS: MELATONIN 5 MG TAB PO SCH (21:09)
[2016-07-19] MEDS: cloNIDine HCL 0.1 MG TAB PO PRN (22:40)
[2016-07-19] MEDS: hydrALAZINE HCL 20 MG/ML VIAL IV PRN (22:40)
[2016-07-20] VITALS (21 sets, daily range): BP systolic 120–139; BP diastolic 57–65; PULSE 52–64; RESP 18–22; TEMP 97.6–98.9; O2SAT 96–100
[2016-07-20] MEDS: PROPOFOL 1000 MG/100 ML INJ 100 ML IV SCH ×2 (02:17→05:22)
[2016-07-20] MEDS: CHLORHEXIDINE GLUCONATE 2 % 1 PACK (2 CLOTHS) TOP SCH (03:46)
[2016-07-20 05:07] LABS: AUTOMATED NEUTROPHIL # 12.6 TH/MM3 (1.8-7.7); BASOPHIL # 0.2 TH/MM3 (0-0.2); BASOPHIL % 1.5 % (0.0-2.0); EOSINOPHIL # 0.7 TH/MM3 (0-0.4); EOSINOPHIL % 4.4 % (0.0-4.0); HEMATOCRIT 26.5 % (39.0-51.0); LYMPH % 5.9 % (9.0-44.0); MEAN CELL VOLUME 94.3 FL (80.0-100.0); MEAN CORPUSCULAR HEMOGLOBIN 31.3 PG (27.0-34.0); MEAN CORPUSCULAR HGB CONC 33.2 % (32.0-36.0); MONO % 10.4 % (0.0-8.0); NEUT % 77.8 % (16.0-70.0); PLATELET COUNT 369 TH/MM3 (150-450); RED BLOOD COUNT 2.81 MIL/MM3 (4.50-5.90); RED CELL DISTRIBUTION WIDTH 14.3 % (11.6-17.2); WHITE BLOOD COUNT 16.1 TH/MM3 (4.0-11.0)
[2016-07-20 05:12] LABS: HEMO FLAGS AUTO DIFF
[2016-07-20] MEDS: ARTIFICIAL TEARS OPTH SOLN 15 ML BTL EACH EYE SCH ×3 (05:12→21:00)
[2016-07-20] MEDS: METOCLOPRAMIDE HCL 10 MG/2 ML VIAL IV PUSH SCH ×3 (05:12→20:59)
[2016-07-20] MEDS: BUMETANIDE INJ 1 MG/4 ML VIAL IV PUSH SCH ×3 (05:12→20:59)
[2016-07-20] MEDS: DOBUTamine 250 MG/D5W 250 ML PREMIX DRIP IV SCH ×2 (05:12→20:37)
[2016-07-20] MEDS: PIPERACIL-TAZO 2.25 GM PREMIX 50 ML IV SCH ×2 (05:12→17:04)
[2016-07-20 05:25] LABS: ALKALINE PHOSPHATASE 163 U/L (45-117); ALT (GPT) 31 U/L (12-78); ANION GAP 15 MEQ/L (5-15); AST (GOT) 55 U/L (15-37); BICARBONATE 20.6 MEQ/L (21.0-32.0); BLOOD UREA NITROGEN 102 MG/DL (7-18); CHLORIDE 105 MEQ/L (98-107); GLOMERULAR FILTRATION RATE 12 ML/MIN (>89); POTASSIUM 3.3 MEQ/L (3.5-5.1); SODIUM (NA) 141 MEQ/L (136-145); TOTAL BILIRUBIN ADULT 1.7 MG/DL (0.2-1.0)
[2016-07-20] MEDS: INSULIN NovoLIN REGULAR SUPPLEMENTAL SCALE SQ SCH ×4 (06:00→17:05)
[2016-07-20] MEDS: CHLORHEXIDINE 0.12% (ORAL KIT) 15 ML CUP MT SCH ×2 (07:25→20:34)
--- NOTE | 2016-07-20 07:39 | HHI.CCPN ---
Subjective Remarks/Hospital Course Hospital Course: This is a 60-year-old male who is transferred emergently from outside hospital with per report and acute type B dissection. Apparently the patient told his family member today that he had searing back pain and was taken to the emergency department. A CT of the chest at that time showed a type B dissection. The patient was intubated the outside facility and transferred to [place] for emergent evaluation management. Unfortunately, the patient is unable to provide any additional history at this time. I was at bedside and the patient arrived to the surgical intensive care unit. Dr. Long and I both evaluated the patient and when he arrived he was in a junctional bradycardia with heart rate in the 40s. He had obvious ST depressions in lead II on telemetry. Our initial concern was that we have extended the dissection into the type A dissection. We also did not have any CT of the abdomen and pelvis. On her physical exam, the patient had a cold left foot without pulses. I emergently placed a right radial arterial line, please see separate procedure note for details. We then went emergently to the CT scanner for repeat CT aortogram of the chest abdomen and pelvis to investigate the extent to which the dissection has extended. The CT aortogram demonstrated that this was still a type B dissection with the celiac artery being significantly compressed and possibly comprising flow from the dissection flap. The right kidney appears to be perfused off the false lumen and not the true lumen, and there is no contrast going down the left femoral artery. Patient was then brought back to the intensive care unit. His blood pressure is controlled on nicardipine infusion for goal systolic blood pressure less than 110. A 12-lead EKG at that time was done which demonstrated significant ST depressions in the inferior leads as well as the far lateral leads consistent with subendocardial ischemia. At the request of Dr. Long in anticipation of going emergently to the operative theater, I placed a lumbar drain for spinal protection, please see separate procedure note for details. At that point the patient was taken emergently to the operating room. Critical care medicine is been consulted to evaluate and manage the patient's type B dissection, hemodynamic's, acute hypoxic respiratory failure. 07/05: taken to OR for TEVAR overnight. lactate cleared overnight. uop adequate. Cr elevated to 1.8 this AM. He is on Coreg 50 mg by mouth 07/06: oliguric overnight. Cr rising. however, lactate cleared. other markers of end-organ perfusion better. likely ATN from time of dissection. awake following commands. moving bilateral lower extremities. clear CSF in lumbar drain. on intermittent norepinephrine to maintain spinal perfusion. 07/07: extubated yesterday, followed commands, good pulmonary mechanics. However , after extubation, became acutely delirious- probable combination of etoh withdraw and icu delirium, some pain. mental status waxed and waned throughout the day and ultimately reintubated overnight for worsening waning mental status and hypoxia. post-extubation it has been documented that he continues to move his bilateral lower extremities to painful stimuli and spontaneously. does not follow commands this morning. troponins downtrending. cardiology evaluated the patient yesterday, formal note pending, but per my conversation, plan was for ongoing conservative management as we are doing, and plan for nuc med stress test when stable. 07/08: still moving bilateral LEs spontaneously and w/d to pain. remains intubated with persistent agitation. hypoxia improving. platelets continue to fall, likely a combination of consumption, BUBBA, liver disease. will give unit of platelets prior to d/c lumbar drain. 07/09: Troponin spill resolving without evidence of ongoing injury. Major obstacle is agitation related to ETOH withdrawal followed by necessary sedation. Continue to work toward vent weaning. 07/10: Afebrile. Not following commands. Continues to be agitated for reasons above. Tolerating tube feeding at goal rate. Creatinine hopefully has plateaued. 07/11: CURRENT TEMPERATURE 100.2. MRI brain yesterday revealed left cellular restricted diffusion area likely acute infarct with small punctate areas within the coronal radiata possibly embolic event. Patient is arousable and will move all 4 extremities but not following commands. Left foot remains cool. Tolerating tube feeding. No bowel movement times 4 days. 07/12: Tmax 99.7. Currently 99. Noted right vertebral/distal left MCA/mid right DRAPERY HAND stenosis on imaging yesterday. Central line exchange from right to left side due to bleeding. No bowel movement for tolerating tube feedings with very low residuals. Still wean sedation. 07/13: Currently afebrile. Patient with soap side enema yesterday with's positive BM 3 overnight.. Go containment device currently in place. Currently hypertensive/when necessary labetalol and clonidine will be added. Noted liberalize SCI around 120 systolic blood pressure. Arousable on the ventilator and moves all 4 extremities spontaneously but not following commands. 07/14: Tmax 99.3. No significant bowel movement overnight. Currently hypotensive. Noted SCI around 120 systolic blood pressure recommended by vascular surgery. Arousable on ventilator on sedation vacation moves all 4 extremity spontaneously but not to commands. Subjective: 07/15: Afebrile. -2775 cc stool past 24 hours. Currently hypertensive. Bradycardic. Requiring antihypertensives. Plan for percutaneous cholecystostomy tube today. 07/16: Remains afebrile. CXR clearing. Renal injury without change, spontaneous urine acceptable. 07/17: No material change. Tolerates CPAP. 07/18: Family is talking with palliative Care service. 07/19: Will try CPAP with decreasing pressure support. DNR status clouds issue for extubation. 07/20: Failed SBT yesterday, could not tolerate lower pressure support. Objective Vital Signs Date Time Temp Pulse Resp B/P Pulse Ox O2 Delivery O2 Flow Rate FiO2 07/20/16 07:29 96 35 07/20/16 07:00 Mechanical Ventilator 07/20/16 06:00 52 07/20/16 04:00 98.5 19 120/57 Intake and Output 07/19/16 07/19/16 07/20/16 08:00 16:00 00:00 Intake Total 820 ml 809 ml 611 ml Output Total 570 ml 1090 ml 910 ml Balance 250 ml -281 ml -299 ml Result Diagram: 07/20/16 0315 07/20/16 0330 Imaging Last Impressions Chest X-Ray 07/15/16 0600 Signed Impressions: Service Date/Time: Friday, July 15, 2016 04:38 - CONCLUSION: Some worsening of the bilateral pulmonary infiltrates. Joe Appiah Jr., MD Abdomen X-Ray 07/15/16 0600 Signed Impressions: Service Date/Time: Friday, July 15, 2016 04:41 - CONCLUSION: No dilated bowel to suggest an obstruction. Joe Appiah Jr., MD Gall Bladder Ultrasound 07/14/16 0000 Signed Impressions: Service Date/Time: Thursday, July 14, 2016 11:36 - CONCLUSION: Abnormal gallbladder as described above. Cholecystitis would be consideration. The patient is only minimally tender around the gallbladder. Donis Hernandez MD FACR Abdomen/Pelvis CT 07/13/16 0000 Signed Impressions: Service Date/Time: Wednesday, July 13, 2016 17:29 - CONCLUSION: 1. Abnormal appearance of the gallbladder with wall thickening and possible pericholecystic fluid. No calcified stones. Recommend hepatobiliary tract scan to evaluate for acalculus cholecystitis. 2. Bilateral lower lung consolidation and bilateral pleural effusions. 3. Moderate amount of stool in the left colon. 4. Bilateral nonobstructing renal stones. Joe De Leon MD Neck Magnetic Resonance Angiography 07/11/16 0000 Signed Impressions: Service Date/Time: June 14:29 - CONCLUSION: 1. No evidence of carotid stenosis. 2. Short segment high-grade stenosis involving the mid right vertebral artery greater than 80 with a patent left vertebral artery Abhijeet Salinas MD Head Magnetic Resonance Angiography 07/11/16 0000 Signed Impressions: Service Date/Time: June 14:29 - CONCLUSION: 1. Evidence of atherosclerotic disease with focal distal left MCA branch stenosis and focal mid right DRAPERY HAND stenosis. 2. No proximal high grade stenosis or aneurysm. Bladimir Gasca MD Brain MRI 07/10/16 0000 Signed Impressions: Service Date/Time: Sunday, July 10, 2016 15:03 - CONCLUSION: 1. Small punctate infarcts involving the left cerebellar hemisphere and deep white matter bilaterally in this patient with a background of amyloid angiopathy. No acute hemorrhage is seen. Abhijeet Salinas MD Renal Ultrasound 07/08/16 0000 Signed Impressions: Service Date/Time: Friday, July 08, 2016 17:16 - CONCLUSION: 1. Resistive indices could not be obtained on the right side into the patient's body habitus and shadowing bowel gas. Left renal artery resistive indices are within normal limits. 2. No significant abdominal aortic aneurysm identified status post repair. 3. Probable 7 mm nonobstructing midpole right renal calculus. 4. Tiny left lower pole cyst measuring 1.5 cm. Hamlet Vinson MD Aorta CTA 07/04/16 0000 Signed Impressions: Service Date/Time: June 19:53 - CONCLUSION: 1. Extensive aortic dissection extending from the proximal transverse aorta just distal to the origin of the left subclavian artery. Dissection extends distally through both superficial femoral arteries. 2. Occlusion of the right renal artery with absent perfusion of the right kidney. Dissection of the left renal artery with absent perfusion of the anterior left kidney. 3. 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 4. Occlusion of left external iliac artery and right internal iliac artery. 5. ET tube in satisfactory position. Dependent consolidation in both lungs. Probable mild liver cirrhosis. No obstruction or free fluid. Russell catheter in decompressed bladder. See above discussion. Rodriguez Jeff MD Objective Remarks GENERAL: 60-year-old male. HEENT: Normocephalic. Atraumatic. Pupils 3 mm, reactive, NECK: Supple. IJ site after removal is dry. Orotracheally intubated CHEST: Clear to auscultation, no wheezes rales or rhonchi. CARDIOVASCULAR: RRR. S1, S2 no S4. No m,r ABDOMEN: Non-distended, soft. No rigidity. Active bowel sounds. MUSCULOSKELETAL: Distal pulses 2+. Medial aspect is sutured. Left foot is tepid. NEUROLOGICAL: Withdraws both upper and LEs to noxious stimuli. Opens eyes, appears to nod head to questions. Date of Insertion: Jul 11, 2016 Line: Central Venous Catheter Side: Left Location: Internal, Jugular A/P Assessment and Plan Neuro/Psych: Left cerebellar lacunar infarct Right vertebral/distal left MCA and mid right DRAPERY HAND stenosis Severe Agitated Delirium Alcohol Withdrawal - up to 15 beers daily Risk for spinal cord hypoperfusion Alcohol abuse History of polysubstance abuse including crack cocaine Lumbar drain placement - removed 07/08 Insomnia Propofol at 10-30 mcg/kg/m and as needed fentanyl 50 mcg every hour for sedation/analgesia while intubated -- Goal RASS -2 --Daily sedation vacation On melatonin 5 mg at night as needed for insomnia Daily thiamine 100 mg daily for EtOH use MRI brain 07/10 revealed left cerebellar cystic diffusion region with small punctate areas in the suarez radiata likely embolic. Possible amyloid. MRA head/neck revealed right vertebral 80% short segment stenosis, distal left MCA and mid right DRAPERY HAND stenosis EEG 07/10 revealed no seizure activity Delirium/Withdraw regimen: --Tizanidine 2mg po BID for pain adjuvant and to help with delirium --Seroquel 25 mg twice a day for delirium/weaning to off --Haldol 5mg iv q4h prn for breakthrough agitation. --Valium 5mg po q8hr for etoh withdraw, start slow taper over through 07/15 --Ativan 1mg iv q15min prn for withdraw symptoms --continue to avoid Precedex for now given recent junctional bradycardia, NSTEMI , and need for continued spinal cord protection with goal systolic blood pressure of 140 to 160 recommended per vascular surgery. -- Okayed with Dr. Long for aspirin 324 mg daily Respiratory: Acute hypoxic and hypercarbic respiratory failure -- PRVC 18/550/0.8/5/40 Vent bundle Bronchodilator therapy every 6 hours and albuterol every 2 hours when needed Head of bed 30 07/12 SAT/SBT approximately 3 hours.. Yesterday minimal due to multiple scans performed Wean FiO2 for goal SPO2 greater than 92% Follow-up a.m. chest x-ray showed small pleural effusions bilaterally/ essentially stable chest x-ray Noted possibly will need bilateral chest tubes if unable to successfully wean. Possible tracheostomy Cardiovascular: Postop day #16 T4 with left lower x-ray fasciotomy secondary to type B aortic dissection with renal/visceral and left lower extreme L perfusion Thoracic endovascular stent with left lower extremity fasciotomy/ compartments with [address] Long Acute type B dissection- secured Type II NSTEMI- Demand Ischemia- resolving Junction bradycardia- resolved. Lactic Acidosis- resolved. Goal SBP > 120 for spinal cord protection -- troponin downtrending. 6.81 -- elevated troponins likely combination of demand ischemia and poor renal clearance -- Cardiology: Dr. Mondragon following. plan for conservative management with myocardial perfusion scan when stable. -- 2d echo: EF 55%, no RWMA. 2-D echo 07/08 repeat EF 60-65%. Mild MR. [facility] dilated. RENO 49 mmHg --Cardiac output currently is 3.8. SVV is 13 As needed labetalol/clonidine for systolic blood pressure greater than 160 My partner added hydralazine overnight. --Use norepinephrine to maintain systolic blood pressure greater than 120 Renal: Acute kidney injury Acute Tubular Necrosis Right and left nephrolithiasis Likely secondary to hypoperfusion of the kidney from dissection, ATN -- FENa 07/07 1.2% consistent with ATN. Urine eos negative. Urine urea ordered -- order renal ultrasound with doppler. Revealed patent renal arteries bilaterally. Tiny 7 mm right renal calculus and 1.5 cm left renal cyst. -- Strict I/Os Russell placement to be maintained --nephrology consult 07/08 appreciated. No indication for dialysis at this point Avoid nephrotoxins drugs BUN/creatinine. Stabilized FEN/GI: Colonic ileus Acute protein calorie malnutrition- mild Non-anion gap metabolic acidosis- resolved. Hyperphosphatemia Hyper-magnesium Hyponatremia History of peptic ulcer disease Hepatitis C -from IV drug use Elevated AST TF: Nepro at goal 40 cc an hour --nutrition consult. Daily BMP --Currently on PhosLo 2668 mg 3 times a day for hyperphosphatemia Protonix for GI prophylaxis. Stephie-Colace twice a day for bowel regimen. MiraLAX twice a day lactulose 4 times daily. KUB revealed 8 cm transverse colon ileus. Positive results with sepsis enema yesterday. CT abdomen/those revealed wall thickening or gallbladder. 2 right midpole no obstructing kidney stones, left circumflex continues on, to semi-bilateral pleural effusions and large amount stool left colon. 2775 cc stools after colonoscopy/GoLYTELY regimen Plan for percutaneous cholecystostomy tube for gallbladder. Not a surgical candidate at this time. Heme/ID: Leukocytosislikely reactive Acute Blood Loss Anemia Thrombocytopenia Daily CBC No infectious etiology suspected this time Daily coags --thrombocytopenia is likely multifactorial from liver disease, consumptive from critical illness and dissection. Blood cultures/sputum/urine ordered 07/11 no growth to date Endocrine: Hyperglycemia of critical illness -- SSI, medium scale, every 6 hours Prophylaxis: GI Prophylaxis Protonix 40 mg IV every 24 DVT Prophylaxis -- SCDs/heparin The patient may receive heparin subcutaneous every 12. Patient may additionally receive aspirin, but not Plavix. Lines: 07/13 -radial arterial line --07/04-07/11 right IJ cortis -- Left IJ CVL 07/11 present Overall impression: Little progress. Renal function unchanged. Spontaneous urine acceptable. Family discussing trach vs extubation attempt. Carlos Campos MD Jul 20, 2016 07:39
[2016-07-20] MEDS: QUEtiapine FUMARATE 25 MG TAB PO SCH ×2 (08:20→20:35)
[2016-07-20] MEDS: MULTIVITAMIN TAB PO SCH (08:20)
[2016-07-20] MEDS: CALCIUM ACETATE 667 MG CAP PO SCH ×3 (08:20→17:04)
[2016-07-20] MEDS: THIAMINE HCL 100 MG TAB PO SCH (08:20)
[2016-07-20] MEDS: ASPIRIN 81 MG CHEW TAB CHEW SCH (08:20)
[2016-07-20] MEDS: DOCUSATE SODIUM 50 MG/SENNA 8.6 MG TAB PO SCH ×2 (08:20→20:35)
[2016-07-20] MEDS: PANTOPRAZOLE SODIUM 40 MG VIAL IV SCH (08:21)
[2016-07-20] MEDS: POLYETHYLENE GLYCOL 17 GM PKG OG-TUBE SCH ×2 (08:21→20:34)
[2016-07-20] MEDS: LACTULOSE SYRUP 20 GM/30 ML CUP PO SCH ×4 (08:21→20:35)
[2016-07-20] MEDS: SODIUM CHLORIDE 0.9% FLUSH 10 ML FLUSH IVF SCH (08:21)
[2016-07-20] MEDS: HEPARIN SODIUM - SQ 10,000 UNITS/ML VIAL SQ SCH ×2 (08:21→20:36)
[2016-07-20 09:29] LABS: BANDS 11 % (0-6); BASOPHILS 1 % (0-2); EOSINOPHILS 4 % (0-4); NEUTROPHIL # MANUAL DIFF 12.6 TH/MM3 (1.8-7.7); POLYS (SEG NEUTROPHILS) 67 % (16-70); WBC DIFF SAMPLE 100
[2016-07-20 09:30] LABS: PLATELET ESTIMATE SMEAR NORMAL (NORMAL); PLATELET MORPHOLOGY NORMAL (NORMAL); SCAN/DIFF FINAL DIFF MANUAL
--- NOTE | 2016-07-20 14:18 | PD.VS.PN ---
Subjective Subjective/Hospital Course Spoke with brother, Herminio, at bedside and by phone. Discussed possible tracheostomy next week. Objective Vitals/I&O Date Time Temp Pulse Resp B/P Pulse Ox O2 Delivery O2 Flow Rate FiO2 07/20/16 14:00 60 07/20/16 13:01 35 07/20/16 12:00 97.6 55 22 131/62 100 07/20/16 12:00 35 07/20/16 12:00 53 07/20/16 10:55 100 35 07/20/16 10:00 54 07/20/16 08:00 97.7 52 21 128/60 99 07/20/16 08:00 53 07/20/16 08:00 35 07/20/16 07:29 96 35 07/20/16 07:00 95 Mechanical Ventilator 40 07/20/16 06:00 52 07/20/16 04:00 35 07/20/16 04:00 98.5 54 19 120/57 98 07/20/16 04:00 54 07/20/16 03:32 97 35 07/20/16 02:00 58 07/20/16 00:31 97 35 07/20/16 00:00 35 07/20/16 00:00 98.9 64 18 135/65 96 07/20/16 00:00 64 07/19/16 22:00 58 07/19/16 20:00 60 07/19/16 20:00 98.6 60 20 190/79 100 07/19/16 20:00 40 07/19/16 19:47 100 35 07/19/16 19:00 100 Mechanical Ventilator 40 07/19/16 18:00 59 07/19/16 16:00 59 07/19/16 16:00 98.5 58 20 156/57 100 07/19/16 16:00 40 07/20/16 07/20/16 07/20/16 07:00 15:00 23:00 Intake Total 644 ml 739 ml Output Total 810 ml 1230 ml Balance -166 ml -491 ml Physical Exam Intubated and sedated with diprovan. no vasopressors. HR reg. SIMV/PS vent, decreased BS ab slightly distended with cholecystostomy drain in place. Triphasic left pedal signals. Laboratory Laboratory Tests Test 07/20/16 07/20/16 03:15 03:30 White Blood Count 16.1 Red Blood Count 2.81 Hemoglobin 8.8 Hematocrit 26.5 Mean Corpuscular Volume 94.3 Mean Corpuscular Hemoglobin 31.3 Mean Corpuscular Hemoglobin 33.2 Concent Red Cell Distribution Width 14.3 Platelet Count 369 Mean Platelet Volume 7.4 Neutrophils (%) (Auto) 77.8 Lymphocytes (%) (Auto) 5.9 Monocytes (%) (Auto) 10.4 Eosinophils (%) (Auto) 4.4 Basophils (%) (Auto) 1.5 Neutrophils # (Auto) 12.6 Lymphocytes # (Auto) 1.0 Monocytes # (Auto) 1.7 Eosinophils # (Auto) 0.7 Basophils # (Auto) 0.2 CBC Comment AUTO DIFF Differential Total Cells 100 Counted Neutrophils % (Manual) 67 Band Neutrophils % 11 Lymphocytes % 10 Monocytes % 7 Eosinophils % 4 Basophils % 1 Neutrophils # (Manual) 12.6 Differential Comment FINAL DIFF MANUAL Platelet Estimate NORMAL Platelet Morphology Comment NORMAL Red Cell Morphology Comment NORMAL Sodium Level 141 Potassium Level 3.3 Chloride Level 105 Carbon Dioxide Level 20.6 Anion Gap 15 Blood Urea Nitrogen 102 Creatinine 4.90 Estimat Glomerular Filtration 12 Rate Random Glucose 125 Calcium Level 8.4 Total Bilirubin 1.7 Aspartate Amino Transf 55 (AST/SGOT) Alanine Aminotransferase 31 (ALT/SGPT) Alkaline Phosphatase 163 Total Protein 6.5 Albumin 1.7 Prealbumin 15 Date/Time Procedure Status Source Growth 07/15/16 16:33 Gram Stain - Final Complete Abscess Abdomen 07/15/16 16:33 Wound Culture - Final Complete Abscess Abdomen NO GROWTH IN 72 HRS.--AEROBICALLY OR ... 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 Neuro-sedation held for neurocheck. CV- HDS, no pressor with pedal signals pulm-Continued weaning of ventilator ab-cholecystostomy tube 15cc Q shift. FEN/- continue diuresis and replace lytes. Spoke with brother Herminio about patient. Plan for continued supportive care over the weekend. Jamaal Strauss DO, FACS [place] Operator of Vascular Surgery YUE/Jamaal Payne DO Jul 20, 2016 14:18
--- NOTE | 2016-07-20 16:51 | HHI.NPPN ---
Subjective History of Present Illness This patient is a 60-year-old male apparently with a history of previous alcohol and crack usage also has a history of hepatitis C, coronary disease and hypertension as well as medical noncompliance. Patient was admitted with a type B aortic dissection. CTA thoracic aorta and abdominal aorta performed July 04, 2016 revealed occluded right renal artery as well as perfusion only to the left posterior aspect of the left kidney. Patient status post emergent TAVA, left lower extremity fasciectomy mention of previous nonperfusion to that extremity. Patient's creatinine level was within normal range from previous records prior to this admission however patient had evidence of renal sufficiency on presentation and his creatinine level has continued to rise to a level of 4.75 Date of Consultation with marginal urine output. Interval History Patient opens eyes but is not following simple commands. Still ventilatory dependent. Review of Systems General General Remarks Unobtainable because of clinical status. Objective Data Data 07/19/16 07/20/16 19:00 07:00 Intake Total 809 ml 1255 ml Output Total 1090 ml 1720 ml Balance -281 ml -465 ml Intake Oral 0 ml IV Total 284 ml 463 ml Tube Feeding 405 ml 612 ml Other 120 ml 180 ml Output Urine Total 1075 ml 1700 ml Stool Total 0 ml 0 ml Drainage Total 15 ml 20 ml Vital Signs Date Time Temp Pulse Resp B/P Pulse Ox O2 Delivery O2 Flow Rate FiO2 07/20/16 16:07 99 35 07/20/16 16:00 35 07/20/16 16:00 98.4 53 22 139/63 99 07/20/16 16:00 55 07/20/16 15:27 98 35 07/20/16 14:00 60 07/20/16 13:01 35 07/20/16 12:00 97.6 55 22 131/62 100 07/20/16 12:00 35 07/20/16 12:00 53 07/20/16 10:55 100 35 07/20/16 10:00 54 07/20/16 08:00 97.7 52 21 128/60 99 07/20/16 08:00 53 07/20/16 08:00 35 07/20/16 07:29 96 35 07/20/16 07:00 95 Mechanical Ventilator 40 07/20/16 06:00 52 07/20/16 04:00 35 07/20/16 04:00 98.5 54 19 120/57 98 07/20/16 04:00 54 07/20/16 03:32 97 35 07/20/16 02:00 58 07/20/16 00:31 97 35 07/20/16 00:00 35 07/20/16 00:00 98.9 64 18 135/65 96 07/20/16 00:00 64 07/19/16 22:00 58 07/19/16 20:00 60 07/19/16 20:00 98.6 60 20 190/79 100 07/19/16 20:00 40 07/19/16 19:47 100 35 07/19/16 19:00 100 Mechanical Ventilator 40 07/19/16 18:00 59 -: 07/20/16 0315 07/20/16 0330 Physical Exam General Appearance: No Acute Distress, Comfortable Pulmonary Resp Exam: Clear Bilaterally, Breath Sounds Equal, No Distress Cardiology CV Exam: Regular, Normal Sinus Rhythm Gastrointestinal/Abdomen GI Exam: Soft, Non-Tender Integumentary Skin Exam: Clear, Warm Extremeties Extremities Exam: Moderate Edema (edema upper and lower extremities however is improving. 1-2+.), Dependent Edema Assessment/Plan Discussed Condition With: Sibling Problem List: (1) Acute kidney insufficiency Plan: The patient is still severely azotemic however the creatinine level has improved these last few days and his urine output appears to be fairly good. Continue diuretics as ordered. I discussed the above with the family member i.e. his brother who is by the bedside. Apparently consideration is being given to withdrawal. According to the brother patient has a history of noncompliance previously. I will defer to family and palliative care as far as aggressiveness of care is concerned. Medications should be adjusted for the patient's estimated GFR if clinically indicated. Avoid agents with significant potential for nephrotoxicity possible including NSAIDs for analgesia, iodine contrast agents if possible. Gadolinium is contraindicated if the GFR is below 30. (2) Hepatitis C Plan: Not playing a role as far as his acute renal failure is concerned in this setting. (3) HTN (hypertension) (4) Hyperphosphatemia Plan: Secondary to renal failure. Noted phosphate binder started. Plan Eufemia Walters MD Jul 20, 2016 16:51
[2016-07-20] MEDS: SODIUM CHLOR 0.9% 1000 ML INJ 1,000 ML IV SCH ×2 (20:33→20:39)
[2016-07-20] MEDS: MELATONIN 5 MG TAB PO SCH (20:35)
[2016-07-21] VITALS (18 sets, daily range): BP systolic 108–159; BP diastolic 55–70; PULSE 46–66; RESP 18–24; TEMP 97.7–99; O2SAT 95–100
[2016-07-21] MEDS: PROPOFOL 1000 MG/100 ML INJ 100 ML IV SCH ×2 (01:49→10:52)
[2016-07-21] MEDS: CHLORHEXIDINE GLUCONATE 2 % 1 PACK (2 CLOTHS) TOP SCH (03:31)
[2016-07-21 05:17] LABS: BICARBONATE 23.1 MEQ/L (21.0-32.0); POTASSIUM 3.3 MEQ/L (3.5-5.1)
[2016-07-21] MEDS: INSULIN NovoLIN REGULAR SUPPLEMENTAL SCALE SQ SCH ×4 (06:00→18:00)
[2016-07-21] MEDS: PIPERACIL-TAZO 2.25 GM PREMIX 50 ML IV SCH ×2 (06:32→16:42)
[2016-07-21] MEDS: BUMETANIDE INJ 1 MG/4 ML VIAL IV PUSH SCH ×3 (06:32→21:32)
[2016-07-21] MEDS: METOCLOPRAMIDE HCL 10 MG/2 ML VIAL IV PUSH SCH ×3 (06:33→21:33)
[2016-07-21] MEDS: ARTIFICIAL TEARS OPTH SOLN 15 ML BTL EACH EYE SCH ×3 (06:33→21:33)
[2016-07-21] MEDS: CHLORHEXIDINE 0.12% (ORAL KIT) 15 ML CUP MT SCH ×2 (08:00→20:20)
[2016-07-21] MEDS: DOCUSATE SODIUM 50 MG/SENNA 8.6 MG TAB PO SCH ×2 (08:22→20:19)
[2016-07-21] MEDS: ASPIRIN 81 MG CHEW TAB CHEW SCH (08:22)
[2016-07-21] MEDS: MULTIVITAMIN TAB PO SCH (08:22)
[2016-07-21] MEDS: POLYETHYLENE GLYCOL 17 GM PKG OG-TUBE SCH ×2 (08:22→20:20)
[2016-07-21] MEDS: CALCIUM ACETATE 667 MG CAP PO SCH ×3 (08:22→16:43)
[2016-07-21] MEDS: THIAMINE HCL 100 MG TAB PO SCH (08:22)
[2016-07-21] MEDS: LACTULOSE SYRUP 20 GM/30 ML CUP PO SCH ×4 (08:22→20:19)
[2016-07-21] MEDS: QUEtiapine FUMARATE 25 MG TAB PO SCH ×2 (08:22→20:19)
[2016-07-21] MEDS: PANTOPRAZOLE SODIUM 40 MG VIAL IV SCH (08:23)
[2016-07-21] MEDS: HEPARIN SODIUM - SQ 10,000 UNITS/ML VIAL SQ SCH ×2 (08:23→20:20)
[2016-07-21] MEDS: SODIUM CHLORIDE 0.9% FLUSH 10 ML FLUSH IVF SCH (08:24)
--- NOTE | 2016-07-21 11:14 | HHI.CCPN ---
Subjective Remarks/Hospital Course Hospital Course: This is a 60-year-old male who is transferred emergently from outside hospital with per report and acute type B dissection. Apparently the patient told his family member today that he had searing back pain and was taken to the emergency department. A CT of the chest at that time showed a type B dissection. The patient was intubated the outside facility and transferred to [place] for emergent evaluation management. Unfortunately, the patient is unable to provide any additional history at this time. I was at bedside and the patient arrived to the surgical intensive care unit. Dr. Long and I both evaluated the patient and when he arrived he was in a junctional bradycardia with heart rate in the 40s. He had obvious ST depressions in lead II on telemetry. Our initial concern was that we have extended the dissection into the type A dissection. We also did not have any CT of the abdomen and pelvis. On her physical exam, the patient had a cold left foot without pulses. I emergently placed a right radial arterial line, please see separate procedure note for details. We then went emergently to the CT scanner for repeat CT aortogram of the chest abdomen and pelvis to investigate the extent to which the dissection has extended. The CT aortogram demonstrated that this was still a type B dissection with the celiac artery being significantly compressed and possibly comprising flow from the dissection flap. The right kidney appears to be perfused off the false lumen and not the true lumen, and there is no contrast going down the left femoral artery. Patient was then brought back to the intensive care unit. His blood pressure is controlled on nicardipine infusion for goal systolic blood pressure less than 110. A 12-lead EKG at that time was done which demonstrated significant ST depressions in the inferior leads as well as the far lateral leads consistent with subendocardial ischemia. At the request of Dr. Long in anticipation of going emergently to the operative theater, I placed a lumbar drain for spinal protection, please see separate procedure note for details. At that point the patient was taken emergently to the operating room. Critical care medicine is been consulted to evaluate and manage the patient's type B dissection, hemodynamic's, acute hypoxic respiratory failure. 07/05: taken to OR for TEVAR overnight. lactate cleared overnight. uop adequate. Cr elevated to 1.8 this AM. He is on Coreg 50 mg by mouth 07/06: oliguric overnight. Cr rising. however, lactate cleared. other markers of end-organ perfusion better. likely ATN from time of dissection. awake following commands. moving bilateral lower extremities. clear CSF in lumbar drain. on intermittent norepinephrine to maintain spinal perfusion. 07/07: extubated yesterday, followed commands, good pulmonary mechanics. However , after extubation, became acutely delirious- probable combination of etoh withdraw and icu delirium, some pain. mental status waxed and waned throughout the day and ultimately reintubated overnight for worsening waning mental status and hypoxia. post-extubation it has been documented that he continues to move his bilateral lower extremities to painful stimuli and spontaneously. does not follow commands this morning. troponins downtrending. cardiology evaluated the patient yesterday, formal note pending, but per my conversation, plan was for ongoing conservative management as we are doing, and plan for nuc med stress test when stable. 07/08: still moving bilateral LEs spontaneously and w/d to pain. remains intubated with persistent agitation. hypoxia improving. platelets continue to fall, likely a combination of consumption, BUBBA, liver disease. will give unit of platelets prior to d/c lumbar drain. 07/09: Troponin spill resolving without evidence of ongoing injury. Major obstacle is agitation related to ETOH withdrawal followed by necessary sedation. Continue to work toward vent weaning. 07/10: Afebrile. Not following commands. Continues to be agitated for reasons above. Tolerating tube feeding at goal rate. Creatinine hopefully has plateaued. 07/11: CURRENT TEMPERATURE 100.2. MRI brain yesterday revealed left cellular restricted diffusion area likely acute infarct with small punctate areas within the coronal radiata possibly embolic event. Patient is arousable and will move all 4 extremities but not following commands. Left foot remains cool. Tolerating tube feeding. No bowel movement times 4 days. 07/12: Tmax 99.7. Currently 99. Noted right vertebral/distal left MCA/mid right PARTS CLERK stenosis on imaging yesterday. Central line exchange from right to left side due to bleeding. No bowel movement for tolerating tube feedings with very low residuals. Still wean sedation. 07/13: Currently afebrile. Patient with soap side enema yesterday with's positive BM 3 overnight.. Go containment device currently in place. Currently hypertensive/when necessary labetalol and clonidine will be added. Noted liberalize SCI around 120 systolic blood pressure. Arousable on the ventilator and moves all 4 extremities spontaneously but not following commands. 07/14: Tmax 99.3. No significant bowel movement overnight. Currently hypotensive. Noted SCI around 120 systolic blood pressure recommended by vascular surgery. Arousable on ventilator on sedation vacation moves all 4 extremity spontaneously but not to commands. Subjective: 07/15: Afebrile. -2775 cc stool past 24 hours. Currently hypertensive. Bradycardic. Requiring antihypertensives. Plan for percutaneous cholecystostomy tube today. 07/16: Remains afebrile. CXR clearing. Renal injury without change, spontaneous urine acceptable. 07/17: No material change. Tolerates CPAP. 07/18: Family is talking with palliative Care service. 07/19: Will try CPAP with decreasing pressure support. DNR status clouds issue for extubation. 07/20: Failed SBT yesterday, could not tolerate lower pressure support. 07/21: Tolerates 5/5 SBT for several hours. Unresponsive, no eye opening today. No improvement in motor function. Extensive discussion with his brother Luis yesterday. Family is pretty consolidated in their wish to withdraw artificial support. Hopefully we can discuss options with all principals Friday. Objective Vital Signs Date Time Temp Pulse Resp B/P Pulse Ox O2 Delivery O2 Flow Rate FiO2 07/21/16 10:00 53 07/21/16 08:30 35 07/21/16 08:00 99.0 24 141/65 98 07/21/16 07:00 Mechanical Ventilator Intake and Output 07/20/16 07/20/16 07/21/16 08:00 16:00 00:00 Intake Total 644 ml 739 ml 584 ml Output Total 810 ml 1230 ml 1120 ml Balance -166 ml -491 ml -536 ml Result Diagram: 07/20/165 07/21/168 Imaging Last Impressions Chest X-Ray 07/15/16599 Signed Impressions: Service Date/Time: Friday, July 15, 2016 04:38 - CONCLUSION: Some worsening of the bilateral pulmonary infiltrates. Joe Appiah Jr., MD Abdomen X-Ray 07/15/16 06 Signed Impressions: Service Date/Time: Friday, July 15, 2016 04:41 - CONCLUSION: No dilated bowel to suggest an obstruction. Joe Appiah Jr., MD Gall Bladder Ultrasound 07/14/16 0000 Signed Impressions: Service Date/Time: Thursday, July 14, 2016 11:36 - CONCLUSION: Abnormal gallbladder as described above. Cholecystitis would be consideration. The patient is only minimally tender around the gallbladder. Donis Hernandez MD FACR Abdomen/Pelvis CT 07/13/16 0000 Signed Impressions: Service Date/Time: Wednesday, July 13, 2016 17:29 - CONCLUSION: 1. Abnormal appearance of the gallbladder with wall thickening and possible pericholecystic fluid. No calcified stones. Recommend hepatobiliary tract scan to evaluate for acalculus cholecystitis. 2. Bilateral lower lung consolidation and bilateral pleural effusions. 3. Moderate amount of stool in the left colon. 4. Bilateral nonobstructing renal stones. Joe De Leon MD Neck Magnetic Resonance Angiography 07/11/16 0000 Signed Impressions: Service Date/Time: June 14:29 - CONCLUSION: 1. No evidence of carotid stenosis. 2. Short segment high-grade stenosis involving the mid right vertebral artery greater than 80 with a patent left vertebral artery Abhijeet Salinas MD Head Magnetic Resonance Angiography 07/11/16 0000 Signed Impressions: Service Date/Time: June 14:29 - CONCLUSION: 1. Evidence of atherosclerotic disease with focal distal left MCA branch stenosis and focal mid right PARTS CLERK stenosis. 2. No proximal high grade stenosis or aneurysm. Bladimir Gasca MD Brain MRI 07/10/16 0000 Signed Impressions: Service Date/Time: Sunday, July 10, 2016 15:03 - CONCLUSION: 1. Small punctate infarcts involving the left cerebellar hemisphere and deep white matter bilaterally in this patient with a background of amyloid angiopathy. No acute hemorrhage is seen. Abhijeet Salinas MD Renal Ultrasound 07/08/16 0000 Signed Impressions: Service Date/Time: Friday, July 08, 2016 17:16 - CONCLUSION: 1. Resistive indices could not be obtained on the right side into the patient's body habitus and shadowing bowel gas. Left renal artery resistive indices are within normal limits. 2. No significant abdominal aortic aneurysm identified status post repair. 3. Probable 7 mm nonobstructing midpole right renal calculus. 4. Tiny left lower pole cyst measuring 1.5 cm. Hamlet Vinson MD Aorta CTA 07/04/16 0000 Signed Impressions: Service Date/Time: June 19:53 - CONCLUSION: 1. Extensive aortic dissection extending from the proximal transverse aorta just distal to the origin of the left subclavian artery. Dissection extends distally through both superficial femoral arteries. 2. Occlusion of the right renal artery with absent perfusion of the right kidney. Dissection of the left renal artery with absent perfusion of the anterior left kidney. 3. 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 4. Occlusion of left external iliac artery and right internal iliac artery. 5. ET tube in satisfactory position. Dependent consolidation in both lungs. Probable mild liver cirrhosis. No obstruction or free fluid. Russell catheter in decompressed bladder. See above discussion. Rodriguez Jeff MD Objective Remarks GENERAL: 60-year-old male. HEENT: Normocephalic. Atraumatic. Pupils 3 mm, reactive, NECK: Supple. Orotracheally intubated. CHEST: Clear to auscultation, no wheezes rales or rhonchi. CARDIOVASCULAR: RRR. S1, S2 no S4. No m,r ABDOMEN: Non-distended, soft. No rigidity. Active bowel sounds. MUSCULOSKELETAL: Distal pulses 2+. Left foot is numb. NEUROLOGICAL: Withdraws both upper and LEs to noxious stimuli. Opens eyes intermittently, has appeared previously to nod head to questions. Unresponsive today. Date of Insertion: Jul 11, 2016 Line: Central Venous Catheter Side: Left Location: Internal, Jugular A/P Assessment and Plan Neuro/Psych: Left cerebellar lacunar infarct Right vertebral/distal left MCA and mid right PARTS CLERK stenosis Severe Agitated Delirium Alcohol Withdrawal - up to 15 beers daily Risk for spinal cord hypoperfusion Alcohol abuse History of polysubstance abuse including crack cocaine Lumbar drain placement - removed 07/08 Insomnia On melatonin 5 mg at night as needed for insomnia Daily thiamine 100 mg daily for EtOH use MRI brain 07/10 revealed left cerebellar cystic diffusion region with small punctate areas in the suarez radiata likely embolic. Possible amyloid. MRA head/neck revealed right vertebral 80% short segment stenosis, distal left MCA and mid right PARTS CLERK stenosis EEG 07/10 revealed no seizure activity Delirium/Withdraw regimen: --Tizanidine 2mg po BID for pain adjuvant and to help with delirium --Seroquel 25 mg twice a day for delirium/weaning to off --Haldol 5mg iv q4h prn for breakthrough agitation. --Valium 5mg po q8hr for etoh withdraw, start slow taper over through 07/15 --Ativan 1mg iv q15min prn for withdraw symptoms --continue to avoid Precedex for now given recent junctional bradycardia, NSTEMI , and need for continued spinal cord protection with goal systolic blood pressure of 140 to 160 recommended per vascular surgery. -- Okayed with Dr. Long for aspirin 324 mg daily Respiratory: Acute hypoxic and hypercarbic respiratory failure -- PRVC 18/550/0.8/5/40 Vent bundle Bronchodilator therapy every 6 hours and albuterol every 2 hours when needed Head of bed 30 07/12 SAT/SBT approximately 3 hours.. Yesterday minimal due to multiple scans performed Wean FiO2 for goal SPO2 greater than 92% Follow-up a.m. chest x-ray showed small pleural effusions bilaterally/ essentially stable chest x-ray Noted possibly will need bilateral chest tubes if unable to successfully wean. Possible tracheostomy Cardiovascular: Postop day #17 T4 with left lower x-ray fasciotomy secondary to type B aortic dissection with renal/visceral and left lower extreme L perfusion Thoracic endovascular stent with left lower extremity fasciotomy/ compartments with [address] Long Acute type B dissection- secured Type II NSTEMI- Demand Ischemia- resolving Junction bradycardia- resolved. Lactic Acidosis- resolved. Goal SBP > 120 for spinal cord protection -- troponin downtrending. 6.81 -- elevated troponins likely combination of demand ischemia and poor renal clearance -- Cardiology: Dr. Mondragon following. plan for conservative management with myocardial perfusion scan when stable. -- 2d echo: EF 55%, no RWMA. 2-D echo 07/08 repeat EF 60-65%. Mild MR. [facility] dilated. RENO 49 mmHg --Cardiac output currently is 3.8. SVV is 13 As needed labetalol/clonidine for systolic blood pressure greater than 160 My partner added hydralazine overnight. --Use norepinephrine to maintain systolic blood pressure greater than 120 Renal: Acute kidney injury Acute Tubular Necrosis Right and left nephrolithiasis Likely secondary to hypoperfusion of the kidney from dissection, ATN -- FENa 07/07 1.2% consistent with ATN. Urine eos negative. Urine urea ordered -- order renal ultrasound with doppler. Revealed patent renal arteries bilaterally. Tiny 7 mm right renal calculus and 1.5 cm left renal cyst. -- Strict I/Os Russell placement to be maintained --nephrology consult 07/08 appreciated. No indication for dialysis at this point Avoid nephrotoxins drugs BUN/creatinine. Stabilized FEN/GI: Colonic ileus Acute protein calorie malnutrition- mild Non-anion gap metabolic acidosis- resolved. Hyperphosphatemia Hyper-magnesium Hyponatremia History of peptic ulcer disease Hepatitis C -from IV drug use Elevated AST TF: Nepro at goal 40 cc an hour --nutrition consult. Daily BMP --Currently on PhosLo 2668 mg 3 times a day for hyperphosphatemia Protonix for GI prophylaxis. Stephie-Colace twice a day for bowel regimen. MiraLAX twice a day lactulose 4 times daily. KUB revealed 8 cm transverse colon ileus. Positive results with sepsis enema yesterday. CT abdomen/those revealed wall thickening or gallbladder. 2 right midpole no obstructing kidney stones, left circumflex continues on, to semi-bilateral pleural effusions and large amount stool left colon. Plan for percutaneous cholecystostomy tube for gallbladder. Not a surgical candidate at this time. Heme/ID: Leukocytosislikely reactive Acute Blood Loss Anemia Thrombocytopenia Daily CBC No infectious etiology suspected this time Daily coags --thrombocytopenia is likely multifactorial from liver disease, consumptive from critical illness and dissection. Blood cultures/sputum/urine ordered 07/11 no growth to date Endocrine: Hyperglycemia of critical illness -- SSI, medium scale, every 6 hours Prophylaxis: GI Prophylaxis Protonix 40 mg IV every 24 DVT Prophylaxis -- SCDs/heparin The patient may receive heparin subcutaneous every 12. Patient may additionally receive aspirin, but not Plavix. Lines: 07/13 -radial arterial line --07/04-07/11 right IJ cortis -- Left IJ CVL 07/11 present - out Overall impression: Little progress. Renal function unchanged. Spontaneous urine acceptable. Family discussing trach vs extubation attempt; requests withdrawal. We need to sort out his reasonable chance of meaningful survival for him. Carlos Campos MD Jul 21, 2016 11:14
[2016-07-21] MEDS: DOBUTamine 250 MG/D5W 250 ML PREMIX DRIP IV SCH (13:05)
--- NOTE | 2016-07-21 14:11 | PD.VS.PN ---
Subjective Subjective/Hospital Course No family at bedside. Objective Vitals/I&O Date Time Temp Pulse Resp B/P Pulse Ox O2 Delivery O2 Flow Rate FiO2 07/21/16 12:00 40 07/21/16 12:00 60 07/21/16 12:00 97.9 56 18 137/61 100 07/21/16 11:33 100 35 07/21/16 10:00 53 07/21/16 08:30 35 07/21/16 08:00 40 07/21/16 08:00 99.0 62 24 141/65 98 07/21/16 08:00 62 07/21/16 07:25 97 35 07/21/16 07:00 98 Mechanical Ventilator 40 07/21/16 06:00 55 07/21/16 04:00 40 07/21/16 04:00 56 07/21/16 04:00 98.8 56 19 126/59 97 07/21/16 03:39 98 35 07/21/16 02:00 62 07/21/16 00:00 56 07/21/16 00:00 98.6 56 20 108/55 99 07/21/16 00:00 40 07/20/16 23:49 98 35 07/20/16 22:00 56 07/20/16 20:00 98.0 56 20 126/60 100 07/20/16 20:00 40 07/20/16 20:00 56 07/20/16 19:34 100 35 07/20/16 19:00 99 Mechanical Ventilator 40 07/20/16 18:00 55 07/20/16 17:19 99 35 07/20/16 16:07 99 35 07/20/16 16:00 35 07/20/16 16:00 98.4 53 22 139/63 99 07/20/16 16:00 55 07/20/16 15:27 98 35 07/21/16 07/21/16 07/21/16 07:00 15:00 23:00 Intake Total 524 ml Output Total 760 ml Balance -236 ml Physical Exam Neuro- intubated, does not follow commands but opens eyes. Intubated simv/ps CV- hemodynamically stable. ab soft and mildy distended. 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 Neuro-sedation held for neurocheck. moves right arm and opens eyes. CV- HDS, no pressor with pedal signals pulm-Continued weaning of ventilator, has been on PS for 4 hours on FIO2 of 35% with sats at 99 percent. minimal secretions. ab-cholecystostomy tube in place, Minimal amounts (less than 20cc) Q8 hrs. FEN/- continue diuresis and replace lytes (creatinine down to 4.69). Making continued improvements in pulmonary and renal systems. Jamaal Strauss DO, FACS [employer] Specialist of Vascular Surgery YUE/Jamaal Payne DO Jul 21, 2016 14:11
[2016-07-21] MEDS: hydrALAZINE HCL 20 MG/ML VIAL IV PRN (17:14)
[2016-07-21] MEDS: SODIUM CHLOR 0.9% 1000 ML INJ 1,000 ML IV SCH (19:15)
[2016-07-21] MEDS: MELATONIN 5 MG TAB PO SCH (20:19)
[2016-07-22] VITALS (18 sets, daily range): BP systolic 111–149; BP diastolic 56–67; PULSE 55–88; RESP 19–26; TEMP 98.5–99.9; O2SAT 95–100
[2016-07-22] MEDS: CHLORHEXIDINE GLUCONATE 2 % 1 PACK (2 CLOTHS) TOP SCH (04:00)
[2016-07-22 04:04] LABS: AUTOMATED NEUTROPHIL # 12.3 TH/MM3 (1.8-7.7); BASOPHIL # 0.2 TH/MM3 (0-0.2); BASOPHIL % 1.3 % (0.0-2.0); EOSINOPHIL # 0.5 TH/MM3 (0-0.4); EOSINOPHIL % 3.5 % (0.0-4.0); HEMATOCRIT 26.8 % (39.0-51.0); HEMO FLAGS DIFF FINAL; LYMPH % 4.8 % (9.0-44.0); LYMPHOCYTE # 0.7 TH/MM3 (1.0-4.8); MEAN CELL VOLUME 94.9 FL (80.0-100.0); MEAN CORPUSCULAR HEMOGLOBIN 31.7 PG (27.0-34.0); MEAN CORPUSCULAR HGB CONC 33.4 % (32.0-36.0); NEUT % 80.4 % (16.0-70.0); PLATELET COUNT 360 TH/MM3 (150-450); RED BLOOD COUNT 2.82 MIL/MM3 (4.50-5.90); WHITE BLOOD COUNT 15.3 TH/MM3 (4.0-11.0)
[2016-07-22] MEDS: DOBUTamine 250 MG/D5W 250 ML PREMIX DRIP IV SCH ×2 (04:18→21:20)
[2016-07-22] MEDS: INSULIN NovoLIN REGULAR SUPPLEMENTAL SCALE SQ SCH ×4 (05:56→17:58)
[2016-07-22] MEDS: METOCLOPRAMIDE HCL 10 MG/2 ML VIAL IV PUSH SCH ×3 (05:59→20:33)
[2016-07-22] MEDS: BUMETANIDE INJ 1 MG/4 ML VIAL IV PUSH SCH ×3 (05:59→20:34)
[2016-07-22] MEDS: PIPERACIL-TAZO 2.25 GM PREMIX 50 ML IV SCH ×2 (05:59→17:58)
[2016-07-22] MEDS: ARTIFICIAL TEARS OPTH SOLN 15 ML BTL EACH EYE SCH ×3 (06:00→22:00)
[2016-07-22] MEDS: SODIUM CHLORIDE 0.9% FLUSH 10 ML FLUSH IVF SCH (07:20)
--- NOTE | 2016-07-22 08:55 | HHI.CCPN ---
Subjective Remarks/Hospital Course Hospital Course: This is a 60-year-old male who is transferred emergently from outside hospital with per report and acute type B dissection. Apparently the patient told his family member today that he had searing back pain and was taken to the emergency department. A CT of the chest at that time showed a type B dissection. The patient was intubated the outside facility and transferred to [facility] for emergent evaluation management. Unfortunately, the patient is unable to provide any additional history at this time. I was at bedside and the patient arrived to the surgical intensive care unit. Dr. Long and I both evaluated the patient and when he arrived he was in a junctional bradycardia with heart rate in the 40s. He had obvious ST depressions in lead II on telemetry. Our initial concern was that we have extended the dissection into the type A dissection. We also did not have any CT of the abdomen and pelvis. On her physical exam, the patient had a cold left foot without pulses. I emergently placed a right radial arterial line, please see separate procedure note for details. We then went emergently to the CT scanner for repeat CT aortogram of the chest abdomen and pelvis to investigate the extent to which the dissection has extended. The CT aortogram demonstrated that this was still a type B dissection with the celiac artery being significantly compressed and possibly comprising flow from the dissection flap. The right kidney appears to be perfused off the false lumen and not the true lumen, and there is no contrast going down the left femoral artery. Patient was then brought back to the intensive care unit. His blood pressure is controlled on nicardipine infusion for goal systolic blood pressure less than 110. A 12-lead EKG at that time was done which demonstrated significant ST depressions in the inferior leads as well as the far lateral leads consistent with subendocardial ischemia. At the request of Dr. Long in anticipation of going emergently to the operative theater, I placed a lumbar drain for spinal protection, please see separate procedure note for details. At that point the patient was taken emergently to the operating room. Critical care medicine is been consulted to evaluate and manage the patient's type B dissection, hemodynamic's, acute hypoxic respiratory failure. 07/05: taken to OR for TEVAR overnight. lactate cleared overnight. uop adequate. Cr elevated to 1.8 this AM. He is on Coreg 50 mg by mouth 07/06: oliguric overnight. Cr rising. however, lactate cleared. other markers of end-organ perfusion better. likely ATN from time of dissection. awake following commands. moving bilateral lower extremities. clear CSF in lumbar drain. on intermittent norepinephrine to maintain spinal perfusion. 07/07: extubated yesterday, followed commands, good pulmonary mechanics. However , after extubation, became acutely delirious- probable combination of etoh withdraw and icu delirium, some pain. mental status waxed and waned throughout the day and ultimately reintubated overnight for worsening waning mental status and hypoxia. post-extubation it has been documented that he continues to move his bilateral lower extremities to painful stimuli and spontaneously. does not follow commands this morning. troponins downtrending. cardiology evaluated the patient yesterday, formal note pending, but per my conversation, plan was for ongoing conservative management as we are doing, and plan for nuc med stress test when stable. 07/08: still moving bilateral LEs spontaneously and w/d to pain. remains intubated with persistent agitation. hypoxia improving. platelets continue to fall, likely a combination of consumption, BUBBA, liver disease. will give unit of platelets prior to d/c lumbar drain. 07/09: Troponin spill resolving without evidence of ongoing injury. Major obstacle is agitation related to ETOH withdrawal followed by necessary sedation. Continue to work toward vent weaning. 07/10: Afebrile. Not following commands. Continues to be agitated for reasons above. Tolerating tube feeding at goal rate. Creatinine hopefully has plateaued. 07/11: CURRENT TEMPERATURE 100.2. MRI brain yesterday revealed left cellular restricted diffusion area likely acute infarct with small punctate areas within the coronal radiata possibly embolic event. Patient is arousable and will move all 4 extremities but not following commands. Left foot remains cool. Tolerating tube feeding. No bowel movement times 4 days. 07/12: Tmax 99.7. Currently 99. Noted right vertebral/distal left MCA/mid right VACUUM DRIER TENDER stenosis on imaging yesterday. Central line exchange from right to left side due to bleeding. No bowel movement for tolerating tube feedings with very low residuals. Still wean sedation. 07/13: Currently afebrile. Patient with soap side enema yesterday with's positive BM 3 overnight.. Go containment device currently in place. Currently hypertensive/when necessary labetalol and clonidine will be added. Noted liberalize SCI around 120 systolic blood pressure. Arousable on the ventilator and moves all 4 extremities spontaneously but not following commands. 07/14: Tmax 99.3. No significant bowel movement overnight. Currently hypotensive. Noted SCI around 120 systolic blood pressure recommended by vascular surgery. Arousable on ventilator on sedation vacation moves all 4 extremity spontaneously but not to commands. Subjective: 07/15: Afebrile. -2775 cc stool past 24 hours. Currently hypertensive. Bradycardic. Requiring antihypertensives. Plan for percutaneous cholecystostomy tube today. 07/16: Remains afebrile. CXR clearing. Renal injury without change, spontaneous urine acceptable. 07/17: No material change. Tolerates CPAP. 07/18: Family is talking with palliative Care service. 07/19: Will try CPAP with decreasing pressure support. DNR status clouds issue for extubation. 07/20: Failed SBT yesterday, could not tolerate lower pressure support. 07/21: Tolerates 5/5 SBT for several hours. Unresponsive, no eye opening today. No improvement in motor function. Extensive discussion with his brother Luis yesterday. Family is pretty consolidated in their wish to withdraw artificial support. Hopefully we can discuss options with all principals Friday. 07/22: Nodes head accurately to questions today. Moves 4 limbs to command, left is minimal. Objective Vital Signs Date Time Temp Pulse Resp B/P Pulse Ox O2 Delivery O2 Flow Rate FiO2 07/22/16 08:00 98.5 57 20 149/65 100 07/22/16 08:00 35 07/22/16 07:00 Mechanical Ventilator Intake and Output 07/21/16 07/21/16 07/22/16 08:00 16:00 00:00 Intake Total 524 ml 668 ml 562 ml Output Total 760 ml 855 ml 655 ml Balance -236 ml -187 ml -93 ml Result Diagram: 07/22/16 0322 07/21/16 0318 Imaging Last Impressions Chest X-Ray 07/15/16599 Signed Impressions: Service Date/Time: Friday, July 15, 2016 04:38 - CONCLUSION: Some worsening of the bilateral pulmonary infiltrates. Joe Appiah Jr., MD Abdomen X-Ray 07/15/16599 Signed Impressions: Service Date/Time: Friday, July 15, 2016 04:41 - CONCLUSION: No dilated bowel to suggest an obstruction. Joe Appiah Jr., MD Gall Bladder Ultrasound 07/14/16 0000 Signed Impressions: Service Date/Time: Thursday, July 14, 2016 11:36 - CONCLUSION: Abnormal gallbladder as described above. Cholecystitis would be consideration. The patient is only minimally tender around the gallbladder. Donis Hernandez MD FACR Abdomen/Pelvis CT 07/13/16 0000 Signed Impressions: Service Date/Time: Wednesday, July 13, 2016 17:29 - CONCLUSION: 1. Abnormal appearance of the gallbladder with wall thickening and possible pericholecystic fluid. No calcified stones. Recommend hepatobiliary tract scan to evaluate for acalculus cholecystitis. 2. Bilateral lower lung consolidation and bilateral pleural effusions. 3. Moderate amount of stool in the left colon. 4. Bilateral nonobstructing renal stones. Joe De Leon MD Neck Magnetic Resonance Angiography 07/11/16 0000 Signed Impressions: Service Date/Time: June 14:29 - CONCLUSION: 1. No evidence of carotid stenosis. 2. Short segment high-grade stenosis involving the mid right vertebral artery greater than 80 with a patent left vertebral artery Abhijeet Salinas MD Head Magnetic Resonance Angiography 07/11/16 0000 Signed Impressions: Service Date/Time: June 14:29 - CONCLUSION: 1. Evidence of atherosclerotic disease with focal distal left MCA branch stenosis and focal mid right VACUUM DRIER TENDER stenosis. 2. No proximal high grade stenosis or aneurysm. Bladimir Gasca MD Brain MRI 07/10/16 0000 Signed Impressions: Service Date/Time: Sunday, July 10, 2016 15:03 - CONCLUSION: 1. Small punctate infarcts involving the left cerebellar hemisphere and deep white matter bilaterally in this patient with a background of amyloid angiopathy. No acute hemorrhage is seen. Abhijeet Salinas MD Renal Ultrasound 07/08/16 0000 Signed Impressions: Service Date/Time: Friday, July 08, 2016 17:16 - CONCLUSION: 1. Resistive indices could not be obtained on the right side into the patient's body habitus and shadowing bowel gas. Left renal artery resistive indices are within normal limits. 2. No significant abdominal aortic aneurysm identified status post repair. 3. Probable 7 mm nonobstructing midpole right renal calculus. 4. Tiny left lower pole cyst measuring 1.5 cm. Hamlet Vinson MD Aorta CTA 07/04/16 0000 Signed Impressions: Service Date/Time: June 19:53 - CONCLUSION: 1. Extensive aortic dissection extending from the proximal transverse aorta just distal to the origin of the left subclavian artery. Dissection extends distally through both superficial femoral arteries. 2. Occlusion of the right renal artery with absent perfusion of the right kidney. Dissection of the left renal artery with absent perfusion of the anterior left kidney. 3. 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 4. Occlusion of left external iliac artery and right internal iliac artery. 5. ET tube in satisfactory position. Dependent consolidation in both lungs. Probable mild liver cirrhosis. No obstruction or free fluid. Russell catheter in decompressed bladder. See above discussion. Rodriguez Jeff MD Objective Remarks GENERAL: 60-year-old male. HEENT: Normocephalic. Atraumatic. Pupils 3 mm, reactive, NECK: Supple. Orotracheally intubated. CHEST: Clear to auscultation, no wheezes rales or rhonchi. CARDIOVASCULAR: RRR. S1, S2 no S4. No m,r ABDOMEN: Non-distended, soft. No rigidity. Active bowel sounds. MUSCULOSKELETAL: Distal pulses 2+. Left foot is numb. NEUROLOGICAL: Withdraws both upper and LEs to noxious stimuli. Opens eyes, nod head to questions. Date of Insertion: Jul 11, 2016 Line: Central Venous Catheter Side: Left Location: Internal, Jugular A/P Assessment and Plan Neuro/Psych: Left cerebellar lacunar infarct Right vertebral/distal left MCA and mid right VACUUM DRIER TENDER stenosis Severe Agitated Delirium Alcohol Withdrawal - up to 15 beers daily Risk for spinal cord hypoperfusion Alcohol abuse History of polysubstance abuse including crack cocaine Lumbar drain placement - removed 07/08 Insomnia On melatonin 5 mg at night as needed for insomnia Daily thiamine 100 mg daily for EtOH use MRI brain 07/10 revealed left cerebellar cystic diffusion region with small punctate areas in the suarez radiata likely embolic. Possible amyloid. MRA head/neck revealed right vertebral 80% short segment stenosis, distal left MCA and mid right VACUUM DRIER TENDER stenosis EEG 07/10 revealed no seizure activity Delirium/Withdraw regimen: --Tizanidine 2mg po BID for pain adjuvant and to help with delirium --Seroquel 25 mg twice a day for delirium/weaning to off --Haldol 5mg iv q4h prn for breakthrough agitation. --Valium 5mg po q8hr for etoh withdraw, start slow taper over through 07/15 --Ativan 1mg iv q15min prn for withdraw symptoms --continue to avoid Precedex for now given recent junctional bradycardia, NSTEMI , and need for continued spinal cord protection with goal systolic blood pressure of 140 to 160 recommended per vascular surgery. -- Okayed with Dr. Long for aspirin 324 mg daily Respiratory: Acute hypoxic and hypercarbic respiratory failure -- PRVC 18/550/0.8/5/40 Vent bundle Bronchodilator therapy every 6 hours and albuterol every 2 hours when needed Head of bed 30 07/12 SAT/SBT approximately 3 hours.. Yesterday minimal due to multiple scans performed Wean FiO2 for goal SPO2 greater than 92% Follow-up a.m. chest x-ray showed small pleural effusions bilaterally/ essentially stable chest x-ray Noted possibly will need bilateral chest tubes if unable to successfully wean. Possible tracheostomy Cardiovascular: Postop day #17 T4 with left lower x-ray fasciotomy secondary to type B aortic dissection with renal/visceral and left lower extreme L perfusion Thoracic endovascular stent with left lower extremity fasciotomy/ compartments with [address] Long Acute type B dissection- secured Type II NSTEMI- Demand Ischemia- resolving Junction bradycardia- resolved. Lactic Acidosis- resolved. Goal SBP > 120 for spinal cord protection -- troponin downtrending. 6.81 -- elevated troponins likely combination of demand ischemia and poor renal clearance -- Cardiology: Dr. Mondragon following. plan for conservative management with myocardial perfusion scan when stable. -- 2d echo: EF 55%, no RWMA. 2-D echo 07/08 repeat EF 60-65%. Mild MR. At [facility] dilated. RENO 49 mmHg --Cardiac output currently is 3.8. SVV is 13 As needed labetalol/clonidine for systolic blood pressure greater than 160 My partner added hydralazine overnight. --Use norepinephrine to maintain systolic blood pressure greater than 120 Renal: Acute kidney injury Acute Tubular Necrosis Right and left nephrolithiasis Likely secondary to hypoperfusion of the kidney from dissection, ATN -- FENa 07/07 1.2% consistent with ATN. Urine eos negative. Urine urea ordered -- order renal ultrasound with doppler. Revealed patent renal arteries bilaterally. Tiny 7 mm right renal calculus and 1.5 cm left renal cyst. -- Strict I/Os Russell placement to be maintained --nephrology consult 07/08 appreciated. No indication for dialysis at this point Avoid nephrotoxins drugs BUN/creatinine. Stabilized FEN/GI: Colonic ileus Acute protein calorie malnutrition- mild Non-anion gap metabolic acidosis- resolved. Hyperphosphatemia Hyper-magnesium Hyponatremia History of peptic ulcer disease Hepatitis C -from IV drug use Elevated AST TF: Nepro at goal 40 cc an hour --nutrition consult. Daily BMP --Currently on PhosLo 2668 mg 3 times a day for hyperphosphatemia Protonix for GI prophylaxis. Stephie-Colace twice a day for bowel regimen. MiraLAX twice a day lactulose 4 times daily. KUB revealed 8 cm transverse colon ileus. Positive results with sepsis enema yesterday. CT abdomen/those revealed wall thickening or gallbladder. 2 right midpole no obstructing kidney stones, left circumflex continues on, to semi-bilateral pleural effusions and large amount stool left colon. Plan for percutaneous cholecystostomy tube for gallbladder. Not a surgical candidate at this time. Heme/ID: Leukocytosislikely reactive Acute Blood Loss Anemia Thrombocytopenia Daily CBC No infectious etiology suspected this time Daily coags --thrombocytopenia is likely multifactorial from liver disease, consumptive from critical illness and dissection. Blood cultures/sputum/urine ordered 07/11 no growth to date Endocrine: Hyperglycemia of critical illness -- SSI, medium scale, every 6 hours Prophylaxis: GI Prophylaxis Protonix 40 mg IV every 24 DVT Prophylaxis -- SCDs/heparin The patient may receive heparin subcutaneous every 12. Patient may additionally receive aspirin, but not Plavix. Lines: 07/13 -radial arterial line --07/04-07/11 right IJ cortis -- Left IJ CVL 07/11 present - out Overall impression: More responsive today. Renal function unchanged. Spontaneous urine acceptable. Family discussing trach vs extubation attempt; requests withdrawal. We need to sort out his reasonable chance of meaningful survival for him. He appears to be able to interact with others today. Carlos Campos MD Jul 22, 2016 08:55
[2016-07-22] MEDS: THIAMINE HCL 100 MG TAB PO SCH (09:21)
[2016-07-22] MEDS: LACTULOSE SYRUP 20 GM/30 ML CUP PO SCH ×4 (09:21→20:34)
[2016-07-22] MEDS: DOCUSATE SODIUM 50 MG/SENNA 8.6 MG TAB PO SCH ×2 (09:21→20:33)
[2016-07-22] MEDS: ASPIRIN 81 MG CHEW TAB CHEW SCH (09:21)
[2016-07-22] MEDS: POLYETHYLENE GLYCOL 17 GM PKG OG-TUBE SCH ×2 (09:21→20:34)
[2016-07-22] MEDS: PANTOPRAZOLE SODIUM 40 MG VIAL IV SCH (09:22)
[2016-07-22] MEDS: MULTIVITAMIN TAB PO SCH (09:22)
[2016-07-22] MEDS: CALCIUM ACETATE 667 MG CAP PO SCH ×3 (09:22→17:58)
[2016-07-22] MEDS: QUEtiapine FUMARATE 25 MG TAB PO SCH ×2 (09:22→20:34)
[2016-07-22] MEDS: HEPARIN SODIUM - SQ 10,000 UNITS/ML VIAL SQ SCH ×2 (09:22→20:33)
[2016-07-22] MEDS: CHLORHEXIDINE 0.12% (ORAL KIT) 15 ML CUP MT SCH ×2 (09:23→20:34)
--- NOTE | 2016-07-22 11:08 | HHI.NPPN ---
Subjective History of Present Illness This patient is a 60-year-old male apparently with a history of previous alcohol and crack usage also has a history of hepatitis C, coronary disease and hypertension as well as medical noncompliance. Patient was admitted with a type B aortic dissection. CTA thoracic aorta and abdominal aorta performed July 04, 2016 revealed occluded right renal artery as well as perfusion only to the left posterior aspect of the left kidney. Patient status post emergent TAVA, left lower extremity fasciectomy mention of previous nonperfusion to that extremity. Patient's creatinine level was within normal range from previous records prior to this admission however patient had evidence of renal sufficiency on presentation and his creatinine level has continued to rise to a level of 4.75 Date of Consultation with marginal urine output. Interval History Neurologically appears to be doing better. Spoke with RN who says he is tracking. Still intubated (Paty Rizo) Review of Systems General General Remarks Unobtainable because of clinical status. (Paty Rizo) Objective Data Data 07/21/16 07/22/16 19:00 07:00 Intake Total 668 ml 1017 ml Output Total 855 ml 1410 ml Balance -187 ml -393 ml IV Total 192 ml 238 ml Tube Feeding 356 ml 719 ml Other 120 ml 60 ml Output Urine Total 825 ml 1400 ml Drainage Total 30 ml 10 ml # Bowel Movements 1 0 Vital Signs Date Time Temp Pulse Resp B/P Pulse Ox O2 Delivery O2 Flow Rate FiO2 07/22/16 10:00 66 07/22/16 08:00 98.5 57 20 149/65 100 07/22/16 08:00 35 07/22/16 08:00 57 07/22/16 07:53 98 35 07/22/16 07:00 98 Mechanical Ventilator 35 07/22/16 06:00 67 07/22/16 04:00 98.8 55 19 127/62 99 07/22/16 04:00 58 07/22/16 04:00 40 07/22/16 03:56 97 35 07/22/16 02:00 88 07/22/16 00:00 40 07/22/16 00:00 99.0 66 26 142/67 99 07/22/16 00:00 66 07/21/16 23:57 96 35 07/21/16 22:00 66 07/21/16 20:49 98 35 4/9/17 20:00 40 07/21/16 20:00 64 07/21/16 20:00 97.8 64 22 133/60 95 07/21/16 19:00 95 Mechanical Ventilator 40 07/21/16 18:00 60 07/21/16 16:00 49 07/21/16 16:00 97.7 49 18 159/70 100 07/21/16 16:00 40 07/21/16 14:49 97 35 07/21/16 14:00 46 07/21/16 12:00 40 07/21/16 12:00 60 07/21/16 12:00 97.9 56 18 137/61 100 07/21/16 11:33 100 35 (Paty Rizo) -: 07/22/16 0322 07/21/16317 Medication Review Current Medications Medications (Trade) Dose Ordered Sig/Sascha Route Start Time Stop Time Status Last Admin (Peridex 0.12% Liq) 15 ml BID@08,20 MT 07/05/16 08:00 07/22/16 09:23 (D50w (Vial) Inj) 25 ml UNSCH PRN IV PUSH 07/04/16 22:45 (NovoLIN R SUPPLEMENTAL SCALE) 1 Q6HR SQ 07/05/16 00:00 07/19/16 17:12 (Vitamin B1) 100 mg DAILY PO 07/08/16 09:00 07/22/16 09:21 (Theragran) 1 tab DAILY PO 07/05/16 09:00 07/22/16 09:22 (NS Flush) 2 ml UNSCH PRN IV FLUSH 07/04/16 22:45 (Tylenol) 650 mg Q6H PRN PO 07/04/16 22:45 07/18/16 20:52 (Protonix Inj) 40 mg DAILY IV 07/05/16 09:00 07/22/16 09:22 (Stephie-Colace) 2 tab BID PO 07/05/16 09:00 07/22/16 09:21 Miscellaneous Information 1 Q361D XX 07/04/16 22:45 (Chlorhexidine 2% Cloth) Taper DAILY@04 TOP 07/05/16 04:00 07/01/17 03:59 07/13/16 04:00 Chlorhexidine Gluconate 3 pack 3 pack UNSCH PRN TOP 07/04/16 22:45 (Levophed-Dextrose Drip) 250 ml @ 0 mls/hr TITRATE IV 07/05/16 18:30 07/09/16 21:06 (Haldol Inj) 5 mg Q4H PRN IV 07/06/16 13:30 07/06/16 14:04 (Ativan Inj) 1 mg Q15M PRN IV PUSH 07/06/16 13:30 07/06/16 14:05 (Melatonin) 5 mg HS PO 07/06/16 21:00 07/21/16 20:19 Fentanyl Citrate 25 mcg 25 mcg Q30M PRN IV PUSH 07/06/16 13:45 07/14/16 21:59 (Diprivan 1000 Mg/100ml Inj) 100 ml @ 0 mls/hr TITRATE IV 07/06/16 22:45 07/21/16 10:52 (Phoslo) 2,668 mg TID PO 07/07/16 09:00 07/22/16 09:22 (Pill Splitter) 1 ea UNSCH PRN OTHER 07/07/16 07:30 (Zanaflex) 2 mg Q12H PO 07/10/16 02:00 07/22/16 01:32 (Miralax) 17 gm BID OG-TUBE 07/10/16 09:00 07/22/16 09:21 (Tears Naturale Opth Soln) 1 drop Q8HR EACH EYE 07/10/16 14:00 07/22/16 06:00 (Lactulose Liq) 30 ml QID PO 07/11/16 09:00 07/22/16 09:21 (NS Flush) DAILY IVF 07/12/16 09:00 07/22/16 07:20 (NS Flush) UNSCH PRN IVF 07/11/16 16:45 (Aspirin Chew) 324 mg DAILY CHEW 07/11/16 17:30 07/22/16 09:21 (Glycerin Adult Supp) 2 gm BID PRN RECTAL 07/12/16 06:45 07/12/16 09:58 (SEROquel) 25 mg BID PO 07/12/16 09:00 07/22/16 09:22 (Trandate Inj) 10 mg Q1HR PRN IV PUSH 07/13/16 10:00 07/14/16 09:05 (Catapres) 0.1 mg Q6H PRN PO 07/13/16 10:00 07/19/16 22:40 (Reglan Inj) 5 mg Q8HR IV PUSH 07/13/16 14:00 07/22/16 05:59 (Apresoline Inj) 20 mg Q6H PRN IV 07/14/16 23:15 07/21/16 17:14 (fentaNYL INJ) 50 mcg Q1H PRN IV PUSH 07/15/16 09:00 Heparin Sodium (Porcine) 5000 units 5,000 units Q12HR SQ 07/15/16 21:00 07/22/16 09:22 Piperacillin Sod/ Tazobactam Sod 50 ml @ 100 mls/hr Q12H IV 07/15/16 18:00 07/22/16 05:59 Sodium Chloride 1,000 ml @ 10 mls/hr Q24H IV 07/15/16 19:15 07/21/16 19:15 (DOBUTamine PREMIX DRIP) 250 ml @ 15.6 mls/hr Q16H2M IV 07/16/16 05:00 07/16/16 05:15 (Bumex Inj) 2 mg Q8HR IV PUSH 07/16/16 14:00 07/22/16 05:59 (Paty Rizo) Physical Exam General Appearance: No Acute Distress, Comfortable (Paty Rizo) Pulmonary Resp Exam: Clear Bilaterally, Breath Sounds Equal, No Distress (Paty Rioz) Cardiology CV Exam: Regular, Normal Sinus Rhythm (Paty Rizo) Gastrointestinal/Abdomen GI Exam: Soft, Non-Tender (Paty Rizo) Integumentary Skin Exam: Clear, Warm (Paty Rizo) Extremeties Extremities Exam: Moderate Edema (edema upper and lower extremities however is improving. 1-2+.), Dependent Edema Extremeties Remarks 2+ Hands and BLE (Paty Rizo) Assessment/Plan Discussed Condition With: Sibling Problem List: (1) Acute kidney insufficiency Plan: SCr improving slowly, however renal panel pending today Continue diuretics as ordered. Will replete K if needed. Check Mg level Uncertain family wishes about long-term care at the present as no one at bedtime. Will defer to CC and palliative medicine Medications should be adjusted for the patient's estimated GFR if clinically indicated. Avoid agents with significant potential for nephrotoxicity possible including NSAIDs for analgesia, iodine contrast agents if possible. Gadolinium is contraindicated if the GFR is below 30. (2) Hepatitis C Plan: Not playing a role as far as his acute renal failure is concerned in this setting. (3) HTN (hypertension) (4) Hyperphosphatemia Plan: Pending PO4 level. Plan (Paty Rizo) Plan The exam, history, and the medical decision-making described in the above note were completed with the assistance of the PA-C. I reviewed and agree with the findings presented. (Eufemia Walters MD) Paty Rizo Jul 22, 2016 11:08 Eufemia Walters MD Jul 23, 2016 10:18
[2016-07-22 12:06] LABS: BICARBONATE 23.3 MEQ/L (21.0-32.0); MAGNESIUM 2.7 MG/DL (1.5-2.5)
[2016-07-22 12:17] LABS: POTASSIUM 2.7 MEQ/L (3.5-5.1)
[2016-07-22] MEDS: POTASSIUM CHLOR 20 MEQ PREMIX 100 ML IV SCH ×2 (14:00→15:00)
--- NOTE | 2016-07-22 14:01 | PD.VS.PN ---
Subjective POD #: 18 Procedure(s): TEVAR, L LE fasciotomies for acute TBAD with visceral/renal/LLE malperfusion Subjective/Hospital Course Renal function improving Main issue is pulmonary and then overarching continuous churn buttermaker goal decisions Objective Neuro: alert, follows complex commands Pulmonary: weaning vent on CPAP presently Cardiac: reg rate, no issues FEN/GI: Nazia TF; perc pita in place : cr down to 4.5. Getting diuretics ID Antibiotics(date/duration): none WBC 15 ID Cultures: all NGTF Heme: Hct 28 plt 360 Vascular: + signals feet perfused Laboratory Laboratory Tests Test 07/22/16 07/22/16 03:22 11:03 White Blood Count 15.3 Red Blood Count 2.82 Hemoglobin 8.9 Hematocrit 26.8 Mean Corpuscular Volume 94.9 Mean Corpuscular Hemoglobin 31.7 Mean Corpuscular Hemoglobin 33.4 Concent Red Cell Distribution Width 15.0 Platelet Count 360 Mean Platelet Volume 7.7 Neutrophils (%) (Auto) 80.4 Lymphocytes (%) (Auto) 4.8 Monocytes (%) (Auto) 10.0 Eosinophils (%) (Auto) 3.5 Basophils (%) (Auto) 1.3 Neutrophils # (Auto) 12.3 Lymphocytes # (Auto) 0.7 Monocytes # (Auto) 1.5 Eosinophils # (Auto) 0.5 Basophils # (Auto) 0.2 CBC Comment DIFF FINAL Differential Comment Sodium Level 142 Potassium Level 2.7 Chloride Level 105 Carbon Dioxide Level 23.3 Anion Gap 14 Blood Urea Nitrogen 102 Creatinine 4.48 Estimat Glomerular Filtration 13 Rate Random Glucose 139 Calcium Level 9.2 Phosphorus Level 3.5 Magnesium Level 2.7 Assessment and Plan Assessment: (1) Dissecting aneurysm of thoracic aorta, [place]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 Will discuss with family - rapidly getting to single system organ failure, which is slowly improving Hamlet Long MD FACS roll bucker [facility] - Heart and Vascular Surgery at [facility] Hamlet Long MD Jul 22, 2016 14:01
--- NOTE | 2016-07-22 17:32 | HHI.HCPN ---
Reason for visit a. To assist with evaluation and management of symptoms including: pain, dyspnea b. To assist medical decision maker(s) with: better understanding of current medical conditions; weighing benefits/burdens of medical treatment options; making medical treatment decisions. . (Vikki Liu) Subjective/Interval History Patient seen and assessed in room 1304 s/p TEVAR and LLE fasciotomy. The patient remains orotracheally intubated. Tolerating trials for several hours today. Afebrile. Hemodynamically stable. Urine output good, remains on diuretics. Hg stable. WBC remains elevated. Slight renal function improvement. BUN: 102, creatinine 4.48, GFR 13. Hypokalemicpotassium of 2.7; abdominal potassium ordered. Cultures show no growth. No new imaging today. Patient showing slow neurological improvement. Tracking with eyes, nodding and shaking his head in response to yes/no questions. Did not follow commands on exam. Family continues to state the patient would not want ongoing aggressive care. Discussed with Dr. Long, Dr. De La Cruz and patient's nurse. Per nursing, the family is requesting to speak directly with CV surgery. Palliative care contact the patient's brother (Luis) via telephone. Patient is more alert and will likely be extubated will in the next few days - ideally the patient didn't be able to participate in medical treatment goals. Dr. Long will contact the family later today. . . (Vkiki Liu) Advance Directives Living Will: Never completed Health Care Surrogate: Never completed Durable Power of Securities Broker: Never completed (Vikki Liu) Advance Directive Specifics Date completed: Advance directives never completed. . Health Care Surrogate(s): No written designation of health care surrogacy. . Documented care wishes: No written documentation of health care goals/preferences. . (Vikki Liu) Objective Vital Signs Date Time Temp Pulse Resp B/P Pulse Ox O2 Delivery O2 Flow Rate FiO2 07/22/16 16:00 99.0 61 22 111/56 99 07/22/16 16:00 35 07/22/16 16:00 61 07/22/16 15:28 97 35 07/22/16 14:00 75 07/22/16 12:00 62 07/22/16 12:00 98.7 62 19 129/61 100 07/22/16 12:00 35 07/22/16 11:56 98 35 07/22/16 11:56 35 07/22/16 10:00 66 07/22/16 08:00 98.5 57 20 149/65 100 07/22/16 08:00 35 07/22/16 08:00 57 07/22/16 07:53 98 35 07/22/16 07:00 98 Mechanical Ventilator 35 07/22/16 06:00 67 07/22/16 04:00 98.8 55 19 127/62 99 07/22/16 04:00 58 07/22/16 04:00 40 07/22/16 03:56 97 35 07/22/16 02:00 88 07/22/16 00:00 40 07/22/16 00:00 99.0 66 26 142/67 99 07/22/16 00:00 66 07/21/16 23:57 96 35 07/21/16 22:00 66 07/21/16 20:49 98 35 07/21/16 20:00 40 07/21/16 20:00 64 07/21/16 20:00 97.8 64 22 133/60 95 07/21/16 19:00 95 Mechanical Ventilator 40 07/21/16 18:00 60 Intake & Output 07/22/16 07/22/16 07:00 19:00 Intake Total 1017 ml 1605 ml Output Total 1410 ml 800 ml Balance -393 ml 805 ml IV Total 238 ml 1128 ml Tube Feeding 719 ml 357 ml Other 60 ml 120 ml Output Urine Total 1400 ml 800 ml Drainage Total 10 ml 0 ml # Bowel Movements 0 . Physical Exam CONSTITUTIONAL/GENERAL: This is an adequately nourished patient, remains orotracheally intubated in SICU bed. No apparent distress TUBES/LINES/DRAINS: ETT, OGT, dignishield, Russell catheter, SCD 1, soft restraints 2, cholecystostomy, SKIN: Incisions on left lower extremity without S/S of infection Skin temperature appropriate. Not diaphoretic. EYES: Pupils equal and round, and reactive. Tracking, response to threat. ENT: Nose without bleeding or purulent drainage. NECK: Trachea midline. CARDIOVASCULAR: Regular rate and rhythm without murmurs, gallops, or rubs. No JVD. RESPIRATORY/CHEST: Symmetric, unlabored respirations. Lungs clear. GASTROINTESTINAL: Abdomen distended, firm. GENITOURINARY: Without palpable bladder distension. Russell catheter in place. MUSCULOSKELETAL: Edema in bilateral upper and lower extremities LYMPHATICS: Not examined. NEUROLOGICAL: Awake and alert. Tracking with eyes. Nodding and shaking head to yes no questions. PSYCHIATRIC: Unable to assess given patient's level of responsiveness. . . (Vikki Liu) Diagnostic Tests Laboratory Laboratory Tests Test 07/20/16 07/20/16 07/21/16 07/22/16 03:15 03:30 03:18 03:22 White Blood Count 16.1 TH/MM3 15.3 TH/MM3 (4.0-11.0) (4.0-11.0) Red Blood Count 2.81 MIL/MM3 2.82 MIL/MM3 (4.50-5.90) (4.50-5.90) Hemoglobin 8.8 GM/DL 8.9 GM/DL (13.0-17.0) (13.0-17.0) Hematocrit 26.5 % 26.8 % (39.0-51.0) (39.0-51.0) Mean Corpuscular Volume 94.3 FL 94.9 FL (80.0-100.0) (80.0-100.0) Mean Corpuscular Hemoglobin 31.3 PG 31.7 PG (27.0-34.0) (27.0-34.0) Mean Corpuscular Hemoglobin 33.2 % 33.4 % Concent (32.0-36.0) (32.0-36.0) Red Cell Distribution Width 14.3 % 15.0 % (11.6-17.2) (11.6-17.2) Platelet Count 369 TH/MM3 360 TH/MM3 (150-450) (150-450) Mean Platelet Volume 7.4 FL 7.7 FL (7.0-11.0) (7.0-11.0) Neutrophils (%) (Auto) 77.8 % 80.4 % (16.0-70.0) (16.0-70.0) Lymphocytes (%) (Auto) 5.9 % 4.8 % (9.0-44.0) (9.0-44.0) Monocytes (%) (Auto) 10.4 % 10.0 % (0.0-8.0) (0.0-8.0) Eosinophils (%) (Auto) 4.4 % (0.0-4.0) 3.5 % (0.0-4.0) Basophils (%) (Auto) 1.5 % (0.0-2.0) 1.3 % (0.0-2.0) Neutrophils # (Auto) 12.6 TH/MM3 12.3 TH/MM3 (1.8-7.7) (1.8-7.7) Lymphocytes # (Auto) 1.0 TH/MM3 0.7 TH/MM3 (1.0-4.8) (1.0-4.8) Monocytes # (Auto) 1.7 TH/MM3 1.5 TH/MM3 (0-0.9) (0-0.9) Eosinophils # (Auto) 0.7 TH/MM3 0.5 TH/MM3 (0-0.4) (0-0.4) Basophils # (Auto) 0.2 TH/MM3 0.2 TH/MM3 (0-0.2) (0-0.2) CBC Comment AUTO DIFF DIFF FINAL Differential Total Cells 100 Counted Neutrophils % (Manual) 67 % (16-70) Band Neutrophils % 11 % (0-6) Lymphocytes % 10 % (9-44) Monocytes % 7 % (0-8) Eosinophils % 4 % (0-4) Basophils % 1 % (0-2) Neutrophils # (Manual) 12.6 TH/MM3 (1.8-7.7) Differential Comment FINAL DIFF MANUAL Platelet Estimate NORMAL (NORMAL) Platelet Morphology Comment NORMAL (NORMAL) Red Cell Morphology Comment NORMAL (NORMAL) Sodium Level 141 MEQ/L 142 MEQ/L (136-145) (136-145) Potassium Level 3.3 MEQ/L 3.3 MEQ/L (3.5-5.1) (3.5-5.1) Chloride Level 105 MEQ/L 104 MEQ/L (98-107) (98-107) Carbon Dioxide Level 20.6 MEQ/L 23.1 MEQ/L (21.0-32.0) (21.0-32.0) Anion Gap 15 MEQ/L (5-15) 15 MEQ/L (5-15) Blood Urea Nitrogen 102 MG/DL 103 MG/DL (7-18) (7-18) Creatinine 4.90 MG/DL 4.69 MG/DL (0.60-1.30) (0.60-1.30) Estimat Glomerular Filtration 12 ML/MIN (>89) 13 ML/MIN (>89) Rate Random Glucose 125 MG/DL 118 MG/DL (74-106) (74-106) Calcium Level 8.4 MG/DL 8.8 MG/DL (8.5-10.1) (8.5-10.1) Total Bilirubin 1.7 MG/DL (0.2-1.0) Aspartate Amino Transf 55 U/L (15-37) (AST/SGOT) Alanine Aminotransferase 31 U/L (12-78) (ALT/SGPT) Alkaline Phosphatase 163 U/L (45-117) Total Protein 6.5 GM/DL (6.4-8.2) Albumin 1.7 GM/DL (3.4-5.0) Prealbumin 15 MG/DL (20-40) Test 07/22/16 11:03 Sodium Level 142 MEQ/L (136-145) Potassium Level 2.7 MEQ/L (3.5-5.1) Chloride Level 105 MEQ/L (98-107) Carbon Dioxide Level 23.3 MEQ/L (21.0-32.0) Anion Gap 14 MEQ/L (5-15) Blood Urea Nitrogen 102 MG/DL (7-18) Creatinine 4.48 MG/DL (0.60-1.30) Estimat Glomerular Filtration 13 ML/MIN (>89) Rate Random Glucose 139 MG/DL (74-106) Calcium Level 9.2 MG/DL (8.5-10.1) Phosphorus Level 3.5 MG/DL (2.5-4.9) Magnesium Level 2.7 MG/DL (1.5-2.5) . (Vikki Liu) Result Diagram: 07/22/16 0322 07/22/16 1103 Procedures 07/04/16: Right radial arterial line placement 07/04/16: Lumbar drain placement 07/04/16: Right IJ cortis placement 07/04/16: TEVAR and LLE fasciotomy. 07/06/16: Extubation 07/07/16: Reintubation 07/08/16: Platelet transfusion 07/08/16: Lumbar drain removed 07/11/16: Right IJ cortis removed 07/11/16: Left IJ CVL placement . 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 (2) Delirium (3) Respiratory failure (4) NSTEMI (non-ST elevated myocardial infarction) (5) Stroke Comment: MRI shows "small punctate infarcts involving the left cerebellar hemisphere and deep white matter bilaterally " in a background of amyloid angiopathy. . (6) Acute kidney insufficiency Comment: Probably a result of ischemic injury from dissection. . (7) HTN (hypertension) (8) Hepatitis C (9) Elevated troponin (10) Cholecystitis Comment: s/p cholecystostomy tube placement. . (11) COPD (chronic obstructive pulmonary disease) Symptom Scale: (1) Pain 0-10 Scale: Unable to quantify Comment: Possible causes of pain include postop surgical pain, circulation, edema, ETT, OG, invasive lines, immobility, bedbound status etc. (2) Dyspnea 0-10 Scale: Unable to quantify Comment: Patient remains orotracheally intubated, tolerating several hours of CPAP trials. Patient will likely be extubated verbal in the upcoming days. If or when the patient is extubated, whether intentionally or unintentionally, the patient's family is requesting that the patient NOT BE REINTUBATED. . Pertinent Non-Medical Issues Psychosocial: Patient was born in [place] and moved to [place] as young adult. Patient has a long history of polysubstance abuse which includes EtOH consumption and crack cocaine. The patient continues to drink 8-12 beers daily. The patient has never been and has no children. His mother and 2 of his siblings live locally and a third brother lives in [place]. Patient's mother states patient has been diagnosed with oppositional defiant disorder and is a history of medical noncompliance. Prior to his hospitalization, the patient was living with an elderly gentleman and they were helping each other. 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 The patient received disability approximately 1 week prior to this hospitalization. Spiritual: Rastafari nicolas Legal: Per [place] statutes, health care proxy decision making would fall to the patient's mother. Family members state while in the ED at [facility] patient identified his brother (Luis) as his medical decision maker, apparently the appropriate documentation and was not completed. Family members are in agreement and working together on patient's medical decisions. However the patient's mother and 2 other siblings (Olga and Jean Carlos) has opted out of decision making role, deferring to brother Luis. Ethical issues impacting care: No known ethical issues impacting care at this time . Important Contacts Nathalia Izquierdo, mother: [phone] Brother (Luis); [phone] [id number] (Chanda); [phone] Sister (Olga); [phone] Brother (Jean Carlos): [phone] . Prognosis Patient is a 60 year old man who was admitted with a type B aortic dissection. He is currently critically ill status post with TAVER and LLE fasciotomy. His past medical history is significant for polysubstance abuse (EtOH/crack cocaine) , HTN, CAD, COPD, hepatitis C/cirrhosis as well as medical noncompliance The patient currently remains orotracheally intubated and sedated. BUBBA - patient likely sustained severe ischemic injuries to both kidneys secondary to dissection involving renal arteries. It is certainly possible that this patient will be successfully extubated and upcoming days, eventually being stable enough to be discharged to SNF. However given the patient's past medical history, noncompliance, and this recent acute event, the patient has a strong probability into new decline and/or complications. . Code Status: No Code (patient is currently intubated. CODE STATUS changed to NO CODEDNR. If/when the patient is extubated, whether intentionally or unintentionally, the family requested the patient not be reintubated.) Plan * NO CODE/DNR * Code status changed to NO CODE/DNR. Patient was transferred from another hospital with a type B dissection. Patient's family stating the patient was a DNR at that facility. Requesting the patient's CODE STATUS be changed to NO CODE because the patient has previously verbalized he would not want cardiopulmonary resuscitation. Patient is currently intubated. If/and the patient is extubated, whether intentionally or unintentionally, the family requests that he not be reintubated. If the patient should experience cardiopulmonary arrest, they asked that he be allowed to pass peacefully and naturally at that time. All family members are in agreement that this is what the patient would want. * Decision-making: Patient's brother -- Luis is the health care proxy. Per [place] statutes, health care proxy decision making would fall to the patient's mother. However the patient's mother and 2 other siblings (Olga and Jean Carlos) has opted out of decision making role, deferring to brother Luis. * Goals: Patient's family has stated the patient would not have agreed to surgery if he had known what it would involve postoperatively. They feel that comfort focused goals are in line with what the patient would want, but are willing to give the patient a little more time. * Symptom managementpain: Possible causes of pain include postop surgical pain , circulation, edema, ETT, OG, invasive lines, immobility, bedbound status etc. PRN medications are available * Symptom managementdyspnea: Patient remains orotracheally intubated, tolerating several hours of CPAP trials. Patient will likely be extubated verbal in the upcoming days. If or when the patient is extubated, whether intentionally or unintentionally, the patient's family is requesting that the patient NOT BE REINTUBATED. * Family continues to state the patient would not want ongoing aggressive care. Discussed with Dr. Long, Dr. De La Cruz and patient's nurse. Per nursing, the family is requesting to speak directly with CV surgery. Palliative care contact the patient's brother (Luis) via telephone. Patient is more alert and will likely be extubated will in the next few days - ideally the patient didn't be able to participate in medical treatment goals. Dr. Long will contact the family later today. * Palliative care BACTERIOLOGY RESEARCH ASSISTANT met with patient's mother (Nathalia), brother (Luis), sister (Olga), and [id number] (Chanda) on 07/18/16. They report the patient has a history of substance abuse including EtOH abuse and crack cocaine use. Patient continues to use alcohol, drinking 8-12 beers daily. The patient has a history of medical noncompliance. The patient's family states he was recently hospitalized at another facility and left A as soon he has he [place] [facility] [place] They state the patient would not have wanted this if he had known what it would entail. They do not believe the patient will tolerate/participate rehabilitation if/when he is discharged. Spoke to patient's brother, Jean Carlos Izquierdo, who lives in [place] via telephone. He is in agreement with other family members. * Emergency surgery has clearly saved this patient's life acutely. He continues to face the effects of his multiple cerebellar infarcts, kidney injury , subendocardial injury, and cholecystitis all complicating his history of COPD , Hep C, and substance abuse. Family feels strongly that he will be noncompliant with rehab (consistent with his diagnosis of 'oppositional defiant disorder") and would not want dialysis. If family is correct, his prognosis is poor as his terminologist survival will require both cooperation and determination. Family is unlikely to consent to trach/PEG under the circumstances. * If cardiovascular surgery feels strongly that there can be an outcome acceptable to the patient given the above family concerns, then family will need significant encouragement from CV surgery to agree to ongoing aggressive care. Palliative care will be available to support the family if CV surgery and family opt for ongoing aggressive care. Similarly, we will be available to help with withdrawal of life support and comfort care if CV surgery and family agree to transitioning to "comfort measures only." * Palliative care will continue to follow this patient throughout his hospitalization to establish trust, assist with symptom management and clarification of medical treatment goals. . (Vikki Liu) Attestation To help prompt me to consider important information that might be impacting today's encounter and assessment, information from prior notes written by myself or my colleagues may have been "brought forward" into today's note. My signature on this note, however, is an attestation that I personally performed the exam, history, and/or decision-making noted today, and, unless otherwise indicated, the interactions with patient, family, and staff as well as the review of records all occurred today. I also attest that the listed assessment and stated plan reflect my best clinical judgment today based on the combination of historical information, prior notes, and today's exam/ interactions. When time spent is documented, it refers only to time spent today by the signer, or if indicated, combined time spent today by collaborating physician/nurse practitioner. . (Vikki Liu) Collaborating MD Comments . Chart reviewed. Cased discussed with palliative care BACTERIOLOGY RESEARCH ASSISTANT. Above BACTERIOLOGY RESEARCH ASSISTANT note reviewed and I concur. . (Obed De La Cruz MD) Vikki Liu Jul 22, 2016 17:31 Obed De La Cruz MD September 09, 2016 15:04
[2016-07-22] MEDS: SODIUM CHLOR 0.9% 1000 ML INJ 1,000 ML IV SCH (17:58)
[2016-07-22] MEDS: MELATONIN 5 MG TAB PO SCH (20:33)
[2016-07-23] VITALS (18 sets, daily range): BP systolic 137–167; BP diastolic 63–74; PULSE 57–90; RESP 19–23; TEMP 98.2–100; O2SAT 93–100
[2016-07-23] MEDS: INSULIN NovoLIN REGULAR SUPPLEMENTAL SCALE SQ SCH ×4 (00:34→18:00)
[2016-07-23] MEDS: CHLORHEXIDINE GLUCONATE 2 % 1 PACK (2 CLOTHS) TOP SCH (04:00)
[2016-07-23 04:14] LABS: MEAN CELL VOLUME 95.4 FL (80.0-100.0); MEAN CORPUSCULAR HGB CONC 34.6 % (32.0-36.0); PLATELET COUNT 385 TH/MM3 (150-450); RED BLOOD COUNT 2.62 MIL/MM3 (4.50-5.90); RED CELL DISTRIBUTION WIDTH 14.7 % (11.6-17.2); REVIEW FLAG FINAL; WHITE BLOOD COUNT 14.6 TH/MM3 (4.0-11.0)
[2016-07-23 04:40] LABS: BICARBONATE 22.4 MEQ/L (21.0-32.0)
[2016-07-23 04:43] LABS: POTASSIUM 2.8 MEQ/L (3.5-5.1)
[2016-07-23] MEDS: ARTIFICIAL TEARS OPTH SOLN 15 ML BTL EACH EYE SCH ×3 (05:40→22:00)
[2016-07-23] MEDS: PIPERACIL-TAZO 2.25 GM PREMIX 50 ML IV SCH ×2 (05:40→18:12)
[2016-07-23] MEDS: BUMETANIDE INJ 1 MG/4 ML VIAL IV PUSH SCH ×3 (05:40→21:23)
[2016-07-23] MEDS: METOCLOPRAMIDE HCL 10 MG/2 ML VIAL IV PUSH SCH ×3 (05:40→21:23)
[2016-07-23] MEDS: CHLORHEXIDINE 0.12% (ORAL KIT) 15 ML CUP MT SCH ×2 (08:26→20:00)
--- NOTE | 2016-07-23 08:29 | PD.VS.PN ---
Subjective POD #: 19 Procedure(s): TEVAR, L LE fasciotomies for acute TBAD with visceral/renal/LLE malperfusion Subjective/Hospital Course Continues slow improvement. responds to complex commands and nods appropriately. Objective Neuro: MENSAH, responds Pulmonary: weaning vent steadily Cardiac: reg rate, good BP, no issues FEN/GI: papo TF; + pita drain : creatinine continues to improve - 4.4 today; good UOP and getting diuresed ID Antibiotics(date/duration): none; WBC 15 ID Cultures: NGTD Heme: Hct 25 plt 385 Vascular: + Doppler signals B Laboratory Laboratory Tests Test 07/22/16 07/23/16 11:03 03:10 Sodium Level 142 142 Potassium Level 2.7 2.8 Chloride Level 105 105 Carbon Dioxide Level 23.3 22.4 Anion Gap 14 15 Blood Urea Nitrogen 102 106 Creatinine 4.48 4.42 Estimat Glomerular Filtration 13 14 Rate Random Glucose 139 141 Calcium Level 9.2 9.3 Phosphorus Level 3.5 4.2 Magnesium Level 2.7 White Blood Count 14.6 Red Blood Count 2.62 Hemoglobin 8.6 Hematocrit 25.0 Mean Corpuscular Volume 95.4 Mean Corpuscular Hemoglobin 33.0 Mean Corpuscular Hemoglobin 34.6 Concent Red Cell Distribution Width 14.7 Platelet Count 385 Mean Platelet Volume 7.7 Albumin 1.7 Assessment and Plan Assessment: (1) Dissecting aneurysm of thoracic aorta, [place]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 Hamlet Long MD FACS atv mechanic [facility] - Heart and Vascular Surgery at [facility] Hamlet Long MD Jul 23, 2016 08:29
[2016-07-23] MEDS: PANTOPRAZOLE SODIUM 40 MG VIAL IV SCH (08:36)
[2016-07-23] MEDS: HEPARIN SODIUM - SQ 10,000 UNITS/ML VIAL SQ SCH ×2 (08:38→21:23)
[2016-07-23] MEDS: CALCIUM ACETATE 667 MG CAP PO SCH ×3 (08:43→18:00)
[2016-07-23] MEDS: THIAMINE HCL 100 MG TAB PO SCH (08:43)
[2016-07-23] MEDS: QUEtiapine FUMARATE 25 MG TAB PO SCH ×2 (08:43→21:23)
[2016-07-23] MEDS: MULTIVITAMIN TAB PO SCH (08:43)
[2016-07-23] MEDS: SODIUM CHLORIDE 0.9% FLUSH 10 ML FLUSH IVF SCH (08:44)
[2016-07-23] MEDS: ASPIRIN 81 MG CHEW TAB CHEW SCH (08:44)
[2016-07-23] MEDS: POLYETHYLENE GLYCOL 17 GM PKG OG-TUBE SCH ×2 (08:44→21:00)
[2016-07-23] MEDS: DOCUSATE SODIUM 50 MG/SENNA 8.6 MG TAB PO SCH ×2 (08:44→21:00)
[2016-07-23] MEDS: LACTULOSE SYRUP 20 GM/30 ML CUP PO SCH ×4 (08:44→21:00)
[2016-07-23] MEDS: POTASSIUM CHLOR 20 MEQ PREMIX 100 ML IV SCH ×2 (08:55→11:48)
--- NOTE | 2016-07-23 09:12 | HHI.CCPN ---
Subjective Remarks/Hospital Course Hospital Course: This is a 60-year-old male who is transferred emergently from outside hospital with per report and acute type B dissection. Apparently the patient told his family member today that he had searing back pain and was taken to the emergency department. A CT of the chest at that time showed a type B dissection. The patient was intubated the outside facility and transferred to [place] for emergent evaluation management. Unfortunately, the patient is unable to provide any additional history at this time. I was at bedside and the patient arrived to the surgical intensive care unit. Dr. Long and I both evaluated the patient and when he arrived he was in a junctional bradycardia with heart rate in the 40s. He had obvious ST depressions in lead II on telemetry. Our initial concern was that we have extended the dissection into the type A dissection. We also did not have any CT of the abdomen and pelvis. On her physical exam, the patient had a cold left foot without pulses. I emergently placed a right radial arterial line, please see separate procedure note for details. We then went emergently to the CT scanner for repeat CT aortogram of the chest abdomen and pelvis to investigate the extent to which the dissection has extended. The CT aortogram demonstrated that this was still a type B dissection with the celiac artery being significantly compressed and possibly comprising flow from the dissection flap. The right kidney appears to be perfused off the false lumen and not the true lumen, and there is no contrast going down the left femoral artery. Patient was then brought back to the intensive care unit. His blood pressure is controlled on nicardipine infusion for goal systolic blood pressure less than 110. A 12-lead EKG at that time was done which demonstrated significant ST depressions in the inferior leads as well as the far lateral leads consistent with subendocardial ischemia. At the request of Dr. Long in anticipation of going emergently to the operative theater, I placed a lumbar drain for spinal protection, please see separate procedure note for details. At that point the patient was taken emergently to the operating room. Critical care medicine is been consulted to evaluate and manage the patient's type B dissection, hemodynamic's, acute hypoxic respiratory failure. 07/05: taken to OR for TEVAR overnight. lactate cleared overnight. uop adequate. Cr elevated to 1.8 this AM. He is on Coreg 50 mg by mouth 07/06: oliguric overnight. Cr rising. however, lactate cleared. other markers of end-organ perfusion better. likely ATN from time of dissection. awake following commands. moving bilateral lower extremities. clear CSF in lumbar drain. on intermittent norepinephrine to maintain spinal perfusion. 07/07: extubated yesterday, followed commands, good pulmonary mechanics. However , after extubation, became acutely delirious- probable combination of etoh withdraw and icu delirium, some pain. mental status waxed and waned throughout the day and ultimately reintubated overnight for worsening waning mental status and hypoxia. post-extubation it has been documented that he continues to move his bilateral lower extremities to painful stimuli and spontaneously. does not follow commands this morning. troponins downtrending. cardiology evaluated the patient yesterday, formal note pending, but per my conversation, plan was for ongoing conservative management as we are doing, and plan for nuc med stress test when stable. 07/08: still moving bilateral LEs spontaneously and w/d to pain. remains intubated with persistent agitation. hypoxia improving. platelets continue to fall, likely a combination of consumption, BUBBA, liver disease. will give unit of platelets prior to d/c lumbar drain. 07/09: Troponin spill resolving without evidence of ongoing injury. Major obstacle is agitation related to ETOH withdrawal followed by necessary sedation. Continue to work toward vent weaning. 07/10: Afebrile. Not following commands. Continues to be agitated for reasons above. Tolerating tube feeding at goal rate. Creatinine hopefully has plateaued. 07/11: CURRENT TEMPERATURE 100.2. MRI brain yesterday revealed left cellular restricted diffusion area likely acute infarct with small punctate areas within the coronal radiata possibly embolic event. Patient is arousable and will move all 4 extremities but not following commands. Left foot remains cool. Tolerating tube feeding. No bowel movement times 4 days. 07/12: Tmax 99.7. Currently 99. Noted right vertebral/distal left MCA/mid right CANAL EQUIPMENT MECHANIC stenosis on imaging yesterday. Central line exchange from right to left side due to bleeding. No bowel movement for tolerating tube feedings with very low residuals. Still wean sedation. 07/13: Currently afebrile. Patient with soap side enema yesterday with's positive BM 3 overnight.. Go containment device currently in place. Currently hypertensive/when necessary labetalol and clonidine will be added. Noted liberalize SCI around 120 systolic blood pressure. Arousable on the ventilator and moves all 4 extremities spontaneously but not following commands. 07/14: Tmax 99.3. No significant bowel movement overnight. Currently hypotensive. Noted SCI around 120 systolic blood pressure recommended by vascular surgery. Arousable on ventilator on sedation vacation moves all 4 extremity spontaneously but not to commands. Subjective: 07/15: Afebrile. -2775 cc stool past 24 hours. Currently hypertensive. Bradycardic. Requiring antihypertensives. Plan for percutaneous cholecystostomy tube today. 07/16: Remains afebrile. CXR clearing. Renal injury without change, spontaneous urine acceptable. 07/17: No material change. Tolerates CPAP. 07/18: Family is talking with palliative Care service. 07/19: Will try CPAP with decreasing pressure support. DNR status clouds issue for extubation. 07/20: Failed SBT yesterday, could not tolerate lower pressure support. 07/21: Tolerates 5/5 SBT for several hours. Unresponsive, no eye opening today. No improvement in motor function. Extensive discussion with his brother Luis yesterday. Family is pretty consolidated in their wish to withdraw artificial support. Hopefully we can discuss options with all principals Friday. 07/22: Nods head accurately to questions today. Moves 4 limbs to command, left is minimal. 07/23: Patient nods head yes to wanting re-intubation and trach if necessary. He nods "yes" to wanting us to do everything to help him live. Objective Vital Signs Date Time Temp Pulse Resp B/P Pulse Ox O2 Delivery O2 Flow Rate FiO2 07/23/16 07:53 35 07/23/16 07:52 97 07/23/16 06:00 75 07/23/16 04:00 100.0 19 151/68 07/22/16 19:00 Mechanical Ventilator Intake and Output 07/22/16 07/22/16 07/23/16 08:00 16:00 00:00 Intake Total 455 ml 1605 ml 481 ml Output Total 755 ml 800 ml 600 ml Balance -300 ml 805 ml -119 ml Result Diagram: 07/23/16 0310 07/23/16 0310 Imaging Last Impressions Chest X-Ray 07/15/16 0600 Signed Impressions: Service Date/Time: Friday, July 15, 2016 04:38 - CONCLUSION: Some worsening of the bilateral pulmonary infiltrates. Joe Appiah Jr., MD Abdomen X-Ray 07/15/16 0600 Signed Impressions: Service Date/Time: Friday, July 15, 2016 04:41 - CONCLUSION: No dilated bowel to suggest an obstruction. Joe Appiah Jr., MD Gall Bladder Ultrasound 07/14/16 0000 Signed Impressions: Service Date/Time: Thursday, July 14, 2016 11:36 - CONCLUSION: Abnormal gallbladder as described above. Cholecystitis would be consideration. The patient is only minimally tender around the gallbladder. Donis Hernandez MD FACR Abdomen/Pelvis CT 07/13/16 0000 Signed Impressions: Service Date/Time: Wednesday, July 13, 2016 17:29 - CONCLUSION: 1. Abnormal appearance of the gallbladder with wall thickening and possible pericholecystic fluid. No calcified stones. Recommend hepatobiliary tract scan to evaluate for acalculus cholecystitis. 2. Bilateral lower lung consolidation and bilateral pleural effusions. 3. Moderate amount of stool in the left colon. 4. Bilateral nonobstructing renal stones. Joe De Leon MD Neck Magnetic Resonance Angiography 07/11/16 0000 Signed Impressions: Service Date/Time: June 14:29 - CONCLUSION: 1. No evidence of carotid stenosis. 2. Short segment high-grade stenosis involving the mid right vertebral artery greater than 80 with a patent left vertebral artery Abhijeet Salinas MD Head Magnetic Resonance Angiography 07/11/16 0000 Signed Impressions: Service Date/Time: June 14:29 - CONCLUSION: 1. Evidence of atherosclerotic disease with focal distal left MCA branch stenosis and focal mid right CANAL EQUIPMENT MECHANIC stenosis. 2. No proximal high grade stenosis or aneurysm. Bladimir Gasca MD Brain MRI 07/10/16 0000 Signed Impressions: Service Date/Time: Sunday, July 10, 2016 15:03 - CONCLUSION: 1. Small punctate infarcts involving the left cerebellar hemisphere and deep white matter bilaterally in this patient with a background of amyloid angiopathy. No acute hemorrhage is seen. Abhijeet Salinas MD Renal Ultrasound 07/08/16 0000 Signed Impressions: Service Date/Time: Friday, July 08, 2016 17:16 - CONCLUSION: 1. Resistive indices could not be obtained on the right side into the patient's body habitus and shadowing bowel gas. Left renal artery resistive indices are within normal limits. 2. No significant abdominal aortic aneurysm identified status post repair. 3. Probable 7 mm nonobstructing midpole right renal calculus. 4. Tiny left lower pole cyst measuring 1.5 cm. Hamlet Vinson MD Aorta CTA 07/04/16 0000 Signed Impressions: Service Date/Time: June 19:53 - CONCLUSION: 1. Extensive aortic dissection extending from the proximal transverse aorta just distal to the origin of the left subclavian artery. Dissection extends distally through both superficial femoral arteries. 2. Occlusion of the right renal artery with absent perfusion of the right kidney. Dissection of the left renal artery with absent perfusion of the anterior left kidney. 3. 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 4. Occlusion of left external iliac artery and right internal iliac artery. 5. ET tube in satisfactory position. Dependent consolidation in both lungs. Probable mild liver cirrhosis. No obstruction or free fluid. Russell catheter in decompressed bladder. See above discussion. Rodriguez Jeff MD Objective Remarks GENERAL: 60-year-old male. HEENT: Normocephalic. Atraumatic. Pupils 3 mm, reactive, NECK: Supple. Orotracheally intubated. CHEST: Clear to auscultation, no wheezes rales or rhonchi. CARDIOVASCULAR: RRR. S1, S2 no S4. No m,r. No JVD ABDOMEN: Non-distended, soft. No rigidity. Active bowel sounds. MUSCULOSKELETAL: Distal pulses 2+. Left foot is numb. NEUROLOGICAL: Withdraws both upper and LEs to noxious stimuli. Opens eyes, nods head to questions, reproducible. Date of Insertion: Jul 11, 2016 Line: Central Venous Catheter Side: Left Location: Internal, Jugular A/P Assessment and Plan Neuro/Psych: Left cerebellar lacunar infarct Right vertebral/distal left MCA and mid right CANAL EQUIPMENT MECHANIC stenosis Severe Agitated Delirium Alcohol Withdrawal - up to 15 beers daily Risk for spinal cord hypoperfusion Alcohol abuse History of polysubstance abuse including crack cocaine Lumbar drain placement - removed 07/08 Insomnia On melatonin 5 mg at night as needed for insomnia Daily thiamine 100 mg daily for EtOH use MRI brain 07/10 revealed left cerebellar cystic diffusion region with small punctate areas in the suarez radiata likely embolic. Possible amyloid. MRA head/neck revealed right vertebral 80% short segment stenosis, distal left MCA and mid right CANAL EQUIPMENT MECHANIC stenosis EEG 07/10 revealed no seizure activity Delirium/Withdraw regimen: --Tizanidine 2mg po BID for pain adjuvant and to help with delirium --Seroquel 25 mg twice a day for delirium/weaning to off --Haldol 5mg iv q4h prn for breakthrough agitation. --Valium 5mg po q8hr for etoh withdraw, start slow taper over through 07/15 --Ativan 1mg iv q15min prn for withdraw symptoms --continue to avoid Precedex for now given recent junctional bradycardia, NSTEMI , and need for continued spinal cord protection with goal systolic blood pressure of 140 to 160 recommended per vascular surgery. -- Okayed with Dr. Long for aspirin 324 mg daily Respiratory: Acute hypoxic and hypercarbic respiratory failure -- PRVC 18/550/0.8/5/40 Vent bundle Bronchodilator therapy every 6 hours and albuterol every 2 hours when needed Head of bed 30 07/12 SAT/SBT approximately 3 hours.. Yesterday minimal due to multiple scans performed Wean FiO2 for goal SPO2 greater than 92% Follow-up a.m. chest x-ray showed small pleural effusions bilaterally/ essentially stable chest x-ray Noted possibly will need bilateral chest tubes if unable to successfully wean. Patient consents to tracheostomy if he fails extubation. Cardiovascular: Postop day #18 T4 with left lower x-ray fasciotomy secondary to type B aortic dissection with renal/visceral and left lower extreme L perfusion Thoracic endovascular stent with left lower extremity fasciotomy/ compartments with [address] Long Acute type B dissection- secured Type II NSTEMI- Demand Ischemia- resolving Junction bradycardia- resolved. Lactic Acidosis- resolved. Goal SBP > 120 for spinal cord protection -- troponin downtrending. 6.81 -- elevated troponins likely combination of demand ischemia and poor renal clearance -- Cardiology: Dr. Mondragon following. plan for conservative management with myocardial perfusion scan when stable. -- 2d echo: EF 55%, no RWMA. 2-D echo 07/08 repeat EF 60-65%. Mild MR. At [facility] dilated. RENO 49 mmHg --Cardiac output currently is 3.8. SVV is 13 As needed labetalol/clonidine for systolic blood pressure greater than 160 My partner added hydralazine overnight. --Use norepinephrine to maintain systolic blood pressure greater than 120 Renal: Acute kidney injury Acute Tubular Necrosis Right and left nephrolithiasis Likely secondary to hypoperfusion of the kidney from dissection, ATN -- FENa 07/07 1.2% consistent with ATN. Urine eos negative. Urine urea ordered -- order renal ultrasound with doppler. Revealed patent renal arteries bilaterally. Tiny 7 mm right renal calculus and 1.5 cm left renal cyst. -- Strict I/Os Russell placement to be maintained --nephrology consult 07/08 appreciated. No indication for dialysis at this point Avoid nephrotoxins drugs BUN/creatinine. Stabilized FEN/GI: Colonic ileus Acute protein calorie malnutrition- mild Non-anion gap metabolic acidosis- resolved. Hyperphosphatemia Hyper-magnesium Hyponatremia History of peptic ulcer disease Hepatitis C -from IV drug use Elevated AST TF: Nepro at goal 40 cc an hour --nutrition consult. Daily BMP --Currently on PhosLo 2668 mg 3 times a day for hyperphosphatemia Protonix for GI prophylaxis. Stephie-Colace twice a day for bowel regimen. MiraLAX twice a day lactulose 4 times daily. KUB revealed 8 cm transverse colon ileus. Positive results with sepsis enema yesterday. CT abdomen/those revealed wall thickening or gallbladder. 2 right midpole no obstructing kidney stones, left circumflex continues on, to semi-bilateral pleural effusions and large amount stool left colon. Plan for percutaneous cholecystostomy tube for gallbladder. Not a surgical candidate at this time. Heme/ID: Leukocytosislikely reactive Acute Blood Loss Anemia Thrombocytopenia Daily CBC No infectious etiology suspected this time Daily coags --thrombocytopenia is likely multifactorial from liver disease, consumptive from critical illness and dissection. Blood cultures/sputum/urine ordered 07/11 no growth to date Endocrine: Hyperglycemia of critical illness -- SSI, medium scale, every 6 hours Prophylaxis: GI Prophylaxis Protonix 40 mg IV every 24 DVT Prophylaxis -- SCDs/heparin The patient may receive heparin subcutaneous every 12. Patient may additionally receive aspirin, but not Plavix. Lines: 07/13 -radial arterial line --07/04-07/11 right IJ cortis -- Left IJ CVL 07/11 present - out Overall impression: More responsive today. Renal function unchanged. Spontaneous urine acceptable. Patient's intentions are clearly for full code. He reproducibly nods his head "yes" to tracheostomy if he fails extubation. Carlos Campos MD Jul 23, 2016 09:12
--- NOTE | 2016-07-23 11:30 | HHI.NPPN ---
Subjective History of Present Illness This patient is a 60-year-old male apparently with a history of previous alcohol and crack usage also has a history of hepatitis C, coronary disease and hypertension as well as medical noncompliance. Patient was admitted with a type B aortic dissection. CTA thoracic aorta and abdominal aorta performed July 04, 2016 revealed occluded right renal artery as well as perfusion only to the left posterior aspect of the left kidney. Patient status post emergent TAVA, left lower extremity fasciectomy mention of previous nonperfusion to that extremity. Patient's creatinine level was within normal range from previous records prior to this admission however patient had evidence of renal sufficiency on presentation and his creatinine level has continued to rise to a level of 4.75 Date of Consultation with marginal urine output. Interval History Patient is still intubated on ventilatory support. Review of Systems General General Remarks Unobtainable because of clinical status. Objective Data Data 07/22/16 07/23/16 19:00 07:00 Intake Total 1605 ml 1089 ml Output Total 800 ml 1455 ml Balance 805 ml -366 ml IV Total 1128 ml 247 ml Tube Feeding 357 ml 722 ml Other 120 ml 120 ml Output Urine Total 800 ml 1450 ml Drainage Total 0 ml 5 ml Vital Signs Date Time Temp Pulse Resp B/P Pulse Ox O2 Delivery O2 Flow Rate FiO2 07/23/16 11:07 98 35 07/23/16 08:00 35 07/23/16 08:00 64 07/23/16 07:53 35 07/23/16 07:52 97 35 07/23/16 07:00 98 Mechanical Ventilator 35 07/23/16 06:00 75 07/23/16 04:00 100.0 58 19 151/68 100 07/23/16 04:00 75 07/23/16 04:00 40 07/23/16 03:55 100 35 07/23/16 02:00 57 07/23/16 01:07 98 35 07/23/16 00:00 40 07/23/16 00:00 99.2 88 22 146/68 100 07/23/16 00:00 88 07/22/16 22:14 95 35 07/22/16 22:00 80 07/22/16 20:00 84 07/22/16 20:00 99.9 84 19 132/63 96 07/22/16 20:00 40 07/22/16 19:55 96 35 07/22/16 19:00 95 Mechanical Ventilator 35 07/22/16 18:33 40 07/22/16 18:00 73 07/22/16 16:00 99.0 61 22 111/56 99 07/22/16 16:00 35 07/22/16 16:00 61 07/22/16 15:28 97 35 07/22/16 14:00 75 07/22/16 12:00 62 07/22/16 12:00 98.7 62 19 129/61 100 07/22/16 12:00 35 07/22/16 11:56 98 35 07/22/16 11:56 35 -: 07/23/16 0310 07/23/16 0310 Medication Review Current Medications Esmolol HCl/ Sodium Chloride 250 ml @ 0 mls/hr TITRATE IV ; Start 07/04/16 at 19 :15; Stop 07/05/16 at 12:28; Status DC Nicardipine HCl/ Sodium Chloride (Cardene Inj/NS 250 ml Inj) 250 ml @ 0 mls/hr TITRATE IV Last administered on 07/05/16 08:43; Start 07/04/16 at 19:15; Stop 07/05/16 at 12:28; Status DC Labetalol HCl (Trandate Inj) 20 mg Q15M PRN IV SEE COMMENTS; Start 07/04/16 at 19:15; Stop 07/10/16 at 07:50; Status DC Hydralazine HCl (Apresoline Inj) 10 mg Q15M PRN IV SEE COMMENTS Last administered on 07/06/16 14:04; Start 07/04/16 at 19:15; Stop 07/10/16 at 07:50 ; Status DC Metoprolol Tartrate 5 mg 5 mg Q5M PRN IV PUSH SEE COMMENTS Last administered on 07/07/16 12:54; Start 07/04/16 at 19:30; Stop 07/10/16 at 07:50; Status DC Propofol 100 ml @ 0 mls/hr TITRATE IV Last administered on 07/06/16 08:32; Start 07/04/16 at 19:30; Stop 07/06/16 at 13:23; Status DC Fentanyl Citrate (fentaNYL DRIP) 250 ml @ 0 mls/hr TITRATE IV Last administered on 07/06/16 07:01; Start 07/04/16 at 19:30; Stop 07/06/16 at 13:23 ; Status DC Epinephrine HCl (EPINEPHrine (1:10,000) INJ) 1 mg STK-MED ONCE .ROUTE ; Start at 19:34; Stop 07/04/16 at 19:35; Status DC Atropine Sulfate (Atropine Inj) 1 mg STK-MED ONCE .ROUTE ; Start 07/04/16 at 19: 34; Stop 07/04/16 at 19:35; Status DC Lidocaine HCl (Xylocaine 2% Inj) 100 mg STK-MED ONCE .ROUTE ; Start 07/04/16 at 19:34; Stop 07/04/16 at 19:35; Status DC Iohexol (Omnipaque 350 Inj) 100 ml STK-MED ONCE IV Last administered on 19:58; Start 07/04/16 at 19:58; Stop 07/04/16 at 19:59; Status DC Bupivacaine HCl/ Epinephrine Bitart (Sensorcaine-Epinephrine Pf 0.5% Inj) 30 ml STK-MED ONCE .ROUTE ; Start 07/04/16 at 20:21; Stop 07/04/16 at 20:22; Status DC Thrombin (Thrombin Top Soln) 10,000 units STK-MED ONCE .ROUTE ; Start 07/04/16 at 20:21; Stop 07/04/16 at 20:22; Status DC Gelatin (Gelfoam 100 Top) 1 foam STK-MED ONCE .ROUTE ; Start 07/04/16 at 20:21; Stop 07/04/16 at 20:22; Status DC Cefazolin Sodium (Ancef Inj) 2,000 mg STK-MED ONCE .ROUTE Last administered on 07/04/16 22:03; Start 07/04/16 at 20:22; Stop 07/04/16 at 20:23; Status DC Heparin Sodium (Porcine) (Heparin Inj) 60,000 units STK-MED ONCE .ROUTE ; Start 07/04/16 at 20:22; Stop 07/04/16 at 20:23; Status DC Protamine Sulfate (Protamine Sulfate Inj) 100 mg STK-MED ONCE .ROUTE ; Start at 20:22; Stop 07/04/16 at 20:23; Status DC Heparin Sodium (Porcine) 28556 units 20,000 units STK-MED ONCE .ROUTE Last administered on 07/04/16t 22:04; Start 07/04/16 at 20:38; Stop 07/04/16 at 20:39 ; Status DC Methylprednisolone Sodium Succinate/ Sodium Chloride (SoluMEDROL INJ/ NS 250 ml Inj) 290 ml @ 580 mls/hr ONCE ONCE IV ; Start 07/04/16 at 21:30; Stop at 21:59; Status DC Magnesium Oxide 800 mg 800 mg UNSCH PRN PO For Magnesium 1.2 - 1.6 mg/dL; Start 07/04/16 at 22:45; Stop 07/06/16 at 09:16; Status DC Magnesium Sulfate 4 gm/Sodium Chloride 100 ml @ 50 mls/hr UNSCH PRN IV For Magnesium 0.9 - 1.1 mg/dL; Start 07/04/16 at 22:45; Stop 07/06/16 at 09:15; Status DC Magnesium Sulfate 2 gm/Sodium Chloride 100 ml @ 50 mls/hr UNSCH PRN IV For Magnesium 1.2 - 1.6 mg/dL; Start 07/04/16 at 22:45; Stop 07/06/16 at 09:16; Status DC Potassium Chloride 100 ml @ 50 mls/hr Q2H PRN IV For Potassium 2.8 - 3.2 mEq/L ; Start 07/04/16 at 22:45; Stop 07/06/16 at 09:16; Status DC Potassium Chloride 100 ml @ 50 mls/hr Q2H PRN IV For Potassium 3.3 - 3.5 mEq/L ; Start 07/04/16 at 22:45; Stop 07/06/16 at 09:16; Status DC Potassium Chloride 100 ml @ 50 mls/hr Q2H PRN IV For Potassium 2.8 - 3.2 mEq/L ; Start 07/04/16 at 22:45; Stop 07/06/16 at 09:16; Status DC Potassium Chloride (KCl 40 Meq Premix Inj) 100 ml @ 25 mls/hr UNSCH PRN IV For Potassium 3.3 - 3.5 mEq/L Last administered on 07/05/16t 08:43; Start at 22:45; Stop 07/06/16 at 09:16; Status DC Potassium Phosphate (K-Phos) 2,000 mg Q4H PRN PO For Phosphorus < 2.5 mg/dL; Start 07/04/16 at 22:45; Stop 07/06/16 at 09:16; Status DC Potassium Phosphate 2000 mg 2,000 mg UNSCH PRN PO/TUBE SEE LABEL COMMENTS; Start 07/04/16 at 22:45; Stop 07/06/16 at 09:16; Status DC Potassium Phosphate 30 mmol/ Sodium Chloride 260 ml @ 42 mls/hr UNSCH PRN IV SEE LABEL COMMENTS; Start 07/04/16 at 22:45; Stop 07/06/16 at 09:16; Status DC Sodium Phosphate/ Sodium Chloride (Sodium Phosphate Inj/NS 250 ml Inj) 250 ml @ 42 mls/hr UNSCH PRN IV For Phosphorus < 2.5 mg/dL; Start 07/04/16 at 22:45; Stop 07/06/16 at 09:16; Status DC Chlorhexidine Gluconate (Peridex 0.12% Liq) 15 ml BID@08,20 MT Last administered on 07/23/16 08:26; Start 07/05/16 at 08:00 Dextrose (D50w (Vial) Inj) 25 ml UNSCH PRN IV PUSH HYPOGLYCEMIA-SEE COMMENTS; Start 07/04/16 at 22:45 Insulin Human Regular 1 1 Q6HR SQ Last administered on 07/23/16 00:34; Start 07/05/16 at 00:00 Thiamine HCl/ Sodium Chloride (Thiamine Inj/NS Inj) 101 ml @ 101 mls/hr Q24H IV Last administered on 07/06/16 01:11; Start 07/05/16 at 02:00; Stop at 02:59; Status DC Thiamine HCl 100 mg 100 mg DAILY PO Last administered on 07/23/16 08:43; Start 07/08/16 at 09:00 Multivitamins/ Thiamine HCl/ Folic Acid/Sodium Chloride (Mvi-12 Inj/ Thiamine Inj/ Folvite Inj/1/2 NS 500 ml Inj) 511.2 ml @ 125 mls/hr ONCE ONCE IV Last administered on 07/05/16 02:05; Start 07/04/16 at 23:00; Stop 07/05/16 at 03:05 ; Status DC Multivitamins (Theragran) 1 tab DAILY PO Last administered on 07/23/16 08:43; Start 07/05/16 at 09:00 Albuterol/ Ipratropium (Duoneb Neb) 1 ampule Q6HR NEB INH Last administered on 07/18/16 02:52; Start 07/05/16 at 04:00; Stop 07/18/16 at 08:19; Status DC Albuterol/ Ipratropium 1 ampule 1 ampule Q2HR NEB PRN INH WHEEZING; Start 07/04 at 22:45; Stop 07/10/16 at 08:19; Status DC Sodium Chloride (NS 1000 ml Inj) 1,000 ml @ 100 mls/hr Q10H IV ; Start at 23:00; Stop 07/05/16 at 00:42; Status DC Sodium Chloride (NS Flush) 2 ml UNSCH PRN IV FLUSH FLUSH AFTER USING IV ACCESS ; Start 07/04/16 at 22:45 Sodium Chloride (NS Flush) 2 ml BID IV FLUSH Last administered on 07/12/16 09: 59; Start 07/05/16 at 09:00; Stop 07/13/16 at 13:33; Status DC Acetaminophen (Tylenol) 650 mg Q6H PRN PO PAIN 1-10 AND/OR FEVER >101F Last administered on 07/18/16 20:52; Start 07/04/16 at 22:45 Pantoprazole Sodium (Protonix Inj) 40 mg DAILY IV Last administered on 08:36; Start 07/05/16 at 09:00 Ondansetron HCl (Zofran Inj) 4 mg Q6H PRN IV NAUSEA OR VOMITING; Start at 22:45; Stop 07/13/16 at 13:33; Status DC Senna/Docusate Sodium (Stephie-Colace) 2 tab BID PO Last administered on 20:33; Start 07/05/16 at 09:00 Miscellaneous Information 1 [id number] ; Start 07/04/16 at 22:45 Chlorhexidine Gluconate (Chlorhexidine 2% Cloth) Taper DAILY@04 TOP Last administered on 07/13/16 04:00; Start 07/05/16 at 04:00; Stop 07/01/17 at 03:59 Chlorhexidine Gluconate 3 pack 3 pack UNSCH PRN TOP HYGIENIC CARE; Start at 22:45 Naloxone HCl/ Dextrose (Narcan Inj/D5W Inj) 250 ml @ 0 mls/hr TITRATE IV Last administered on 07/05/16 03:57; Start 07/04/16 at 23:00; Stop 07/08/16 at 06:18 ; Status DC Albumin Human (Albumin 25% Inj) 25 gm UNSCH X1 PRN IV see below; Start at 23:00; Stop 07/05/16 at 23:00; Status DC Iohexol (Omnipaque 300 Inj) 150 ml STK-MED ONCE OTHER Last administered on 07/04 22:04; Start 07/04/16 at 22:04; Stop 07/04/16 at 23:40; Status DC Fentanyl Citrate (fentaNYL INJ) 250 mcg STK-MED ONCE .ROUTE ; Start 07/05/16 at 00:10; Stop 07/05/16 at 00:11; Status DC Sodium Bicarbonate 50 meq 50 meq STK-MED ONCE .ROUTE ; Start 07/05/16 at 00:36; Stop 07/05/16 at 00:37; Status DC Sodium Bicarbonate/ Dextrose (Sodium Bicarbonate 8.4% Inj/D5W 1000 ml Inj) 1, 150 ml @ 100 mls/hr [id number] IV Last administered on 07/05/16 23:28; Start at 00:45; Stop 07/06/16 at 09:21; Status DC Albumin Human (Albumin 5% Inj) 25 gm ONCE ONCE IV Last administered on 02:44; Start 07/05/16 at 00:45; Stop 07/05/16 at 00:46; Status DC Sodium Bicarbonate (Sodium Bicarbonate 8.4% Inj) 100 meq ONCE ONCE IV PUSH Last administered on 07/05/16 01:15; Start 07/05/16 at 01:15; Stop 07/05/16 at 01:16; Status DC Heparin Sodium (Porcine) 5000 units 5,000 units Q12HR SQ Last administered on 19:18; Start 07/05/16 at 21:00; Stop 07/08/16 at 20:11; Status DC Norepinephrine Bitartrate 250 ml @ As Directed STK-MED ONCE IV ; Start at 17:58; Stop 07/05/16 at 17:59; Status DC Norepinephrine Bitartrate (Levophed-Dextrose Drip) 250 ml @ 0 mls/hr TITRATE IV Last administered on 07/09/16 21:06; Start 07/05/16 at 18:30 Midazolam HCl 2 mg 2 mg Q1H PRN IV PUSH agitation Last administered on 12:07; Start 07/05/16 at 22:30; Stop 07/06/16 at 13:24; Status DC Sodium Chloride 1,000 ml @ 999 mls/hr Q1H1M ONCE IV Last administered on 01:00; Start 07/06/16 at 01:00; Stop 07/06/16 at 02:00; Status DC Sodium Chloride 999 ml @ 0 mls/hr BOLUS ONCE IV Last administered on 04:00; Start 07/06/16 at 04:00; Stop 07/06/16 at 04:01; Status DC Calcium Gluconate/ Sodium Chloride (Calcium Gluconate Inj/NS Inj) 130 ml @ 120 mls/hr ONCE ONCE IV Last administered on 07/06/16 07:00; Start 07/06/16 at 06 :15; Stop 07/06/16 at 07:19; Status DC Haloperidol Lactate (Haldol Inj) 5 mg Q4H PRN IV agitation Last administered on 07/06/16 14:04; Start 07/06/16 at 13:30 Lorazepam (Ativan Inj) 1 mg Q15M PRN IV PUSH severe agitation/withdraw sxs Last administered on 07/06/16 14:05; Start 07/06/16 at 13:30 Melatonin (Melatonin) 5 mg HS PO Last administered on 07/22/16 20:33; Start at 21:00 Nitroglycerin (Nitrostat Sl) 0.3 mg ONCE ONCE SL Last administered on 14:00; Start 07/06/16 at 14:00; Stop 07/06/16 at 14:01; Status DC Nitroglycerin (Nitrostat Sl) 0.4 mg STK-MED ONCE SL ; Start 07/06/16 at 13:43; Stop 07/06/16 at 13:44; Status DC Fentanyl Citrate (fentaNYL INJ) 25 mcg Q30M PRN IV PUSH pain 3-10 or not taking po Last administered on 07/23/16 08:34; Start 07/06/16 at 13:45 Fentanyl Citrate (fentaNYL INJ) 100 mcg STK-MED ONCE .ROUTE ; Start 07/06/16 at 13:57; Stop 07/06/16 at 13:58; Status DC Ziprasidone 10 mg 10 mg ONCE ONCE IM Last administered on 07/06/16 15:00; Start 07/06/16 at 15:00; Stop 07/06/16 at 15:01; Status DC Sodium Chloride (NS 1000 ml Inj) 999 ml @ 0 mls/hr BOLUS ONCE IV Last administered on 07/06/16 22:03; Start 07/06/16 at 22:00; Stop 07/06/16 at 22:01 ; Status DC Etomidate 20 mg 20 mg ONCE ONCE IV PUSH Last administered on 07/06/16 22:54; Start 07/06/16 at 22:45; Stop 07/06/16 at 22:46; Status DC Propofol 100 ml @ 0 mls/hr TITRATE IV Last administered on 07/21/16 10:52; Start 07/06/16 at 22:45 Fentanyl Citrate 250 ml @ 0 mls/hr TITRATE IV Last administered on 07/13/16 10: 43; Start 07/06/16 at 22:45; Stop 07/14/16 at 06:44; Status DC Propofol (Diprivan 1000 Mg/100ml Inj) 100 ml @ As Directed STK-MED ONCE .ROUTE ; Start 07/06/16 at 22:32; Stop 07/06/16 at 22:33; Status DC Etomidate (Amidate Inj) 20 mg STK-MED ONCE .ROUTE ; Start 07/06/16 at 22:33; Stop 07/06/16 at 22:34; Status DC Quetiapine Fumarate (SEROquel) 100 mg Q8HR PO Last administered on 07/10/16 05 :40; Start 07/07/16 at 07:30; Stop 07/10/16 at 08:19; Status DC Tizanidine HCl (Zanaflex) 2 mg Q12HR PO Last administered on 07/09/16 14:00; Start 07/07/16 at 09:00; Stop 07/09/16 at 19:30; Status DC Diazepam (Valium) 5 mg Taper Q24H PO Last administered on 07/14/16 08:48; Start 07/07/16 at 07:30; Stop 07/15/16 at 07:29; Status DC Calcium Acetate (Phoslo) 2,668 mg TID PO Last administered on 07/23/16 08:43; Start 07/07/16 at 09:00 Miscellaneous 1 ea 1 ea UNSCH PRN OTHER SEE LABEL COMMENTS; Start 07/07/16 at 07:30 Sodium Chloride (NS 250 ml Inj) 250 ml @ 15 mls/hr ONCE ONCE IV Last administered on 07/08/16 07:11; Start 07/08/16 at 06:30; Stop 07/08/16 at 23:09 ; Status DC Heparin Sodium (Porcine) (Heparin Inj) 5,000 units Q8H SQ ; Start 07/08/16 at 20 :00; Status Cancel Heparin Sodium (Porcine) (Heparin Inj) 5,000 units Q8H SQ Last administered on 07/14/16 14:19; Start 07/08/16 at 20:00; Stop 07/15/16 at 09:02; Status DC Norepinephrine Bitartrate (Levophed Inj) 4 mg STK-MED ONCE IV ; Start 07/04/16 at 13:18; Stop 07/09/16 at 13:21; Status DC Vecuronium [place] (Norcuron 20 Mg Inj) 20 mg STK-MED ONCE IV ; Start 07/04/16 at 13:18; Stop 07/09/16 at 13:21; Status DC Mannitol (Mannitol Inj) 12.5 gm STK-MED ONCE IV ; Start 07/04/16 at 13:18; Stop 07/09/16 at 13:21; Status DC Ephedrine Sulfate (ePHEDrine/NS 25 MG/5 ML SYR) 25 mg STK-MED ONCE IV ; Start at 13:18; Stop 07/09/16 at 13:21; Status DC Naloxone HCl (Narcan Inj) 0.8 mg STK-MED ONCE IV ; Start 07/04/16 at 13:18; Stop 07/09/16 at 13:21; Status DC Phenylephrine HCl 1000 mcg 1,000 mcg STK-MED ONCE IV ; Start 07/04/16 at 13:18; Stop 07/09/16 at 13:21; Status DC Sodium Chloride 250 ml @ As Directed STK-MED ONCE IV ; Start 07/04/16 at 13:18 ; Stop 07/09/16 at 13:21; Status DC Sodium Chloride 500 ml @ As Directed STK-MED ONCE IV ; Start 07/04/16 at 13:18 ; Stop 07/09/16 at 13:21; Status DC Parenteral Electrolytes 1,000 ml @ As Directed STK-MED ONCE IV ; Start at 13:18; Stop 07/09/16 at 13:21; Status DC Sodium Chloride (NS Inj) 100 ml @ As Directed STK-MED ONCE IV ; Start 07/04/16 at 13:18; Stop 07/09/16 at 13:21; Status DC Tizanidine HCl (Zanaflex) 2 mg Q12H PO Last administered on 07/23/16 01:52; Start 07/10/16 at 02:00 Lactulose (Lactulose Liq) 30 ml QID PO Last administered on 07/10/16 21:00; Start 07/10/16 at 09:00; Stop 07/10/16 at 23:59; Status DC Polyethylene Glycol (Miralax) 17 gm BID OG-TUBE Last administered on 07/22/16 20:34; Start 07/10/16 at 09:00 Glycerin (Glycerin Adult Supp) 2 gm ONCE ONCE RECTAL Last administered on 07/10 08:15; Start 07/10/16 at 08:15; Stop 07/10/16 at 08:37; Status DC Glycerin (Glycerin Adult Supp) 2 gm DAILY PRN RECTAL CONSTIPATION; Start at 08:15; Stop 07/13/16 at 13:33; Status DC Quetiapine Fumarate (SEROquel) 50 mg Q8HR PO Last administered on 07/11/16 05: 09; Start 07/10/16 at 14:00; Stop 07/11/16 at 08:44; Status DC Albuterol Sulfate (Albuterol Neb) 2.5 mg Q2HR NEB PRN NEB dyspnea Last administered on 07/19/16 08:08; Start 07/10/16 at 08:30 Artificial Tears (Tears Naturale Opth Soln) 1 drop Q8HR EACH EYE Last administered on 07/23/16 05:40; Start 07/10/16 at 14:00 Lactulose (Lactulose Liq) 30 ml QID PO Last administered on 07/22/16 20:34; Start 07/11/16 at 09:00 Mineral Oil (Mineral Oil Liq) 15 ml ONCE ONCE PO Last administered on 09:13; Start 07/11/16 at 08:00; Stop 07/11/16 at 08:20; Status DC Methylnaltrexone [place] (Relistor Inj) 12 mg ONCE ONCE SQ Last administered on 07/11/16 09:13; Start 07/11/16 at 08:00; Stop 07/11/16 at 08:20; Status DC Quetiapine Fumarate (SEROquel) 50 mg BID PO Last administered on 07/11/16 20: 24; Start 07/11/16 at 21:00; Stop 07/12/16 at 06:43; Status DC Gelatin (Gelfoam 12 Mm/7 Mm Top) 1 foam STK-MED ONCE .ROUTE ; Start 07/11/16 at 11:59; Stop 07/11/16 at 12:00; Status DC Aspirin (Aspirin Supp) 300 mg DAILY RECTAL ; Start 07/11/16 at 18:00; Stop 07/11 at 18:00; Status DC Aspirin (Aspirin Chew) 81 mg DAILY CHEW ; Start 07/11/16 at 18:00; Stop at 18:00; Status DC Sodium Chloride (NS Flush) DAILY IVF Last administered on 07/23/16 08:44; Start 07/12/16 at 09:00 Sodium Chloride (NS Flush) UNSCH PRN IVF SEE PROTOCOL; Start 07/11/16 at 16:45 Aspirin (Aspirin Chew) 324 mg DAILY CHEW Last administered on 07/23/16 08:44; Start 07/11/16 at 17:30 Mineral Oil (Mineral Oil Liq) 15 ml ONCE ONCE PO Last administered on 09:58; Start 07/12/16 at 06:45; Stop 07/12/16 at 06:46; Status DC Methylnaltrexone [place] (Relistor Inj) 6 mg ONCE ONCE SQ Last administered on 07/12/16 12:34; Start 07/12/16 at 07:30; Stop 07/12/16 at 07:31; Status DC Magnesium Citrate (Citroma Liq) 300 ml ONCE ONCE PO Last administered on 10:01; Start 07/12/16 at 06:45; Stop 07/12/16 at 06:46; Status DC Glycerin (Glycerin Adult Supp) 2 gm ONCE ONCE RECTAL ; Start 07/12/16 at 06:45 ; Stop 07/12/16 at 06:46; Status DC Glycerin (Glycerin Adult Supp) 2 gm BID PRN RECTAL CONSTIPATION Last administered on 07/12/16 09:58; Start 07/12/16 at 06:45 Quetiapine Fumarate (SEROquel) 25 mg BID PO Last administered on 07/23/16 08: 43; Start 07/12/16 at 09:00 Diatrizoate Meglum/ Diatrizoate Sod 18 ml 18 ml ONCE ONCE PO ; Start 07/12/16 at 15:15; Stop 07/12/16 at 15:16; Status DC Sodium Chloride (NS 1000 ml Inj) 1,000 ml @ 100 mls/hr Q10H IV Last administered on 07/15/16 05:19; Start 07/12/16 at 17:00; Stop 07/15/16 at 19:01; Status DC Labetalol HCl (Trandate Inj) 10 mg Q1HR PRN IV PUSH SBP>160, DBP>90, HR>65 Last administered on 07/14/16 09:05; Start 07/13/16 at 10:00 Clonidine (Catapres) 0.1 mg Q6H PRN PO SBP>170, DBP>90, HR>65 Last administered on 07/19/16 22:40; Start 07/13/16 at 10:00 Metoclopramide HCl (Reglan Inj) 5 mg Q8HR IV PUSH Last administered on 05:40; Start 07/13/16 at 14:00 Methylnaltrexone [place] (Relistor Inj) 12 mg ONCE ONCE SQ Last administered on 07/13/16 15:38; Start 07/13/16 at 12:15; Stop 07/13/16 at 12:16; Status DC Diatrizoate Meglum/ Diatrizoate Sod ( Gastroview Liq) 18 ml ONCE ONCE PO Last administered on 07/13/16 14:18; Start 07/13/16 at 13:30; Stop 07/13/16 at 13: 31; Status DC Midazolam HCl (Versed Inj) 2 mg STK-MED ONCE .ROUTE ; Start 07/14/16 at 12:41; Stop 07/14/16 at 12:42; Status DC Propofol (Diprivan 200 Mg/20 ml Inj) 130 mg STK-MED ONCE IV ; Start 07/14/16 at 12:27; Stop 07/14/16 at 13:18; Status DC Polyethylene Glycol/ Electrolytes (Colyte Liq) 4,000 ml ONCE ONCE NG Last administered on 07/14/16 17:11; Start 07/14/16 at 15:30; Stop 07/14/16 at 15:31; Status DC Bumetanide (Bumex Inj) 2 mg ONCE ONCE IV PUSH Last administered on 07/14/16 16 :51; Start 07/14/16 at 15:45; Stop 07/14/16 at 15:47; Status DC Hydralazine HCl (Apresoline Inj) 20 mg Q6H PRN IV FOR SBP > 160 Last administered on 07/21/16 17:14; Start 07/14/16 at 23:15 Fentanyl Citrate (fentaNYL INJ) 50 mcg Q1H PRN IV PUSH PAIN SCALE 1 TO 10; Start 07/15/16 at 09:00 Heparin Sodium (Porcine) (Heparin Inj) 5,000 units Q12HR SQ Last administered on 07/23/16 08:38; Start 07/15/16 at 21:00 Bumetanide 2 mg 2 mg BID@,18 IV PUSH Last administered on 07/16/16 08:39; Start 07/15/16 at 18:00; Stop 07/16/16 at 12:01; Status DC Levofloxacin/ Dextrose (Levaquin 500 Mg Premix Inj) 100 ml @ As Directed STK- MED ONCE IV Last administered on 07/15/16 16:00; Start 07/15/16 at 16:22; Stop 07/15/16 at 16:23; Status DC Midazolam HCl (Versed Inj) 5 mg STK-MED ONCE .ROUTE ; Start 07/15/16 at 16:22; Stop 07/15/16 at 16:23; Status DC Fentanyl Citrate (fentaNYL INJ) 250 mcg STK-MED ONCE .ROUTE Last administered on 07/15/16 16:23; Start 07/15/16 at 16:23; Stop 07/15/16 at 16:24; Status DC Iohexol 3 ml 3 ml STK-MED ONCE .XX Last administered on 07/15/16 16:20; Start 07/15/16 at 16:43; Stop 07/15/16 at 16:44; Status DC Piperacillin Sod/ Tazobactam Sod 50 ml @ 100 mls/hr Q12H IV Last administered on 07/23/16 05:40; Start 07/15/16 at 18:00 Sodium Chloride 1,000 ml @ 10 mls/hr Q24H IV Last administered on 07/22/16 17 :58; Start 07/15/16 at 19:15 Dobutamine HCl/ Dextrose (DOBUTamine PREMIX DRIP) 250 ml @ 15.6 mls/hr Q16H2M IV Last administered on 07/16/16 05:15; Start 07/16/16 at 05:00 Bumetanide (Bumex Inj) 2 mg Q8HR IV PUSH Last administered on 07/23/16 05:40; Start 07/16/16 at 14:00 Alteplase, Recombinant (Cathflo Activase Inj) 2 mg ONCE ONCE IV FLUSH ; Start 07/19/16 at 17:00; Stop 07/19/16 at 17:01; Status DC Alteplase, Recombinant 2 mg 2 mg ONCE ONCE IV FLUSH ; Start 07/19/16 at 17:00; Stop 07/19/16 at 17:01; Status DC Potassium Chloride 100 ml @ 50 mls/hr Q2H IV Last administered on 07/22/16 15 :00; Start 07/22/16 at 13:00; Stop 07/22/16 at 16:59; Status DC Potassium Chloride (KCl 20 Meq Premix Inj) 100 ml @ 50 mls/hr Q2H IV Last administered on 07/23/16 08:55; Start 07/23/16 at 09:00; Stop 07/23/16 at 12:59 Physical Exam General Appearance: No Acute Distress, Comfortable Pulmonary Resp Exam: Clear Bilaterally, Breath Sounds Equal, No Distress Cardiology CV Exam: Regular, Normal Sinus Rhythm Gastrointestinal/Abdomen GI Exam: Soft, Non-Tender Integumentary Skin Exam: Clear, Warm Extremeties Extremities Exam: Moderate Edema (edema upper and lower extremities however is improving. One plus.), Dependent Edema Assessment/Plan Problem List: (1) Acute kidney insufficiency Plan: Creatinine is improving albeit slowly. Urine output fairly good with diuretic therapy. Supplement potassium as ordered. Uncertain family wishes about long-term care at the present as no one at bedtime. Will defer to CC and palliative medicine Medications should be adjusted for the patient's estimated GFR if clinically indicated. Avoid agents with significant potential for nephrotoxicity possible including NSAIDs for analgesia, iodine contrast agents if possible. Gadolinium is contraindicated if the GFR is below 30. (2) Hepatitis C Plan: Not playing a role as far as his acute renal failure is concerned in this setting. (3) HTN (hypertension) (4) Hyperphosphatemia Eufemia Walters MD Jul 23, 2016 11:30
[2016-07-23] MEDS: DOBUTamine 250 MG/D5W 250 ML PREMIX DRIP IV SCH (13:22)
[2016-07-23] MEDS: hydrALAZINE HCL 20 MG/ML VIAL IV PRN (13:31)
--- NOTE | 2016-07-23 15:56 | HHI.HCPN ---
Reason for visit a. To assist with evaluation and management of symptoms including: pain, dyspnea b. To assist medical decision maker(s) with: better understanding of current medical conditions; weighing benefits/burdens of medical treatment options; making medical treatment decisions. . (Vikki Liu) Subjective/Interval History Patient seen and assessed in room 1304 s/p TEVAR and LLE fasciotomy. Also present Palliative Care Madai JERNIGAN. The patient remains orotracheally intubated , tolerating CPAP trials. Patient showing progressive neurological improvement. Nodding and shaking his head in response to yes/no questions, reproducible. Following commands. Per Dr. Castillo, patient indicated aggressive goals by nodding his head "yes" to wanting everything done to help him. Patient nodded yes to wanting recent intubation and tracheostomy if necessary. Later in the day patient again indicated aggressive goals to palliative care nodding his head yes when asked about CPR. CODE STATUS has been changed to FULL CODE. Patient's family was notified by palliative care. Afebrile. Hemodynamically stable. WBC trending downward at 14.6 today. Cultures show growth today. No new imaging today. Renal functioning remains relatively the same. BUN: 106, creatinine 4.42, GFR 14. Urine output stable on diuretics. Receiving supplemental potassium as needed. Nephrology continues to follow. . Family/friend interactions Spoke to patient's brother. Luis, via telephone. Update provided on the patient's clinical condition and improved neurological status. Assessed that patient had indicated to hospital staff, on 2 different occasions this morning, and he wanted everything done to help him live. Patient's brother was surprised his brother would say that but is supportive of his brothers goals. Questions answered to the best of my ability. (Vikki Liu) Advance Directives Living Will: Never completed Health Care Surrogate: Never completed Durable Power of Car Oiler: Never completed (Vikki Liu) Advance Directive Specifics Date completed: Advance directives never completed. . Health Care Surrogate(s): No written designation of health care surrogacy. . Documented care wishes: No written documentation of health care goals/preferences. . (Vikki Liu) Objective Vital Signs Date Time Temp Pulse Resp B/P Pulse Ox O2 Delivery O2 Flow Rate FiO2 07/23/16 15:12 93 35 07/23/16 14:00 90 07/23/16 12:00 35 07/23/16 12:00 98.6 64 23 167/74 100 07/23/16 12:00 66 07/23/16 11:07 98 35 07/23/16 10:00 64 07/23/16 09:34 22 07/23/16 08:00 35 07/23/16 08:00 64 07/23/16 08:00 98.4 68 20 144/64 97 07/23/16 07:53 35 07/23/16 07:52 97 35 07/23/16 07:00 98 Mechanical Ventilator 35 07/23/16 06:00 75 07/23/16 04:00 100.0 58 19 151/68 100 07/23/16 04:00 75 07/23/16 04:00 40 07/23/16 03:55 100 35 07/23/16 02:00 57 07/23/16 01:07 98 35 07/23/16 00:00 40 07/23/16 00:00 99.2 88 22 146/68 100 07/23/16 00:00 88 07/22/16 22:14 95 35 07/22/16 22:00 80 07/22/16 20:00 84 07/22/16 20:00 99.9 84 19 132/63 96 07/22/16 20:00 40 07/22/16 19:55 96 35 07/22/16 19:00 95 Mechanical Ventilator 35 07/22/16 18:33 40 07/22/16 18:00 73 07/22/16 16:00 99.0 61 22 111/56 99 07/22/16 16:00 35 07/22/16 16:00 61 Intake & Output 07/23/16 07/23/16 07:00 19:00 Intake Total 1089 ml Output Total 1455 ml Balance -366 ml IV Total 247 ml Tube Feeding 722 ml Other 120 ml Output Urine Total 1450 ml Drainage Total 5 ml Physical Exam CONSTITUTIONAL/GENERAL: This is an adequately nourished patient, remains orotracheally intubated in SICU bed. No apparent distress TUBES/LINES/DRAINS: ETT, OGT, dignishield, Russell catheter, SCD 1, soft restraints 2, cholecystostomy, SKIN: Incisions on left lower extremity without S/S of infection Skin temperature appropriate. Not diaphoretic. EYES: Pupils equal and round, and reactive. Tracking, response to threat. ENT: Nose without bleeding or purulent drainage. NECK: Trachea midline. CARDIOVASCULAR: Regular rate and rhythm without murmurs, gallops, or rubs. No JVD. RESPIRATORY/CHEST: Symmetric, unlabored respirations. Lungs clear. GASTROINTESTINAL: Abdomen distended, firm. Active bowel sounds. GENITOURINARY: Without palpable bladder distension. Russell catheter in place. MUSCULOSKELETAL: No deformities. Trace edema and upper extremities. LYMPHATICS: Not examined. NEUROLOGICAL: Awake and alert. Tracking with eyes. Nodding and shaking head to yes no questions, reproducible. Following simple commands PSYCHIATRIC: No apparent anxiety or agitation. . . (Vikki Liu) Diagnostic Tests Laboratory Laboratory Tests Test 07/21/16 07/22/16 07/22/16 07/23/16 03:18 03:22 11:03 03:10 Sodium Level 142 MEQ/L 142 MEQ/L 142 MEQ/L (136-145) (136-145) (136-145) Potassium Level 3.3 MEQ/L 2.7 MEQ/L 2.8 MEQ/L (3.5-5.1) (3.5-5.1) (3.5-5.1) Chloride Level 104 MEQ/L 105 MEQ/L 105 MEQ/L (98-107) (98-107) (98-107) Carbon Dioxide Level 23.1 MEQ/L 23.3 MEQ/L 22.4 MEQ/L (21.0-32.0) (21.0-32.0) (21.0-32.0) Anion Gap 15 MEQ/L (5-15) 14 MEQ/L (5-15) 15 MEQ/L (5-15) Blood Urea Nitrogen 103 MG/DL 102 MG/DL 106 MG/DL (7-18) (7-18) (7-18) Creatinine 4.69 MG/DL 4.48 MG/DL 4.42 MG/DL (0.60-1.30) (0.60-1.30) (0.60-1.30) Estimat Glomerular Filtration 13 ML/MIN (>89) 13 ML/MIN (>89) 14 ML/MIN (>89) Rate Random Glucose 118 MG/DL 139 MG/DL 141 MG/DL (74-106) (74-106) (74-106) Calcium Level 8.8 MG/DL 9.2 MG/DL 9.3 MG/DL (8.5-10.1) (8.5-10.1) (8.5-10.1) White Blood Count 15.3 TH/MM3 14.6 TH/MM3 (4.0-11.0) (4.0-11.0) Red Blood Count 2.82 MIL/MM3 2.62 MIL/MM3 (4.50-5.90) (4.50-5.90) Hemoglobin 8.9 GM/DL 8.6 GM/DL (13.0-17.0) (13.0-17.0) Hematocrit 26.8 % 25.0 % (39.0-51.0) (39.0-51.0) Mean Corpuscular Volume 94.9 FL 95.4 FL (80.0-100.0) (80.0-100.0) Mean Corpuscular Hemoglobin 31.7 PG 33.0 PG (27.0-34.0) (27.0-34.0) Mean Corpuscular Hemoglobin 33.4 % 34.6 % Concent (32.0-36.0) (32.0-36.0) Red Cell Distribution Width 15.0 % 14.7 % (11.6-17.2) (11.6-17.2) Platelet Count 360 TH/MM3 385 TH/MM3 (150-450) (150-450) Mean Platelet Volume 7.7 FL 7.7 FL (7.0-11.0) (7.0-11.0) Neutrophils (%) (Auto) 80.4 % (16.0-70.0) Lymphocytes (%) (Auto) 4.8 % (9.0-44.0) Monocytes (%) (Auto) 10.0 % (0.0-8.0) Eosinophils (%) (Auto) 3.5 % (0.0-4.0) Basophils (%) (Auto) 1.3 % (0.0-2.0) Neutrophils # (Auto) 12.3 TH/MM3 (1.8-7.7) Lymphocytes # (Auto) 0.7 TH/MM3 (1.0-4.8) Monocytes # (Auto) 1.5 TH/MM3 (0-0.9) Eosinophils # (Auto) 0.5 TH/MM3 (0-0.4) Basophils # (Auto) 0.2 TH/MM3 (0-0.2) CBC Comment DIFF FINAL Differential Comment Phosphorus Level 3.5 MG/DL 4.2 MG/DL (2.5-4.9) (2.5-4.9) Magnesium Level 2.7 MG/DL (1.5-2.5) Albumin 1.7 GM/DL (3.4-5.0) Test 07/23/16 14:24 Potassium Level 3.4 MEQ/L (3.5-5.1) (Vikki Liu) Result Diagram: 07/23/16 0310 07/23/16 1424 Procedures 07/04/16: Right radial arterial line placement 07/04/16: Lumbar drain placement 07/04/16: Right IJ cortis placement 07/04/16: TEVAR and LLE fasciotomy. 07/06/16: Extubation 07/07/16: Reintubation 07/08/16: Platelet transfusion 07/08/16: Lumbar drain removed 07/11/16: Right IJ cortis removed 07/11/16: Left IJ CVL placement . 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 (2) Delirium (3) Respiratory failure (4) NSTEMI (non-ST elevated myocardial infarction) (5) Stroke Comment: MRI shows "small punctate infarcts involving the left cerebellar hemisphere and deep white matter bilaterally " in a background of amyloid angiopathy. . (6) Acute kidney insufficiency Comment: Probably a result of ischemic injury from dissection. . (7) HTN (hypertension) (8) Hepatitis C (9) Elevated troponin (10) Cholecystitis Comment: s/p cholecystostomy tube placement. . (11) COPD (chronic obstructive pulmonary disease) Symptom Scale: (1) Pain 0-10 Scale: Unable to quantify Comment: Possible causes of pain include postop surgical pain, circulation, edema, ETT, OG, invasive lines, immobility, bedbound status etc. (2) Dyspnea 0-10 Scale: Unable to quantify Comment: Patient remains orotracheally intubated, tolerating several hours of CPAP trials. Patient will likely be extubated verbal in the upcoming days. If or when the patient is extubated, whether intentionally or unintentionally, the patient's family is requesting that the patient NOT BE REINTUBATED. . Pertinent Non-Medical Issues Psychosocial: Patient was born in [place] and moved to [place] as young adult. Patient has a long history of polysubstance abuse which includes EtOH consumption and crack cocaine. The patient continues to drink 8-12 beers daily. The patient has never been and has no children. His mother and 2 of his siblings live locally and a third brother lives in [place]. Patient's mother states patient has been diagnosed with oppositional defiant disorder and is a history of medical noncompliance. Prior to his hospitalization, the patient was living with an elderly gentleman and they were helping each other. 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 The patient received disability approximately 1 week prior to this hospitalization. Spiritual: [employer] Legal: Per [place] statutes, health care proxy decision making would fall to the patient's mother. Family members state while in the ED at [facility] patient identified his brother (Luis) as his medical decision maker, apparently the appropriate documentation and was not completed. Family members are in agreement and working together on patient's medical decisions. However the patient's mother and 2 other siblings (Olga and Jean Carlos) has opted out of decision making role, deferring to brother Luis. Ethical issues impacting care: No known ethical issues impacting care at this time . Important Contacts Nathalia Izquierdo, mother: [phone] Brother (Luis); [phone] [id number] (Chanda); [phone] Sister (Olga); [phone] Brother (Jean Carlos): [phone] . Prognosis Patient is a 60 year old man who was admitted with a type B aortic dissection. He is currently critically ill status post with TAVER and LLE fasciotomy. His past medical history is significant for polysubstance abuse (EtOH/crack cocaine) , HTN, CAD, COPD, hepatitis C/cirrhosis as well as medical noncompliance The patient currently remains orotracheally intubated and sedated. BUBBA - patient likely sustained severe ischemic injuries to both kidneys secondary to dissection involving renal arteries. It is certainly possible that this patient will be successfully extubated and upcoming days, eventually being stable enough to be discharged to SNF. However given the patient's past medical history, noncompliance, and this recent acute event, the patient has a strong probability into new decline and/or complications. . Code Status: No Code (patient is currently intubated. CODE STATUS changed to NO CODEDNR. If/when the patient is extubated, whether intentionally or unintentionally, the family requested the patient not be reintubated.) Plan * FULL CODE * Decision-making: Per [place] statutes, health care proxy decision making would fall to the patient's mother. Family members state while in the ED at [facility] patient identified his brother (Luis) as his medical decision maker, apparently the appropriate documentation and was not completed. Family members are in agreement and working together on patient's medical decisions. However the patient's mother and 2 other siblings (Olga and Jean Carlos) has opted out of decision making role, therefore decision-making multiple to the patient' s brother Luis. * Goals: Aggressive at this time per patient. * Patient showing progressive neurological improvement. Nodding and shaking his head in response to yes/no questions, reproducible. Following commands. Per Dr. Castillo, patient indicated aggressive goals by nodding his head "yes" to wanting everything done to help him. Patient nodded yes to wanting recent intubation and tracheostomy if necessary. Later in the day patient again indicated aggressive goals to palliative care nodding his head yes when asked about CPR. CODE STATUS has been changed to FULL CODE. Patient's family was notified by palliative care. * Discussed with patient's nurse, Dr. De La Cruz and Dr. Castillo. * Spoke to patient's brother. Luis, via telephone. Update provided on the patient's clinical condition and improved neurological status. Assessed that patient had indicated to hospital staff, on 2 different occasions this morning, and he wanted everything done to help him live. Patient's brother was surprised his brother would say that but is supportive of his brothers goals. Questions answered to the best of my ability. * Symptom managementpain: Possible causes of pain include postop surgical pain , circulation, edema, ETT, OG, invasive lines, immobility, bedbound status etc. Patient currently on titrated Diprivan drip. PRN fentanyl is available for breakthrough pain, but has not been administered in the past 24 hours. Palliative care will continue to monitor PRN were immense and make recommendations as indicated. * Palliative care will continue to follow this patient throughout his hospitalization to establish trust, assist with symptom management and clarification of medical treatment goals. . (Vikki Liu) Collaborating MD Comments . Chart reviewed. Cased discussed with palliative care SOFTWARE INTEGRATOR. Above SOFTWARE INTEGRATOR note reviewed and I concur. . (Obed De La Cruz MD) Vikki Liu Jul 23, 2016 15:56 Obed De La Cruz MD September 09, 2016 15:05 * Discussed with vascular surgery and patient's nurse Odette. * Palliative care contact information provided to the patient's family. * Palliative care will continue to follow this patient throughout his hospitalization to establish trust, assist with symptom management and clarification of medical treatment goals. . Vikki Liu Jul 23, 2016 15:56
[2016-07-23] MEDS: SODIUM CHLOR 0.9% 1000 ML INJ 1,000 ML IV SCH (19:15)
[2016-07-23] MEDS: MELATONIN 5 MG TAB PO SCH (21:23)
[2016-07-24] VITALS (17 sets, daily range): BP systolic 119–172; BP diastolic 59–74; PULSE 64–94; RESP 20–31; TEMP 98.2–99.2; O2SAT 95–100
[2016-07-24] MEDS: CHLORHEXIDINE GLUCONATE 2 % 1 PACK (2 CLOTHS) TOP SCH (04:00)
[2016-07-24 05:09] LABS: BICARBONATE 22.7 MEQ/L (21.0-32.0)
[2016-07-24] MEDS: PIPERACIL-TAZO 2.25 GM PREMIX 50 ML IV SCH ×2 (05:20→17:49)
[2016-07-24] MEDS: BUMETANIDE INJ 1 MG/4 ML VIAL IV PUSH SCH ×3 (05:20→21:20)
[2016-07-24] MEDS: METOCLOPRAMIDE HCL 10 MG/2 ML VIAL IV PUSH SCH ×3 (05:20→21:21)
[2016-07-24] MEDS: DOBUTamine 250 MG/D5W 250 ML PREMIX DRIP IV SCH ×2 (05:24→21:07)
[2016-07-24] MEDS: INSULIN NovoLIN REGULAR SUPPLEMENTAL SCALE SQ SCH ×4 (06:00→17:49)
[2016-07-24] MEDS: ARTIFICIAL TEARS OPTH SOLN 15 ML BTL EACH EYE SCH ×3 (06:00→21:19)
--- NOTE | 2016-07-24 07:34 | PD.VS.PN ---
Subjective POD #: 20 Procedure(s): TEVAR, L LE fasciotomies for acute TBAD with visceral/renal/LLE malperfusion Subjective/Hospital Course Looks great. Pt himself requested full code yesterday responds to complex commands and nods appropriately. Objective Neuro: alert, oriented, follows complex commands Pulmonary: weaning vent, albeit slowly but appropriately Cardiac: reg rate, no issues FEN/GI: papo TF although held today for potential trach cholecystostomy : creatinine 4.3, slowly trending down good UOP getting diuresed ID Antibiotics(date/duration): none ID Cultures: NGTD Heme: no issues Vascular: Feet well perfused Laboratory Laboratory Tests Test 07/23/16 07/24/16 14:24 03:34 Potassium Level 3.4 3.0 Sodium Level 144 Chloride Level 108 Carbon Dioxide Level 22.7 Anion Gap 13 Blood Urea Nitrogen 107 Creatinine 4.30 Estimat Glomerular Filtration 14 Rate Random Glucose 133 Calcium Level 8.9 Assessment and Plan Assessment: (1) Dissecting aneurysm of thoracic aorta, Saran type B Status: Acute Plan Continue diureses Full code I think that a tracheostomy would be very beneficial for vent wean PROFO boot and PT Hamlet Long MD FACS records management analyst [facility] - Heart and Vascular Surgery at [facility] Hamlet Long MD Jul 24, 2016 07:34
[2016-07-24] MEDS: CHLORHEXIDINE 0.12% (ORAL KIT) 15 ML CUP MT SCH ×2 (08:00→21:18)
[2016-07-24] MEDS: HEPARIN SODIUM - SQ 10,000 UNITS/ML VIAL SQ SCH ×2 (08:07→21:19)
[2016-07-24] MEDS: CALCIUM ACETATE 667 MG CAP PO SCH ×3 (08:07→17:49)
[2016-07-24] MEDS: PANTOPRAZOLE SODIUM 40 MG VIAL IV SCH (08:07)
[2016-07-24] MEDS: ASPIRIN 81 MG CHEW TAB CHEW SCH (08:07)
[2016-07-24] MEDS: THIAMINE HCL 100 MG TAB PO SCH (08:08)
[2016-07-24] MEDS: cloNIDine HCL 0.1 MG TAB PO PRN (08:08)
[2016-07-24] MEDS: QUEtiapine FUMARATE 25 MG TAB PO SCH ×2 (08:08→21:00)
[2016-07-24] MEDS: MULTIVITAMIN TAB PO SCH (08:08)
[2016-07-24] MEDS: POLYETHYLENE GLYCOL 17 GM PKG OG-TUBE SCH ×2 (08:23→21:00)
[2016-07-24] MEDS: DOCUSATE SODIUM 50 MG/SENNA 8.6 MG TAB PO SCH ×2 (08:24→21:00)
[2016-07-24] MEDS: LACTULOSE SYRUP 20 GM/30 ML CUP PO SCH ×4 (08:24→21:00)
--- NOTE | 2016-07-24 08:53 | HHI.CCPN ---
Subjective Remarks/Hospital Course Hospital Course: This is a 60-year-old male who is transferred emergently from outside hospital with per report and acute type B dissection. Apparently the patient told his family member today that he had searing back pain and was taken to the emergency department. A CT of the chest at that time showed a type B dissection. The patient was intubated the outside facility and transferred to [facility] for emergent evaluation management. Unfortunately, the patient is unable to provide any additional history at this time. I was at bedside and the patient arrived to the surgical intensive care unit. Dr. Long and I both evaluated the patient and when he arrived he was in a junctional bradycardia with heart rate in the 40s. He had obvious ST depressions in lead II on telemetry. Our initial concern was that we have extended the dissection into the type A dissection. We also did not have any CT of the abdomen and pelvis. On her physical exam, the patient had a cold left foot without pulses. I emergently placed a right radial arterial line, please see separate procedure note for details. We then went emergently to the CT scanner for repeat CT aortogram of the chest abdomen and pelvis to investigate the extent to which the dissection has extended. The CT aortogram demonstrated that this was still a type B dissection with the celiac artery being significantly compressed and possibly comprising flow from the dissection flap. The right kidney appears to be perfused off the false lumen and not the true lumen, and there is no contrast going down the left femoral artery. Patient was then brought back to the intensive care unit. His blood pressure is controlled on nicardipine infusion for goal systolic blood pressure less than 110. A 12-lead EKG at that time was done which demonstrated significant ST depressions in the inferior leads as well as the far lateral leads consistent with subendocardial ischemia. At the request of Dr. Long in anticipation of going emergently to the operative theater, I placed a lumbar drain for spinal protection, please see separate procedure note for details. At that point the patient was taken emergently to the operating room. Critical care medicine is been consulted to evaluate and manage the patient's type B dissection, hemodynamic's, acute hypoxic respiratory failure. 07/05: taken to OR for TEVAR overnight. lactate cleared overnight. uop adequate. Cr elevated to 1.8 this AM. He is on Coreg 50 mg by mouth 07/06: oliguric overnight. Cr rising. however, lactate cleared. other markers of end-organ perfusion better. likely ATN from time of dissection. awake following commands. moving bilateral lower extremities. clear CSF in lumbar drain. on intermittent norepinephrine to maintain spinal perfusion. 07/07: extubated yesterday, followed commands, good pulmonary mechanics. However , after extubation, became acutely delirious- probable combination of etoh withdraw and icu delirium, some pain. mental status waxed and waned throughout the day and ultimately reintubated overnight for worsening waning mental status and hypoxia. post-extubation it has been documented that he continues to move his bilateral lower extremities to painful stimuli and spontaneously. does not follow commands this morning. troponins downtrending. cardiology evaluated the patient yesterday, formal note pending, but per my conversation, plan was for ongoing conservative management as we are doing, and plan for nuc med stress test when stable. 07/08: still moving bilateral LEs spontaneously and w/d to pain. remains intubated with persistent agitation. hypoxia improving. platelets continue to fall, likely a combination of consumption, BUBBA, liver disease. will give unit of platelets prior to d/c lumbar drain. 07/09: Troponin spill resolving without evidence of ongoing injury. Major obstacle is agitation related to ETOH withdrawal followed by necessary sedation. Continue to work toward vent weaning. 07/10: Afebrile. Not following commands. Continues to be agitated for reasons above. Tolerating tube feeding at goal rate. Creatinine hopefully has plateaued. 07/11: CURRENT TEMPERATURE 100.2. MRI brain yesterday revealed left cellular restricted diffusion area likely acute infarct with small punctate areas within the coronal radiata possibly embolic event. Patient is arousable and will move all 4 extremities but not following commands. Left foot remains cool. Tolerating tube feeding. No bowel movement times 4 days. 07/12: Tmax 99.7. Currently 99. Noted right vertebral/distal left MCA/mid right COLORING CHECKER stenosis on imaging yesterday. Central line exchange from right to left side due to bleeding. No bowel movement for tolerating tube feedings with very low residuals. Still wean sedation. 07/13: Currently afebrile. Patient with soap side enema yesterday with's positive BM 3 overnight.. Go containment device currently in place. Currently hypertensive/when necessary labetalol and clonidine will be added. Noted liberalize SCI around 120 systolic blood pressure. Arousable on the ventilator and moves all 4 extremities spontaneously but not following commands. 07/14: Tmax 99.3. No significant bowel movement overnight. Currently hypotensive. Noted SCI around 120 systolic blood pressure recommended by vascular surgery. Arousable on ventilator on sedation vacation moves all 4 extremity spontaneously but not to commands. Subjective: 07/15: Afebrile. -2775 cc stool past 24 hours. Currently hypertensive. Bradycardic. Requiring antihypertensives. Plan for percutaneous cholecystostomy tube today. 07/16: Remains afebrile. CXR clearing. Renal injury without change, spontaneous urine acceptable. 07/17: No material change. Tolerates CPAP. 07/18: Family is talking with palliative Care service. 07/19: Will try CPAP with decreasing pressure support. DNR status clouds issue for extubation. 07/20: Failed SBT yesterday, could not tolerate lower pressure support. 07/21: Tolerates 5/5 SBT for several hours. Unresponsive, no eye opening today. No improvement in motor function. Extensive discussion with his brother Luis yesterday. Family is pretty consolidated in their wish to withdraw artificial support. Hopefully we can discuss options with all principals Friday. 07/22: Nods head accurately to questions today. Moves 4 limbs to command, left is minimal. 07/23: Patient nods head yes to wanting re-intubation and trach if necessary. He nods "yes" to wanting us to do everything to help him live. 07/24: Still wants trial extubation and reintubation if necessary. Objective Vital Signs Date Time Temp Pulse Resp B/P Pulse Ox O2 Delivery O2 Flow Rate FiO2 07/24/16 08:00 99 35 07/24/16 08:00 99.1 76 24 172/74 07/24/16 07:00 Mechanical Ventilator Intake and Output 07/23/16 07/23/16 07/24/16 08:00 16:00 00:00 Intake Total 608 ml 804 ml 613 ml Output Total 855 ml 900 ml 860 ml Balance -247 ml -96 ml -247 ml Result Diagram: 07/23/16 0310 07/24/16 0334 Imaging Last Impressions Chest X-Ray 07/15/16 0600 Signed Impressions: Service Date/Time: Friday, July 15, 2016 04:38 - CONCLUSION: Some worsening of the bilateral pulmonary infiltrates. Joe Appiah Jr., MD Abdomen X-Ray 07/15/16 0600 Signed Impressions: Service Date/Time: Friday, July 15, 2016 04:41 - CONCLUSION: No dilated bowel to suggest an obstruction. Joe Appiah Jr., MD Gall Bladder Ultrasound 07/14/16 0000 Signed Impressions: Service Date/Time: Thursday, July 14, 2016 11:36 - CONCLUSION: Abnormal gallbladder as described above. Cholecystitis would be consideration. The patient is only minimally tender around the gallbladder. Donis Hernandez MD FACR Abdomen/Pelvis CT 07/13/16 0000 Signed Impressions: Service Date/Time: Wednesday, July 13, 2016 17:29 - CONCLUSION: 1. Abnormal appearance of the gallbladder with wall thickening and possible pericholecystic fluid. No calcified stones. Recommend hepatobiliary tract scan to evaluate for acalculus cholecystitis. 2. Bilateral lower lung consolidation and bilateral pleural effusions. 3. Moderate amount of stool in the left colon. 4. Bilateral nonobstructing renal stones. Joe De Leon MD Neck Magnetic Resonance Angiography 07/11/16 0000 Signed Impressions: Service Date/Time: June 14:29 - CONCLUSION: 1. No evidence of carotid stenosis. 2. Short segment high-grade stenosis involving the mid right vertebral artery greater than 80 with a patent left vertebral artery Abhijeet Salinas MD Head Magnetic Resonance Angiography 07/11/16 0000 Signed Impressions: Service Date/Time: June 14:29 - CONCLUSION: 1. Evidence of atherosclerotic disease with focal distal left MCA branch stenosis and focal mid right COLORING CHECKER stenosis. 2. No proximal high grade stenosis or aneurysm. Bladimir Gasca MD Brain MRI 07/10/16 0000 Signed Impressions: Service Date/Time: Sunday, July 10, 2016 15:03 - CONCLUSION: 1. Small punctate infarcts involving the left cerebellar hemisphere and deep white matter bilaterally in this patient with a background of amyloid angiopathy. No acute hemorrhage is seen. Abhijeet Salinas MD Renal Ultrasound 07/08/16 0000 Signed Impressions: Service Date/Time: Friday, July 08, 2016 17:16 - CONCLUSION: 1. Resistive indices could not be obtained on the right side into the patient's body habitus and shadowing bowel gas. Left renal artery resistive indices are within normal limits. 2. No significant abdominal aortic aneurysm identified status post repair. 3. Probable 7 mm nonobstructing midpole right renal calculus. 4. Tiny left lower pole cyst measuring 1.5 cm. Hamlet Vinson MD Aorta CTA 07/04/16 0000 Signed Impressions: Service Date/Time: June 19:53 - CONCLUSION: 1. Extensive aortic dissection extending from the proximal transverse aorta just distal to the origin of the left subclavian artery. Dissection extends distally through both superficial femoral arteries. 2. Occlusion of the right renal artery with absent perfusion of the right kidney. Dissection of the left renal artery with absent perfusion of the anterior left kidney. 3. 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 4. Occlusion of left external iliac artery and right internal iliac artery. 5. ET tube in satisfactory position. Dependent consolidation in both lungs. Probable mild liver cirrhosis. No obstruction or free fluid. Russell catheter in decompressed bladder. See above discussion. Rodriguez Jeff MD Objective Remarks GENERAL: 60-year-old male. HEENT: Normocephalic. Atraumatic. Pupils 3 mm, reactive, NECK: Supple. Orotracheally intubated. CHEST: Clear to auscultation, no wheezes rales or rhonchi. More comfortable pattern. CARDIOVASCULAR: RRR. S1, S2 no S4. No m,r. No JVD ABDOMEN: Non-distended, soft. No rigidity. Active bowel sounds. MUSCULOSKELETAL: Distal pulses 2+. Left leg weak/numb. NEUROLOGICAL: Withdraws both upper and LEs to noxious stimuli. Opens eyes, nods head to questions, reproducible. Date of Insertion: Jul 11, 2016 Line: Central Venous Catheter Side: Left Location: Internal, Jugular A/P Assessment and Plan Neuro/Psych: Left cerebellar lacunar infarct Right vertebral/distal left MCA and mid right COLORING CHECKER stenosis Severe Agitated Delirium Alcohol Withdrawal - up to 15 beers daily Risk for spinal cord hypoperfusion Alcohol abuse History of polysubstance abuse including crack cocaine Lumbar drain placement - removed 07/08 Insomnia On melatonin 5 mg at night as needed for insomnia Daily thiamine 100 mg daily for EtOH use MRI brain 07/10 revealed left cerebellar cystic diffusion region with small punctate areas in the suarez radiata likely embolic. Possible amyloid. MRA head/neck revealed right vertebral 80% short segment stenosis, distal left MCA and mid right COLORING CHECKER stenosis EEG 07/10 revealed no seizure activity Delirium/Withdraw regimen: --Tizanidine 2mg po BID for pain adjuvant and to help with delirium --Seroquel 25 mg twice a day for delirium/weaning to off --Haldol 5mg iv q4h prn for breakthrough agitation. --Valium 5mg po q8hr for etoh withdraw, start slow taper over through 07/15 --Ativan 1mg iv q15min prn for withdraw symptoms --continue to avoid Precedex for now given recent junctional bradycardia, NSTEMI , and need for continued spinal cord protection with goal systolic blood pressure of 140 to 160 recommended per vascular surgery. -- Okayed with Dr. Long for aspirin 324 mg daily Respiratory: Acute hypoxic and hypercarbic respiratory failure -- PRVC 18/550/0.8/5/40 Vent bundle Bronchodilator therapy every 6 hours and albuterol every 2 hours when needed Head of bed 30 07/12 SAT/SBT approximately 3 hours.. Yesterday minimal due to multiple scans performed Wean FiO2 for goal SPO2 greater than 92% Follow-up a.m. chest x-ray showed small pleural effusions bilaterally/ essentially stable chest x-ray Noted possibly will need bilateral chest tubes if unable to successfully wean. Possible tracheostomy Cardiovascular: Postop day #18 T4 with left lower x-ray fasciotomy secondary to type B aortic dissection with renal/visceral and left lower extreme L perfusion Thoracic endovascular stent with left lower extremity fasciotomy/ compartments with [address] Long Acute type B dissection- secured Type II NSTEMI- Demand Ischemia- resolving Junction bradycardia- resolved. Lactic Acidosis- resolved. Goal SBP > 120 for spinal cord protection -- troponin downtrending. 6.81 -- elevated troponins likely combination of demand ischemia and poor renal clearance -- Cardiology: Dr. Mondragon following. plan for conservative management with myocardial perfusion scan when stable. -- 2d echo: EF 55%, no RWMA. 2-D echo 07/08 repeat EF 60-65%. Mild MR. At [facility] dilated. RENO 49 mmHg --Cardiac output currently is 3.8. SVV is 13 As needed labetalol/clonidine for systolic blood pressure greater than 160 My partner added hydralazine overnight. --Use norepinephrine to maintain systolic blood pressure greater than 120 Renal: Acute kidney injury Acute Tubular Necrosis Right and left nephrolithiasis Likely secondary to hypoperfusion of the kidney from dissection, ATN -- FENa 07/07 1.2% consistent with ATN. Urine eos negative. Urine urea ordered -- order renal ultrasound with doppler. Revealed patent renal arteries bilaterally. Tiny 7 mm right renal calculus and 1.5 cm left renal cyst. -- Strict I/Os Russell placement to be maintained --nephrology consult 07/08 appreciated. No indication for dialysis at this point Avoid nephrotoxins drugs BUN/creatinine. Stabilized FEN/GI: Colonic ileus Acute protein calorie malnutrition- mild Non-anion gap metabolic acidosis- resolved. Hyperphosphatemia Hyper-magnesium Hyponatremia History of peptic ulcer disease Hepatitis C -from IV drug use Elevated AST TF: Nepro at goal 40 cc an hour --nutrition consult. Daily BMP --Currently on PhosLo 2668 mg 3 times a day for hyperphosphatemia Protonix for GI prophylaxis. Stephie-Colace twice a day for bowel regimen. MiraLAX twice a day lactulose 4 times daily. KUB revealed 8 cm transverse colon ileus. Positive results with sepsis enema yesterday. CT abdomen/those revealed wall thickening or gallbladder. 2 right midpole no obstructing kidney stones, left circumflex continues on, to semi-bilateral pleural effusions and large amount stool left colon. Plan for percutaneous cholecystostomy tube for gallbladder. Not a surgical candidate at this time. Heme/ID: Leukocytosislikely reactive Acute Blood Loss Anemia Thrombocytopenia Daily CBC No infectious etiology suspected this time Daily coags --thrombocytopenia is likely multifactorial from liver disease, consumptive from critical illness and dissection. Blood cultures/sputum/urine ordered 07/11 no growth to date Endocrine: Hyperglycemia of critical illness -- SSI, medium scale, every 6 hours Prophylaxis: GI Prophylaxis Protonix 40 mg IV every 24 DVT Prophylaxis -- SCDs/heparin The patient may receive heparin subcutaneous every 12. Patient may additionally receive aspirin, but not Plavix. Lines: 07/13 -radial arterial line --07/04-07/11 right IJ cortis -- Left IJ CVL 07/11 present - out Overall impression: Remains responsive today. Renal function unchanged. Patient' s intentions are clearly for full code. Carlos Campos MD Jul 24, 2016 08:53
[2016-07-24] MEDS: SODIUM CHLORIDE 0.9% FLUSH 10 ML FLUSH IVF SCH (09:00)
[2016-07-24] MEDS: hydrALAZINE HCL 20 MG/ML VIAL IV PRN (10:06)
[2016-07-24] MEDS: POTASSIUM CHLOR 20 MEQ PREMIX 100 ML IV SCH ×2 (12:45→14:00)
[2016-07-24] MEDS: RESP: ALBUTEROL 2.5 MG/3 ML NEB (PRN) NEB (16:10)
--- NOTE | 2016-07-24 17:24 | HHI.NPPN ---
Subjective History of Present Illness This patient is a 60-year-old male apparently with a history of previous alcohol and crack usage also has a history of hepatitis C, coronary disease and hypertension as well as medical noncompliance. Patient was admitted with a type B aortic dissection. CTA thoracic aorta and abdominal aorta performed July 04, 2016 revealed occluded right renal artery as well as perfusion only to the left posterior aspect of the left kidney. Patient status post emergent TAVA, left lower extremity fasciectomy mention of previous nonperfusion to that extremity. Patient's creatinine level was within normal range from previous records prior to this admission however patient had evidence of renal sufficiency on presentation and his creatinine level has continued to rise to a level of 4.75 Date of Consultation with marginal urine output. Interval History Lethargic. Review of Systems General General Remarks Unobtainable because of clinical status. Objective Data Data 07/23/16 07/24/16 19:00 07:00 Intake Total 804 ml 983 ml Output Total 900 ml 1710 ml Balance -96 ml -727 ml Intake Oral 0 ml IV Total 532 ml 374 ml Tube Feeding 247 ml 489 ml Tube Irrigant 25 ml Other 120 ml Output Urine Total 850 ml 1650 ml Drainage Total 50 ml 60 ml # Bowel Movements 0 2 Vital Signs Date Time Temp Pulse Resp B/P Pulse Ox O2 Delivery O2 Flow Rate FiO2 07/24/16 16:00 66 07/24/16 16:00 98.5 66 24 119/59 99 07/24/16 14:00 66 07/24/16 13:15 100 Venturi Mask 6 50 07/24/16 13:15 95 Venturi Mask 6.00 50 07/24/16 12:00 94 07/24/16 12:00 35 07/24/16 12:00 98.8 94 31 148/66 96 07/24/16 10:53 95 35 07/24/16 10:00 87 07/24/16 08:00 99 35 07/24/16 08:00 35 07/24/16 08:00 99.1 76 24 172/74 99 07/24/16 08:00 35 07/24/16 08:00 76 07/24/16 07:00 99 Mechanical Ventilator 35 07/24/16 06:00 74 07/24/16 04:04 98 35 07/24/16 04:00 76 07/24/16 04:00 99.2 76 22 133/68 97 07/24/16 04:00 35 07/24/16 02:00 82 07/24/16 01:03 99 35 07/24/16 00:00 82 07/24/16 00:00 98.2 82 20 146/65 98 07/24/16 00:00 35 07/23/16 22:00 82 07/23/16 20:00 35 07/23/16 20:00 78 07/23/16 20:00 98.8 78 21 163/73 96 07/23/16 19:56 96 35 07/23/16 19:00 95 Mechanical Ventilator 35 07/23/16 18:00 77 -: 07/23/16 0310 07/24/16 0334 Physical Exam General Appearance: No Acute Distress, Comfortable Pulmonary Resp Exam: Clear Bilaterally, Breath Sounds Equal, No Distress Cardiology CV Exam: Regular, Normal Sinus Rhythm Gastrointestinal/Abdomen GI Exam: Soft, Non-Tender Integumentary Skin Exam: Clear, Warm Extremeties Extremities Exam: Moderate Edema (edema lower extremities however is improving. One plus.), Dependent Edema Assessment/Plan Problem List: (1) Acute kidney insufficiency Plan: Creatinine is improving albeit slowly. Urine output fairly good with diuretic therapy. Supplement potassium has been ordered. Medications should be adjusted for the patient's estimated GFR if clinically indicated. Avoid agents with significant potential for nephrotoxicity possible including NSAIDs for analgesia, iodine contrast agents if possible. Gadolinium is contraindicated if the GFR is below 30. We'll see patient intermittently. (2) Hepatitis C Plan: Not playing a role as far as his acute renal failure is concerned in this setting. (3) HTN (hypertension) Eufemia Walters MD Jul 24, 2016 17:24
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
[2016-07-24] MEDS: SODIUM CHLOR 0.9% 1000 ML INJ 1,000 ML IV SCH (19:57)
[2016-07-24] MEDS: MELATONIN 5 MG TAB PO SCH (21:00)
[2016-07-25] VITALS (16 sets, daily range): BP systolic 148–190; BP diastolic 69–99; PULSE 61–98; RESP 15–32; TEMP 98–99; O2SAT 95–100
[2016-07-25] MEDS: hydrALAZINE HCL 20 MG/ML VIAL IV PRN ×4 (00:13→22:46)
[2016-07-25] MEDS: LABETALOL HCL 100 MG/20 ML VIAL IV PUSH PRN ×2 (03:10→09:34)
[2016-07-25] MEDS: CHLORHEXIDINE GLUCONATE 2 % 1 PACK (2 CLOTHS) TOP SCH (04:34)
[2016-07-25 04:53] LABS: BICARBONATE 22.4 MEQ/L (21.0-32.0); POTASSIUM 3.4 MEQ/L (3.5-5.1)
[2016-07-25] MEDS: ARTIFICIAL TEARS OPTH SOLN 15 ML BTL EACH EYE SCH ×3 (05:09→20:47)
[2016-07-25] MEDS: METOCLOPRAMIDE HCL 10 MG/2 ML VIAL IV PUSH SCH ×3 (05:10→20:46)
[2016-07-25] MEDS: BUMETANIDE INJ 1 MG/4 ML VIAL IV PUSH SCH ×3 (05:11→20:47)
[2016-07-25] MEDS: PIPERACIL-TAZO 2.25 GM PREMIX 50 ML IV SCH ×2 (05:11→18:00)
[2016-07-25] MEDS: INSULIN NovoLIN REGULAR SUPPLEMENTAL SCALE SQ SCH ×4 (05:54→17:34)
[2016-07-25] MEDS: SODIUM CHLORIDE 0.9% FLUSH 10 ML FLUSH IVF SCH (08:02)
[2016-07-25] MEDS: RESP: ALBUTEROL 2.5 MG/3 ML NEB (PRN) NEB (08:09)
[2016-07-25] MEDS: CALCIUM ACETATE 667 MG CAP PO SCH ×3 (09:00→17:34)
[2016-07-25] MEDS: POLYETHYLENE GLYCOL 17 GM PKG OG-TUBE SCH ×2 (09:00→20:33)
[2016-07-25] MEDS: LACTULOSE SYRUP 20 GM/30 ML CUP PO SCH ×4 (09:00→20:33)
[2016-07-25] MEDS: CHLORHEXIDINE 0.12% (ORAL KIT) 15 ML CUP MT SCH ×2 (09:33→20:46)
[2016-07-25] MEDS: PANTOPRAZOLE SODIUM 40 MG VIAL IV SCH (09:35)
[2016-07-25] MEDS: ASPIRIN 81 MG CHEW TAB CHEW SCH (09:36)
[2016-07-25] MEDS: HEPARIN SODIUM - SQ 10,000 UNITS/ML VIAL SQ SCH ×2 (09:37→20:46)
[2016-07-25] MEDS: MULTIVITAMIN TAB PO SCH (09:37)
[2016-07-25] MEDS: DOCUSATE SODIUM 50 MG/SENNA 8.6 MG TAB PO SCH ×2 (09:37→20:47)
[2016-07-25] MEDS: THIAMINE HCL 100 MG TAB PO SCH (09:37)
[2016-07-25] MEDS: QUEtiapine FUMARATE 25 MG TAB PO SCH ×2 (09:37→20:48)
--- NOTE | 2016-07-25 09:42 | HHI.CCPN ---
Subjective Remarks/Hospital Course Hospital Course: This is a 60-year-old male who is transferred emergently from outside hospital with per report and acute type B dissection. Apparently the patient told his family member today that he had searing back pain and was taken to the emergency department. A CT of the chest at that time showed a type B dissection. The patient was intubated the outside facility and transferred to [facility] for emergent evaluation management. Unfortunately, the patient is unable to provide any additional history at this time. I was at bedside and the patient arrived to the surgical intensive care unit. Dr. Long and I both evaluated the patient and when he arrived he was in a junctional bradycardia with heart rate in the 40s. He had obvious ST depressions in lead II on telemetry. Our initial concern was that we have extended the dissection into the type A dissection. We also did not have any CT of the abdomen and pelvis. On her physical exam, the patient had a cold left foot without pulses. I emergently placed a right radial arterial line, please see separate procedure note for details. We then went emergently to the CT scanner for repeat CT aortogram of the chest abdomen and pelvis to investigate the extent to which the dissection has extended. The CT aortogram demonstrated that this was still a type B dissection with the celiac artery being significantly compressed and possibly comprising flow from the dissection flap. The right kidney appears to be perfused off the false lumen and not the true lumen, and there is no contrast going down the left femoral artery. Patient was then brought back to the intensive care unit. His blood pressure is controlled on nicardipine infusion for goal systolic blood pressure less than 110. A 12-lead EKG at that time was done which demonstrated significant ST depressions in the inferior leads as well as the far lateral leads consistent with subendocardial ischemia. At the request of Dr. Long in anticipation of going emergently to the operative theater, I placed a lumbar drain for spinal protection, please see separate procedure note for details. At that point the patient was taken emergently to the operating room. Critical care medicine is been consulted to evaluate and manage the patient's type B dissection, hemodynamic's, acute hypoxic respiratory failure. 07/05: taken to OR for TEVAR overnight. lactate cleared overnight. uop adequate. Cr elevated to 1.8 this AM. He is on Coreg 50 mg by mouth 07/06: oliguric overnight. Cr rising. however, lactate cleared. other markers of end-organ perfusion better. likely ATN from time of dissection. awake following commands. moving bilateral lower extremities. clear CSF in lumbar drain. on intermittent norepinephrine to maintain spinal perfusion. 07/07: extubated yesterday, followed commands, good pulmonary mechanics. However , after extubation, became acutely delirious- probable combination of etoh withdraw and icu delirium, some pain. mental status waxed and waned throughout the day and ultimately reintubated overnight for worsening waning mental status and hypoxia. post-extubation it has been documented that he continues to move his bilateral lower extremities to painful stimuli and spontaneously. does not follow commands this morning. troponins downtrending. cardiology evaluated the patient yesterday, formal note pending, but per my conversation, plan was for ongoing conservative management as we are doing, and plan for nuc med stress test when stable. 07/08: still moving bilateral LEs spontaneously and w/d to pain. remains intubated with persistent agitation. hypoxia improving. platelets continue to fall, likely a combination of consumption, BUBBA, liver disease. will give unit of platelets prior to d/c lumbar drain. 07/09: Troponin spill resolving without evidence of ongoing injury. Major obstacle is agitation related to ETOH withdrawal followed by necessary sedation. Continue to work toward vent weaning. 07/10: Afebrile. Not following commands. Continues to be agitated for reasons above. Tolerating tube feeding at goal rate. Creatinine hopefully has plateaued. 07/11: CURRENT TEMPERATURE 100.2. MRI brain yesterday revealed left cellular restricted diffusion area likely acute infarct with small punctate areas within the coronal radiata possibly embolic event. Patient is arousable and will move all 4 extremities but not following commands. Left foot remains cool. Tolerating tube feeding. No bowel movement times 4 days. 07/12: Tmax 99.7. Currently 99. Noted right vertebral/distal left MCA/mid right NEIGHB[employer]HOOD WORKER stenosis on imaging yesterday. Central line exchange from right to left side due to bleeding. No bowel movement for tolerating tube feedings with very low residuals. Still wean sedation. 07/13: Currently afebrile. Patient with soap side enema yesterday with's positive BM 3 overnight.. Go containment device currently in place. Currently hypertensive/when necessary labetalol and clonidine will be added. Noted liberalize SCI around 120 systolic blood pressure. Arousable on the ventilator and moves all 4 extremities spontaneously but not following commands. 07/14: Tmax 99.3. No significant bowel movement overnight. Currently hypotensive. Noted SCI around 120 systolic blood pressure recommended by vascular surgery. Arousable on ventilator on sedation vacation moves all 4 extremity spontaneously but not to commands. Subjective: 07/15: Afebrile. -2775 cc stool past 24 hours. Currently hypertensive. Bradycardic. Requiring antihypertensives. Plan for percutaneous cholecystostomy tube today. 07/16: Remains afebrile. CXR clearing. Renal injury without change, spontaneous urine acceptable. 07/17: No material change. Tolerates CPAP. 07/18: Family is talking with palliative Care service. 07/19: Will try CPAP with decreasing pressure support. DNR status clouds issue for extubation. 07/20: Failed SBT yesterday, could not tolerate lower pressure support. 07/21: Tolerates 5/5 SBT for several hours. Unresponsive, no eye opening today. No improvement in motor function. Extensive discussion with his brother Luis yesterday. Family is pretty consolidated in their wish to withdraw artificial support. Hopefully we can discuss options with all principals Friday. 07/22: Nods head accurately to questions today. Moves 4 limbs to command, left is minimal. 07/23: Patient nods head yes to wanting re-intubation and trach if necessary. He nods "yes" to wanting us to do everything to help him live. 07/24: Still wants trial extubation and reintubation if necessary. 07/25: Extubated 24 hours ago. Sleepy and accumulating secretions in upper airway. He will require a protected airway. His interaction with me over the past three days have all indicated that he wants us to perform a tracheostomy if he fails the extubation trial. He confirms his desire to live and remain full code status. Objective Vital Signs Date Time Temp Pulse Resp B/P Pulse Ox O2 Delivery O2 Flow Rate FiO2 07/25/16 08:09 95 Venturi Mask 35 07/25/16 06:00 80 07/25/16 04:00 98.2 28 190/82 07/24/16 13:15 6 Intake and Output 07/24/16 07/24/16 07/25/16 08:00 16:00 00:00 Intake Total 370 ml 322 ml 266 ml Output Total 850 ml 1330 ml 1045 ml Balance -480 ml -1008 ml -779 ml Result Diagram: 07/23/16 0310 07/25/16 0256 Imaging Last Impressions Chest X-Ray 07/15/16 0600 Signed Impressions: Service Date/Time: Friday, July 15, 2016 04:38 - CONCLUSION: Some worsening of the bilateral pulmonary infiltrates. Joe Appiah Jr., MD Abdomen X-Ray 07/15/16 0600 Signed Impressions: Service Date/Time: Friday, July 15, 2016 04:41 - CONCLUSION: No dilated bowel to suggest an obstruction. Joe Appiah Jr., MD Gall Bladder Ultrasound 07/14/16 0000 Signed Impressions: Service Date/Time: Thursday, July 14, 2016 11:36 - CONCLUSION: Abnormal gallbladder as described above. Cholecystitis would be consideration. The patient is only minimally tender around the gallbladder. Donis Hernandez MD FACR Abdomen/Pelvis CT 07/13/16 0000 Signed Impressions: Service Date/Time: Wednesday, July 13, 2016 17:29 - CONCLUSION: 1. Abnormal appearance of the gallbladder with wall thickening and possible pericholecystic fluid. No calcified stones. Recommend hepatobiliary tract scan to evaluate for acalculus cholecystitis. 2. Bilateral lower lung consolidation and bilateral pleural effusions. 3. Moderate amount of stool in the left colon. 4. Bilateral nonobstructing renal stones. Joe De Leon MD Neck Magnetic Resonance Angiography 07/11/16 0000 Signed Impressions: Service Date/Time: June 14:29 - CONCLUSION: 1. No evidence of carotid stenosis. 2. Short segment high-grade stenosis involving the mid right vertebral artery greater than 80 with a patent left vertebral artery Abhijeet Salinas MD Head Magnetic Resonance Angiography 07/11/16 0000 Signed Impressions: Service Date/Time: June 14:29 - CONCLUSION: 1. Evidence of atherosclerotic disease with focal distal left MCA branch stenosis and focal mid right NEIGHBORHOOD WORKER stenosis. 2. No proximal high grade stenosis or aneurysm. Bladimir Gasca MD Brain MRI 07/10/16 0000 Signed Impressions: Service Date/Time: Sunday, July 10, 2016 15:03 - CONCLUSION: 1. Small punctate infarcts involving the left cerebellar hemisphere and deep white matter bilaterally in this patient with a background of amyloid angiopathy. No acute hemorrhage is seen. Abhijeet Salinas MD Renal Ultrasound 07/08/16 0000 Signed Impressions: Service Date/Time: Friday, July 08, 2016 17:16 - CONCLUSION: 1. Resistive indices could not be obtained on the right side into the patient's body habitus and shadowing bowel gas. Left renal artery resistive indices are within normal limits. 2. No significant abdominal aortic aneurysm identified status post repair. 3. Probable 7 mm nonobstructing midpole right renal calculus. 4. Tiny left lower pole cyst measuring 1.5 cm. Hamlet Vinson MD Aorta CTA 07/04/16 0000 Signed Impressions: Service Date/Time: June 19:53 - CONCLUSION: 1. Extensive aortic dissection extending from the proximal transverse aorta just distal to the origin of the left subclavian artery. Dissection extends distally through both superficial femoral arteries. 2. Occlusion of the right renal artery with absent perfusion of the right kidney. Dissection of the left renal artery with absent perfusion of the anterior left kidney. 3. 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 4. Occlusion of left external iliac artery and right internal iliac artery. 5. ET tube in satisfactory position. Dependent consolidation in both lungs. Probable mild liver cirrhosis. No obstruction or free fluid. Russell catheter in decompressed bladder. See above discussion. Rodriguez Jeff MD Objective Remarks GENERAL: 60-year-old male. HEENT: Normocephalic. Atraumatic. Pupils 3 mm, reactive, NECK: Supple. Orotracheally intubated. CHEST: Clear to auscultation, no wheezes rales or rhonchi. More comfortable pattern. CARDIOVASCULAR: RRR. S1, S2 no S4. No m,r. No JVD ABDOMEN: Non-distended, soft. No rigidity. Active bowel sounds. MUSCULOSKELETAL: Distal pulses 2+. Left leg weak/numb. NEUROLOGICAL: Withdraws both upper and LEs to noxious stimuli. Lethargic. Protects airway Date of Insertion: Jul 11, 2016 Line: Central Venous Catheter Side: Left Location: Internal, Jugular A/P Assessment and Plan Neuro/Psych: Left cerebellar lacunar infarct Right vertebral/distal left MCA and mid right NEIG[employer]HO[employer] WORKER stenosis Severe Agitated Delirium Alcohol Withdrawal - up to 15 beers daily Risk for spinal cord hypoperfusion Alcohol abuse History of polysubstance abuse including crack cocaine Lumbar drain placement - removed 07/08 Insomnia On melatonin 5 mg at night as needed for insomnia Daily thiamine 100 mg daily for EtOH use MRI brain 07/10 revealed left cerebellar cystic diffusion region with small punctate areas in the suarez radiata likely embolic. Possible amyloid. MRA head/neck revealed right vertebral 80% short segment stenosis, distal left MCA and mid right NEIGHBORHOOD WORKER stenosis EEG 07/10 revealed no seizure activity Delirium/Withdraw regimen: --Tizanidine 2mg po BID for pain adjuvant and to help with delirium --Seroquel 25 mg twice a day for delirium/weaning to off --Haldol 5mg iv q4h prn for breakthrough agitation. --Valium 5mg po q8hr for etoh withdraw, start slow taper over through 07/15 --Ativan 1mg iv q15min prn for withdraw symptoms --continue to avoid Precedex for now given recent junctional bradycardia, NSTEMI , and need for continued spinal cord protection with goal systolic blood pressure of 140 to 160 recommended per vascular surgery. -- Okayed with Dr. Long for aspirin 324 mg daily Respiratory: Acute hypoxic and hypercarbic respiratory failure -- PRVC 18/550/0.8/5/40 Vent bundle Bronchodilator therapy every 6 hours and albuterol every 2 hours when needed Head of bed 30 07/12 SAT/SBT approximately 3 hours.. Yesterday minimal due to multiple scans performed Wean FiO2 for goal SPO2 greater than 92% - We will proceed directly to trach as per my previous interactions with patient. Cardiovascular: Postop day #18 T4 with left lower x-ray fasciotomy secondary to type B aortic dissection with renal/visceral and left lower extreme L perfusion Thoracic endovascular stent with left lower extremity fasciotomy/ compartments with [address] Long Acute type B dissection- secured Type II NSTEMI- Demand Ischemia- resolving Junction bradycardia- resolved. Lactic Acidosis- resolved. Goal SBP > 120 for spinal cord protection -- troponin downtrending. 6.81 -- elevated troponins likely combination of demand ischemia and poor renal clearance -- Cardiology: Dr. Mondragon following. plan for conservative management with myocardial perfusion scan when stable. -- 2d echo: EF 55%, no RWMA. 2-D echo 07/08 repeat EF 60-65%. Mild MR. At [facility] dilated. RENO 49 mmHg --Cardiac output currently is 3.8. SVV is 13 As needed labetalol/clonidine for systolic blood pressure greater than 160 My partner added hydralazine overnight. --Use norepinephrine to maintain systolic blood pressure greater than 120 Renal: Acute kidney injury Acute Tubular Necrosis Right and left nephrolithiasis Likely secondary to hypoperfusion of the kidney from dissection, ATN -- FENa 07/07 1.2% consistent with ATN. Urine eos negative. Urine urea ordered -- order renal ultrasound with doppler. Revealed patent renal arteries bilaterally. Tiny 7 mm right renal calculus and 1.5 cm left renal cyst. -- Strict I/Os Russell placement to be maintained --nephrology consult 07/08 appreciated. No indication for dialysis at this point Avoid nephrotoxins drugs BUN/creatinine. Stabilized FEN/GI: Colonic ileus Acute protein calorie malnutrition- mild Non-anion gap metabolic acidosis- resolved. Hyperphosphatemia Hyper-magnesium Hyponatremia History of peptic ulcer disease Hepatitis C -from IV drug use Elevated AST TF: Nepro at goal 40 cc an hour --nutrition consult. Daily BMP --Currently on PhosLo 2668 mg 3 times a day for hyperphosphatemia Protonix for GI prophylaxis. Stephie-Colace twice a day for bowel regimen. MiraLAX twice a day lactulose 4 times daily. KUB revealed 8 cm transverse colon ileus. Positive results with sepsis enema yesterday. CT abdomen/those revealed wall thickening or gallbladder. 2 right midpole no obstructing kidney stones, left circumflex continues on, to semi-bilateral pleural effusions and large amount stool left colon. Plan for percutaneous cholecystostomy tube for gallbladder. Not a surgical candidate at this time. Heme/ID: Leukocytosislikely reactive Acute Blood Loss Anemia Thrombocytopenia Daily CBC No infectious etiology suspected this time Daily coags --thrombocytopenia is likely multifactorial from liver disease, consumptive from critical illness and dissection. Blood cultures/sputum/urine ordered 07/11 no growth to date Endocrine: Hyperglycemia of critical illness -- SSI, medium scale, every 6 hours Prophylaxis: GI Prophylaxis Protonix 40 mg IV every 24 DVT Prophylaxis -- SCDs/heparin . Lines: 07/13 -radial arterial line --07/04-07/11 right IJ cortis -- Left IJ CVL 07/11 present - out I spoke at length with patient's brother Luis after the procedure and we established a plan to watch him closely while he's off all sedation and reassess his mental status. Overall impression: Lethargic now but alert last night. Renal function unchanged. Patient's intentions are clearly for full code. Cough not strong enough to clear secretions. We will proceed with tracheostomy as per the patient 's directions from last two days. Carlos Campos MD Jul 25, 2016 09:42
[2016-07-25] MEDS ORDERED: MIDAZOLAM HCL 5 MG/ML VIAL (1 ML) ONE ×3 (09:55→10:10)
[2016-07-25] MEDS ORDERED: ROCURONIUM INJ 50 MG/5 ML VIAL ONE (09:55)
--- NOTE | 2016-07-25 11:29 | HHI.HCPN ---
Received a phone call from patient's brother, Luis, at 8:21 this morning to request a family meeting. Advised family that I would contact them after assessing the patient and speaking to the medical team. . (Vikki Liu) . Chart reviewed. Cased discussed with palliative care ROAD MANAGER. Above ROAD MANAGER note reviewed and I concur. . (Obed De La Cruz MD) Vikki Liu Jul 25, 2016 11:29 Obed De La Cruz MD September 09, 2016 15:28
--- NOTE | 2016-07-25 11:30 | PD.PROCEDR ---
Procedure Note Procedure DX: Respiratory Failure OP: 1. Orotracheal Intubation (49480) 2. Flexible Bronchoscopy, Diagnostic Procedure: Bag mask ventilation and light suctioning for respiratory failure due to excessive secretions. Versed 5 mg and rocuronium 50 mg iv. Intubated orally with 8.0 tube. Position confirmed with CO2 detection, breath sounds, improved sats to 100%. Fentanyl 100 mics iv. Flexible bronchoscope delivered through elbow attached to indwelling endotracheal tube. Mechanical ventilation and all ICU monitoring in place. Tracheobronchial tree inspected, all segments left and right widely patent with moderate residual deep secretions. Suctioned clean. ET tube with bronchoscope withdrawn to 13 cm where surgeon could visualize light. Percutaneous tracheostomy dictated under separate note. Suctioning through new trach tube confirmed excellent position. Sats remained > 95% throughout procedure. Carlos Campos MD Jul 25, 2016 11:30
--- NOTE | 2016-07-25 11:37 | PD.PROCEDR ---
Procedure Note Procedure Procedure: Percutaneous tracheostomy with bronchoscopic guidance Operators: Dr. Jose E Hartman for percutaneous tracheostomy, Dr. Campos for bronchoscopy Informed consent obtained from patient per Dr. Campos over last 2 days Preoperative diagnosis: Acute respiratory failure on mechanical ventilation Postoperative diagnosis: Same Anesthesia used: Versed/ fentanyl IV per Dr. Campos, rocuronium for neuromuscular blockade. 1.5% lidocaine for local infiltration anesthesia Procedure: After ensuring adequate sedation/analgesia neuromuscular blockade, patient was positioned appropriately. After sterile prepping and draping, 1% lidocaine was used for local infiltration anesthesia. Dr. Campos proceeded with bronchoscopy and withdrawing ET tube. Tracheal position was visualized by transillumination. Introducer Angiocath was inserted into the trachea under bronchoscopic guidance and Angiocath was advanced into the trachea following which needle was removed. A guidewire was passed via Angiocath and was visualized passing down the trachea following which Angiocath was then removed. Punch dilator was used to dilate the tracheal ring following which tracheostomy dilator assembly was mounted over the guidewire and advanced to dilate the trachea with dilator being visualized via bronchoscopic guidance entering the trachea during dilation without injuring the posterior tracheal wall. Following this dilator assembly was removed and percutaneous tracheostomy mounted over dilator was advanced over the guidewire into the trachea under direct visualization following which guidewire/dilator were removed. Bronchoscope was inserted at this point by Dr. Campos via newly inserted tracheostomy and appropriate placement was confirmed by visualizing tracheal rings following which bronchoscope was withdrawn and inner cannula was placed via tracheostomy. After inflating cuff patient was connected to mechanical ventilation via tracheostomy. 4 interrupted sutures were used to secure tracheostomy to neck. Patient tolerated the procedure well with no immediate complications noted. Good hemostasis was achieved at the end of procedure. Postprocedure chest x-ray was ordered and was pending at the time of this dictation and will be reviewed when available. Jose E Hartman MD Jul 25, 2016 11:37
--- NOTE | 2016-07-25 11:37 | HHI.HCPN ---
Reason for visit a. To assist with evaluation and management of symptoms including: pain, dyspnea, encephalopathy b. To assist medical decision maker(s) with: better understanding of current medical conditions; weighing benefits/burdens of medical treatment options; making medical treatment decisions. . (Vikki Liu) Subjective/Interval History Patient seen and assessed in room 1304 s/p TEVAR and LLE fasciotomy. Patient was extubated yesterday, 07/25/16. Upon my arrival patient was having a tracheostomy placed for airway protection. Oxygen saturation 100% on mechanical vent. FiO2 80%; rate 16, tidal volume 500, PEEP 5. Minimal bleeding noted at tracheostomy site. Patient remains lethargic. Follow-up CXR that is postprocedure showing interval placement of bilateral opacity. Afebrile. No recent lab work available. All cultures were negative. Patient remains on IV antibiotics. Renal functioning remains relatively the same. Most recent lab work on 07/23/16 : BUN: 106, creatinine 4.42, GFR 14. Urine output stable on diuretics. Receiving supplemental potassium as needed. Nephrology continues to follow. . Family/friend interactions Received a phone call from patient's brother, Luis, at 8:21 this morning to request a family meeting. Advised family that I would contact them after assessing the patient and speaking to the medical team. Dr. Castillo spoke to patient's brother after tracheostomy placement. (Vikki Liu) Advance Directives Living Will: Never completed Health Care Surrogate: Never completed Durable Power of Finished Yarn Examiner: Never completed (Vikki Liu) Advance Directive Specifics Date completed: Advance directives never completed. . Health Care Surrogate(s): No written designation of health care surrogacy. . Documented care wishes: No written documentation of health care goals/preferences. . (Vikki Liu) Objective Vital Signs Date Time Temp Pulse Resp B/P Pulse Ox O2 Delivery O2 Flow Rate FiO2 07/25/16 11:04 100 80 07/25/16 08:09 95 Venturi Mask 35 07/25/16 06:00 80 07/25/16 04:00 76 07/25/16 04:00 98.2 76 28 190/82 100 07/25/16 02:00 98 07/25/16 00:00 98.0 90 32 172/99 98 07/25/16 00:00 90 07/24/16 22:00 72 07/24/16 20:00 64 07/24/16 20:00 98.5 64 21 141/65 99 07/24/16 19:51 99 Venturi Mask 40 07/24/16 19:00 100 Venturi Mask 40 07/24/16 18:00 66 07/24/16 16:00 66 07/24/16 16:00 98.5 66 24 119/59 99 07/24/16 14:00 66 07/24/16 13:15 100 Venturi Mask 6 50 07/24/16 13:15 95 Venturi Mask 6.00 50 07/24/16 12:00 94 07/24/16 12:00 35 07/24/16 12:00 98.8 94 31 148/66 96 Intake & Output 07/25/16 07/25/16 07:00 19:00 Intake Total 640 ml Output Total 1985 ml Balance -1345 ml IV Total 640 ml Output Urine Total 1900 ml Drainage Total 85 ml # Bowel Movements 0 . Physical Exam CONSTITUTIONAL/GENERAL: This is an adequately nourished patient s/p tracheostomy this morningon mechanical ventilator. No apparent distress TUBES/LINES/DRAINS: Tracheostomy, OGT, dignishield, Russell catheter, SCD 1, soft restraints 2, cholecystostomy, SKIN: Incisions on left lower extremity without S/S of infection Skin temperature appropriate. Not diaphoretic. EYES: Pupils equal and round, and reactive. ENT: Nose without bleeding or purulent drainage. NECK: Trachea midline. CARDIOVASCULAR: Regular rate and rhythm without murmurs, gallops, or rubs. No JVD. RESPIRATORY/CHEST: S/p tracheostomy this morning, on mechanical ventilator GASTROINTESTINAL: Abdomen distended, firm. GENITOURINARY: Without palpable bladder distension. Russell catheter in place. MUSCULOSKELETAL: No deformities. Edema in upper extremities bilaterally LYMPHATICS: Not examined. NEUROLOGICAL: Obtunded, opens eyes to deep tactile stimuli. Does not respond to questioning, does not follow commands. PSYCHIATRIC: Unable to assess due to patient's decreased level of responsiveness. . (Vikki Liu) Diagnostic Tests Laboratory Laboratory Tests Test 07/23/16 07/23/16 07/24/16 07/25/16 03:10 14:24 03:34 02:56 White Blood Count 14.6 TH/MM3 (4.0-11.0) Red Blood Count 2.62 MIL/MM3 (4.50-5.90) Hemoglobin 8.6 GM/DL (13.0-17.0) Hematocrit 25.0 % (39.0-51.0) Mean Corpuscular Volume 95.4 FL (80.0-100.0) Mean Corpuscular Hemoglobin 33.0 PG (27.0-34.0) Mean Corpuscular Hemoglobin 34.6 % Concent (32.0-36.0) Red Cell Distribution Width 14.7 % (11.6-17.2) Platelet Count 385 TH/MM3 (150-450) Mean Platelet Volume 7.7 FL (7.0-11.0) Sodium Level 142 MEQ/L 144 MEQ/L 142 MEQ/L (136-145) (136-145) (136-145) Potassium Level 2.8 MEQ/L 3.4 MEQ/L 3.0 MEQ/L 3.4 MEQ/L (3.5-5.1) (3.5-5.1) (3.5-5.1) (3.5-5.1) Chloride Level 105 MEQ/L 108 MEQ/L 107 MEQ/L (98-107) (98-107) (98-107) Carbon Dioxide Level 22.4 MEQ/L 22.7 MEQ/L 22.4 MEQ/L (21.0-32.0) (21.0-32.0) (21.0-32.0) Anion Gap 15 MEQ/L (5-15) 13 MEQ/L (5-15) 13 MEQ/L (5-15) Blood Urea Nitrogen 106 MG/DL 107 MG/DL 106 MG/DL (7-18) (7-18) (7-18) Creatinine 4.42 MG/DL 4.30 MG/DL 4.27 MG/DL (0.60-1.30) (0.60-1.30) (0.60-1.30) Estimat Glomerular Filtration 14 ML/MIN (>89) 14 ML/MIN (>89) 14 ML/MIN (>89) Rate Random Glucose 141 MG/DL 133 MG/DL 111 MG/DL (74-106) (74-106) (74-106) Calcium Level 9.3 MG/DL 8.9 MG/DL 9.1 MG/DL (8.5-10.1) (8.5-10.1) (8.5-10.1) Phosphorus Level 4.2 MG/DL (2.5-4.9) Albumin 1.7 GM/DL (3.4-5.0) . (Vikki Liu) Result Diagram: 07/23/16 0310 07/25/16 0256 Imaging Last 72 hours Impressions Chest X-Ray 07/25/16 0000 Signed Impressions: Service Date/Time: July 12:04 - CONCLUSION: 1. Interval placement of tracheostomy tube and removal of endotracheal tube. 2. Interval improvement in bilateral opacity. Ge Wood MD . Procedures 07/04/16: Right radial arterial line placement 07/04/16: Lumbar drain placement 07/04/16: Right IJ cortis placement 07/04/16: TEVAR and LLE fasciotomy. 07/06/16: Extubation 07/07/16: Reintubation 07/08/16: Platelet transfusion 07/08/16: Lumbar drain removed 07/11/16: Right IJ cortis removed 07/11/16: Left IJ CVL placement 07/24/16: Extubated 07/25/16: Tracheostomy and bronchoscopy . 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 (2) Delirium (3) Respiratory failure (4) NSTEMI (non-ST elevated myocardial infarction) (5) Stroke Comment: MRI shows "small punctate infarcts involving the left cerebellar hemisphere and deep white matter bilaterally " in a background of amyloid angiopathy. . (6) Acute kidney insufficiency Comment: Probably a result of ischemic injury from dissection. . (7) HTN (hypertension) (8) Hepatitis C (9) Elevated troponin (10) Cholecystitis Comment: s/p cholecystostomy tube placement. . (11) COPD (chronic obstructive pulmonary disease) Symptom Scale: (1) Pain 0-10 Scale: Unable to quantify Comment: Possible causes of pain include postop surgical pain, circulation, edema, ETT, OG, invasive lines, immobility, bedbound status etc. (2) Dyspnea 0-10 Scale: Unable to quantify Comment: Patient was extubated yesterday, 07/25/16. Upon my arrival patient was having a tracheostomy placed for airway protection. Oxygen saturation 100% on mechanical vent. FiO2 80%; rate 16, tidal volume 500, PEEP 5. Minimal bleeding noted at tracheostomy site. Patient remains lethargic. Follow-up CXR that is postprocedure showing interval placement of bilateral opacity. . Pertinent Non-Medical Issues Psychosocial: Patient was born in [place] and moved to [place] as young adult. Patient has a long history of polysubstance abuse which includes EtOH consumption and crack cocaine. The patient continues to drink 8-12 beers daily. The patient has never been and has no children. His mother and 2 of his siblings live locally and a third brother lives in [place]. Patient's mother states patient has been diagnosed with oppositional defiant disorder and is a history of medical noncompliance. Prior to his hospitalization, the patient was living with an elderly gentleman and they were helping each other. 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 The patient received disability approximately 1 week prior to this hospitalization. Spiritual: [employer] Legal: Per [place] statutes, health care proxy decision making would fall to the patient's mother. Family members state while in the ED at [facility] patient identified his brother (Luis) as his medical decision maker, apparently the appropriate documentation and was not completed. Family members are in agreement and working together on patient's medical decisions. However the patient's mother and 2 other siblings (Olga and Jean Carlos) has opted out of decision making role, deferring to brother Luis. Ethical issues impacting care: No known ethical issues impacting care at this time . Important Contacts Nathalia Izquierdo, mother: [phone] Brother (Luis); [phone] [id number] (Chanda); [phone] Sister (Olga); [phone] Brother (Jean Carlos): [phone] . Prognosis Patient is a 60 year old man who was admitted with a type B aortic dissection. He is currently critically ill status post with TAVER and LLE fasciotomy. His past medical history is significant for polysubstance abuse (EtOH/crack cocaine) , HTN, CAD, COPD, hepatitis C/cirrhosis as well as medical noncompliance The patient currently remains orotracheally intubated and sedated. BUBBA - patient likely sustained severe ischemic injuries to both kidneys secondary to dissection involving renal arteries. It is certainly possible that this patient will be successfully extubated and upcoming days, eventually being stable enough to be discharged to SNF. However given the patient's past medical history, noncompliance, and this recent acute event, the patient has a strong probability into new decline and/or complications. . Code Status: No Code (patient is currently intubated. CODE STATUS changed to NO CODEDNR. If/when the patient is extubated, whether intentionally or unintentionally, the family requested the patient not be reintubated.) Plan * FULL CODE * Decision-making: Per [place] statutes, health care proxy decision making would fall to the patient's mother. Family members state while in the ED at [facility] patient identified his brother (Luis) as his medical decision maker, apparently the appropriate documentation and was not completed. Family members are in agreement and working together on patient's medical decisions. However the patient's mother and 2 other siblings (Olga and Jean Carlos) has opted out of decision making role, therefore decision-making multiple to the patient' s brother Luis. * Goals: Aggressive at this time per patient. * Patient showing progressive neurological improvement. Nodding and shaking his head in response to yes/no questions, reproducible. Following commands. Per Dr. Castillo, patient indicated aggressive goals by nodding his head "yes" to wanting everything done to help him. Patient nodded yes to wanting recent intubation and tracheostomy if necessary. Later in the day patient again indicated aggressive goals to palliative care nodding his head yes when asked about CPR. CODE STATUS has been changed to FULL CODE. Patient's family was notified by palliative care. * Symptom managementpain: Possible causes of pain include postop surgical pain , circulation, edema, tracheostomy ,OG, invasive lines, immobility, bedbound status etc. PRN fentanyl is available for breakthrough pain, apparently used Palliative care will continue to monitor PRN were immense and make recommendations as indicated. * Managementdyspnea: Patient was extubated yesterday, 07/25/16. Upon my arrival patient was having a tracheostomy placed for airway protection. Oxygen saturation 100% on mechanical vent. FiO2 80%; rate 16, tidal volume 500, PEEP 5. Minimal bleeding noted at tracheostomy site. Patient remains lethargic. Follow-up CXR that is postprocedure showing interval placement of bilateral opacity. * Discussed with Dr. Castillo, Dr. De La Cruz, patient nurse (Vivi) and refinery operator crude unit. * Received a phone call from patient's brother, Luis, at 8:21 this morning to request a family meeting. Advised family that I would contact them after assessing the patient and speaking to the medical team. Dr. Castillo spoke to patient's brother after tracheostomy placement and established a plan to monitor the patient closely in the upcoming days while he is off sedation to reassess his mental status/capacity. * Palliative care will continue to follow this patient throughout his hospitalization to establish trust, assist with symptom management and clarification of medical treatment goals. . (Vikki Liu) Attestation To help prompt me to consider important information that might be impacting today's encounter and assessment, information from prior notes written by myself or my colleagues may have been "brought forward" into today's note. My signature on this note, however, is an attestation that I personally performed the exam, history, and/or decision-making noted today, and, unless otherwise indicated, the interactions with patient, family, and staff as well as the review of records all occurred today. I also attest that the listed assessment and stated plan reflect my best clinical judgment today based on the combination of historical information, prior notes, and today's exam/ interactions. When time spent is documented, it refers only to time spent today by the signer, or if indicated, combined time spent today by collaborating physician/nurse practitioner. . (Vikki Liu) Collaborating MD Comments . Chart reviewed. Cased discussed with palliative care PLASTIC TOP ASSEMBLER. Above PLASTIC TOP ASSEMBLER note reviewed and I concur. . (Obed De La Cruz MD) Vikki Liu Jul 25, 2016 11:37 Obed De La Cruz MD September 09, 2016 15:13
--- NOTE | 2016-07-25 12:38 | RADRPT ---
EXAM DATE/TIME: 07/25/2016 12:04 [facility] COMPARISON: CHEST SINGLE AP, July 16, 2016, 3:25. INDICATIONS : Post tracheostomy MEDICAL HISTORY : Hepatitis C. Cardiovascular disease. Hypertension. SURGICAL HISTORY : Abdominal aortic aneurysm repair. ENCOUNTER: Subsequent ACUITY: 2 weeks PAIN SCORE: Non-responsive. LOCATION: chest FINDINGS: A single AP portable erect view of the chest was obtained and demonstrates interval placement of trac heostomy tube and removal of the endotracheal tube. The nasogastric tube remains in place. The patien t has an aortic stent graft in place. There has been and interval improvement in the bilateral hazy o pacity with mild residual at the lung bases. The left costophrenic angle remains blunted. The heart s ize is at the upper limits of normal. CONCLUSION: 1. Interval placement of tracheostomy tube and removal of endotracheal tube. 2. Interval improvement in bilateral opacity. Ge Wood MD on July 25, 2016 at 12:35 Board Certified Radiologist. This report was verified electronically.
--- NOTE | 2016-07-25 12:42 | PD.VS.PN ---
Subjective POD #: 21 Procedure(s): TEVAR, L LE fasciotomies for acute TBAD with visceral/renal/LLE malperfusion Subjective/Hospital Course Continues to make progress. Just was trach'ed today. Objective Neuro: Somnolent now, appropriate. MENSAH. Pulmonary: trach in place. Vent wean. Good sats. Cardiac: reg rate. No issues FEN/GI: Perc pita tube in place, draining. Nazia TF. : cr creeping down slowly. Good UOP. 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 I Hamlet Long MD FACS programmer analyst consultant [facility] - Heart [facility] Vascular Surgery at [facility] Hamlet Long MD Jul 25, 2016 12:42
[2016-07-25] MEDS: DOBUTamine 250 MG/D5W 250 ML PREMIX DRIP IV SCH (13:28)
[2016-07-25 17:11] LABS: BICARBONATE 25.7 MEQ/L (21.0-32.0); MAGNESIUM 2.6 MG/DL (1.5-2.5); POTASSIUM 3.6 MEQ/L (3.5-5.1)
[2016-07-25] MEDS: SODIUM CHLOR 0.9% 1000 ML INJ 1,000 ML IV SCH (18:00)
[2016-07-25] MEDS: MELATONIN 5 MG TAB PO SCH (20:47)
[2016-07-26] VITALS (16 sets, daily range): BP systolic 148–176; BP diastolic 66–79; PULSE 56–92; RESP 14–20; TEMP 98.7–99.4; O2SAT 98–100
[2016-07-26] MEDS: DOBUTamine 250 MG/D5W 250 ML PREMIX DRIP IV SCH ×2 (02:40→21:32)
[2016-07-26 04:57] LABS: BICARBONATE 25.4 MEQ/L (21.0-32.0); POTASSIUM 3.5 MEQ/L (3.5-5.1)
[2016-07-26] MEDS: CHLORHEXIDINE GLUCONATE 2 % 1 PACK (2 CLOTHS) TOP SCH (05:18)
[2016-07-26] MEDS: INSULIN NovoLIN REGULAR SUPPLEMENTAL SCALE SQ SCH ×4 (06:00→18:00)
[2016-07-26] MEDS: ARTIFICIAL TEARS OPTH SOLN 15 ML BTL EACH EYE SCH ×3 (06:18→22:15)
[2016-07-26] MEDS: BUMETANIDE INJ 1 MG/4 ML VIAL IV PUSH SCH ×3 (06:18→21:47)
[2016-07-26] MEDS: METOCLOPRAMIDE HCL 10 MG/2 ML VIAL IV PUSH SCH ×3 (06:18→21:48)
[2016-07-26] MEDS: PIPERACIL-TAZO 2.25 GM PREMIX 50 ML IV SCH ×2 (06:18→17:42)
[2016-07-26] MEDS: hydrALAZINE HCL 20 MG/ML VIAL IV PRN (06:35)
[2016-07-26] MEDS: CHLORHEXIDINE 0.12% (ORAL KIT) 15 ML CUP MT SCH ×2 (08:00→20:51)
[2016-07-26] MEDS: POLYETHYLENE GLYCOL 17 GM PKG OG-TUBE SCH ×2 (08:06→21:00)
[2016-07-26] MEDS: LACTULOSE SYRUP 20 GM/30 ML CUP PO SCH ×4 (08:06→21:00)
[2016-07-26] MEDS: DOCUSATE SODIUM 50 MG/SENNA 8.6 MG TAB PO SCH ×2 (08:07→21:48)
[2016-07-26] MEDS: ASPIRIN 81 MG CHEW TAB CHEW SCH (09:00)
--- NOTE | 2016-07-26 09:15 | HHI.CCPN ---
Subjective Remarks/Hospital Course Hospital Course: This is a 60-year-old male who is transferred emergently from outside hospital with per report and acute type B dissection. Apparently the patient told his family member today that he had searing back pain and was taken to the emergency department. A CT of the chest at that time showed a type B dissection. The patient was intubated the outside facility and transferred to [facility] for emergent evaluation management. Unfortunately, the patient is unable to provide any additional history at this time. I was at bedside and the patient arrived to the surgical intensive care unit. Dr. Long and I both evaluated the patient and when he arrived he was in a junctional bradycardia with heart rate in the 40s. He had obvious ST depressions in lead II on telemetry. Our initial concern was that we have extended the dissection into the type A dissection. We also did not have any CT of the abdomen and pelvis. On her physical exam, the patient had a cold left foot without pulses. I emergently placed a right radial arterial line, please see separate procedure note for details. We then went emergently to the CT scanner for repeat CT aortogram of the chest abdomen and pelvis to investigate the extent to which the dissection has extended. The CT aortogram demonstrated that this was still a type B dissection with the celiac artery being significantly compressed and possibly comprising flow from the dissection flap. The right kidney appears to be perfused off the false lumen and not the true lumen, and there is no contrast going down the left femoral artery. Patient was then brought back to the intensive care unit. His blood pressure is controlled on nicardipine infusion for goal systolic blood pressure less than 110. A 12-lead EKG at that time was done which demonstrated significant ST depressions in the inferior leads as well as the far lateral leads consistent with subendocardial ischemia. At the request of Dr. Long in anticipation of going emergently to the operative theater, I placed a lumbar drain for spinal protection, please see separate procedure note for details. At that point the patient was taken emergently to the operating room. Critical care medicine is been consulted to evaluate and manage the patient's type B dissection, hemodynamic's, acute hypoxic respiratory failure. 07/05: taken to OR for TEVAR overnight. lactate cleared overnight. uop adequate. Cr elevated to 1.8 this AM. He is on Coreg 50 mg by mouth 07/06: oliguric overnight. Cr rising. however, lactate cleared. other markers of end-organ perfusion better. likely ATN from time of dissection. awake following commands. moving bilateral lower extremities. clear CSF in lumbar drain. on intermittent norepinephrine to maintain spinal perfusion. 07/07: extubated yesterday, followed commands, good pulmonary mechanics. However , after extubation, became acutely delirious- probable combination of etoh withdraw and icu delirium, some pain. mental status waxed and waned throughout the day and ultimately reintubated overnight for worsening waning mental status and hypoxia. post-extubation it has been documented that he continues to move his bilateral lower extremities to painful stimuli and spontaneously. does not follow commands this morning. troponins downtrending. cardiology evaluated the patient yesterday, formal note pending, but per my conversation, plan was for ongoing conservative management as we are doing, and plan for nuc med stress test when stable. 07/08: still moving bilateral LEs spontaneously and w/d to pain. remains intubated with persistent agitation. hypoxia improving. platelets continue to fall, likely a combination of consumption, BUBBA, liver disease. will give unit of platelets prior to d/c lumbar drain. 07/09: Troponin spill resolving without evidence of ongoing injury. Major obstacle is agitation related to ETOH withdrawal followed by necessary sedation. Continue to work toward vent weaning. 07/10: Afebrile. Not following commands. Continues to be agitated for reasons above. Tolerating tube feeding at goal rate. Creatinine hopefully has plateaued. 07/11: CURRENT TEMPERATURE 100.2. MRI brain yesterday revealed left cellular restricted diffusion area likely acute infarct with small punctate areas within the coronal radiata possibly embolic event. Patient is arousable and will move all 4 extremities but not following commands. Left foot remains cool. Tolerating tube feeding. No bowel movement times 4 days. 07/12: Tmax 99.7. Currently 99. Noted right vertebral/distal left MCA/mid right GASKET INSPECTOR stenosis on imaging yesterday. Central line exchange from right to left side due to bleeding. No bowel movement for tolerating tube feedings with very low residuals. Still wean sedation. 07/13: Currently afebrile. Patient with soap side enema yesterday with's positive BM 3 overnight.. Go containment device currently in place. Currently hypertensive/when necessary labetalol and clonidine will be added. Noted liberalize SCI around 120 systolic blood pressure. Arousable on the ventilator and moves all 4 extremities spontaneously but not following commands. 07/14: Tmax 99.3. No significant bowel movement overnight. Currently hypotensive. Noted SCI around 120 systolic blood pressure recommended by vascular surgery. Arousable on ventilator on sedation vacation moves all 4 extremity spontaneously but not to commands. Subjective: 07/15: Afebrile. -2775 cc stool past 24 hours. Currently hypertensive. Bradycardic. Requiring antihypertensives. Plan for percutaneous cholecystostomy tube today. 07/16: Remains afebrile. CXR clearing. Renal injury without change, spontaneous urine acceptable. 07/17: No material change. Tolerates CPAP. 07/18: Family is talking with palliative Care service. 07/19: Will try CPAP with decreasing pressure support. DNR status clouds issue for extubation. 07/20: Failed SBT yesterday, could not tolerate lower pressure support. 07/21: Tolerates 5/5 SBT for several hours. Unresponsive, no eye opening today. No improvement in motor function. Extensive discussion with his brother Luis yesterday. Family is pretty consolidated in their wish to withdraw artificial support. Hopefully we can discuss options with all principals Friday. 07/22: Nods head accurately to questions today. Moves 4 limbs to command, left is minimal. 07/23: Patient nods head yes to wanting re-intubation and trach if necessary. He nods "yes" to wanting us to do everything to help him live. 07/24: Still wants trial extubation and reintubation if necessary. 07/25: Extubated 24 hours ago. Sleepy and accumulating secretions in upper airway. He will require a protected airway. His interaction with me over the past three days have all indicated that he wants us to perform a tracheostomy if he fails the extubation trial. He confirms his desire to live and remain full code status. 07/26: Stronger, more alert on trach ventilation. Dobbhoff or PEG prison? Objective Vital Signs Date Time Temp Pulse Resp B/P Pulse Ox O2 Delivery O2 Flow Rate FiO2 07/26/16 07:42 100 50 07/26/16 06:00 56 07/26/16 04:00 98.7 14 171/73 07/25/16 19:00 Mechanical Ventilator 07/24/16 13:15 6 Intake and Output 07/25/16 07/25/16 07/26/16 08:00 16:00 00:00 Intake Total 374 ml 80 ml 122 ml Output Total 940 ml 960 ml 1305 ml Balance -566 ml -880 ml -1183 ml Result Diagram: 07/23/16 0310 07/26/16 0347 Imaging Last Impressions Chest X-Ray 07/15/16 0600 Signed Impressions: Service Date/Time: Friday, July 15, 2016 04:38 - CONCLUSION: Some worsening of the bilateral pulmonary infiltrates. Joe Appiah Jr., MD Abdomen X-Ray 07/15/16599 Signed Impressions: Service Date/Time: Friday, July 15, 2016 04:41 - CONCLUSION: No dilated bowel to suggest an obstruction. Joe Appiah Jr., MD Gall Bladder Ultrasound 07/14/16 0000 Signed Impressions: Service Date/Time: Thursday, July 14, 2016 11:36 - CONCLUSION: Abnormal gallbladder as described above. Cholecystitis would be consideration. The patient is only minimally tender around the gallbladder. Donis Hernandez MD FACR Abdomen/Pelvis CT 07/13/16 0000 Signed Impressions: Service Date/Time: Wednesday, July 13, 2016 17:29 - CONCLUSION: 1. Abnormal appearance of the gallbladder with wall thickening and possible pericholecystic fluid. No calcified stones. Recommend hepatobiliary tract scan to evaluate for acalculus cholecystitis. 2. Bilateral lower lung consolidation and bilateral pleural effusions. 3. Moderate amount of stool in the left colon. 4. Bilateral nonobstructing renal stones. Joe De Leon MD Neck Magnetic Resonance Angiography 07/11/16 0000 Signed Impressions: Service Date/Time: June 14:29 - CONCLUSION: 1. No evidence of carotid stenosis. 2. Short segment high-grade stenosis involving the mid right vertebral artery greater than 80 with a patent left vertebral artery Abhiejet Salinas MD Head Magnetic Resonance Angiography 07/11/16 0000 Signed Impressions: Service Date/Time: June 14:29 - CONCLUSION: 1. Evidence of atherosclerotic disease with focal distal left MCA branch stenosis and focal mid right GASKET INSPECTOR stenosis. 2. No proximal high grade stenosis or aneurysm. Bladimir Gasca MD Brain MRI 07/10/16 0000 Signed Impressions: Service Date/Time: Sunday, July 10, 2016 15:03 - CONCLUSION: 1. Small punctate infarcts involving the left cerebellar hemisphere and deep white matter bilaterally in this patient with a background of amyloid angiopathy. No acute hemorrhage is seen. Abhijeet Salinas MD Renal Ultrasound 07/08/16 0000 Signed Impressions: Service Date/Time: Friday, July 08, 2016 17:16 - CONCLUSION: 1. Resistive indices could not be obtained on the right side into the patient's body habitus and shadowing bowel gas. Left renal artery resistive indices are within normal limits. 2. No significant abdominal aortic aneurysm identified status post repair. 3. Probable 7 mm nonobstructing midpole right renal calculus. 4. Tiny left lower pole cyst measuring 1.5 cm. Hamlet Vinson MD Aorta CTA 07/04/16 0000 Signed Impressions: Service Date/Time: June 19:53 - CONCLUSION: 1. Extensive aortic dissection extending from the proximal transverse aorta just distal to the origin of the left subclavian artery. Dissection extends distally through both superficial femoral arteries. 2. Occlusion of the right renal artery with absent perfusion of the right kidney. Dissection of the left renal artery with absent perfusion of the anterior left kidney. 3. 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 4. Occlusion of left external iliac artery and right internal iliac artery. 5. ET tube in satisfactory position. Dependent consolidation in both lungs. Probable mild liver cirrhosis. No obstruction or free fluid. Russell catheter in decompressed bladder. See above discussion. Rodriguez Jeff MD Objective Remarks GENERAL: 60-year-old male. HEENT: Normocephalic. Atraumatic. Pupils 3 mm, reactive, NECK: Supple. Orotracheally intubated. CHEST: Clear to auscultation, no wheezes rales or rhonchi. More comfortable pattern. CARDIOVASCULAR: RRR. S1, S2 no S4. No m,r. No JVD ABDOMEN: Non-distended, soft. No rigidity. Active bowel sounds. MUSCULOSKELETAL: Distal pulses 2+. Left leg weak/numb. NEUROLOGICAL: Withdraws both upper and LEs to noxious stimuli. Tracks with eyes , node head. Protects airway Date of Insertion: Jul 11, 2016 Line: Central Venous Catheter Side: Left Location: Internal, Jugular A/P Assessment and Plan Neuro/Psych: Left cerebellar lacunar infarct Right vertebral/distal left MCA and mid right GASKET INSPECTOR stenosis Severe Agitated Delirium Alcohol Withdrawal - up to 15 beers daily Risk for spinal cord hypoperfusion Alcohol abuse History of polysubstance abuse including crack cocaine Lumbar drain placement - removed 07/08 Insomnia On melatonin 5 mg at night as needed for insomnia Daily thiamine 100 mg daily for EtOH use MRI brain 07/10 revealed left cerebellar cystic diffusion region with small punctate areas in the suarez radiata likely embolic. Possible amyloid. MRA head/neck revealed right vertebral 80% short segment stenosis, distal left MCA and mid right GASKET INSPECTOR stenosis EEG 07/10 revealed no seizure activity Delirium/Withdraw regimen: --Tizanidine 2mg po BID for pain adjuvant and to help with delirium --Seroquel 25 mg twice a day for delirium/weaning to off --Haldol 5mg iv q4h prn for breakthrough agitation. --Valium 5mg po q8hr for etoh withdraw, start slow taper over through 07/15 --Ativan 1mg iv q15min prn for withdraw symptoms --continue to avoid Precedex for now given recent junctional bradycardia, NSTEMI , and need for continued spinal cord protection with goal systolic blood pressure of 140 to 160 recommended per vascular surgery. -- Okayed with Dr. Long for aspirin 324 mg daily Respiratory: Acute hypoxic and hypercarbic respiratory failure -- PRVC 18/550/0.8/5/40 Vent bundle Bronchodilator therapy every 6 hours and albuterol every 2 hours when needed Head of bed 30 07/12 SAT/SBT approximately 3 hours.. Yesterday minimal due to multiple scans performed Wean FiO2 for goal SPO2 greater than 92% - We will proceed directly to trach as per my previous interactions with patient. -Trach 07/25. Cardiovascular: Postop T4 with left lower x-ray fasciotomy secondary to type B aortic dissection with renal/visceral and left lower extreme L perfusion Thoracic endovascular stent with left lower extremity fasciotomy/ compartments with [address] Long Acute type B dissection- secured Type II NSTEMI- Demand Ischemia- resolving Junction bradycardia- resolved. Lactic Acidosis- resolved. Goal SBP > 120 for spinal cord protection -- troponin downtrending. 6.81 -- elevated troponins likely combination of demand ischemia and poor renal clearance -- Cardiology: Dr. Mondragon following. plan for conservative management with myocardial perfusion scan when stable. -- 2d echo: EF 55%, no RWMA. 2-D echo 07/08 repeat EF 60-65%. Mild MR. At [facility] dilated. RENO 49 mmHg --Cardiac output currently is 3.8. SVV is 13 As needed labetalol/clonidine for systolic blood pressure greater than 160 My partner added hydralazine overnight. --Use norepinephrine to maintain systolic blood pressure greater than 120 Renal: Acute kidney injury Acute Tubular Necrosis Right and left nephrolithiasis Likely secondary to hypoperfusion of the kidney from dissection, ATN -- FENa 07/07 1.2% consistent with ATN. Urine eos negative. Urine urea ordered -- order renal ultrasound with doppler. Revealed patent renal arteries bilaterally. Tiny 7 mm right renal calculus and 1.5 cm left renal cyst. -- Strict I/Os Russell placement to be maintained --nephrology consult 07/08 appreciated. No indication for dialysis at this point Avoid nephrotoxins drugs BUN/creatinine. Stabilized FEN/GI: Colonic ileus Acute protein calorie malnutrition- mild Non-anion gap metabolic acidosis- resolved. Hyperphosphatemia Hyper-magnesium Hyponatremia History of peptic ulcer disease Hepatitis C -from IV drug use Elevated AST TF: Nepro at goal 40 cc an hour --nutrition consult. Daily BMP --Currently on PhosLo 2668 mg 3 times a day for hyperphosphatemia Protonix for GI prophylaxis. Stephie-Colace twice a day for bowel regimen. MiraLAX twice a day lactulose 4 times daily. KUB revealed 8 cm transverse colon ileus. Positive results with sepsis enema yesterday. CT abdomen/those revealed wall thickening or gallbladder. 2 right midpole no obstructing kidney stones, left circumflex continues on, to semi-bilateral pleural effusions and large amount stool left colon. Plan for percutaneous cholecystostomy tube for gallbladder. Not a surgical candidate at this time. Heme/ID: Leukocytosislikely reactive Acute Blood Loss Anemia Thrombocytopenia Daily CBC No infectious etiology suspected this time Daily coags --thrombocytopenia is likely multifactorial from liver disease, consumptive from critical illness and dissection. Blood cultures/sputum/urine ordered 07/11 no growth to date Endocrine: Hyperglycemia of critical illness -- SSI, medium scale, every 6 hours Prophylaxis: GI Prophylaxis Protonix 40 mg IV every 24 DVT Prophylaxis -- SCDs/heparin . Lines: 07/13 -radial arterial line --07/04-07/11 right IJ cortis -- Left IJ CVL 07/11 present - out I spoke at length with patient's brother Luis after the procedure and we established a plan to watch him closely while he's off all sedation and reassess his mental status. Overall impression: Alert, responds. Renal function slowly improving. Carlos Campos MD Jul 26, 2016 09:15
[2016-07-26] MEDS: CALCIUM ACETATE 667 MG CAP PO SCH ×3 (09:55→17:41)
[2016-07-26] MEDS: THIAMINE HCL 100 MG TAB PO SCH (09:55)
[2016-07-26] MEDS: QUEtiapine FUMARATE 25 MG TAB PO SCH ×2 (09:56→21:48)
[2016-07-26] MEDS: MULTIVITAMIN TAB PO SCH (09:56)
[2016-07-26] MEDS: HEPARIN SODIUM - SQ 10,000 UNITS/ML VIAL SQ SCH ×2 (09:58→21:46)
[2016-07-26] MEDS: PANTOPRAZOLE SODIUM 40 MG VIAL IV SCH (10:01)
[2016-07-26] MEDS: SODIUM CHLORIDE 0.9% FLUSH 10 ML FLUSH IVF SCH (10:01)
--- NOTE | 2016-07-26 16:06 | PD.VS.PN ---
Subjective POD #: [id number] Procedure(s): TEVAR, L LE fasciotomies for acute TBAD with visceral/renal/LLE malperfusion Subjective/Hospital Course Pt seems to have mild back pain, aching. Neuro brighter. Still good UOP, weaning vent. Objective Neuro: MENSAH, answers questions. Pulmonary: Trach in place, weaning vent. Cardiac: reg rate. FEN/GI: Nazia TF. Shantelle tube draining. Abdomen nontender. : cr 4.3, slowly declining. BUN 111. Vascular: Warm, perfused LE. Laboratory Laboratory Tests Test 07/25/16 07/26/16 16:32 03:47 Sodium Level 145 147 Potassium Level 3.6 3.5 Chloride Level 108 110 Carbon Dioxide Level 25.7 25.4 Anion Gap 11 12 Blood Urea Nitrogen 112 111 Creatinine 4.48 4.34 Estimat Glomerular Filtration 13 14 Rate Random Glucose 121 121 Calcium Level 9.0 8.7 Phosphorus Level 6.3 Magnesium Level 2.6 Imaging Last 48 hours Impressions Chest X-Ray 07/25/16 0000 Signed Impressions: Service Date/Time: July 12:04 - CONCLUSION: 1. Interval placement of tracheostomy tube and removal of endotracheal tube. 2. Interval improvement in bilateral opacity. Ge Wood MD Assessment and Plan Assessment: (1) Dissecting aneurysm of thoracic aorta, Saran type B Status: Acute Plan Now trach'ed - can wean sedation aggressively and continue vent wean Continue diureses Full code Physical therapy. Hamlet Long MD FACS pit steward [facility] Hamlet Long MD Jul 26, 2016 16:06
--- NOTE | 2016-07-26 16:35 | HHI.NPPN ---
Subjective History of Present Illness This patient is a 60-year-old male apparently with a history of previous alcohol and crack usage also has a history of hepatitis C, coronary disease and hypertension as well as medical noncompliance. Patient was admitted with a type B aortic dissection. CTA thoracic aorta and abdominal aorta performed July 04, 2016 revealed occluded right renal artery as well as perfusion only to the left posterior aspect of the left kidney. Patient status post emergent TAVA, left lower extremity fasciectomy mention of previous nonperfusion to that extremity. Patient's creatinine level was within normal range from previous records prior to this admission however patient had evidence of renal sufficiency on presentation and his creatinine level has continued to rise to a level of 4.75 Date of Consultation with marginal urine output. Interval History Patient with tracheostomy. Awake but not responding to simple commands. Review of Systems General General Remarks Unobtainable because of clinical status. Objective Data Data 07/25/16 07/26/16 19:00 07:00 Intake Total 80 ml 214 ml Output Total 960 ml 2045 ml Balance -880 ml -1831 ml IV Total 80 ml 214 ml Output Urine Total 800 ml 1850 ml Gastric Drainage Total 100 ml 100 ml Drainage Total 60 ml 95 ml # Bowel Movements 1 Vital Signs Date Time Temp Pulse Resp B/P Pulse Ox O2 Delivery O2 Flow Rate FiO2 07/26/16 14:00 58 07/26/16 12:41 98 50 07/26/16 12:00 99.4 79 16 148/66 100 07/26/16 12:00 77 07/26/16 12:00 70 07/26/16 10:00 74 07/26/16 08:00 77 07/26/16 08:00 70 07/26/16 08:00 99.0 82 18 152/69 100 07/26/16 07:42 100 50 07/26/16 07:00 99 Mechanical Ventilator 70 07/26/16 06:00 56 07/26/16 04:00 98.7 58 14 171/73 100 07/26/16 04:00 58 07/26/16 04:00 70 07/26/16 03:54 99 50 07/26/16 02:39 15 07/26/16 02:00 60 07/26/16 00:03 99 50 07/26/16 00:00 78 07/26/16 00:00 99.0 78 18 157/68 99 4/14/17 00:00 70 07/25/16 22:00 70 07/25/16 20:30 100 50 07/25/16 20:00 98.9 74 21 148/69 100 07/25/16 20:00 74 07/25/16 20:00 70 07/25/16 19:00 99 Mechanical Ventilator 70 07/25/16 18:00 65 -: 07/23/16 0310 07/26/16 0347 Physical Exam General Appearance: No Acute Distress, Comfortable Pulmonary Resp Exam: Clear Bilaterally, Breath Sounds Equal, No Distress Cardiology CV Exam: Regular, Normal Sinus Rhythm Gastrointestinal/Abdomen GI Exam: Soft, Non-Tender Integumentary Skin Exam: Clear, Warm Extremeties Extremities Exam: Moderate Edema (edema lower extremities however is improving. One plus.), Dependent Edema Assessment/Plan Problem List: (1) Acute kidney insufficiency Plan: Patient's renal function is improving but very slowly. Now developing hypernatremia. Still has significant fluid retention. Will reduce bumetanide and add Diuril with follow-up of electrolytes and renal indices. Medications should be adjusted for the patient's estimated GFR if clinically indicated. Avoid agents with significant potential for nephrotoxicity possible including NSAIDs for analgesia, iodine contrast agents if possible. Gadolinium is contraindicated if the GFR is below 30. I will continue to see patient intermittently. Please call with any questions. (2) Hepatitis C Plan: Not playing a role as far as his acute renal failure is concerned in this setting. (3) HTN (hypertension) Eufemia Walters MD Jul 26, 2016 16:35
--- NOTE | 2016-07-26 17:52 | HHI.HCPN ---
Reason for visit a. To assist with evaluation and management of symptoms including: pain, dyspnea, encephalopathy b. To assist medical decision maker(s) with: better understanding of current medical conditions; weighing benefits/burdens of medical treatment options; making medical treatment decisions. . (Vikki Liu) Subjective/Interval History Patient seen and assessed in room 1304 s/p TEVAR and LLE fasciotomy. Patient was extubated yesterday on 07/24/16 - tracheostomy placed for airway protection yesterday 07/25/16. Patient remains on mechanical ventilator today, FiO2 weaned from 70% to 50%. Follow-up chest x-ray on showing interval improvement in bilateral opacity. Patient lying in bed, more alert than yesterday. Awake, tracking with eyes. Patient occasionally nods head in response to questions, but not consistently. Nursing reports patient following commands 1 earlier today. Patient appears painful, grimacing. Nurse made aware. PRN fentanyl is available for pain management and was administered 2 today. Afebrile. All cultures were negative. Patient remains on IV antibiotics. Renal functioning remains relatively the same. BUN: 111, creatinine 4.34, GFR 14. Nephrology continues to follow. . Family/friend interactions Attempted to contact patient's brother, Luis, via telephone. Message left on voicemail. (Vikki Liu) Advance Directives Living Will: Never completed Health Care Surrogate: Never completed Durable Power of Center Director: Never completed (Vikki Liu) Advance Directive Specifics Date completed: Advance directives never completed. . Health Care Surrogate(s): No written designation of health care surrogacy. . Documented care wishes: No written documentation of health care goals/preferences. . (Vikki Liu) Objective Vital Signs Date Time Temp Pulse Resp B/P Pulse Ox O2 Delivery O2 Flow Rate FiO2 07/26/16 14:00 58 07/26/16 12:41 98 50 07/26/16 12:00 99.4 79 16 148/66 100 07/26/16 12:00 77 07/26/16 12:00 70 07/26/16 10:00 74 07/26/16 08:00 77 07/26/16 08:00 70 07/26/16 08:00 99.0 82 18 152/69 100 07/26/16 07:42 100 50 07/26/16 07:00 99 Mechanical Ventilator 70 07/26/16 06:00 56 07/26/16 04:00 98.7 58 14 171/73 100 07/26/16 04:00 58 07/26/16 04:00 70 07/26/16 03:54 99 50 07/26/16 02:39 15 07/26/16 02:00 60 07/26/16 00:03 99 50 07/26/16 00:00 78 07/26/16 00:00 99.0 78 18 157/68 99 07/26/16 00:00 70 07/25/16 22:00 70 07/25/16 20:30 100 50 07/25/16 20:00 98.9 74 21 148/69 100 07/25/16 20:00 74 07/25/16 20:00 70 07/25/16 19:00 99 Mechanical Ventilator 70 07/25/16 18:00 65 Intake & Output 07/26/16 07/26/16 07:00 19:00 Intake Total 214 ml 110 ml Output Total 2045 ml 800 ml Balance -1831 ml -690 ml IV Total 214 ml 110 ml Output Urine Total 1850 ml 750 ml Gastric Drainage Total 100 ml 10 ml Drainage Total 95 ml 40 ml # Bowel Movements 1 1 . Physical Exam CONSTITUTIONAL/GENERAL: This is an adequately nourished patient s/p tracheostomy this morningon mechanical ventilator. TUBES/LINES/DRAINS: Tracheostomy, OGT, dignishield, Russell catheter, SCD 1, soft restraints 2, cholecystostomy, SKIN: Incisions on left lower extremity without S/S of infection Skin temperature appropriate. Not diaphoretic. EYES: Pupils equal and round, and reactive. ENT: Nose without bleeding or purulent drainage. NECK: Trachea midline. CARDIOVASCULAR: Regular rate and rhythm without murmurs, gallops, or rubs. No JVD. RESPIRATORY/CHEST: S/p tracheostomy, remains on mechanical ventilator GASTROINTESTINAL: Abdomen distended, firm. Cholecystostomy, GENITOURINARY: Without palpable bladder distension. Russell catheter in place. MUSCULOSKELETAL: No deformities. Edema in upper extremities bilaterally LYMPHATICS: Not examined. NEUROLOGICAL: Eyes open, tracking. Nods head to some questions, not consistently. PSYCHIATRIC: Unable to assess due to patient's decreased level of responsiveness. . (Vikki Liu) Diagnostic Tests Laboratory Laboratory Tests Test 07/24/16 07/25/16 07/25/16 07/26/16 03:34 02:56 16:32 03:47 Sodium Level 144 MEQ/L 142 MEQ/L 145 MEQ/L 147 MEQ/L (136-145) (136-145) (136-145) (136-145) Potassium Level 3.0 MEQ/L 3.4 MEQ/L 3.6 MEQ/L 3.5 MEQ/L (3.5-5.1) (3.5-5.1) (3.5-5.1) (3.5-5.1) Chloride Level 108 MEQ/L 107 MEQ/L 108 MEQ/L 110 MEQ/L (98-107) (98-107) (98-107) (98-107) Carbon Dioxide Level 22.7 MEQ/L 22.4 MEQ/L 25.7 MEQ/L 25.4 MEQ/L (21.0-32.0) (21.0-32.0) (21.0-32.0) (21.0-32.0) Anion Gap 13 MEQ/L (5-15) 13 MEQ/L (5-15) 11 MEQ/L (5-15) 12 MEQ/L (5-15) Blood Urea Nitrogen 107 MG/DL 106 MG/DL 112 MG/DL 111 MG/DL (7-18) (7-18) (7-18) (7-18) Creatinine 4.30 MG/DL 4.27 MG/DL 4.48 MG/DL 4.34 MG/DL (0.60-1.30) (0.60-1.30) (0.60-1.30) (0.60-1.30) Estimat Glomerular Filtration 14 ML/MIN (>89) 14 ML/MIN (>89) 13 ML/MIN (>89) 14 ML/MIN (>89) Rate Random Glucose 133 MG/DL 111 MG/DL 121 MG/DL 121 MG/DL (74-106) (74-106) (74-106) (74-106) Calcium Level 8.9 MG/DL 9.1 MG/DL 9.0 MG/DL 8.7 MG/DL (8.5-10.1) (8.5-10.1) (8.5-10.1) (8.5-10.1) Phosphorus Level 6.3 MG/DL (2.5-4.9) Magnesium Level 2.6 MG/DL (1.5-2.5) . (Vikki Liu) Result Diagram: 07/23/16 0310 07/26/16 0347 Imaging Last 72 hours Impressions Chest X-Ray 07/25/16 0000 Signed Impressions: Service Date/Time: July 12:04 - CONCLUSION: 1. Interval placement of tracheostomy tube and removal of endotracheal tube. 2. Interval improvement in bilateral opacity. Ge Wood MD . Procedures 07/04/16: Right radial arterial line placement 07/04/16: Lumbar drain placement 07/04/16: Right IJ cortis placement 07/04/16: TEVAR and LLE fasciotomy. 07/06/16: Extubation 07/07/16: Reintubation 07/08/16: Platelet transfusion 07/08/16: Lumbar drain removed 07/11/16: Right IJ cortis removed 07/11/16: Left IJ CVL placement 07/24/16: Extubated 07/25/16: Tracheostomy and bronchoscopy . 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 (2) Delirium (3) Respiratory failure (4) NSTEMI (non-ST elevated myocardial infarction) (5) Stroke Comment: MRI shows "small punctate infarcts involving the left cerebellar hemisphere and deep white matter bilaterally " in a background of amyloid angiopathy. . (6) Acute kidney insufficiency Comment: Probably a result of ischemic injury from dissection. . (7) HTN (hypertension) (8) Hepatitis C (9) Elevated troponin (10) Cholecystitis Comment: s/p cholecystostomy tube placement. . (11) COPD (chronic obstructive pulmonary disease) Symptom Scale: (1) Pain 0-10 Scale: Unable to quantify Comment: Possible causes of pain include postop surgical pain, circulation, edema, ETT, OG, invasive lines, immobility, bedbound status etc. PRN fentanyl is available and has been administered twice today 07/26/16 . (2) Dyspnea 0-10 Scale: Unable to quantify Comment: Patient was extubated 07/24/16. Status post tracheostomy and bronchoscopy yesterday 07/25/16. Patient remains on mechanical ventilator, no CPAP trials today. FiO2 decreased from 70% this morning to 50% this afternoon. Follow-up CXR that is postprocedure showing interval placement of bilateral opacity. . (3) Encephalopathy Comment: Patient lying in bed, more alert than yesterday. Awake, tracking with eyes. Patient occasionally nods head in response to questions, but not consistently. Nursing reports patient following commands 1 earlier today. . Pertinent Non-Medical Issues Psychosocial: Patient was born in [place] and moved to [place] as young adult. Patient has a long history of polysubstance abuse which includes EtOH consumption and crack cocaine. The patient continues to drink 8-12 beers daily. The patient has never been and has no children. His mother and 2 of his siblings live locally and a third brother lives in [place]. Patient's mother states patient has been diagnosed with oppositional defiant disorder and is a history of medical noncompliance. Prior to his hospitalization, the patient was living with an elderly gentleman and they were helping each other. 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 The patient received disability approximately 1 week prior to this hospitalization. Spiritual: [employer] nicolas Legal: Per [place] statutes, health care proxy decision making would fall to the patient's mother. Family members state while in the ED at [facility] patient identified his brother (Luis) as his medical decision maker, apparently the appropriate documentation and was not completed. Family members are in agreement and working together on patient's medical decisions. However the patient's mother and 2 other siblings (Olga and Jean Carlos) has opted out of decision making role, deferring to brother Luis. Ethical issues impacting care: No known ethical issues impacting care at this time . Important Contacts Nathalia Izquierdo, mother: [phone] Brother (Luis); [phone] [id number] (Chanda); [phone] Sister (Olga); [phone] Brother (Jean Carlos): [phone] . Prognosis Patient is a 60 year old man who was admitted with a type B aortic dissection. He is currently critically ill status post with TAVER and LLE fasciotomy. His past medical history is significant for polysubstance abuse (EtOH/crack cocaine) , HTN, CAD, COPD, hepatitis C/cirrhosis as well as medical noncompliance The patient currently remains orotracheally intubated and sedated. BUBBA - patient likely sustained severe ischemic injuries to both kidneys secondary to dissection involving renal arteries. It is certainly possible that this patient will be successfully extubated and upcoming days, eventually being stable enough to be discharged to SNF. However given the patient's past medical history, noncompliance, and this recent acute event, the patient has a strong probability into new decline and/or complications. . Code Status: No Code (patient is currently intubated. CODE STATUS changed to NO CODEDNR. If/when the patient is extubated, whether intentionally or unintentionally, the family requested the patient not be reintubated.) Plan * FULL CODE * Decision-making: Per [place] statutes, health care proxy decision making would fall to the patient's mother. Family members state while in the ED at [facility] patient identified his brother (Luis) as his medical decision maker, apparently the appropriate documentation and was not completed. Family members are in agreement and working together on patient's medical decisions. However the patient's mother and 2 other siblings (Olga and Jean Carlos) has opted out of decision making role, therefore decision-making multiple to the patient' s brother Luis. * Goals: Aggressive at this time per patient. * Patient showing progressive neurological improvement. Nodding and shaking his head in response to yes/no questions, reproducible. Following commands. Per Dr. Castillo, patient indicated aggressive goals by nodding his head "yes" to wanting everything done to help him. Patient nodded yes to wanting recent intubation and tracheostomy if necessary. Later in the day patient again indicated aggressive goals to palliative care nodding his head yes when asked about CPR. CODE STATUS has been changed to FULL CODE. Patient's family was notified by palliative care. * Symptom managementpain: Possible causes of pain include postop surgical pain , circulation, edema, tracheostomy ,OG, invasive lines, immobility, bedbound status etc. PRN fentanyl is available for breakthrough pain-administered 2 today 07/26/16. * Symptom managementencephalopathy: Patient lying in bed, more alert than yesterday. Awake, tracking with eyes. Patient occasionally nods head in response to questions, but not consistently. Nursing reports patient following commands 1 earlier today. * Managementdyspnea: Patient was extubated 07/24/16. Status post tracheostomy and bronchoscopy yesterday 07/25/16. Patient remains on mechanical ventilator, no CPAP trials today. FiO2 decreased from 70% this morning to 50% this afternoon. Follow-up CXR that is postprocedure showing interval placement of bilateral opacity. * Discussed with patient's nurse. * Attempted to contact patient's brother, Luis, to provide an update on patient 's clinical condition. Message left on voicemail. * Family would like frequent updates from medical team on patient's clinical condition and mental status. * Palliative care will continue to follow this patient throughout his hospitalization to establish trust, assist with symptom management and clarification of medical treatment goals. . (Vikki Liu) Attestation To help prompt me to consider important information that might be impacting today's encounter and assessment, information from prior notes written by myself or my colleagues may have been "brought forward" into today's note. My signature on this note, however, is an attestation that I personally performed the exam, history, and/or decision-making noted today, and, unless otherwise indicated, the interactions with patient, family, and staff as well as the review of records all occurred today. I also attest that the listed assessment and stated plan reflect my best clinical judgment today based on the combination of historical information, prior notes, and today's exam/ interactions. When time spent is documented, it refers only to time spent today by the signer, or if indicated, combined time spent today by collaborating physician/nurse practitioner. . (Vikki Liu) Collaborating MD Comments . Chart reviewed. Cased discussed with palliative care BRINEYARD SUPERVISOR. Above BRINEYARD SUPERVISOR note reviewed and I concur. . (Obed De La Cruz MD) Vikki Liu Jul 26, 2016 17:52 Obed De La Cruz MD September 09, 2016 15:29
[2016-07-26] MEDS: SODIUM CHLOR 0.9% 1000 ML INJ 1,000 ML IV SCH (19:15)
[2016-07-26] MEDS: HALOPERIDOL LACTATE 5 MG/ML AMP IV PRN (21:46)
[2016-07-26] MEDS: MELATONIN 5 MG TAB PO SCH (21:48)
[2016-07-26] MEDS: oxyCODONE HCL ORAL CONC 20 MG/ML SYRINGE PO PRN (22:17)
[2016-07-27] VITALS (17 sets, daily range): BP systolic 123–189; BP diastolic 58–99; PULSE 49–90; RESP 12–28; TEMP 97.4–98.9; O2SAT 97–100
[2016-07-27] MEDS: CHLORHEXIDINE GLUCONATE 2 % 1 PACK (2 CLOTHS) TOP SCH (04:58)
[2016-07-27] MEDS: HYDROmorphone HCL PF 1 MG/ML VIAL IV PUSH PRN ×4 (04:59→22:35)
[2016-07-27 05:14] LABS: BICARBONATE 24.9 MEQ/L (21.0-32.0); POTASSIUM 3.4 MEQ/L (3.5-5.1)
[2016-07-27] MEDS: INSULIN NovoLIN REGULAR SUPPLEMENTAL SCALE SQ SCH ×4 (06:00→18:00)
[2016-07-27] MEDS: METOCLOPRAMIDE HCL 10 MG/2 ML VIAL IV PUSH SCH ×3 (06:58→21:14)
[2016-07-27] MEDS: PIPERACIL-TAZO 2.25 GM PREMIX 50 ML IV SCH ×2 (06:58→18:37)
[2016-07-27] MEDS: ARTIFICIAL TEARS OPTH SOLN 15 ML BTL EACH EYE SCH ×3 (06:58→21:14)
[2016-07-27] MEDS: hydrALAZINE HCL 20 MG/ML VIAL IV PRN ×2 (08:45→21:56)
[2016-07-27] MEDS: SODIUM CHLORIDE 0.9% FLUSH 10 ML FLUSH IVF SCH (09:00)
[2016-07-27] MEDS: POLYETHYLENE GLYCOL 17 GM PKG OG-TUBE SCH ×2 (09:00→21:14)
[2016-07-27] MEDS: CHLORHEXIDINE 0.12% (ORAL KIT) 15 ML CUP MT SCH ×2 (09:24→20:00)
[2016-07-27] MEDS: ASPIRIN 81 MG CHEW TAB CHEW SCH (09:25)
[2016-07-27] MEDS: CHLOROTHIAZIDE SOD 500 MG VIAL IV SCH (09:26)
[2016-07-27] MEDS: BUMETANIDE INJ 1 MG/4 ML VIAL IV PUSH SCH ×2 (09:31→21:13)
[2016-07-27] MEDS: PANTOPRAZOLE SODIUM 40 MG VIAL IV SCH (09:31)
[2016-07-27] MEDS: DOCUSATE SODIUM 50 MG/SENNA 8.6 MG TAB PO SCH ×2 (09:32→21:13)
[2016-07-27] MEDS: MULTIVITAMIN TAB PO SCH (09:33)
[2016-07-27] MEDS: THIAMINE HCL 100 MG TAB PO SCH (09:33)
[2016-07-27] MEDS: QUEtiapine FUMARATE 25 MG TAB PO SCH ×2 (09:33→21:13)
[2016-07-27] MEDS: CALCIUM ACETATE 667 MG CAP PO SCH ×3 (09:33→18:38)
[2016-07-27] MEDS: HEPARIN SODIUM - SQ 10,000 UNITS/ML VIAL SQ SCH ×2 (09:33→21:14)
[2016-07-27] MEDS: LACTULOSE SYRUP 20 GM/30 ML CUP PO SCH ×4 (09:36→21:14)
--- NOTE | 2016-07-27 09:45 | PD.VS.PN ---
Subjective POD #: [id number] Procedure(s): TEVAR, L LE fasciotomies for acute TBAD with visceral/renal/LLE malperfusion Subjective/Hospital Course Responds to voice but not squeezing hands this morning to my request HD stable Still making good UOP. 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 Hamlet Long MD FACS body shop supervisor [facility] Hamlet Long MD Jul 27, 2016 09:45
--- NOTE | 2016-07-27 09:53 | HHI.CCPN ---
Subjective Remarks/Hospital Course Hospital Course: This is a 60-year-old male who is transferred emergently from outside hospital with per report and acute type B dissection. Apparently the patient told his family member today that he had searing back pain and was taken to the emergency department. A CT of the chest at that time showed a type B dissection. The patient was intubated the outside facility and transferred to [facility] for emergent evaluation management. Unfortunately, the patient is unable to provide any additional history at this time. I was at bedside and the patient arrived to the surgical intensive care unit. Dr. Long and I both evaluated the patient and when he arrived he was in a junctional bradycardia with heart rate in the 40s. He had obvious ST depressions in lead II on telemetry. Our initial concern was that we have extended the dissection into the type A dissection. We also did not have any CT of the abdomen and pelvis. On her physical exam, the patient had a cold left foot without pulses. I emergently placed a right radial arterial line, please see separate procedure note for details. We then went emergently to the CT scanner for repeat CT aortogram of the chest abdomen and pelvis to investigate the extent to which the dissection has extended. The CT aortogram demonstrated that this was still a type B dissection with the celiac artery being significantly compressed and possibly comprising flow from the dissection flap. The right kidney appears to be perfused off the false lumen and not the true lumen, and there is no contrast going down the left femoral artery. Patient was then brought back to the intensive care unit. His blood pressure is controlled on nicardipine infusion for goal systolic blood pressure less than 110. A 12-lead EKG at that time was done which demonstrated significant ST depressions in the inferior leads as well as the far lateral leads consistent with subendocardial ischemia. At the request of Dr. Long in anticipation of going emergently to the operative theater, I placed a lumbar drain for spinal protection, please see separate procedure note for details. At that point the patient was taken emergently to the operating room. Critical care medicine is been consulted to evaluate and manage the patient's type B dissection, hemodynamic's, acute hypoxic respiratory failure. 07/05: taken to OR for TEVAR overnight. lactate cleared overnight. uop adequate. Cr elevated to 1.8 this AM. He is on Coreg 50 mg by mouth 07/06: oliguric overnight. Cr rising. however, lactate cleared. other markers of end-organ perfusion better. likely ATN from time of dissection. awake following commands. moving bilateral lower extremities. clear CSF in lumbar drain. on intermittent norepinephrine to maintain spinal perfusion. 07/07: extubated yesterday, followed commands, good pulmonary mechanics. However , after extubation, became acutely delirious- probable combination of etoh withdraw and icu delirium, some pain. mental status waxed and waned throughout the day and ultimately reintubated overnight for worsening waning mental status and hypoxia. post-extubation it has been documented that he continues to move his bilateral lower extremities to painful stimuli and spontaneously. does not follow commands this morning. troponins downtrending. cardiology evaluated the patient yesterday, formal note pending, but per my conversation, plan was for ongoing conservative management as we are doing, and plan for nuc med stress test when stable. 07/08: still moving bilateral LEs spontaneously and w/d to pain. remains intubated with persistent agitation. hypoxia improving. platelets continue to fall, likely a combination of consumption, BUBBA, liver disease. will give unit of platelets prior to d/c lumbar drain. 07/09: Troponin spill resolving without evidence of ongoing injury. Major obstacle is agitation related to ETOH withdrawal followed by necessary sedation. Continue to work toward vent weaning. 07/10: Afebrile. Not following commands. Continues to be agitated for reasons above. Tolerating tube feeding at goal rate. Creatinine hopefully has plateaued. 07/11: CURRENT TEMPERATURE 100.2. MRI brain yesterday revealed left cellular restricted diffusion area likely acute infarct with small punctate areas within the coronal radiata possibly embolic event. Patient is arousable and will move all 4 extremities but not following commands. Left foot remains cool. Tolerating tube feeding. No bowel movement times 4 days. 07/12: Tmax 99.7. Currently 99. Noted right vertebral/distal left MCA/mid right PLANT BUYER stenosis on imaging yesterday. Central line exchange from right to left side due to bleeding. No bowel movement for tolerating tube feedings with very low residuals. Still wean sedation. 07/13: Currently afebrile. Patient with soap side enema yesterday with's positive BM 3 overnight.. Go containment device currently in place. Currently hypertensive/when necessary labetalol and clonidine will be added. Noted liberalize SCI around 120 systolic blood pressure. Arousable on the ventilator and moves all 4 extremities spontaneously but not following commands. 07/14: Tmax 99.3. No significant bowel movement overnight. Currently hypotensive. Noted SCI around 120 systolic blood pressure recommended by vascular surgery. Arousable on ventilator on sedation vacation moves all 4 extremity spontaneously but not to commands. Subjective: 07/15: Afebrile. -2775 cc stool past 24 hours. Currently hypertensive. Bradycardic. Requiring antihypertensives. Plan for percutaneous cholecystostomy tube today. 07/16: Remains afebrile. CXR clearing. Renal injury without change, spontaneous urine acceptable. 07/17: No material change. Tolerates CPAP. 07/18: Family is talking with palliative Care service. 07/19: Will try CPAP with decreasing pressure support. DNR status clouds issue for extubation. 07/20: Failed SBT yesterday, could not tolerate lower pressure support. 07/21: Tolerates 5/5 SBT for several hours. Unresponsive, no eye opening today. No improvement in motor function. Extensive discussion with his brother Luis yesterday. Family is pretty consolidated in their wish to withdraw artificial support. Hopefully we can discuss options with all principals Friday. 07/22: Nods head accurately to questions today. Moves 4 limbs to command, left is minimal. 07/23: Patient nods head yes to wanting re-intubation and trach if necessary. He nods "yes" to wanting us to do everything to help him live. 07/24: Still wants trial extubation and reintubation if necessary. 07/25: Extubated 24 hours ago. Sleepy and accumulating secretions in upper airway. He will require a protected airway. His interaction with me over the past three days have all indicated that he wants us to perform a tracheostomy if he fails the extubation trial. He confirms his desire to live and remain full code status. 07/26: Stronger, more alert on trach ventilation. Dobbhoff or PEG retirement? 07/27: Renal function continues to improve. More alert, interactive. Objective Vital Signs Date Time Temp Pulse Resp B/P Pulse Ox O2 Delivery O2 Flow Rate FiO2 07/27/16 08:00 100 Ventilator 40 07/27/16 08:00 70 07/27/16 05:29 14 07/27/16 04:00 98.5 128/60 07/24/16 13:15 6 Intake and Output 07/26/16 07/26/16 07/27/16 08:00 16:00 00:00 Intake Total 92 ml 110 ml 183 ml Output Total 740 ml 800 ml 855 ml Balance -648 ml -690 ml -672 ml Result Diagram: 07/23/16 0310 07/27/16 0412 Imaging Last Impressions Chest X-Ray 07/15/16 0600 Signed Impressions: Service Date/Time: Friday, July 15, 2016 04:38 - CONCLUSION: Some worsening of the bilateral pulmonary infiltrates. Joe Appiah Jr., MD Abdomen X-Ray 07/15/16599 Signed Impressions: Service Date/Time: Friday, July 15, 2016 04:41 - CONCLUSION: No dilated bowel to suggest an obstruction. Joe Appiah Jr., MD Gall Bladder Ultrasound 07/14/16 0000 Signed Impressions: Service Date/Time: Thursday, July 14, 2016 11:36 - CONCLUSION: Abnormal gallbladder as described above. Cholecystitis would be consideration. The patient is only minimally tender around the gallbladder. Donis Hernandez MD FACR Abdomen/Pelvis CT 07/13/16 0000 Signed Impressions: Service Date/Time: Wednesday, July 13, 2016 17:29 - CONCLUSION: 1. Abnormal appearance of the gallbladder with wall thickening and possible pericholecystic fluid. No calcified stones. Recommend hepatobiliary tract scan to evaluate for acalculus cholecystitis. 2. Bilateral lower lung consolidation and bilateral pleural effusions. 3. Moderate amount of stool in the left colon. 4. Bilateral nonobstructing renal stones. Joe De Leon MD Neck Magnetic Resonance Angiography 07/11/16 0000 Signed Impressions: Service Date/Time: June 14:29 - CONCLUSION: 1. No evidence of carotid stenosis. 2. Short segment high-grade stenosis involving the mid right vertebral artery greater than 80 with a patent left vertebral artery Abhijeet Salinas MD Head Magnetic Resonance Angiography 07/11/16 0000 Signed Impressions: Service Date/Time: June 14:29 - CONCLUSION: 1. Evidence of atherosclerotic disease with focal distal left MCA branch stenosis and focal mid right PLANT BUYER stenosis. 2. No proximal high grade stenosis or aneurysm. Bladimir Gasca MD Brain MRI 07/10/16 0000 Signed Impressions: Service Date/Time: Sunday, July 10, 2016 15:03 - CONCLUSION: 1. Small punctate infarcts involving the left cerebellar hemisphere and deep white matter bilaterally in this patient with a background of amyloid angiopathy. No acute hemorrhage is seen. Abhijeet Salinas MD Renal Ultrasound 07/08/16 0000 Signed Impressions: Service Date/Time: Friday, July 08, 2016 17:16 - CONCLUSION: 1. Resistive indices could not be obtained on the right side into the patient's body habitus and shadowing bowel gas. Left renal artery resistive indices are within normal limits. 2. No significant abdominal aortic aneurysm identified status post repair. 3. Probable 7 mm nonobstructing midpole right renal calculus. 4. Tiny left lower pole cyst measuring 1.5 cm. Hamlet Vinson MD Aorta CTA 07/04/16 0000 Signed Impressions: Service Date/Time: June 19:53 - CONCLUSION: 1. Extensive aortic dissection extending from the proximal transverse aorta just distal to the origin of the left subclavian artery. Dissection extends distally through both superficial femoral arteries. 2. Occlusion of the right renal artery with absent perfusion of the right kidney. Dissection of the left renal artery with absent perfusion of the anterior left kidney. 3. 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 4. Occlusion of left external iliac artery and right internal iliac artery. 5. ET tube in satisfactory position. Dependent consolidation in both lungs. Probable mild liver cirrhosis. No obstruction or free fluid. Russell catheter in decompressed bladder. See above discussion. Rodriguez Jeff MD Objective Remarks GENERAL: 60-year-old male. HEENT: Normocephalic. Atraumatic. Pupils 3 mm, reactive, NECK: Supple. Orotracheally intubated. CHEST: Clear to auscultation, no wheezes rales or rhonchi. More comfortable pattern. CARDIOVASCULAR: RRR. S1, S2 no S4. No m,r. No JVD ABDOMEN: Non-distended, soft. No rigidity. Active bowel sounds. MUSCULOSKELETAL: Distal pulses 2+. Left leg weak/numb. NEUROLOGICAL: Withdraws both upper and LEs to noxious stimuli. Tracks with eyes , node head. Protects airway Date of Insertion: Jul 11, 2016 Line: Central Venous Catheter Side: Left Location: Internal, Jugular A/P Assessment and Plan Neuro/Psych: Left cerebellar lacunar infarct Right vertebral/distal left MCA and mid right PLANT BU[employer]ER stenosis Severe Agitated Delirium Alcohol Withdrawal - up to 15 beers daily Risk for spinal cord hypoperfusion Alcohol abuse History of polysubstance abuse including crack cocaine Lumbar drain placement - removed 07/08 Insomnia On melatonin 5 mg at night as needed for insomnia Daily thiamine 100 mg daily for EtOH use MRI brain 07/10 revealed left cerebellar cystic diffusion region with small punctate areas in the suarez radiata likely embolic. Possible amyloid. MRA head/neck revealed right vertebral 80% short segment stenosis, distal left MCA and mid right PLANT BUYER stenosis EEG 07/10 revealed no seizure activity Delirium/Withdraw regimen: --Tizanidine 2mg po BID for pain adjuvant and to help with delirium --Seroquel 25 mg twice a day for delirium/weaning to off --Haldol 5mg iv q4h prn for breakthrough agitation. --Valium 5mg po q8hr for etoh withdraw, start slow taper over through 07/15 --Ativan 1mg iv q15min prn for withdraw symptoms --continue to avoid Precedex for now given recent junctional bradycardia, NSTEMI , and need for continued spinal cord protection with goal systolic blood pressure of 140 to 160 recommended per vascular surgery. -- Okayed with Dr. Long for aspirin 324 mg daily Respiratory: Acute hypoxic and hypercarbic respiratory failure -- PRVC 18/550/0.8/5/40 Vent bundle Bronchodilator therapy every 6 hours and albuterol every 2 hours when needed Head of bed 30 07/12 SAT/SBT approximately 3 hours.. Yesterday minimal due to multiple scans performed Wean FiO2 for goal SPO2 greater than 92% - We will proceed directly to trach as per my previous interactions with patient. -Trach 07/25. Cardiovascular: Postop T4 with left lower x-ray fasciotomy secondary to type B aortic dissection with renal/visceral and left lower extreme L perfusion Thoracic endovascular stent with left lower extremity fasciotomy/ compartments with [address] Long Acute type B dissection- secured Type II NSTEMI- Demand Ischemia- resolving Junction bradycardia- resolved. Lactic Acidosis- resolved. Goal SBP > 120 for spinal cord protection -- troponin downtrending. 6.81 -- elevated troponins likely combination of demand ischemia and poor renal clearance -- Cardiology: Dr. Mondragon following. plan for conservative management with myocardial perfusion scan when stable. -- 2d echo: EF 55%, no RWMA. 2-D echo 07/08 repeat EF 60-65%. Mild MR. At [facility] dilated. RENO 49 mmHg --Cardiac output currently is 3.8. SVV is 13 As needed labetalol/clonidine for systolic blood pressure greater than 160 My partner added hydralazine overnight. --Use norepinephrine to maintain systolic blood pressure greater than 120 Renal: Acute kidney injury Acute Tubular Necrosis Right and left nephrolithiasis Likely secondary to hypoperfusion of the kidney from dissection, ATN -- FENa 07/07 1.2% consistent with ATN. Urine eos negative. Urine urea ordered -- order renal ultrasound with doppler. Revealed patent renal arteries bilaterally. Tiny 7 mm right renal calculus and 1.5 cm left renal cyst. -- Strict I/Os Russell placement to be maintained --nephrology consult 07/08 appreciated. No indication for dialysis at this point Avoid nephrotoxins drugs BUN/creatinine. Stabilized FEN/GI: Colonic ileus Acute protein calorie malnutrition- mild Non-anion gap metabolic acidosis- resolved. Hyperphosphatemia Hyper-magnesium Hyponatremia History of peptic ulcer disease Hepatitis C -from IV drug use Elevated AST TF: Nepro at goal 40 cc an hour --nutrition consult. Daily BMP --Currently on PhosLo 2668 mg 3 times a day for hyperphosphatemia Protonix for GI prophylaxis. Stephie-Colace twice a day for bowel regimen. MiraLAX twice a day lactulose 4 times daily. KUB revealed 8 cm transverse colon ileus. Positive results with sepsis enema yesterday. CT abdomen/those revealed wall thickening or gallbladder. 2 right midpole no obstructing kidney stones, left circumflex continues on, to semi-bilateral pleural effusions and large amount stool left colon. Plan for percutaneous cholecystostomy tube for gallbladder. Not a surgical candidate at this time. Heme/ID: Leukocytosislikely reactive Acute Blood Loss Anemia Thrombocytopenia Daily CBC No infectious etiology suspected this time Daily coags --thrombocytopenia is likely multifactorial from liver disease, consumptive from critical illness and dissection. Blood cultures/sputum/urine ordered 07/11 no growth to date Endocrine: Hyperglycemia of critical illness -- SSI, medium scale, every 6 hours Prophylaxis: GI Prophylaxis Protonix 40 mg IV every 24 DVT Prophylaxis -- SCDs/heparin . Lines: 07/13 -radial arterial line --07/04-07/11 right IJ cortis -- Left IJ CVL 07/11 present - out I spoke at length with patient's brother Luis after the procedure and we established a plan to watch him closely while he's off all sedation and reassess his mental status. Overall impression: Alert, responds. Renal function slowly improving. Comfortable after trach. Carlos Campos MD Jul 27, 2016 09:53
[2016-07-27] MEDS: DOBUTamine 250 MG/D5W 250 ML PREMIX DRIP IV SCH (13:34)
--- NOTE | 2016-07-27 13:53 | EKG ---
Date Performed: 07/25/2016 Time Performed: 16:16:50 PTAGE: 60 years EKG: Sinus rhythm Prolonged QT interval Leftward axis Poor R wave progression - probable normal variant Lateral ST-T c hanges are nonspecific Since previous tracing, no significant change noted Borderline ECG PREVIOUS TRACING : 07/15/2016 02.38.56 DOCTOR: Clive Brennan Interpretating Date/Time 07/27/2016 13:54:09
--- NOTE | 2016-07-27 16:28 | HHI.NPPN ---
Subjective History of Present Illness This patient is a 60-year-old male apparently with a history of previous alcohol and crack usage also has a history of hepatitis C, coronary disease and hypertension as well as medical noncompliance. Patient was admitted with a type B aortic dissection. CTA thoracic aorta and abdominal aorta performed July 04, 2016 revealed occluded right renal artery as well as perfusion only to the left posterior aspect of the left kidney. Patient status post emergent TAVA, left lower extremity fasciectomy mention of previous nonperfusion to that extremity. Patient's creatinine level was within normal range from previous records prior to this admission however patient had evidence of renal sufficiency on presentation and his creatinine level has continued to rise to a level of 4.75 Date of Consultation with marginal urine output. Interval History Patient nonverbal but awake. Review of Systems General General Remarks Unobtainable because of clinical status. Objective Data Data 07/26/16 07/27/16 19:00 07:00 Intake Total 110 ml 313 ml Output Total 800 ml 1805 ml Balance -690 ml -1492 ml IV Total 110 ml 193 ml Tube Irrigant 120 ml Output Urine Total 750 ml 1600 ml Gastric Drainage Total 10 ml 25 ml Drainage Total 40 ml 180 ml # Bowel Movements 1 0 Vital Signs Date Time Temp Pulse Resp B/P Pulse Ox O2 Delivery O2 Flow Rate FiO2 07/27/16 16:11 100 40 07/27/16 14:00 79 07/27/16 12:43 100 40 07/27/16 12:00 66 07/27/16 12:00 40 07/27/16 12:00 97.6 68 13 128/62 99 07/27/16 10:00 80 07/27/16 09:59 20 07/27/16 08:00 100 Ventilator 40 07/27/16 08:00 40 07/27/16 08:00 70 07/27/16 08:00 97.4 50 28 189/88 100 07/27/16 08:00 100 40 07/27/16 07:00 100 Mechanical Ventilator 40 07/27/16 06:00 49 07/27/16 04:00 67 07/27/16 04:00 50 07/27/16 04:00 98.5 67 12 128/60 100 07/27/16 03:45 100 50 07/27/16 02:00 59 07/27/16 01:08 98 50 07/27/16 00:00 50 07/27/16 00:00 98.9 67 12 133/60 100 07/27/16 00:00 67 07/26/16 23:16 18 07/26/16 23:16 18 07/26/16 22:40 100 50 07/26/16 22:00 92 07/26/16 20:00 99.3 69 20 176/79 100 07/26/16 20:00 50 07/26/16 20:00 69 07/26/16 19:00 99 Mechanical Ventilator 50 -: 07/23/16 0310 07/27/16 0412 Physical Exam General Appearance: No Acute Distress, Comfortable Pulmonary Resp Exam: Clear Bilaterally, Breath Sounds Equal, No Distress Cardiology CV Exam: Regular, Normal Sinus Rhythm Gastrointestinal/Abdomen GI Exam: Soft, Non-Tender Integumentary Skin Exam: Clear, Warm Extremeties Extremities Exam: Moderate Edema (dependent edema lower extremities however is improving. One plus.), Dependent Edema Assessment/Plan Problem List: (1) Acute kidney insufficiency Plan: Patient's renal function is improving but very slowly. Still with hypernatremia. Volume status much improved. Reduce bumetanide further to 1 mg every 12. Free water via feeding tube also for hypernatremia. Apparently the patient's feeding tube is to intermittent suction these last 2 days. According to nurse minimal output at this time. I will defer to critical care regarding initiating feeding for nutritional support. Medications should be adjusted for the patient's estimated GFR if clinically indicated. Avoid agents with significant potential for nephrotoxicity possible including NSAIDs for analgesia, iodine contrast agents if possible. Gadolinium is contraindicated if the GFR is below 30. I will continue to see patient intermittently. Please call with any questions. (2) Hepatitis C Plan: Not playing a role as far as his acute renal failure is concerned in this setting. (3) HTN (hypertension) Eufemia Walters MD Jul 27, 2016 16:28
[2016-07-27] MEDS: SODIUM CHLOR 0.9% 1000 ML INJ 1,000 ML IV SCH (19:15)
[2016-07-27] MEDS: MELATONIN 5 MG TAB PO SCH (21:13)
[2016-07-28] VITALS (18 sets, daily range): BP systolic 131–163; BP diastolic 61–94; PULSE 70–98; RESP 14–27; TEMP 99.1–101.1; O2SAT 95–99
[2016-07-28] MEDS: HYDROmorphone HCL PF 1 MG/ML VIAL IV PUSH PRN ×3 (03:08→18:20)
[2016-07-28] MEDS: CHLORHEXIDINE GLUCONATE 2 % 1 PACK (2 CLOTHS) TOP SCH (03:17)
[2016-07-28 04:34] LABS: POTASSIUM 3.5 MEQ/L (3.5-5.1)
[2016-07-28] MEDS: DOBUTamine 250 MG/D5W 250 ML PREMIX DRIP IV SCH ×2 (05:12→21:32)
[2016-07-28] MEDS: METOCLOPRAMIDE HCL 10 MG/2 ML VIAL IV PUSH SCH ×3 (05:18→21:18)
[2016-07-28] MEDS: ARTIFICIAL TEARS OPTH SOLN 15 ML BTL EACH EYE SCH ×3 (05:18→21:33)
[2016-07-28] MEDS: INSULIN NovoLIN REGULAR SUPPLEMENTAL SCALE SQ SCH ×4 (05:56→18:00)
[2016-07-28] MEDS: PIPERACIL-TAZO 2.25 GM PREMIX 50 ML IV SCH ×2 (06:34→18:20)
--- NOTE | 2016-07-28 07:51 | HHI.CCPN ---
Subjective Remarks/Hospital Course Hospital Course: This is a 60-year-old male who is transferred emergently from outside hospital with per report and acute type B dissection. Apparently the patient told his family member today that he had searing back pain and was taken to the emergency department. A CT of the chest at that time showed a type B dissection. The patient was intubated the outside facility and transferred to [place] for emergent evaluation management. Unfortunately, the patient is unable to provide any additional history at this time. I was at bedside and the patient arrived to the surgical intensive care unit. Dr. Long and I both evaluated the patient and when he arrived he was in a junctional bradycardia with heart rate in the 40s. He had obvious ST depressions in lead II on telemetry. Our initial concern was that we have extended the dissection into the type A dissection. We also did not have any CT of the abdomen and pelvis. On her physical exam, the patient had a cold left foot without pulses. I emergently placed a right radial arterial line, please see separate procedure note for details. We then went emergently to the CT scanner for repeat CT aortogram of the chest abdomen and pelvis to investigate the extent to which the dissection has extended. The CT aortogram demonstrated that this was still a type B dissection with the celiac artery being significantly compressed and possibly comprising flow from the dissection flap. The right kidney appears to be perfused off the false lumen and not the true lumen, and there is no contrast going down the left femoral artery. Patient was then brought back to the intensive care unit. His blood pressure is controlled on nicardipine infusion for goal systolic blood pressure less than 110. A 12-lead EKG at that time was done which demonstrated significant ST depressions in the inferior leads as well as the far lateral leads consistent with subendocardial ischemia. At the request of Dr. Long in anticipation of going emergently to the operative theater, I placed a lumbar drain for spinal protection, please see separate procedure note for details. At that point the patient was taken emergently to the operating room. Critical care medicine is been consulted to evaluate and manage the patient's type B dissection, hemodynamic's, acute hypoxic respiratory failure. 07/05: taken to OR for TEVAR overnight. lactate cleared overnight. uop adequate. Cr elevated to 1.8 this AM. He is on Coreg 50 mg by mouth 07/06: oliguric overnight. Cr rising. however, lactate cleared. other markers of end-organ perfusion better. likely ATN from time of dissection. awake following commands. moving bilateral lower extremities. clear CSF in lumbar drain. on intermittent norepinephrine to maintain spinal perfusion. 07/07: extubated yesterday, followed commands, good pulmonary mechanics. However , after extubation, became acutely delirious- probable combination of etoh withdraw and icu delirium, some pain. mental status waxed and waned throughout the day and ultimately reintubated overnight for worsening waning mental status and hypoxia. post-extubation it has been documented that he continues to move his bilateral lower extremities to painful stimuli and spontaneously. does not follow commands this morning. troponins downtrending. cardiology evaluated the patient yesterday, formal note pending, but per my conversation, plan was for ongoing conservative management as we are doing, and plan for nuc med stress test when stable. 07/08: still moving bilateral LEs spontaneously and w/d to pain. remains intubated with persistent agitation. hypoxia improving. platelets continue to fall, likely a combination of consumption, BUBBA, liver disease. will give unit of platelets prior to d/c lumbar drain. 07/09: Troponin spill resolving without evidence of ongoing injury. Major obstacle is agitation related to ETOH withdrawal followed by necessary sedation. Continue to work toward vent weaning. 07/10: Afebrile. Not following commands. Continues to be agitated for reasons above. Tolerating tube feeding at goal rate. Creatinine hopefully has plateaued. 07/11: CURRENT TEMPERATURE 100.2. MRI brain yesterday revealed left cellular restricted diffusion area likely acute infarct with small punctate areas within the coronal radiata possibly embolic event. Patient is arousable and will move all 4 extremities but not following commands. Left foot remains cool. Tolerating tube feeding. No bowel movement times 4 days. 07/12: Tmax 99.7. Currently 99. Noted right vertebral/distal left MCA/mid right [employer] stenosis on imaging yesterday. Central line exchange from right to left side due to bleeding. No bowel movement for tolerating tube feedings with very low residuals. Still wean sedation. 07/13: Currently afebrile. Patient with soap side enema yesterday with's positive BM 3 overnight.. Go containment device currently in place. Currently hypertensive/when necessary labetalol and clonidine will be added. Noted liberalize SCI around 120 systolic blood pressure. Arousable on the ventilator and moves all 4 extremities spontaneously but not following commands. 07/14: Tmax 99.3. No significant bowel movement overnight. Currently hypotensive. Noted SCI around 120 systolic blood pressure recommended by vascular surgery. Arousable on ventilator on sedation vacation moves all 4 extremity spontaneously but not to commands. Subjective: 07/15: Afebrile. -2775 cc stool past 24 hours. Currently hypertensive. Bradycardic. Requiring antihypertensives. Plan for percutaneous cholecystostomy tube today. 07/16: Remains afebrile. CXR clearing. Renal injury without change, spontaneous urine acceptable. 07/17: No material change. Tolerates CPAP. 07/18: Family is talking with palliative Care service. 07/19: Will try CPAP with decreasing pressure support. DNR status clouds issue for extubation. 07/20: Failed SBT yesterday, could not tolerate lower pressure support. 07/21: Tolerates 5/5 SBT for several hours. Unresponsive, no eye opening today. No improvement in motor function. Extensive discussion with his brother Luis yesterday. Family is pretty consolidated in their wish to withdraw artificial support. Hopefully we can discuss options with all principals Friday. 07/22: Nods head accurately to questions today. Moves 4 limbs to command, left is minimal. 07/23: Patient nods head yes to wanting re-intubation and trach if necessary. He nods "yes" to wanting us to do everything to help him live. 07/24: Still wants trial extubation and reintubation if necessary. 07/25: Extubated 24 hours ago. Sleepy and accumulating secretions in upper airway. He will require a protected airway. His interaction with me over the past three days have all indicated that he wants us to perform a tracheostomy if he fails the extubation trial. He confirms his desire to live and remain full code status. 07/26: Stronger, more alert on trach ventilation. Dobbhoff or PEG correction? 07/27: Renal function continues to improve. More alert, interactive. 07/28: Remains on mechanical ventilation via tracheostomy. Awake and alert. Objective Vital Signs Date Time Temp Pulse Resp B/P Pulse Ox O2 Delivery O2 Flow Rate FiO2 07/28/16 06:00 75 07/28/16 04:50 98 40 07/28/16 04:00 99.1 14 131/61 07/27/16 19:00 Mechanical Ventilator 07/24/16 13:15 6 Intake and Output 07/27/16 07/27/16 07/28/16 08:00 16:00 00:00 Intake Total 130 ml 122 ml 239 ml Output Total 950 ml 620 ml 675 ml Balance -820 ml -498 ml -436 ml Result Diagram: 07/28/16 0355 Imaging Last Impressions Chest X-Ray 07/15/16 06 Signed Impressions: Service Date/Time: Friday, July 15, 2016 04:38 - CONCLUSION: Some worsening of the bilateral pulmonary infiltrates. Joe Appiah Jr., MD Abdomen X-Ray 07/15/16 06 Signed Impressions: Service Date/Time: Friday, July 15, 2016 04:41 - CONCLUSION: No dilated bowel to suggest an obstruction. Joe Appiah Jr., MD Gall Bladder Ultrasound 07/14/16 0000 Signed Impressions: Service Date/Time: Thursday, July 14, 2016 11:36 - CONCLUSION: Abnormal gallbladder as described above. Cholecystitis would be consideration. The patient is only minimally tender around the gallbladder. Donis Hernandez MD FACR Abdomen/Pelvis CT 07/13/16 0000 Signed Impressions: Service Date/Time: Wednesday, July 13, 2016 17:29 - CONCLUSION: 1. Abnormal appearance of the gallbladder with wall thickening and possible pericholecystic fluid. No calcified stones. Recommend hepatobiliary tract scan to evaluate for acalculus cholecystitis. 2. Bilateral lower lung consolidation and bilateral pleural effusions. 3. Moderate amount of stool in the left colon. 4. Bilateral nonobstructing renal stones. Joe De Leon MD Neck Magnetic Resonance Angiography 07/11/16 0000 Signed Impressions: Service Date/Time: June 14:29 - CONCLUSION: 1. No evidence of carotid stenosis. 2. Short segment high-grade stenosis involving the mid right vertebral artery greater than 80 with a patent left vertebral artery Abhijeet Salinas MD Head Magnetic Resonance Angiography 07/11/16 0000 Signed Impressions: Service Date/Time: June 14:29 - CONCLUSION: 1. Evidence of atherosclerotic disease with focal distal left MCA branch stenosis and focal mid right [employer] stenosis. 2. No proximal high grade stenosis or aneurysm. Bladimir Gasca MD Brain MRI 07/10/16 0000 Signed Impressions: Service Date/Time: Sunday, July 10, 2016 15:03 - CONCLUSION: 1. Small punctate infarcts involving the left cerebellar hemisphere and deep white matter bilaterally in this patient with a background of amyloid angiopathy. No acute hemorrhage is seen. Abhijeet Salinas MD Renal Ultrasound 07/08/16 0000 Signed Impressions: Service Date/Time: Friday, July 08, 2016 17:16 - CONCLUSION: 1. Resistive indices could not be obtained on the right side into the patient's body habitus and shadowing bowel gas. Left renal artery resistive indices are within normal limits. 2. No significant abdominal aortic aneurysm identified status post repair. 3. Probable 7 mm nonobstructing midpole right renal calculus. 4. Tiny left lower pole cyst measuring 1.5 cm. Hamlet Vinson MD Aorta CTA 07/04/16 0000 Signed Impressions: Service Date/Time: June 19:53 - CONCLUSION: 1. Extensive aortic dissection extending from the proximal transverse aorta just distal to the origin of the left subclavian artery. Dissection extends distally through both superficial femoral arteries. 2. Occlusion of the right renal artery with absent perfusion of the right kidney. Dissection of the left renal artery with absent perfusion of the anterior left kidney. 3. 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 4. Occlusion of left external iliac artery and right internal iliac artery. 5. ET tube in satisfactory position. Dependent consolidation in both lungs. Probable mild liver cirrhosis. No obstruction or free fluid. Russell catheter in decompressed bladder. See above discussion. Rodriguez Jeff MD Objective Remarks GENERAL: 60-year-old male. HEENT: Normocephalic. Atraumatic. Pupils 3 mm, reactive, NECK: Tracheostomy in place CHEST: On mechanical ventilation via tracheostomy, Clear to auscultation, no wheezes rales or rhonchi. More comfortable pattern. CARDIOVASCULAR: RRR. S1, S2 no S4. No m,r. No JVD ABDOMEN: Non-distended, soft. No rigidity. Active bowel sounds. MUSCULOSKELETAL: Distal pulses 2+. Left leg weak/numb. NEUROLOGICAL: Awake and alert, Withdraws both upper and LEs to noxious stimuli. Tracks with eyes. Protects airway Date of Insertion: Jul 11, 2016 Line: Central Venous Catheter Side: Left Location: Internal, Jugular A/P Assessment and Plan Neuro/Psych: Left cerebellar lacunar infarct Right vertebral/distal left MCA and mid right [employer] stenosis Severe Agitated Delirium Alcohol Withdrawal - up to 15 beers daily Risk for spinal cord hypoperfusion Alcohol abuse History of polysubstance abuse including crack cocaine Lumbar drain placement - removed 07/08 Insomnia On melatonin 5 mg at night as needed for insomnia Daily thiamine 100 mg daily for EtOH use MRI brain 07/10 revealed left cerebellar cystic diffusion region with small punctate areas in the suarez radiata likely embolic. Possible amyloid. MRA head/neck revealed right vertebral 80% short segment stenosis, distal left MCA and mid right [employer] stenosis EEG 07/10 revealed no seizure activity Delirium/Withdraw regimen: --Tizanidine 2mg po BID for pain adjuvant and to help with delirium --Seroquel 25 mg twice a day for delirium/weaning to off --Haldol 5mg iv q4h prn for breakthrough agitation. --Valium 5mg po q8hr for etoh withdraw, start slow taper over through 07/15 --Ativan 1mg iv q15min prn for withdraw symptoms --continue to avoid Precedex for now given recent junctional bradycardia, NSTEMI , and need for continued spinal cord protection with goal systolic blood pressure of 140 to 160 recommended per vascular surgery. -- Okayed with Dr. Long for aspirin 324 mg daily Respiratory: Acute hypoxic and hypercarbic respiratory failure -- PRVC 18/550/0.8/5/40 Vent bundle Bronchodilator therapy every 6 hours and albuterol every 2 hours when needed Head of bed 30 07/12 SAT/SBT approximately 3 hours.. Yesterday minimal due to multiple scans performed Wean FiO2 for goal SPO2 greater than 92% - s/p Trach 07/25. Cardiovascular: Postop T4 with left lower x-ray fasciotomy secondary to type B aortic dissection with renal/visceral and left lower extreme L perfusion Thoracic endovascular stent with left lower extremity fasciotomy/ compartments with [address] Long Acute type B dissection- secured Type II NSTEMI- Demand Ischemia- resolving Junction bradycardia- resolved. Lactic Acidosis- resolved. Goal SBP > 120 for spinal cord protection -- troponin downtrending. -- elevated troponins likely combination of demand ischemia and poor renal clearance -- Cardiology: Dr. Mondragon following. plan for conservative management with myocardial perfusion scan when stable. -- 2d echo: EF 55%, no RWMA. 2-D echo 07/08 repeat EF 60-65%. Mild MR. [facility] dilated. RENO 49 mmHg --As needed labetalol/clonidine for systolic blood pressure greater than 160 My partner added hydralazine overnight. --Use norepinephrine to maintain systolic blood pressure greater than 120 Renal: Acute kidney injury Acute Tubular Necrosis Right and left nephrolithiasis Likely secondary to hypoperfusion of the kidney from dissection, ATN -- FENa 07/07 1.2% consistent with ATN. Urine eos negative. Urine urea ordered -- order renal ultrasound with doppler. Revealed patent renal arteries bilaterally. Tiny 7 mm right renal calculus and 1.5 cm left renal cyst. -- Strict I/Os Russell placement to be maintained --nephrology consult 07/08 appreciated. No indication for dialysis at this point Avoid nephrotoxins drugs BUN/creatinine. Stabilized FEN/GI: Colonic ileus Acute protein calorie malnutrition- mild Non-anion gap metabolic acidosis- resolved. Hyperphosphatemia Hyper-magnesium Hyponatremia History of peptic ulcer disease Hepatitis C -from IV drug use Elevated AST TF: Nepro at goal 40 cc an hour --nutrition consult. --Currently on PhosLo 2668 mg 3 times a day for hyperphosphatemia Protonix for GI prophylaxis. Stephie-Colace twice a day for bowel regimen. MiraLAX twice a day lactulose 4 times daily. KUB revealed 8 cm transverse colon ileus. Positive results with enema. CT abdomen/those revealed wall thickening or gallbladder. 2 right midpole no obstructing kidney stones, left circumflex continues on, to semi-bilateral pleural effusions and large amount stool left colon. s/p percutaneous cholecystostomy tube for gallbladder 07/15. Not a surgical candidate at this time. Heme/ID: Leukocytosislikely reactive Acute Blood Loss Anemia Thrombocytopenia Daily CBC No infectious etiology suspected this time Daily coags --thrombocytopenia is likely multifactorial from liver disease, consumptive from critical illness and dissection. Blood cultures/sputum/urine ordered 07/11 no growth to date Endocrine: Hyperglycemia of critical illness -- SSI, medium scale, every 6 hours Prophylaxis: GI Prophylaxis Protonix 40 mg IV every 24 DVT Prophylaxis -- SCDs/heparin . Lines: 07/13 -radial arterial line --07/04-07/11 right IJ cortis -- Left IJ CVL 07/11 present - out Dr. Campos spoke at length with patient's brother Luis after the procedure and we established a plan to watch him closely while he's off all sedation and reassess his mental status. Overall impression: Alert, responds. Renal function slowly improving. Comfortable after trach. Jose E Hartman MD Jul 28, 2016 07:51
[2016-07-28] MEDS: CHLORHEXIDINE 0.12% (ORAL KIT) 15 ML CUP MT SCH ×2 (08:00→19:58)
[2016-07-28] MEDS: POLYETHYLENE GLYCOL 17 GM PKG OG-TUBE SCH ×2 (09:00→21:17)
[2016-07-28] MEDS: LACTULOSE SYRUP 20 GM/30 ML CUP PO SCH ×4 (09:00→21:17)
[2016-07-28] MEDS: SODIUM CHLORIDE 0.9% FLUSH 10 ML FLUSH IVF SCH (09:00)
[2016-07-28] MEDS: PANTOPRAZOLE SODIUM 40 MG VIAL IV SCH (09:12)
[2016-07-28] MEDS: hydrALAZINE HCL 20 MG/ML VIAL IV PRN (09:12)
[2016-07-28] MEDS: CHLOROTHIAZIDE SOD 500 MG VIAL IV SCH (09:13)
[2016-07-28] MEDS: BUMETANIDE INJ 1 MG/4 ML VIAL IV PUSH SCH ×2 (09:16→21:19)
[2016-07-28] MEDS: THIAMINE HCL 100 MG TAB PO SCH (09:18)
[2016-07-28] MEDS: HEPARIN SODIUM - SQ 10,000 UNITS/ML VIAL SQ SCH ×2 (09:18→21:17)
[2016-07-28] MEDS: CALCIUM ACETATE 667 MG CAP PO SCH ×3 (09:18→18:20)
[2016-07-28] MEDS: MULTIVITAMIN TAB PO SCH (09:19)
[2016-07-28] MEDS: QUEtiapine FUMARATE 25 MG TAB PO SCH ×2 (09:19→21:18)
[2016-07-28] MEDS: ASPIRIN 81 MG CHEW TAB CHEW SCH (09:19)
[2016-07-28] MEDS: DOCUSATE SODIUM 50 MG/SENNA 8.6 MG TAB PO SCH ×2 (09:19→21:18)
[2016-07-28] MEDS: LORazepam 2 MG/ML VIAL IV PUSH PRN (10:57)
--- NOTE | 2016-07-28 11:09 | PD.VS.PN ---
Subjective POD #: [id number] Procedure(s): TEVAR, L LE fasciotomies for acute TBAD with visceral/renal/LLE malperfusion Subjective/Hospital Course Responds to voice and nodding head Still making good UOP. Objective Vitals/I&O Date Time Temp Pulse Resp B/P Pulse Ox O2 Delivery O2 Flow Rate FiO2 07/28/16 07:55 40 07/28/16 07:55 97 40 07/28/16 06:00 75 07/28/16 04:50 98 40 07/28/16 04:00 99.1 70 14 131/61 98 07/28/16 04:00 40 07/28/16 04:00 70 07/28/16 02:00 82 07/28/16 00:20 97 40 07/28/16 00:00 85 07/28/16 00:00 40 07/28/16 00:00 99.2 85 15 139/63 99 07/27/16 22:00 90 07/27/16 20:04 97 40 07/27/16 20:00 40 07/27/16 20:00 74 07/27/16 20:00 98.6 74 12 149/99 97 07/27/16 19:00 94 Mechanical Ventilator 50 07/27/16 18:00 88 07/27/16 16:11 100 40 07/27/16 16:00 97.9 52 12 123/58 99 07/27/16 16:00 73 07/27/16 16:00 40 07/27/16 14:00 79 07/27/16 12:43 100 40 07/27/16 12:00 66 07/27/16 12:00 40 07/27/16 12:00 97.6 68 13 128/62 99 07/28/16 07/28/16 07/28/16 07:00 15:00 23:00 Intake Total 389 ml Output Total 730 ml Balance -341 ml Exam: Neuro: moves spontaneously reg rate Palp pulses Laboratory Laboratory Tests Test 07/28/16 03:55 Sodium Level 151 Potassium Level 3.5 Chloride Level 113 Carbon Dioxide Level 27.0 Anion Gap 11 Blood Urea Nitrogen 103 Creatinine 4.02 Estimat Glomerular Filtration 15 Rate Random Glucose 130 Calcium Level 9.2 Assessment and Plan Assessment: (1) Dissecting aneurysm of thoracic aorta, Saran type B Status: Acute Plan Continue to wean sedation aggressively and continue vent wean Continue to watch UOP Full code Physical therapy. Hamlet Long MD FACS nonprofit manager [facility] Hamlet Long MD Jul 28, 2016 11:09
[2016-07-28] MEDS: cloNIDine HCL 0.1 MG TAB PO PRN (13:20)
[2016-07-28] MEDS: oxyCODONE HCL ORAL CONC 20 MG/ML SYRINGE PO PRN (13:20)
[2016-07-28] MEDS: ACETAMINOPHEN 325 MG TAB PO PRN (18:36)
[2016-07-28] MEDS: SODIUM CHLOR 0.9% 1000 ML INJ 1,000 ML IV SCH (19:15)
[2016-07-28] MEDS: MELATONIN 5 MG TAB PO SCH (21:18)
[2016-07-29] VITALS (18 sets, daily range): BP systolic 130–157; BP diastolic 60–72; PULSE 67–82; RESP 13–24; TEMP 98.6–101; O2SAT 96–100
[2016-07-29] MEDS: hydrALAZINE HCL 20 MG/ML VIAL IV PRN (00:43)
[2016-07-29] MEDS: HYDROmorphone HCL PF 1 MG/ML VIAL IV PUSH PRN ×5 (01:07→23:28)
[2016-07-29] MEDS: CHLORHEXIDINE GLUCONATE 2 % 1 PACK (2 CLOTHS) TOP SCH (04:00)
[2016-07-29 05:03] LABS: AUTOMATED NEUTROPHIL # 7.1 TH/MM3 (1.8-7.7); BASOPHIL # 0.4 TH/MM3 (0-0.2); BASOPHIL % 3.3 % (0.0-2.0); EOSINOPHIL # 0.6 TH/MM3 (0-0.4); HEMATOCRIT 28.1 % (39.0-51.0); LYMPH % 14.5 % (9.0-44.0); LYMPHOCYTE # 1.6 TH/MM3 (1.0-4.8); MEAN CELL VOLUME 96.2 FL (80.0-100.0); MEAN CORPUSCULAR HEMOGLOBIN 31.2 PG (27.0-34.0); MEAN CORPUSCULAR HGB CONC 32.4 % (32.0-36.0); MONO % 14.5 % (0.0-8.0); NEUT % 62.7 % (16.0-70.0); PLATELET COUNT 455 TH/MM3 (150-450); RED BLOOD COUNT 2.92 MIL/MM3 (4.50-5.90); RED CELL DISTRIBUTION WIDTH 15.1 % (11.6-17.2); WHITE BLOOD COUNT 11.3 TH/MM3 (4.0-11.0)
[2016-07-29 05:16] LABS: HEMO FLAGS DIFF FINAL
[2016-07-29] MEDS: INSULIN NovoLIN REGULAR SUPPLEMENTAL SCALE SQ SCH ×5 (05:35→23:50)
[2016-07-29 05:37] LABS: ALKALINE PHOSPHATASE 95 U/L (45-117); ALT (GPT) 27 U/L (12-78); ANION GAP 9 MEQ/L (5-15); AST (GOT) 45 U/L (15-37); BICARBONATE 30.4 MEQ/L (21.0-32.0); BLOOD UREA NITROGEN 100 MG/DL (7-18); CHLORIDE 112 MEQ/L (98-107); GLOMERULAR FILTRATION RATE 14 ML/MIN (>89); MAGNESIUM 2.8 MG/DL (1.5-2.5); POTASSIUM 3.4 MEQ/L (3.5-5.1); SODIUM (NA) 151 MEQ/L (136-145); TOTAL BILIRUBIN ADULT 1.3 MG/DL (0.2-1.0)
[2016-07-29] MEDS: ARTIFICIAL TEARS OPTH SOLN 15 ML BTL EACH EYE SCH ×3 (05:39→21:52)
[2016-07-29] MEDS: METOCLOPRAMIDE HCL 10 MG/2 ML VIAL IV PUSH SCH ×3 (05:40→21:51)
[2016-07-29] MEDS: PIPERACIL-TAZO 2.25 GM PREMIX 50 ML IV SCH ×2 (05:46→17:17)
[2016-07-29] MEDS: CHLORHEXIDINE 0.12% (ORAL KIT) 15 ML CUP MT SCH ×2 (08:00→21:52)
[2016-07-29] MEDS: POLYETHYLENE GLYCOL 17 GM PKG OG-TUBE SCH ×2 (09:00→21:51)
[2016-07-29] MEDS: CHLOROTHIAZIDE SOD 500 MG VIAL IV SCH (09:00)
[2016-07-29] MEDS: LACTULOSE SYRUP 20 GM/30 ML CUP PO SCH ×4 (09:00→21:51)
[2016-07-29] MEDS: DOCUSATE SODIUM 50 MG/SENNA 8.6 MG TAB PO SCH ×2 (09:00→22:01)
[2016-07-29] MEDS: SODIUM CHLORIDE 0.9% FLUSH 10 ML FLUSH IVF SCH (09:00)
--- NOTE | 2016-07-29 09:44 | HHI.CCPN ---
Subjective Remarks/Hospital Course Hospital Course: This is a 60-year-old male who is transferred emergently from outside hospital with per report and acute type B dissection. Apparently the patient told his family member today that he had searing back pain and was taken to the emergency department. A CT of the chest at that time showed a type B dissection. The patient was intubated the outside facility and transferred to [place] for emergent evaluation management. Unfortunately, the patient is unable to provide any additional history at this time. I was at bedside and the patient arrived to the surgical intensive care unit. Dr. Long and I both evaluated the patient and when he arrived he was in a junctional bradycardia with heart rate in the 40s. He had obvious ST depressions in lead II on telemetry. Our initial concern was that we have extended the dissection into the type A dissection. We also did not have any CT of the abdomen and pelvis. On her physical exam, the patient had a cold left foot without pulses. I emergently placed a right radial arterial line, please see separate procedure note for details. We then went emergently to the CT scanner for repeat CT aortogram of the chest abdomen and pelvis to investigate the extent to which the dissection has extended. The CT aortogram demonstrated that this was still a type B dissection with the celiac artery being significantly compressed and possibly comprising flow from the dissection flap. The right kidney appears to be perfused off the false lumen and not the true lumen, and there is no contrast going down the left femoral artery. Patient was then brought back to the intensive care unit. His blood pressure is controlled on nicardipine infusion for goal systolic blood pressure less than 110. A 12-lead EKG at that time was done which demonstrated significant ST depressions in the inferior leads as well as the far lateral leads consistent with subendocardial ischemia. At the request of Dr. Long in anticipation of going emergently to the operative theater, I placed a lumbar drain for spinal protection, please see separate procedure note for details. At that point the patient was taken emergently to the operating room. Critical care medicine is been consulted to evaluate and manage the patient's type B dissection, hemodynamic's, acute hypoxic respiratory failure. 07/05: taken to OR for TEVAR overnight. lactate cleared overnight. uop adequate. Cr elevated to 1.8 this AM. He is on Coreg 50 mg by mouth 07/06: oliguric overnight. Cr rising. however, lactate cleared. other markers of end-organ perfusion better. likely ATN from time of dissection. awake following commands. moving bilateral lower extremities. clear CSF in lumbar drain. on intermittent norepinephrine to maintain spinal perfusion. 07/07: extubated yesterday, followed commands, good pulmonary mechanics. However , after extubation, became acutely delirious- probable combination of etoh withdraw and icu delirium, some pain. mental status waxed and waned throughout the day and ultimately reintubated overnight for worsening waning mental status and hypoxia. post-extubation it has been documented that he continues to move his bilateral lower extremities to painful stimuli and spontaneously. does not follow commands this morning. troponins downtrending. cardiology evaluated the patient yesterday, formal note pending, but per my conversation, plan was for ongoing conservative management as we are doing, and plan for nuc med stress test when stable. 07/08: still moving bilateral LEs spontaneously and w/d to pain. remains intubated with persistent agitation. hypoxia improving. platelets continue to fall, likely a combination of consumption, BUBBA, liver disease. will give unit of platelets prior to d/c lumbar drain. 07/09: Troponin spill resolving without evidence of ongoing injury. Major obstacle is agitation related to ETOH withdrawal followed by necessary sedation. Continue to work toward vent weaning. 07/10: Afebrile. Not following commands. Continues to be agitated for reasons above. Tolerating tube feeding at goal rate. Creatinine hopefully has plateaued. 07/11: CURRENT TEMPERATURE 100.2. MRI brain yesterday revealed left cellular restricted diffusion area likely acute infarct with small punctate areas within the coronal radiata possibly embolic event. Patient is arousable and will move all 4 extremities but not following commands. Left foot remains cool. Tolerating tube feeding. No bowel movement times 4 days. 07/12: Tmax 99.7. Currently 99. Noted right vertebral/distal left MCA/mid right ROOM SERVICE MANAGER stenosis on imaging yesterday. Central line exchange from right to left side due to bleeding. No bowel movement for tolerating tube feedings with very low residuals. Still wean sedation. 07/13: Currently afebrile. Patient with soap side enema yesterday with's positive BM 3 overnight.. Go containment device currently in place. Currently hypertensive/when necessary labetalol and clonidine will be added. Noted liberalize SCI around 120 systolic blood pressure. Arousable on the ventilator and moves all 4 extremities spontaneously but not following commands. 07/14: Tmax 99.3. No significant bowel movement overnight. Currently hypotensive. Noted SCI around 120 systolic blood pressure recommended by vascular surgery. Arousable on ventilator on sedation vacation moves all 4 extremity spontaneously but not to commands. Subjective: 07/15: Afebrile. -2775 cc stool past 24 hours. Currently hypertensive. Bradycardic. Requiring antihypertensives. Plan for percutaneous cholecystostomy tube today. 07/16: Remains afebrile. CXR clearing. Renal injury without change, spontaneous urine acceptable. 07/17: No material change. Tolerates CPAP. 07/18: Family is talking with palliative Care service. 07/19: Will try CPAP with decreasing pressure support. DNR status clouds issue for extubation. 07/20: Failed SBT yesterday, could not tolerate lower pressure support. 07/21: Tolerates 5/5 SBT for several hours. Unresponsive, no eye opening today. No improvement in motor function. Extensive discussion with his brother Luis yesterday. Family is pretty consolidated in their wish to withdraw artificial support. Hopefully we can discuss options with all principals Friday. 07/22: Nods head accurately to questions today. Moves 4 limbs to command, left is minimal. 07/23: Patient nods head yes to wanting re-intubation and trach if necessary. He nods "yes" to wanting us to do everything to help him live. 07/24: Still wants trial extubation and reintubation if necessary. 07/25: Extubated 24 hours ago. Sleepy and accumulating secretions in upper airway. He will require a protected airway. His interaction with me over the past three days have all indicated that he wants us to perform a tracheostomy if he fails the extubation trial. He confirms his desire to live and remain full code status. 07/26: Stronger, more alert on trach ventilation. Dobbhoff or PEG group home? 07/27: Renal function continues to improve. More alert, interactive. 07/28: Remains on mechanical ventilation via tracheostomy. Awake and alert. 07/29: Spiked temperature 101.3 last night. Tolerated T piece for 2 hours yesterday. Objective Vital Signs Date Time Temp Pulse Resp B/P Pulse Ox O2 Delivery O2 Flow Rate FiO2 07/29/16 07:30 100 30 07/29/16 06:00 75 07/29/16 04:00 99.3 24 138/62 07/28/16 19:00 Mechanical Ventilator Trach Collar 07/28/16 16:01 5.00 Intake and Output 07/28/16 07/28/16 07/29/16 08:00 16:00 00:00 Intake Total 389 ml 503 ml 111 ml Output Total 730 ml 1220 ml 755 ml Balance -341 ml -717 ml -644 ml Result Diagram: 07/29/16 0340 07/29/16 0340 Imaging Last Impressions Chest X-Ray 07/15/16 06 Signed Impressions: Service Date/Time: Friday, July 15, 2016 04:38 - CONCLUSION: Some worsening of the bilateral pulmonary infiltrates. Joe Appiah Jr., MD Abdomen X-Ray 07/15/16 06 Signed Impressions: Service Date/Time: Friday, July 15, 2016 04:41 - CONCLUSION: No dilated bowel to suggest an obstruction. Joe Appiah Jr., MD Gall Bladder Ultrasound 07/14/16 0000 Signed Impressions: Service Date/Time: Thursday, July 14, 2016 11:36 - CONCLUSION: Abnormal gallbladder as described above. Cholecystitis would be consideration. The patient is only minimally tender around the gallbladder. Donis Hernandez MD FACR Abdomen/Pelvis CT 07/13/16 0000 Signed Impressions: Service Date/Time: Wednesday, July 13, 2016 17:29 - CONCLUSION: 1. Abnormal appearance of the gallbladder with wall thickening and possible pericholecystic fluid. No calcified stones. Recommend hepatobiliary tract scan to evaluate for acalculus cholecystitis. 2. Bilateral lower lung consolidation and bilateral pleural effusions. 3. Moderate amount of stool in the left colon. 4. Bilateral nonobstructing renal stones. Joe De Leon MD Neck Magnetic Resonance Angiography 07/11/16 0000 Signed Impressions: Service Date/Time: June 14:29 - CONCLUSION: 1. No evidence of carotid stenosis. 2. Short segment high-grade stenosis involving the mid right vertebral artery greater than 80 with a patent left vertebral artery Abhijeet Salinas MD Head Magnetic Resonance Angiography 07/11/16 0000 Signed Impressions: Service Date/Time: June 14:29 - CONCLUSION: 1. Evidence of atherosclerotic disease with focal distal left MCA branch stenosis and focal mid right ROOM SERVICE MANAGER stenosis. 2. No proximal high grade stenosis or aneurysm. Bladimir Gasca MD Brain MRI 07/10/16 0000 Signed Impressions: Service Date/Time: Sunday, July 10, 2016 15:03 - CONCLUSION: 1. Small punctate infarcts involving the left cerebellar hemisphere and deep white matter bilaterally in this patient with a background of amyloid angiopathy. No acute hemorrhage is seen. Abhijeet Salinas MD Renal Ultrasound 07/08/16 0000 Signed Impressions: Service Date/Time: Friday, July 08, 2016 17:16 - CONCLUSION: 1. Resistive indices could not be obtained on the right side into the patient's body habitus and shadowing bowel gas. Left renal artery resistive indices are within normal limits. 2. No significant abdominal aortic aneurysm identified status post repair. 3. Probable 7 mm nonobstructing midpole right renal calculus. 4. Tiny left lower pole cyst measuring 1.5 cm. Hamlet Vinson MD Aorta CTA 07/04/16 0000 Signed Impressions: Service Date/Time: June 19:53 - CONCLUSION: 1. Extensive aortic dissection extending from the proximal transverse aorta just distal to the origin of the left subclavian artery. Dissection extends distally through both superficial femoral arteries. 2. Occlusion of the right renal artery with absent perfusion of the right kidney. Dissection of the left renal artery with absent perfusion of the anterior left kidney. 3. 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 4. Occlusion of left external iliac artery and right internal iliac artery. 5. ET tube in satisfactory position. Dependent consolidation in both lungs. Probable mild liver cirrhosis. No obstruction or free fluid. Russell catheter in decompressed bladder. See above discussion. Rodriguez Jeff MD Objective Remarks GENERAL: 60-year-old male. HEENT: Normocephalic. Atraumatic. Pupils 3 mm, reactive, NECK: Tracheostomy in place CHEST: On mechanical ventilation via tracheostomy, Clear to auscultation, no wheezes rales or rhonchi. More comfortable pattern. CARDIOVASCULAR: RRR. S1, S2 no S4. No m,r. No JVD ABDOMEN: Non-distended, soft. No rigidity. Active bowel sounds. MUSCULOSKELETAL: Distal pulses 2+. Left leg weak/numb. NEUROLOGICAL: Awake and alert, Withdraws both upper and LEs to noxious stimuli. Tracks with eyes. Protects airway Date of Insertion: Jul 11, 2016 Line: Central Venous Catheter Side: Left Location: Internal, Jugular A/P Assessment and Plan Neuro/Psych: Left cerebellar lacunar infarct Right vertebral/distal left MCA and mid right ROOM SERVICE MANAGER stenosis Severe Agitated Delirium Alcohol Withdrawal - up to 15 beers daily Risk for spinal cord hypoperfusion Alcohol abuse History of polysubstance abuse including crack cocaine Lumbar drain placement - removed 07/08 Insomnia On melatonin 5 mg at night as needed for insomnia Daily thiamine 100 mg daily for EtOH use MRI brain 07/10 revealed left cerebellar cystic diffusion region with small punctate areas in the suarez radiata likely embolic. Possible amyloid. MRA head/neck revealed right vertebral 80% short segment stenosis, distal left MCA and mid right ROOM SERVICE MANAGER stenosis EEG 07/10 revealed no seizure activity Delirium/Withdraw regimen: --Tizanidine 2mg po BID for pain adjuvant and to help with delirium --Seroquel 25 mg twice a day for delirium/weaning to off --Haldol 5mg iv q4h prn for breakthrough agitation. --Valium 5mg po q8hr for etoh withdraw, start slow taper over through 07/15 --Ativan 1mg iv q15min prn for withdraw symptoms --continue to avoid Precedex for now given recent junctional bradycardia, NSTEMI , and need for continued spinal cord protection with goal systolic blood pressure of 140 to 160 recommended per vascular surgery. -- Okayed with Dr. Long for aspirin 324 mg daily Respiratory: Acute hypoxic and hypercarbic respiratory failure -- PRVC 18/550/0.8/5/40 Vent bundle. Daily C Pap/T piece trials Bronchodilator therapy every 6 hours and albuterol every 2 hours when needed Head of bed 30 Wean FiO2 for goal SPO2 greater than 92% - s/p Trach 07/25. Cardiovascular: Postop T4 with left lower x-ray fasciotomy secondary to type B aortic dissection with renal/visceral and left lower extreme L perfusion Thoracic endovascular stent with left lower extremity fasciotomy/ compartments with [address] Long Acute type B dissection- secured Type II NSTEMI- Demand Ischemia- resolving Junction bradycardia- resolved. Lactic Acidosis- resolved. -- elevated troponins likely combination of demand ischemia and poor renal clearance -- Cardiology: Dr. Mondragon following. plan for conservative management with myocardial perfusion scan when stable. -- 2d echo: EF 55%, no RWMA. 2-D echo 07/08 repeat EF 60-65%. Mild MR. [facility] dilated. RENO 49 mmHg --As needed labetalol/clonidine for systolic blood pressure greater than 160 Renal: Acute kidney injury Acute Tubular Necrosis Right and left nephrolithiasis Likely secondary to hypoperfusion of the kidney from dissection, ATN -- FENa 07/07 1.2% consistent with ATN. Urine eos negative. Urine urea ordered -- order renal ultrasound with doppler. Revealed patent renal arteries bilaterally. Tiny 7 mm right renal calculus and 1.5 cm left renal cyst. -- Strict I/Os Russell placement to be maintained --nephrology consult 07/08 appreciated. No indication for dialysis at this point Avoid nephrotoxins drugs BUN/creatinine. Stabilized FEN/GI: Colonic ileus Acute protein calorie malnutrition- mild Non-anion gap metabolic acidosis- resolved. Hyperphosphatemia Hyper-magnesium Hyponatremia History of peptic ulcer disease Hepatitis C -from IV drug use Elevated AST TF: Nepro at goal 40 cc an hour --nutrition consult. --Currently on PhosLo 2668 mg 3 times a day for hyperphosphatemia Protonix for GI prophylaxis. Stephie-Colace twice a day for bowel regimen. MiraLAX twice a day lactulose 4 times daily. KUB revealed 8 cm transverse colon ileus. Positive results with enema. CT abdomen/those revealed wall thickening or gallbladder. 2 right midpole no obstructing kidney stones, left circumflex continues on, to semi-bilateral pleural effusions and large amount stool left colon. s/p percutaneous cholecystostomy tube for gallbladder 07/15. Not a surgical candidate at this time. Heme/ID: Leukocytosislikely reactive Acute Blood Loss Anemia Thrombocytopenia Daily CBC Febrile Daily coags --thrombocytopenia is likely multifactorial from liver disease, consumptive from critical illness and dissection. Blood cultures/sputum/urine ordered 07/11 no growth to date Pancultured 07/29 for fevers. Not on antibiotics at this time. Endocrine: Hyperglycemia of critical illness -- SSI, medium scale, every 6 hours Prophylaxis: GI Prophylaxis Protonix 40 mg IV every 24 DVT Prophylaxis -- SCDs/heparin . Lines: 07/13 -radial arterial line - out --07/04-07/11 right IJ cortis -- Left IJ CVL 07/11 - out Dr. Campos spoke at length with patient's brother Luis after the procedure and we established a plan to watch him closely while he's off all sedation and reassess his mental status. Overall impression: Alert, responds. Renal function slowly improving. Comfortable after trach. New fever-pancultures ordered 07/29. ? SIRS following trach vs sepsis Jose E Hartman MD Jul 29, 2016 09:43
[2016-07-29] MEDS: HEPARIN SODIUM - SQ 10,000 UNITS/ML VIAL SQ SCH ×2 (10:11→21:51)
[2016-07-29] MEDS: BUMETANIDE INJ 1 MG/4 ML VIAL IV PUSH SCH ×2 (10:12→21:50)
[2016-07-29] MEDS: PANTOPRAZOLE SODIUM 40 MG VIAL IV SCH (10:12)
[2016-07-29] MEDS: ASPIRIN 81 MG CHEW TAB CHEW SCH (10:13)
[2016-07-29] MEDS: QUEtiapine FUMARATE 25 MG TAB PO SCH ×2 (10:14→21:50)
[2016-07-29] MEDS: MULTIVITAMIN TAB PO SCH (10:14)
[2016-07-29] MEDS: THIAMINE HCL 100 MG TAB PO SCH (10:14)
[2016-07-29] MEDS: CALCIUM ACETATE 667 MG CAP PO SCH ×3 (10:14→17:17)
[2016-07-29 11:17] LABS: BACTERIA, URINE FEW /hpf; BLOOD, URINE MOD (NEG); COMMENT (UR) CATH-CULTURE IND; CULTURE IF INDICATED CATH CULTURE IND; GLUCOSE,URINE NEG (NEG); KETONE, URINE NEG (NEG); MUCUS URINE FEW /lpf (OCC); NITRITE,URINE NEG (NEG); URINE COLOR YELLOW (YELLW/STRAW)
[2016-07-29] MEDS: DOBUTamine 250 MG/D5W 250 ML PREMIX DRIP IV SCH (13:01)
[2016-07-29] MEDS: SODIUM CHLOR 0.9% 1000 ML INJ 1,000 ML IV SCH (16:34)
--- NOTE | 2016-07-29 17:29 | HHI.HCPN ---
Reason for visit a. To assist with evaluation and management of symptoms including: pain, dyspnea, encephalopathy b. To assist medical decision maker(s) with: better understanding of current medical conditions; weighing benefits/burdens of medical treatment options; making medical treatment decisions. . Subjective/Interval History Patient seen and assessed in room 1304 s/p TEVAR and LLE fasciotomy. Patient was extubated yesterday on 07/24/16 - tracheostomy placed for airway protection yesterday 07/25/16. Patient remains on mechanical ventilator today, FiO2 weaned to 30%. Tolerated T-piece for 2 hours yesterday. Patient febrile overnight. Tmax 101.1 Blood, urine and sputum cultures 07/29/16 pending. WBC trending downward at 11.3, hemoglobin 9.1, hematocrit 28.1, platelets 455, neutrophils 62.7% Patient lethargic, opens eyes briefly to verbal stimuli. Does not respond to questions, does not follow commands. Showing no signs of nonverbal pain. PRN fentanyl is available hourly for pain management. PRN Oxycodone and Dilaudid have been ordered. Oxycodone 10 mg PO q 4 hours for pain level I6 and Dilaudid 1mg IV q4 hours for pain level 7-10 or when not taking PO. Patient 24 hour requirements- Dilaudid x 4. Renal functioning remains relatively the same. BUN: 100, creatinine 4.35, GFR 14. Nephrology continues to follow, monitoring UOP. . Advance Directives Living Will: Never completed Health Care Surrogate: Never completed Durable Power of Audio Video Repairer: Never completed Advance Directive Specifics Date completed: Advance directives never completed. . Health Care Surrogate(s): No written designation of health care surrogacy. . Documented care wishes: No written documentation of health care goals/preferences. . Objective Vital Signs Date Time Temp Pulse Resp B/P Pulse Ox O2 Delivery O2 Flow Rate FiO2 07/29/16 16:05 98 30 07/29/16 12:00 30 07/29/16 12:00 99.0 74 16 130/60 96 07/29/16 12:00 76 07/29/16 11:00 97 30 07/29/16 10:00 71 07/29/16 08:00 69 07/29/16 08:00 30 07/29/16 08:00 98.8 69 13 157/67 98 07/29/16 07:30 100 30 07/29/16 07:00 98 Mechanical Ventilator 50 Trach Collar 07/29/16 06:00 75 07/29/16 04:29 98 30 07/29/16 04:00 75 07/29/16 04:00 99.3 75 24 138/62 97 07/29/16 04:00 30 07/29/16 02:00 82 07/29/16 01:04 96 30 07/29/16 00:00 81 07/29/16 00:00 30 07/29/16 00:00 99.9 81 24 140/65 97 07/28/16 22:00 77 07/28/16 20:19 97 30 07/28/16 20:00 30 07/28/16 20:00 81 07/28/16 20:00 101.1 81 17 132/61 97 07/28/16 19:00 96 Mechanical Ventilator 30 Trach Collar Intake & Output 07/29/16 07/29/16 07:00 19:00 Intake Total 646 ml Output Total 1645 ml Balance -999 ml IV Total 195 ml Tube Feeding 351 ml Tube Irrigant 100 ml Output Urine Total 1575 ml Drainage Total 70 ml # Bowel Movements 0 . Physical Exam CONSTITUTIONAL/GENERAL: This is an adequately nourished patient s/p tracheostomy this morningon mechanical ventilator. TUBES/LINES/DRAINS: Tracheostomy, OGT, dignishield, Russell catheter, SCD 1, soft restraints 2, cholecystostomy, PIV 2 SKIN: Incisions on left lower extremity without S/S of infection Skin temperature appropriate. Not diaphoretic. EYES: Pupils equal and round, and reactive. ENT: Nose without bleeding or purulent drainage. NECK: Trachea midline. CARDIOVASCULAR: Regular rate and rhythm without murmurs, gallops, or rubs. No JVD. RESPIRATORY/CHEST: S/p tracheostomy, weaning off mechanical ventilator. FiO2 30 % GASTROINTESTINAL: Abdomen distended, firm. Cholecystostomy, GENITOURINARY: Without palpable bladder distension. Russell catheter in place. MUSCULOSKELETAL: No deformities. Edema in upper extremities bilaterally LYMPHATICS: Not examined. NEUROLOGICAL: Lethargic, briefly opens eyes to verbal stimuli. Does not track. Does not respond to questions. Does not follow commands. PSYCHIATRIC: Unable to assess due to patient's decreased level of responsiveness. .. Diagnostic Tests Laboratory Laboratory Tests Test 07/27/16 07/28/16 07/29/16 07/29/16 04:12 03:55 03:40 10:45 Sodium Level 149 MEQ/L 151 MEQ/L 151 MEQ/L (136-145) (136-145) (136-145) Potassium Level 3.4 MEQ/L 3.5 MEQ/L 3.4 MEQ/L (3.5-5.1) (3.5-5.1) (3.5-5.1) Chloride Level 111 MEQ/L 113 MEQ/L 112 MEQ/L (98-107) (98-107) (98-107) Carbon Dioxide Level 24.9 MEQ/L 27.0 MEQ/L 30.4 MEQ/L (21.0-32.0) (21.0-32.0) (21.0-32.0) Anion Gap 13 MEQ/L (5-15) 11 MEQ/L (5-15) 9 MEQ/L (5-15) Blood Urea Nitrogen 105 MG/DL 103 MG/DL 100 MG/DL (7-18) (7-18) (7-18) Creatinine 4.06 MG/DL 4.02 MG/DL 4.35 MG/DL (0.60-1.30) (0.60-1.30) (0.60-1.30) Estimat Glomerular Filtration 15 ML/MIN (>89) 15 ML/MIN (>89) 14 ML/MIN (>89) Rate Random Glucose 105 MG/DL 130 MG/DL 128 MG/DL (74-106) (74-106) (74-106) Calcium Level 8.9 MG/DL 9.2 MG/DL 9.4 MG/DL (8.5-10.1) (8.5-10.1) (8.5-10.1) White Blood Count 11.3 TH/MM3 (4.0-11.0) Red Blood Count 2.92 MIL/MM3 (4.50-5.90) Hemoglobin 9.1 GM/DL (13.0-17.0) Hematocrit 28.1 % (39.0-51.0) Mean Corpuscular Volume 96.2 FL (80.0-100.0) Mean Corpuscular Hemoglobin 31.2 PG (27.0-34.0) Mean Corpuscular Hemoglobin 32.4 % Concent (32.0-36.0) Red Cell Distribution Width 15.1 % (11.6-17.2) Platelet Count 455 TH/MM3 (150-450) Mean Platelet Volume 7.5 FL (7.0-11.0) Neutrophils (%) (Auto) 62.7 % (16.0-70.0) Lymphocytes (%) (Auto) 14.5 % (9.0-44.0) Monocytes (%) (Auto) 14.5 % (0.0-8.0) Eosinophils (%) (Auto) 5.0 % (0.0-4.0) Basophils (%) (Auto) 3.3 % (0.0-2.0) Neutrophils # (Auto) 7.1 TH/MM3 (1.8-7.7) Lymphocytes # (Auto) 1.6 TH/MM3 (1.0-4.8) Monocytes # (Auto) 1.6 TH/MM3 (0-0.9) Eosinophils # (Auto) 0.6 TH/MM3 (0-0.4) Basophils # (Auto) 0.4 TH/MM3 (0-0.2) CBC Comment DIFF FINAL Differential Comment Magnesium Level 2.8 MG/DL (1.5-2.5) Total Bilirubin 1.3 MG/DL (0.2-1.0) Aspartate Amino Transf 45 U/L (15-37) (AST/SGOT) Alanine Aminotransferase 27 U/L (12-78) (ALT/SGPT) Alkaline Phosphatase 95 U/L (45-117) Total Protein 7.5 GM/DL (6.4-8.2) Albumin 1.9 GM/DL (3.4-5.0) Urine Color YELLOW (YELLW/STRAW) Urine Turbidity HAZY (CLEAR) Urine pH 6.0 (5.0-8.5) Urine Specific [place] 1.017 (1.002-1.035) Urine Protein 30 mg/dL (NEG-TRACE) Urine Glucose (UA) NEG mg/dL (NEG) Urine Ketones NEG mg/dL (NEG) Urine Occult Blood MOD (NEG) Urine Nitrite NEG (NEG) Urine Bilirubin NEG (NEG) Urine Urobilinogen LESS THAN 2.0 MG/DL (LESS THAN 2.0) Urine Leukocyte Esterase LARGE (NEG) Urine RBC 152 /hpf (0-3) Urine WBC 58 /hpf (0-5) Urine Bacteria FEW /hpf (NONE) Urine Mucus FEW /lpf (OCC) Urine Yeast with Hyphae FEW (NONE) Urine Yeast (Budding) MANY (NONE) Microscopic Urinalysis Comment CATH-CULTURE IND . Result Diagram: 07/29/16 0340 07/29/16 0340 Microbiology Microbiology Date/Time Procedure Status Source Growth 07/29/16 09:40 Gram Stain Received Sputum Endotracheal Pending 07/29/16 09:40 Sputum Culture Received Sputum Endotracheal Pending 07/29/16 10:45 Urine Culture Received Urine Catheterized Urine Pending 07/29/16 13:35 Aerobic Blood Culture Received Blood Peripheral Pending 07/29/16 13:35 Anaerobic Blood Culture Received Blood Peripheral Pending 07/29/16 13:40 Aerobic Blood Culture Received Blood Peripheral Pending 07/29/16 13:40 Anaerobic Blood Culture Received Blood Peripheral Pending . Procedures 07/04/16: Right radial arterial line placement 07/04/16: Lumbar drain placement 07/04/16: Right IJ cortis placement 07/04/16: TEVAR and LLE fasciotomy. 07/06/16: Extubation 07/07/16: Reintubation 07/08/16: Platelet transfusion 07/08/16: Lumbar drain removed 07/11/16: Right IJ cortis removed 07/11/16: Left IJ CVL placement 07/24/16: Extubated 07/25/16: Tracheostomy and bronchoscopy . Assessment and Plan Disease Oriented Problem List: (1) Dissecting aneurysm of thoracic aorta, Saran type B Comment: s/p TAVER procedure . (2) Delirium (3) Respiratory failure (4) NSTEMI (non-ST elevated myocardial infarction) (5) Stroke Comment: MRI shows "small punctate infarcts involving the left cerebellar hemisphere and deep white matter bilaterally " in a background of amyloid angiopathy. . (6) Acute kidney insufficiency Comment: Probably a result of ischemic injury from dissection. . (7) HTN (hypertension) (8) Hepatitis C (9) Elevated troponin (10) Cholecystitis Comment: s/p cholecystostomy tube placement. . (11) COPD (chronic obstructive pulmonary disease) Symptom Scale: (1) Pain 0-10 Scale: Unable to quantify Comment: Possible causes of pain include postop surgical pain, circulation, edema, ETT, OG, invasive lines, immobility, bedbound status etc. (2) Dyspnea 0-10 Scale: Unable to quantify Comment: Patient was extubated 07/24/16. Status post tracheostomy and bronchoscopy yesterday 07/25/16. Patient remains on mechanical ventilator, no CPAP trials today. FiO2 decreased from 70% this morning to 50% this afternoon. Follow-up CXR that is postprocedure showing interval placement of bilateral opacity. . (3) Encephalopathy Comment: Patient lying in bed, more alert than yesterday. Awake, tracking with eyes. Patient occasionally nods head in response to questions, but not consistently. Nursing reports patient following commands 1 earlier today. . Pertinent Non-Medical Issues Psychosocial: Patient was born in [place] and moved to [place] as young adult. Patient has a long history of polysubstance abuse which includes EtOH consumption and crack cocaine. The patient continues to drink 8-12 beers daily. The patient has never been and has no children. His mother and 2 of his siblings live locally and a third brother lives in [place]. Patient's mother states patient has been diagnosed with oppositional defiant disorder and is a history of medical noncompliance. Prior to his hospitalization, the patient was living with an elderly gentleman and they were helping each other. 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 The patient received disability approximately 1 week prior to this hospitalization. Spiritual: Sabianism nicolas Legal: Per [place] statutes, health care proxy decision making would fall to the patient's mother. Family members state while in the ED at [facility] patient identified his brother (Luis) as his medical decision maker, apparently the appropriate documentation and was not completed. Family members are in agreement and working together on patient's medical decisions. However the patient's mother and 2 other siblings (Olga and Jean Carlos) has opted out of decision making role, deferring to brother Luis. Ethical issues impacting care: No known ethical issues impacting care at this time . Important Contacts Nathalia Izquierdo, mother: [phone] Brother (Luis); [phone] Smapen-qu-ziu (Chanda); [phone] Sister (Olga); [phone] Brother (Jean Carlos): [phone] . Prognosis Patient is a 60 year old man who was admitted with a type B aortic dissection. He is currently critically ill status post with TAVER and LLE fasciotomy. His past medical history is significant for polysubstance abuse (EtOH/crack cocaine) , HTN, CAD, COPD, hepatitis C/cirrhosis as well as medical noncompliance The patient currently remains orotracheally intubated and sedated. BUBBA - patient likely sustained severe ischemic injuries to both kidneys secondary to dissection involving renal arteries. It is certainly possible that this patient will be successfully extubated and upcoming days, eventually being stable enough to be discharged to SNF. However given the patient's past medical history, noncompliance, and this recent acute event, the patient has a strong probability into new decline and/or complications. . Code Status: Full Code Plan * FULL CODE * Decision-making: Per [place] statutes, health care proxy decision making would fall to the patient's mother. Family members state while in the ED at [facility] patient identified his brother (Luis) as his medical decision maker, apparently the appropriate documentation and was not completed. Family members are in agreement and working together on patient's medical decisions. However the patient's mother and 2 other siblings (Olga and Jean Carlos) has opted out of decision making role, therefore decision-making multiple to the patient' s brother Luis. * Goals: Aggressive at this time per patient. * Blood, urine and sputum culture pending 07/29/16. * Symptom managementpain: Possible causes of pain include postop surgical pain , circulation, edema, tracheostomy ,OG, invasive lines, immobility, bedbound status etc. patient showing no nonverbal signs or symptoms of pain. PRN fentanyl is available hourly for pain management. PRN Oxycodone and Dilaudid have been ordered. Oxycodone 10 mg PO q 4 hours for pain level I6 and Dilaudid 1mg IV q4 hours for pain level 7-10 or when not taking PO. Patient 24 hour requirements- Dilaudid x 4 * Symptom managementencephalopathy: Lethargic. Opens eyes briefly to verbal stimuli. Does not track. Does not respond to questions or follow commands. * Managementdyspnea: Patient was extubated 07/24/16. Status post tracheostomy and bronchoscopy yesterday 07/25/16. Attempting to wean from mechanical ventilator, FiO2 30%. * Discussed with patient's nurse. * Palliative care will continue to follow this patient throughout his hospitalization to establish trust, assist with symptom management and clarification of medical treatment goals. . Attestation To help prompt me to consider important information that might be impacting today's encounter and assessment, information from prior notes written by myself or my colleagues may have been "brought forward" into today's note. My signature on this note, however, is an attestation that I personally performed the exam, history, and/or decision-making noted today, and, unless otherwise indicated, the interactions with patient, family, and staff as well as the review of records all occurred today. I also attest that the listed assessment and stated plan reflect my best clinical judgment today based on the combination of historical information, prior notes, and today's exam/ interactions. When time spent is documented, it refers only to time spent today by the signer, or if indicated, combined time spent today by collaborating physician/nurse practitioner. . Vikki Liu Jul 29, 2016 17:29
[2016-07-29] MEDS: MELATONIN 5 MG TAB PO SCH (21:50)
[2016-07-30] VITALS (18 sets, daily range): BP systolic 109–161; BP diastolic 51–72; PULSE 65–90; RESP 12–26; TEMP 99.7–100.8; O2SAT 92–100
[2016-07-30] MEDS: CHLORHEXIDINE GLUCONATE 2 % 1 PACK (2 CLOTHS) TOP SCH (04:00)
[2016-07-30] MEDS: DOBUTamine 250 MG/D5W 250 ML PREMIX DRIP IV SCH (05:21)
[2016-07-30] MEDS: INSULIN NovoLIN REGULAR SUPPLEMENTAL SCALE SQ SCH ×3 (05:23→18:00)
[2016-07-30] MEDS: METOCLOPRAMIDE HCL 10 MG/2 ML VIAL IV PUSH SCH ×2 (05:36→14:48)
[2016-07-30] MEDS: PIPERACIL-TAZO 2.25 GM PREMIX 50 ML IV SCH (05:37)
[2016-07-30] MEDS: ARTIFICIAL TEARS OPTH SOLN 15 ML BTL EACH EYE SCH ×3 (05:38→21:23)
--- NOTE | 2016-07-30 06:40 | RADRPT ---
EXAM DATE/TIME: 07/30/2016 05:22 [facility] COMPARISON: CHEST SINGLE AP, July 25, 2016, 12:04. INDICATIONS : Respiratory distress. MEDICAL HISTORY : Hepatitis C. Cardiovascular disease. Hypertension. SURGICAL HISTORY : Abdominal aortic aneurysm repair. ENCOUNTER: Subsequent ACUITY: 2 weeks PAIN SCORE: Non-responsive. LOCATION: Bilateral chest FINDINGS: A single view of the chest demonstrates the tracheostomy tube, and nasogastric tube and aortic stent are stable. Mild consolidation right lower lobe atelectasis versus pneumonia. Left lung is clear. No visible pneumothorax.. The cardiomediastinal contours are unremarkable. Osseous structures are inta ct. CONCLUSION: Small infiltrate right lung base. Tubes and catheter stable Daniel Casper MD on July 30, 2016 at 6:37 Board Certified Radiologist. This report was verified electronically.
--- NOTE | 2016-07-30 07:47 | PD.VS.PN ---
Subjective POD #: 26 Procedure(s): TEVAR, L LE fasciotomies for acute TBAD with visceral/renal/LLE malperfusion Subjective/Hospital Course Good UOP Creat up to 4.3 yest Nazia 2h T piece yest Febrile x 1 overnight but CXR ok - no infiltrate Objective Vitals/I&O Date Time Temp Pulse Resp B/P Pulse Ox O2 Delivery O2 Flow Rate FiO2 07/30/16 06:00 72 07/30/16 04:13 97 30 07/30/16 04:00 99.9 72 26 131/58 97 07/30/16 04:00 72 07/30/16 04:00 30 07/30/16 02:00 82 07/30/16 01:11 92 30 07/30/16 00:00 99.7 76 24 161/72 93 07/30/16 00:00 30 07/30/16 00:00 76 07/29/16 22:00 77 07/29/16 20:04 97 30 07/29/16 20:00 67 07/29/16 20:00 Mechanical Ventilator 30 07/29/16 20:00 30 07/29/16 20:00 98.6 67 141/72 96 07/29/16 18:00 74 07/29/16 16:05 98 30 07/29/16 16:00 76 07/29/16 16:00 101.0 75 14 139/63 96 07/29/16 16:00 30 07/29/16 14:00 71 07/29/16 12:00 30 07/29/16 12:00 99.0 74 16 130/60 96 07/29/16 12:00 76 07/29/16 11:00 97 30 07/29/16 10:00 71 07/29/16 08:00 69 07/29/16 08:00 30 07/29/16 08:00 98.8 69 13 157/67 98 07/30/16 07/30/16 07/30/16 07:00 15:00 23:00 Intake Total 319 ml Output Total 660 ml Balance -341 ml Exam: MENSAH L leg incisions healing nicely good perfusion pita draining Laboratory Laboratory Tests Test 07/29/16 10:45 Urine Color YELLOW Urine Turbidity HAZY Urine pH 6.0 Urine Specific [place] 1.017 Urine Protein 30 Urine Glucose (UA) NEG Urine Ketones NEG Urine Occult Blood MOD Urine Nitrite NEG Urine Bilirubin NEG Urine Urobilinogen LESS THAN 2.0 Urine Leukocyte Esterase LARGE Urine RBC 152 Urine WBC 58 Urine Bacteria FEW Urine Mucus FEW Urine Yeast with Hyphae FEW Urine Yeast (Budding) MANY Microscopic Urinalysis Comment CATH-CULTURE IND Date/Time Procedure Status Source Growth 07/29/16 13:40 Aerobic Blood Culture Received Blood Peripheral Pending 07/29/16 13:40 Anaerobic Blood Culture Received Blood Peripheral Pending 07/29/16 10:45 Urine Culture Received Urine Catheterized Urine Pending 07/29/16 09:40 Gram Stain Received Sputum Endotracheal Pending 07/29/16 09:40 Sputum Culture Received Sputum Endotracheal Pending Assessment and Plan Assessment: (1) Dissecting aneurysm of thoracic aorta, Saran type B Status: Acute Plan Continue to wean sedation aggressively and continue vent wean Continue to watch UOP Full code Physical therapy. I talked with the brother yesterday and he understands mcc plans of watching creatinine and pushing time off vent. Hamlet Long MD FACS quality lab technician [facility] at [facility] Hamlet Long MD Jul 30, 2016 07:47
[2016-07-30] MEDS: CHLORHEXIDINE 0.12% (ORAL KIT) 15 ML CUP MT SCH ×2 (08:00→21:22)
[2016-07-30] MEDS: LACTULOSE SYRUP 20 GM/30 ML CUP PO SCH ×4 (08:40→21:20)
[2016-07-30] MEDS: SODIUM CHLORIDE 0.9% FLUSH 10 ML FLUSH IVF SCH (09:00)
[2016-07-30] MEDS: POLYETHYLENE GLYCOL 17 GM PKG OG-TUBE SCH ×2 (09:00→21:21)
[2016-07-30] MEDS: DOCUSATE SODIUM 50 MG/SENNA 8.6 MG TAB PO SCH ×2 (09:00→21:23)
[2016-07-30] MEDS: CHLOROTHIAZIDE SOD 500 MG VIAL IV SCH (09:00)
[2016-07-30] MEDS: THIAMINE HCL 100 MG TAB PO SCH (09:58)
[2016-07-30] MEDS: CALCIUM ACETATE 667 MG CAP PO SCH ×3 (09:58→18:00)
[2016-07-30] MEDS: ACETAMINOPHEN 325 MG TAB PO PRN (09:58)
[2016-07-30] MEDS: QUEtiapine FUMARATE 25 MG TAB PO SCH (09:58)
[2016-07-30] MEDS: ASPIRIN 81 MG CHEW TAB CHEW SCH (09:58)
[2016-07-30] MEDS: MULTIVITAMIN TAB PO SCH (09:58)
[2016-07-30] MEDS: HYDROmorphone HCL PF 1 MG/ML VIAL IV PUSH PRN ×2 (09:59→14:49)
[2016-07-30] MEDS: HEPARIN SODIUM - SQ 10,000 UNITS/ML VIAL SQ SCH ×2 (09:59→21:20)
[2016-07-30] MEDS: PANTOPRAZOLE SODIUM 40 MG VIAL IV SCH (09:59)
[2016-07-30] MEDS: BUMETANIDE INJ 1 MG/4 ML VIAL IV PUSH SCH ×2 (09:59→21:21)
--- NOTE | 2016-07-30 14:19 | HHI.HCPN ---
Reason for visit a. To assist with evaluation and management of symptoms including: pain, dyspnea, encephalopathy b. To assist medical decision maker(s) with: better understanding of current medical conditions; weighing benefits/burdens of medical treatment options; making medical treatment decisions. . Subjective/Interval History Patient seen and assessed in room 1304 s/p TEVAR and LLE fasciotomy. Patient was extubated on 07/24/16 - tracheostomy placed for airway protection yesterday 07/25/16. Patient remains on mechanical ventilator today, FiO2 weaned to 30%. Patient continues to be intermittently febrile, Tmax overnight when a 101.1. Blood culture: no growth in 1 day. Urine culture growing yeast. WBC trending downward at 11.3 on 07/29/16. Follow-up chest x-ray this morning showed a small infiltrate in the right lung base. Patient remains lethargic, opens eyes briefly to verbal stimuli. Does not respond to questions, does not follow commands. Showing no signs of nonverbal pain. PRN fentanyl is available hourly for pain management. PRN Oxycodone and Dilaudid have been ordered. Oxycodone 10 mg PO q 4 hours for pain level I6 and Dilaudid 1mg IV q4 hours for pain level 7-10 or when not taking PO. Patient 24 hour requirements- Dilaudid x 3; Oxycodone x 1. Renal functioning remains relatively the same. Nephrology continues to follow, monitoring UOP. . Family/friend interactions Phone call placed to patient's brother, Luis. He feels the patient has plateaued and is concerned "this may be as good as it gets". Patient spoke with Dr. Long yesterday, they agreed to reevaluate the patient on Friday and set up a family meeting at that time if it is indicated. Advance Directives Living Will: Never completed Health Care Surrogate: Never completed Durable Power of Manager Of Hospital: Never completed Advance Directive Specifics Date completed: Advance directives never completed. . Health Care Surrogate(s): No written designation of health care surrogacy. . Documented care wishes: No written documentation of health care goals/preferences. . Objective Vital Signs Date Time Temp Pulse Resp B/P Pulse Ox O2 Delivery O2 Flow Rate FiO2 07/30/16 12:00 100.8 84 12 151/65 97 07/30/16 12:00 84 07/30/16 12:00 30 07/30/16 10:00 90 07/30/16 08:00 100.6 83 24 158/71 96 07/30/16 08:00 30 07/30/16 08:00 82 07/30/16 07:46 93 30 07/30/16 07:00 95 Mechanical Ventilator 50 Trach Collar 07/30/16 06:00 72 07/30/16 04:13 97 30 07/30/16 04:00 99.9 72 26 131/58 97 07/30/16 04:00 72 07/30/16 04:00 30 07/30/16 02:00 82 07/30/16 01:11 92 30 07/30/16 00:00 99.7 76 24 161/72 93 07/30/16 00:00 30 07/30/16 00:00 76 07/29/16 22:00 77 07/29/16 20:04 97 30 07/29/16 20:00 67 07/29/16 20:00 Mechanical Ventilator 30 07/29/16 20:00 30 07/29/16 20:00 98.6 67 141/72 96 07/29/16 18:00 74 07/29/16 16:05 98 30 07/29/16 16:00 76 07/29/16 16:00 101.0 75 14 139/63 96 07/29/16 16:00 30 07/29/16 14:00 71 Intake & Output 07/30/16 07/30/16 07:00 19:00 Intake Total 760 ml Output Total 1550 ml Balance -790 ml Intake Oral 0 ml IV Total 224 ml Tube Feeding 536 ml Output Urine Total 1500 ml Drainage Total 50 ml # Bowel Movements 2 . Physical Exam CONSTITUTIONAL/GENERAL: This is an adequately nourished patient s/p tracheostomy this morningon mechanical ventilator. TUBES/LINES/DRAINS: Tracheostomy, OGT, dignishield, Russell catheter, SCD 1, soft restraints 2, cholecystostomy, PIV 2 SKIN: Incisions on left lower extremity without S/S of infection Skin is warm to touch. EYES: Pupils equal and round, and reactive. ENT: Nose without bleeding or purulent drainage. NECK: Trachea midline. CARDIOVASCULAR: Having runs of SVT RESPIRATORY/CHEST: S/p tracheostomy, weaning off mechanical ventilator. FiO2 30 % GASTROINTESTINAL: Abdomen distended, firm. Cholecystostomy draining brownish fluid GENITOURINARY: Without palpable bladder distension. Russell catheter in place. MUSCULOSKELETAL: No obvious deformities. Trace edema in upper and lower extremities. LYMPHATICS: Not examined. NEUROLOGICAL: Lethargic, briefly opens eyes to verbal stimuli. Does not track. Does not respond to questions. Does not follow commands. PSYCHIATRIC: Unable to assess due to patient's decreased level of responsiveness. .. Diagnostic Tests Laboratory Laboratory Tests Test 07/28/16 07/29/16 07/29/16 03:55 03:40 10:45 Sodium Level 151 MEQ/L 151 MEQ/L (136-145) (136-145) Potassium Level 3.5 MEQ/L 3.4 MEQ/L (3.5-5.1) (3.5-5.1) Chloride Level 113 MEQ/L 112 MEQ/L (98-107) (98-107) Carbon Dioxide Level 27.0 MEQ/L 30.4 MEQ/L (21.0-32.0) (21.0-32.0) Anion Gap 11 MEQ/L (5-15) 9 MEQ/L (5-15) Blood Urea Nitrogen 103 MG/DL 100 MG/DL (7-18) (7-18) Creatinine 4.02 MG/DL 4.35 MG/DL (0.60-1.30) (0.60-1.30) Estimat Glomerular Filtration 15 ML/MIN (>89) 14 ML/MIN (>89) Rate Random Glucose 130 MG/DL 128 MG/DL (74-106) (74-106) Calcium Level 9.2 MG/DL 9.4 MG/DL (8.5-10.1) (8.5-10.1) White Blood Count 11.3 TH/MM3 (4.0-11.0) Red Blood Count 2.92 MIL/MM3 (4.50-5.90) Hemoglobin 9.1 GM/DL (13.0-17.0) Hematocrit 28.1 % (39.0-51.0) Mean Corpuscular Volume 96.2 FL (80.0-100.0) Mean Corpuscular Hemoglobin 31.2 PG (27.0-34.0) Mean Corpuscular Hemoglobin 32.4 % Concent (32.0-36.0) Red Cell Distribution Width 15.1 % (11.6-17.2) Platelet Count 455 TH/MM3 (150-450) Mean Platelet Volume 7.5 FL (7.0-11.0) Neutrophils (%) (Auto) 62.7 % (16.0-70.0) Lymphocytes (%) (Auto) 14.5 % (9.0-44.0) Monocytes (%) (Auto) 14.5 % (0.0-8.0) Eosinophils (%) (Auto) 5.0 % (0.0-4.0) Basophils (%) (Auto) 3.3 % (0.0-2.0) Neutrophils # (Auto) 7.1 TH/MM3 (1.8-7.7) Lymphocytes # (Auto) 1.6 TH/MM3 (1.0-4.8) Monocytes # (Auto) 1.6 TH/MM3 (0-0.9) Eosinophils # (Auto) 0.6 TH/MM3 (0-0.4) Basophils # (Auto) 0.4 TH/MM3 (0-0.2) CBC Comment DIFF FINAL Differential Comment Magnesium Level 2.8 MG/DL (1.5-2.5) Total Bilirubin 1.3 MG/DL (0.2-1.0) Aspartate Amino Transf 45 U/L (15-37) (AST/SGOT) Alanine Aminotransferase 27 U/L (12-78) (ALT/SGPT) Alkaline Phosphatase 95 U/L (45-117) Total Protein 7.5 GM/DL (6.4-8.2) Albumin 1.9 GM/DL (3.4-5.0) Urine Color YELLOW (YELLW/STRAW) Urine Turbidity HAZY (CLEAR) Urine pH 6.0 (5.0-8.5) Urine Specific [place] 1.017 (1.002-1.035) Urine Protein 30 mg/dL (NEG-TRACE) Urine Glucose (UA) NEG mg/dL (NEG) Urine Ketones NEG mg/dL (NEG) Urine Occult Blood MOD (NEG) Urine Nitrite NEG (NEG) Urine Bilirubin NEG (NEG) Urine Urobilinogen LESS THAN 2.0 MG/DL (LESS THAN 2.0) Urine Leukocyte Esterase LARGE (NEG) Urine RBC 152 /hpf (0-3) Urine WBC 58 /hpf (0-5) Urine Bacteria FEW /hpf (NONE) Urine Mucus FEW /lpf (OCC) Urine Yeast with Hyphae FEW (NONE) Urine Yeast (Budding) MANY (NONE) Microscopic Urinalysis Comment CATH-CULTURE IND . Result Diagram: 07/29/16 0340 07/29/16 0340 Microbiology Microbiology Date/Time Procedure Status Source Growth 07/29/16 09:40 Gram Stain - Final Resulted Sputum Endotracheal 07/29/16 09:40 Sputum Culture - Preliminary Resulted Sputum Endotracheal IMMATURE GROWTH - REINCUBATE 07/29/16 10:45 Urine Culture - Preliminary Resulted Urine Catheterized Urine Yeast-Id To Follow 07/29/16 13:35 Aerobic Blood Culture - Preliminary Resulted Blood Peripheral NO GROWTH IN 1 DAY 07/29/16 13:35 Anaerobic Blood Culture - Preliminary Resulted Blood Peripheral NO GROWTH IN 1 DAY 07/29/16 13:40 Aerobic Blood Culture - Preliminary Resulted Blood Peripheral NO GROWTH IN 1 DAY 07/29/16 13:40 Anaerobic Blood Culture - Preliminary Resulted Blood Peripheral NO GROWTH IN 1 DAY Imaging Last 72 hours Impressions Chest X-Ray 07/30/16 0600 Signed Impressions: Service Date/Time: Saturday, July 30, 2016 05:22 - CONCLUSION: Small infiltrate right lung base. Tubes and catheter stable Daniel Casper MD . Procedures 07/04/16: Right radial arterial line placement 07/04/16: Lumbar drain placement 07/04/16: Right IJ cortis placement 07/04/16: TEVAR and LLE fasciotomy. 07/06/16: Extubation 07/07/16: Reintubation 07/08/16: Platelet transfusion 07/08/16: Lumbar drain removed 07/11/16: Right IJ cortis removed 07/11/16: Left IJ CVL placement 07/24/16: Extubated 07/25/16: Tracheostomy and bronchoscopy . Assessment and Plan Disease Oriented Problem List: (1) Dissecting aneurysm of thoracic aorta, Braxton type B Comment: s/p TAVER procedure . (2) Delirium (3) Respiratory failure (4) NSTEMI (non-ST elevated myocardial infarction) (5) Stroke Comment: MRI shows "small punctate infarcts involving the left cerebellar hemisphere and deep white matter bilaterally " in a background of amyloid angiopathy. . (6) Acute kidney insufficiency Comment: Probably a result of ischemic injury from dissection. . (7) HTN (hypertension) (8) Hepatitis C (9) Elevated troponin (10) Cholecystitis Comment: s/p cholecystostomy tube placement. . (11) COPD (chronic obstructive pulmonary disease) Symptom Scale: (1) Pain 0-10 Scale: Unable to quantify Comment: Possible causes of pain include postop surgical pain, circulation, edema, ETT, OG, invasive lines, immobility, bedbound status etc. (2) Dyspnea 0-10 Scale: Unable to quantify Comment: Patient was extubated 07/24/16. Status post tracheostomy and bronchoscopy yesterday 07/25/16. Patient remains on mechanical ventilator, FiO2 30%. (3) Encephalopathy Comment: Lethargic. Opens eyes briefly to verbal stimuli. Does not track. Does not respond to questions or follow commands. Pertinent Non-Medical Issues Psychosocial: Patient was born in [place] and moved to [place] as young adult. Patient has a long history of polysubstance abuse which includes EtOH consumption and crack cocaine. The patient continues to drink 8-12 beers daily. The patient has never been and has no children. His mother and 2 of his siblings live locally and a third brother lives in [place]. Patient's mother states patient has been diagnosed with oppositional defiant disorder and is a history of medical noncompliance. Prior to his hospitalization, the patient was living with an elderly gentleman and they were helping each other. 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 The patient received disability approximately 1 week prior to this hospitalization. Spiritual: Confucianism nicolas Legal: Per [place] statutes, health care proxy decision making would fall to the patient's mother. Family members state while in the ED at [facility] patient identified his brother (Luis) as his medical decision maker, apparently the appropriate documentation and was not completed. Family members are in agreement and working together on patient's medical decisions. However the patient's mother and 2 other siblings (Olga and Jean Carlos) has opted out of decision making role, deferring to brother Luis. Ethical issues impacting care: No known ethical issues impacting care at this time . Important Contacts Nathalia Izquierdo, mother: [phone] Brother (Luis); [phone] [id number] (Chanda); [phone] Sister (Olga); [phone] Brother (Jean Carlos): [phone] . Prognosis Patient is a 60 year old man who was admitted with a type B aortic dissection. He is currently critically ill status post with TAVER and LLE fasciotomy. His past medical history is significant for polysubstance abuse (EtOH/crack cocaine) , HTN, CAD, COPD, hepatitis C/cirrhosis as well as medical noncompliance The patient currently remains orotracheally intubated and sedated. BUBBA - patient likely sustained severe ischemic injuries to both kidneys secondary to dissection involving renal arteries. It is certainly possible that this patient will be successfully extubated and upcoming days, eventually being stable enough to be discharged to SNF. However given the patient's past medical history, noncompliance, and this recent acute event, the patient has a strong probability into new decline and/or complications. . Code Status: Full Code Plan * FULL CODE * Decision-making: Per [place] statutes, health care proxy decision making would fall to the patient's mother. Family members state while in the ED at [facility] patient identified his brother (Luis) as his medical decision maker, apparently the appropriate documentation and was not completed. Family members are in agreement and working together on patient's medical decisions. However the patient's mother and 2 other siblings (Olga and Jean Carlos) has opted out of decision making role, therefore decision-making multiple to the patient' s brother Luis. * Goals: Aggressive at this time. * Symptom managementpain: Possible causes of pain include postop surgical pain , circulation, edema, tracheostomy ,OG, invasive lines, immobility, bedbound status etc. patient showing no nonverbal signs or symptoms of pain. PRN fentanyl is available hourly for pain management. PRN Oxycodone and Dilaudid have been ordered. Oxycodone 10 mg PO q 4 hours for pain level I6 and Dilaudid 1mg IV q4 hours for pain level 7-10 or when not taking PO. Patient 24 hour requirements- Dilaudid x 3; oxycodone 1 * Symptom managementencephalopathy: Lethargic. Opens eyes briefly to verbal stimuli. Does not track. Does not respond to questions or follow commands. * Managementdyspnea: Patient was extubated 07/24/16. Status post tracheostomy and bronchoscopy yesterday 07/25/16. Attempting to wean from mechanical ventilator, FiO2 30%. * Discussed with patient's nurse. * Phone call placed to patient's brother, Luis. He feels the patient has plateaued and is concerned "this may be as good as it gets". Patient spoke with Dr. Long yesterday, they agreed to reevaluate the patient on Friday07/31/16 and set up a family meeting at that time if it is indicated. * Palliative care will continue to follow this patient throughout his hospitalization to establish trust, assist with symptom management and clarification of medical treatment goals. . Attestation To help prompt me to consider important information that might be impacting today's encounter and assessment, information from prior notes written by myself or my colleagues may have been "brought forward" into today's note. My signature on this note, however, is an attestation that I personally performed the exam, history, and/or decision-making noted today, and, unless otherwise indicated, the interactions with patient, family, and staff as well as the review of records all occurred today. I also attest that the listed assessment and stated plan reflect my best clinical judgment today based on the combination of historical information, prior notes, and today's exam/ interactions. When time spent is documented, it refers only to time spent today by the signer, or if indicated, combined time spent today by collaborating physician/nurse practitioner. . Vikki Liu Jul 30, 2016 14:19
[2016-07-30 14:43] LABS: POTASSIUM 3.7 MEQ/L (3.5-5.1)
--- NOTE | 2016-07-30 17:40 | HHI.CCPN ---
Subjective Remarks/Hospital Course Hospital Course: This is a 60-year-old male who is transferred emergently from outside hospital with per report and acute type B dissection. Apparently the patient told his family member today that he had searing back pain and was taken to the emergency department. A CT of the chest at that time showed a type B dissection. The patient was intubated the outside facility and transferred to [facility] for emergent evaluation management. Unfortunately, the patient is unable to provide any additional history at this time. I was at bedside and the patient arrived to the surgical intensive care unit. Dr. Long and I both evaluated the patient and when he arrived he was in a junctional bradycardia with heart rate in the 40s. He had obvious ST depressions in lead II on telemetry. Our initial concern was that we have extended the dissection into the type A dissection. We also did not have any CT of the abdomen and pelvis. On her physical exam, the patient had a cold left foot without pulses. I emergently placed a right radial arterial line, please see separate procedure note for details. We then went emergently to the CT scanner for repeat CT aortogram of the chest abdomen and pelvis to investigate the extent to which the dissection has extended. The CT aortogram demonstrated that this was still a type B dissection with the celiac artery being significantly compressed and possibly comprising flow from the dissection flap. The right kidney appears to be perfused off the false lumen and not the true lumen, and there is no contrast going down the left femoral artery. Patient was then brought back to the intensive care unit. His blood pressure is controlled on nicardipine infusion for goal systolic blood pressure less than 110. A 12-lead EKG at that time was done which demonstrated significant ST depressions in the inferior leads as well as the far lateral leads consistent with subendocardial ischemia. At the request of Dr. Long in anticipation of going emergently to the operative theater, I placed a lumbar drain for spinal protection, please see separate procedure note for details. At that point the patient was taken emergently to the operating room. Critical care medicine is been consulted to evaluate and manage the patient's type B dissection, hemodynamic's, acute hypoxic respiratory failure. 07/05: taken to OR for TEVAR overnight. lactate cleared overnight. uop adequate. Cr elevated to 1.8 this AM. He is on Coreg 50 mg by mouth 07/06: oliguric overnight. Cr rising. however, lactate cleared. other markers of end-organ perfusion better. likely ATN from time of dissection. awake following commands. moving bilateral lower extremities. clear CSF in lumbar drain. on intermittent norepinephrine to maintain spinal perfusion. 07/07: extubated yesterday, followed commands, good pulmonary mechanics. However , after extubation, became acutely delirious- probable combination of etoh withdraw and icu delirium, some pain. mental status waxed and waned throughout the day and ultimately reintubated overnight for worsening waning mental status and hypoxia. post-extubation it has been documented that he continues to move his bilateral lower extremities to painful stimuli and spontaneously. does not follow commands this morning. troponins downtrending. cardiology evaluated the patient yesterday, formal note pending, but per my conversation, plan was for ongoing conservative management as we are doing, and plan for nuc med stress test when stable. 07/08: still moving bilateral LEs spontaneously and w/d to pain. remains intubated with persistent agitation. hypoxia improving. platelets continue to fall, likely a combination of consumption, BUBBA, liver disease. will give unit of platelets prior to d/c lumbar drain. 07/09: Troponin spill resolving without evidence of ongoing injury. Major obstacle is agitation related to ETOH withdrawal followed by necessary sedation. Continue to work toward vent weaning. 07/10: Afebrile. Not following commands. Continues to be agitated for reasons above. Tolerating tube feeding at goal rate. Creatinine hopefully has plateaued. 07/11: CURRENT TEMPERATURE 100.2. MRI brain yesterday revealed left cellular restricted diffusion area likely acute infarct with small punctate areas within the coronal radiata possibly embolic event. Patient is arousable and will move all 4 extremities but not following commands. Left foot remains cool. Tolerating tube feeding. No bowel movement times 4 days. 07/12: Tmax 99.7. Currently 99. Noted right vertebral/distal left MCA/mid right THRESHING MACHINE OPERATOR stenosis on imaging yesterday. Central line exchange from right to left side due to bleeding. No bowel movement for tolerating tube feedings with very low residuals. Still wean sedation. 07/13: Currently afebrile. Patient with soap side enema yesterday with's positive BM 3 overnight.. Go containment device currently in place. Currently hypertensive/when necessary labetalol and clonidine will be added. Noted liberalize SCI around 120 systolic blood pressure. Arousable on the ventilator and moves all 4 extremities spontaneously but not following commands. 07/14: Tmax 99.3. No significant bowel movement overnight. Currently hypotensive. Noted SCI around 120 systolic blood pressure recommended by vascular surgery. Arousable on ventilator on sedation vacation moves all 4 extremity spontaneously but not to commands. 07/15: Afebrile. -2775 cc stool past 24 hours. Currently hypertensive. Bradycardic. Requiring antihypertensives. Plan for percutaneous cholecystostomy tube today. 07/16: Remains afebrile. CXR clearing. Renal injury without change, spontaneous urine acceptable. 07/17: No material change. Tolerates CPAP. 07/18: Family is talking with palliative Care service. 07/19: Will try CPAP with decreasing pressure support. DNR status clouds issue for extubation. 07/20: Failed SBT yesterday, could not tolerate lower pressure support. 07/21: Tolerates 5/5 SBT for several hours. Unresponsive, no eye opening today. No improvement in motor function. Extensive discussion with his brother Luis yesterday. Family is pretty consolidated in their wish to withdraw artificial support. Hopefully we can discuss options with all principals Friday. 07/22: Nods head accurately to questions today. Moves 4 limbs to command, left is minimal. 07/23: Patient nods head yes to wanting re-intubation and trach if necessary. He nods "yes" to wanting us to do everything to help him live. 07/24: Still wants trial extubation and reintubation if necessary. 07/25: Extubated 24 hours ago. Sleepy and accumulating secretions in upper airway. He will require a protected airway. His interaction with me over the past three days have all indicated that he wants us to perform a tracheostomy if he fails the extubation trial. He confirms his desire to live and remain full code status. 07/26: Stronger, more alert on trach ventilation. Dobbhoff or PEG mcfp? 07/27: Renal function continues to improve. More alert, interactive. 07/28: Remains on mechanical ventilation via tracheostomy. Awake and alert. 07/29: Spiked temperature 101.3 last night. Tolerated T piece for 2 hours yesterday. Subjective: 07/30: still somnolent. urine growing budding yeast. Objective Vital Signs Date Time Temp Pulse Resp B/P Pulse Ox O2 Delivery O2 Flow Rate FiO2 07/30/16 17:14 100 30 07/30/16 16:00 75 07/30/16 16:00 99.9 15 109/51 07/30/16 07:00 Mechanical Ventilator Trach Collar 07/28/16 16:01 5.00 Intake and Output 07/29/16 07/29/16 07/30/16 08:00 16:00 00:00 Intake Total 535 ml 465 ml 441 ml Output Total 890 ml 150 ml 890 ml Balance -355 ml 315 ml -449 ml Result Diagram: 07/29/16 0340 07/30/16 1420 Imaging Last Impressions Chest X-Ray 07/15/16 06 Signed Impressions: Service Date/Time: Friday, July 15, 2016 04:38 - CONCLUSION: Some worsening of the bilateral pulmonary infiltrates. Joe Appiah Jr., MD Abdomen X-Ray 07/15/16 06 Signed Impressions: Service Date/Time: Friday, July 15, 2016 04:41 - CONCLUSION: No dilated bowel to suggest an obstruction. Joe Appiah Jr., MD Gall Bladder Ultrasound 07/14/16 0000 Signed Impressions: Service Date/Time: Thursday, July 14, 2016 11:36 - CONCLUSION: Abnormal gallbladder as described above. Cholecystitis would be consideration. The patient is only minimally tender around the gallbladder. Donis Hernandez MD FACR Abdomen/Pelvis CT 07/13/16 0000 Signed Impressions: Service Date/Time: Wednesday, July 13, 2016 17:29 - CONCLUSION: 1. Abnormal appearance of the gallbladder with wall thickening and possible pericholecystic fluid. No calcified stones. Recommend hepatobiliary tract scan to evaluate for acalculus cholecystitis. 2. Bilateral lower lung consolidation and bilateral pleural effusions. 3. Moderate amount of stool in the left colon. 4. Bilateral nonobstructing renal stones. Joe De Leon MD Neck Magnetic Resonance Angiography 07/11/16 0000 Signed Impressions: Service Date/Time: June 14:29 - CONCLUSION: 1. No evidence of carotid stenosis. 2. Short segment high-grade stenosis involving the mid right vertebral artery greater than 80 with a patent left vertebral artery Abhijeet Salinas MD Head Magnetic Resonance Angiography 07/11/16 0000 Signed Impressions: Service Date/Time: June 14:29 - CONCLUSION: 1. Evidence of atherosclerotic disease with focal distal left MCA branch stenosis and focal mid right THRESHING MACHINE OPERATOR stenosis. 2. No proximal high grade stenosis or aneurysm. Bladimir Gasca MD Brain MRI 07/10/16 0000 Signed Impressions: Service Date/Time: Sunday, July 10, 2016 15:03 - CONCLUSION: 1. Small punctate infarcts involving the left cerebellar hemisphere and deep white matter bilaterally in this patient with a background of amyloid angiopathy. No acute hemorrhage is seen. Abhijeet Salinas MD Renal Ultrasound 07/08/16 0000 Signed Impressions: Service Date/Time: Friday, July 08, 2016 17:16 - CONCLUSION: 1. Resistive indices could not be obtained on the right side into the patient's body habitus and shadowing bowel gas. Left renal artery resistive indices are within normal limits. 2. No significant abdominal aortic aneurysm identified status post repair. 3. Probable 7 mm nonobstructing midpole right renal calculus. 4. Tiny left lower pole cyst measuring 1.5 cm. Hamlet Vinson MD Aorta CTA 07/04/16 0000 Signed Impressions: Service Date/Time: June 19:53 - CONCLUSION: 1. Extensive aortic dissection extending from the proximal transverse aorta just distal to the origin of the left subclavian artery. Dissection extends distally through both superficial femoral arteries. 2. Occlusion of the right renal artery with absent perfusion of the right kidney. Dissection of the left renal artery with absent perfusion of the anterior left kidney. 3. 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 4. Occlusion of left external iliac artery and right internal iliac artery. 5. ET tube in satisfactory position. Dependent consolidation in both lungs. Probable mild liver cirrhosis. No obstruction or free fluid. Russell catheter in decompressed bladder. See above discussion. Rodriguez Jeff MD Objective Remarks GENERAL: 60-year-old male. HEENT: Normocephalic. Atraumatic. Pupils 3 mm, reactive, NECK: Tracheostomy in place CHEST: On mechanical ventilation via tracheostomy, Clear to auscultation, no wheezes rales or rhonchi. More comfortable pattern. CARDIOVASCULAR: RRR. S1, S2 no S4. No m,r. No JVD ABDOMEN: Non-distended, soft. No rigidity. Active bowel sounds. MUSCULOSKELETAL: Distal pulses 2+. Left leg weak/numb. NEUROLOGICAL: somnolent, Withdraws both upper and LEs to noxious stimuli. Tracks with eyes. Protects airway A/P Assessment and Plan Neuro/Psych: Left cerebellar lacunar infarct Right vertebral/distal left MCA and mid right THRESHING MACHINE OPERATOR stenosis Agitated Delirium Alcohol Withdrawal - up to 15 beers daily Alcohol abuse History of polysubstance abuse including crack cocaine Lumbar drain placement - removed 07/08 Insomnia On melatonin 5 mg at night as needed for insomnia Daily thiamine 100 mg daily for EtOH use MRI brain 07/10 revealed left cerebellar cystic diffusion region with small punctate areas in the suarez radiata likely embolic. Possible amyloid. MRA head/neck revealed right vertebral 80% short segment stenosis, distal left MCA and mid right THRESHING MACHINE OPERATOR stenosis EEG 07/10 revealed no seizure activity Delirium/Withdraw regimen: --d/c tizanidine. --d/c seroquel --Haldol 5mg iv q4h prn for breakthrough agitation. --d/c ativan -- add Provigil 200mg po daily for alertness -- decrease dilaudid to 0.25mg iv q4h prn. -- continue oxycodone 10mg po q4h prn. -- Okayed with Dr. Long for aspirin 324 mg daily Respiratory: Acute hypoxic and hypercarbic respiratory failure -- PRVC 18/550/0.8/5/40 Vent bundle. Daily C Pap/T piece trials Bronchodilator therapy every 6 hours and albuterol every 2 hours when needed Head of bed 30 Wean FiO2 for goal SPO2 greater than 92% - s/p Trach 07/25. -- daily trach collar trials. Cardiovascular: Postop T4 with left lower x-ray fasciotomy secondary to type B aortic dissection with renal/visceral and left lower extreme L perfusion Thoracic endovascular stent with left lower extremity fasciotomy/ compartments with [address] Long Acute type B dissection- secured Type II NSTEMI- Demand Ischemia- resolving Junction bradycardia- resolved. Lactic Acidosis- resolved. -- elevated troponins likely combination of demand ischemia and poor renal clearance -- Cardiology: Dr. Mondragon following. plan for conservative management with myocardial perfusion scan when stable. -- 2d echo: EF 55%, no RWMA. 2-D echo 07/08 repeat EF 60-65%. Mild MR. [facility] dilated. RENO 49 mmHg --As needed labetalol for systolic blood pressure greater than 160 Renal: Acute kidney injury Acute Tubular Necrosis Right and left nephrolithiasis Likely secondary to hypoperfusion of the kidney from dissection, ATN -- FENa 07/07 1.2% consistent with ATN. Urine eos negative. -- Strict I/Os Russell placement to be maintained --nephrology consult 07/08 appreciated. No indication for dialysis at this point Avoid nephrotoxins drugs BUN/creatinine. Stabilized FEN/GI: Colonic ileus Acute protein calorie malnutrition- mild Non-anion gap metabolic acidosis- resolved. Hyperphosphatemia Hyper-magnesium Hyponatremia History of peptic ulcer disease Hepatitis C -from IV drug use Elevated AST TF: Nepro at goal 40 cc an hour --nutrition consult. --Currently on PhosLo 2668 mg 3 times a day for hyperphosphatemia Protonix for GI prophylaxis. Stephie-Colace twice a day for bowel regimen. MiraLAX twice a day lactulose 4 times daily. KUB revealed 8 cm transverse colon ileus. Positive results with enema. CT abdomen/those revealed wall thickening or gallbladder. 2 right midpole no obstructing kidney stones, left circumflex continues on, to semi-bilateral pleural effusions and large amount stool left colon. s/p percutaneous cholecystostomy tube for gallbladder 07/15. Not a surgical candidate at this time. daily bmp, phos Heme/ID: Leukocytosislikely reactive Acute Blood Loss Anemia Thrombocytopenia Daily CBC Febrile Daily coags --thrombocytopenia is likely multifactorial from liver disease, consumptive from critical illness and dissection. Blood cultures/sputum/urine ordered 07/11 no growth to date Pancultured 07/29 for fevers. --stop zosyn, unclear indication. will start empiric abx if he clinically worsens. Endocrine: Hyperglycemia of critical illness -- SSI, medium scale, every 6 hours Prophylaxis: GI Prophylaxis Protonix 40 mg IV every 24 DVT Prophylaxis -- SCDs/heparin . Lines: 07/13 -radial arterial line - out --07/04-07/11 right IJ cortis -- Left IJ CVL 07/11 - out Dr. Campos spoke at length with patient's brother Luis after the procedure and we established a plan to watch him closely while he's off all sedation and reassess his mental status. Overall impression: somnolent today. Renal function slowly improving. Comfortable after trach. New fever-pancultures ordered 07/29. ? SIRS following trach vs sepsis Dennis Rich MD Jul 30, 2016 17:40
[2016-07-30] MEDS: SODIUM CHLOR 0.9% 1000 ML INJ 1,000 ML IV SCH (19:15)
[2016-07-30] MEDS: MELATONIN 5 MG TAB PO SCH (21:21)
[2016-07-30] MEDS: FAMOTIDINE 40 MG/5 ML LIQ 50 ML BTL NG SCH (22:58)
[2016-07-31] VITALS (16 sets, daily range): BP systolic 144–168; BP diastolic 67–77; PULSE 71–101; RESP 16–24; TEMP 98.8–100.6; O2SAT 94–99
[2016-07-31] MEDS: oxyCODONE HCL ORAL CONC 20 MG/ML SYRINGE PO PRN ×2 (03:09→10:32)
[2016-07-31] MEDS: CHLORHEXIDINE GLUCONATE 2 % 1 PACK (2 CLOTHS) TOP SCH (04:00)
[2016-07-31 04:40] LABS: HEMATOCRIT 29.7 % (39.0-51.0); MEAN CELL VOLUME 93.4 FL (80.0-100.0); MEAN CORPUSCULAR HEMOGLOBIN 31.9 PG (27.0-34.0); MEAN CORPUSCULAR HGB CONC 34.2 % (32.0-36.0); PLATELET COUNT 503 TH/MM3 (150-450); RED BLOOD COUNT 3.18 MIL/MM3 (4.50-5.90); REVIEW FLAG FINAL; WHITE BLOOD COUNT 16.1 TH/MM3 (4.0-11.0)
[2016-07-31 05:03] LABS: BICARBONATE 30.4 MEQ/L (21.0-32.0); POTASSIUM 3.6 MEQ/L (3.5-5.1)
[2016-07-31] MEDS: INSULIN NovoLIN REGULAR SUPPLEMENTAL SCALE SQ SCH ×5 (06:00→23:09)
[2016-07-31] MEDS: ARTIFICIAL TEARS OPTH SOLN 15 ML BTL EACH EYE SCH ×3 (06:06→21:38)
--- NOTE | 2016-07-31 07:24 | PD.VS.PN ---
Subjective POD #: [phone] Procedure(s): TEVAR, L LE fasciotomies for acute TBAD with visceral/renal/LLE malperfusion Subjective/Hospital Course Good UOP Creat up to 4.5 today Somnolent but MENSAH Objective Vitals/I&O Date Time Temp Pulse Resp B/P Pulse Ox O2 Delivery O2 Flow Rate FiO2 07/31/16 06:00 81 07/31/16 04:12 99 30 07/31/16 04:00 100.4 71 18 165/77 98 07/31/16 04:00 30 07/31/16 04:00 71 07/31/16 02:00 93 07/31/16 01:11 97 30 07/31/16 00:00 30 07/31/16 00:00 100.6 85 20 151/74 95 07/31/16 00:00 85 07/30/16 22:00 80 07/30/16 20:00 70 07/30/16 20:00 30 07/30/16 20:00 100.6 73 18 113/56 97 07/30/16 19:49 100 40 07/30/16 19:35 96 30 07/30/16 19:00 96 Mechanical Ventilator 30 Trach Collar 07/30/16 18:00 73 07/30/16 17:14 100 30 07/30/16 16:00 30 07/30/16 16:00 75 07/30/16 16:00 99.9 65 15 109/51 99 07/30/16 14:00 78 07/30/16 12:00 100.8 84 12 151/65 97 07/30/16 12:00 84 07/30/16 12:00 30 07/30/16 10:00 90 07/30/16 08:00 100.6 83 24 158/71 96 07/30/16 08:00 30 07/30/16 08:00 82 07/30/16 07:46 93 30 07/31/16 07/31/16 07/31/16 07:00 15:00 23:00 Intake Total 418 ml Output Total 760 ml Balance -342 ml Exam: MENSAH, though R more than L L leg incisions ok Palpable pulses Laboratory Laboratory Tests Test 07/30/16 07/31/16 14:20 03:41 Potassium Level 3.7 3.6 Magnesium Level 3.0 White Blood Count 16.1 Red Blood Count 3.18 Hemoglobin 10.2 Hematocrit 29.7 Mean Corpuscular Volume 93.4 Mean Corpuscular Hemoglobin 31.9 Mean Corpuscular Hemoglobin 34.2 Concent Red Cell Distribution Width 15.0 Platelet Count 503 Mean Platelet Volume 8.2 Sodium Level 149 Chloride Level 110 Carbon Dioxide Level 30.4 Anion Gap 9 Blood Urea Nitrogen 114 Creatinine 4.51 Estimat Glomerular Filtration 13 Rate Random Glucose 139 Calcium Level 10.1 Phosphorus Level 2.2 Date/Time Procedure Status Source Growth 07/29/16 13:40 Aerobic Blood Culture - Preliminary Resulted Blood Peripheral NO GROWTH IN 1 DAY 07/29/16 13:40 Anaerobic Blood Culture - Preliminary Resulted Blood Peripheral NO GROWTH IN 1 DAY 07/29/16 10:45 Urine Culture - Preliminary Resulted Urine Catheterized Urine Yeast-Id To Follow 07/29/16 09:40 Gram Stain - Final Resulted Sputum Endotracheal 07/29/16 09:40 Sputum Culture - Preliminary Resulted Sputum Endotracheal IMMATURE GROWTH - REINCUBATE Assessment and Plan Assessment: (1) Dissecting aneurysm of thoracic aorta, [place]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 May need to discuss skilled nursing care facilities with family. Hamlet Long MD FACS body technician/painter [facility] Hamlet Long MD Jul 31, 2016 07:23
--- NOTE | 2016-07-31 07:52 | HHI.CCPN ---
Subjective Remarks/Hospital Course Hospital Course: This is a 60-year-old male who is transferred emergently from outside hospital with per report and acute type B dissection. Apparently the patient told his family member today that he had searing back pain and was taken to the emergency department. A CT of the chest at that time showed a type B dissection. The patient was intubated the outside facility and transferred to [facility] for emergent evaluation management. Unfortunately, the patient is unable to provide any additional history at this time. I was at bedside and the patient arrived to the surgical intensive care unit. Dr. Long and I both evaluated the patient and when he arrived he was in a junctional bradycardia with heart rate in the 40s. He had obvious ST depressions in lead II on telemetry. Our initial concern was that we have extended the dissection into the type A dissection. We also did not have any CT of the abdomen and pelvis. On her physical exam, the patient had a cold left foot without pulses. I emergently placed a right radial arterial line, please see separate procedure note for details. We then went emergently to the CT scanner for repeat CT aortogram of the chest abdomen and pelvis to investigate the extent to which the dissection has extended. The CT aortogram demonstrated that this was still a type B dissection with the celiac artery being significantly compressed and possibly comprising flow from the dissection flap. The right kidney appears to be perfused off the false lumen and not the true lumen, and there is no contrast going down the left femoral artery. Patient was then brought back to the intensive care unit. His blood pressure is controlled on nicardipine infusion for goal systolic blood pressure less than 110. A 12-lead EKG at that time was done which demonstrated significant ST depressions in the inferior leads as well as the far lateral leads consistent with subendocardial ischemia. At the request of Dr. Long in anticipation of going emergently to the operative theater, I placed a lumbar drain for spinal protection, please see separate procedure note for details. At that point the patient was taken emergently to the operating room. Critical care medicine is been consulted to evaluate and manage the patient's type B dissection, hemodynamic's, acute hypoxic respiratory failure. 07/05: taken to OR for TEVAR overnight. lactate cleared overnight. uop adequate. Cr elevated to 1.8 this AM. He is on Coreg 50 mg by mouth 07/06: oliguric overnight. Cr rising. however, lactate cleared. other markers of end-organ perfusion better. likely ATN from time of dissection. awake following commands. moving bilateral lower extremities. clear CSF in lumbar drain. on intermittent norepinephrine to maintain spinal perfusion. 07/07: extubated yesterday, followed commands, good pulmonary mechanics. However , after extubation, became acutely delirious- probable combination of etoh withdraw and icu delirium, some pain. mental status waxed and waned throughout the day and ultimately reintubated overnight for worsening waning mental status and hypoxia. post-extubation it has been documented that he continues to move his bilateral lower extremities to painful stimuli and spontaneously. does not follow commands this morning. troponins downtrending. cardiology evaluated the patient yesterday, formal note pending, but per my conversation, plan was for ongoing conservative management as we are doing, and plan for nuc med stress test when stable. 07/08: still moving bilateral LEs spontaneously and w/d to pain. remains intubated with persistent agitation. hypoxia improving. platelets continue to fall, likely a combination of consumption, BUBBA, liver disease. will give unit of platelets prior to d/c lumbar drain. 07/09: Troponin spill resolving without evidence of ongoing injury. Major obstacle is agitation related to ETOH withdrawal followed by necessary sedation. Continue to work toward vent weaning. 07/10: Afebrile. Not following commands. Continues to be agitated for reasons above. Tolerating tube feeding at goal rate. Creatinine hopefully has plateaued. 07/11: CURRENT TEMPERATURE 100.2. MRI brain yesterday revealed left cellular restricted diffusion area likely acute infarct with small punctate areas within the coronal radiata possibly embolic event. Patient is arousable and will move all 4 extremities but not following commands. Left foot remains cool. Tolerating tube feeding. No bowel movement times 4 days. 07/12: Tmax 99.7. Currently 99. Noted right vertebral/distal left MCA/mid right BOOK CUTTER stenosis on imaging yesterday. Central line exchange from right to left side due to bleeding. No bowel movement for tolerating tube feedings with very low residuals. Still wean sedation. 07/13: Currently afebrile. Patient with soap side enema yesterday with's positive BM 3 overnight.. Go containment device currently in place. Currently hypertensive/when necessary labetalol and clonidine will be added. Noted liberalize SCI around 120 systolic blood pressure. Arousable on the ventilator and moves all 4 extremities spontaneously but not following commands. 07/14: Tmax 99.3. No significant bowel movement overnight. Currently hypotensive. Noted SCI around 120 systolic blood pressure recommended by vascular surgery. Arousable on ventilator on sedation vacation moves all 4 extremity spontaneously but not to commands. 07/15: Afebrile. -2775 cc stool past 24 hours. Currently hypertensive. Bradycardic. Requiring antihypertensives. Plan for percutaneous cholecystostomy tube today. 07/16: Remains afebrile. CXR clearing. Renal injury without change, spontaneous urine acceptable. 07/17: No material change. Tolerates CPAP. 07/18: Family is talking with palliative Care service. 07/19: Will try CPAP with decreasing pressure support. DNR status clouds issue for extubation. 07/20: Failed SBT yesterday, could not tolerate lower pressure support. 07/21: Tolerates 5/5 SBT for several hours. Unresponsive, no eye opening today. No improvement in motor function. Extensive discussion with his brother Luis yesterday. Family is pretty consolidated in their wish to withdraw artificial support. Hopefully we can discuss options with all principals Friday. 07/22: Nods head accurately to questions today. Moves 4 limbs to command, left is minimal. 07/23: Patient nods head yes to wanting re-intubation and trach if necessary. He nods "yes" to wanting us to do everything to help him live. 07/24: Still wants trial extubation and reintubation if necessary. 07/25: Extubated 24 hours ago. Sleepy and accumulating secretions in upper airway. He will require a protected airway. His interaction with me over the past three days have all indicated that he wants us to perform a tracheostomy if he fails the extubation trial. He confirms his desire to live and remain full code status. 07/26: Stronger, more alert on trach ventilation. Dobbhoff or PEG usp? 07/27: Renal function continues to improve. More alert, interactive. 07/28: Remains on mechanical ventilation via tracheostomy. Awake and alert. 07/29: Spiked temperature 101.3 last night. Tolerated T piece for 2 hours yesterday. 07/30: still somnolent. urine growing budding yeast. Subjective: 07/31: more awake today. localizing. nonfocal. wbc elevated, low grade temps, but non-toxic appearing. Objective Vital Signs Date Time Temp Pulse Resp B/P Pulse Ox O2 Delivery O2 Flow Rate FiO2 07/31/16 06:00 81 07/31/16 04:12 99 30 07/31/16 04:00 100.4 18 165/77 07/30/16 19:00 Mechanical Ventilator Trach Collar 07/28/16 16:01 5.00 Intake and Output 07/30/16 07/30/16 07/31/16 08:00 16:00 00:00 Intake Total 319 ml 495 ml 429 ml Output Total 660 ml 940 ml 470 ml Balance -341 ml -445 ml -41 ml Result Diagram: 07/31/16 0341 07/31/16 0341 Imaging Last Impressions Chest X-Ray 07/15/16 0600 Signed Impressions: Service Date/Time: Friday, July 15, 2016 04:38 - CONCLUSION: Some worsening of the bilateral pulmonary infiltrates. Joe Appiah Jr., MD Abdomen X-Ray 07/15/16 0600 Signed Impressions: Service Date/Time: Friday, July 15, 2016 04:41 - CONCLUSION: No dilated bowel to suggest an obstruction. Joe Appiah Jr., MD Gall Bladder Ultrasound 07/14/16 0000 Signed Impressions: Service Date/Time: Thursday, July 14, 2016 11:36 - CONCLUSION: Abnormal gallbladder as described above. Cholecystitis would be consideration. The patient is only minimally tender around the gallbladder. Donis Hernandez MD FACR Abdomen/Pelvis CT 07/13/16 0000 Signed Impressions: Service Date/Time: Wednesday, July 13, 2016 17:29 - CONCLUSION: 1. Abnormal appearance of the gallbladder with wall thickening and possible pericholecystic fluid. No calcified stones. Recommend hepatobiliary tract scan to evaluate for acalculus cholecystitis. 2. Bilateral lower lung consolidation and bilateral pleural effusions. 3. Moderate amount of stool in the left colon. 4. Bilateral nonobstructing renal stones. Joe De Leon MD Neck Magnetic Resonance Angiography 07/11/16 0000 Signed Impressions: Service Date/Time: June 14:29 - CONCLUSION: 1. No evidence of carotid stenosis. 2. Short segment high-grade stenosis involving the mid right vertebral artery greater than 80 with a patent left vertebral artery Abhijeet Salinas MD Head Magnetic Resonance Angiography 07/11/16 0000 Signed Impressions: Service Date/Time: June 14:29 - CONCLUSION: 1. Evidence of atherosclerotic disease with focal distal left MCA branch stenosis and focal mid right BOOK CUTTER stenosis. 2. No proximal high grade stenosis or aneurysm. Bladimir Gasca MD Brain MRI 07/10/16 0000 Signed Impressions: Service Date/Time: Sunday, July 10, 2016 15:03 - CONCLUSION: 1. Small punctate infarcts involving the left cerebellar hemisphere and deep white matter bilaterally in this patient with a background of amyloid angiopathy. No acute hemorrhage is seen. Abhijeet Salinas MD Renal Ultrasound 07/08/16 0000 Signed Impressions: Service Date/Time: Friday, July 08, 2016 17:16 - CONCLUSION: 1. Resistive indices could not be obtained on the right side into the patient's body habitus and shadowing bowel gas. Left renal artery resistive indices are within normal limits. 2. No significant abdominal aortic aneurysm identified status post repair. 3. Probable 7 mm nonobstructing midpole right renal calculus. 4. Tiny left lower pole cyst measuring 1.5 cm. Hamlet Vinson MD Aorta CTA 07/04/16 0000 Signed Impressions: Service Date/Time: June 19:53 - CONCLUSION: 1. Extensive aortic dissection extending from the proximal transverse aorta just distal to the origin of the left subclavian artery. Dissection extends distally through both superficial femoral arteries. 2. Occlusion of the right renal artery with absent perfusion of the right kidney. Dissection of the left renal artery with absent perfusion of the anterior left kidney. 3. 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 4. Occlusion of left external iliac artery and right internal iliac artery. 5. ET tube in satisfactory position. Dependent consolidation in both lungs. Probable mild liver cirrhosis. No obstruction or free fluid. Russell catheter in decompressed bladder. See above discussion. Rodriguez Jeff MD Objective Remarks GENERAL: 60-year-old male. HEENT: Normocephalic. Atraumatic. Pupils 3 mm, reactive, NECK: Tracheostomy in place CHEST: On mechanical ventilation via tracheostomy, Clear to auscultation, no wheezes rales or rhonchi. More comfortable pattern. CARDIOVASCULAR: RRR. S1, S2 no S4. No m,r. No JVD ABDOMEN: Non-distended, soft. No rigidity. Active bowel sounds. MUSCULOSKELETAL: Distal pulses 2+. Left leg weak/numb. NEUROLOGICAL: somnolent, Withdraws both upper and LEs to noxious stimuli. localizes. Tracks with eyes. 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 Possible amyloid. MRA head/neck revealed right vertebral 80% short segment stenosis, distal left MCA and mid right BOOK CUTTER stenosis EEG 07/10 revealed no seizure activity Delirium/Withdraw regimen: --Haldol 5mg iv q4h prn for breakthrough agitation. -- Provigil 200mg po daily for alertness -- dilaudid to 0.25mg iv q4h prn. -- continue oxycodone 10mg po q4h prn. -- Okayed with Dr. Long for aspirin 324 mg daily Respiratory: Acute hypoxic and hypercarbic respiratory failure --PSV this AM. Vent bundle. Daily C Pap/T piece trials Bronchodilator therapy every 6 hours and albuterol every 2 hours when needed Head of bed 30 Wean FiO2 for goal SPO2 greater than 92% - s/p Trach 07/25. -- daily trach collar trials. Cardiovascular: Postop T4 with left lower x-ray fasciotomy secondary to type B aortic dissection with renal/visceral and left lower extreme L perfusion Thoracic endovascular stent with left lower extremity fasciotomy/ compartments with [address] Long Acute type B dissection- secured Type II NSTEMI- Demand Ischemia- resolving Junction bradycardia- resolved. Lactic Acidosis- resolved. -- elevated troponins likely combination of demand ischemia and poor renal clearance -- Cardiology: Dr. Mondragon following. plan for conservative management with myocardial perfusion scan when stable. -- 2d echo: EF 55%, no RWMA. 2-D echo 07/08 repeat EF 60-65%. Mild MR. [facility] dilated. RENO 49 mmHg --As needed labetalol for systolic blood pressure greater than 160 Renal: Acute kidney injury Acute Tubular Necrosis Right and left nephrolithiasis Likely secondary to hypoperfusion of the kidney from dissection, ATN -- FENa 07/07 1.2% consistent with ATN. Urine eos negative. -- Strict I/Os Russell placement to be maintained --nephrology consult 07/08 appreciated. No indication for dialysis at this point Avoid nephrotoxins drugs slight elevation in BUN/Cr. will add free water for mild additional fluid balance. FEN/GI: Colonic ileus Acute protein calorie malnutrition- mild Non-anion gap metabolic acidosis- resolved. Hyperphosphatemia Hyper-magnesium Hyponatremia History of peptic ulcer disease Hepatitis C -from IV drug use Elevated AST TF: Nepro at goal 40 cc an hour --nutrition consult. --Currently on PhosLo 2668 mg 3 times a day for hyperphosphatemia Protonix for GI prophylaxis. Stephie-Colace twice a day for bowel regimen. MiraLAX twice a day lactulose 4 times daily. KUB revealed 8 cm transverse colon ileus. Positive results with enema. CT abdomen/those revealed wall thickening or gallbladder. 2 right midpole no obstructing kidney stones, left circumflex continues on, to semi-bilateral pleural effusions and large amount stool left colon. s/p percutaneous cholecystostomy tube for gallbladder 07/15. Not a surgical candidate at this time. daily bmp, phos Heme/ID: Leukocytosislikely reactive Acute Blood Loss Anemia Thrombocytopenia Daily CBC Febrile Daily coags --thrombocytopenia is likely multifactorial from liver disease, consumptive from critical illness and dissection. Blood cultures/sputum/urine ordered 07/11 no growth to date Pancultured 07/29 for fevers. urine culture 07/29 yeast, likely colonization. Endocrine: Hyperglycemia of critical illness -- SSI, medium scale, every 6 hours Prophylaxis: GI Prophylaxis Protonix 40 mg IV every 24 DVT Prophylaxis -- SCDs/heparin . Lines: 07/13 -radial arterial line - out --07/04-07/11 right IJ cortis -- Left IJ CVL 07/11 - out Dr. Campos spoke at length with patient's brother Luis after the procedure and we established a plan to watch him closely while he's off all sedation and reassess his mental status. Overall impression: less somnolent this morning. Comfortable after trach. New fever-pancultures ordered 07/29. will hold off on coverage with abx at this time. If he clinically declines, will broaden abx. Dennis Rich MD Jul 31, 2016 07:52
[2016-07-31] MEDS: FREE WATER G-TUBE SCH ×4 (08:56→23:09)
[2016-07-31] MEDS: CHLORHEXIDINE 0.12% (ORAL KIT) 15 ML CUP MT SCH ×2 (08:56→21:20)
[2016-07-31] MEDS: ASPIRIN 81 MG CHEW TAB CHEW SCH (08:57)
[2016-07-31] MEDS: CHLOROTHIAZIDE SOD 500 MG VIAL IV SCH (08:58)
[2016-07-31] MEDS: BUMETANIDE INJ 1 MG/4 ML VIAL IV PUSH SCH (08:58)
[2016-07-31] MEDS: THIAMINE HCL 100 MG TAB PO SCH (08:59)
[2016-07-31] MEDS: MULTIVITAMIN TAB PO SCH (08:59)
[2016-07-31] MEDS: FAMOTIDINE 40 MG/5 ML LIQ 50 ML BTL NG SCH ×2 (08:59→21:35)
[2016-07-31] MEDS: CALCIUM ACETATE 667 MG CAP PO SCH ×2 (08:59→13:00)
[2016-07-31] MEDS: DOCUSATE SODIUM 50 MG/SENNA 8.6 MG TAB PO SCH ×2 (08:59→21:10)
[2016-07-31] MEDS: SODIUM CHLORIDE 0.9% FLUSH 10 ML FLUSH IVF SCH (08:59)
[2016-07-31] MEDS: LACTULOSE SYRUP 20 GM/30 ML CUP PO SCH ×2 (08:59→13:00)
[2016-07-31] MEDS: POLYETHYLENE GLYCOL 17 GM PKG OG-TUBE SCH ×2 (08:59→21:09)
[2016-07-31] MEDS: HEPARIN SODIUM - SQ 10,000 UNITS/ML VIAL SQ SCH ×2 (09:00→21:09)
[2016-07-31] MEDS: MODAFINIL 200 MG TAB PO SCH (09:54)
[2016-07-31] MEDS: DOXAZOSIN MESYLATE 2 MG TAB PO SCH (09:54)
[2016-07-31] MEDS: hydrALAZINE HCL 20 MG/ML VIAL IV PRN (10:33)
--- NOTE | 2016-07-31 15:48 | HHI.HCPN ---
Reason for visit a. To assist with evaluation and management of symptoms including: pain, dyspnea, encephalopathy b. To assist medical decision maker(s) with: better understanding of current medical conditions; weighing benefits/burdens of medical treatment options; making medical treatment decisions. . Subjective/Interval History Patient seen and assessed in room 1304 s/p TEVAR and LLE fasciotomy. Patient was extubated on 07/24/16 - tracheostomy placed for airway protection yesterday 07/25/16. Currently on 6L oxygen via T-piece. Patient continues to be intermittently febrile, Tmax overnight when a 100.6 Blood culture negative. Urine culture growing yeast. WBC increased to 16.1 today on 07/31/16. Follow-up chest x-ray this morning showed a small infiltrate in the right lung base. Patient is awake, eyes open. Remains somnolent but more awake today. Does not respond to questions, does not follow commands. Showing no signs of nonverbal pain. PRN Oxycodone 10 mg PO q 4 hours for pain level I6. PRN Dilaudid decreased from 1mg to 0.25 mg q4 hours IV for pain level 7-10 or when not taking PO. PRN fentanyl has been discontinued. 24 hour total: Oxycodone 2 . Family/friend interactions Phone call to patient's brother, Luis. Update provided on patient's clinical condition. Discussed LTAC placement in the future, possible PEG tube placement. Questions answered to the best of my ability. . Advance Directives Living Will: Never completed Health Care Surrogate: Never completed Durable Power of Transmission Worker: Never completed Advance Directive Specifics Date completed: Advance directives never completed. . Health Care Surrogate(s): No written designation of health care surrogacy. . Documented care wishes: No written documentation of health care goals/preferences. . Objective Vital Signs Date Time Temp Pulse Resp B/P Pulse Ox O2 Delivery O2 Flow Rate FiO2 07/31/16 12:00 94 07/31/16 12:00 98.8 94 19 144/67 96 07/31/16 10:00 91 07/31/16 08:29 98 T-piece 6.00 28 07/31/16 08:00 99.6 80 16 168/76 97 07/31/16 08:00 80 07/31/16 06:00 81 07/31/16 04:12 99 30 07/31/16 04:00 100.4 71 18 165/77 98 07/31/16 04:00 30 07/31/16 04:00 71 07/31/16 02:00 93 07/31/16 01:11 97 30 07/31/16 00:00 30 07/31/16 00:00 100.6 85 20 151/74 95 07/31/16 00:00 85 07/30/16 22:00 80 07/30/16 20:00 70 07/30/16 20:00 30 07/30/16 20:00 100.6 73 18 113/56 97 07/30/16 19:49 100 40 07/30/16 19:35 96 30 07/30/16 19:00 96 Mechanical Ventilator 30 Trach Collar 07/30/16 18:00 73 07/30/16 17:14 100 30 07/30/16 16:00 30 07/30/16 16:00 75 07/30/16 16:00 99.9 65 15 109/51 99 Intake & Output 07/31/16 07/31/16 07:00 19:00 Intake Total 847 ml Output Total 1230 ml Balance -383 ml Tube Feeding 647 ml Other 200 ml Output Urine Total 1150 ml Drainage Total 80 ml # Bowel Movements 2 . Physical Exam CONSTITUTIONAL/GENERAL: This is an adequately nourished patient s/p tracheostomy on 6L oxygen via T-piece. TUBES/LINES/DRAINS: Tracheostomy, OGT, dignishield, Russell catheter, SCD 1, soft restraints 2, cholecystostomy, PIV 2 SKIN: Incisions on left lower extremity without S/S of infection Skin is warm to touch. EYES: Pupils equal and round, and reactive. ENT: Nose without bleeding or purulent drainage. NECK: Trachea midline. CARDIOVASCULAR: Regular rate and rhythm. No murmur. No JVD RESPIRATORY/CHEST: S/p tracheostomy, on 6L oxygen via T-piece. No wheezes, rhonchi, Rales. GASTROINTESTINAL: Abdomen distended, firm. Cholecystostomy draining trial colored fluid. GENITOURINARY: Without palpable bladder distension. Russell catheter in place. MUSCULOSKELETAL: No obvious deformities. Trace edema in upper and lower extremities. LYMPHATICS: Not examined. NEUROLOGICAL: Eyes open. Somnolent. Withdraws upper and lower extremities bilaterally to deep tactile stimuli. Does not respond to questions. Does not follow commands. PSYCHIATRIC: Unable to assess due to patient's decreased level of responsiveness. .. Diagnostic Tests Laboratory Laboratory Tests Test 07/29/16 07/29/16 07/30/16 07/31/16 03:40 10:45 14:20 03:41 White Blood Count 11.3 TH/MM3 16.1 TH/MM3 (4.0-11.0) (4.0-11.0) Red Blood Count 2.92 MIL/MM3 3.18 MIL/MM3 (4.50-5.90) (4.50-5.90) Hemoglobin 9.1 GM/DL 10.2 GM/DL (13.0-17.0) (13.0-17.0) Hematocrit 28.1 % 29.7 % (39.0-51.0) (39.0-51.0) Mean Corpuscular Volume 96.2 FL 93.4 FL (80.0-100.0) (80.0-100.0) Mean Corpuscular Hemoglobin 31.2 PG 31.9 PG (27.0-34.0) (27.0-34.0) Mean Corpuscular Hemoglobin 32.4 % 34.2 % Concent (32.0-36.0) (32.0-36.0) Red Cell Distribution Width 15.1 % 15.0 % (11.6-17.2) (11.6-17.2) Platelet Count 455 TH/MM3 503 TH/MM3 (150-450) (150-450) Mean Platelet Volume 7.5 FL 8.2 FL (7.0-11.0) (7.0-11.0) Neutrophils (%) (Auto) 62.7 % (16.0-70.0) Lymphocytes (%) (Auto) 14.5 % (9.0-44.0) Monocytes (%) (Auto) 14.5 % (0.0-8.0) Eosinophils (%) (Auto) 5.0 % (0.0-4.0) Basophils (%) (Auto) 3.3 % (0.0-2.0) Neutrophils # (Auto) 7.1 TH/MM3 (1.8-7.7) Lymphocytes # (Auto) 1.6 TH/MM3 (1.0-4.8) Monocytes # (Auto) 1.6 TH/MM3 (0-0.9) Eosinophils # (Auto) 0.6 TH/MM3 (0-0.4) Basophils # (Auto) 0.4 TH/MM3 (0-0.2) CBC Comment DIFF FINAL Differential Comment Sodium Level 151 MEQ/L 149 MEQ/L (136-145) (136-145) Potassium Level 3.4 MEQ/L 3.7 MEQ/L 3.6 MEQ/L (3.5-5.1) (3.5-5.1) (3.5-5.1) Chloride Level 112 MEQ/L 110 MEQ/L (98-107) (98-107) Carbon Dioxide Level 30.4 MEQ/L 30.4 MEQ/L (21.0-32.0) (21.0-32.0) Anion Gap 9 MEQ/L (5-15) 9 MEQ/L (5-15) Blood Urea Nitrogen 100 MG/DL 114 MG/DL (7-18) (7-18) Creatinine 4.35 MG/DL 4.51 MG/DL (0.60-1.30) (0.60-1.30) Estimat Glomerular Filtration 14 ML/MIN (>89) 13 ML/MIN (>89) Rate Random Glucose 128 MG/DL 139 MG/DL (74-106) (74-106) Calcium Level 9.4 MG/DL 10.1 MG/DL (8.5-10.1) (8.5-10.1) Magnesium Level 2.8 MG/DL 3.0 MG/DL (1.5-2.5) (1.5-2.5) Total Bilirubin 1.3 MG/DL (0.2-1.0) Aspartate Amino Transf 45 U/L (15-37) (AST/SGOT) Alanine Aminotransferase 27 U/L (12-78) (ALT/SGPT) Alkaline Phosphatase 95 U/L (45-117) Total Protein 7.5 GM/DL (6.4-8.2) Albumin 1.9 GM/DL (3.4-5.0) Urine Color YELLOW (YELLW/STRAW) Urine Turbidity HAZY (CLEAR) Urine pH 6.0 (5.0-8.5) Urine Specific [place] 1.017 (1.002-1.035) Urine Protein 30 mg/dL (NEG-TRACE) Urine Glucose (UA) NEG mg/dL (NEG) Urine Ketones NEG mg/dL (NEG) Urine Occult Blood MOD (NEG) Urine Nitrite NEG (NEG) Urine Bilirubin NEG (NEG) Urine Urobilinogen LESS THAN 2.0 MG/DL (LESS THAN 2.0) Urine Leukocyte Esterase LARGE (NEG) Urine RBC 152 /hpf (0-3) Urine WBC 58 /hpf (0-5) Urine Bacteria FEW /hpf (NONE) Urine Mucus FEW /lpf (OCC) Urine Yeast with Hyphae FEW (NONE) Urine Yeast (Budding) MANY (NONE) Microscopic Urinalysis Comment CATH-CULTURE IND Phosphorus Level 2.2 MG/DL (2.5-4.9) . Result Diagram: 07/31/16 03407/31/16 034 Microbiology Microbiology Date/Time Procedure Status Source Growth 07/29/16 09:40 Gram Stain - Final Complete Sputum Endotracheal 07/29/16 09:40 Sputum Culture - Final Complete Sputum Endotracheal HEAVY GROWTH NORMAL RESPIRATORY KIM 07/29/16 10:45 Urine Culture - Final Complete Urine Catheterized Urine Esperanza Tropicalis 07/29/16 13:35 Aerobic Blood Culture - Preliminary Resulted Blood Peripheral NO GROWTH IN 2 DAYS 07/29/16 13:35 Anaerobic Blood Culture - Preliminary Resulted Blood Peripheral NO GROWTH IN 2 DAYS 07/29/16 13:40 Aerobic Blood Culture - Preliminary Resulted Blood Peripheral NO GROWTH IN 2 DAYS 07/29/16 13:40 Anaerobic Blood Culture - Preliminary Resulted Blood Peripheral NO GROWTH IN 2 DAYS . Imaging Last 72 hours Impressions Chest X-Ray 07/30/16 0600 Signed Impressions: Service Date/Time: Saturday, July 30, 2016 05:22 - CONCLUSION: Small infiltrate right lung base. Tubes and catheter stable Daniel Casper MD . Procedures 07/04/16: Right radial arterial line placement 07/04/16: Lumbar drain placement 07/04/16: Right IJ cortis placement 07/04/16: TEVAR and LLE fasciotomy. 07/06/16: Extubation 07/07/16: Reintubation 07/08/16: Platelet transfusion 07/08/16: Lumbar drain removed 07/11/16: Right IJ cortis removed 07/11/16: Left IJ CVL placement 07/24/16: Extubated 07/25/16: Tracheostomy and bronchoscopy . 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 (2) Delirium (3) Respiratory failure (4) NSTEMI (non-ST elevated myocardial infarction) (5) Stroke Comment: MRI shows "small punctate infarcts involving the left cerebellar hemisphere and deep white matter bilaterally " in a background of amyloid angiopathy. . (6) Acute kidney insufficiency Comment: Probably a result of ischemic injury from dissection. . (7) HTN (hypertension) (8) Hepatitis C (9) Elevated troponin (10) Cholecystitis Comment: s/p cholecystostomy tube placement. . (11) COPD (chronic obstructive pulmonary disease) Symptom Scale: (1) Pain 0-10 Scale: Unable to quantify Comment: Possible causes of pain include postop surgical pain, circulation, edema, ETT, OG, invasive lines, immobility, bedbound status etc. (2) Dyspnea 0-10 Scale: Unable to quantify Comment: Status post tracheostomy, now on 6L excision via T-piece. . (3) Encephalopathy Comment: Somnolent. Does not track. Does not respond to questions or follow commands. Pertinent Non-Medical Issues Psychosocial: Patient was born in [place] and moved to [place] as young adult. Patient has a long history of polysubstance abuse which includes EtOH consumption and crack cocaine. The patient continues to drink 8-12 beers daily. The patient has never been and has no children. His mother and 2 of his siblings live locally and a third brother lives in [place]. Patient's mother states patient has been diagnosed with oppositional defiant disorder and is a history of medical noncompliance. Prior to his hospitalization, the patient was living with an elderly gentleman and they were helping each other. 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 The patient received disability approximately 1 week prior to this hospitalization. Spiritual: Anabaptism nicolas Legal: Per [place] statutes, health care proxy decision making would fall to the patient's mother. Family members state while in the ED at [facility] patient identified his brother (Luis) as his medical decision maker, apparently the appropriate documentation and was not completed. Family members are in agreement and working together on patient's medical decisions. However the patient's mother and 2 other siblings (Olga and Jean Carlos) has opted out of decision making role, deferring to brother Luis. Ethical issues impacting care: No known ethical issues impacting care at this time . Important Contacts Nathalia Izquierdo, mother: [phone] Brother (Luis); [phone] [id number] (Chanda); [phone] Sister (Olga); [phone] Brother (Jean Carlos): [phone] . Prognosis Patient is a 60 year old man who was admitted with a type B aortic dissection. He is currently critically ill status post with TAVER and LLE fasciotomy. His past medical history is significant for polysubstance abuse (EtOH/crack cocaine) , HTN, CAD, COPD, hepatitis C/cirrhosis as well as medical noncompliance The patient currently remains orotracheally intubated and sedated. BUBBA - patient likely sustained severe ischemic injuries to both kidneys secondary to dissection involving renal arteries. It is certainly possible that this patient will be successfully extubated and upcoming days, eventually being stable enough to be discharged to SNF. However given the patient's past medical history, noncompliance, and this recent acute event, the patient has a strong probability into new decline and/or complications. . Code Status: Full Code Plan * FULL CODE * Decision-making: Per [place] statutes, health care proxy decision making would fall to the patient's mother. Family members state while in the ED at [facility] patient identified his brother (Luis) as his medical decision maker, apparently the appropriate documentation and was not completed. Family members are in agreement and working together on patient's medical decisions. However the patient's mother and 2 other siblings (Olga and Jean Carlos) has opted out of decision making role, therefore decision-making multiple to the patient' s brother Luis. * Goals: Aggressive at this time. * Symptom managementpain: Possible causes of pain include postop surgical pain , circulation, edema, tracheostomy ,OG, invasive lines, immobility, bedbound status etc. patient showing no nonverbal signs or symptoms of pain. Showing no signs of nonverbal pain. PRN Oxycodone 10 mg PO q 4 hours for pain level I 6. PRN Dilaudid decreased from 1mg to 0.25 mg q4 hours IV for pain level 7-10 or when not taking PO. PRN fentanyl has been discontinued. 24 hour total: Oxycodone 2 * Symptom managementencephalopathy: Somnolent. Arouses to verbal stimuli. Withdraws upper and lower extremities bilaterally to deep tactile stimuli. Does not respond to questions or follow commands. * Managementdyspnea: Status post tracheostomy. Now on 6L oxygen via T piece. * Discussed with patient's nurse and Dr. Rich. * Phone call to patient's brother, Luis. Update provided on patient's clinical condition. Discussed LTAC placement in the future, possible PEG tube placement. Questions answered to the best of my ability. * Palliative care will continue to follow this patient throughout his hospitalization to establish trust, assist with symptom management and clarification of medical treatment goals. . Attestation To help prompt me to consider important information that might be impacting today's encounter and assessment, information from prior notes written by myself or my colleagues may have been "brought forward" into today's note. My signature on this note, however, is an attestation that I personally performed the exam, history, and/or decision-making noted today, and, unless otherwise indicated, the interactions with patient, family, and staff as well as the review of records all occurred today. I also attest that the listed assessment and stated plan reflect my best clinical judgment today based on the combination of historical information, prior notes, and today's exam/ interactions. When time spent is documented, it refers only to time spent today by the signer, or if indicated, combined time spent today by collaborating physician/nurse practitioner. . Vikki Liu Jul 31, 2016 15:47
--- NOTE | 2016-07-31 16:45 | HHI.NPPN ---
Subjective History of Present Illness This patient is a 60-year-old male apparently with a history of previous alcohol and crack usage also has a history of hepatitis C, coronary disease and hypertension as well as medical noncompliance. Patient was admitted with a type B aortic dissection. CTA thoracic aorta and abdominal aorta performed July 04, 2016 revealed occluded right renal artery as well as perfusion only to the left posterior aspect of the left kidney. Patient status post emergent TAVA, left lower extremity fasciectomy mention of previous nonperfusion to that extremity. Patient's creatinine level was within normal range from previous records prior to this admission however patient had evidence of renal sufficiency on presentation and his creatinine level has continued to rise to a level of 4.75 Date of Consultation with marginal urine output. Interval History Patient lethargic and nonverbal. Review of Systems General General Remarks Unobtainable because of clinical status. Objective Data Data 07/30/16 07/31/16 19:00 07:00 Intake Total 495 ml 847 ml Output Total 940 ml 1230 ml Balance -445 ml -383 ml IV Total 0 ml Tube Feeding 495 ml 647 ml Other 200 ml Output Urine Total 900 ml 1150 ml Drainage Total 40 ml 80 ml # Bowel Movements 1 2 Vital Signs Date Time Temp Pulse Resp B/P Pulse Ox O2 Delivery O2 Flow Rate FiO2 07/31/16 12:00 94 07/31/16 12:00 98.8 94 19 144/67 96 07/31/16 10:00 91 07/31/16 08:29 98 T-piece 6.00 28 07/31/16 08:00 99.6 80 16 168/76 97 07/31/16 08:00 80 07/31/16 06:00 81 07/31/16 04:12 99 30 07/31/16 04:00 100.4 71 18 165/77 98 07/31/16 04:00 30 07/31/16 04:00 71 07/31/16 02:00 93 07/31/16 01:11 97 30 07/31/16 00:00 30 07/31/16 00:00 100.6 85 20 151/74 95 07/31/16 00:00 85 07/30/16 22:00 80 07/30/16 20:00 70 07/30/16 20:00 30 07/30/16 20:00 100.6 73 18 113/56 97 07/30/16 19:49 100 40 07/30/16 19:35 96 30 07/30/16 19:00 96 Mechanical Ventilator 30 Trach Collar 07/30/16 18:00 73 07/30/16 17:14 100 30 -: 07/31/16 0341 07/31/16 0341 Physical Exam General Appearance: No Acute Distress, Comfortable Pulmonary Resp Exam: Clear Bilaterally, Breath Sounds Equal, No Distress Cardiology CV Exam: Regular, Normal Sinus Rhythm Gastrointestinal/Abdomen GI Exam: Soft, Non-Tender Integumentary Skin Exam: Clear, Warm Extremeties Extremities Exam: Moderate Edema (dependent edema lower extremities however is improving. One plus.), Dependent Edema Assessment/Plan Problem List: (1) Acute kidney insufficiency Plan: Renal indices have deteriorated slightly however urine output is good. Patient may be becoming slightly "dry". We'll discontinue IV bumetanide and continue with by mouth bumetanide. Also discontinue Diuril. Continue to monitor renal indices which will hopefully improve. Also discontinue PhosLo in view of hypophosphatemia. Medications should be adjusted for the patient's estimated GFR if clinically indicated. Avoid agents with significant potential for nephrotoxicity possible including NSAIDs for analgesia, iodine contrast agents if possible. Gadolinium is contraindicated if the GFR is below 30. I will continue to see patient intermittently. Please call with any questions. (2) Hepatitis C Plan: Not playing a role as far as his acute renal failure is concerned in this setting. (3) HTN (hypertension) Eufemia Walters MD Jul 31, 2016 16:45
[2016-07-31] MEDS: SODIUM CHLOR 0.9% 1000 ML INJ 1,000 ML IV SCH (17:58)
[2016-07-31] MEDS ORDERED: BUMETANIDE 1 MG TAB NG SCH (18:00)
[2016-07-31] MEDS: MELATONIN 5 MG TAB PO SCH (21:09)
[2016-08-01] VITALS (21 sets, daily range): BP systolic 124–154; BP diastolic 61–67; PULSE 85–111; RESP 17–24; TEMP 98.6–101.8; O2SAT 94–100
[2016-08-01] MEDS: HYDROmorphone HCL PF 1 MG/ML VIAL IV PUSH PRN (00:20)
[2016-08-01] MEDS: hydrALAZINE HCL 20 MG/ML VIAL IV PRN (00:20)
[2016-08-01] MEDS: CHLORHEXIDINE GLUCONATE 2 % 1 PACK (2 CLOTHS) TOP SCH (04:00)
[2016-08-01 04:46] LABS: HEMATOCRIT 30.6 % (39.0-51.0); MEAN CELL VOLUME 94.7 FL (80.0-100.0); MEAN CORPUSCULAR HEMOGLOBIN 30.8 PG (27.0-34.0); MEAN CORPUSCULAR HGB CONC 32.5 % (32.0-36.0); PLATELET COUNT 456 TH/MM3 (150-450); RED BLOOD COUNT 3.22 MIL/MM3 (4.50-5.90); RED CELL DISTRIBUTION WIDTH 15.1 % (11.6-17.2); REVIEW FLAG FINAL; WHITE BLOOD COUNT 16.7 TH/MM3 (4.0-11.0)
[2016-08-01 04:59] LABS: BICARBONATE 30.5 MEQ/L (21.0-32.0); POTASSIUM 3.7 MEQ/L (3.5-5.1)
[2016-08-01] MEDS: INSULIN NovoLIN REGULAR SUPPLEMENTAL SCALE SQ SCH ×4 (05:43→23:45)
[2016-08-01] MEDS: ARTIFICIAL TEARS OPTH SOLN 15 ML BTL EACH EYE SCH ×3 (05:43→22:00)
[2016-08-01] MEDS: FREE WATER G-TUBE SCH ×6 (05:44→23:46)
[2016-08-01] MEDS ORDERED: FLUCONAZOLE 200 MG PREMIX BAG 100 ML IV ONE (07:30)
--- NOTE | 2016-08-01 07:41 | HHI.CCPN ---
Subjective Remarks/Hospital Course Hospital Course: This is a 60-year-old male who is transferred emergently from outside hospital with per report and acute type B dissection. Apparently the patient told his family member today that he had searing back pain and was taken to the emergency department. A CT of the chest at that time showed a type B dissection. The patient was intubated the outside facility and transferred to [place] for emergent evaluation management. Unfortunately, the patient is unable to provide any additional history at this time. I was at bedside and the patient arrived to the surgical intensive care unit. Dr. Long and I both evaluated the patient and when he arrived he was in a junctional bradycardia with heart rate in the 40s. He had obvious ST depressions in lead II on telemetry. Our initial concern was that we have extended the dissection into the type A dissection. We also did not have any CT of the abdomen and pelvis. On her physical exam, the patient had a cold left foot without pulses. I emergently placed a right radial arterial line, please see separate procedure note for details. We then went emergently to the CT scanner for repeat CT aortogram of the chest abdomen and pelvis to investigate the extent to which the dissection has extended. The CT aortogram demonstrated that this was still a type B dissection with the celiac artery being significantly compressed and possibly comprising flow from the dissection flap. The right kidney appears to be perfused off the false lumen and not the true lumen, and there is no contrast going down the left femoral artery. Patient was then brought back to the intensive care unit. His blood pressure is controlled on nicardipine infusion for goal systolic blood pressure less than 110. A 12-lead EKG at that time was done which demonstrated significant ST depressions in the inferior leads as well as the far lateral leads consistent with subendocardial ischemia. At the request of Dr. Long in anticipation of going emergently to the operative theater, I placed a lumbar drain for spinal protection, please see separate procedure note for details. At that point the patient was taken emergently to the operating room. Critical care medicine is been consulted to evaluate and manage the patient's type B dissection, hemodynamic's, acute hypoxic respiratory failure. 07/05: taken to OR for TEVAR overnight. lactate cleared overnight. uop adequate. Cr elevated to 1.8 this AM. He is on Coreg 50 mg by mouth 07/06: oliguric overnight. Cr rising. however, lactate cleared. other markers of end-organ perfusion better. likely ATN from time of dissection. awake following commands. moving bilateral lower extremities. clear CSF in lumbar drain. on intermittent norepinephrine to maintain spinal perfusion. 07/07: extubated yesterday, followed commands, good pulmonary mechanics. However , after extubation, became acutely delirious- probable combination of etoh withdraw and icu delirium, some pain. mental status waxed and waned throughout the day and ultimately reintubated overnight for worsening waning mental status and hypoxia. post-extubation it has been documented that he continues to move his bilateral lower extremities to painful stimuli and spontaneously. does not follow commands this morning. troponins downtrending. cardiology evaluated the patient yesterday, formal note pending, but per my conversation, plan was for ongoing conservative management as we are doing, and plan for nuc med stress test when stable. 07/08: still moving bilateral LEs spontaneously and w/d to pain. remains intubated with persistent agitation. hypoxia improving. platelets continue to fall, likely a combination of consumption, BUBBA, liver disease. will give unit of platelets prior to d/c lumbar drain. 07/09: Troponin spill resolving without evidence of ongoing injury. Major obstacle is agitation related to ETOH withdrawal followed by necessary sedation. Continue to work toward vent weaning. 07/10: Afebrile. Not following commands. Continues to be agitated for reasons above. Tolerating tube feeding at goal rate. Creatinine hopefully has plateaued. 07/11: CURRENT TEMPERATURE 100.2. MRI brain yesterday revealed left cellular restricted diffusion area likely acute infarct with small punctate areas within the coronal radiata possibly embolic event. Patient is arousable and will move all 4 extremities but not following commands. Left foot remains cool. Tolerating tube feeding. No bowel movement times 4 days. 07/12: Tmax 99.7. Currently 99. Noted right vertebral/distal left MCA/mid right [employer] stenosis on imaging yesterday. Central line exchange from right to left side due to bleeding. No bowel movement for tolerating tube feedings with very low residuals. Still wean sedation. 07/13: Currently afebrile. Patient with soap side enema yesterday with's positive BM 3 overnight.. Go containment device currently in place. Currently hypertensive/when necessary labetalol and clonidine will be added. Noted liberalize SCI around 120 systolic blood pressure. Arousable on the ventilator and moves all 4 extremities spontaneously but not following commands. 07/14: Tmax 99.3. No significant bowel movement overnight. Currently hypotensive. Noted SCI around 120 systolic blood pressure recommended by vascular surgery. Arousable on ventilator on sedation vacation moves all 4 extremity spontaneously but not to commands. 07/15: Afebrile. -2775 cc stool past 24 hours. Currently hypertensive. Bradycardic. Requiring antihypertensives. Plan for percutaneous cholecystostomy tube today. 07/16: Remains afebrile. CXR clearing. Renal injury without change, spontaneous urine acceptable. 07/17: No material change. Tolerates CPAP. 07/18: Family is talking with palliative Care service. 07/19: Will try CPAP with decreasing pressure support. DNR status clouds issue for extubation. 07/20: Failed SBT yesterday, could not tolerate lower pressure support. 07/21: Tolerates 5/5 SBT for several hours. Unresponsive, no eye opening today. No improvement in motor function. Extensive discussion with his brother Luis yesterday. Family is pretty consolidated in their wish to withdraw artificial support. Hopefully we can discuss options with all principals Friday. 07/22: Nods head accurately to questions today. Moves 4 limbs to command, left is minimal. 07/23: Patient nods head yes to wanting re-intubation and trach if necessary. He nods "yes" to wanting us to do everything to help him live. 07/24: Still wants trial extubation and reintubation if necessary. 07/25: Extubated 24 hours ago. Sleepy and accumulating secretions in upper airway. He will require a protected airway. His interaction with me over the past three days have all indicated that he wants us to perform a tracheostomy if he fails the extubation trial. He confirms his desire to live and remain full code status. 07/26: Stronger, more alert on trach ventilation. Dobbhoff or PEG custodial? 07/27: Renal function continues to improve. More alert, interactive. 07/28: Remains on mechanical ventilation via tracheostomy. Awake and alert. 07/29: Spiked temperature 101.3 last night. Tolerated T piece for 2 hours yesterday. 07/30: still somnolent. urine growing budding yeast. 07/31: more awake today. localizing. nonfocal. wbc elevated, low grade temps, but non-toxic appearing. Subjective: 08/01: worsening encephalopathy today. still nonfocal, but either severe hypoactive delirium vs. structural problem. will obtain MRI. still with low- grade temps. Cr continues to worsen. Objective Vital Signs Date Time Temp Pulse Resp B/P Pulse Ox O2 Delivery O2 Flow Rate FiO2 08/01/16 06:00 99 08/01/16 04:00 99.0 22 137/63 95 08/01/16 03:51 30 07/31/16 19:40 T-piece 6.00 Intake and Output 07/31/16 07/31/16 08/01/16 08:00 16:00 00:00 Intake Total 418 ml 733 ml 678 ml Output Total 760.0 ml 1100.0 ml 820 ml Balance -342.0 ml -367.0 ml -142 ml Result Diagram: 08/01/16 0308 08/01/16 0308 Other Results Microbiology Date/Time Procedure Status Source Growth 07/29/16 09:40 Gram Stain - Final Complete Sputum Endotracheal 07/29/16 09:40 Sputum Culture - Final Complete Sputum Endotracheal HEAVY GROWTH NORMAL RESPIRATORY KIM 07/29/16 10:45 Urine Culture - Final Complete Urine Catheterized Urine Jenny Tropicalis Imaging Last Impressions Chest X-Ray 07/15/16 06 Signed Impressions: Service Date/Time: Friday, July 15, 2016 04:38 - CONCLUSION: Some worsening of the bilateral pulmonary infiltrates. Joe Appiah Jr., MD Abdomen X-Ray 07/15/16 0600 Signed Impressions: Service Date/Time: Friday, July 15, 2016 04:41 - CONCLUSION: No dilated bowel to suggest an obstruction. Joe Appiah Jr., MD Gall Bladder Ultrasound 07/14/16 0000 Signed Impressions: Service Date/Time: Thursday, July 14, 2016 11:36 - CONCLUSION: Abnormal gallbladder as described above. Cholecystitis would be consideration. The patient is only minimally tender around the gallbladder. Donis Hernandez MD FACR Abdomen/Pelvis CT 07/13/16 0000 Signed Impressions: Service Date/Time: Wednesday, July 13, 2016 17:29 - CONCLUSION: 1. Abnormal appearance of the gallbladder with wall thickening and possible pericholecystic fluid. No calcified stones. Recommend hepatobiliary tract scan to evaluate for acalculus cholecystitis. 2. Bilateral lower lung consolidation and bilateral pleural effusions. 3. Moderate amount of stool in the left colon. 4. Bilateral nonobstructing renal stones. Joe De Leon MD Neck Magnetic Resonance Angiography 07/11/16 0000 Signed Impressions: Service Date/Time: June 14:29 - CONCLUSION: 1. No evidence of carotid stenosis. 2. Short segment high-grade stenosis involving the mid right vertebral artery greater than 80 with a patent left vertebral artery Abhijeet Salinas MD Head Magnetic Resonance Angiography 07/11/16 0000 Signed Impressions: Service Date/Time: June 14:29 - CONCLUSION: 1. Evidence of atherosclerotic disease with focal distal left MCA branch stenosis and focal mid right [employer] stenosis. 2. No proximal high grade stenosis or aneurysm. Bladimir Gasca MD Brain MRI 07/10/16 0000 Signed Impressions: Service Date/Time: Sunday, July 10, 2016 15:03 - CONCLUSION: 1. Small punctate infarcts involving the left cerebellar hemisphere and deep white matter bilaterally in this patient with a background of amyloid angiopathy. No acute hemorrhage is seen. Abhijeet Salinas MD Renal Ultrasound 07/08/16 0000 Signed Impressions: Service Date/Time: Friday, July 08, 2016 17:16 - CONCLUSION: 1. Resistive indices could not be obtained on the right side into the patient's body habitus and shadowing bowel gas. Left renal artery resistive indices are within normal limits. 2. No significant abdominal aortic aneurysm identified status post repair. 3. Probable 7 mm nonobstructing midpole right renal calculus. 4. Tiny left lower pole cyst measuring 1.5 cm. Hamlet Vinson MD Aorta CTA 07/04/16 0000 Signed Impressions: Service Date/Time: June 19:53 - CONCLUSION: 1. Extensive aortic dissection extending from the proximal transverse aorta just distal to the origin of the left subclavian artery. Dissection extends distally through both superficial femoral arteries. 2. Occlusion of the right renal artery with absent perfusion of the right kidney. Dissection of the left renal artery with absent perfusion of the anterior left kidney. 3. 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 4. Occlusion of left external iliac artery and right internal iliac artery. 5. ET tube in satisfactory position. Dependent consolidation in both lungs. Probable mild liver cirrhosis. No obstruction or free fluid. Randle catheter in decompressed bladder. See above discussion. Rodriguez Jeff MD Objective Remarks GENERAL: 60-year-old male. HEENT: Normocephalic. Atraumatic. Pupils 3 mm, reactive, NECK: Tracheostomy in place CHEST: on trach collar today., Clear to auscultation, no wheezes rales or rhonchi. More comfortable pattern. CARDIOVASCULAR: RRR. S1, S2 no S4. No m,r. No JVD ABDOMEN: Non-distended, soft. No rigidity. Active bowel sounds. MUSCULOSKELETAL: Distal pulses 2+. Left leg weak/numb. NEUROLOGICAL: somnolent, Withdraws both upper and LEs to noxious stimuli. does not localize today. not tracking today. A/P Assessment and Plan Neuro/Psych: Left cerebellar lacunar infarct Right vertebral/distal left MCA and mid right [employer] stenosis Agitated Delirium Alcohol Withdrawal - up to 15 beers daily Alcohol abuse History of polysubstance abuse including crack cocaine Lumbar drain placement - removed 07/08 Insomnia On melatonin 5 mg at night as needed for insomnia Daily thiamine 100 mg daily for EtOH use MRI brain 07/10 revealed left cerebellar cystic diffusion region with small punctate areas in the suarez radiata likely embolic. Possible amyloid. MRA head/neck revealed right vertebral 80% short segment stenosis, distal left MCA and mid right [employer] stenosis EEG 07/10 revealed no seizure activity -- will obtain MRI today. -- check ammonia level. Delirium/Withdraw regimen: --Haldol 5mg iv q4h prn for breakthrough agitation. -- Provigil 200mg po daily for alertness -- dilaudid to 0.25mg iv q4h prn. -- decrease oxycodone to 5mg po q4h prn. -- Okayed with Dr. Long for aspirin 324 mg daily Respiratory: Acute hypoxic and hypercarbic respiratory failure --PSV this AM. Vent bundle. Daily C Pap/T piece trials Bronchodilator therapy every 6 hours and albuterol every 2 hours when needed Head of bed 30 Wean FiO2 for goal SPO2 greater than 92% - s/p Trach 07/25. -- daily trach collar trials. Cardiovascular: Postop T4 with left lower x-ray fasciotomy secondary to type B aortic dissection with renal/visceral and left lower extreme L perfusion Thoracic endovascular stent with left lower extremity fasciotomy/ compartments with [address] Long Acute type B dissection- secured Type II NSTEMI- Demand Ischemia- resolving Junction bradycardia- resolved. Lactic Acidosis- resolved. -- elevated troponins likely combination of demand ischemia and poor renal clearance -- Cardiology: Dr. Mondragon following. plan for conservative management with myocardial perfusion scan when stable. -- 2d echo: EF 55%, no RWMA. 2-D echo 07/08 repeat EF 60-65%. Mild MR. [facility] dilated. RENO 49 mmHg --As needed labetalol for systolic blood pressure greater than 160 Renal: Acute kidney injury Acute Tubular Necrosis Right and left nephrolithiasis Likely secondary to hypoperfusion of the kidney from dissection, ATN -- FENa 07/07 1.2% consistent with ATN. Urine eos negative. -- Strict I/Os Randle removed and condom cath placed yesterday for jenny tropicalis uti. --nephrology consult 07/08 appreciated. No indication for dialysis at this point increase free water hold scheduled bumex add LR at 100cc/hr x 10hr for gentle fluid hydration. FEN/GI: Colonic ileus Acute protein calorie malnutrition- mild Non-anion gap metabolic acidosis- resolved. Hyper-magnesium Hypernatremia History of peptic ulcer disease Hepatitis C -from IV drug use Elevated AST TF: Nepro at goal 40 cc an hour --nutrition consult. --phosLo d/c'd 07/31 for hypophosphatemia. Protonix for GI prophylaxis. Stephie-Colace twice a day for bowel regimen. MiraLAX twice a day KUB revealed 8 cm transverse colon ileus. Positive results with enema. CT abdomen/those revealed wall thickening or gallbladder. 2 right midpole no obstructing kidney stones, left circumflex continues on, to semi-bilateral pleural effusions and large amount stool left colon. s/p percutaneous cholecystostomy tube for gallbladder 07/15. Not a surgical candidate at this time. daily bmp, phos Heme/ID: Leukocytosis Acute Blood Loss Anemia Thrombocytopenia Daily CBC Febrile Daily coags --thrombocytopenia is likely multifactorial from liver disease, consumptive from critical illness and dissection. Blood cultures/sputum/urine ordered 07/11 no growth to date Pancultured 07/29 for fevers. urine culture 07/29 jenny tropicalis -- start Fluconazole 200mg iv x 1, then 100mg iv q24h x 14 day course. -- repeat blood cultures today. Endocrine: Hyperglycemia of critical illness -- SSI, medium scale, every 6 hours Prophylaxis: GI Prophylaxis po pepcid. DVT Prophylaxis -- SCDs/heparin . Lines: 07/13 -radial arterial line - out --07/04-07/11 right IJ cortis -- Left IJ CVL 07/11 - out -- condom cath. no randle. may require replacement of randle if he has significant urinary retention. Dr. Campos spoke at length with patient's brother Luis after the procedure and we established a plan to watch him closely while he's off all sedation and reassess his mental status. Overall impression: more somnolent this morning. low-grade fevers persist. will cover empirically for fungal cystitis. re-culture. MRI. check ammonia. Dennis Rich MD Aug 01, 2016 07:41
[2016-08-01] MEDS ORDERED: LACTATED RINGER'S 1000 ML INJ 1,000 ML IV SCH (08:00)
[2016-08-01] MEDS: CHLORHEXIDINE 0.12% (ORAL KIT) 15 ML CUP MT SCH ×2 (08:19→21:20)
[2016-08-01] MEDS: MODAFINIL 200 MG TAB PO SCH (08:19)
[2016-08-01] MEDS: MULTIVITAMIN TAB PO SCH (08:19)
[2016-08-01] MEDS: THIAMINE HCL 100 MG TAB PO SCH (08:19)
[2016-08-01] MEDS: DOCUSATE SODIUM 50 MG/SENNA 8.6 MG TAB PO SCH ×2 (08:20→21:20)
[2016-08-01] MEDS: HEPARIN SODIUM - SQ 10,000 UNITS/ML VIAL SQ SCH ×2 (08:20→21:21)
[2016-08-01] MEDS: DOXAZOSIN MESYLATE 2 MG TAB PO SCH (08:20)
[2016-08-01] MEDS: ASPIRIN 81 MG CHEW TAB CHEW SCH (08:20)
[2016-08-01] MEDS: ACETAMINOPHEN 325 MG TAB PO PRN (08:20)
[2016-08-01] MEDS: POLYETHYLENE GLYCOL 17 GM PKG OG-TUBE SCH ×2 (08:20→21:20)
[2016-08-01] MEDS: SODIUM CHLORIDE 0.9% FLUSH 10 ML FLUSH IVF SCH (08:21)
[2016-08-01] MEDS: FAMOTIDINE 40 MG/5 ML LIQ 50 ML BTL NG SCH ×2 (08:21→21:20)
--- NOTE | 2016-08-01 10:05 | PD.VS.PN ---
Subjective POD #: [id number] Procedure(s): TEVAR, L LE fasciotomies for acute TBAD with visceral/renal/LLE malperfusion Subjective/Hospital Course Deteriorating mental status without focal deficits Cr up again UOP ok Objective Vitals/I&O Date Time Temp Pulse Resp B/P Pulse Ox O2 Delivery O2 Flow Rate FiO2 08/01/16 07:49 97 Ventilator 30 08/01/16 07:49 97 30 08/01/16 06:00 99 08/01/16 04:00 99.0 96 22 137/63 95 08/01/16 04:00 85 08/01/16 03:51 97 30 08/01/16 02:10 97 30 08/01/16 02:00 30 08/01/16 02:00 30 08/01/16 02:00 85 08/01/16 00:00 99.5 111 24 154/67 94 08/01/16 00:00 111 07/31/16 22:00 101 07/31/16 20:00 100.1 96 24 158/67 94 07/31/16 20:00 96 07/31/16 19:40 96 T-piece 6.00 28 07/31/16 19:00 97 Trach Collar 28 07/31/16 18:00 91 07/31/16 16:00 98.8 95 24 149/67 97 07/31/16 16:00 95 07/31/16 14:00 95 07/31/16 12:00 94 07/31/16 12:00 98.8 94 19 144/67 96 08/01/16 08/01/16 08/01/16 07:00 15:00 23:00 Intake Total 900 ml Output Total 870 ml Balance 30 ml Exam: not following commands Fasciotomies ok Palp pulses in DP Laboratory Laboratory Tests Test 08/01/16 03:08 White Blood Count 16.7 Red Blood Count 3.22 Hemoglobin 9.9 Hematocrit 30.6 Mean Corpuscular Volume 94.7 Mean Corpuscular Hemoglobin 30.8 Mean Corpuscular Hemoglobin 32.5 Concent Red Cell Distribution Width 15.1 Platelet Count 456 Mean Platelet Volume 8.4 Sodium Level 150 Potassium Level 3.7 Chloride Level 109 Carbon Dioxide Level 30.5 Anion Gap 11 Blood Urea Nitrogen 112 Creatinine 4.75 Estimat Glomerular Filtration 13 Rate Random Glucose 126 Calcium Level 9.9 Phosphorus Level 2.4 Date/Time Procedure Status Source Growth 07/29/16 13:40 Aerobic Blood Culture - Preliminary Resulted Blood Peripheral NO GROWTH IN 2 DAYS 07/29/16 13:40 Anaerobic Blood Culture - Preliminary Resulted Blood Peripheral NO GROWTH IN 2 DAYS 07/29/16 10:45 Urine Culture - Final Complete Urine Catheterized Urine Esperanza Tropicalis 07/29/16 09:40 Gram Stain - Final Complete Sputum Endotracheal 07/29/16 09:40 Sputum Culture - Final Complete Sputum Endotracheal HEAVY GROWTH NORMAL RESPIRATORY KIM Assessment and Plan Assessment: (1) Dissecting aneurysm of thoracic aorta, Saran type B Status: Acute Plan Continue to wean sedation aggressively and continue vent wean Continue to watch UOP Repeat MR today Fungal UTI Full code Physical therapy. May need to discuss intermediate project manager care facilities with family. Hamlet Long MD FACS deputy register of deeds [facility] V[facility] at [facility] Hamlet Long MD Aug 01, 2016 10:05
--- NOTE | 2016-08-01 12:14 | RADRPT ---
EXAM DATE/TIME: 08/01/2016 11:42 [place] COMPARISON: MRI BRAIN W/O CONTRAST, July 10, 2016, 15:03. INDICATIONS : Altered mental status. Declining mental status. MEDICAL HISTORY : Hypertension. Hepatitis C. Congestive heart failure. SURGICAL HISTORY : Aortic stent, cholectomy, tracheostomy, LLE fasciotomy ENCOUNTER: Subsequent ACUITY: 1 month PAIN SCORE: Nonresponsive. LOCATION: cranial TECHNIQUE: Multiplanar, multisequence MRI of the brain was performed without contrast. FINDINGS: CEREBRUM: The ventricles are normal for age. No evidence of midline shift, mass lesion, hemorrhage or acute in farction. No extraaxial fluid collections are seen. The pituitary gland and suprasellar cistern are normal in configuration. Marked susceptibility blooming artifact on the susceptibility weighted imag es are suggestive of amyloid angiopathy WHITE MATTER: Stable chronic white matter changes in the high periventricular and deep white matter tract distribut ions. POSTERIOR FOSSA: The cerebellum and brainstem are intact. The 4th ventricle is midline. The cerebellopontine angle is unremarkable. The cerebellar tonsils are normal in position. DIFFUSION IMAGING: Focal area of diffusion restriction in the right side of the splenium of the corpus callosum. A there are stable punctate areas of diffusion restriction in the high parietal convexities bilaterally whic h may represent some region of T2 shine through. EXTRACRANIAL: The visualized portions of the orbits and paranasal sinuses are unremarkable. CONCLUSION: 1. Susceptibility blooming artifact on the susceptibility weighted images suggestive of amyloid angio kristin. 2. Stable chronic white matter changes. 3. However, there is a new area of diffusion restriction in the right side splenium of the corpus corie losum characteristic of a white matter infarct. 4. Stable punctate areas of increased diffusion signal in the high parietal convexity are unchanged f rom the July 10 study and may represent T2 shine through. Luis Tierney MD on August 01, 2016 at 12:05 Board Certified Radiologist. This report was verified electronically.
--- NOTE | 2016-08-01 14:35 | HHI.HCPN ---
Reason for visit a. To assist with evaluation and management of symptoms including: pain, dyspnea, encephalopathy b. To assist medical decision maker(s) with: better understanding of current medical conditions; weighing benefits/burdens of medical treatment options; making medical treatment decisions. . Subjective/Interval History Patient seen and assessed in room 1304 s/p TEVAR and LLE fasciotomy. Patient was extubated on 07/24/16 - tracheostomy placed for airway protection yesterday 07/25/16. Currently on 6L oxygen via T-piece. Febrile; Tmax 101.8. WBC of 16.7. Blood culture negative on 07/31/16; follow-up blood culture ordered today 08/01/16. Urine culture growing yeast, patient was started on IV Fluconazole. Sputum culture 08/01/16 pending. Follow-up chest x- ray this morning showed a small infiltrate in the right lung base. Patient having worsening encephalopathy today. An MRI brain this morning revealed no evidence of midline shift, mass lesion, hemorrhage or acute infarction. No extra-axial fluid collections were seen. Marked susceptibility blooming artifact on the susceptibility weighted images suggestive of amyloid angiopathy. Stable chronic white matter changes. However, there is a new area of diffusion restriction in the right side splenium of corpus callosum characteristic of a white a white matter infarct. Stable punctuate areas of increased diffusion signal in the high parietal convexity are unchanged from July 10 study and may represent T2 shine through. PRN Oxycodone 10 mg PO q 4 hours for pain level I6. PRN Dilaudid decreased from 1mg to 0.25 mg q4 hours IV for pain level 7-10 or when not taking PO. PRN fentanyl has been discontinued. Patient has received 1 dose of Dilaudid in the past 24 hours. . Advance Directives Living Will: Never completed Health Care Surrogate: Never completed Durable Power of Manager Custom: Never completed Advance Directive Specifics Date completed: Advance directives never completed. . Health Care Surrogate(s): No written designation of health care surrogacy. . Documented care wishes: No written documentation of health care goals/preferences. . Objective Vital Signs Date Time Temp Pulse Resp B/P Pulse Ox O2 Delivery O2 Flow Rate FiO2 08/01/16 12:42 96 30 08/01/16 12:15 100 50 08/01/16 12:00 30 08/01/16 12:00 89 08/01/16 12:00 100.0 94 24 131/61 96 08/01/16 10:00 103 08/01/16 08:00 30 08/01/16 08:00 107 08/01/16 08:00 101.8 107 24 144/66 98 08/01/16 07:49 97 Ventilator 30 08/01/16 07:49 97 30 08/01/16 07:00 98 Mechanical Ventilator 30 Trach Collar 08/01/16 06:00 99 08/01/16 04:00 99.0 96 22 137/63 95 08/01/16 04:00 85 08/01/16 03:51 97 30 08/01/16 02:10 97 30 08/01/16 02:00 30 08/01/16 02:00 30 08/01/16 02:00 85 08/01/16 00:00 99.5 111 24 154/67 94 08/01/16 00:00 111 07/31/16 22:00 101 07/31/16 20:00 100.1 96 24 158/67 94 07/31/16 20:00 96 07/31/16 19:40 96 T-piece 6.00 28 07/31/16 19:00 97 Trach Collar 28 07/31/16 18:00 91 07/31/16 16:00 98.8 95 24 149/67 97 07/31/16 16:00 95 Intake & Output 08/01/16 08/01/16 07:00 19:00 Intake Total 1578 ml Output Total 1690 ml 0 ml Balance -112 ml 0 ml Tube Feeding 578 ml Other 1000 ml Output Urine Total 1600 ml Tube Feeding Residual Discard 0 ml 0 ml Drainage Total 90 ml # Bowel Movements 0 . Physical Exam CONSTITUTIONAL/GENERAL: This is an adequately nourished patient s/p tracheostomy on 6L oxygen via T-piece. TUBES/LINES/DRAINS: Tracheostomy, OGT, dignishield, Russell catheter, SCD 1, soft restraints 2, cholecystostomy, PIV 2 SKIN: Incisions on left lower extremity without S/S of infection Skin is warm to touch. EYES: Pupils equal and round, and reactive. ENT: Nose without bleeding or purulent drainage. NECK: Trachea midline. CARDIOVASCULAR: Tachycardic No murmur. No JVD RESPIRATORY/CHEST: S/p tracheostomy, back on CPAP overnight. GASTROINTESTINAL: Abdomen distended, firm. Cholecystostomy draining trial colored fluid. GENITOURINARY: Without palpable bladder distension. Russell catheter in place. MUSCULOSKELETAL: No obvious deformities. Muscle wasting noted LYMPHATICS: Not examined. NEUROLOGICAL: Eyes open. Somnolent. Withdraws upper and lower extremities bilaterally to deep tactile stimuli. Does not respond to questions. Does not follow commands. PSYCHIATRIC: Unable to assess due to patient's decreased level of responsiveness. .. Diagnostic Tests Laboratory Laboratory Tests Test 07/30/16 07/31/16 08/01/16 14:20 03:41 03:08 Potassium Level 3.7 MEQ/L 3.6 MEQ/L 3.7 MEQ/L (3.5-5.1) (3.5-5.1) (3.5-5.1) Magnesium Level 3.0 MG/DL (1.5-2.5) White Blood Count 16.1 TH/MM3 16.7 TH/MM3 (4.0-11.0) (4.0-11.0) Red Blood Count 3.18 MIL/MM3 3.22 MIL/MM3 (4.50-5.90) (4.50-5.90) Hemoglobin 10.2 GM/DL 9.9 GM/DL (13.0-17.0) (13.0-17.0) Hematocrit 29.7 % 30.6 % (39.0-51.0) (39.0-51.0) Mean Corpuscular Volume 93.4 FL 94.7 FL (80.0-100.0) (80.0-100.0) Mean Corpuscular Hemoglobin 31.9 PG 30.8 PG (27.0-34.0) (27.0-34.0) Mean Corpuscular Hemoglobin 34.2 % 32.5 % Concent (32.0-36.0) (32.0-36.0) Red Cell Distribution Width 15.0 % 15.1 % (11.6-17.2) (11.6-17.2) Platelet Count 503 TH/MM3 456 TH/MM3 (150-450) (150-450) Mean Platelet Volume 8.2 FL 8.4 FL (7.0-11.0) (7.0-11.0) Sodium Level 149 MEQ/L 150 MEQ/L (136-145) (136-145) Chloride Level 110 MEQ/L 109 MEQ/L (98-107) (98-107) Carbon Dioxide Level 30.4 MEQ/L 30.5 MEQ/L (21.0-32.0) (21.0-32.0) Anion Gap 9 MEQ/L (5-15) 11 MEQ/L (5-15) Blood Urea Nitrogen 114 MG/DL 112 MG/DL (7-18) (7-18) Creatinine 4.51 MG/DL 4.75 MG/DL (0.60-1.30) (0.60-1.30) Estimat Glomerular Filtration 13 ML/MIN (>89) 13 ML/MIN (>89) Rate Random Glucose 139 MG/DL 126 MG/DL (74-106) (74-106) Calcium Level 10.1 MG/DL 9.9 MG/DL (8.5-10.1) (8.5-10.1) Phosphorus Level 2.2 MG/DL 2.4 MG/DL (2.5-4.9) (2.5-4.9) . Result Diagram: 08/01/16 0308 08/01/16 0308 Microbiology Microbiology Date/Time Procedure Status Source Growth 08/01/16 12:47 Gram Stain Received Sputum Endotracheal Pending 08/01/16 12:47 Sputum Culture Received Sputum Endotracheal Pending . Imaging Last 72 hours Impressions Brain MRI 08/01/16 0000 Signed Impressions: Service Date/Time: July 11:42 - CONCLUSION: 1. Susceptibility blooming artifact on the susceptibility weighted images suggestive of amyloid angiopathy. 2. Stable chronic white matter changes. 3. However, there is a new area of diffusion restriction in the right side splenium of the corpus callosum characteristic of a white matter infarct. 4. Stable punctate areas of increased diffusion signal in the high parietal convexity are unchanged from the July 10 study and may represent T2 shine through. Luis Tierney MD Chest X-Ray 07/30/16 0600 Signed Impressions: Service Date/Time: Saturday, July 30, 2016 05:22 - CONCLUSION: Small infiltrate right lung base. Tubes and catheter stable Daniel Casper MD . Procedures 07/04/16: Right radial arterial line placement 07/04/16: Lumbar drain placement 07/04/16: Right IJ cortis placement 07/04/16: TEVAR and LLE fasciotomy. 07/06/16: Extubation 07/07/16: Reintubation 07/08/16: Platelet transfusion 07/08/16: Lumbar drain removed 07/11/16: Right IJ cortis removed 07/11/16: Left IJ CVL placement 07/24/16: Extubated 07/25/16: Tracheostomy and bronchoscopy . Assessment and Plan Disease Oriented Problem List: (1) Dissecting aneurysm of thoracic aorta, Saran type B Comment: s/p TAVER procedure . (2) Delirium (3) Respiratory failure (4) NSTEMI (non-ST elevated myocardial infarction) (5) Stroke Comment: MRI shows "small punctate infarcts involving the left cerebellar hemisphere and deep white matter bilaterally " in a background of amyloid angiopathy. . (6) Acute kidney insufficiency Comment: Probably a result of ischemic injury from dissection. . (7) HTN (hypertension) (8) Hepatitis C (9) Elevated troponin (10) Cholecystitis Comment: s/p cholecystostomy tube placement. . (11) COPD (chronic obstructive pulmonary disease) Symptom Scale: (1) Pain 0-10 Scale: Unable to quantify Comment: Possible causes of pain include postop surgical pain, circulation, edema, ETT, OG, invasive lines, immobility, bedbound status etc. (2) Dyspnea 0-10 Scale: Unable to quantify Comment: Status post tracheostomy, placed back on CPAP overnight. . (3) Encephalopathy Comment: Worsening encephalopathy today. An MRI brain this morning revealed no evidence of midline shift, mass lesion, hemorrhage or acute infarction. No extra-axial fluid collections were seen. Marked susceptibility blooming artifact on the susceptibility weighted images suggestive of amyloid angiopathy. Stable chronic white matter changes. However, there is a new area of diffusion restriction in the right side splenium of corpus callosum characteristic of a white a white matter infarct. Stable punctuate areas of increased diffusion signal in the high parietal convexity are unchanged from July 10 study and may represent T2 shine through. Pertinent Non-Medical Issues Psychosocial: Patient was born in [place] and moved to [place] as young adult. Patient has a long history of polysubstance abuse which includes EtOH consumption and crack cocaine. The patient continues to drink 8-12 beers daily. The patient has never been and has no children. His mother and 2 of his siblings live locally and a third brother lives in [place]. Patient's mother states patient has been diagnosed with oppositional defiant disorder and is a history of medical noncompliance. Prior to his hospitalization, the patient was living with an elderly gentleman and they were helping each other. 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 The patient received disability approximately 1 week prior to this hospitalization. Spiritual: [employer] Legal: Per [place] statutes, health care proxy decision making would fall to the patient's mother. Family members state while in the ED at [facility] patient identified his brother (Luis) as his medical decision maker, apparently the appropriate documentation and was not completed. Family members are in agreement and working together on patient's medical decisions. However the patient's mother and 2 other siblings (Olga and Jean Carlos) has opted out of decision making role, deferring to brother Luis. Ethical issues impacting care: No known ethical issues impacting care at this time . Important Contacts Nathalia Izquierdo, mother: [phone] Brother (Luis); [phone] [id number] (Chanda); [phone] Sister (Olga); [phone] Brother (Jean Carlos): [phone] . Prognosis Patient is a 60 year old man who was admitted with a type B aortic dissection. He is currently critically ill status post with TAVER and LLE fasciotomy. His past medical history is significant for polysubstance abuse (EtOH/crack cocaine) , HTN, CAD, COPD, hepatitis C/cirrhosis as well as medical noncompliance The patient currently remains orotracheally intubated and sedated. BUBBA - patient likely sustained severe ischemic injuries to both kidneys secondary to dissection involving renal arteries. It is certainly possible that this patient will be successfully extubated and upcoming days, eventually being stable enough to be discharged to SNF. However given the patient's past medical history, noncompliance, and this recent acute event, the patient has a strong probability into new decline and/or complications. . Code Status: Full Code Plan * FULL CODE * Decision-making: Per [place] statutes, health care proxy decision making would fall to the patient's mother. Family members state while in the ED at [facility] patient identified his brother (Luis) as his medical decision maker, apparently the appropriate documentation and was not completed. Family members are in agreement and working together on patient's medical decisions. However the patient's mother and 2 other siblings (Olga and Jean Carlos) has opted out of decision making role, therefore decision-making multiple to the patient' s brother Luis. * Goals: Aggressive at this time. * Symptom managementpain: Possible causes of pain include postop surgical pain , circulation, edema, tracheostomy ,OG, invasive lines, immobility, bedbound status etc. patient showing no nonverbal signs or symptoms of pain. Showing no signs of nonverbal pain. PRN Oxycodone 10 mg PO q 4 hours for pain level I 6. PRN Dilaudid decreased from 1mg to 0.25 mg q4 hours IV for pain level 7-10 or when not taking PO. PRN fentanyl has been discontinued. 24 hour total: Dilaudid 0.25 mg 1 * Symptom managementencephalopathy: An MRI brain this morning revealed no evidence of midline shift, mass lesion, hemorrhage or acute infarction. No extra -axial fluid collections were seen. Marked susceptibility blooming artifact on the susceptibility weighted images suggestive of amyloid angiopathy. Stable chronic white matter changes. However, there is a new area of diffusion restriction in the right side splenium of corpus callosum characteristic of a white a white matter infarct. Stable punctuate areas of increased diffusion signal in the high parietal convexity are unchanged from July 10 study and may represent T2 shine through. * Managementdyspnea: Status post tracheostomy, placed back on CPAP overnight. * Discussed with patient's nurse and Dr. Rich. * Palliative care will continue to follow this patient throughout his hospitalization to establish trust, assist with symptom management and clarification of medical treatment goals. . Collaborating MD Comments To help prompt me to consider important information that might be impacting today's encounter and assessment, information from prior notes written by myself or my colleagues may have been "brought forward" into today's note. My signature on this note, however, is an attestation that I personally performed the exam, history, and/or decision-making noted today, and, unless otherwise indicated, the interactions with patient, family, and staff as well as the review of records all occurred today. I also attest that the listed assessment and stated plan reflect my best clinical judgment today based on the combination of historical information, prior notes, and today's exam/ interactions. When time spent is documented, it refers only to time spent today by the signer, or if indicated, combined time spent today by collaborating physician/nurse practitioner. . Vikki Liu Aug 01, 2016 14:34
--- NOTE | 2016-08-01 15:06 | HHI.NPPN ---
Subjective History of Present Illness This patient is a 60-year-old male apparently with a history of previous alcohol and crack usage also has a history of hepatitis C, coronary disease and hypertension as well as medical noncompliance. Patient was admitted with a type B aortic dissection. CTA thoracic aorta and abdominal aorta performed July 04, 2016 revealed occluded right renal artery as well as perfusion only to the left posterior aspect of the left kidney. Patient status post emergent TAVA, left lower extremity fasciectomy mention of previous nonperfusion to that extremity. Patient's creatinine level was within normal range from previous records prior to this admission however patient had evidence of renal sufficiency on presentation and his creatinine level has continued to rise to a level of 4.75 Date of Consultation with marginal urine output. Interval History The patient remains non-verbal and on ventilator. IV diuretics held yesterday and NG diuretics held this AM. No change otherwise. Review of Systems General General Remarks Unobtainable because of clinical status. Objective Data Data 07/31/16 08/01/16 19:00 07:00 Intake Total 733 ml 1578 ml Output Total 1100.0 ml 1690 ml Balance -367.0 ml -112 ml IV Total 0 ml Tube Feeding 333 ml 578 ml Other 400 ml 1000 ml Output Urine Total 1100 ml 1600 ml Tube Feeding Residual Discard 0 ml 0 ml Drainage Total 90 ml # Bowel Movements 0 0 Vital Signs Date Time Temp Pulse Resp B/P Pulse Ox O2 Delivery O2 Flow Rate FiO2 08/01/16 12:42 96 30 08/01/16 12:15 100 50 08/01/16 12:00 30 08/01/16 12:00 89 08/01/16 12:00 100.0 94 24 131/61 96 08/01/16 10:00 103 08/01/16 08:00 30 08/01/16 08:00 107 08/01/16 08:00 101.8 107 24 144/66 98 08/01/16 07:49 97 Ventilator 30 08/01/16 07:49 97 30 08/01/16 07:00 98 Mechanical Ventilator 30 Trach Collar 08/01/16 06:00 99 08/01/16 04:00 99.0 96 22 137/63 95 08/01/16 04:00 85 08/01/16 03:51 97 30 08/01/16 02:10 97 30 08/01/16 02:00 30 08/01/16 02:00 30 08/01/16 02:00 85 08/01/16 00:00 99.5 111 24 154/67 94 08/01/16 00:00 111 07/31/16 22:00 101 07/31/16 20:00 100.1 96 24 158/67 94 07/31/16 20:00 96 07/31/16 19:40 96 T-piece 6.00 28 07/31/16 19:00 97 Trach Collar 28 07/31/16 18:00 91 07/31/16 16:00 98.8 95 24 149/67 97 07/31/16 16:00 95 -: 08/01/16 0308 08/01/16 0308 Microbiology 08/01/16 Gram Stain, Received Pending 08/01/16 Sputum Culture, Received Pending Medication Review Current Medications Medications (Trade) Dose Ordered Sig/Sascha Route Start Time Stop Time Status Last Admin (Peridex 0.12% Liq) 15 ml BID@08,20 MT 07/05/16 08:00 08/01/16 08:19 (D50w (Vial) Inj) 25 ml UNSCH PRN IV PUSH 07/04/16 22:45 (NovoLIN R SUPPLEMENTAL SCALE) 1 Q6HR SQ 07/05/16 00:00 07/23/16 00:34 (Vitamin B1) 100 mg DAILY PO 07/08/16 09:00 08/01/16 08:19 (Theragran) 1 tab DAILY PO 07/05/16 09:00 08/01/16 08:19 (NS Flush) 2 ml UNSCH PRN IV FLUSH 07/04/16 22:45 (Tylenol) 650 mg Q6H PRN PO 07/04/16 22:45 08/01/16 08:20 (Stephie-Colace) 2 tab BID PO 07/05/16 09:00 08/01/16 08:20 Miscellaneous Information 1 Q361D XX 07/04/16 22:45 (Chlorhexidine 2% Cloth) Taper DAILY@04 TOP 07/05/16 04:00 07/01/17 03:59 08/01/16 04:00 (Chlorhexidine 2% Cloth) 3 pack UNSCH PRN TOP 07/04/16 22:45 (Haldol Inj) 5 mg Q4H PRN IV 07/06/16 13:30 07/26/16 21:46 (Melatonin) 5 mg HS PO 07/06/16 21:00 07/31/16 21:09 (Pill Splitter) 1 ea UNSCH PRN OTHER 07/07/16 07:30 (Miralax) 17 gm BID OG-TUBE 07/10/16 09:00 08/01/16 08:20 (Tears Naturale Opth Soln) 1 drop Q8HR EACH EYE 07/10/16 14:00 08/01/16 12:39 (NS Flush) DAILY IVF 07/12/16 09:00 08/01/16 08:21 (NS Flush) UNSCH PRN IVF 07/11/16 16:45 (Aspirin Chew) 324 mg DAILY CHEW 07/11/16 17:30 08/01/16 08:20 (Glycerin Adult Supp) 2 gm BID PRN RECTAL 07/12/16 06:45 07/12/16 09:58 (Trandate Inj) 10 mg Q1HR PRN IV PUSH 07/13/16 10:00 07/25/16 09:34 Heparin Sodium (Porcine) 5000 units 5,000 units Q12HR SQ 07/15/16 21:00 08/01/16 08:20 (NS 1000 ml Inj) 1,000 ml @ 10 mls/hr Q24H IV 07/15/16 19:15 07/28/16 19:15 (Apresoline Inj) 20 mg Q4H PRN IV 07/25/16 07:15 08/01/16 00:20 (Dilaudid Pf Inj) 0.25 mg Q4H PRN IV PUSH 07/30/16 17:45 08/01/16 00:20 (Provigil) 200 mg DAILY PO 07/31/16 09:00 08/01/16 08:19 (Pepcid Liq) 20 mg BID NG 07/30/16 21:00 08/01/16 08:21 (Cardura) 2 mg DAILY PO 07/31/16 09:00 08/01/16 08:20 Bumetanide 1 mg 1 mg BID@09,18 NG 07/31/16 18:00 Hold 07/31/16 17:58 (Diflucan 100 Mg Premix Bag) 50 ml @ 50 mls/hr Q24H IV 08/02/16 08:00 08/15/16 07:59 (Free Water) 300 ml Q4HR G-TUBE 08/01/16 08:00 08/01/16 12:39 (Roxicodone Intensol Liq) 5 mg Q4H PRN PO 08/01/16 09:45 Physical Exam General Appearance: No Acute Distress, Comfortable Pulmonary Resp Exam: Clear Bilaterally, Breath Sounds Equal, No Distress Cardiology CV Exam: Regular, Normal Sinus Rhythm Gastrointestinal/Abdomen GI Exam: Soft, Non-Tender Integumentary Skin Exam: Clear, Warm Extremeties Extremities Exam: No Edema Extremeties Remarks Pt's skin is wrinkled from previous volume overload. Assessment/Plan Problem List: (1) Acute kidney insufficiency Plan: Renal indices have deteriorated for the past few days. UOP remains good. Na trending upwards Agree with holding diuretics. Noted increase in free water thru NG. Will follow with labs in the AM. Medications should be adjusted for the patient's estimated GFR if clinically indicated. Avoid agents with significant potential for nephrotoxicity possible including NSAIDs for analgesia, iodine contrast agents if possible. Gadolinium is contraindicated if the GFR is below 30. I will continue to see patient intermittently. Please call with any questions. (2) Hepatitis C Plan: Not playing a role as far as his acute renal failure is concerned in this setting. (3) HTN (hypertension) Paty Rizo Aug 01, 2016 15:06
--- NOTE | 2016-08-01 16:25 | RADRPT ---
EXAM DATE/TIME: 08/01/2016 15:46 CORRECTION Corrected on: August 01, 2016; [facility] COMPARISON: CT THORAX W/O CONTRAST, August 01, 2016, 15:46. CT ABDOMEN & PELVIS W/O CONTRAST, July 13, 2016, 17: 29. INDICATIONS : Colonic ileus. ORAL CONTRAST: No oral contrast ingested. RADIATION DOSE: 18.15 CTDIvol (mGy) ; Combined studies - Thorax/Abdomen/Pelvis MEDICAL HISTORY : Hypertension. Hepatitis C. Ulcers. SURGICAL HISTORY : Aortic stents. ENCOUNTER: Initial ACUITY: 3 days PAIN SCALE: Non-responsive LOCATION: lower quadrant TECHNIQUE: Volumetric scanning of the abdomen and pelvis was performed. Using automated exposure control and ad justment of the mA and/or kV according to patient size, radiation dose was kept as low as reasonably achievable to obtain optimal diagnostic quality images. FINDINGS: CT Abdomen: There is increase in ascites throughout the abdomen and pelvis since the prior examinatio n part of which appears to be dense may be hemorrhagic. Percutaneous cholecystostomy tube has been pl aced in the interim. The liver, spleen, pancreas, left kidney, adrenals are unremarkable. There is no evidence for any appreciable pathological adenopathy, or bowel obstruction. There is a subcutaneous mainly fluid containing cystic mass in the right lower chest not present on the prior study measuring 4.3 cm in size. There are 2 stones in the right kidney the larger one measures 0.6 cm in size and no t changed. There is right lung base consolidation. Chronic vascular calcifications are present involv ing the aorta, iliac arteries without any significant stenosis or aneurysmal dilatations for techniqu e. There is no ureteral stone and there is no hydronephrosis on either side. Aortic stent is again se en. Coronary artery calcifications are seen typically seen with CAD and need to be evaluated clinical ly. There is a subcutaneous cystic lesion in the lower chest posteriorly at level of T11 discussed on the chest CT. CT pelvis: There is no evidence for mass, abscess formation, or any significant adenopathy within the pelvis. CONCLUSION: 1. Placement of percutaneous cholecystostomy tube in the interim with increase in fluid within the pe ritoneal cavity part of it appears dense probably hemorrhagic and clinical correlation is suggested. 2. Right lung base consolidation may represent pneumonia. 3. Interval development of a cystic mass in the right lower chest subcutaneous tissue not present pre viously and exact etiology is not certain. Tigist Kimball MD on August 01, 2016 at 16:17 Board Certified Radiologist. This report was verified electronically. Tigist Kimball MD on August 01, 2016 at 16:38 Board Certified Radiologist. This report was verified electronically.
--- NOTE | 2016-08-01 16:38 | RADRPT ---
EXAM DATE/TIME: 08/01/2016 15:46 [place] COMPARISON: CT ABDOMEN & PELVIS W/O CONTRAST, July 13, 2016, 17:29. INDICATIONS : Pneumonia. RADIATION DOSE: 18.15 CTDIvol (mGy) ; Combined studies - Thorax/Abdomen/Pelvis MEDICAL HISTORY : Hypertension. Hepatitis C. Ulcers. SURGICAL HISTORY : Aortic stents. ENCOUNTER: Initial ACUITY: 3 days PAIN SCALE: Non-responsive LOCATION: chest TECHNIQUE: Volumetric scanning of the chest was performed. Using automated exposure control and adjustment of t he mA and/or kV according to patient size, radiation dose was kept as low as reasonably achievable to obtain optimal diagnostic quality images. FINDINGS: Right lung base consolidation is present represent pneumonia. Coronary artery calcifications are seen typically seen with CAD and need to be evaluated clinically. aortic stent is in place. There is an approximate 4.5 cm cystic mass in subcutaneous tissues of the right lower chest. This was not pre sent on the prior CT abdomen from 07/13/2016. There is also a subcutaneous cystic lesion at the level o f T11 towards the right paracentral location appearing centrally on the study from 07/13/2016 at which time it measured 2.2 cm. There are findings in the upper abdomen discussed on the patient's CT abdome n. CONCLUSION: 1. Right lower lobe pneumonia. 2. Interval development of a cystic lesion in into subcutaneous tissue of the right lower chest with enlargement of previously seen subcutaneous lesion of the patient's back paracentral at the level of T11. Etiology is not certain. Tigist Kimball MD on August 01, 2016 at 16:24 Board Certified Radiologist. This report was verified electronically.
[2016-08-01] MEDS: SODIUM CHLOR 0.9% 1000 ML INJ 1,000 ML IV SCH (18:28)
[2016-08-01] MEDS: LACTULOSE SYRUP 20 GM/30 ML CUP PO SCH ×2 (18:38→23:45)
[2016-08-01] MEDS: RIFAXIMIN 200 MG TAB PO SCH (18:44)
[2016-08-01] MEDS: MELATONIN 5 MG TAB PO SCH (21:20)
[2016-08-02] VITALS (18 sets, daily range): BP systolic 111–144; BP diastolic 47–74; PULSE 85–111; RESP 18–28; TEMP 98.3–100.1; O2SAT 96–100
[2016-08-02] MEDS: FREE WATER G-TUBE SCH ×5 (04:00→20:00)
[2016-08-02] MEDS: CHLORHEXIDINE GLUCONATE 2 % 1 PACK (2 CLOTHS) TOP SCH (04:00)
[2016-08-02] MEDS: ARTIFICIAL TEARS OPTH SOLN 15 ML BTL EACH EYE SCH ×3 (05:01→22:00)
[2016-08-02] MEDS: LACTULOSE SYRUP 20 GM/30 ML CUP PO SCH ×3 (05:01→18:33)
[2016-08-02] MEDS: RIFAXIMIN 200 MG TAB PO SCH ×3 (05:05→18:33)
[2016-08-02] MEDS: INSULIN NovoLIN REGULAR SUPPLEMENTAL SCALE SQ SCH ×3 (05:38→18:00)
[2016-08-02 06:23] LABS: HEMATOCRIT 28.9 % (39.0-51.0); MEAN CELL VOLUME 93.8 FL (80.0-100.0); MEAN CORPUSCULAR HGB CONC 33.1 % (32.0-36.0); PLATELET COUNT 430 TH/MM3 (150-450); RED BLOOD COUNT 3.08 MIL/MM3 (4.50-5.90); RED CELL DISTRIBUTION WIDTH 14.9 % (11.6-17.2); REVIEW FLAG FINAL; WHITE BLOOD COUNT 14.2 TH/MM3 (4.0-11.0)
[2016-08-02 06:57] LABS: BICARBONATE 28.6 MEQ/L (21.0-32.0); POTASSIUM 3.9 MEQ/L (3.5-5.1)
[2016-08-02] MEDS: FLUCONAZOLE 100 MG PREMIX BAG 50 ML IV SCH (08:31)
[2016-08-02] MEDS: THIAMINE HCL 100 MG TAB PO SCH (08:32)
[2016-08-02] MEDS: CHLORHEXIDINE 0.12% (ORAL KIT) 15 ML CUP MT SCH ×2 (08:32→20:00)
[2016-08-02] MEDS: ASPIRIN 81 MG CHEW TAB CHEW SCH (08:32)
[2016-08-02] MEDS: DOXAZOSIN MESYLATE 2 MG TAB PO SCH (08:32)
[2016-08-02] MEDS: MULTIVITAMIN TAB PO SCH (08:35)
[2016-08-02] MEDS: SODIUM CHLORIDE 0.9% FLUSH 10 ML FLUSH IVF SCH (08:35)
[2016-08-02] MEDS: FAMOTIDINE 40 MG/5 ML LIQ 50 ML BTL NG SCH ×2 (08:35→20:43)
[2016-08-02] MEDS: HEPARIN SODIUM - SQ 10,000 UNITS/ML VIAL SQ SCH ×2 (08:36→20:44)
[2016-08-02] MEDS: POLYETHYLENE GLYCOL 17 GM PKG OG-TUBE SCH ×2 (08:52→20:43)
[2016-08-02] MEDS: DOCUSATE SODIUM 50 MG/SENNA 8.6 MG TAB PO SCH ×2 (08:52→20:44)
[2016-08-02] MEDS ORDERED: LACTULOSE LIQ 300 ML in WATER STERILE FOR IRR BTL 700 ML RECTAL SCH (09:00)
[2016-08-02] MEDS: MODAFINIL 200 MG TAB PO SCH (09:01)
--- NOTE | 2016-08-02 09:28 | HHI.CCPN ---
Subjective Remarks/Hospital Course Hospital Course: This is a 60-year-old male who is transferred emergently from outside hospital with per report and acute type B dissection. Apparently the patient told his family member today that he had searing back pain and was taken to the emergency department. A CT of the chest at that time showed a type B dissection. The patient was intubated the outside facility and transferred to [facility] for emergent evaluation management. Unfortunately, the patient is unable to provide any additional history at this time. I was at bedside and the patient arrived to the surgical intensive care unit. Dr. Long and I both evaluated the patient and when he arrived he was in a junctional bradycardia with heart rate in the 40s. He had obvious ST depressions in lead II on telemetry. Our initial concern was that we have extended the dissection into the type A dissection. We also did not have any CT of the abdomen and pelvis. On her physical exam, the patient had a cold left foot without pulses. I emergently placed a right radial arterial line, please see separate procedure note for details. We then went emergently to the CT scanner for repeat CT aortogram of the chest abdomen and pelvis to investigate the extent to which the dissection has extended. The CT aortogram demonstrated that this was still a type B dissection with the celiac artery being significantly compressed and possibly comprising flow from the dissection flap. The right kidney appears to be perfused off the false lumen and not the true lumen, and there is no contrast going down the left femoral artery. Patient was then brought back to the intensive care unit. His blood pressure is controlled on nicardipine infusion for goal systolic blood pressure less than 110. A 12-lead EKG at that time was done which demonstrated significant ST depressions in the inferior leads as well as the far lateral leads consistent with subendocardial ischemia. At the request of Dr. Long in anticipation of going emergently to the operative theater, I placed a lumbar drain for spinal protection, please see separate procedure note for details. At that point the patient was taken emergently to the operating room. Critical care medicine is been consulted to evaluate and manage the patient's type B dissection, hemodynamic's, acute hypoxic respiratory failure. 07/05: taken to OR for TEVAR overnight. lactate cleared overnight. uop adequate. Cr elevated to 1.8 this AM. He is on Coreg 50 mg by mouth 07/06: oliguric overnight. Cr rising. however, lactate cleared. other markers of end-organ perfusion better. likely ATN from time of dissection. awake following commands. moving bilateral lower extremities. clear CSF in lumbar drain. on intermittent norepinephrine to maintain spinal perfusion. 07/07: extubated yesterday, followed commands, good pulmonary mechanics. However , after extubation, became acutely delirious- probable combination of etoh withdraw and icu delirium, some pain. mental status waxed and waned throughout the day and ultimately reintubated overnight for worsening waning mental status and hypoxia. post-extubation it has been documented that he continues to move his bilateral lower extremities to painful stimuli and spontaneously. does not follow commands this morning. troponins downtrending. cardiology evaluated the patient yesterday, formal note pending, but per my conversation, plan was for ongoing conservative management as we are doing, and plan for nuc med stress test when stable. 07/08: still moving bilateral LEs spontaneously and w/d to pain. remains intubated with persistent agitation. hypoxia improving. platelets continue to fall, likely a combination of consumption, BUBBA, liver disease. will give unit of platelets prior to d/c lumbar drain. 07/09: Troponin spill resolving without evidence of ongoing injury. Major obstacle is agitation related to ETOH withdrawal followed by necessary sedation. Continue to work toward vent weaning. 07/10: Afebrile. Not following commands. Continues to be agitated for reasons above. Tolerating tube feeding at goal rate. Creatinine hopefully has plateaued. 07/11: CURRENT TEMPERATURE 100.2. MRI brain yesterday revealed left cellular restricted diffusion area likely acute infarct with small punctate areas within the coronal radiata possibly embolic event. Patient is arousable and will move all 4 extremities but not following commands. Left foot remains cool. Tolerating tube feeding. No bowel movement times 4 days. 07/12: Tmax 99.7. Currently 99. Noted right vertebral/distal left MCA/mid right [employer] stenosis on imaging yesterday. Central line exchange from right to left side due to bleeding. No bowel movement for tolerating tube feedings with very low residuals. Still wean sedation. 07/13: Currently afebrile. Patient with soap side enema yesterday with's positive BM 3 overnight.. Go containment device currently in place. Currently hypertensive/when necessary labetalol and clonidine will be added. Noted liberalize SCI around 120 systolic blood pressure. Arousable on the ventilator and moves all 4 extremities spontaneously but not following commands. 07/14: Tmax 99.3. No significant bowel movement overnight. Currently hypotensive. Noted SCI around 120 systolic blood pressure recommended by vascular surgery. Arousable on ventilator on sedation vacation moves all 4 extremity spontaneously but not to commands. 07/15: Afebrile. -2775 cc stool past 24 hours. Currently hypertensive. Bradycardic. Requiring antihypertensives. Plan for percutaneous cholecystostomy tube today. 07/16: Remains afebrile. CXR clearing. Renal injury without change, spontaneous urine acceptable. 07/17: No material change. Tolerates CPAP. 07/18: Family is talking with palliative Care service. 07/19: Will try CPAP with decreasing pressure support. DNR status clouds issue for extubation. 07/20: Failed SBT yesterday, could not tolerate lower pressure support. 07/21: Tolerates 5/5 SBT for several hours. Unresponsive, no eye opening today. No improvement in motor function. Extensive discussion with his brother Luis yesterday. Family is pretty consolidated in their wish to withdraw artificial support. Hopefully we can discuss options with all principals Friday. 07/22: Nods head accurately to questions today. Moves 4 limbs to command, left is minimal. 07/23: Patient nods head yes to wanting re-intubation and trach if necessary. He nods "yes" to wanting us to do everything to help him live. 07/24: Still wants trial extubation and reintubation if necessary. 07/25: Extubated 24 hours ago. Sleepy and accumulating secretions in upper airway. He will require a protected airway. His interaction with me over the past three days have all indicated that he wants us to perform a tracheostomy if he fails the extubation trial. He confirms his desire to live and remain full code status. 07/26: Stronger, more alert on trach ventilation. Dobbhoff or PEG senior care? 07/27: Renal function continues to improve. More alert, interactive. 07/28: Remains on mechanical ventilation via tracheostomy. Awake and alert. 07/29: Spiked temperature 101.3 last night. Tolerated T piece for 2 hours yesterday. 07/30: still somnolent. urine growing budding yeast. 07/31: more awake today. localizing. nonfocal. wbc elevated, low grade temps, but non-toxic appearing. 08/01: worsening encephalopathy today. still nonfocal, but either severe hypoactive delirium vs. structural problem. will obtain MRI. still with low- grade temps. Cr continues to worsen. Subjective: 08/02: persistent encephalopathy. Ammonia elevated. Cr plateaued. cultures NGTD. CT scan with ?RLL pna, but no clinical signs of pneumonia, no increased secretions or o2 requirement. just started having BMs today with lactulose which was started yesterday. Objective Vital Signs Date Time Temp Pulse Resp B/P Pulse Ox O2 Delivery O2 Flow Rate FiO2 08/02/16 07:49 100 30 08/02/16 07:00 Mechanical Ventilator 08/02/16 06:00 93 08/02/16 04:00 99.0 28 139/47 07/31/16 19:40 6.00 Intake and Output 08/01/16 08/01/16 08/02/16 08:00 16:00 00:00 Intake Total 900 ml 1985 ml 610 ml Output Total 870.0 ml 550.0 ml 690.0 ml Balance 30.0 ml 1435.0 ml -80.0 ml Result Diagram: 08/02/16 0610 08/02/16 0610 Imaging Last Impressions Chest X-Ray 07/15/16 06 Signed Impressions: Service Date/Time: Friday, July 15, 2016 04:38 - CONCLUSION: Some worsening of the bilateral pulmonary infiltrates. Joe Appiah Jr., MD Abdomen X-Ray 07/15/16 06 Signed Impressions: Service Date/Time: Friday, July 15, 2016 04:41 - CONCLUSION: No dilated bowel to suggest an obstruction. Joe Appiah Jr., MD Gall Bladder Ultrasound 07/14/16 0000 Signed Impressions: Service Date/Time: Thursday, July 14, 2016 11:36 - CONCLUSION: Abnormal gallbladder as described above. Cholecystitis would be consideration. The patient is only minimally tender around the gallbladder. Donis Hernandez MD FACR Abdomen/Pelvis CT 07/13/16 0000 Signed Impressions: Service Date/Time: Wednesday, July 13, 2016 17:29 - CONCLUSION: 1. Abnormal appearance of the gallbladder with wall thickening and possible pericholecystic fluid. No calcified stones. Recommend hepatobiliary tract scan to evaluate for acalculus cholecystitis. 2. Bilateral lower lung consolidation and bilateral pleural effusions. 3. Moderate amount of stool in the left colon. 4. Bilateral nonobstructing renal stones. Joe De Leon MD Neck Magnetic Resonance Angiography 07/11/16 0000 Signed Impressions: Service Date/Time: June 14:29 - CONCLUSION: 1. No evidence of carotid stenosis. 2. Short segment high-grade stenosis involving the mid right vertebral artery greater than 80 with a patent left vertebral artery Abhijeet Salinas MD Head Magnetic Resonance Angiography 07/11/16 0000 Signed Impressions: Service Date/Time: June 14:29 - CONCLUSION: 1. Evidence of atherosclerotic disease with focal distal left MCA branch stenosis and focal mid right [employer] stenosis. 2. No proximal high grade stenosis or aneurysm. Bladimir Gasca MD Brain MRI 07/10/16 0000 Signed Impressions: Service Date/Time: Sunday, July 10, 2016 15:03 - CONCLUSION: 1. Small punctate infarcts involving the left cerebellar hemisphere and deep white matter bilaterally in this patient with a background of amyloid angiopathy. No acute hemorrhage is seen. Abhijeet Salinas MD Renal Ultrasound 07/08/16 0000 Signed Impressions: Service Date/Time: Friday, July 08, 2016 17:16 - CONCLUSION: 1. Resistive indices could not be obtained on the right side into the patient's body habitus and shadowing bowel gas. Left renal artery resistive indices are within normal limits. 2. No significant abdominal aortic aneurysm identified status post repair. 3. Probable 7 mm nonobstructing midpole right renal calculus. 4. Tiny left lower pole cyst measuring 1.5 cm. Hamlet Vinson MD Aorta CTA 07/04/16 0000 Signed Impressions: Service Date/Time: June 19:53 - CONCLUSION: 1. Extensive aortic dissection extending from the proximal transverse aorta just distal to the origin of the left subclavian artery. Dissection extends distally through both superficial femoral arteries. 2. Occlusion of the right renal artery with absent perfusion of the right kidney. Dissection of the left renal artery with absent perfusion of the anterior left kidney. 3. 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 4. Occlusion of left external iliac artery and right internal iliac artery. 5. ET tube in satisfactory position. Dependent consolidation in both lungs. Probable mild liver cirrhosis. No obstruction or free fluid. Randle catheter in decompressed bladder. See above discussion. Rodriguez Jeff MD Objective Remarks GENERAL: 60-year-old male. HEENT: Normocephalic. Atraumatic. Pupils 3 mm, reactive, NECK: Tracheostomy in place CHEST: on PSV 10/5/40% today., Clear to auscultation, no wheezes rales or rhonchi. CARDIOVASCULAR: RRR. No JVD ABDOMEN: Non-distended, soft. No rigidity. MUSCULOSKELETAL: Distal pulses 2+. NEUROLOGICAL: somnolent, Withdraws both upper and LEs to noxious stimuli. does not localize today. not tracking today. A/P Assessment and Plan Neuro/Psych: Left cerebellar lacunar infarct Right vertebral/distal left MCA and mid right [employer] stenosis Agitated Delirium Alcohol Withdrawal - up to 15 beers daily Alcohol abuse History of polysubstance abuse including crack cocaine Lumbar drain placement - removed 07/08 Insomnia On melatonin 5 mg at night as needed for insomnia Daily thiamine 100 mg daily for EtOH use MRI brain 07/10 revealed left cerebellar cystic diffusion region with small punctate areas in the suarez radiata likely embolic. Possible amyloid. MRA head/neck revealed right vertebral 80% short segment stenosis, distal left MCA and mid right [employer] stenosis EEG 07/10 revealed no seizure activity -- MRI 08/01 with new small infarct right splenium corpus callosum. -- ammonia level 130 --> 156 Delirium/Withdraw regimen: --Haldol 5mg iv q4h prn for breakthrough agitation. -- Provigil 200mg po daily for alertness -- dilaudid to 0.25mg iv q4h prn. -- oxycodone to 5mg po q4h prn. -- Okayed with Dr. Long for aspirin 324 mg daily Respiratory: Acute hypoxic and hypercarbic respiratory failure --PSV this AM. Vent bundle. Daily C Pap/T piece trials Bronchodilator therapy every 6 hours and albuterol every 2 hours when needed Head of bed 30 Wean FiO2 for goal SPO2 greater than 92% - s/p Trach 07/25. -- daily trach collar trials. Cardiovascular: Postop T4 with left lower x-ray fasciotomy secondary to type B aortic dissection with renal/visceral and left lower extreme L perfusion Thoracic endovascular stent with left lower extremity fasciotomy/ compartments with [address] Long Acute type B dissection- secured Type II NSTEMI- Demand Ischemia- resolving Junction bradycardia- resolved. Lactic Acidosis- resolved. -- elevated troponins likely combination of demand ischemia and poor renal clearance -- Cardiology: Dr. Mondragon following. plan for conservative management with myocardial perfusion scan when stable. -- 2d echo: EF 55%, no RWMA. 2-D echo 07/08 repeat EF 60-65%. Mild MR. [facility] dilated. RENO 49 mmHg --As needed labetalol for systolic blood pressure greater than 160 Renal: Acute kidney injury Acute Tubular Necrosis Right and left nephrolithiasis Likely secondary to hypoperfusion of the kidney from dissection, ATN -- FENa 07/07 1.2% consistent with ATN. Urine eos negative. -- Strict I/Os Randle removed and condom cath placed yesterday for jenny tropicalis uti. --nephrology consult 07/08 appreciated. No indication for dialysis at this point free water 300 q4h. hold scheduled bumex add 1/2 NS @ 50cc/hr. FEN/GI: Colonic ileus Acute protein calorie malnutrition- mild Non-anion gap metabolic acidosis- resolved. Hyper-magnesium Hypernatremia History of peptic ulcer disease Hepatitis C -from IV drug use Elevated AST TF: Nepro at goal 40 cc an hour --nutrition consult. --phosLo d/c'd 07/31 for hypophosphatemia. Protonix for GI prophylaxis. Stephie-Colace twice a day for bowel regimen. MiraLAX twice a day KUB revealed 8 cm transverse colon ileus. Positive results with enema. CT abdomen/those revealed wall thickening or gallbladder. 2 right midpole no obstructing kidney stones, left circumflex continues on, to semi-bilateral pleural effusions and large amount stool left colon. s/p percutaneous cholecystostomy tube for gallbladder 07/15. Not a surgical candidate at this time. daily bmp, phos Heme/ID: Leukocytosis Acute Blood Loss Anemia Thrombocytopenia Daily CBC Febrile Daily coags --thrombocytopenia is likely multifactorial from liver disease, consumptive from critical illness and dissection. Blood cultures/sputum/urine ordered 07/11 no growth to date Pancultured 07/29 for fevers - NGTD. urine culture 07/29 jenny tropicalis -- Fluconazole 100mg iv q24h x 14 day course. Endocrine: Hyperglycemia of critical illness -- SSI, medium scale, every 6 hours Prophylaxis: GI Prophylaxis po pepcid. DVT Prophylaxis -- SCDs/heparin . Lines: 07/13 -radial arterial line - out --07/04-07/11 right IJ cortis -- Left IJ CVL 07/11 - out -- condom cath. no randle. may require replacement of randle if he has significant urinary retention. Dr. Campos spoke at length with patient's brother Luis after the procedure and we established a plan to watch him closely while he's off all sedation and reassess his mental status. Overall impression: more somnolent this morning. low-grade fevers persist. follow up cultures. daily SBTs and OOB to [facility] (formerly [facility]) . Dennis Rich MD Aug 02, 2016 09:28
[2016-08-02] MEDS: SODIUM CHLOR 0.45% 1000 ML INJ 1,000 ML IV SCH (10:26)
--- NOTE | 2016-08-02 14:50 | HHI.NPPN ---
Subjective History of Present Illness This patient is a 60-year-old male apparently with a history of previous alcohol and crack usage also has a history of hepatitis C, coronary disease and hypertension as well as medical noncompliance. Patient was admitted with a type B aortic dissection. CTA thoracic aorta and abdominal aorta performed July 04, 2016 revealed occluded right renal artery as well as perfusion only to the left posterior aspect of the left kidney. Patient status post emergent TAVA, left lower extremity fasciectomy mention of previous nonperfusion to that extremity. Patient's creatinine level was within normal range from previous records prior to this admission however patient had evidence of renal sufficiency on presentation and his creatinine level has continued to rise to a level of 4.75 Date of Consultation with marginal urine output. Interval History Patient lethargic. Review of Systems General General Remarks Unobtainable because of clinical status. Objective Data Data 08/01/16 08/02/16 19:00 07:00 Intake Total 1985 ml 1425 ml Output Total 550.0 ml 1470.0 ml Balance 1435.0 ml -45.0 ml IV Total 1041 ml Tube Feeding 344 ml 525 ml Other 600 ml 900 ml Output Urine Total 500 ml 1300 ml Tube Feeding Residual Discard 0 ml 0 ml Chest Tube Drainage Total 50 ml Drainage Total 170 ml # Bowel Movements 0 0 Vital Signs Date Time Temp Pulse Resp B/P Pulse Ox O2 Delivery O2 Flow Rate FiO2 08/02/16 14:00 85 08/02/16 12:00 86 08/02/16 12:00 98.7 86 20 111/60 97 08/02/16 12:00 30 08/02/16 11:49 97 30 08/02/16 10:00 92 08/02/16 08:00 100.1 94 24 136/74 96 08/02/16 08:00 95 08/02/16 08:00 30 08/02/16 07:49 100 30 08/02/16 07:00 98 Mechanical Ventilator 30 08/02/16 06:00 93 08/02/16 04:13 97 30 08/02/16 04:00 99.0 111 28 139/47 97 08/02/16 04:00 109 08/02/16 04:00 30 08/02/16 02:00 107 08/02/16 01:26 97 30 08/02/16 00:00 30 08/02/16 00:00 100 08/02/16 00:00 98.7 103 25 126/60 98 08/01/16 22:14 98 30 08/01/16 22:00 89 08/01/16 20:05 96 30 08/01/16 20:00 91 08/01/16 20:00 98.6 91 17 124/61 97 08/01/16 20:00 30 08/01/16 19:00 98 Mechanical Ventilator 30 Trach Collar 08/01/16 18:00 88 08/01/16 16:07 98 30 08/01/16 16:04 100 50 08/01/16 16:00 88 08/01/16 16:00 99.4 88 21 145/61 98 08/01/16 16:00 30 -: 08/02/16 0610 08/02/16 0610 Microbiology 08/01/16 Aerobic Blood Culture - Preliminary, Resulted NO GROWTH IN 1 DAY 08/01/16 Anaerobic Blood Culture - Preliminary, Resulted NO GROWTH IN 1 DAY 08/01/16 Aerobic Blood Culture - Preliminary, Resulted NO GROWTH IN 1 DAY 08/01/16 Anaerobic Blood Culture - Preliminary, Resulted NO GROWTH IN 1 DAY Physical Exam General Appearance: No Acute Distress, Comfortable Pulmonary Resp Exam: Clear Bilaterally, Breath Sounds Equal, No Distress Cardiology CV Exam: Regular, Normal Sinus Rhythm Gastrointestinal/Abdomen GI Exam: Soft, Non-Tender Integumentary Skin Exam: Clear, Warm Extremeties Extremities Exam: No Edema Assessment/Plan Problem List: (1) Acute kidney insufficiency Plan: Creatinine level improved. Hypernatremia improved. No clinical evidence of significant fluid retention. Medications should be adjusted for the patient's estimated GFR if clinically indicated. Avoid agents with significant potential for nephrotoxicity possible including NSAIDs for analgesia, iodine contrast agents if possible. Gadolinium is contraindicated if the GFR is below 30. I will continue to see patient intermittently. Please call with any questions. (2) Hepatitis C Plan: Not playing a role as far as his acute renal failure is concerned in this setting. (3) HTN (hypertension) Eufemia Walters MD Aug 02, 2016 14:50
--- NOTE | 2016-08-02 17:17 | PD.VS.PN ---
Subjective POD #: 29 Procedure(s): TEVAR, L LE fasciotomies for acute TBAD with visceral/renal/LLE malperfusion Subjective/Hospital Course Ammonia level elevation - being treated with lactulose still somnolent on ventilator but CPAP only for prolonged Objective Vitals/I&O Date Time Temp Pulse Resp B/P Pulse Ox O2 Delivery O2 Flow Rate FiO2 08/02/16 16:43 99 30 08/02/16 16:00 87 08/02/16 16:00 98.3 87 18 138/65 98 08/02/16 16:00 30 08/02/16 14:00 85 08/02/16 12:00 86 08/02/16 12:00 98.7 86 20 111/60 97 08/02/16 12:00 30 08/02/16 11:49 97 30 08/02/16 10:00 92 08/02/16 08:00 100.1 94 24 136/74 96 08/02/16 08:00 95 08/02/16 08:00 30 08/02/16 07:49 100 30 08/02/16 07:00 98 Mechanical Ventilator 30 08/02/16 06:00 93 08/02/16 04:13 97 30 08/02/16 04:00 99.0 111 28 139/47 97 08/02/16 04:00 109 08/02/16 04:00 30 08/02/16 02:00 107 08/02/16 01:26 97 30 08/02/16 00:00 30 08/02/16 00:00 100 08/02/16 00:00 98.7 103 25 126/60 98 08/01/16 22:14 98 30 08/01/16 22:00 89 08/01/16 20:05 96 30 08/01/16 20:00 91 08/01/16 20:00 98.6 91 17 124/61 97 08/01/16 20:00 30 08/01/16 19:00 98 Mechanical Ventilator 30 Trach Collar 08/01/16 18:00 88 08/02/16 08/02/16 08/02/16 07:00 15:00 23:00 Intake Total 815 ml 915 ml Output Total 780 ml 1900 ml 0 ml Balance 35 ml -985 ml 0 ml Exam: Somnolent but moves all extremities legs warm Laboratory Laboratory Tests Test 08/02/16 06:10 White Blood Count 14.2 Red Blood Count 3.08 Hemoglobin 9.6 Hematocrit 28.9 Mean Corpuscular Volume 93.8 Mean Corpuscular Hemoglobin 31.0 Mean Corpuscular Hemoglobin 33.1 Concent Red Cell Distribution Width 14.9 Platelet Count 430 Mean Platelet Volume 8.5 Sodium Level 148 Potassium Level 3.9 Chloride Level 112 Carbon Dioxide Level 28.6 Anion Gap 7 Blood Urea Nitrogen 115 Creatinine 4.77 Estimat Glomerular Filtration 13 Rate Random Glucose 138 Calcium Level 9.3 Phosphorus Level 3.6 Ammonia 156 Date/Time Procedure Status Source Growth 08/01/16 15:14 Aerobic Blood Culture - Preliminary Resulted Blood Peripheral NO GROWTH IN 1 DAY 08/01/16 15:14 Anaerobic Blood Culture - Preliminary Resulted Blood Peripheral NO GROWTH IN 1 DAY 08/01/16 12:47 Gram Stain - Final Resulted Sputum Endotracheal 08/01/16 12:47 Sputum Culture - Preliminary Resulted Sputum Endotracheal HEAVY GROWTH NORMAL RESPIRATORY KIM... 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
--- NOTE | 2016-08-02 17:50 | HHI.HCPN ---
Reason for visit a. To assist with evaluation and management of symptoms including: pain, dyspnea, encephalopathy b. To assist medical decision maker(s) with: better understanding of current medical conditions; weighing benefits/burdens of medical treatment options; making medical treatment decisions. . Subjective/Interval History Patient seen and assessed in room 1304 s/p TEVAR and LLE fasciotomy. Patient was extubated on 07/24/16 - tracheostomy placed for airway protection yesterday 07/25/16. Currently on 6L oxygen via T-piece. Persistent intermittent fevers, T-max 101.8. WBC of 14.2 Follow up blood culture and sputum cultures negative to date. Urine culture growing yeast, patient was started on IV Fluconazole. . Follow-up chest x-ray this morning showed a small infiltrate in the right lung base. Patient with persistent encephalopathy. An MRI brain this morning revealed no evidence of midline shift, mass lesion, hemorrhage or acute infarction. No extra -axial fluid collections were seen. Marked susceptibility blooming artifact on the susceptibility weighted images suggestive of amyloid angiopathy. Stable chronic white matter changes. However, there is a new area of diffusion restriction in the right side splenium of corpus callosum characteristic of a white a white matter infarct. Stable punctuate areas of increased diffusion signal in the high parietal convexity are unchanged from July 10 study and may represent T2 shine through. Ammonia level elevated, patient started on lactulose. PRN Oxycodone 10 mg PO q 4 hours for pain level I6. PRN Dilaudid decreased from 1mg to 0.25 mg q4 hours IV for pain level 7-10 or when not taking PO. PRN fentanyl has been discontinued. No pain medication administered in the past 24 hours. . Advance Directives Living Will: Never completed Health Care Surrogate: Never completed Durable Power of Cylinder Head Assembler: Never completed Advance Directive Specifics Date completed: Advance directives never completed. . Health Care Surrogate(s): No written designation of health care surrogacy. . Documented care wishes: No written documentation of health care goals/preferences. . Objective Vital Signs Date Time Temp Pulse Resp B/P Pulse Ox O2 Delivery O2 Flow Rate FiO2 08/02/16 16:43 99 30 08/02/16 16:00 87 08/02/16 16:00 98.3 87 18 138/65 98 08/02/16 16:00 30 08/02/16 14:00 85 08/02/16 12:00 86 08/02/16 12:00 98.7 86 20 111/60 97 08/02/16 12:00 30 08/02/16 11:49 97 30 08/02/16 10:00 92 08/02/16 08:00 100.1 94 24 136/74 96 08/02/16 08:00 95 08/02/16 08:00 30 08/02/16 07:49 100 30 08/02/16 07:00 98 Mechanical Ventilator 30 08/02/16 06:00 93 08/02/16 04:13 97 30 08/02/16 04:00 99.0 111 28 139/47 97 08/02/16 04:00 109 08/02/16 04:00 30 08/02/16 02:00 107 08/02/16 01:26 97 30 08/02/16 00:00 30 08/02/16 00:00 100 08/02/16 00:00 98.7 103 25 126/60 98 08/01/16 22:14 98 30 08/01/16 22:00 89 08/01/16 20:05 96 30 08/01/16 20:00 91 08/01/16 20:00 98.6 91 17 124/61 97 08/01/16 20:00 30 08/01/16 19:00 98 Mechanical Ventilator 30 Trach Collar 08/01/16 18:00 88 Intake & Output 08/02/16 08/02/16 07:00 19:00 Intake Total 1425 ml 915 ml Output Total 1470.0 ml 1900.0 ml Balance -45.0 ml -985.0 ml IV Total 159 ml Tube Feeding 525 ml 96 ml Tube Irrigant 60 ml Other 900 ml 600 ml Output Urine Total 1300 ml 250 ml Stool Total 1600 ml Tube Feeding Residual Discard 0 ml 0 ml Drainage Total 170 ml 50 ml # Voids 2 # Bowel Movements 0 3 . Physical Exam CONSTITUTIONAL/GENERAL: This is an adequately nourished patient s/p tracheostomy on 30% FiO2, PEEP 5 TUBES/LINES/DRAINS: Tracheostomy, OGT, dignishield, Russell catheter, SCD 1, soft restraints 2, cholecystostomy, PIV 2 SKIN: Incisions on left lower extremity without S/S of infection Skin is warm to touch. EYES: Pupils equal and round, and reactive. ENT: Nose without bleeding or purulent drainage. NECK: Trachea midline. CARDIOVASCULAR: Regular rate and rhythm No murmur. No JVD RESPIRATORY/CHEST: S/p tracheostomy on mechanical ventilator 10//30%. No wheezes, rales or rhonchi GASTROINTESTINAL: Abdomen distended, firm. Cholecystostomy patent GENITOURINARY: Without palpable bladder distension. Condom catheter catheter in place. MUSCULOSKELETAL: No obvious deformities. Muscle wasting noted LYMPHATICS: Not examined. NEUROLOGICAL: Withdraws to noxious stimuli PSYCHIATRIC: Unable to assess due to patient's decreased level of responsiveness. .. Diagnostic Tests Laboratory Laboratory Tests Test 07/31/16 08/01/16 08/01/16 08/02/16 03:41 03:08 15:09 06:10 White Blood Count 16.1 TH/MM3 16.7 TH/MM3 14.2 TH/MM3 (4.0-11.0) (4.0-11.0) (4.0-11.0) Red Blood Count 3.18 MIL/MM3 3.22 MIL/MM3 3.08 MIL/MM3 (4.50-5.90) (4.50-5.90) (4.50-5.90) Hemoglobin 10.2 GM/DL 9.9 GM/DL 9.6 GM/DL (13.0-17.0) (13.0-17.0) (13.0-17.0) Hematocrit 29.7 % 30.6 % 28.9 % (39.0-51.0) (39.0-51.0) (39.0-51.0) Mean Corpuscular Volume 93.4 FL 94.7 FL 93.8 FL (80.0-100.0) (80.0-100.0) (80.0-100.0) Mean Corpuscular Hemoglobin 31.9 PG 30.8 PG 31.0 PG (27.0-34.0) (27.0-34.0) (27.0-34.0) Mean Corpuscular Hemoglobin 34.2 % 32.5 % 33.1 % Concent (32.0-36.0) (32.0-36.0) (32.0-36.0) Red Cell Distribution Width 15.0 % 15.1 % 14.9 % (11.6-17.2) (11.6-17.2) (11.6-17.2) Platelet Count 503 TH/MM3 456 TH/MM3 430 TH/MM3 (150-450) (150-450) (150-450) Mean Platelet Volume 8.2 FL 8.4 FL 8.5 FL (7.0-11.0) (7.0-11.0) (7.0-11.0) Sodium Level 149 MEQ/L 150 MEQ/L 148 MEQ/L (136-145) (136-145) (136-145) Potassium Level 3.6 MEQ/L 3.7 MEQ/L 3.9 MEQ/L (3.5-5.1) (3.5-5.1) (3.5-5.1) Chloride Level 110 MEQ/L 109 MEQ/L 112 MEQ/L (98-107) (98-107) (98-107) Carbon Dioxide Level 30.4 MEQ/L 30.5 MEQ/L 28.6 MEQ/L (21.0-32.0) (21.0-32.0) (21.0-32.0) Anion Gap 9 MEQ/L (5-15) 11 MEQ/L (5-15) 7 MEQ/L (5-15) Blood Urea Nitrogen 114 MG/DL 112 MG/DL 115 MG/DL (7-18) (7-18) (7-18) Creatinine 4.51 MG/DL 4.75 MG/DL 4.77 MG/DL (0.60-1.30) (0.60-1.30) (0.60-1.30) Estimat Glomerular Filtration 13 ML/MIN (>89) 13 ML/MIN (>89) 13 ML/MIN (>89) Rate Random Glucose 139 MG/DL 126 MG/DL 138 MG/DL (74-106) (74-106) (74-106) Calcium Level 10.1 MG/DL 9.9 MG/DL 9.3 MG/DL (8.5-10.1) (8.5-10.1) (8.5-10.1) Phosphorus Level 2.2 MG/DL 2.4 MG/DL 3.6 MG/DL (2.5-4.9) (2.5-4.9) (2.5-4.9) Ammonia 130 MCMOL/L 156 MCMOL/L (11-32) (11-32) . Result Diagram: 08/02/16 0610 08/02/16 0610 Microbiology Microbiology Date/Time Procedure Status Source Growth 08/01/16 12:47 Gram Stain - Final Resulted Sputum Endotracheal 08/01/16 12:47 Sputum Culture - Preliminary Resulted Sputum Endotracheal HEAVY GROWTH NORMAL RESPIRATORY KIM... 08/01/16 15:14 Aerobic Blood Culture - Preliminary Resulted Blood Peripheral NO GROWTH IN 1 DAY 08/01/16 15:14 Anaerobic Blood Culture - Preliminary Resulted Blood Peripheral NO GROWTH IN 1 DAY 08/01/16 15:14 Aerobic Blood Culture - Preliminary Resulted Blood Peripheral NO GROWTH IN 1 DAY 08/01/16 15:14 Anaerobic Blood Culture - Preliminary Resulted Blood Peripheral NO GROWTH IN 1 DAY . Imaging Last [address] 08/01/16 0000 Signed Impressions: Service Date/Time: July 15:46 - CONCLUSION: 1. Right lower lobe pneumonia. 2. Interval development of a cystic lesion in into subcutaneous tissue of the right lower chest with enlargement of previously seen subcutaneous lesion of the patient's back paracentral at the level of T11. Etiology is not certain. Tigist Kimball MD Brain MRI 08/01/16 0000 Signed Impressions: Service Date/Time: July 11:42 - CONCLUSION: 1. Susceptibility blooming artifact on the susceptibility weighted images suggestive of amyloid angiopathy. 2. Stable chronic white matter changes. 3. However, there is a new area of diffusion restriction in the right side splenium of the corpus callosum characteristic of a white matter infarct. 4. Stable punctate areas of increased diffusion signal in the high parietal convexity are unchanged from the July 10 study and may represent T2 shine through. Luis Tierney MD Abdomen/Pelvis CT 08/01/16 0000 Signed Impressions: Service Date/Time: July 15:46 - CONCLUSION: 1. Placement of percutaneous cholecystostomy tube in the interim with increase in fluid within the peritoneal cavity part of it appears dense probably hemorrhagic and clinical correlation is suggested. 2. Right lung base consolidation may represent pneumonia. 3. Interval development of a cystic mass in the right lower chest subcutaneous tissue not present previously and exact etiology is not certain. Tigist Kimball MD . Procedures 07/04/16: Right radial arterial line placement 07/04/16: Lumbar drain placement 07/04/16: Right IJ cortis placement 07/04/16: TEVAR and LLE fasciotomy. 07/06/16: Extubation 07/07/16: Reintubation 07/08/16: Platelet transfusion 07/08/16: Lumbar drain removed 07/11/16: Right IJ cortis removed 07/11/16: Left IJ CVL placement 07/24/16: Extubated 07/25/16: Tracheostomy and bronchoscopy . 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 (2) Delirium (3) Respiratory failure (4) NSTEMI (non-ST elevated myocardial infarction) (5) Stroke Comment: MRI shows "small punctate infarcts involving the left cerebellar hemisphere and deep white matter bilaterally " in a background of amyloid angiopathy. . (6) Acute kidney insufficiency Comment: Probably a result of ischemic injury from dissection. . (7) HTN (hypertension) (8) Hepatitis C (9) Elevated troponin (10) Cholecystitis Comment: s/p cholecystostomy tube placement. . (11) COPD (chronic obstructive pulmonary disease) Symptom Scale: (1) Pain 0-10 Scale: Unable to quantify Comment: Possible causes of pain include postop surgical pain, circulation, edema, ETT, OG, invasive lines, immobility, bedbound status etc. (2) Dyspnea 0-10 Scale: Unable to quantify Comment: Status post tracheostomy on mechanical ventilator; 10//30%. . (3) Encephalopathy Comment: Worsening encephalopathy today. An MRI brain this morning revealed no evidence of midline shift, mass lesion, hemorrhage or acute infarction. No extra-axial fluid collections were seen. Marked susceptibility blooming artifact on the susceptibility weighted images suggestive of amyloid angiopathy. Stable chronic white matter changes. However, there is a new area of diffusion restriction in the right side splenium of corpus callosum characteristic of a white a white matter infarct. Stable punctuate areas of increased diffusion signal in the high parietal convexity are unchanged from July 10 study and may represent T2 shine through. Ammonia elevated, started on lactulose Pertinent Non-Medical Issues Psychosocial: Patient was born in [place] and moved to [place] as young adult. Patient has a long history of polysubstance abuse which includes EtOH consumption and crack cocaine. The patient continues to drink 8-12 beers daily. The patient has never been and has no children. His mother and 2 of his siblings live locally and a third brother lives in [place]. Patient's mother states patient has been diagnosed with oppositional defiant disorder and is a history of medical noncompliance. Prior to his hospitalization, the patient was living with an elderly gentleman and they were helping each other. 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 The patient received disability approximately 1 week prior to this hospitalization. Spiritual: Yarsanism nicolas Legal: Per [place] statutes, health care proxy decision making would fall to the patient's mother. Family members state while in the ED at [facility] patient identified his brother (Luis) as his medical decision maker, apparently the appropriate documentation and was not completed. Family members are in agreement and working together on patient's medical decisions. However the patient's mother and 2 other siblings (Olga and Jean Carlos) has opted out of decision making role, deferring to brother Luis. Ethical issues impacting care: No known ethical issues impacting care at this time . Important Contacts Nathalia Izquierdo, mother: [phone] Brother (Luis); [phone] [employer] (Chanda); [phone] Sister (Olga); [phone] Brother (Jean Carlos): [phone] . Prognosis Patient is a 60 year old man who was admitted with a type B aortic dissection. He is currently critically ill status post with TAVER and LLE fasciotomy. His past medical history is significant for polysubstance abuse (EtOH/crack cocaine) , HTN, CAD, COPD, hepatitis C/cirrhosis as well as medical noncompliance The patient currently remains orotracheally intubated and sedated. BUBBA - patient likely sustained severe ischemic injuries to both kidneys secondary to dissection involving renal arteries. It is certainly possible that this patient will be successfully extubated and upcoming days, eventually being stable enough to be discharged to SNF. However given the patient's past medical history, noncompliance, and this recent acute event, the patient has a strong probability into new decline and/or complications. . Code Status: Full Code Plan * FULL CODE * Decision-making: Per [place] statutes, health care proxy decision making would fall to the patient's mother. Family members state while in the ED at [facility] patient identified his brother (Luis) as his medical decision maker, apparently the appropriate documentation and was not completed. Family members are in agreement and working together on patient's medical decisions. However the patient's mother and 2 other siblings (Olga and Jean Carlos) has opted out of decision making role, therefore decision-making multiple to the patient' s brother Luis. * Goals: Aggressive at this time. * Symptom managementpain: Possible causes of pain include postop surgical pain , circulation, edema, tracheostomy ,OG, invasive lines, immobility, bedbound status etc. patient showing no nonverbal signs or symptoms of pain. Showing no signs of nonverbal pain. PRN Oxycodone 10 mg PO q 4 hours for pain level I 6. PRN Dilaudid decreased from 1mg to 0.25 mg q4 hours IV for pain level 7-10 or when not taking PO. PRN fentanyl has been discontinued. No medications administered in the past 24 hours. * Symptom managementencephalopathy: An MRI brain this morning revealed no evidence of midline shift, mass lesion, hemorrhage or acute infarction. No extra -axial fluid collections were seen. Marked susceptibility blooming artifact on the susceptibility weighted images suggestive of amyloid angiopathy. Stable chronic white matter changes. However, there is a new area of diffusion restriction in the right side splenium of corpus callosum characteristic of a white a white matter infarct. Stable punctuate areas of increased diffusion signal in the high parietal convexity are unchanged from July 10 study and may represent T2 shine through. Elevated ammonia, charted on lactulose * Managementdyspnea: Status post tracheostomy, remains on mechanical ventilator ; 01/16/30% * Discussed with patient's nurse and Dr. Rich. Dr. Rich will contact patient 's brother, Luis, later today with a clinical update. * Palliative care will continue to follow this patient throughout his hospitalization to establish trust, assist with symptom management and clarification of medical treatment goals. . Attestation To help prompt me to consider important information that might be impacting today's encounter and assessment, information from prior notes written by myself or my colleagues may have been "brought forward" into today's note. My signature on this note, however, is an attestation that I personally performed the exam, history, and/or decision-making noted today, and, unless otherwise indicated, the interactions with patient, family, and staff as well as the review of records all occurred today. I also attest that the listed assessment and stated plan reflect my best clinical judgment today based on the combination of historical information, prior notes, and today's exam/ interactions. When time spent is documented, it refers only to time spent today by the signer, or if indicated, combined time spent today by collaborating physician/nurse practitioner. . Vikki Liu Aug 02, 2016 17:50
[2016-08-02] MEDS: SODIUM CHLOR 0.9% 1000 ML INJ 1,000 ML IV SCH (18:33)
[2016-08-02] MEDS: MELATONIN 5 MG TAB PO SCH (20:43)
[2016-08-03] VITALS (16 sets, daily range): BP systolic 126–149; BP diastolic 60–76; PULSE 82–94; RESP 16–29; TEMP 98.5–99.4; O2SAT 97–100
[2016-08-03] MEDS: LACTULOSE SYRUP 20 GM/30 ML CUP PO SCH ×5 (00:05→23:58)
[2016-08-03] MEDS: RIFAXIMIN 200 MG TAB PO SCH ×3 (01:39→17:26)
[2016-08-03] MEDS: FREE WATER G-TUBE SCH ×7 (04:00→23:33)
[2016-08-03] MEDS: CHLORHEXIDINE GLUCONATE 2 % 1 PACK (2 CLOTHS) TOP SCH (04:00)
[2016-08-03 04:25] LABS: HEMATOCRIT 29.3 % (39.0-51.0); MEAN CORPUSCULAR HEMOGLOBIN 30.4 PG (27.0-34.0); MEAN CORPUSCULAR HGB CONC 32.3 % (32.0-36.0); PLATELET COUNT 435 TH/MM3 (150-450); RED BLOOD COUNT 3.12 MIL/MM3 (4.50-5.90); RED CELL DISTRIBUTION WIDTH 15.1 % (11.6-17.2); REVIEW FLAG FINAL; WHITE BLOOD COUNT 14.9 TH/MM3 (4.0-11.0)
[2016-08-03 04:47] LABS: BICARBONATE 24.8 MEQ/L (21.0-32.0); POTASSIUM 3.5 MEQ/L (3.5-5.1)
[2016-08-03] MEDS: SODIUM CHLOR 0.45% 1000 ML INJ 1,000 ML IV SCH ×2 (05:33→23:59)
[2016-08-03] MEDS: ARTIFICIAL TEARS OPTH SOLN 15 ML BTL EACH EYE SCH ×3 (05:33→20:22)
[2016-08-03] MEDS: INSULIN NovoLIN REGULAR SUPPLEMENTAL SCALE SQ SCH ×5 (06:00→23:33)
[2016-08-03] MEDS: FAMOTIDINE 40 MG/5 ML LIQ 50 ML BTL NG SCH ×2 (08:34→20:21)
[2016-08-03] MEDS: POLYETHYLENE GLYCOL 17 GM PKG OG-TUBE SCH ×2 (08:35→20:21)
[2016-08-03] MEDS: DOXAZOSIN MESYLATE 2 MG TAB PO SCH (08:35)
[2016-08-03] MEDS: ASPIRIN 81 MG CHEW TAB CHEW SCH (08:35)
[2016-08-03] MEDS: MULTIVITAMIN TAB PO SCH (08:35)
[2016-08-03] MEDS: SODIUM CHLORIDE 0.9% FLUSH 10 ML FLUSH IVF SCH (08:35)
[2016-08-03] MEDS: HEPARIN SODIUM - SQ 10,000 UNITS/ML VIAL SQ SCH ×2 (08:36→20:22)
[2016-08-03] MEDS: THIAMINE HCL 100 MG TAB PO SCH (08:36)
[2016-08-03] MEDS: MODAFINIL 200 MG TAB PO SCH (08:36)
[2016-08-03] MEDS: DOCUSATE SODIUM 50 MG/SENNA 8.6 MG TAB PO SCH ×2 (08:36→20:21)
[2016-08-03] MEDS: CHLORHEXIDINE 0.12% (ORAL KIT) 15 ML CUP MT SCH ×2 (08:37→20:00)
[2016-08-03] MEDS: FLUCONAZOLE 100 MG PREMIX BAG 50 ML IV SCH (08:40)
--- NOTE | 2016-08-03 09:58 | HHI.CCPN ---
Subjective Remarks/Hospital Course Hospital Course: This is a 60-year-old male who is transferred emergently from outside hospital with per report and acute type B dissection. Apparently the patient told his family member today that he had searing back pain and was taken to the emergency department. A CT of the chest at that time showed a type B dissection. The patient was intubated the outside facility and transferred to [place] for emergent evaluation management. Unfortunately, the patient is unable to provide any additional history at this time. I was at bedside and the patient arrived to the surgical intensive care unit. Dr. Long and I both evaluated the patient and when he arrived he was in a junctional bradycardia with heart rate in the 40s. He had obvious ST depressions in lead II on telemetry. Our initial concern was that we have extended the dissection into the type A dissection. We also did not have any CT of the abdomen and pelvis. On her physical exam, the patient had a cold left foot without pulses. I emergently placed a right radial arterial line, please see separate procedure note for details. We then went emergently to the CT scanner for repeat CT aortogram of the chest abdomen and pelvis to investigate the extent to which the dissection has extended. The CT aortogram demonstrated that this was still a type B dissection with the celiac artery being significantly compressed and possibly comprising flow from the dissection flap. The right kidney appears to be perfused off the false lumen and not the true lumen, and there is no contrast going down the left femoral artery. Patient was then brought back to the intensive care unit. His blood pressure is controlled on nicardipine infusion for goal systolic blood pressure less than 110. A 12-lead EKG at that time was done which demonstrated significant ST depressions in the inferior leads as well as the far lateral leads consistent with subendocardial ischemia. At the request of Dr. Long in anticipation of going emergently to the operative theater, I placed a lumbar drain for spinal protection, please see separate procedure note for details. At that point the patient was taken emergently to the operating room. Critical care medicine is been consulted to evaluate and manage the patient's type B dissection, hemodynamic's, acute hypoxic respiratory failure. 07/05: taken to OR for TEVAR overnight. lactate cleared overnight. uop adequate. Cr elevated to 1.8 this AM. He is on Coreg 50 mg by mouth 07/06: oliguric overnight. Cr rising. however, lactate cleared. other markers of end-organ perfusion better. likely ATN from time of dissection. awake following commands. moving bilateral lower extremities. clear CSF in lumbar drain. on intermittent norepinephrine to maintain spinal perfusion. 07/07: extubated yesterday, followed commands, good pulmonary mechanics. However , after extubation, became acutely delirious- probable combination of etoh withdraw and icu delirium, some pain. mental status waxed and waned throughout the day and ultimately reintubated overnight for worsening waning mental status and hypoxia. post-extubation it has been documented that he continues to move his bilateral lower extremities to painful stimuli and spontaneously. does not follow commands this morning. troponins downtrending. cardiology evaluated the patient yesterday, formal note pending, but per my conversation, plan was for ongoing conservative management as we are doing, and plan for nuc med stress test when stable. 07/08: still moving bilateral LEs spontaneously and w/d to pain. remains intubated with persistent agitation. hypoxia improving. platelets continue to fall, likely a combination of consumption, BUBBA, liver disease. will give unit of platelets prior to d/c lumbar drain. 07/09: Troponin spill resolving without evidence of ongoing injury. Major obstacle is agitation related to ETOH withdrawal followed by necessary sedation. Continue to work toward vent weaning. 07/10: Afebrile. Not following commands. Continues to be agitated for reasons above. Tolerating tube feeding at goal rate. Creatinine hopefully has plateaued. 07/11: CURRENT TEMPERATURE 100.2. MRI brain yesterday revealed left cellular restricted diffusion area likely acute infarct with small punctate areas within the coronal radiata possibly embolic event. Patient is arousable and will move all 4 extremities but not following commands. Left foot remains cool. Tolerating tube feeding. No bowel movement times 4 days. 07/12: Tmax 99.7. Currently 99. Noted right vertebral/distal left MCA/mid right PAI GOW DEALER stenosis on imaging yesterday. Central line exchange from right to left side due to bleeding. No bowel movement for tolerating tube feedings with very low residuals. Still wean sedation. 07/13: Currently afebrile. Patient with soap side enema yesterday with's positive BM 3 overnight.. Go containment device currently in place. Currently hypertensive/when necessary labetalol and clonidine will be added. Noted liberalize SCI around 120 systolic blood pressure. Arousable on the ventilator and moves all 4 extremities spontaneously but not following commands. 07/14: Tmax 99.3. No significant bowel movement overnight. Currently hypotensive. Noted SCI around 120 systolic blood pressure recommended by vascular surgery. Arousable on ventilator on sedation vacation moves all 4 extremity spontaneously but not to commands. 07/15: Afebrile. -2775 cc stool past 24 hours. Currently hypertensive. Bradycardic. Requiring antihypertensives. Plan for percutaneous cholecystostomy tube today. 07/16: Remains afebrile. CXR clearing. Renal injury without change, spontaneous urine acceptable. 07/17: No material change. Tolerates CPAP. 07/18: Family is talking with palliative Care service. 07/19: Will try CPAP with decreasing pressure support. DNR status clouds issue for extubation. 07/20: Failed SBT yesterday, could not tolerate lower pressure support. 07/21: Tolerates 5/5 SBT for several hours. Unresponsive, no eye opening today. No improvement in motor function. Extensive discussion with his brother Luis yesterday. Family is pretty consolidated in their wish to withdraw artificial support. Hopefully we can discuss options with all principals Friday. 07/22: Nods head accurately to questions today. Moves 4 limbs to command, left is minimal. 07/23: Patient nods head yes to wanting re-intubation and trach if necessary. He nods "yes" to wanting us to do everything to help him live. 07/24: Still wants trial extubation and reintubation if necessary. 07/25: Extubated 24 hours ago. Sleepy and accumulating secretions in upper airway. He will require a protected airway. His interaction with me over the past three days have all indicated that he wants us to perform a tracheostomy if he fails the extubation trial. He confirms his desire to live and remain full code status. 07/26: Stronger, more alert on trach ventilation. Dobbhoff or PEG shelter? 07/27: Renal function continues to improve. More alert, interactive. 07/28: Remains on mechanical ventilation via tracheostomy. Awake and alert. 07/29: Spiked temperature 101.3 last night. Tolerated T piece for 2 hours yesterday. 07/30: still somnolent. urine growing budding yeast. 07/31: more awake today. localizing. nonfocal. wbc elevated, low grade temps, but non-toxic appearing. 08/01: worsening encephalopathy today. still nonfocal, but either severe hypoactive delirium vs. structural problem. will obtain MRI. still with low- grade temps. Cr continues to worsen. 08/02: persistent encephalopathy. Ammonia elevated. Cr plateaued. cultures NGTD. CT scan with ?RLL pna, but no clinical signs of pneumonia, no increased secretions or o2 requirement. just started having BMs today with lactulose which was started yesterday. Subjective: 08/03: neuro exam only slightly improved. wbc still elevated. afebrile. cultures NGTD. ammonia downtrending. Cr improving. Objective Vital Signs Date Time Temp Pulse Resp B/P Pulse Ox O2 Delivery O2 Flow Rate FiO2 08/03/16 08:07 98 T-piece 6.00 28 08/03/16 06:00 84 08/03/16 04:00 98.8 16 149/76 Intake and Output 08/02/16 08/02/16 08/03/16 08:00 16:00 00:00 Intake Total 815 ml 915 ml 1012 ml Output Total 780.0 ml 1900.0 ml 1120.0 ml Balance 35.0 ml -985.0 ml -108.0 ml Result Diagram: 08/03/16 0409 08/03/16 0409 Imaging Last Impressions Chest X-Ray 07/15/16 0600 Signed Impressions: Service Date/Time: Friday, July 15, 2016 04:38 - CONCLUSION: Some worsening of the bilateral pulmonary infiltrates. Joe Appiah Jr., MD Abdomen X-Ray 07/15/16 0600 Signed Impressions: Service Date/Time: Friday, July 15, 2016 04:41 - CONCLUSION: No dilated bowel to suggest an obstruction. Joe Appiah Jr., MD Gall Bladder Ultrasound 07/14/16 0000 Signed Impressions: Service Date/Time: Thursday, July 14, 2016 11:36 - CONCLUSION: Abnormal gallbladder as described above. Cholecystitis would be consideration. The patient is only minimally tender around the gallbladder. Donis Hernandez MD FACR Abdomen/Pelvis CT 07/13/16 0000 Signed Impressions: Service Date/Time: Wednesday, July 13, 2016 17:29 - CONCLUSION: 1. Abnormal appearance of the gallbladder with wall thickening and possible pericholecystic fluid. No calcified stones. Recommend hepatobiliary tract scan to evaluate for acalculus cholecystitis. 2. Bilateral lower lung consolidation and bilateral pleural effusions. 3. Moderate amount of stool in the left colon. 4. Bilateral nonobstructing renal stones. Joe De Leon MD Neck Magnetic Resonance Angiography 07/11/16 0000 Signed Impressions: Service Date/Time: June 14:29 - CONCLUSION: 1. No evidence of carotid stenosis. 2. Short segment high-grade stenosis involving the mid right vertebral artery greater than 80 with a patent left vertebral artery Abhijeet Salinas MD Head Magnetic Resonance Angiography 07/11/16 0000 Signed Impressions: Service Date/Time: June 14:29 - CONCLUSION: 1. Evidence of atherosclerotic disease with focal distal left MCA branch stenosis and focal mid right PAI GOW DEALER stenosis. 2. No proximal high grade stenosis or aneurysm. Bladimir Gasca MD Brain MRI 07/10/16 0000 Signed Impressions: Service Date/Time: Sunday, July 10, 2016 15:03 - CONCLUSION: 1. Small punctate infarcts involving the left cerebellar hemisphere and deep white matter bilaterally in this patient with a background of amyloid angiopathy. No acute hemorrhage is seen. Abhijeet Salinas MD Renal Ultrasound 07/08/16 0000 Signed Impressions: Service Date/Time: Friday, July 08, 2016 17:16 - CONCLUSION: 1. Resistive indices could not be obtained on the right side into the patient's body habitus and shadowing bowel gas. Left renal artery resistive indices are within normal limits. 2. No significant abdominal aortic aneurysm identified status post repair. 3. Probable 7 mm nonobstructing midpole right renal calculus. 4. Tiny left lower pole cyst measuring 1.5 cm. Hamlet Vinson MD Aorta CTA 07/04/16 0000 Signed Impressions: Service Date/Time: June 19:53 - CONCLUSION: 1. Extensive aortic dissection extending from the proximal transverse aorta just distal to the origin of the left subclavian artery. Dissection extends distally through both superficial femoral arteries. 2. Occlusion of the right renal artery with absent perfusion of the right kidney. Dissection of the left renal artery with absent perfusion of the anterior left kidney. 3. 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 4. Occlusion of left external iliac artery and right internal iliac artery. 5. ET tube in satisfactory position. Dependent consolidation in both lungs. Probable mild liver cirrhosis. No obstruction or free fluid. Randle catheter in decompressed bladder. See above discussion. Rodriguez Jeff MD Objective Remarks GENERAL: 60-year-old male. HEENT: Normocephalic. Atraumatic. Pupils 3 mm, reactive, NECK: Tracheostomy in place CHEST: on PSV 10/5/40% today., Clear to auscultation, no wheezes rales or rhonchi. CARDIOVASCULAR: RRR. No JVD ABDOMEN: Non-distended, soft. No rigidity. MUSCULOSKELETAL: Distal pulses 2+. NEUROLOGICAL: somnolent, Withdraws both upper and LEs to noxious stimuli. does not localize or track. A/P Assessment and Plan Neuro/Psych: Left cerebellar lacunar infarct Right vertebral/distal left MCA and mid right PAI GOW DEALER stenosis Agitated Delirium Alcohol Withdrawal - up to 15 beers daily Alcohol abuse History of polysubstance abuse including crack cocaine Lumbar drain placement - removed 07/08 Insomnia On melatonin 5 mg at night as needed for insomnia Daily thiamine 100 mg daily for EtOH use MRI brain 07/10 revealed left cerebellar cystic diffusion region with small punctate areas in the suarez radiata likely embolic. Possible amyloid. MRA head/neck revealed right vertebral 80% short segment stenosis, distal left MCA and mid right PAI GOW DEALER stenosis EEG 07/10 revealed no seizure activity -- MRI 08/01 with new small infarct right splenium corpus callosum. -- ammonia level 130 --> 156 --> 52. continue Rifaximin and Lactulose. Delirium/Withdraw regimen: --Haldol 5mg iv q4h prn for breakthrough agitation. -- Provigil 200mg po daily for alertness -- dilaudid 0.25mg iv q4h prn. -- oxycodone 5mg po q4h prn. -- Okayed with Dr. Long for aspirin 324 mg daily Respiratory: Acute hypoxic and hypercarbic respiratory failure --PSV this AM. Vent bundle. Daily C Pap/T piece trials Bronchodilator therapy every 6 hours and albuterol every 2 hours when needed Head of bed 30 Wean FiO2 for goal SPO2 greater than 92% - s/p Trach 07/25. -- daily trach collar trials. Cardiovascular: Postop T4 with left lower x-ray fasciotomy secondary to type B aortic dissection with renal/visceral and left lower extreme L perfusion Thoracic endovascular stent with left lower extremity fasciotomy/ compartments with [address] Long Acute type B dissection- secured Type II NSTEMI- Demand Ischemia- resolving Junction bradycardia- resolved. Lactic Acidosis- resolved. -- initial elevated troponins likely combination of demand ischemia and poor renal clearance -- Cardiology: Dr. Mondragon following. plan for conservative management with myocardial perfusion scan when stable. -- 2d echo: EF 55%, no RWMA. 2-D echo 07/08 repeat EF 60-65%. Mild MR. [facility] dilated. RENO 49 mmHg --As needed labetalol for systolic blood pressure greater than 160 Renal: Acute kidney injury- resolving. Acute Tubular Necrosis Right and left nephrolithiasis Likely secondary to hypoperfusion of the kidney from dissection, ATN -- FENa 07/07 1.2% consistent with ATN. Urine eos negative. -- Strict I/Os Randle removed and condom cath placed yesterday for jenny tropicalis uti. --nephrology consult 07/08 appreciated. No indication for dialysis at this point free water 300 q4h. hold scheduled bumex continue 1/2 NS @ 50cc/hr for an additional 24h. FEN/GI: Colonic ileus Acute protein calorie malnutrition- mild Non-anion gap metabolic acidosis- resolved. Hyper-magnesium Hypernatremia History of peptic ulcer disease Hepatitis C -from IV drug use Elevated AST TF: Nepro at goal 40 cc an hour --nutrition consult. --phosLo d/c'd 07/31 for hypophosphatemia. Protonix for GI prophylaxis. Stephie-Colace twice a day for bowel regimen. MiraLAX twice a day KUB revealed 8 cm transverse colon ileus. Positive results with enema. CT abdomen/those revealed wall thickening or gallbladder. 2 right midpole no obstructing kidney stones, left circumflex continues on, to semi-bilateral pleural effusions and large amount stool left colon. s/p percutaneous cholecystostomy tube for gallbladder 07/15. Not a surgical candidate at this time. daily bmp, phos Heme/ID: Leukocytosis Acute Blood Loss Anemia Thrombocytopenia Daily CBC Febrile Daily coags --thrombocytopenia is likely multifactorial from liver disease, consumptive from critical illness and dissection. Blood cultures/sputum/urine ordered 07/11 no growth to date Pancultured 07/29 for fevers - NGTD. urine culture 07/29 jenny tropicalis -- Fluconazole 100mg iv q24h x 14 day course. Endocrine: Hyperglycemia of critical illness -- SSI, medium scale, every 6 hours Prophylaxis: GI Prophylaxis po pepcid. DVT Prophylaxis -- SCDs/heparin . Lines: 07/13 -radial arterial line - out --07/04-07/11 right IJ cortis -- Left IJ CVL 07/11 - out -- condom cath. no randle. may require replacement of randle if he has significant urinary retention. Dr. Campos spoke at length with patient's brother Luis after the procedure and we established a plan to watch him closely while he's off all sedation and reassess his mental status. Overall impression: persistently somnolent. afebrile now. cultures remain negative. will need long-term placement. continue pulmonary rehab with daily SBTs and OOB to [facility]. Dennis Rich MD Aug 03, 2016 09:58
--- NOTE | 2016-08-03 11:57 | PD.VS.PN ---
Subjective POD #: 30 Procedure(s): TEVAR, L LE fasciotomies for acute TBAD with visceral/renal/LLE malperfusion Subjective/Hospital Course Ammonia level down but still only responds to deep stimuli on Tpiece at present Objective Vitals/I&O Date Time Temp Pulse Resp B/P Pulse Ox O2 Delivery O2 Flow Rate FiO2 08/03/16 10:00 85 08/03/16 08:30 28 08/03/16 08:30 85 08/03/16 08:30 T-Piece 6.00 28 08/03/16 08:30 99.2 87 17 147/71 100 08/03/16 08:07 98 T-piece 6.00 28 08/03/16 06:00 84 08/03/16 04:00 84 08/03/16 04:00 98.8 84 16 149/76 99 08/03/16 04:00 30 08/03/16 03:42 99 30 08/03/16 02:00 82 08/03/16 00:40 100 30 08/03/16 00:00 30 08/03/16 00:00 86 08/03/16 00:00 98.5 86 20 147/73 99 08/02/16 22:00 87 08/02/16 20:42 96 30 08/02/16 20:00 98.5 90 18 144/73 98 08/02/16 20:00 90 08/02/16 20:00 30 08/02/16 19:00 98 Mechanical Ventilator 30 08/02/16 18:00 88 08/02/16 16:43 99 30 08/02/16 16:00 87 08/02/16 16:00 98.3 87 18 138/65 98 08/02/16 16:00 87 08/02/16 16:00 30 08/02/16 14:00 85 08/02/16 12:00 86 08/02/16 12:00 98.7 86 20 111/60 97 08/02/16 12:00 30 08/03/16 08/03/16 08/03/16 07:00 15:00 23:00 Intake Total 1320 ml Output Total 715 ml Balance 605 ml Exam: B LE perfused Fasciotomies healed Laboratory Laboratory Tests Test 08/03/16 04:09 White Blood Count 14.9 Red Blood Count 3.12 Hemoglobin 9.5 Hematocrit 29.3 Mean Corpuscular Volume 94.0 Mean Corpuscular Hemoglobin 30.4 Mean Corpuscular Hemoglobin 32.3 Concent Red Cell Distribution Width 15.1 Platelet Count 435 Mean Platelet Volume 8.7 Sodium Level 146 Potassium Level 3.5 Chloride Level 112 Carbon Dioxide Level 24.8 Anion Gap 9 Blood Urea Nitrogen 117 Creatinine 4.21 Estimat Glomerular Filtration 14 Rate Random Glucose 134 Calcium Level 8.7 Phosphorus Level 4.0 Ammonia 52 Date/Time Procedure Status Source Growth 08/01/16 15:14 Aerobic Blood Culture - Preliminary Resulted Blood Peripheral NO GROWTH IN 2 DAYS 08/01/16 15:14 Anaerobic Blood Culture - Preliminary Resulted Blood Peripheral NO GROWTH IN 2 DAYS 08/01/16 12:47 Gram Stain - Final Complete Sputum Endotracheal 08/01/16 12:47 Sputum Culture - Final Complete Sputum Endotracheal HEAVY GROWTH NORMAL RESPIRATORY KIM 07/29/16 13:40 Aerobic Blood Culture - Final Complete Blood Peripheral NO GROWTH IN 5 DAYS 07/29/16 13:40 Anaerobic Blood Culture - Final Complete Blood Peripheral NO GROWTH IN 5 DAYS Assessment and Plan Assessment: (1) Dissecting aneurysm of thoracic aorta, 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 Hamlet Long MD Aug 03, 2016 11:57
[2016-08-03] MEDS: SODIUM CHLOR 0.9% 1000 ML INJ 1,000 ML IV SCH (13:56)
[2016-08-03] MEDS: MELATONIN 5 MG TAB PO SCH (20:21)
[2016-08-04] VITALS (18 sets, daily range): BP systolic 110–144; BP diastolic 56–71; PULSE 92–111; RESP 12–27; TEMP 99.4–101.3; O2SAT 97–99
[2016-08-04] MEDS: RIFAXIMIN 200 MG TAB PO SCH ×3 (02:07→17:01)
[2016-08-04] MEDS: CHLORHEXIDINE GLUCONATE 2 % 1 PACK (2 CLOTHS) TOP SCH (02:46)
[2016-08-04] MEDS: FREE WATER G-TUBE SCH ×5 (03:49→19:31)
[2016-08-04 05:03] LABS: HEMATOCRIT 28.3 % (39.0-51.0); MEAN CELL VOLUME 94.1 FL (80.0-100.0); MEAN CORPUSCULAR HEMOGLOBIN 30.6 PG (27.0-34.0); MEAN CORPUSCULAR HGB CONC 32.6 % (32.0-36.0); PLATELET COUNT 438 TH/MM3 (150-450); RED BLOOD COUNT 3.01 MIL/MM3 (4.50-5.90); RED CELL DISTRIBUTION WIDTH 14.8 % (11.6-17.2); REVIEW FLAG FINAL; WHITE BLOOD COUNT 13.4 TH/MM3 (4.0-11.0)
[2016-08-04 05:14] LABS: BICARBONATE 20.2 MEQ/L (21.0-32.0); POTASSIUM 3.2 MEQ/L (3.5-5.1)
[2016-08-04] MEDS: INSULIN NovoLIN REGULAR SUPPLEMENTAL SCALE SQ SCH ×4 (05:53→23:23)
[2016-08-04] MEDS: ARTIFICIAL TEARS OPTH SOLN 15 ML BTL EACH EYE SCH ×3 (05:54→20:19)
[2016-08-04] MEDS: LACTULOSE SYRUP 20 GM/30 ML CUP PO SCH ×3 (05:54→17:01)
--- NOTE | 2016-08-04 08:27 | HHI.CCPN ---
Subjective Remarks/Hospital Course Hospital Course: This is a 60-year-old male who is transferred emergently from outside hospital with per report and acute type B dissection. Apparently the patient told his family member today that he had searing back pain and was taken to the emergency department. A CT of the chest at that time showed a type B dissection. The patient was intubated the outside facility and transferred to [place] for emergent evaluation management. Unfortunately, the patient is unable to provide any additional history at this time. I was at bedside and the patient arrived to the surgical intensive care unit. Dr. Long and I both evaluated the patient and when he arrived he was in a junctional bradycardia with heart rate in the 40s. He had obvious ST depressions in lead II on telemetry. Our initial concern was that we have extended the dissection into the type A dissection. We also did not have any CT of the abdomen and pelvis. On her physical exam, the patient had a cold left foot without pulses. I emergently placed a right radial arterial line, please see separate procedure note for details. We then went emergently to the CT scanner for repeat CT aortogram of the chest abdomen and pelvis to investigate the extent to which the dissection has extended. The CT aortogram demonstrated that this was still a type B dissection with the celiac artery being significantly compressed and possibly comprising flow from the dissection flap. The right kidney appears to be perfused off the false lumen and not the true lumen, and there is no contrast going down the left femoral artery. Patient was then brought back to the intensive care unit. His blood pressure is controlled on nicardipine infusion for goal systolic blood pressure less than 110. A 12-lead EKG at that time was done which demonstrated significant ST depressions in the inferior leads as well as the far lateral leads consistent with subendocardial ischemia. At the request of Dr. Long in anticipation of going emergently to the operative theater, I placed a lumbar drain for spinal protection, please see separate procedure note for details. At that point the patient was taken emergently to the operating room. Critical care medicine is been consulted to evaluate and manage the patient's type B dissection, hemodynamic's, acute hypoxic respiratory failure. 07/05: taken to OR for TEVAR overnight. lactate cleared overnight. uop adequate. Cr elevated to 1.8 this AM. He is on Coreg 50 mg by mouth 07/06: oliguric overnight. Cr rising. however, lactate cleared. other markers of end-organ perfusion better. likely ATN from time of dissection. awake following commands. moving bilateral lower extremities. clear CSF in lumbar drain. on intermittent norepinephrine to maintain spinal perfusion. 07/07: extubated yesterday, followed commands, good pulmonary mechanics. However , after extubation, became acutely delirious- probable combination of etoh withdraw and icu delirium, some pain. mental status waxed and waned throughout the day and ultimately reintubated overnight for worsening waning mental status and hypoxia. post-extubation it has been documented that he continues to move his bilateral lower extremities to painful stimuli and spontaneously. does not follow commands this morning. troponins downtrending. cardiology evaluated the patient yesterday, formal note pending, but per my conversation, plan was for ongoing conservative management as we are doing, and plan for nuc med stress test when stable. 07/08: still moving bilateral LEs spontaneously and w/d to pain. remains intubated with persistent agitation. hypoxia improving. platelets continue to fall, likely a combination of consumption, BUBBA, liver disease. will give unit of platelets prior to d/c lumbar drain. 07/09: Troponin spill resolving without evidence of ongoing injury. Major obstacle is agitation related to ETOH withdrawal followed by necessary sedation. Continue to work toward vent weaning. 07/10: Afebrile. Not following commands. Continues to be agitated for reasons above. Tolerating tube feeding at goal rate. Creatinine hopefully has plateaued. 07/11: CURRENT TEMPERATURE 100.2. MRI brain yesterday revealed left cellular restricted diffusion area likely acute infarct with small punctate areas within the coronal radiata possibly embolic event. Patient is arousable and will move all 4 extremities but not following commands. Left foot remains cool. Tolerating tube feeding. No bowel movement times 4 days. 07/12: Tmax 99.7. Currently 99. Noted right vertebral/distal left MCA/mid right HOG GRADER stenosis on imaging yesterday. Central line exchange from right to left side due to bleeding. No bowel movement for tolerating tube feedings with very low residuals. Still wean sedation. 07/13: Currently afebrile. Patient with soap side enema yesterday with's positive BM 3 overnight.. Go containment device currently in place. Currently hypertensive/when necessary labetalol and clonidine will be added. Noted liberalize SCI around 120 systolic blood pressure. Arousable on the ventilator and moves all 4 extremities spontaneously but not following commands. 07/14: Tmax 99.3. No significant bowel movement overnight. Currently hypotensive. Noted SCI around 120 systolic blood pressure recommended by vascular surgery. Arousable on ventilator on sedation vacation moves all 4 extremity spontaneously but not to commands. 07/15: Afebrile. -2775 cc stool past 24 hours. Currently hypertensive. Bradycardic. Requiring antihypertensives. Plan for percutaneous cholecystostomy tube today. 07/16: Remains afebrile. CXR clearing. Renal injury without change, spontaneous urine acceptable. 07/17: No material change. Tolerates CPAP. 07/18: Family is talking with palliative Care service. 07/19: Will try CPAP with decreasing pressure support. DNR status clouds issue for extubation. 07/20: Failed SBT yesterday, could not tolerate lower pressure support. 07/21: Tolerates 5/5 SBT for several hours. Unresponsive, no eye opening today. No improvement in motor function. Extensive discussion with his brother Luis yesterday. Family is pretty consolidated in their wish to withdraw artificial support. Hopefully we can discuss options with all principals Friday. 07/22: Nods head accurately to questions today. Moves 4 limbs to command, left is minimal. 07/23: Patient nods head yes to wanting re-intubation and trach if necessary. He nods "yes" to wanting us to do everything to help him live. 07/24: Still wants trial extubation and reintubation if necessary. 07/25: Extubated 24 hours ago. Sleepy and accumulating secretions in upper airway. He will require a protected airway. His interaction with me over the past three days have all indicated that he wants us to perform a tracheostomy if he fails the extubation trial. He confirms his desire to live and remain full code status. 07/26: Stronger, more alert on trach ventilation. Dobbhoff or PEG halfway? 07/27: Renal function continues to improve. More alert, interactive. 07/28: Remains on mechanical ventilation via tracheostomy. Awake and alert. 07/29: Spiked temperature 101.3 last night. Tolerated T piece for 2 hours yesterday. 07/30: still somnolent. urine growing budding yeast. 07/31: more awake today. localizing. nonfocal. wbc elevated, low grade temps, but non-toxic appearing. 08/01: worsening encephalopathy today. still nonfocal, but either severe hypoactive delirium vs. structural problem. will obtain MRI. still with low- grade temps. Cr continues to worsen. 08/02: persistent encephalopathy. Ammonia elevated. Cr plateaued. cultures NGTD. CT scan with ?RLL pna, but no clinical signs of pneumonia, no increased secretions or o2 requirement. just started having BMs today with lactulose which was started yesterday. 08/03: neuro exam only slightly improved. wbc still elevated. afebrile. cultures NGTD. ammonia downtrending. Cr improving. Subjective: 08/04: persistent encephalopathy. but fever curve continues to trend down. ammonia elevated slightly again today. wbc very slowly downtrending. cultures remain NG. Cr improved. sodium improved. Objective Vital Signs Date Time Temp Pulse Resp B/P Pulse Ox O2 Delivery O2 Flow Rate FiO2 08/04/16 07:40 30 08/04/16 07:39 98 08/04/16 06:00 98 08/04/16 04:00 99.7 20 143/67 08/03/16 19:00 T-Piece 08/03/16 08:30 6.00 Intake and Output 08/03/16 08/03/16 08/04/16 08:00 16:00 00:00 Intake Total 1320 ml 1052 ml 1052 ml Output Total 715 ml 865 ml 615 ml Balance 605 ml 187 ml 437 ml Result Diagram: 08/04/16 0416 08/04/16 0416 Other Results Microbiology Date/Time Procedure Status Source Growth 08/01/16 12:47 Gram Stain - Final Complete Sputum Endotracheal 08/01/16 12:47 Sputum Culture - Final Complete Sputum Endotracheal HEAVY GROWTH NORMAL RESPIRATORY KIM Imaging Last Impressions Chest X-Ray 07/15/16 06 Signed Impressions: Service Date/Time: Friday, July 15, 2016 04:38 - CONCLUSION: Some worsening of the bilateral pulmonary infiltrates. Joe Appiah Jr., MD Abdomen X-Ray 07/15/16 0600 Signed Impressions: Service Date/Time: Friday, July 15, 2016 04:41 - CONCLUSION: No dilated bowel to suggest an obstruction. Joe Appiah Jr., MD Gall Bladder Ultrasound 07/14/16 0000 Signed Impressions: Service Date/Time: Thursday, July 14, 2016 11:36 - CONCLUSION: Abnormal gallbladder as described above. Cholecystitis would be consideration. The patient is only minimally tender around the gallbladder. Donis Hernandez MD FACR Abdomen/Pelvis CT 07/13/16 0000 Signed Impressions: Service Date/Time: Wednesday, July 13, 2016 17:29 - CONCLUSION: 1. Abnormal appearance of the gallbladder with wall thickening and possible pericholecystic fluid. No calcified stones. Recommend hepatobiliary tract scan to evaluate for acalculus cholecystitis. 2. Bilateral lower lung consolidation and bilateral pleural effusions. 3. Moderate amount of stool in the left colon. 4. Bilateral nonobstructing renal stones. Joe De Leon MD Neck Magnetic Resonance Angiography 07/11/16 0000 Signed Impressions: Service Date/Time: June 14:29 - CONCLUSION: 1. No evidence of carotid stenosis. 2. Short segment high-grade stenosis involving the mid right vertebral artery greater than 80 with a patent left vertebral artery Abhijeet Salinas MD Head Magnetic Resonance Angiography 07/11/16 0000 Signed Impressions: Service Date/Time: June 14:29 - CONCLUSION: 1. Evidence of atherosclerotic disease with focal distal left MCA branch stenosis and focal mid right HOG GRADER stenosis. 2. No proximal high grade stenosis or aneurysm. Bladimir Gasca MD Brain MRI 07/10/16 0000 Signed Impressions: Service Date/Time: Sunday, July 10, 2016 15:03 - CONCLUSION: 1. Small punctate infarcts involving the left cerebellar hemisphere and deep white matter bilaterally in this patient with a background of amyloid angiopathy. No acute hemorrhage is seen. Abhijeet Salinas MD Renal Ultrasound 07/08/16 0000 Signed Impressions: Service Date/Time: Friday, July 08, 2016 17:16 - CONCLUSION: 1. Resistive indices could not be obtained on the right side into the patient's body habitus and shadowing bowel gas. Left renal artery resistive indices are within normal limits. 2. No significant abdominal aortic aneurysm identified status post repair. 3. Probable 7 mm nonobstructing midpole right renal calculus. 4. Tiny left lower pole cyst measuring 1.5 cm. Hamlet Vinson MD Aorta CTA 07/04/16 0000 Signed Impressions: Service Date/Time: June 19:53 - CONCLUSION: 1. Extensive aortic dissection extending from the proximal transverse aorta just distal to the origin of the left subclavian artery. Dissection extends distally through both superficial femoral arteries. 2. Occlusion of the right renal artery with absent perfusion of the right kidney. Dissection of the left renal artery with absent perfusion of the anterior left kidney. 3. 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 4. Occlusion of left external iliac artery and right internal iliac artery. 5. ET tube in satisfactory position. Dependent consolidation in both lungs. Probable mild liver cirrhosis. No obstruction or free fluid. Randle catheter in decompressed bladder. See above discussion. Rodriguez Jeff MD Objective Remarks GENERAL: 60-year-old male, lying in bed, critically ill. HEENT: Normocephalic. Atraumatic. Pupils 3 mm, reactive, NECK: Tracheostomy in place CHEST: on PSV 15/5/40% today., Clear to auscultation, no wheezes rales or rhonchi. CARDIOVASCULAR: RRR. No JVD ABDOMEN: Non-distended, soft. No rigidity. MUSCULOSKELETAL: Distal pulses 2+. NEUROLOGICAL: somnolent, Withdraws both upper and LEs to noxious stimuli. does not localize or track. 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 Possible amyloid. MRA head/neck revealed right vertebral 80% short segment stenosis, distal left MCA and mid right HOG GRADER stenosis EEG 07/10 revealed no seizure activity -- MRI 08/01 with new small infarct right splenium corpus callosum. -- ammonia level 130 --> 156 --> 52 --> 96. continue Rifaximin and Lactulose. Delirium/Withdraw regimen: --Haldol 5mg iv q4h prn for breakthrough agitation. -- Provigil 200mg po daily for alertness -- dilaudid 0.25mg iv q4h prn. -- oxycodone 5mg po q4h prn. -- Okayed with Dr. Long for aspirin 324 mg daily Respiratory: Acute hypoxic and hypercarbic respiratory failure --PSV this AM. Vent bundle. Daily C Pap/T piece trials Bronchodilator therapy every 6 hours and albuterol every 2 hours when needed Head of bed 30 Wean FiO2 for goal SPO2 greater than 92% - s/p Trach 07/25. -- daily trach collar trials. Cardiovascular: Postop T4 with left lower x-ray fasciotomy secondary to type B aortic dissection with renal/visceral and left lower extreme L perfusion Thoracic endovascular stent with left lower extremity fasciotomy/ compartments with [address] Long Acute type B dissection- secured Type II NSTEMI- Demand Ischemia- resolving Junction bradycardia- resolved. Lactic Acidosis- resolved. -- initial elevated troponins likely combination of demand ischemia and poor renal clearance -- Cardiology: Dr. Mondragon following. plan for conservative management with myocardial perfusion scan when stable. -- 2d echo: EF 55%, no RWMA. 2-D echo 07/08 repeat EF 60-65%. Mild MR. [facility] dilated. RENO 49 mmHg --As needed labetalol for systolic blood pressure greater than 160 Renal: Acute kidney injury- resolving. Acute Tubular Necrosis Right and left nephrolithiasis Likely secondary to hypoperfusion of the kidney from dissection, ATN -- FENa 07/07 1.2% consistent with ATN. Urine eos negative. -- Strict I/Os Randle removed and condom cath placed yesterday for jenny tropicalis uti. --nephrology consult 07/08 appreciated. No indication for dialysis at this point free water 300 q4h. hold scheduled bumex d/c 04/15 NS today. sodium improved. FEN/GI: Colonic ileus Acute protein calorie malnutrition- mild Non-anion gap metabolic acidosis- resolved. Hyper-magnesium Hypernatremia History of peptic ulcer disease Hepatitis C -from IV drug use Elevated AST TF: Nepro at goal 40 cc an hour --nutrition consult. --phosLo d/c'd 07/31 for hypophosphatemia. Protonix for GI prophylaxis. Stephie-Colace twice a day for bowel regimen. MiraLAX twice a day KUB revealed 8 cm transverse colon ileus. Positive results with enema. CT abdomen/those revealed wall thickening or gallbladder. 2 right midpole no obstructing kidney stones, left circumflex continues on, to semi-bilateral pleural effusions and large amount stool left colon. s/p percutaneous cholecystostomy tube for gallbladder 07/15. Not a surgical candidate at this time. daily bmp, phos Heme/ID: Leukocytosis Acute Blood Loss Anemia Thrombocytopenia Daily CBC --thrombocytopenia is likely multifactorial from liver disease, consumptive from critical illness and dissection. Blood cultures/sputum/urine ordered 07/11 no growth to date Pancultured 07/29 for fevers - NGTD. urine culture 07/29 jenny tropicalis -- Fluconazole 100mg iv q24h x 14 day course. anticipated stop date 08/15 -- Procalcitonin 08/03 0.76 making him "moderate risk" of infectious etiology. would recommend trending this over the course of his treatment to ensure we are not missing secondary infection -- will continue to hold off on broad spectrum abx as patient is clinically improving. Endocrine: Hyperglycemia of critical illness -- SSI, medium scale, every 6 hours Prophylaxis: GI Prophylaxis po pepcid. DVT Prophylaxis -- SCDs/heparin . Lines: 07/13 -radial arterial line - out --07/04-07/11 right IJ cortis -- Left IJ CVL 07/11 - out -- condom cath. no randle. may require replacement of randle if he has significant urinary retention. Dr. Campos spoke at length with patient's brother Luis after the procedure and we established a plan to watch him closely while he's off all sedation and reassess his mental status. Overall impression: persistently somnolent. afebrile now. cultures remain negative. will need long-term placement. continue pulmonary rehab with daily SBTs and [facility]OB [facility]. Dennis Rich MD Aug 04, 2016 08:27
[2016-08-04] MEDS: CHLORHEXIDINE 0.12% (ORAL KIT) 15 ML CUP MT SCH ×2 (08:37→19:31)
[2016-08-04] MEDS: DOCUSATE SODIUM 50 MG/SENNA 8.6 MG TAB PO SCH ×2 (08:46→20:19)
[2016-08-04] MEDS: HEPARIN SODIUM - SQ 10,000 UNITS/ML VIAL SQ SCH ×2 (08:46→20:18)
[2016-08-04] MEDS: POLYETHYLENE GLYCOL 17 GM PKG OG-TUBE SCH ×2 (08:46→20:18)
[2016-08-04] MEDS: DOXAZOSIN MESYLATE 2 MG TAB PO SCH (08:46)
[2016-08-04] MEDS: MULTIVITAMIN TAB PO SCH (08:47)
[2016-08-04] MEDS: SODIUM CHLORIDE 0.9% FLUSH 10 ML FLUSH IVF SCH (08:47)
[2016-08-04] MEDS: MODAFINIL 200 MG TAB PO SCH (08:47)
[2016-08-04] MEDS: ASPIRIN 81 MG CHEW TAB CHEW SCH (08:47)
[2016-08-04] MEDS: THIAMINE HCL 100 MG TAB PO SCH (08:47)
[2016-08-04] MEDS: FLUCONAZOLE 100 MG PREMIX BAG 50 ML IV SCH (08:49)
[2016-08-04] MEDS: FAMOTIDINE 40 MG/5 ML LIQ 50 ML BTL NG SCH ×2 (08:49→20:18)
--- NOTE | 2016-08-04 08:53 | PD.VS.PN ---
Subjective POD #: [phone] Procedure(s): TEVAR, L LE fasciotomies for acute TBAD with visceral/renal/LLE malperfusion Subjective/Hospital Course Ammonia level back up and mental status not improved creatinine down on Tpiece all day yesterday but now resting on CPAP for tachypnea Objective Vitals/I&O Date Time Temp Pulse Resp B/P Pulse Ox O2 Delivery O2 Flow Rate FiO2 08/04/16 07:40 30 08/04/16 07:39 98 30 08/04/16 06:00 98 08/04/16 04:53 97 30 08/04/16 04:00 99.7 96 20 143/67 98 08/04/16 04:00 30 08/04/16 04:00 96 08/04/16 02:00 94 08/04/16 01:32 98 30 08/04/16 00:00 92 08/04/16 00:00 99.4 92 26 131/67 98 08/04/16 00:00 30 08/03/16 22:40 98 30 08/03/16 22:00 92 08/03/16 20:00 90 08/03/16 20:00 99.4 90 29 130/60 98 08/03/16 20:00 28 08/03/16 19:00 100 T-Piece 28 08/03/16 18:00 88 08/03/16 16:00 99.3 94 25 126/62 97 08/03/16 16:00 94 08/03/16 16:00 28 08/03/16 14:00 90 08/03/16 12:00 28 08/03/16 12:00 87 08/03/16 12:00 99.0 87 23 139/67 100 08/03/16 10:00 85 08/04/16 08/04/16 08/04/16 07:00 15:00 23:00 Intake Total 1374 ml Output Total 1020 ml Balance 354 ml Exam: withdraws R>L reportedly - resting comfortably now Abd soft, NT Feet perfused L fasciotomy incisions healing Laboratory Laboratory Tests Test 08/04/16 04:16 White Blood Count 13.4 Red Blood Count 3.01 Hemoglobin 9.2 Hematocrit 28.3 Mean Corpuscular Volume 94.1 Mean Corpuscular Hemoglobin 30.6 Mean Corpuscular Hemoglobin 32.6 Concent Red Cell Distribution Width 14.8 Platelet Count 438 Mean Platelet Volume 8.8 Sodium Level 141 Potassium Level 3.2 Chloride Level 110 Carbon Dioxide Level 20.2 Anion Gap 11 Blood Urea Nitrogen 103 Creatinine 3.64 Estimat Glomerular Filtration 17 Rate Random Glucose 128 Calcium Level 8.7 Phosphorus Level 3.8 Ammonia 96 Date/Time Procedure Status Source Growth 08/01/16 15:14 Aerobic Blood Culture - Preliminary Resulted Blood Peripheral NO GROWTH IN 2 DAYS 08/01/16 15:14 Anaerobic Blood Culture - Preliminary Resulted Blood Peripheral NO GROWTH IN 2 DAYS 08/01/16 12:47 Gram Stain - Final Complete Sputum Endotracheal 08/01/16 12:47 Sputum Culture - Final Complete Sputum Endotracheal HEAVY GROWTH NORMAL RESPIRATORY KIM Assessment and Plan Assessment: (1) Dissecting aneurysm of thoracic aorta, 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 - Heart and Vascular Surgery at [facility] Hamlet Long MD Aug 04, 2016 08:53
[2016-08-04] MEDS: ACETAMINOPHEN 325 MG TAB PO PRN ×2 (09:42→16:03)
[2016-08-04] MEDS ORDERED: POTASSIUM CHLOR 40 MEQ PREMIX 100 ML IV ONE (15:15)
[2016-08-04] MEDS: POTASSIUM CHLOR 20 MEQ PREMIX 100 ML IV SCH ×2 (15:54→17:01)
[2016-08-04] MEDS: SODIUM CHLOR 0.9% 1000 ML INJ 1,000 ML IV SCH (19:31)
[2016-08-04] MEDS: MELATONIN 5 MG TAB PO SCH (20:18)
[2016-08-05] VITALS (18 sets, daily range): BP systolic 117–170; BP diastolic 62–79; PULSE 82–100; RESP 17–30; TEMP 97.7–99.3; O2SAT 95–100
[2016-08-05] MEDS: RIFAXIMIN 200 MG TAB PO SCH ×3 (00:06→18:06)
[2016-08-05] MEDS: LACTULOSE SYRUP 20 GM/30 ML CUP PO SCH ×5 (00:06→18:06)
[2016-08-05] MEDS: CHLORHEXIDINE GLUCONATE 2 % 1 PACK (2 CLOTHS) TOP SCH (02:47)
[2016-08-05] MEDS: FREE WATER G-TUBE SCH ×7 (03:19→23:39)
[2016-08-05 04:17] LABS: HEMATOCRIT 27.4 % (39.0-51.0); MEAN CELL VOLUME 93.6 FL (80.0-100.0); MEAN CORPUSCULAR HEMOGLOBIN 30.7 PG (27.0-34.0); MEAN CORPUSCULAR HGB CONC 32.8 % (32.0-36.0); PLATELET COUNT 408 TH/MM3 (150-450); RED BLOOD COUNT 2.93 MIL/MM3 (4.50-5.90); RED CELL DISTRIBUTION WIDTH 14.9 % (11.6-17.2); REVIEW FLAG FINAL; WHITE BLOOD COUNT 13.3 TH/MM3 (4.0-11.0)
[2016-08-05 04:26] LABS: BICARBONATE 20.1 MEQ/L (21.0-32.0); POTASSIUM 3.6 MEQ/L (3.5-5.1)
[2016-08-05] MEDS: INSULIN NovoLIN REGULAR SUPPLEMENTAL SCALE SQ SCH ×4 (05:12→23:39)
[2016-08-05] MEDS: ARTIFICIAL TEARS OPTH SOLN 15 ML BTL EACH EYE SCH ×3 (05:13→20:46)
[2016-08-05] MEDS: FLUCONAZOLE 100 MG PREMIX BAG 50 ML IV SCH (09:42)
[2016-08-05] MEDS: THIAMINE HCL 100 MG TAB PO SCH (09:45)
[2016-08-05] MEDS: MULTIVITAMIN TAB PO SCH (09:45)
[2016-08-05] MEDS: POLYETHYLENE GLYCOL 17 GM PKG OG-TUBE SCH ×2 (09:45→20:45)
[2016-08-05] MEDS: ASPIRIN 81 MG CHEW TAB CHEW SCH (09:45)
[2016-08-05] MEDS: DOXAZOSIN MESYLATE 2 MG TAB PO SCH (09:45)
[2016-08-05] MEDS: MODAFINIL 200 MG TAB PO SCH (09:45)
[2016-08-05] MEDS: DOCUSATE SODIUM 50 MG/SENNA 8.6 MG TAB PO SCH ×2 (09:45→20:42)
[2016-08-05] MEDS: SODIUM CHLORIDE 0.9% FLUSH 10 ML FLUSH IVF SCH (09:46)
[2016-08-05] MEDS: CHLORHEXIDINE 0.12% (ORAL KIT) 15 ML CUP MT SCH ×2 (09:46→20:29)
[2016-08-05] MEDS: HEPARIN SODIUM - SQ 10,000 UNITS/ML VIAL SQ SCH ×2 (10:16→20:46)
[2016-08-05] MEDS: FAMOTIDINE 40 MG/5 ML LIQ 50 ML BTL NG SCH ×2 (10:22→20:46)
--- NOTE | 2016-08-05 13:28 | HHI.CCPN ---
Subjective Remarks/Hospital Course Hospital Course: This is a 60-year-old male who is transferred emergently from outside hospital with per report and acute type B dissection. Apparently the patient told his family member today that he had searing back pain and was taken to the emergency department. A CT of the chest at that time showed a type B dissection. The patient was intubated the outside facility and transferred to [facility] for emergent evaluation management. Unfortunately, the patient is unable to provide any additional history at this time. I was at bedside and the patient arrived to the surgical intensive care unit. Dr. Long and I both evaluated the patient and when he arrived he was in a junctional bradycardia with heart rate in the 40s. He had obvious ST depressions in lead II on telemetry. Our initial concern was that we have extended the dissection into the type A dissection. We also did not have any CT of the abdomen and pelvis. On her physical exam, the patient had a cold left foot without pulses. I emergently placed a right radial arterial line, please see separate procedure note for details. We then went emergently to the CT scanner for repeat CT aortogram of the chest abdomen and pelvis to investigate the extent to which the dissection has extended. The CT aortogram demonstrated that this was still a type B dissection with the celiac artery being significantly compressed and possibly comprising flow from the dissection flap. The right kidney appears to be perfused off the false lumen and not the true lumen, and there is no contrast going down the left femoral artery. Patient was then brought back to the intensive care unit. His blood pressure is controlled on nicardipine infusion for goal systolic blood pressure less than 110. A 12-lead EKG at that time was done which demonstrated significant ST depressions in the inferior leads as well as the far lateral leads consistent with subendocardial ischemia. At the request of Dr. Long in anticipation of going emergently to the operative theater, I placed a lumbar drain for spinal protection, please see separate procedure note for details. At that point the patient was taken emergently to the operating room. Critical care medicine is been consulted to evaluate and manage the patient's type B dissection, hemodynamic's, acute hypoxic respiratory failure. 07/05: taken to OR for TEVAR overnight. lactate cleared overnight. uop adequate. Cr elevated to 1.8 this AM. He is on Coreg 50 mg by mouth 07/06: oliguric overnight. Cr rising. however, lactate cleared. other markers of end-organ perfusion better. likely ATN from time of dissection. awake following commands. moving bilateral lower extremities. clear CSF in lumbar drain. on intermittent norepinephrine to maintain spinal perfusion. 07/07: extubated yesterday, followed commands, good pulmonary mechanics. However , after extubation, became acutely delirious- probable combination of etoh withdraw and icu delirium, some pain. mental status waxed and waned throughout the day and ultimately reintubated overnight for worsening waning mental status and hypoxia. post-extubation it has been documented that he continues to move his bilateral lower extremities to painful stimuli and spontaneously. does not follow commands this morning. troponins downtrending. cardiology evaluated the patient yesterday, formal note pending, but per my conversation, plan was for ongoing conservative management as we are doing, and plan for nuc med stress test when stable. 07/08: still moving bilateral LEs spontaneously and w/d to pain. remains intubated with persistent agitation. hypoxia improving. platelets continue to fall, likely a combination of consumption, BUBBA, liver disease. will give unit of platelets prior to d/c lumbar drain. 07/09: Troponin spill resolving without evidence of ongoing injury. Major obstacle is agitation related to ETOH withdrawal followed by necessary sedation. Continue to work toward vent weaning. 07/10: Afebrile. Not following commands. Continues to be agitated for reasons above. Tolerating tube feeding at goal rate. Creatinine hopefully has plateaued. 07/11: CURRENT TEMPERATURE 100.2. MRI brain yesterday revealed left cellular restricted diffusion area likely acute infarct with small punctate areas within the coronal radiata possibly embolic event. Patient is arousable and will move all 4 extremities but not following commands. Left foot remains cool. Tolerating tube feeding. No bowel movement times 4 days. 07/12: Tmax 99.7. Currently 99. Noted right vertebral/distal left MCA/mid right [employer] stenosis on imaging yesterday. Central line exchange from right to left side due to bleeding. No bowel movement for tolerating tube feedings with very low residuals. Still wean sedation. 07/13: Currently afebrile. Patient with soap side enema yesterday with's positive BM 3 overnight.. Go containment device currently in place. Currently hypertensive/when necessary labetalol and clonidine will be added. Noted liberalize SCI around 120 systolic blood pressure. Arousable on the ventilator and moves all 4 extremities spontaneously but not following commands. 07/14: Tmax 99.3. No significant bowel movement overnight. Currently hypotensive. Noted SCI around 120 systolic blood pressure recommended by vascular surgery. Arousable on ventilator on sedation vacation moves all 4 extremity spontaneously but not to commands. 07/15: Afebrile. -2775 cc stool past 24 hours. Currently hypertensive. Bradycardic. Requiring antihypertensives. Plan for percutaneous cholecystostomy tube today. 07/16: Remains afebrile. CXR clearing. Renal injury without change, spontaneous urine acceptable. 07/17: No material change. Tolerates CPAP. 07/18: Family is talking with palliative Care service. 07/19: Will try CPAP with decreasing pressure support. DNR status clouds issue for extubation. 07/20: Failed SBT yesterday, could not tolerate lower pressure support. 07/21: Tolerates 5/5 SBT for several hours. Unresponsive, no eye opening today. No improvement in motor function. Extensive discussion with his brother Luis yesterday. Family is pretty consolidated in their wish to withdraw artificial support. Hopefully we can discuss options with all principals Friday. 07/22: Nods head accurately to questions today. Moves 4 limbs to command, left is minimal. 07/23: Patient nods head yes to wanting re-intubation and trach if necessary. He nods "yes" to wanting us to do everything to help him live. 07/24: Still wants trial extubation and reintubation if necessary. 07/25: Extubated 24 hours ago. Sleepy and accumulating secretions in upper airway. He will require a protected airway. His interaction with me over the past three days have all indicated that he wants us to perform a tracheostomy if he fails the extubation trial. He confirms his desire to live and remain full code status. 07/26: Stronger, more alert on trach ventilation. Dobbhoff or PEG group home? 07/27: Renal function continues to improve. More alert, interactive. 07/28: Remains on mechanical ventilation via tracheostomy. Awake and alert. 07/29: Spiked temperature 101.3 last night. Tolerated T piece for 2 hours yesterday. 07/30: still somnolent. urine growing budding yeast. 07/31: more awake today. localizing. nonfocal. wbc elevated, low grade temps, but non-toxic appearing. 08/01: worsening encephalopathy today. still nonfocal, but either severe hypoactive delirium vs. structural problem. will obtain MRI. still with low- grade temps. Cr continues to worsen. 08/02: persistent encephalopathy. Ammonia elevated. Cr plateaued. cultures NGTD. CT scan with ?RLL pna, but no clinical signs of pneumonia, no increased secretions or o2 requirement. just started having BMs today with lactulose which was started yesterday. 08/03: neuro exam only slightly improved. wbc still elevated. afebrile. cultures NGTD. ammonia downtrending. Cr improving. Subjective: 08/04: persistent encephalopathy. but fever curve continues to trend down. ammonia elevated slightly again today. wbc very slowly downtrending. cultures remain NG. Cr improved. sodium improved. 08/05: Afebrile, WBC stable. Creat improved from 3.6 to 3.4 UO 975 ml in 24 hours. Follows commands in RLE to RN Objective Vital Signs Date Time Temp Pulse Resp B/P Pulse Ox O2 Delivery O2 Flow Rate FiO2 08/05/16 12:00 30 08/05/16 12:00 99.0 92 30 157/72 100 08/05/16 07:00 Mechanical Ventilator 08/04/16 08:00 6.00 Intake and Output 08/04/16 08/04/16 08/05/16 08:00 16:00 00:00 Intake Total 1374 ml 1231 ml 951 ml Output Total 1020 ml 476 ml 530 ml Balance 354 ml 755 ml 421 ml Result Diagram: 08/05/16 0341 08/05/16 0341 Imaging Last Impressions Chest X-Ray 07/15/16 06 Signed Impressions: Service Date/Time: Friday, July 15, 2016 04:38 - CONCLUSION: Some worsening of the bilateral pulmonary infiltrates. Joe Appiah Jr., MD Abdomen X-Ray 07/15/16 06 Signed Impressions: Service Date/Time: Friday, July 15, 2016 04:41 - CONCLUSION: No dilated bowel to suggest an obstruction. Joe Appiah Jr., MD Gall Bladder Ultrasound 07/14/16 0000 Signed Impressions: Service Date/Time: Thursday, July 14, 2016 11:36 - CONCLUSION: Abnormal gallbladder as described above. Cholecystitis would be consideration. The patient is only minimally tender around the gallbladder. Donis Hernandez MD FACR Abdomen/Pelvis CT 07/13/16 Signed Impressions: Service Date/Time: Wednesday, July 13, 2016 17:29 - CONCLUSION: 1. Abnormal appearance of the gallbladder with wall thickening and possible pericholecystic fluid. No calcified stones. Recommend hepatobiliary tract scan to evaluate for acalculus cholecystitis. 2. Bilateral lower lung consolidation and bilateral pleural effusions. 3. Moderate amount of stool in the left colon. 4. Bilateral nonobstructing renal stones. Joe De Leon MD Neck Magnetic Resonance Angiography 07/11/16 0000 Signed Impressions: Service Date/Time: June 14:29 - CONCLUSION: 1. No evidence of carotid stenosis. 2. Short segment high-grade stenosis involving the mid right vertebral artery greater than 80 with a patent left vertebral artery Abhijeet Salinas MD Head Magnetic Resonance Angiography 07/11/16 0000 Signed Impressions: Service Date/Time: June 14:29 - CONCLUSION: 1. Evidence of atherosclerotic disease with focal distal left MCA branch stenosis and focal mid right [employer] stenosis. 2. No proximal high grade stenosis or aneurysm. Bladimir Gasca MD Brain MRI 07/10/16 0000 Signed Impressions: Service Date/Time: Sunday, July 10, 2016 15:03 - CONCLUSION: 1. Small punctate infarcts involving the left cerebellar hemisphere and deep white matter bilaterally in this patient with a background of amyloid angiopathy. No acute hemorrhage is seen. Abhijeet Salinas MD Renal Ultrasound 07/08/16 0000 Signed Impressions: Service Date/Time: Friday, July 08, 2016 17:16 - CONCLUSION: 1. Resistive indices could not be obtained on the right side into the patient's body habitus and shadowing bowel gas. Left renal artery resistive indices are within normal limits. 2. No significant abdominal aortic aneurysm identified status post repair. 3. Probable 7 mm nonobstructing midpole right renal calculus. 4. Tiny left lower pole cyst measuring 1.5 cm. Hamlet Vinson MD Aorta CTA 07/04/16 0000 Signed Impressions: Service Date/Time: June 19:53 - CONCLUSION: 1. Extensive aortic dissection extending from the proximal transverse aorta just distal to the origin of the left subclavian artery. Dissection extends distally through both superficial femoral arteries. 2. Occlusion of the right renal artery with absent perfusion of the right kidney. Dissection of the left renal artery with absent perfusion of the anterior left kidney. 3. 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 4. Occlusion of left external iliac artery and right internal iliac artery. 5. ET tube in satisfactory position. Dependent consolidation in both lungs. Probable mild liver cirrhosis. No obstruction or free fluid. Randle catheter in decompressed bladder. See above discussion. Rodriguez Jeff MD Objective Remarks GENERAL: 60-year-old male, lying in bed, critically ill. HEENT: Normocephalic. Atraumatic. Pupils 3 mm, reactive, NECK: Tracheostomy in place CHEST: on PSV 15/5/40% today., Clear to auscultation, no wheezes rales or rhonchi. CARDIOVASCULAR: RRR. No JVD ABDOMEN: Non-distended, soft. No rigidity. MUSCULOSKELETAL: Distal pulses 2+. NEUROLOGICAL: somnolent, Withdraws both upper and LEs to noxious stimuli. Follows commands with RLE to RN A/P Assessment and Plan Neuro/Psych: Left cerebellar lacunar infarct Right vertebral/distal left MCA and mid right [employer] stenosis Agitated Delirium Alcohol Withdrawal - up to 15 beers daily Alcohol dependence History of polysubstance abuse including crack cocaine Lumbar drain placement - removed 07/08 Insomnia On melatonin 5 mg at night as needed for insomnia Daily thiamine 100 mg daily for EtOH use MRI brain 07/10 revealed left cerebellar cystic diffusion region with small punctate areas in the suarez radiata likely embolic. Possible amyloid. MRA head/neck revealed right vertebral 80% short segment stenosis, distal left MCA and mid right [employer] stenosis EEG 07/10 revealed no seizure activity -- MRI 08/01 with new small infarct right splenium corpus callosum. -- ammonia level 130 --> 156 --> 52 --> 96 -->76. continue Rifaximin and Lactulose. Delirium/Withdraw regimen: --Haldol 5mg iv q4h prn for breakthrough agitation. -- Provigil 200mg po daily for alertness -- dilaudid 0.25mg iv q4h prn. -- oxycodone 5mg po q4h prn. -- Okayed with Dr. Long for aspirin 324 mg daily Respiratory: Acute hypoxic and hypercarbic respiratory failure --PSV Vent bundle. Daily C Pap/T piece trials Bronchodilator therapy every 6 hours and albuterol every 2 hours when needed Head of bed 30 Wean FiO2 for goal SPO2 greater than 90% - s/p Trach 07/25. -- daily trach collar trials. Cardiovascular: Postop TEVAR with left lower ext fasciotomy secondary to type B aortic dissection with renal/visceral and left lower extreme L perfusion Thoracic endovascular stent with left lower extremity fasciotomy/ compartments with [address] Long Acute type B dissection- secured Type II NSTEMI- Demand Ischemia- resolving Junction bradycardia- resolved. Lactic Acidosis- resolved. -- initial elevated troponins likely combination of demand ischemia and poor renal clearance -- Cardiology: Dr. Mondragon following. plan for conservative management with myocardial perfusion scan when stable. -- 2d echo: EF 55%, no RWMA. 2-D echo 07/08 repeat EF 60-65%. Mild MR. [facility] dilated. RENO 49 mmHg --As needed labetalol for systolic blood pressure greater than 160 Renal: Acute kidney injury- resolving. Acute Tubular Necrosis Right and left nephrolithiasis Likely secondary to hypoperfusion of the kidney from dissection, ATN -- FENa 07/07 1.2% consistent with ATN. Urine eos negative. -- Strict I/Os Randle removed and condom cath placed jenny tropicalis uti. --nephrology consult 07/08 appreciated. No indication for dialysis at this point -- UO remains adequate free water 300 q4h. holding scheduled Bumex d/c 04/15 NS today. sodium improved. FEN/GI: Colonic ileus Acute protein calorie malnutrition- mild Non-anion gap metabolic acidosis- resolved. Hyper-magnesium Hypernatremia History of peptic ulcer disease Hepatitis C -from IV drug use Elevated AST TF: Nepro at goal 40 cc an hour --nutrition consult. --phosLo d/c'd 07/31 for hypophosphatemia. Protonix for GI prophylaxis. Stephie-Colace twice a day for bowel regimen. MiraLAX twice a day KUB revealed 8 cm transverse colon ileus. Positive results with enema. CT abdomen/those revealed wall thickening or gallbladder. 2 right midpole no obstructing kidney stones, left circumflex continues on, to semi-bilateral pleural effusions and large amount stool left colon. s/p percutaneous cholecystostomy tube for gallbladder 07/15. Not a surgical candidate at this time. daily bmp, phos Heme/ID: Leukocytosis Acute Blood Loss Anemia Thrombocytopenia-resolved Daily CBC --thrombocytopenia is likely multifactorial from liver disease, consumptive from critical illness and dissection. Blood cultures/sputum/urine ordered 07/11 no growth to date Pancultured 07/29 for fevers - NGTD. urine culture 07/29 jenny tropicalis -- Fluconazole 100mg iv q24h x 14 day course. anticipated stop date 08/15 -- Procalcitonin 08/03 0.76 making him "moderate risk" of infectious etiology. would recommend trending this over the course of his treatment to ensure we are not missing secondary infection -- will continue to hold off on broad spectrum abx as patient is clinically improving. Endocrine: Hyperglycemia of critical illness -- SSI, medium scale, every 6 hours Prophylaxis: GI Prophylaxis po pepcid. DVT Prophylaxis -- SCDs/heparin . Lines: 07/13 -radial arterial line - out --07/04-07/11 right IJ cortis -- Left IJ CVL 07/11 - out -- condom cath. no randle. may require replacement of randle if he has significant urinary retention. Dr. Campos spoke at length with patient's brother Luis after the procedure and we established a plan to watch him closely while he's off all sedation and reassess his mental status. Overall impression: persistently somnolent. afebrile now. cultures remain negative. will need long-term placement. continue pulmonary rehab with daily SBTs and OOB to [facility]. Eriberto Ryder MD Aug 05, 2016 13:28
--- NOTE | 2016-08-05 13:53 | PD.VS.PN ---
Subjective POD #: [id number] Procedure(s): TEVAR, L LE fasciotomies for acute TBAD with visceral/renal/LLE malperfusion Subjective/Hospital Course mental status stable withdraws R>L but does withdraw L responded to my voice today by turning his head to me Objective Vitals/I&O Date Time Temp Pulse Resp B/P Pulse Ox O2 Delivery O2 Flow Rate FiO2 08/05/16 12:00 30 08/05/16 12:00 99.0 92 30 157/72 100 08/05/16 10:54 99 30 08/05/16 08:00 99.3 82 26 159/72 100 08/05/16 08:00 30 08/05/16 07:45 100 30 08/05/16 07:45 30 08/05/16 07:00 99 Mechanical Ventilator 30 08/05/16 06:00 92 08/05/16 04:36 100 30 08/05/16 04:00 94 08/05/16 04:00 30 08/05/16 04:00 99.1 94 25 117/68 100 08/05/16 02:00 92 08/05/16 00:15 100 30 08/05/16 00:00 90 08/05/16 00:00 99.0 90 24 128/62 100 08/05/16 00:00 30 08/04/16 22:00 94 08/04/16 20:21 99 30 08/04/16 20:00 94 08/04/16 20:00 30 08/04/16 20:00 99.6 93 27 144/65 98 08/04/16 19:00 99 Mechanical Ventilator 30 08/04/16 18:00 102 08/04/16 16:00 111 08/04/16 16:00 30 08/04/16 16:00 101.3 111 27 110/61 98 08/04/16 15:53 99 30 08/04/16 14:00 110 08/05/16 08/05/16 08/05/16 07:00 15:00 23:00 Intake Total 1031 ml 710 ml Output Total 550 ml 140.0 ml Balance 481 ml 570.0 ml Exam: abd nontender MENSAH, though R more than L Laboratory Laboratory Tests Test 08/05/16 03:41 White Blood Count 13.3 Red Blood Count 2.93 Hemoglobin 9.0 Hematocrit 27.4 Mean Corpuscular Volume 93.6 Mean Corpuscular Hemoglobin 30.7 Mean Corpuscular Hemoglobin 32.8 Concent Red Cell Distribution Width 14.9 Platelet Count 408 Mean Platelet Volume 8.6 Sodium Level 138 Potassium Level 3.6 Chloride Level 108 Carbon Dioxide Level 20.1 Anion Gap 10 Blood Urea Nitrogen 100 Creatinine 3.44 Estimat Glomerular Filtration 18 Rate Random Glucose 127 Calcium Level 8.3 Phosphorus Level 4.0 Ammonia 76 Date/Time Procedure Status Source Growth 08/01/16 15:14 Aerobic Blood Culture - Preliminary Resulted Blood Peripheral NO GROWTH IN 4 DAYS 08/01/16 15:14 Anaerobic Blood Culture - Preliminary Resulted Blood Peripheral NO GROWTH IN 4 DAYS 08/01/16 12:47 Gram Stain - Final Complete Sputum Endotracheal 08/01/16 12:47 Sputum Culture - Final Complete Sputum Endotracheal HEAVY GROWTH NORMAL RESPIRATORY KIM Assessment and Plan Assessment: (1) Dissecting aneurysm of thoracic aorta, Saran type B Status: Acute Plan Follow mental status and continue lactulose for elevated ammonia Renal improved - cr 3.4 T piece as he is able today ok to discuss long-term placement with brother as mental status may not clear for some time Hamlet Long MD FACS editorial writer [facility] Hamlet Long MD Aug 05, 2016 13:53
--- NOTE | 2016-08-05 15:26 | HHI.HCPN ---
Reason for visit a. To assist with evaluation and management of symptoms including: pain, dyspnea, debility. b. To assist medical decision maker(s) with: better understanding of current medical conditions; weighing benefits/burdens of medical treatment options; making medical treatment decisions. . Subjective/Interval History Patient seen and assessed in room 1304 s/p TEVAR and LLE fasciotomy. Patient was extubated on 07/24/16 - tracheostomy placed for airway protection on . Currently on T-piece trials. CPAP this morning. Patient is alert, eyes open and tracking. Left-sided weakness noted, moving right arm and right leg. Was able to squeeze my hand with right hand on command. Patient afebrile today , hypertensive with SBP in the 150s. Laboratory to include WBC 13.3, Hgb 9, platelet count 408. Sodium 138, potassium 3.6, BUN/creatinine 100/3.44. Ammonia 76. Sputum and blood culture 08/01/16 no growth. No new imaging. No family at bedside. Telephone conversation with patient's brother Luis. Medical update provided, review current plan of therapy. Provided information on laboratory data for today. Patient reports that the family's goal at this time is for patient to discharge to long-term facility once medically ready. . Family/friend interactions See interval note. . Advance Directives Living Will: Never completed Health Care Surrogate: Never completed Durable Power of Immigration Services Officer: Never completed Advance Directive Specifics Date completed: Advance directives never completed. . Health Care Surrogate(s): No written designation of health care surrogacy. . Documented care wishes: No written documentation of health care goals/preferences. . Significant change in goals: Goals of care remain unchanged. Full code. Continue aggressive care with goal of likely discharge to long-term facility. . Objective Vital Signs Date Time Temp Pulse Resp B/P Pulse Ox O2 Delivery O2 Flow Rate FiO2 08/05/16 14:10 95 T-piece 40 08/05/16 14:10 30 08/05/16 12:00 30 08/05/16 12:00 99.0 92 30 157/72 100 08/05/16 10:54 99 30 08/05/16 08:00 99.3 82 26 159/72 100 08/05/16 08:00 30 08/05/16 07:45 100 30 08/05/16 07:45 30 08/05/16 07:00 99 Mechanical Ventilator 30 08/05/16 06:00 92 08/05/16 04:36 100 30 08/05/16 04:00 94 08/05/16 04:00 30 08/05/16 04:00 99.1 94 25 117/68 100 08/05/16 02:00 92 08/05/16 00:15 100 30 08/05/16 00:00 90 08/05/16 00:00 99.0 90 24 128/62 100 08/05/16 00:00 30 08/04/16 22:00 94 08/04/16 20:21 99 30 08/04/16 20:00 94 08/04/16 20:00 30 08/04/16 20:00 99.6 93 27 144/65 98 08/04/16 19:00 99 Mechanical Ventilator 30 08/04/16 18:00 102 08/04/16 16:00 111 08/04/16 16:00 30 08/04/16 16:00 101.3 111 27 110/61 98 08/04/16 15:53 99 30 Intake & Output 08/05/16 08/05/16 07:00 19:00 Intake Total 1982 ml 710 ml Output Total 1080 ml 140.0 ml Balance 902 ml 570.0 ml IV Total 406 ml Tube Feeding 676 ml Other 900 ml 710 ml Output Urine Total 700 ml Stool Total 330 ml Gastric Drainage Total 70 ml Tube Feeding Residual Discard 70.0 ml Drainage Total 50 ml Physical Exam CONSTITUTIONAL/GENERAL: This is an adequately nourished patient s/p tracheostomy , [facility] TUBES/LINES/DRAINS: Tracheostomy, NG tube, rectal tube, Russell catheter, SCD, PIV 's. SKIN: Incisions on left lower extremity without S/S of infection Skin is warm to touch. Stitches in place. EYES: Pupils equal and round, and reactive. Tracking with eyes. ENT: Nose without bleeding or purulent drainage. NECK: Trachea midline. Tracheostomy in place. CARDIOVASCULAR: Regular rate and rhythm No murmur. No JVD RESPIRATORY/CHEST: S/p tracheostomy. No wheezes, rales or rhonchi GASTROINTESTINAL: Abdomen distended, firm. Cholecystostomy patent GENITOURINARY: Without palpable bladder distension. MUSCULOSKELETAL: No obvious deformities. Muscle wasting noted NEUROLOGICAL: Tracking with eyes, squeezed my hand with right hand on command. PSYCHIATRIC: Appears calm. . Diagnostic Tests Laboratory Laboratory Tests Test 08/03/16 08/04/16 08/05/16 04:09 04:16 03:41 White Blood Count 14.9 TH/MM3 13.4 TH/MM3 13.3 TH/MM3 (4.0-11.0) (4.0-11.0) (4.0-11.0) Red Blood Count 3.12 MIL/MM3 3.01 MIL/MM3 2.93 MIL/MM3 (4.50-5.90) (4.50-5.90) (4.50-5.90) Hemoglobin 9.5 GM/DL 9.2 GM/DL 9.0 GM/DL (13.0-17.0) (13.0-17.0) (13.0-17.0) Hematocrit 29.3 % 28.3 % 27.4 % (39.0-51.0) (39.0-51.0) (39.0-51.0) Mean Corpuscular Volume 94.0 FL 94.1 FL 93.6 FL (80.0-100.0) (80.0-100.0) (80.0-100.0) Mean Corpuscular Hemoglobin 30.4 PG 30.6 PG 30.7 PG (27.0-34.0) (27.0-34.0) (27.0-34.0) Mean Corpuscular Hemoglobin 32.3 % 32.6 % 32.8 % Concent (32.0-36.0) (32.0-36.0) (32.0-36.0) Red Cell Distribution Width 15.1 % 14.8 % 14.9 % (11.6-17.2) (11.6-17.2) (11.6-17.2) Platelet Count 435 TH/MM3 438 TH/MM3 408 TH/MM3 (150-450) (150-450) (150-450) Mean Platelet Volume 8.7 FL 8.8 FL 8.6 FL (7.0-11.0) (7.0-11.0) (7.0-11.0) Sodium Level 146 MEQ/L 141 MEQ/L 138 MEQ/L (136-145) (136-145) (136-145) Potassium Level 3.5 MEQ/L 3.2 MEQ/L 3.6 MEQ/L (3.5-5.1) (3.5-5.1) (3.5-5.1) Chloride Level 112 MEQ/L 110 MEQ/L 108 MEQ/L (98-107) (98-107) (98-107) Carbon Dioxide Level 24.8 MEQ/L 20.2 MEQ/L 20.1 MEQ/L (21.0-32.0) (21.0-32.0) (21.0-32.0) Anion Gap 9 MEQ/L (5-15) 11 MEQ/L (5-15) 10 MEQ/L (5-15) Blood Urea Nitrogen 117 MG/DL 103 MG/DL 100 MG/DL (7-18) (7-18) (7-18) Creatinine 4.21 MG/DL 3.64 MG/DL 3.44 MG/DL (0.60-1.30) (0.60-1.30) (0.60-1.30) Estimat Glomerular Filtration 14 ML/MIN (>89) 17 ML/MIN (>89) 18 ML/MIN (>89) Rate Random Glucose 134 MG/DL 128 MG/DL 127 MG/DL (74-106) (74-106) (74-106) Calcium Level 8.7 MG/DL 8.7 MG/DL 8.3 MG/DL (8.5-10.1) (8.5-10.1) (8.5-10.1) Phosphorus Level 4.0 MG/DL 3.8 MG/DL 4.0 MG/DL (2.5-4.9) (2.5-4.9) (2.5-4.9) Ammonia 52 MCMOL/L 96 MCMOL/L 76 MCMOL/L (11-32) (11-32) (11-32) Procalcitonin 0.76 ng/mL (0.00-0.50) Result Diagram: 08/05/16 0341 08/05/16 0341 Procedures 07/04/16: Right radial arterial line placement 07/04/16: Lumbar drain placement 07/04/16: Right IJ cortis placement 07/04/16: TEVAR and LLE fasciotomy. 07/06/16: Extubation 07/07/16: Reintubation 07/08/16: Platelet transfusion 07/08/16: Lumbar drain removed 07/11/16: Right IJ cortis removed 07/11/16: Left IJ CVL placement 07/24/16: Extubated 07/25/16: Tracheostomy and bronchoscopy . 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 (2) Respiratory failure (3) NSTEMI (non-ST elevated myocardial infarction) (4) Stroke Comment: MRI shows "small punctate infarcts involving the left cerebellar hemisphere and deep white matter bilaterally " in a background of amyloid angiopathy. . (5) Acute kidney insufficiency Comment: Probably a result of ischemic injury from dissection. . (6) Hepatitis C (7) Cholecystitis Comment: s/p cholecystostomy tube placement. . (8) COPD (chronic obstructive pulmonary disease) Symptom Scale: (1) Pain 0-10 Scale: Unable to quantify Comment: Possible causes of pain include postop surgical pain, circulation, edema, ETT, OG, invasive lines, immobility, bedbound status etc. (2) Dyspnea 0-10 Scale: Unable to quantify Comment: Currently tolerating trach collar. (3) Encephalopathy 0-10 Scale: Unable to quantify Pertinent Non-Medical Issues Psychosocial: Patient was born in [place] and moved to [place] as young adult. Patient has a long history of polysubstance abuse which includes EtOH consumption and crack cocaine. The patient continues to drink 8-12 beers daily. The patient has never been and has no children. His mother and 2 of his siblings live locally and a third brother lives in [place]. Patient's mother states patient has been diagnosed with oppositional defiant disorder and is a history of medical noncompliance. Prior to his hospitalization, the patient was living with an elderly gentleman and they were helping each other. 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 The patient received disability approximately 1 week prior to this hospitalization. Spiritual: Pentecostal nicolas Legal: Per [place] statutes, health care proxy decision making would fall to the patient's mother. Family members state while in the ED at [facility] patient identified his brother (Luis) as his medical decision maker, apparently the appropriate documentation and was not completed. Family members are in agreement and working together on patient's medical decisions. However the patient's mother and 2 other siblings (Olga and Jean Carlos) has opted out of decision making role, deferring to brother Luis. Ethical issues impacting care: No known ethical issues impacting care at this time . Important Contacts HCP: Brother (Luis); [phone] Mother: Nathalia Izquierdo, mother: [phone] [id number] (Chanda); [phone] Sister (Olga); [phone] Brother (Jean Carlos): [phone] . Prognosis Patient is a 60 year old man who was admitted with a type B aortic dissection. He is currently critically ill status post with TAVER and LLE fasciotomy. His past medical history is significant for polysubstance abuse (EtOH/crack cocaine) , HTN, CAD, COPD, hepatitis C/cirrhosis as well as medical noncompliance The patient currently remains orotracheally intubated and sedated. BUBBA - patient likely sustained severe ischemic injuries to both kidneys secondary to dissection involving renal arteries. It is certainly possible that this patient will be successfully extubated and upcoming days, eventually being stable enough to be discharged to SNF. However given the patient's past medical history, noncompliance, and this recent acute event, the patient has a strong probability into new decline and/or complications. . Code Status: Full Code Plan * CODE STATUS: FULL CODE * DECISION-MAKING CAPACITY: Patient lacks decision-making capacity at this time secondary to clinical condition, encephalopathy. Per [place] statutes, health care proxy decision making would fall to the patient's mother. However the patient's mother and 2 other siblings (Olga and Jean Carlos) has opted out of decision making role, therefore decision-making healthcare proxy is the patient' s brother Luis. He has accepted this role. * GOALS OF CARE: Continue aggressive care with goal of likely discharge to long- term facility. * SYMPTOMS: ==Pain: Likely secondary to postop surgical pain, immobility, bedbound status etc. patient showing no nonverbal signs or symptoms of pain. Oxycodone and hydromorphone available as needed. None given in the past 24 hours. == Debility, secondary to acute events, unclear at this time if patient would benefit from acute rehabilitation secondary to encephalopathy, elevated ammonia. ==Dyspnea: On CPAP, T-collar trials. * Case discussed with Dr. Ryder and bedside RN. * Palliative care will continue to follow-up as needed throughout this hospitalization for further clarifications of goals of treatment as the clinical course evolves. . Time Spent Total Floor Time (mins): 32 (Total care to include review and summarization of medical records, physical exam, telephone conversation with brother and case discussion with Dr. Ryder and bedside RN.) >50% Counseling/Coord of Care: Yes Attestation To help prompt me to consider important information that might be impacting today's encounter and assessment, information from prior notes written by myself or my colleagues may have been "brought forward" into today's note. My signature on this note, however, is an attestation that I personally performed the exam, history, and/or decision-making noted today, and, unless otherwise indicated, the interactions with patient, family, and staff as well as the review of records all occurred today. I also attest that the listed assessment and stated plan reflect my best clinical judgment today based on the combination of historical information, prior notes, and today's exam/ interactions. When time spent is documented, it refers only to time spent today by the signer, or if indicated, combined time spent today by collaborating physician/nurse practitioner. Tracy Gamble Aug 05, 2016 15:26
[2016-08-05] MEDS: oxyCODONE HCL ORAL CONC 20 MG/ML SYRINGE PO PRN (16:13)
[2016-08-05] MEDS: hydrALAZINE HCL 20 MG/ML VIAL IV PRN ×2 (16:16→21:18)
[2016-08-05] MEDS: SODIUM CHLOR 0.9% 1000 ML INJ 1,000 ML IV SCH (19:15)
[2016-08-05] MEDS: MELATONIN 5 MG TAB PO SCH (20:39)
[2016-08-05 23:49] LABS: HEMATOCRIT 27.3 % (39.0-51.0); MEAN CELL VOLUME 92.6 FL (80.0-100.0); MEAN CORPUSCULAR HEMOGLOBIN 31.4 PG (27.0-34.0); MEAN CORPUSCULAR HGB CONC 33.9 % (32.0-36.0); PLATELET COUNT 374 TH/MM3 (150-450); RED BLOOD COUNT 2.95 MIL/MM3 (4.50-5.90); REVIEW FLAG FINAL; WHITE BLOOD COUNT 12.1 TH/MM3 (4.0-11.0)
[2016-08-06] VITALS (14 sets, daily range): BP systolic 137–162; BP diastolic 66–73; PULSE 83–109; RESP 13–21; TEMP 98.2–99; O2SAT 95–100
[2016-08-06] MEDS: RIFAXIMIN 200 MG TAB PO SCH ×2 (00:23→08:32)
[2016-08-06] MEDS: LACTULOSE SYRUP 20 GM/30 ML CUP PO SCH ×4 (00:23→17:19)
[2016-08-06] MEDS: FREE WATER G-TUBE SCH ×5 (03:27→20:00)
[2016-08-06] MEDS: CHLORHEXIDINE GLUCONATE 2 % 1 PACK (2 CLOTHS) TOP SCH (03:28)
[2016-08-06 04:18] LABS: AUTOMATED NEUTROPHIL # 9.1 TH/MM3 (1.8-7.7); BASOPHIL # 0.2 TH/MM3 (0-0.2); BASOPHIL % 1.4 % (0.0-2.0); EOSINOPHIL # 0.5 TH/MM3 (0-0.4); HEMO FLAGS DIFF FINAL; LYMPH % 8.7 % (9.0-44.0); LYMPHOCYTE # 1.1 TH/MM3 (1.0-4.8); MEAN CELL VOLUME 94.3 FL (80.0-100.0); MEAN CORPUSCULAR HEMOGLOBIN 30.9 PG (27.0-34.0); MEAN CORPUSCULAR HGB CONC 32.8 % (32.0-36.0); MONO % 13.1 % (0.0-8.0); NEUT % 72.8 % (16.0-70.0); PLATELET COUNT 382 TH/MM3 (150-450); RED BLOOD COUNT 2.97 MIL/MM3 (4.50-5.90); RED CELL DISTRIBUTION WIDTH 14.8 % (11.6-17.2); WHITE BLOOD COUNT 12.4 TH/MM3 (4.0-11.0)
[2016-08-06 05:14] LABS: ALT (GPT) 35 U/L (12-78); ANION GAP 9 MEQ/L (5-15); AST (GOT) 63 U/L (15-37); BICARBONATE 19.9 MEQ/L (21.0-32.0); BLOOD UREA NITROGEN 95 MG/DL (7-18); CHLORIDE 109 MEQ/L (98-107); GLOMERULAR FILTRATION RATE 22 ML/MIN (>89); MAGNESIUM 3.1 MG/DL (1.5-2.5); SODIUM (NA) 138 MEQ/L (136-145)
[2016-08-06 05:16] LABS: ALKALINE PHOSPHATASE 110 U/L (45-117); TOTAL BILIRUBIN ADULT 1.1 MG/DL (0.2-1.0)
[2016-08-06] MEDS: INSULIN NovoLIN REGULAR SUPPLEMENTAL SCALE SQ SCH ×3 (05:21→17:31)
[2016-08-06] MEDS: ARTIFICIAL TEARS OPTH SOLN 15 ML BTL EACH EYE SCH ×3 (05:29→22:00)
[2016-08-06] MEDS: hydrALAZINE HCL 20 MG/ML VIAL IV PRN ×2 (06:12→15:31)
[2016-08-06] MEDS: oxyCODONE HCL ORAL CONC 20 MG/ML SYRINGE PO PRN (06:42)
[2016-08-06] MEDS: FLUCONAZOLE 100 MG PREMIX BAG 50 ML IV SCH (08:00)
[2016-08-06] MEDS: MULTIVITAMIN TAB PO SCH (08:30)
[2016-08-06] MEDS: CHLORHEXIDINE 0.12% (ORAL KIT) 15 ML CUP MT SCH ×2 (08:30→20:00)
[2016-08-06] MEDS: ASPIRIN 81 MG CHEW TAB CHEW SCH (08:31)
[2016-08-06] MEDS: DOXAZOSIN MESYLATE 2 MG TAB PO SCH (08:31)
[2016-08-06] MEDS: SODIUM CHLORIDE 0.9% FLUSH 10 ML FLUSH IVF SCH (08:31)
[2016-08-06] MEDS: THIAMINE HCL 100 MG TAB PO SCH (08:32)
[2016-08-06] MEDS: MODAFINIL 200 MG TAB PO SCH (08:32)
[2016-08-06] MEDS: DOCUSATE SODIUM 50 MG/SENNA 8.6 MG TAB PO SCH ×2 (08:32→21:26)
[2016-08-06] MEDS: POLYETHYLENE GLYCOL 17 GM PKG OG-TUBE SCH ×2 (08:32→21:26)
[2016-08-06] MEDS: FAMOTIDINE 40 MG/5 ML LIQ 50 ML BTL NG SCH ×2 (08:32→21:27)
[2016-08-06] MEDS: HEPARIN SODIUM - SQ 10,000 UNITS/ML VIAL SQ SCH ×3 (08:33→21:27)
[2016-08-06 08:58] LABS: APTT (PATIENT) 37.5 SEC (24.3-30.1); INTERNATIONAL NORMALIZED RATIO 1.1 RATIO
--- NOTE | 2016-08-06 13:24 | HHI.CCPN ---
Subjective Remarks/Hospital Course Hospital Course: This is a 60-year-old male who is transferred emergently from outside hospital with per report and acute type B dissection. Apparently the patient told his family member today that he had searing back pain and was taken to the emergency department. A CT of the chest at that time showed a type B dissection. The patient was intubated the outside facility and transferred to [place] for emergent evaluation management. Unfortunately, the patient is unable to provide any additional history at this time. I was at bedside and the patient arrived to the surgical intensive care unit. Dr. Long and I both evaluated the patient and when he arrived he was in a junctional bradycardia with heart rate in the 40s. He had obvious ST depressions in lead II on telemetry. Our initial concern was that we have extended the dissection into the type A dissection. We also did not have any CT of the abdomen and pelvis. On her physical exam, the patient had a cold left foot without pulses. I emergently placed a right radial arterial line, please see separate procedure note for details. We then went emergently to the CT scanner for repeat CT aortogram of the chest abdomen and pelvis to investigate the extent to which the dissection has extended. The CT aortogram demonstrated that this was still a type B dissection with the celiac artery being significantly compressed and possibly comprising flow from the dissection flap. The right kidney appears to be perfused off the false lumen and not the true lumen, and there is no contrast going down the left femoral artery. Patient was then brought back to the intensive care unit. His blood pressure is controlled on nicardipine infusion for goal systolic blood pressure less than 110. A 12-lead EKG at that time was done which demonstrated significant ST depressions in the inferior leads as well as the far lateral leads consistent with subendocardial ischemia. At the request of Dr. Long in anticipation of going emergently to the operative theater, I placed a lumbar drain for spinal protection, please see separate procedure note for details. At that point the patient was taken emergently to the operating room. Critical care medicine is been consulted to evaluate and manage the patient's type B dissection, hemodynamic's, acute hypoxic respiratory failure. 07/05: taken to OR for TEVAR overnight. lactate cleared overnight. uop adequate. Cr elevated to 1.8 this AM. He is on Coreg 50 mg by mouth 07/06: oliguric overnight. Cr rising. however, lactate cleared. other markers of end-organ perfusion better. likely ATN from time of dissection. awake following commands. moving bilateral lower extremities. clear CSF in lumbar drain. on intermittent norepinephrine to maintain spinal perfusion. 07/07: extubated yesterday, followed commands, good pulmonary mechanics. However , after extubation, became acutely delirious- probable combination of etoh withdraw and icu delirium, some pain. mental status waxed and waned throughout the day and ultimately reintubated overnight for worsening waning mental status and hypoxia. post-extubation it has been documented that he continues to move his bilateral lower extremities to painful stimuli and spontaneously. does not follow commands this morning. troponins downtrending. cardiology evaluated the patient yesterday, formal note pending, but per my conversation, plan was for ongoing conservative management as we are doing, and plan for nuc med stress test when stable. 07/08: still moving bilateral LEs spontaneously and w/d to pain. remains intubated with persistent agitation. hypoxia improving. platelets continue to fall, likely a combination of consumption, BUBBA, liver disease. will give unit of platelets prior to d/c lumbar drain. 07/09: Troponin spill resolving without evidence of ongoing injury. Major obstacle is agitation related to ETOH withdrawal followed by necessary sedation. Continue to work toward vent weaning. 07/10: Afebrile. Not following commands. Continues to be agitated for reasons above. Tolerating tube feeding at goal rate. Creatinine hopefully has plateaued. 07/11: CURRENT TEMPERATURE 100.2. MRI brain yesterday revealed left cellular restricted diffusion area likely acute infarct with small punctate areas within the coronal radiata possibly embolic event. Patient is arousable and will move all 4 extremities but not following commands. Left foot remains cool. Tolerating tube feeding. No bowel movement times 4 days. 07/12: Tmax 99.7. Currently 99. Noted right vertebral/distal left MCA/mid right SENIOR BUDGET ANALYST stenosis on imaging yesterday. Central line exchange from right to left side due to bleeding. No bowel movement for tolerating tube feedings with very low residuals. Still wean sedation. 07/13: Currently afebrile. Patient with soap side enema yesterday with's positive BM 3 overnight.. Go containment device currently in place. Currently hypertensive/when necessary labetalol and clonidine will be added. Noted liberalize SCI around 120 systolic blood pressure. Arousable on the ventilator and moves all 4 extremities spontaneously but not following commands. 07/14: Tmax 99.3. No significant bowel movement overnight. Currently hypotensive. Noted SCI around 120 systolic blood pressure recommended by vascular surgery. Arousable on ventilator on sedation vacation moves all 4 extremity spontaneously but not to commands. 07/15: Afebrile. -2775 cc stool past 24 hours. Currently hypertensive. Bradycardic. Requiring antihypertensives. Plan for percutaneous cholecystostomy tube today. 07/16: Remains afebrile. CXR clearing. Renal injury without change, spontaneous urine acceptable. 07/17: No material change. Tolerates CPAP. 07/18: Family is talking with palliative Care service. 07/19: Will try CPAP with decreasing pressure support. DNR status clouds issue for extubation. 07/20: Failed SBT yesterday, could not tolerate lower pressure support. 07/21: Tolerates 5/5 SBT for several hours. Unresponsive, no eye opening today. No improvement in motor function. Extensive discussion with his brother Luis yesterday. Family is pretty consolidated in their wish to withdraw artificial support. Hopefully we can discuss options with all principals Friday. 07/22: Nods head accurately to questions today. Moves 4 limbs to command, left is minimal. 07/23: Patient nods head yes to wanting re-intubation and trach if necessary. He nods "yes" to wanting us to do everything to help him live. 07/24: Still wants trial extubation and reintubation if necessary. 07/25: Extubated 24 hours ago. Sleepy and accumulating secretions in upper airway. He will require a protected airway. His interaction with me over the past three days have all indicated that he wants us to perform a tracheostomy if he fails the extubation trial. He confirms his desire to live and remain full code status. 07/26: Stronger, more alert on trach ventilation. Dobbhoff or PEG nursing home? 07/27: Renal function continues to improve. More alert, interactive. 07/28: Remains on mechanical ventilation via tracheostomy. Awake and alert. 07/29: Spiked temperature 101.3 last night. Tolerated T piece for 2 hours yesterday. 07/30: still somnolent. urine growing budding yeast. 07/31: more awake today. localizing. nonfocal. wbc elevated, low grade temps, but non-toxic appearing. 08/01: worsening encephalopathy today. still nonfocal, but either severe hypoactive delirium vs. structural problem. will obtain MRI. still with low- grade temps. Cr continues to worsen. 08/02: persistent encephalopathy. Ammonia elevated. Cr plateaued. cultures NGTD. CT scan with ?RLL pna, but no clinical signs of pneumonia, no increased secretions or o2 requirement. just started having BMs today with lactulose which was started yesterday. 08/03: neuro exam only slightly improved. wbc still elevated. afebrile. cultures NGTD. ammonia downtrending. Cr improving. Subjective: 08/04: persistent encephalopathy. but fever curve continues to trend down. ammonia elevated slightly again today. wbc very slowly downtrending. cultures remain NG. Cr improved. sodium improved. 08/05: Afebrile, WBC stable. Creat improved from 3.6 to 3.4 UO 975 ml in 24 hours. Follows commands in RLE to RN 08/06: Eyes open spontaneously, not following commands today. UO adequate. Ammonia level remains high at 82. Dr. Long d/w Family, they request ALT code with intubation only Objective Vital Signs Date Time Temp Pulse Resp B/P Pulse Ox O2 Delivery O2 Flow Rate FiO2 08/06/16 12:00 98.2 83 13 145/73 98 08/06/16 12:00 40 08/06/16 07:53 T-piece 08/06/16 07:00 6.00 Intake and Output 08/05/16 08/05/16 08/06/16 08:00 16:00 00:00 Intake Total 1031 ml 1540 ml 666 ml Output Total 550 ml 1010.0 ml 760 ml Balance 481 ml 530.0 ml -94 ml Result Diagram: 08/06/16 0355 08/06/16 0355 Other Results Microbiology Date/Time Procedure Status Source Growth 08/05/16 16:40 Stool Occult Blood (CODY) - Final Complete Stool Stool HEMOCCULT POSITIVE Imaging Last Impressions Chest X-Ray 07/15/16 0600 Signed Impressions: Service Date/Time: Friday, July 15, 2016 04:38 - CONCLUSION: Some worsening of the bilateral pulmonary infiltrates. Joe Appiah Jr., MD Abdomen X-Ray 07/15/16 0600 Signed Impressions: Service Date/Time: Friday, July 15, 2016 04:41 - CONCLUSION: No dilated bowel to suggest an obstruction. Joe Appiah Jr., MD Gall Bladder Ultrasound 07/14/16 0000 Signed Impressions: Service Date/Time: Thursday, July 14, 2016 11:36 - CONCLUSION: Abnormal gallbladder as described above. Cholecystitis would be consideration. The patient is only minimally tender around the gallbladder. Donis Hernandez MD FACR Abdomen/Pelvis CT 07/13/16 0000 Signed Impressions: Service Date/Time: Wednesday, July 13, 2016 17:29 - CONCLUSION: 1. Abnormal appearance of the gallbladder with wall thickening and possible pericholecystic fluid. No calcified stones. Recommend hepatobiliary tract scan to evaluate for acalculus cholecystitis. 2. Bilateral lower lung consolidation and bilateral pleural effusions. 3. Moderate amount of stool in the left colon. 4. Bilateral nonobstructing renal stones. Joe De Leon MD Neck Magnetic Resonance Angiography 07/11/16 0000 Signed Impressions: Service Date/Time: June 14:29 - CONCLUSION: 1. No evidence of carotid stenosis. 2. Short segment high-grade stenosis involving the mid right vertebral artery greater than 80 with a patent left vertebral artery Abhijeet Salinas MD Head Magnetic Resonance Angiography 07/11/16 0000 Signed Impressions: Service Date/Time: June 14:29 - CONCLUSION: 1. Evidence of atherosclerotic disease with focal distal left MCA branch stenosis and focal mid right SENIOR BUDGET ANALYST stenosis. 2. No proximal high grade stenosis or aneurysm. Bladimir Gasca MD Brain MRI 07/10/16 0000 Signed Impressions: Service Date/Time: Sunday, July 10, 2016 15:03 - CONCLUSION: 1. Small punctate infarcts involving the left cerebellar hemisphere and deep white matter bilaterally in this patient with a background of amyloid angiopathy. No acute hemorrhage is seen. Abhijeet Salinas MD Renal Ultrasound 07/08/16 0000 Signed Impressions: Service Date/Time: Friday, July 08, 2016 17:16 - CONCLUSION: 1. Resistive indices could not be obtained on the right side into the patient's body habitus and shadowing bowel gas. Left renal artery resistive indices are within normal limits. 2. No significant abdominal aortic aneurysm identified status post repair. 3. Probable 7 mm nonobstructing midpole right renal calculus. 4. Tiny left lower pole cyst measuring 1.5 cm. Hamlet Vinson MD Aorta CTA 07/04/16 0000 Signed Impressions: Service Date/Time: June 19:53 - CONCLUSION: 1. Extensive aortic dissection extending from the proximal transverse aorta just distal to the origin of the left subclavian artery. Dissection extends distally through both superficial femoral arteries. 2. Occlusion of the right renal artery with absent perfusion of the right kidney. Dissection of the left renal artery with absent perfusion of the anterior left kidney. 3. 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 4. Occlusion of left external iliac artery and right internal iliac artery. 5. ET tube in satisfactory position. Dependent consolidation in both lungs. Probable mild liver cirrhosis. No obstruction or free fluid. Randle catheter in decompressed bladder. See above discussion. Rodriguez Jeff MD Objective Remarks GENERAL: 60-year-old male, lying in bed, critically ill. HEENT: Normocephalic. Atraumatic. Pupils 3 mm, reactive, NECK: Tracheostomy in place CHEST: on TP, Clear to auscultation, no wheezes rales or rhonchi. CARDIOVASCULAR: RRR. No JVD. Pansystolic murmur heard at pex ABDOMEN: Non-distended, soft. No rigidity. MUSCULOSKELETAL: Distal pulses 2+. NEUROLOGICAL: somnolent, Withdraws both upper and LEs to noxious stimuli. Moving all extremities spontaneously. Not following commands Urinary Catheter: Yes Assessment to: Continue A/P Assessment and Plan Neuro/Psych: Left cerebellar lacunar infarct Right vertebral/distal left MCA and mid right SENIOR BUDGET ANALYST stenosis Agitated Delirium Alcohol Withdrawal - up to 15 beers daily Alcohol dependence History of polysubstance abuse including crack cocaine Lumbar drain placement - removed 07/08 Insomnia On melatonin 5 mg at night as needed for insomnia Daily thiamine 100 mg daily for EtOH use MRI brain 07/10 revealed left cerebellar cystic diffusion region with small punctate areas in the suarez radiata likely embolic. Possible amyloid. MRA head/neck revealed right vertebral 80% short segment stenosis, distal left MCA and mid right SENIOR BUDGET ANALYST stenosis EEG 07/10 revealed no seizure activity -- MRI 08/01 with new small infarct right splenium corpus callosum. -- ammonia level 130 --> 156 --> 52 --> 96 -->76-->82. continue Rifaximin and Lactulose. Delirium/Withdraw regimen: --Haldol 5mg iv q4h prn for breakthrough agitation. --Provigil 200mg po daily for alertness --Dilaudid 0.25mg iv q4h prn. --Oxycodone 5mg po q4h prn. -- Okayed with Dr. Long for aspirin 324 mg daily Respiratory: Acute hypoxic and hypercarbic respiratory failure --Daily C Pap/T piece trials --Bronchodilator therapy every 6 hours and albuterol every 2 hours when needed Head of bed 30 Wean FiO2 for goal SPO2 greater than 90% - s/p Trach 07/25. -- daily TP trials. Cardiovascular: Postop TEVAR with left lower ext fasciotomy secondary to type B aortic dissection with renal/visceral and left lower ext L perfusion Thoracic endovascular stent with left lower extremity fasciotomy/ compartments with [address] Long Acute type B dissection- secured Type II NSTEMI- Demand Ischemia- resolving Junction bradycardia- resolved. Lactic Acidosis- resolved. -- initial elevated troponins likely combination of demand ischemia and poor renal clearance -- Cardiology: Dr. Mondragon following. plan for conservative management with myocardial perfusion scan when stable. -- 2d echo: EF 55%, no RWMA. 2-D echo 07/08 repeat EF 60-65%. Mild MR. Rt atrium dilated. RENO 49 mmHg --As needed labetalol for systolic blood pressure greater than 160 Renal: Acute kidney injury- resolving. Acute Tubular Necrosis Right and left nephrolithiasis Likely secondary to hypoperfusion of the kidney from dissection, ATN -- FENa 07/07 1.2% consistent with ATN. Urine eos negative. -- Strict I/Os Randle removed and condom cath placed jenny tropicalis uti. -- nephrology consult 07/08 appreciated. No indication for dialysis at this point -- UO remains adequate free water 300 q4h. holding scheduled Bumex d/c 04/15 NS. sodium improved. FEN/GI: Colonic ileus Hyperammonemia Acute protein calorie malnutrition- mild Non-anion gap metabolic acidosis- resolved. Hyper-magnesium Hypernatremia History of peptic ulcer disease Hepatitis C -from IV drug use Elevated AST TF: Nepro at goal 40 cc an hour --nutrition consult. --phosLo d/c'd 07/31 for hypophosphatemia. Protonix for GI prophylaxis. Stephie-Colace twice a day for bowel regimen. MiraLAX twice a day KUB revealed 8 cm transverse colon ileus. Positive results with enema. CT abdomen/those revealed wall thickening or gallbladder. 2 right midpole no obstructing kidney stones, left circumflex continues on, to semi-bilateral pleural effusions and large amount stool left colon. s/p percutaneous cholecystostomy tube for gallbladder 07/15. Not a surgical candidate at this time. daily bmp, phos Continue lactulose and Xifaxan Heme/ID: Leukocytosis Acute Blood Loss Anemia Thrombocytopenia-resolved Daily CBC --thrombocytopenia is likely multifactorial from liver disease, consumptive from critical illness and dissection. Blood cultures/sputum/urine ordered 07/11 no growth to date Pancultured 07/29 for fevers - NGTD. urine culture 07/29 jenny tropicalis -- Fluconazole 100mg iv q24h x 14 day course. anticipated stop date 08/15 -- Procalcitonin 08/03 0.76 making him "moderate risk" of infectious etiology. would recommend trending this over the course of his treatment to ensure we are not missing secondary infection -- will continue to hold off on broad spectrum abx as patient is clinically improving. Endocrine: Hyperglycemia of critical illness -- SSI, medium scale, every 6 hours Prophylaxis: GI Prophylaxis po pepcid. DVT Prophylaxis -- SCDs/heparin . Lines: 07/13 -radial arterial line - out --07/04-07/11 right IJ cortis -- Left IJ CVL 07/11 - out -- condom cath. no randle. may require replacement of randle if he has significant urinary retention. Dr. Campos spoke at length with patient's brother Luis after the procedure and we established a plan to watch him closely while he's off all sedation and reassess his mental status. Overall impression: persistently somnolent. afebrile now. cultures remain negative. will need long-term placement. continue pulmonary rehab with daily SBTs and OOB to [facility]. Family in d/w Dr. Long want patient to be DNR. Orders written Eriberto Ryder MD Aug 06, 2016 13:23
--- NOTE | 2016-08-06 18:07 | PD.VS.PN ---
Subjective POD #: 33 Procedure(s): TEVAR, L LE fasciotomies for acute TBAD with visceral/renal/LLE malperfusion Subjective/Hospital Course mental status stable withdraws R>L but does withdraw L Off vent and in fact on T piece consistently Objective Vitals/I&O Date Time Temp Pulse Resp B/P Pulse Ox O2 Delivery O2 Flow Rate FiO2 08/06/16 16:00 98.5 97 13 162/71 97 08/06/16 16:00 40 08/06/16 16:00 97 08/06/16 14:00 85 08/06/16 12:00 98.2 83 13 145/73 98 08/06/16 12:00 40 08/06/16 12:00 83 08/06/16 10:00 84 08/06/16 08:00 98.6 91 18 137/67 100 08/06/16 08:00 40 08/06/16 08:00 91 08/06/16 07:53 100 T-piece 28 08/06/16 07:00 100 T-Piece 6.00 40 08/06/16 06:00 95 08/06/16 04:00 91 08/06/16 04:00 40 08/06/16 04:00 98.9 94 19 150/69 100 08/06/16 02:00 93 08/06/16 00:00 99.0 102 21 154/67 100 08/06/16 00:00 99 08/06/16 00:00 40 08/05/16 22:00 100 08/05/16 20:00 98.9 90 17 146/67 100 08/05/16 20:00 40 08/05/16 20:00 99 08/05/16 19:48 100 T-piece 6.00 40 08/05/16 19:00 100 T-Piece 6.00 40 08/06/16 08/06/16 08/06/16 07:00 15:00 23:00 Intake Total 1015 ml 883 ml Output Total 635.0 ml 675 ml 300.0 ml Balance 380.0 ml 208 ml -300.0 ml Exam: abdomen sl distended but doesn't appear tender TF held at present bc of high gastric residuals Laboratory Laboratory Tests Test 08/05/16 08/06/16 08/06/16 23:43 03:55 09:33 White Blood Count 12.1 12.4 Red Blood Count 2.95 2.97 Hemoglobin 9.3 9.2 Hematocrit 27.3 28.0 Mean Corpuscular Volume 92.6 94.3 Mean Corpuscular Hemoglobin 31.4 30.9 Mean Corpuscular Hemoglobin 33.9 32.8 Concent Red Cell Distribution Width 15.0 14.8 Platelet Count 374 382 Mean Platelet Volume 8.5 8.7 Neutrophils (%) (Auto) 72.8 Lymphocytes (%) (Auto) 8.7 Monocytes (%) (Auto) 13.1 Eosinophils (%) (Auto) 4.0 Basophils (%) (Auto) 1.4 Neutrophils # (Auto) 9.1 Lymphocytes # (Auto) 1.1 Monocytes # (Auto) 1.6 Eosinophils # (Auto) 0.5 Basophils # (Auto) 0.2 CBC Comment DIFF FINAL Differential Comment Sodium Level 138 Potassium Level 4.0 Chloride Level 109 Carbon Dioxide Level 19.9 Anion Gap 9 Blood Urea Nitrogen 95 Creatinine 2.98 Estimat Glomerular Filtration 22 Rate Random Glucose 112 Calcium Level 8.4 Phosphorus Level 4.6 Magnesium Level 3.1 Total Bilirubin 1.1 Aspartate Amino Transf 63 (AST/SGOT) Alanine Aminotransferase 35 (ALT/SGPT) Alkaline Phosphatase 110 Ammonia 82 Total Protein 8.1 Albumin 2.0 Prothrombin Time 12.0 Prothromb Time International 1.1 Ratio Activated Partial 37.5 Thromboplast Time Date/Time Procedure Status Source Growth 08/05/16 16:40 Stool Occult Blood (CODY) - Final Complete Stool Stool HEMOCCULT POSITIVE Assessment and Plan Assessment: (1) Dissecting aneurysm of thoracic aorta, [place]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 I tried to call him again tonight without answer. Hamlet Long MD FACS balloon dipper [facility] - Heart and Vascular Surgery at [facility] Hamlet Long MD Aug 06, 2016 18:07
[2016-08-06] MEDS: SODIUM CHLOR 0.9% 1000 ML INJ 1,000 ML IV SCH (18:38)
[2016-08-06] MEDS: MELATONIN 5 MG TAB PO SCH (21:27)
[2016-08-07] VITALS (14 sets, daily range): BP systolic 145–158; BP diastolic 67–81; PULSE 80–108; RESP 10–22; TEMP 97.5–99; O2SAT 96–99
[2016-08-07] MEDS: hydrALAZINE HCL 20 MG/ML VIAL IV PRN ×2 (02:33→20:14)
[2016-08-07] MEDS: oxyCODONE HCL ORAL CONC 20 MG/ML SYRINGE PO PRN ×2 (02:35→20:14)
[2016-08-07] MEDS: FREE WATER G-TUBE SCH ×6 (03:29→20:00)
[2016-08-07] MEDS: CHLORHEXIDINE GLUCONATE 2 % 1 PACK (2 CLOTHS) TOP SCH (03:30)
--- NOTE | 2016-08-07 04:21 | RADRPT ---
EXAM DATE/TIME: 08/07/2016 03:44 [place] COMPARISON: CHEST SINGLE AP, July 30, 2016, 5:22. INDICATIONS : Short of breath. MEDICAL HISTORY : Hepatitis C. Cardiovascular disease. Hypertension. SURGICAL HISTORY : Abdominal aortic aneurysm repair. ENCOUNTER: Subsequent ACUITY: 2 weeks PAIN SCORE: Non-responsive. LOCATION: Bilateral chest FINDINGS: The support devices remain in place. There has been some improvement with the mild right lower lung i nfiltrate. Otherwise, the lungs are grossly clear. No other new infiltrates are seen. The heart size is stable. No significant pleural effusions. CONCLUSION: Improving mild right lower lung infiltrate. Viraj Johnson MD on August 07, 2016 at 4:19 Board Certified Radiologist. This report was verified electronically.
[2016-08-07] MEDS: ARTIFICIAL TEARS OPTH SOLN 15 ML BTL EACH EYE SCH ×3 (04:54→22:00)
[2016-08-07] MEDS: LACTULOSE SYRUP 20 GM/30 ML CUP PO SCH ×4 (04:54→18:24)
[2016-08-07] MEDS: INSULIN NovoLIN REGULAR SUPPLEMENTAL SCALE SQ SCH ×4 (06:00→18:00)
[2016-08-07] MEDS: FAMOTIDINE 40 MG/5 ML LIQ 50 ML BTL NG SCH ×2 (08:33→20:15)
[2016-08-07] MEDS: DOCUSATE SODIUM 50 MG/SENNA 8.6 MG TAB PO SCH ×2 (08:33→20:15)
[2016-08-07] MEDS: POLYETHYLENE GLYCOL 17 GM PKG OG-TUBE SCH ×2 (08:33→20:15)
[2016-08-07] MEDS: THIAMINE HCL 100 MG TAB PO SCH (08:34)
[2016-08-07] MEDS: ASPIRIN 81 MG CHEW TAB CHEW SCH (08:34)
[2016-08-07] MEDS: DOXAZOSIN MESYLATE 2 MG TAB PO SCH (08:34)
[2016-08-07] MEDS: MODAFINIL 200 MG TAB PO SCH (08:34)
[2016-08-07] MEDS: MULTIVITAMIN TAB PO SCH (08:34)
[2016-08-07] MEDS: HEPARIN SODIUM - SQ 10,000 UNITS/ML VIAL SQ SCH ×2 (08:36→20:15)
[2016-08-07] MEDS: CHLORHEXIDINE 0.12% (ORAL KIT) 15 ML CUP MT SCH ×2 (08:36→20:14)
[2016-08-07] MEDS: SODIUM CHLORIDE 0.9% FLUSH 10 ML FLUSH IVF SCH (08:36)
[2016-08-07] MEDS: FLUCONAZOLE 100 MG PREMIX BAG 50 ML IV SCH (08:42)
--- NOTE | 2016-08-07 11:54 | PD.VS.PN ---
Subjective POD #: 34 Procedure(s): TEVAR, L LE fasciotomies for acute TBAD with visceral/renal/LLE malperfusion Subjective/Hospital Course mental status stable withdraws R>L but does withdraw L Off vent. Abdominal mild distension so TF decreased Objective Vitals/I&O Date Time Temp Pulse Resp B/P Pulse Ox O2 Delivery O2 Flow Rate FiO2 08/07/16 08:00 86 08/07/16 08:00 40 08/07/16 07:37 98 T-piece 5.00 28 08/07/16 07:00 97 T-Piece 6.00 40 08/07/16 06:00 80 08/07/16 04:00 99.0 82 19 146/67 98 08/07/16 04:00 40 08/07/16 04:00 80 08/07/16 03:35 19 08/07/16 02:00 84 08/07/16 00:00 40 08/07/16 00:00 101 08/07/16 00:00 98.9 96 22 157/74 98 08/06/16 22:00 101 08/06/16 20:00 98.9 103 21 149/66 98 08/06/16 20:00 103 08/06/16 20:00 100 T-Piece 6.00 40 08/06/16 20:00 40 08/06/16 19:19 95 T-piece 6.00 28 08/06/16 18:00 109 08/06/16 16:00 98.5 97 13 162/71 97 08/06/16 16:00 40 08/06/16 16:00 97 08/06/16 14:00 85 08/06/16 12:00 98.2 83 13 145/73 98 08/06/16 12:00 40 08/06/16 12:00 83 08/07/16 08/07/16 08/07/16 07:00 15:00 23:00 Intake Total 826 ml Output Total 670 ml Balance 156 ml Exam: abdomen slightly distended but not tympanetic, no tenderness MENSAH Laboratory Date/Time Procedure Status Source Growth 08/05/16 16:40 Stool Occult Blood (CODY) - Final Complete Stool Stool HEMOCCULT POSITIVE Assessment and Plan Assessment: (1) Dissecting aneurysm of thoracic aorta, [place]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
--- NOTE | 2016-08-07 12:01 | HHI.CCPN ---
Subjective Remarks/Hospital Course Hospital Course: This is a 60-year-old male who is transferred emergently from outside hospital with per report and acute type B dissection. Apparently the patient told his family member today that he had searing back pain and was taken to the emergency department. A CT of the chest at that time showed a type B dissection. The patient was intubated the outside facility and transferred to [facility] for emergent evaluation management. Unfortunately, the patient is unable to provide any additional history at this time. I was at bedside and the patient arrived to the surgical intensive care unit. Dr. Long and I both evaluated the patient and when he arrived he was in a junctional bradycardia with heart rate in the 40s. He had obvious ST depressions in lead II on telemetry. Our initial concern was that we have extended the dissection into the type A dissection. We also did not have any CT of the abdomen and pelvis. On her physical exam, the patient had a cold left foot without pulses. I emergently placed a right radial arterial line, please see separate procedure note for details. We then went emergently to the CT scanner for repeat CT aortogram of the chest abdomen and pelvis to investigate the extent to which the dissection has extended. The CT aortogram demonstrated that this was still a type B dissection with the celiac artery being significantly compressed and possibly comprising flow from the dissection flap. The right kidney appears to be perfused off the false lumen and not the true lumen, and there is no contrast going down the left femoral artery. Patient was then brought back to the intensive care unit. His blood pressure is controlled on nicardipine infusion for goal systolic blood pressure less than 110. A 12-lead EKG at that time was done which demonstrated significant ST depressions in the inferior leads as well as the far lateral leads consistent with subendocardial ischemia. At the request of Dr. Long in anticipation of going emergently to the operative theater, I placed a lumbar drain for spinal protection, please see separate procedure note for details. At that point the patient was taken emergently to the operating room. Critical care medicine is been consulted to evaluate and manage the patient's type B dissection, hemodynamic's, acute hypoxic respiratory failure. 07/05: taken to OR for TEVAR overnight. lactate cleared overnight. uop adequate. Cr elevated to 1.8 this AM. He is on Coreg 50 mg by mouth 07/06: oliguric overnight. Cr rising. however, lactate cleared. other markers of end-organ perfusion better. likely ATN from time of dissection. awake following commands. moving bilateral lower extremities. clear CSF in lumbar drain. on intermittent norepinephrine to maintain spinal perfusion. 07/07: extubated yesterday, followed commands, good pulmonary mechanics. However , after extubation, became acutely delirious- probable combination of etoh withdraw and icu delirium, some pain. mental status waxed and waned throughout the day and ultimately reintubated overnight for worsening waning mental status and hypoxia. post-extubation it has been documented that he continues to move his bilateral lower extremities to painful stimuli and spontaneously. does not follow commands this morning. troponins downtrending. cardiology evaluated the patient yesterday, formal note pending, but per my conversation, plan was for ongoing conservative management as we are doing, and plan for nuc med stress test when stable. 07/08: still moving bilateral LEs spontaneously and w/d to pain. remains intubated with persistent agitation. hypoxia improving. platelets continue to fall, likely a combination of consumption, BUBBA, liver disease. will give unit of platelets prior to d/c lumbar drain. 07/09: Troponin spill resolving without evidence of ongoing injury. Major obstacle is agitation related to ETOH withdrawal followed by necessary sedation. Continue to work toward vent weaning. 07/10: Afebrile. Not following commands. Continues to be agitated for reasons above. Tolerating tube feeding at goal rate. Creatinine hopefully has plateaued. 07/11: CURRENT TEMPERATURE 100.2. MRI brain yesterday revealed left cellular restricted diffusion area likely acute infarct with small punctate areas within the coronal radiata possibly embolic event. Patient is arousable and will move all 4 extremities but not following commands. Left foot remains cool. Tolerating tube feeding. No bowel movement times 4 days. 07/12: Tmax 99.7. Currently 99. Noted right vertebral/distal left MCA/mid right [employer]IST stenosis on imaging yesterday. Central line exchange from right to left side due to bleeding. No bowel movement for tolerating tube feedings with very low residuals. Still wean sedation. 07/13: Currently afebrile. Patient with soap side enema yesterday with's positive BM 3 overnight.. Go containment device currently in place. Currently hypertensive/when necessary labetalol and clonidine will be added. Noted liberalize SCI around 120 systolic blood pressure. Arousable on the ventilator and moves all 4 extremities spontaneously but not following commands. 07/14: Tmax 99.3. No significant bowel movement overnight. Currently hypotensive. Noted SCI around 120 systolic blood pressure recommended by vascular surgery. Arousable on ventilator on sedation vacation moves all 4 extremity spontaneously but not to commands. 07/15: Afebrile. -2775 cc stool past 24 hours. Currently hypertensive. Bradycardic. Requiring antihypertensives. Plan for percutaneous cholecystostomy tube today. 07/16: Remains afebrile. CXR clearing. Renal injury without change, spontaneous urine acceptable. 07/17: No material change. Tolerates CPAP. 07/18: Family is talking with palliative Care service. 07/19: Will try CPAP with decreasing pressure support. DNR status clouds issue for extubation. 07/20: Failed SBT yesterday, could not tolerate lower pressure support. 07/21: Tolerates 5/5 SBT for several hours. Unresponsive, no eye opening today. No improvement in motor function. Extensive discussion with his brother Luis yesterday. Family is pretty consolidated in their wish to withdraw artificial support. Hopefully we can discuss options with all principals Friday. 07/22: Nods head accurately to questions today. Moves 4 limbs to command, left is minimal. 07/23: Patient nods head yes to wanting re-intubation and trach if necessary. He nods "yes" to wanting us to do everything to help him live. 07/24: Still wants trial extubation and reintubation if necessary. 07/25: Extubated 24 hours ago. Sleepy and accumulating secretions in upper airway. He will require a protected airway. His interaction with me over the past three days have all indicated that he wants us to perform a tracheostomy if he fails the extubation trial. He confirms his desire to live and remain full code status. 07/26: Stronger, more alert on trach ventilation. Dobbhoff or PEG retirement? 07/27: Renal function continues to improve. More alert, interactive. 07/28: Remains on mechanical ventilation via tracheostomy. Awake and alert. 07/29: Spiked temperature 101.3 last night. Tolerated T piece for 2 hours yesterday. 07/30: still somnolent. urine growing budding yeast. 07/31: more awake today. localizing. nonfocal. wbc elevated, low grade temps, but non-toxic appearing. 08/01: worsening encephalopathy today. still nonfocal, but either severe hypoactive delirium vs. structural problem. will obtain MRI. still with low- grade temps. Cr continues to worsen. 08/02: persistent encephalopathy. Ammonia elevated. Cr plateaued. cultures NGTD. CT scan with ?RLL pna, but no clinical signs of pneumonia, no increased secretions or o2 requirement. just started having BMs today with lactulose which was started yesterday. 08/03: neuro exam only slightly improved. wbc still elevated. afebrile. cultures NGTD. ammonia downtrending. Cr improving. Subjective: 08/04: persistent encephalopathy. but fever curve continues to trend down. ammonia elevated slightly again today. wbc very slowly downtrending. cultures remain NG. Cr improved. sodium improved. 08/05: Afebrile, WBC stable. Creat improved from 3.6 to 3.4 UO 975 ml in 24 hours. Follows commands in RLE to RN 08/06: Eyes open spontaneously, not following commands today. UO adequate. Ammonia level remains high at 82. Dr. Long d/w Family, they request ALT code with intubation only 08/07: More awake today, still not following commands. High tube feed residuals. BUN creat improving 100/3.4 -->95/3.0. UO adequate Objective Vital Signs Date Time Temp Pulse Resp B/P Pulse Ox O2 Delivery O2 Flow Rate FiO2 08/07/16 08:00 86 08/07/16 08:00 40 08/07/16 07:37 98 T-piece 5.00 08/07/16 04:00 99.0 19 146/67 Intake and Output 08/06/16 08/06/16 08/07/16 08:00 16:00 00:00 Intake Total 1015 ml 883 ml 420 ml Output Total 635.0 ml 975.0 ml 550 ml Balance 380.0 ml -92.0 ml -130 ml Result Diagram: 08/06/16 0355 08/06/16 0355 Other Results Microbiology Date/Time Procedure Status Source Growth 08/05/16 16:40 Stool Occult Blood (CODY) - Final Complete Stool Stool HEMOCCULT POSITIVE Imaging Last Impressions Chest X-Ray 07/15/16 0600 Signed Impressions: Service Date/Time: Friday, July 15, 2016 04:38 - CONCLUSION: Some worsening of the bilateral pulmonary infiltrates. Joe Appiah Jr., MD Abdomen X-Ray 07/15/16 0600 Signed Impressions: Service Date/Time: Friday, July 15, 2016 04:41 - CONCLUSION: No dilated bowel to suggest an obstruction. Joe Appiah Jr., MD Gall Bladder Ultrasound 07/14/16 0000 Signed Impressions: Service Date/Time: Thursday, July 14, 2016 11:36 - CONCLUSION: Abnormal gallbladder as described above. Cholecystitis would be consideration. The patient is only minimally tender around the gallbladder. Donis Hernandez MD FACR Abdomen/Pelvis CT 07/13/16 0000 Signed Impressions: Service Date/Time: Wednesday, July 13, 2016 17:29 - CONCLUSION: 1. Abnormal appearance of the gallbladder with wall thickening and possible pericholecystic fluid. No calcified stones. Recommend hepatobiliary tract scan to evaluate for acalculus cholecystitis. 2. Bilateral lower lung consolidation and bilateral pleural effusions. 3. Moderate amount of stool in the left colon. 4. Bilateral nonobstructing renal stones. Joe De Leon MD Neck Magnetic Resonance Angiography 07/11/16 0000 Signed Impressions: Service Date/Time: June 14:29 - CONCLUSION: 1. No evidence of carotid stenosis. 2. Short segment high-grade stenosis involving the mid right vertebral artery greater than 80 with a patent left vertebral artery Abhijeet Salinas MD Head Magnetic Resonance Angiography 07/11/16 0000 Signed Impressions: Service Date/Time: June 14:29 - CONCLUSION: 1. Evidence of atherosclerotic disease with focal distal left MCA branch stenosis and focal mid right [employer]IST stenosis. 2. No proximal high grade stenosis or aneurysm. Bladimir Gasca MD Brain MRI 07/10/16 0000 Signed Impressions: Service Date/Time: Sunday, July 10, 2016 15:03 - CONCLUSION: 1. Small punctate infarcts involving the left cerebellar hemisphere and deep white matter bilaterally in this patient with a background of amyloid angiopathy. No acute hemorrhage is seen. Abhijeet Salinas MD Renal Ultrasound 07/08/16 0000 Signed Impressions: Service Date/Time: Friday, July 08, 2016 17:16 - CONCLUSION: 1. Resistive indices could not be obtained on the right side into the patient's body habitus and shadowing bowel gas. Left renal artery resistive indices are within normal limits. 2. No significant abdominal aortic aneurysm identified status post repair. 3. Probable 7 mm nonobstructing midpole right renal calculus. 4. Tiny left lower pole cyst measuring 1.5 cm. Hamlet Vinson MD Aorta CTA 07/04/16 0000 Signed Impressions: Service Date/Time: June 19:53 - CONCLUSION: 1. Extensive aortic dissection extending from the proximal transverse aorta just distal to the origin of the left subclavian artery. Dissection extends distally through both superficial femoral arteries. 2. Occlusion of the right renal artery with absent perfusion of the right kidney. Dissection of the left renal artery with absent perfusion of the anterior left kidney. 3. 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 4. Occlusion of left external iliac artery and right internal iliac artery. 5. ET tube in satisfactory position. Dependent consolidation in both lungs. Probable mild liver cirrhosis. No obstruction or free fluid. Randle catheter in decompressed bladder. See above discussion. Rodriguez Jeff MD Objective Remarks GENERAL: 60-year-old male, lying in bed, critically ill. HEENT: Normocephalic. Atraumatic. Pupils 3 mm, reactive, NECK: Tracheostomy in place CHEST: on TP, Clear to auscultation, no wheezes rales or rhonchi. CARDIOVASCULAR: RRR. No JVD. Pansystolic murmur heard at apex ABDOMEN: Non-distended, soft. No rigidity. MUSCULOSKELETAL: Distal pulses 2+. NEUROLOGICAL: Somnolent, Withdraws both upper and LEs to noxious stimuli. Moving all extremities spontaneously. 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 Possible amyloid. MRA head/neck revealed right vertebral 80% short segment stenosis, distal left MCA and mid right [employer]IST stenosis EEG 07/10 revealed no seizure activity -- MRI 08/01 with new small infarct right splenium corpus callosum. -- ammonia level 130 --> 156 --> 52 --> 96 -->76-->82. continue Rifaximin and Lactulose. repeat Ammonia level now Delirium/Withdraw regimen: --Haldol 5mg iv q4h prn for breakthrough agitation. --Provigil 200mg po daily for alertness --Dilaudid 0.25mg iv q4h prn. --Oxycodone 5mg po q4h prn. --Okayed with Dr. Long for aspirin 324 mg daily Respiratory: Acute hypoxic and hypercarbic respiratory failure --Daily C Pap/T piece trials-Leave on TP 04/11 as tolerated --Bronchodilator therapy every 6 hours and albuterol every 2 hours when needed Head of bed 30 Wean FiO2 for goal SPO2 greater than 90% - s/p Trach 07/25. Cardiovascular: Postop TEVAR with left lower ext fasciotomy secondary to type B aortic dissection with renal/visceral and left lower ext L perfusion Thoracic endovascular stent with left lower extremity fasciotomy/ compartments with [address] Long Acute type B dissection- secured Type II NSTEMI- Demand Ischemia- resolving Junction bradycardia- resolved. Lactic Acidosis- resolved. -- initial elevated troponins likely combination of demand ischemia and poor renal clearance -- Cardiology: Dr. Mondragon following. plan for conservative management with myocardial perfusion scan when stable. -- 2d echo: EF 55%, no RWMA. 2-D echo 07/08 repeat EF 60-65%. Mild MR. Rt atrium dilated. RENO 49 mmHg --As needed labetalol for systolic blood pressure greater than 160 Renal: Acute kidney injury- resolving. Acute Tubular Necrosis Right and left nephrolithiasis Likely secondary to hypoperfusion of the kidney from dissection, ATN -- FENa 07/07 1.2% consistent with ATN. Urine eos negative. -- Strict I/Os Randle removed and condom cath placed jenny tropicalis uti. -- nephrology consult 07/08 appreciated. No indication for dialysis at this point -- UO remains adequate free water 300 q4h. holding scheduled Bumex d/c 04/15 NS. sodium improved. FEN/GI: Colonic ileus Hyperammonemia Acute protein calorie malnutrition- mild Non-anion gap metabolic acidosis- resolved. Hyper-magnesium Hypernatremia History of peptic ulcer disease Hepatitis C -from IV drug use Elevated AST TF: Nepro at goal 40 cc an hour --nutrition consult. --phosLo d/c'd 07/31 for hypophosphatemia. Protonix for GI prophylaxis. Stephie-Colace twice a day for bowel regimen. MiraLAX twice a day KUB revealed 8 cm transverse colon ileus. Positive results with enema. CT abdomen/those revealed wall thickening or gallbladder. 2 right midpole no obstructing kidney stones, left circumflex continues on, to semi-bilateral pleural effusions and large amount stool left colon. s/p percutaneous cholecystostomy tube for gallbladder 07/15. Not a surgical candidate at this time. daily bmp, phos Continue lactulose and Xifaxan Heme/ID: Leukocytosis Acute Blood Loss Anemia Thrombocytopenia-resolved Daily CBC --thrombocytopenia is likely multifactorial from liver disease, consumptive from critical illness and dissection. Blood cultures/sputum/urine ordered 07/11 no growth to date Pancultured 07/29 for fevers - NGTD. urine culture 07/29 jenny tropicalis -- Fluconazole 100mg iv q24h x 14 day course. anticipated stop date 08/15 -- Procalcitonin 08/03 0.76 making him "moderate risk" of infectious etiology. would recommend trending this over the course of his treatment to ensure we are not missing secondary infection -- will continue to hold off on broad spectrum abx as patient is clinically improving. Endocrine: Hyperglycemia of critical illness -- SSI, medium scale, every 6 hours Prophylaxis: GI Prophylaxis po pepcid. DVT Prophylaxis -- SCDs/heparin . Lines: 07/13 -radial arterial line - out --07/04-07/11 right IJ cortis -- Left IJ CVL 07/11 - out -- condom cath. no randle. may require replacement of randle if he has significant urinary retention. Dr. Campos spoke at length with patient's brother Luis after the procedure and we established a plan to watch him closely while he's off all sedation and reassess his mental status. Overall impression: persistently somnolent. afebrile now. cultures remain negative. will need long-term placement. continue pulmonary rehab with daily SBTs and OOB to stretcher chair. Code status DNR Eriberto Ryder MD Aug 07, 2016 12:01
[2016-08-07] MEDS: METOCLOPRAMIDE HCL 10 MG/2 ML VIAL IV PUSH SCH ×2 (14:07→22:12)
[2016-08-07] MEDS: SODIUM CHLOR 0.9% 1000 ML INJ 1,000 ML IV SCH (18:24)
[2016-08-07] MEDS: MELATONIN 5 MG TAB PO SCH (20:15)
[2016-08-08] VITALS (13 sets, daily range): BP systolic 125–163; BP diastolic 64–89; PULSE 87–119; RESP 10–28; TEMP 98.6–98.7; O2SAT 97–99
[2016-08-08] MEDS: hydrALAZINE HCL 20 MG/ML VIAL IV PRN (03:14)
[2016-08-08] MEDS: oxyCODONE HCL ORAL CONC 20 MG/ML SYRINGE PO PRN ×2 (03:17→17:40)
[2016-08-08] MEDS: CHLORHEXIDINE GLUCONATE 2 % 1 PACK (2 CLOTHS) TOP SCH (04:00)
[2016-08-08] MEDS: FREE WATER G-TUBE SCH ×3 (04:00→07:36)
[2016-08-08 04:35] LABS: AUTOMATED NEUTROPHIL # 5.9 TH/MM3 (1.8-7.7); BASOPHIL # 0.2 TH/MM3 (0-0.2); BASOPHIL % 1.8 % (0.0-2.0); EOSINOPHIL # 0.6 TH/MM3 (0-0.4); EOSINOPHIL % 6.6 % (0.0-4.0); HEMATOCRIT 26.8 % (39.0-51.0); HEMO FLAGS DIFF FINAL; LYMPH % 12.5 % (9.0-44.0); LYMPHOCYTE # 1.1 TH/MM3 (1.0-4.8); MEAN CELL VOLUME 93.4 FL (80.0-100.0); MEAN CORPUSCULAR HEMOGLOBIN 32.1 PG (27.0-34.0); MEAN CORPUSCULAR HGB CONC 34.4 % (32.0-36.0); MONO % 14.2 % (0.0-8.0); NEUT % 64.9 % (16.0-70.0); PLATELET COUNT 422 TH/MM3 (150-450); RED BLOOD COUNT 2.87 MIL/MM3 (4.50-5.90); RED CELL DISTRIBUTION WIDTH 15.5 % (11.6-17.2); WHITE BLOOD COUNT 9.2 TH/MM3 (4.0-11.0)
[2016-08-08 05:02] LABS: ALKALINE PHOSPHATASE 95 U/L (45-117); ALT (GPT) 35 U/L (12-78); ANION GAP 10 MEQ/L (5-15); AST (GOT) 53 U/L (15-37); BICARBONATE 19.6 MEQ/L (21.0-32.0); BLOOD UREA NITROGEN 82 MG/DL (7-18); CHLORIDE 112 MEQ/L (98-107); GLOMERULAR FILTRATION RATE 27 ML/MIN (>89); MAGNESIUM 3.1 MG/DL (1.5-2.5); POTASSIUM 3.8 MEQ/L (3.5-5.1); SODIUM (NA) 142 MEQ/L (136-145); TOTAL BILIRUBIN ADULT 0.9 MG/DL (0.2-1.0)
[2016-08-08] MEDS: LACTULOSE SYRUP 20 GM/30 ML CUP PO SCH ×4 (05:50→17:37)
[2016-08-08] MEDS: METOCLOPRAMIDE HCL 10 MG/2 ML VIAL IV PUSH SCH ×2 (05:50→14:11)
[2016-08-08] MEDS: ARTIFICIAL TEARS OPTH SOLN 15 ML BTL EACH EYE SCH ×3 (05:51→22:00)
[2016-08-08] MEDS: INSULIN NovoLIN REGULAR SUPPLEMENTAL SCALE SQ SCH ×4 (06:00→17:37)
[2016-08-08] MEDS: FLUCONAZOLE 100 MG PREMIX BAG 50 ML IV SCH (07:36)
[2016-08-08] MEDS: MULTIVITAMIN TAB PO SCH (07:37)
[2016-08-08] MEDS: THIAMINE HCL 100 MG TAB PO SCH (07:37)
[2016-08-08] MEDS: DOCUSATE SODIUM 50 MG/SENNA 8.6 MG TAB PO SCH ×2 (07:37→21:00)
[2016-08-08] MEDS: ASPIRIN 81 MG CHEW TAB CHEW SCH (07:37)
[2016-08-08] MEDS: DOXAZOSIN MESYLATE 2 MG TAB PO SCH (07:37)
[2016-08-08] MEDS: MODAFINIL 200 MG TAB PO SCH (07:37)
[2016-08-08] MEDS: POLYETHYLENE GLYCOL 17 GM PKG OG-TUBE SCH (07:38)
[2016-08-08] MEDS: HEPARIN SODIUM - SQ 10,000 UNITS/ML VIAL SQ SCH (07:38)
[2016-08-08] MEDS: SODIUM CHLORIDE 0.9% FLUSH 10 ML FLUSH IVF SCH (07:38)
[2016-08-08] MEDS: FAMOTIDINE 40 MG/5 ML LIQ 50 ML BTL NG SCH ×2 (07:38→21:00)
[2016-08-08] MEDS: CHLORHEXIDINE 0.12% (ORAL KIT) 15 ML CUP MT SCH ×2 (07:38→20:00)
--- NOTE | 2016-08-08 14:51 | HHI.CCPN ---
Subjective Remarks/Hospital Course Hospital Course: This is a 60-year-old male who is transferred emergently from outside hospital with per report and acute type B dissection. Apparently the patient told his family member today that he had searing back pain and was taken to the emergency department. A CT of the chest at that time showed a type B dissection. The patient was intubated the outside facility and transferred to [facility] for emergent evaluation management. Unfortunately, the patient is unable to provide any additional history at this time. I was at bedside and the patient arrived to the surgical intensive care unit. Dr. Long and I both evaluated the patient and when he arrived he was in a junctional bradycardia with heart rate in the 40s. He had obvious ST depressions in lead II on telemetry. Our initial concern was that we have extended the dissection into the type A dissection. We also did not have any CT of the abdomen and pelvis. On her physical exam, the patient had a cold left foot without pulses. I emergently placed a right radial arterial line, please see separate procedure note for details. We then went emergently to the CT scanner for repeat CT aortogram of the chest abdomen and pelvis to investigate the extent to which the dissection has extended. The CT aortogram demonstrated that this was still a type B dissection with the celiac artery being significantly compressed and possibly comprising flow from the dissection flap. The right kidney appears to be perfused off the false lumen and not the true lumen, and there is no contrast going down the left femoral artery. Patient was then brought back to the intensive care unit. His blood pressure is controlled on nicardipine infusion for goal systolic blood pressure less than 110. A 12-lead EKG at that time was done which demonstrated significant ST depressions in the inferior leads as well as the far lateral leads consistent with subendocardial ischemia. At the request of Dr. Long in anticipation of going emergently to the operative theater, I placed a lumbar drain for spinal protection, please see separate procedure note for details. At that point the patient was taken emergently to the operating room. Critical care medicine is been consulted to evaluate and manage the patient's type B dissection, hemodynamic's, acute hypoxic respiratory failure. 07/05: taken to OR for TEVAR overnight. lactate cleared overnight. uop adequate. Cr elevated to 1.8 this AM. He is on Coreg 50 mg by mouth 07/06: oliguric overnight. Cr rising. however, lactate cleared. other markers of end-organ perfusion better. likely ATN from time of dissection. awake following commands. moving bilateral lower extremities. clear CSF in lumbar drain. on intermittent norepinephrine to maintain spinal perfusion. 07/07: extubated yesterday, followed commands, good pulmonary mechanics. However , after extubation, became acutely delirious- probable combination of etoh withdraw and icu delirium, some pain. mental status waxed and waned throughout the day and ultimately reintubated overnight for worsening waning mental status and hypoxia. post-extubation it has been documented that he continues to move his bilateral lower extremities to painful stimuli and spontaneously. does not follow commands this morning. troponins downtrending. cardiology evaluated the patient yesterday, formal note pending, but per my conversation, plan was for ongoing conservative management as we are doing, and plan for nuc med stress test when stable. 07/08: still moving bilateral LEs spontaneously and w/d to pain. remains intubated with persistent agitation. hypoxia improving. platelets continue to fall, likely a combination of consumption, BUBBA, liver disease. will give unit of platelets prior to d/c lumbar drain. 07/09: Troponin spill resolving without evidence of ongoing injury. Major obstacle is agitation related to ETOH withdrawal followed by necessary sedation. Continue to work toward vent weaning. 07/10: Afebrile. Not following commands. Continues to be agitated for reasons above. Tolerating tube feeding at goal rate. Creatinine hopefully has plateaued. 07/11: CURRENT TEMPERATURE 100.2. MRI brain yesterday revealed left cellular restricted diffusion area likely acute infarct with small punctate areas within the coronal radiata possibly embolic event. Patient is arousable and will move all 4 extremities but not following commands. Left foot remains cool. Tolerating tube feeding. No bowel movement times 4 days. 07/12: Tmax 99.7. Currently 99. Noted right vertebral/distal left MCA/mid right ASSIGNMENT EDITOR stenosis on imaging yesterday. Central line exchange from right to left side due to bleeding. No bowel movement for tolerating tube feedings with very low residuals. Still wean sedation. 07/13: Currently afebrile. Patient with soap side enema yesterday with's positive BM 3 overnight.. Go containment device currently in place. Currently hypertensive/when necessary labetalol and clonidine will be added. Noted liberalize SCI around 120 systolic blood pressure. Arousable on the ventilator and moves all 4 extremities spontaneously but not following commands. 07/14: Tmax 99.3. No significant bowel movement overnight. Currently hypotensive. Noted SCI around 120 systolic blood pressure recommended by vascular surgery. Arousable on ventilator on sedation vacation moves all 4 extremity spontaneously but not to commands. 07/15: Afebrile. -2775 cc stool past 24 hours. Currently hypertensive. Bradycardic. Requiring antihypertensives. Plan for percutaneous cholecystostomy tube today. 07/16: Remains afebrile. CXR clearing. Renal injury without change, spontaneous urine acceptable. 07/17: No material change. Tolerates CPAP. 07/18: Family is talking with palliative Care service. 07/19: Will try CPAP with decreasing pressure support. DNR status clouds issue for extubation. 07/20: Failed SBT yesterday, could not tolerate lower pressure support. 07/21: Tolerates 5/5 SBT for several hours. Unresponsive, no eye opening today. No improvement in motor function. Extensive discussion with his brother Luis yesterday. Family is pretty consolidated in their wish to withdraw artificial support. Hopefully we can discuss options with all principals Friday. 07/22: Nods head accurately to questions today. Moves 4 limbs to command, left is minimal. 07/23: Patient nods head yes to wanting re-intubation and trach if necessary. He nods "yes" to wanting us to do everything to help him live. 07/24: Still wants trial extubation and reintubation if necessary. 07/25: Extubated 24 hours ago. Sleepy and accumulating secretions in upper airway. He will require a protected airway. His interaction with me over the past three days have all indicated that he wants us to perform a tracheostomy if he fails the extubation trial. He confirms his desire to live and remain full code status. 07/26: Stronger, more alert on trach ventilation. Dobbhoff or PEG mcc? 07/27: Renal function continues to improve. More alert, interactive. 07/28: Remains on mechanical ventilation via tracheostomy. Awake and alert. 07/29: Spiked temperature 101.3 last night. Tolerated T piece for 2 hours yesterday. 07/30: still somnolent. urine growing budding yeast. 07/31: more awake today. localizing. nonfocal. wbc elevated, low grade temps, but non-toxic appearing. 08/01: worsening encephalopathy today. still nonfocal, but either severe hypoactive delirium vs. structural problem. will obtain MRI. still with low- grade temps. Cr continues to worsen. 08/02: persistent encephalopathy. Ammonia elevated. Cr plateaued. cultures NGTD. CT scan with ?RLL pna, but no clinical signs of pneumonia, no increased secretions or o2 requirement. just started having BMs today with lactulose which was started yesterday. 08/03: neuro exam only slightly improved. wbc still elevated. afebrile. cultures NGTD. ammonia downtrending. Cr improving. Subjective: 08/04: persistent encephalopathy. but fever curve continues to trend down. ammonia elevated slightly again today. wbc very slowly downtrending. cultures remain NG. Cr improved. sodium improved. 08/05: Afebrile, WBC stable. Creat improved from 3.6 to 3.4 UO 975 ml in 24 hours. Follows commands in RLE to RN 08/06: Eyes open spontaneously, not following commands today. UO adequate. Ammonia level remains high at 82. Dr. Long d/w Family, they request ALT code with intubation only 08/07: More awake today, still not following commands. High tube feed residuals. BUN creat improving 100/3.4 -->95/3.0. UO adequate 08/08: Awake, but remains encephalopathic. Bun/creat improving 82/2.46. UO 1.8L. Objective Vital Signs Date Time Temp Pulse Resp B/P Pulse Ox O2 Delivery O2 Flow Rate FiO2 08/08/16 10:00 99 08/08/16 08:00 98.6 10 125/78 99 08/08/16 07:50 T-piece 6.00 28 Intake and Output 08/07/16 08/07/16 08/08/16 08:00 16:00 00:00 Intake Total 826 ml 378 ml 250 ml Output Total 670 ml 750 ml 770 ml Balance 156 ml -372 ml -520 ml Result Diagram: 08/08/16 0410 08/08/16 0410 Other Results Microbiology Date/Time Procedure Status Source Growth 08/05/16 16:40 Stool Occult Blood (CODY) - Final Complete Stool Stool HEMOCCULT POSITIVE Imaging Last Impressions Chest X-Ray 07/15/16 0600 Signed Impressions: Service Date/Time: Friday, July 15, 2016 04:38 - CONCLUSION: Some worsening of the bilateral pulmonary infiltrates. Joe Appiah Jr., MD Abdomen X-Ray 07/15/16 0600 Signed Impressions: Service Date/Time: Friday, July 15, 2016 04:41 - CONCLUSION: No dilated bowel to suggest an obstruction. Joe Appiah Jr., MD Gall Bladder Ultrasound 07/14/16 0000 Signed Impressions: Service Date/Time: Thursday, July 14, 2016 11:36 - CONCLUSION: Abnormal gallbladder as described above. Cholecystitis would be consideration. The patient is only minimally tender around the gallbladder. Donis Hernandez MD FACR Abdomen/Pelvis CT 07/13/16 0000 Signed Impressions: Service Date/Time: Wednesday, July 13, 2016 17:29 - CONCLUSION: 1. Abnormal appearance of the gallbladder with wall thickening and possible pericholecystic fluid. No calcified stones. Recommend hepatobiliary tract scan to evaluate for acalculus cholecystitis. 2. Bilateral lower lung consolidation and bilateral pleural effusions. 3. Moderate amount of stool in the left colon. 4. Bilateral nonobstructing renal stones. Joe De Leon MD Neck Magnetic Resonance Angiography 07/11/16 0000 Signed Impressions: Service Date/Time: June 14:29 - CONCLUSION: 1. No evidence of carotid stenosis. 2. Short segment high-grade stenosis involving the mid right vertebral artery greater than 80 with a patent left vertebral artery Abhijeet Salinas MD Head Magnetic Resonance Angiography 07/11/16 0000 Signed Impressions: Service Date/Time: June 14:29 - CONCLUSION: 1. Evidence of atherosclerotic disease with focal distal left MCA branch stenosis and focal mid right ASSIGNMENT EDITOR stenosis. 2. No proximal high grade stenosis or aneurysm. Bladimir Gasca MD Brain MRI 07/10/16 0000 Signed Impressions: Service Date/Time: Sunday, July 10, 2016 15:03 - CONCLUSION: 1. Small punctate infarcts involving the left cerebellar hemisphere and deep white matter bilaterally in this patient with a background of amyloid angiopathy. No acute hemorrhage is seen. Abhijeet Salinas MD Renal Ultrasound 07/08/16 0000 Signed Impressions: Service Date/Time: Friday, July 08, 2016 17:16 - CONCLUSION: 1. Resistive indices could not be obtained on the right side into the patient's body habitus and shadowing bowel gas. Left renal artery resistive indices are within normal limits. 2. No significant abdominal aortic aneurysm identified status post repair. 3. Probable 7 mm nonobstructing midpole right renal calculus. 4. Tiny left lower pole cyst measuring 1.5 cm. Hamlet Vinson MD Aorta CTA 07/04/16 0000 Signed Impressions: Service Date/Time: June 19:53 - CONCLUSION: 1. Extensive aortic dissection extending from the proximal transverse aorta just distal to the origin of the left subclavian artery. Dissection extends distally through both superficial femoral arteries. 2. Occlusion of the right renal artery with absent perfusion of the right kidney. Dissection of the left renal artery with absent perfusion of the anterior left kidney. 3. 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 4. Occlusion of left external iliac artery and right internal iliac artery. 5. ET tube in satisfactory position. Dependent consolidation in both lungs. Probable mild liver cirrhosis. No obstruction or free fluid. Randle catheter in decompressed bladder. See above discussion. Rodriguez Jeff MD Objective Remarks GENERAL: 60-year-old male, lying in bed, critically ill. HEENT: Normocephalic. Atraumatic. Pupils 3 mm, reactive NECK: Tracheostomy in place CHEST: On TP, Clear to auscultation, no wheezes rales or rhonchi. CARDIOVASCULAR: RRR. No JVD. Pansystolic murmur heard at apex ABDOMEN: Non-distended, soft. No rigidity. MUSCULOSKELETAL: Distal pulses 2+. NEUROLOGICAL: Somnolent, Withdraws both upper and LEs to noxious stimuli. Moving all extremities spontaneously. Not following commands, but tracks A/P Assessment and Plan Neuro/Psych: Left cerebellar lacunar infarct Right vertebral/distal left MCA and mid right ASSIGNMENT EDITOR stenosis Agitated Delirium Alcohol Withdrawal - up to 15 beers daily Alcohol dependence History of polysubstance abuse including crack cocaine Lumbar drain placement - removed 07/08 Insomnia MRI brain 07/10 revealed left cerebellar cystic diffusion region with small punctate areas in the suarez radiata likely embolic. Possible amyloid. MRA head/neck revealed right vertebral 80% short segment stenosis, distal left MCA and mid right ASSIGNMENT EDITOR stenosis EEG 07/10 revealed no seizure activity -- MRI 08/01 with new small infarct right splenium corpus callosum. -- ammonia level 130 --> 156 --> 52 --> 96 -->76-->82-->87. continue Rifaximin and Lactulose. Delirium/Withdraw regimen: --Haldol 5mg iv q4h prn for breakthrough agitation. --Provigil 200mg po daily for alertness --Dilaudid 0.25mg iv q4h prn. --Oxycodone 5mg po q4h prn. --Okayed with Dr. Long for aspirin 324 mg daily Melatonin 5 mg at night as needed for insomnia Daily thiamine 100 mg daily for EtOH use Respiratory: Acute hypoxic and hypercarbic respiratory failure --Remains on TP 04/11 as tolerated --Bronchodilator therapy every 6 hours and albuterol every 2 hours when needed Head of bed 30 Wean FiO2 for goal SPO2 greater than 90% - s/p Trach 07/25. Cardiovascular: Postop TEVAR with left lower ext fasciotomy secondary to type B aortic dissection with renal/visceral and left lower ext L perfusion Thoracic endovascular stent with left lower extremity fasciotomy/ compartments with [address] Long Acute type B dissection- secured Type II NSTEMI- Demand Ischemia Junction bradycardia- resolved. Lactic Acidosis- resolved. -- Initial elevated troponin likely combination of demand ischemia and poor renal clearance -- Cardiology: Dr. Mondragon following. plan for conservative management with myocardial perfusion scan when stable. -- 2d echo: EF 55%, no RWMA. 2-D echo 07/08 repeat EF 60-65%. Mild MR. Rt atrium dilated. RENO 49 mmHg. (Cesar systolic murmur secondary to MR most likely) --As needed labetalol for systolic blood pressure greater than 160 Renal: Acute kidney injury- resolving. Acute Tubular Necrosis Right and left nephrolithiasis Likely secondary to hypoperfusion of the kidney from dissection, ATN -- FENa 07/07 1.2% consistent with ATN. Urine eos negative. -- Strict I/Os Randle removed and condom cath placed jenny tropicalis uti. -- nephrology consult 07/08 appreciated. No indication for dialysis at this point -- UO remains adequate -- BUN Creat improving free water 300 q4h. holding scheduled Bumex give 1/2 NS for 24 hours at 100 ml per hour to correct Na FEN/GI: Colonic ileus Hyperammonemia Acute protein calorie malnutrition- mild Non-anion gap metabolic acidosis- resolved. Hyper-magnesium Hypernatremia History of peptic ulcer disease Hepatitis C -from IV drug use Elevated AST TF: Nepro at goal 40 cc an hour --nutrition consult. --phosLo d/c'd 07/31 for hypophosphatemia. Protonix for GI prophylaxis. Stephie-Colace twice a day for bowel regimen. MiraLAX twice a day KUB revealed 8 cm transverse colon ileus. Positive results with enema. CT abdomen/those revealed wall thickening or gallbladder. 2 right midpole no obstructing kidney stones, left circumflex continues on, to semi-bilateral pleural effusions and large amount stool left colon. s/p percutaneous cholecystostomy tube for gallbladder 07/15. Not a surgical candidate at this time. daily bmp, phos Continue lactulose and Xifaxan Heme/ID: Leukocytosis Acute Blood Loss Anemia Thrombocytopenia-resolved Daily CBC --thrombocytopenia is likely multifactorial from liver disease, consumptive from critical illness and dissection. Blood cultures/sputum/urine ordered 07/11 no growth to date Pancultured 07/29 for fevers - NGTD. urine culture 07/29 jenny tropicalis -- Fluconazole 100mg iv q24h x 14 day course. anticipated stop date 08/15 -- Procalcitonin 08/03 0.76 making him "moderate risk" of infectious etiology. would recommend trending this over the course of his treatment to ensure we are not missing secondary infection -- will continue to hold off on broad spectrum abx as patient is clinically improving. Endocrine: Hyperglycemia of critical illness -- SSI, medium scale, every 6 hours Prophylaxis: GI Prophylaxis po pepcid. DVT Prophylaxis -- SCDs/heparin . Lines: 07/13 -radial arterial line - out --07/04-07/11 right IJ cortis -- Left IJ CVL 07/11 - out -- condom cath. no randle. may require replacement of randle if he has significant urinary retention. Dr. Campos spoke at length with patient's brother Luis after the procedure and we established a plan to watch him closely while he's off all sedation and reassess his mental status. Overall impression: persistently somnolent. afebrile now. cultures remain negative. will need long-term placement. continue pulmonary rehab with daily SBTs and OOB to stretcher chair. Code status ALT CODE, Intubation only [facility] consulted for medical management from am 08/09/16. (Dr. Long is primary) Eriberto Ryder MD Aug 08, 2016 14:51
--- NOTE | 2016-08-08 15:59 | PD.VS.PN ---
Subjective Subjective/Hospital Course mental status not improved Remains off vent. Renal function improving. Objective Vitals/I&O Date Time Temp Pulse Resp B/P Pulse Ox O2 Delivery O2 Flow Rate FiO2 08/08/16 14:00 96 08/08/16 12:00 110 08/08/16 12:00 98.6 100 21 161/89 99 08/08/16 10:00 99 08/08/16 08:00 98.6 101 10 125/78 99 08/08/16 08:00 101 08/08/16 07:50 99 T-piece 6.00 28 08/08/16 07:00 99 T-Piece 6.00 40 08/08/16 06:00 89 08/08/16 04:00 87 08/08/16 04:00 98.6 92 19 130/64 98 08/08/16 00:00 87 08/08/16 00:00 98.7 101 28 145/79 97 08/07/16 22:51 99 T-piece 6.00 28 08/07/16 22:00 87 08/07/16 20:00 95 08/07/16 20:00 96 T-Piece 6.00 40 08/07/16 20:00 98.1 95 15 157/73 96 08/07/16 18:00 104 08/07/16 16:00 40 08/07/16 16:00 98.0 108 20 145/78 98 08/07/16 16:00 105 08/08/16 08/08/16 08/08/16 07:00 15:00 23:00 Intake Total 269 ml 451 ml Output Total 1050 ml 600 ml Balance -781 ml -149 ml Physical Exam Moves all extremities Doesn't appear to follow complex commands. Laboratory Laboratory Tests Test 08/08/16 04:10 White Blood Count 9.2 Red Blood Count 2.87 Hemoglobin 9.2 Hematocrit 26.8 Mean Corpuscular Volume 93.4 Mean Corpuscular Hemoglobin 32.1 Mean Corpuscular Hemoglobin 34.4 Concent Red Cell Distribution Width 15.5 Platelet Count 422 Mean Platelet Volume 8.3 Neutrophils (%) (Auto) 64.9 Lymphocytes (%) (Auto) 12.5 Monocytes (%) (Auto) 14.2 Eosinophils (%) (Auto) 6.6 Basophils (%) (Auto) 1.8 Neutrophils # (Auto) 5.9 Lymphocytes # (Auto) 1.1 Monocytes # (Auto) 1.3 Eosinophils # (Auto) 0.6 Basophils # (Auto) 0.2 CBC Comment DIFF FINAL Differential Comment Sodium Level 142 Potassium Level 3.8 Chloride Level 112 Carbon Dioxide Level 19.6 Anion Gap 10 Blood Urea Nitrogen 82 Creatinine 2.46 Estimat Glomerular Filtration 27 Rate Random Glucose 109 Calcium Level 8.9 Magnesium Level 3.1 Total Bilirubin 0.9 Aspartate Amino Transf 53 (AST/SGOT) Alanine Aminotransferase 35 (ALT/SGPT) Alkaline Phosphatase 95 Ammonia 90 Total Protein 8.1 Albumin 2.0 Date/Time Procedure Status Source Growth 08/05/16 16:40 Stool Occult Blood (CODY) - Final Complete Stool Stool HEMOCCULT POSITIVE Imaging Last 48 hours Impressions Chest X-Ray 08/07/16 0600 Signed Impressions: Service Date/Time: Sunday, August 07, 2016 03:44 - CONCLUSION: Improving mild right lower lung infiltrate. Viraj Johnson MD Assessment and Plan Assessment: (1) Dissecting aneurysm of thoracic aorta, Saran type B Status: Acute Plan I spoke at length with the brother. He wants a hospice consult with no progression in the patient's mental status. I have placed this order. Agree with full DNR. Hamlet Long MD FACS medical assistant dermatology [facility] Hamlet Long MD Aug 08, 2016 15:59
[2016-08-08] MEDS: SODIUM CHLOR 0.9% 1000 ML INJ 1,000 ML IV SCH (17:38)
[2016-08-08] MEDS: HYDROmorphone HCL PF 1 MG/ML VIAL IV PUSH PRN (22:42)
[2016-08-09] VITALS (9 sets, daily range): BP systolic 132–175; BP diastolic 69–84; PULSE 87–110; RESP 12–26; TEMP 98–98.1; O2SAT 97–100
[2016-08-09] MEDS: HYDROmorphone HCL PF 1 MG/ML VIAL IV PUSH PRN ×3 (02:23→13:43)
[2016-08-09] MEDS: CHLORHEXIDINE GLUCONATE 2 % 1 PACK (2 CLOTHS) TOP SCH (04:00)
[2016-08-09] MEDS: ARTIFICIAL TEARS OPTH SOLN 15 ML BTL EACH EYE SCH ×2 (06:00→14:00)
[2016-08-09] MEDS: hydrALAZINE HCL 20 MG/ML VIAL IV PRN (06:27)
[2016-08-09] MEDS: CHLORHEXIDINE 0.12% (ORAL KIT) 15 ML CUP MT SCH (08:40)
[2016-08-09] MEDS: DOCUSATE SODIUM 50 MG/SENNA 8.6 MG TAB PO SCH (08:41)
[2016-08-09] MEDS: FAMOTIDINE 40 MG/5 ML LIQ 50 ML BTL NG SCH (08:41)
--- NOTE | 2016-08-09 10:12 | PD.VS.PN ---
Subjective Subjective/Hospital Course Pt remains off vent with no change in mental status Objective Vitals/I&O Date Time Temp Pulse Resp B/P Pulse Ox O2 Delivery O2 Flow Rate FiO2 08/09/16 08:30 99 T-Piece 6.00 40 08/09/16 08:22 97 T-piece 6.00 28 08/09/16 06:00 87 08/09/16 04:00 87 08/09/16 04:00 98.0 88 16 156/72 99 08/09/16 02:00 91 08/09/16 00:00 87 08/09/16 00:00 98.1 87 12 132/69 99 08/08/16 23:26 97 T-piece 6.00 28 08/08/16 22:00 88 08/08/16 20:00 98.7 101 14 155/74 99 08/08/16 20:00 100 08/08/16 20:00 99 T-Piece 6.00 40 08/08/16 18:00 100 08/08/16 16:00 98.6 100 21 163/77 99 08/08/16 16:00 96 08/08/16 14:00 96 08/08/16 12:00 110 08/08/16 12:00 98.6 100 21 161/89 99 08/09/16 08/09/16 08/09/16 07:00 15:00 23:00 Output Total 670 ml Balance -670 ml Laboratory Date/Time Procedure Status Source Growth 08/05/16 16:40 Stool Occult Blood (CODY) - Final Complete Stool Stool HEMOCCULT POSITIVE Imaging Last 72 hours Impressions Chest X-Ray 08/07/16 0600 Signed Impressions: Service Date/Time: Sunday, August 07, 2016 03:44 - CONCLUSION: Improving mild right lower lung infiltrate. Viraj Johnson MD Assessment and Plan Assessment: (1) Dissecting aneurysm of thoracic aorta, Saran type B Status: Acute Plan Plan Hospice consult [facility] [phone] Tamika Kaye Aug 09, 2016 10:12
--- NOTE | 2016-08-09 11:10 | PD.VS.DC ---
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 Story from referring hospital and pt's brother is that he had shearing back pain today and presented to the ED. A CT of the chest showed a type B dissection. The patient was intubated at the outside facility so the history is obtained from records and the brother. At the time of arrival, the patient has a junctional rhythm and ST changes c/w ischemia. By report, he was moving everything prior to intubation and only complaining of back pain. Procedure(s): TEVAR, L LE fasciotomies for acute TBAD with visceral/renal/LLE malperfusion Significant Findings Laboratory Tests Test 08/07/16 08/08/16 13:02 04:10 Ammonia 87 MCMOL/L 90 MCMOL/L (11-32) (11-32) Red Blood Count 2.87 MIL/MM3 (4.50-5.90) Hemoglobin 9.2 GM/DL (13.0-17.0) Hematocrit 26.8 % (39.0-51.0) Monocytes (%) (Auto) 14.2 % (0.0-8.0) Eosinophils (%) (Auto) 6.6 % (0.0-4.0) Monocytes # (Auto) 1.3 TH/MM3 (0-0.9) Eosinophils # (Auto) 0.6 TH/MM3 (0-0.4) Chloride Level 112 MEQ/L (98-107) Carbon Dioxide Level 19.6 MEQ/L (21.0-32.0) Blood Urea Nitrogen 82 MG/DL (7-18) Creatinine 2.46 MG/DL (0.60-1.30) Estimat Glomerular Filtration 27 ML/MIN (>89) Rate Random Glucose 109 MG/DL (74-106) Magnesium Level 3.1 MG/DL (1.5-2.5) Aspartate Amino Transf 53 U/L (15-37) (AST/SGOT) Albumin 2.0 GM/DL (3.4-5.0) Hospital Course: 60 yo male adm as emergent transfer for acute dissection. Story from referring hospital and pt's brother is that he had shearing back pain today and presented to the ED. A CT of the chest showed a type B dissection. The patient was intubated at the outside facility so the history is obtained from records and the brother. At the time of arrival, the patient has a junctional rhythm and ST changes c/w ischemia. By report, he was moving everything prior to intubation and only complaining of back pain. S/P TEVAR, L LE fasciotomies for acute TBAD with visceral/renal/LLE malperfusion Pt with no change in mental status (not improved) Remains off vent Family requesting Hospice Transfer Allergies Coded Allergies Type Severity Reaction Last Updated Verified No Known Allergies 01/18/07 Yes Recent Impressions Chest X-Ray 08/07/16 0600 Signed Impressions: Service Date/Time: Sunday, August 07, 2016 03:44 - CONCLUSION: Improving mild right lower lung infiltrate. Viraj Johnson MD /////// 06:00 18:00 06:00 18:00 06:00 18:00 Intake Total 1246 ml 378 ml 519 ml 451 ml 60 ml Output Total 1220 ml 750 ml 1820 ml 600 ml 1520 ml Balance 26 ml -372 ml -1301 ml -149 ml -1460 ml IV Total 141 ml 108 ml 161 ml Tube Feeding 205 ml 70 ml 119 ml 90 ml 60 ml Other 900 ml 200 ml 400 ml 200 ml Output Urine Total 900 ml 550 ml 1250 ml 400 ml 1150 ml Stool Total 200 ml 100 ml 300 ml 50 ml 200 ml Drainage Total 120 ml 100 ml 270 ml 150 ml 170 ml Laboratory Tests Test 08/07/16 08/08/16 13:02 04:10 Ammonia 87 MCMOL/L 90 MCMOL/L White Blood Count 9.2 TH/MM3 Red Blood Count 2.87 MIL/MM3 Hemoglobin 9.2 GM/DL Hematocrit 26.8 % Mean Corpuscular Volume 93.4 FL Mean Corpuscular Hemoglobin 32.1 PG Mean Corpuscular Hemoglobin 34.4 % Concent Red Cell Distribution Width 15.5 % Platelet Count 422 TH/MM3 Mean Platelet Volume 8.3 FL Neutrophils (%) (Auto) 64.9 % Lymphocytes (%) (Auto) 12.5 % Monocytes (%) (Auto) 14.2 % Eosinophils (%) (Auto) 6.6 % Basophils (%) (Auto) 1.8 % Neutrophils # (Auto) 5.9 TH/MM3 Lymphocytes # (Auto) 1.1 TH/MM3 Monocytes # (Auto) 1.3 TH/MM3 Eosinophils # (Auto) 0.6 TH/MM3 Basophils # (Auto) 0.2 TH/MM3 CBC Comment DIFF FINAL Differential Comment Sodium Level 142 MEQ/L Potassium Level 3.8 MEQ/L Chloride Level 112 MEQ/L Carbon Dioxide Level 19.6 MEQ/L Anion Gap 10 MEQ/L Blood Urea Nitrogen 82 MG/DL Creatinine 2.46 MG/DL Estimat Glomerular Filtration 27 ML/MIN Rate Random Glucose 109 MG/DL Calcium Level 8.9 MG/DL Magnesium Level 3.1 MG/DL Total Bilirubin 0.9 MG/DL Aspartate Amino Transf 53 U/L (AST/SGOT) Alanine Aminotransferase 35 U/L (ALT/SGPT) Alkaline Phosphatase 95 U/L Total Protein 8.1 GM/DL Albumin 2.0 GM/DL Procedure Category Date Status Time Consult Wound / CONS 08/06/16 Transmitted Ostomy Nurse Chest, Single Ap RADDIAG 08/07/16 Resulted 06:00 Code Status CODE 08/06/16 Complete 13:13 Ot Request For Service OT 08/06/16 Logged 18:07 Complete Blood Count LAB 08/08/16 Complete With Diff 06:00 Comprehensive LAB 08/08/16 Complete Metabolic Panel 06:00 Magnesium (Mg) LAB 08/08/16 Complete 06:00 Ammonia LAB 08/08/16 Complete 06:00 Ammonia LAB 08/07/16 Complete 12:00 Resp Trach Collar RSP 08/07/16 Logged Activity Oob With FRANCISCA 08/07/16 In Process Assistance 12:00 ^ Other Nursing Orders FRANCISCA 08/07/16 In Process 12:10 Metoclopramide Inj MED 08/07/16 Complete (Reglan Inj) 14:00 Consult Hospitalist CONS 08/08/16 Transmitted 14:18 Hospice Consult CONS 08/08/16 Transmitted 15:56 (Hub Use Only)Inp Phy CONS 08/08/16 Transmitted Cons/Ref Code Status CODE 08/08/16 Transmitted 16:50 Patient Transfer ADMITTING 08/09/16 Transmitted Case Management CONS 08/09/16 Transmitted Consult Attending Discharge DISCHARGE 08/09/16 Transmitted Order Vital Signs Date Time Temp Pulse Resp B/P Pulse Ox O2 Delivery O2 Flow Rate FiO2 08/09/16 10:00 106 08/09/16 08:30 99 T-Piece 6.00 40 08/09/16 08:22 97 T-piece 6.00 28 08/09/16 08:00 110 08/09/16 08:00 98.0 110 26 150/74 99 08/09/16 06:53 109 08/09/16 06:00 87 08/09/16 04:00 87 08/09/16 04:00 98.0 88 16 156/72 99 08/09/16 02:00 91 08/09/16 00:00 87 08/09/16 00:00 98.1 87 12 132/69 99 08/08/16 23:26 97 T-piece 6.00 28 08/08/16 22:00 88 08/08/16 20:00 98.7 101 14 155/74 99 08/08/16 20:00 100 08/08/16 20:00 99 T-Piece 6.00 40 08/08/16 18:00 100 08/08/16 16:00 98.6 100 21 163/77 99 08/08/16 16:00 96 08/08/16 14:00 96 08/08/16 12:00 110 08/08/16 12:00 98.6 100 21 161/89 99 08/08/16 10:00 99 08/08/16 08:00 98.6 101 10 125/78 99 08/08/16 08:00 101 08/08/16 07:50 99 T-piece 6.00 28 08/08/16 07:00 99 T-Piece 6.00 40 08/08/16 06:00 89 08/08/16 04:00 87 08/08/16 04:00 98.6 92 19 130/64 98 08/08/16 00:00 87 08/08/16 00:00 98.7 101 28 145/79 97 08/07/16 22:51 99 T-piece 6.00 28 08/07/16 22:00 87 08/07/16 20:00 95 08/07/16 20:00 96 T-Piece 6.00 40 08/07/16 20:00 98.1 95 15 157/73 96 08/07/16 18:00 104 08/07/16 16:00 40 08/07/16 16:00 98.0 108 20 145/78 98 08/07/16 16:00 105 08/07/16 14:00 106 08/07/16 12:00 93 08/07/16 12:00 98.0 93 14 158/81 98 08/07/16 12:00 40 08/07/16 10:00 90 08/07/16 08:00 86 08/07/16 08:00 40 08/07/16 08:00 97.5 90 10 156/77 98 08/07/16 07:37 98 T-piece 5.00 28 08/07/16 07:00 97 T-Piece 6.00 40 08/07/16 06:00 80 08/07/16 04:00 99.0 82 19 146/67 98 08/07/16 04:00 40 08/07/16 04:00 80 08/07/16 03:35 19 08/07/16 02:00 84 08/07/16 00:00 40 08/07/16 00:00 101 08/07/16 00:00 98.9 96 22 157/74 98 08/06/16 22:00 101 08/06/16 20:00 98.9 103 21 149/66 98 08/06/16 20:00 103 08/06/16 20:00 100 T-Piece 6.00 40 08/06/16 20:00 40 08/06/16 19:19 95 T-piece 6.00 28 08/06/16 18:00 109 08/06/16 16:00 98.5 97 13 162/71 97 08/06/16 16:00 40 08/06/16 16:00 97 08/06/16 14:00 85 08/06/16 12:00 98.2 83 13 145/73 98 08/06/16 12:00 40 08/06/16 12:00 83 Discharge Condition: Stable Discharge Disposition: Hospice/Med Facility Discharge Instructions: Pt d/c'd to hospice per family request Any questions or concerns: Call [facility] [phone] Tamika Kaye Aug 09, 2016 11:10
== END 2016-08-09 14:32 | disposition hospice, inpatient (51) | DRG 3 ==
LOC: N03A 18:59
PROVIDERS: ADMIT Surgery; ATTEND Surgery
PROC: 5A1955Z Respiratory Ventilation, Greater than 96 Consecutive Hours (ICD-10-PCS; 2016-07-04)
PROC: 0KNT0ZZ Release Left Lower Leg Muscle, Open Approach (ICD-10-PCS; 2016-07-04)
PROC: 03HY32Z Insertion of Monitoring Device into Upper Artery, Percutaneous Approach (ICD-10-PCS; 2016-07-04)
PROC: 009U3ZZ Drainage of Spinal Canal, Percutaneous Approach (ICD-10-PCS; 2016-07-04)
PROC: 02VX3DZ Restriction of Thoracic Aorta, Ascending/Arch with Intraluminal Device, Percutaneous Approach (ICD-10-PCS; principal; 2016-07-04 21:24)
PROC: 30233R1 Transfusion of Nonautologous Platelets into Peripheral Vein, Percutaneous Approach (ICD-10-PCS; 2016-07-08)
PROC: 02HV33Z Insertion of Infusion Device into Superior Vena Cava, Percutaneous Approach (ICD-10-PCS; 2016-07-11)
PROC: 0DBN8ZX Excision of Sigmoid Colon, Via Natural or Artificial Opening Endoscopic, Diagnostic (ICD-10-PCS; 2016-07-14)
PROC: 0D7L8ZZ Dilation of Transverse Colon, Via Natural or Artificial Opening Endoscopic (ICD-10-PCS; 2016-07-14)
PROC: 0F9430Z Drainage of Gallbladder with Drainage Device, Percutaneous Approach (ICD-10-PCS; 2016-07-15)
PROC: 0B113F4 Bypass Trachea to Cutaneous with Tracheostomy Device, Percutaneous Approach (ICD-10-PCS; 2016-07-25)
PROC: 5A1955Z Respiratory Ventilation, Greater than 96 Consecutive Hours (ICD-10-PCS; 2016-07-25)
PROC: 0BJ08ZZ Inspection of Tracheobronchial Tree, Via Natural or Artificial Opening Endoscopic (ICD-10-PCS; 2016-07-25)
DX: I71.01 Dissection of thoracic aorta (principal); I63.40 Cerebral infarction due to embolism of unspecified cerebral artery; I21.4 Non-ST elevation (NSTEMI) myocardial infarction; N17.0 Acute kidney failure with tubular necrosis; G93.41 Metabolic encephalopathy; E87.0 Hyperosmolality and hypernatremia; F10.231 Alcohol dependence with withdrawal delirium; J96.01 Acute respiratory failure with hypoxia; J96.02 Acute respiratory failure with hypercapnia; N28.0 Ischemia and infarction of kidney; E87.2 Acidosis; E87.1 Hypo-osmolality and hyponatremia; D62 Acute posthemorrhagic anemia; E44.1 Mild protein-calorie malnutrition; K56.7 Ileus, unspecified; K59.39 Other megacolon; B37.49 Other urogenital candidiasis; R73.9 Hyperglycemia, unspecified; I25.10 Atherosclerotic heart disease of native coronary artery without angina pectoris; B19.20 Unspecified viral hepatitis C without hepatic coma; E83.39 Other disorders of phosphorus metabolism; E87.5 Hyperkalemia; E87.6 Hypokalemia; E87.8 Other disorders of electrolyte and fluid balance, not elsewhere classified; N20.0 Calculus of kidney; Z51.5 Encounter for palliative care; K64.4 Residual hemorrhoidal skin tags; K64.8 Other hemorrhoids; I66.02 Occlusion and stenosis of left middle cerebral artery; I65.01 Occlusion and stenosis of right vertebral artery; R00.1 Bradycardia, unspecified; E83.41 Hypermagnesemia; E86.1 Hypovolemia; I66.21 Occlusion and stenosis of right posterior cerebral artery; G47.00 Insomnia, unspecified; D69.59 Other secondary thrombocytopenia; I99.8 Other disorder of circulatory system; K81.9 Cholecystitis, unspecified; J44.9 Chronic obstructive pulmonary disease, unspecified; F17.210 Nicotine dependence, cigarettes, uncomplicated; I10 Essential (primary) hypertension; D72.829 Elevated white blood cell count, unspecified; Z91.14 Patient's other noncompliance with medication regimen
CPT/HCPCS: 36430; 36556; 36620; 47490; 70544; 70547; 70551; 71010; 71250; 71275; 74000; 74174; 74176; 75736; 76705; 76937; 80048; 80053; 80069; 80076; 81001; 82140; 82272; 82550; 82552; 82570; 82805; 82948; 83605; 83690; 83735; 84100; 84132; 84134; 84145; 84155; 84300; 84484; 84540; 85007; 85014; 85018; 85025; 85027; 85610; 85730; 86850; 86900; 86901; 86920; 87040; 87070; 87077; 87086; 87205; 87641; 88305; 93005; 93306; 93308; 93975; 94002; 94003; 94640; 94664; 94667; 95819; 99152; 99153; A7521; C1725; C1729; C1753; C1769; C9113; J0171; J0360; J0461; J0610; J0690; J1120; J1170; J1205; J1250; J1450; J1630; J1644; J1956; J2060; J2150; J2212; J2250; J2310; J2370; J2543; J2720; J2765; J3010; J3411; J3480; J3486; J7030; J7040; J7050; J7060; J7070; J7120; J7613; P9016; P9035; P9045; Q9963; Q9967